=== PATIENT | male | born 1990 | race Caucasian/White ===

== ENCOUNTER 2021-12-30 12:58 | Emergency (ER) | payer OTHER, SELFPAY ==
[2021-12-30 15:11] VITALS: BP 103/67; PULSE 58; RESP 18; TEMP 36.4; O2SAT 99; BMI 25.8
--- NOTE | 2021-12-30 16:18 | ED.GENADULT ---
HPI - General Adult General Chief complaint: General Medical Stated complaint: methadone dose Time Seen by Provider: 12/30/21 16:10 Source: patient Mode of arrival: ambulatory Limitations: no limitations History of Present Illness HPI narrative: 31-year-old male history of opioid abuse presents to ED for his methadone dose. Patient states he missed his methadone dose this morning of 105 mg at the clinic. Patient states he woke up late to go to the clinic so they gave him a verrifcation letter signed by a nurse practitioner which states he take 105 mg of methadone. Patient denies any active drug use. Patient's secondary complaint is mild abdominal pain that resolved on its own. Patient denies any nausea, vomiting, chest pain, shortness of breath, weakness, dysuria, hematuria, flank pain, fever, testicular pain, or chills. Related Data Home Medications Medication Instructions Recorded Confirmed methadone 10 mg/mL oral concentrate 105 mg PO DAILY 12/30/21 12/30/21 Allergies Allergy/AdvReac Type Severity Reaction Status Date / Time amoxicillin Allergy Hives Verified 12/30/21 15:10 Penicillins [PCN] Allergy Hives Verified 12/30/21 15:10 Review of Systems Review of Systems: Methadone dose. Resolved abdominal pain Yes all other systems are reviewed and are negative PMFSH Social History Social History Advance Directives: No Advance Directives Information Provided: No Physical Exam ED Vital Signs: Vital Signs - 24 hr 12/30/21 15:11 Temperature 97.6 F Pulse Rate 58 Respiratory Rate 18 Blood Pressure 103/67 Pulse Oximetry 99 Oxygen Delivery Method Room Air BMI result Body Mass Index 25.8 Const General: cooperative, healthy appearing, comfortable, no acute distress, well developed, alert, awake and Physically active Orientation/consciousness: oriented to time and patient oriented x3 HENMT Head: Yes normal to inspection, Yes No palpable skull fracture present, Yes normocephalic, Yes atraumatic and No abrasion Eyes Other: negative icerterus General: appearance normal, both eyes and all related structures Neck Neck: Yes normal visual inspection, Yes full ROM, Yes no lymphadenopathy, Yes no meningeal signs, Yes trachea midline, Yes supple, No anterior neck swelling and No tender Chest Chest palpation & inspection: normal inspection of the chest and normal palpation of entire chest wall Resp Effort & Inspection: normal respiratory effort and able to speak in complete sentences Auscultation: clear to auscultation bilaterally Cardio Jugular venous distension: no JVD Heart sounds: S1 normal heart sound present and S2 normal heart sound present GI Inspection: Yes normal to inspection and No abdominal wall ecchymosis Palpation (GI): Soft to palpation, not firm, nontender, no guarding and not rigid General: No CVA tenderness and Yes no CVA tenderness Back/Spine/Pelvis Back: no CVA tenderness, No CVA tenderness and No back tenderness Skin Other: negative jaundice General skin exam: no rashes or lesions noted, elasticity normal and turgor normal Neuro General: oriented to time, patient oriented x3, gait normal, no meningeal signs and CN's II-XI intact bilaterally Extrem General: Yes normal to inspection and Yes full ROM Psych Appearance: grossly normal, well kempt and not disheveled Course Course Course Narrative: Verification letter given to us by patient was sent for pharmacy. Methadone on 105 mg ordered Reevaluation(s) Reevaluation #1: Patient received methadone dose. No need for medical evaluation of abdomen. Patient not in any distress. Abdomen soft and benign. Patient asymptomatic. Negative for jaundice of skin or icterus of eyes. Patient to be discharged Discharge Plan Discharge Clinical Impression: Medication refill Patient Disposition: Home, Self-Care Instructions: Medicine Refill (ED) Additional Instructions: Please tomorrow follow up with the methadone clinic to receiving methadone. Return to the ED for any physical complaints or any concerning symptoms. Please follow-up with primary care provider Prescriptions: No Action methadone 10 mg/mL Concentrate 105 mg PO DAILY Print Language: [place]
[2021-12-30] MEDS: methADONE HCl 20 MG/2 ML ORAL.CONC 105 MG PO (17:31)
== END 2021-12-30 18:54 | disposition home or self-care (01) ==
PROVIDERS: Emergency Provider Student in an Organized Health Care Education/Training Program
DX: Z76.0 Encounter for issue of repeat prescription (principal)
CPT/HCPCS: 99282; 99283

== ENCOUNTER 2022-02-07 15:23 | Emergency (ER) | payer OTHER, SELFPAY ==
[2022-02-07 15:40] VITALS: BP 112/55; PULSE 60; RESP 16; TEMP 36.6; O2SAT 98; BMI 21.5
--- NOTE | 2022-02-07 16:52 | ED_ITS ---
HPI - General Adult General Chief complaint: General Medical Stated complaint: Med refill Time Seen by Provider: 02/07/22 16:27 Source: patient Mode of arrival: ambulatory Limitations: no limitations History of Present Illness HPI narrative: 31-year-old male with history of substance abuse who presents to the ER seeking his methadone dose which he missed this morning. Patient tells me he takes 125 mg daily. He goes to be a [facility]. His last dose was yesterday. He tells me he did not make it to the clinic today because he slept in. Patient is also interested in detox. Patient using 1 bundle of heroin daily and cocaine intermittently. No additional substance use. No physical complaints. Related Data Home Medications Medication Instructions Recorded Confirmed methadone 10 mg/mL oral concentrate 105 mg PO DAILY 12/30/21 12/30/21 Allergies Allergy/AdvReac Type Severity Reaction Status Date / Time amoxicillin Allergy Hives Verified 12/30/21 15:10 Penicillins [PCN] Allergy Hives Verified 12/30/21 15:10 Review of Systems Review of Systems: Yes all other systems are reviewed and are negative Constitutional: Constitutional: Reports no additional constitutional complaints, Denies body ache(s), Denies chills, Denies fever(s), Denies headache(s) and Denies weakness Eyes: Eyes: Reports no additional eye complaints and Denies change in vision ENT: Reports system reviewed and no additional complaints, except as documented, Denies dizziness, Denies headache(s), Denies nasal congestion, Denies nasal discharge and Denies neck pain Cardiovascular: Cardiovascular: Reports no additional cardiovascular complaints, Denies chest pain, Denies leg edema and Denies dyspnea Respiratory: Respiratory: Reports no additional respiratory complaints, Denies cough and Denies dyspnea Gastrointestinal: Gastrointestinal: Reports no additional gastrointestinal complaints, Denies abdominal pain, Denies diarrhea, Denies nausea and Denies vomiting Genitourinary: Genitourinary: Denies urinary incontinence Musculoskeletal: Musculoskeletal: Reports no additional musculoskeletal complaints, Denies back pain, Denies arthralgias, Denies joint swelling, Denies neck pain, Denies numbness and Denies tingling Integumentary/Breasts: Skin/Breast: Reports system reviewed and no additional complaints, except as docu and Denies rash Neurologic: Reports system reviewed and no additional complaints, except as documented, Denies dizziness, Denies headache(s), Denies numbness, Denies tingling and Denies weakness [facility] Past Medical History Attestation statement: The following information was validated with the patient. Source: old records reviewed and nursing notes reviewed Social History Social History Advance Directives: No Advance Directives Information Provided: No Physical Exam ED Vital Signs: Vital Signs - 24 hr 02/07/22 15:40 Temperature 97.8 F Pulse Rate 60 Respiratory Rate 16 Blood Pressure 112/55 L Pulse Oximetry 98 Oxygen Delivery Method Room Air BMI result Body Mass Index 21.5 Const General: cooperative, healthy appearing, comfortable, no acute distress, well developed, alert, awake and Physically active Orientation/consciousness: oriented to time and patient oriented x3 HENMT Head: Yes normal to inspection, Yes No palpable skull fracture present, Yes normocephalic, Yes atraumatic and No abrasion Eyes Other: negative icerterus General: appearance normal, both eyes and all related structures Neck Neck: Yes normal visual inspection, Yes full ROM, Yes no lymphadenopathy, Yes no meningeal signs, Yes trachea midline, Yes supple, No anterior neck swelling and No tender Chest Chest palpation & inspection: normal inspection of the chest and normal palpation of entire chest wall Resp Effort & Inspection: normal respiratory effort and able to speak in complete sentences Auscultation: clear to auscultation bilaterally Cardio Jugular venous distension: no JVD Heart sounds: S1 normal heart sound present and S2 normal heart sound present GI Inspection: Yes normal to inspection and No abdominal wall ecchymosis Palpation (GI): Soft to palpation, not firm, nontender, no guarding and not rigid General: No CVA tenderness and Yes no CVA tenderness Back/Spine/Pelvis Back: no CVA tenderness, No CVA tenderness and No back tenderness Skin Other: negative jaundice General skin exam: no rashes or lesions noted, elasticity normal and turgor normal Neuro General: oriented to time, patient oriented x3, gait normal, no meningeal signs and CN's II-XI intact bilaterally Extrem General: Yes normal to inspection and Yes full ROM Psych Appearance: grossly normal, well kempt and not disheveled Course Course Course Narrative: Patient has detox bed at [facility] for the morning. Unable to confirm methadone dose with patient. Patient will be given 20 mg of methadone now. Patient placed in physician observation pending disposition Medical Decision Making MDM Narrative Medical decision making narrative: 31-year-old male with history of polysubstance use here seeking detox and is missed methadone dose this morning. No SI. No physical complaints. 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 Lab Data Lab results reviewed: Yes I reviewed the patient's lab results. Discharge Plan Discharge Clinical Impression: Polysubstance (including opioids) dependence, daily use Patient Disposition: Still a Patient Instructions: Polysubstance Abuse (ED) Additional Instructions: Go direct to detox Prescriptions: No Action methadone 10 mg/mL Concentrate 105 mg PO DAILY
--- NOTE | 2022-02-07 17:27 | MHC.RECOVSUP ---
? Reason for consult Recovery Support o Current location: o Identified substance use concern: Heroin - Withdrawal - Seeking ATS (detox) - Support ? Intervention: o ATS bed search started5:15PM /completed5;26PM o Community resources provided o Harm reduction discussion ? Plan: o Follow up tomorrow o Patient to follow up with HF after discharge ? Additional information: Met with Patient and patient want to go to detox.. Patient has a bed pending at [facility] for the Morning.. We also had a harm reduction talk...
[2022-02-07] MEDS: methADONE HCl 20 MG/2 ML ORAL.CONC PO (18:20)
--- NOTE | 2022-02-07 18:20 | PC.NURSE ---
pt a&ox3, vss, medicated per provider. reporting 5/10 back pain, requesting nicotine gum, provider notified. pt to go to [facility] in [facility].
[2022-02-07] MEDS: Nicotine Polacrilex 2 MG GUM BUCCAL (19:21)
[2022-02-07 21:51] LABS: COVID-19 Test Negative (Negative); IDNOW Serial# 16C4AD1C
--- NOTE | 2022-02-07 22:08 | PC.NURSE ---
pt sleeping in hallway bed, RR even and unlabored.
[2022-02-08] VITALS: BP 82/43; PULSE 40; O2SAT 99
[2022-02-08] MEDS: Nicotine Polacrilex 2 MG GUM BUCCAL ×3 (00:45→08:46)
--- NOTE | 2022-02-08 02:41 | PC.NURSE ---
pt requested more nicorette gum, medicated per provider order. pt now sleeping, RR even and unlabored.
[2022-02-08 05:07] LABS: Amphetamine Screen Urine Not Detected (Not Detect); Barbiturates, Urine Not Detected (Not Detect); Benzodiazepines Screen Urine Not Detected (Not Detect); Cannabinoid Screen Urine POSITIVE (Not Detect); Cocaine Screen Urine POSITIVE (Not Detect); Fentanyl, urine POSITIVE (Not Detect); Opiate Screen Urine POSITIVE (Not Detect); Phencyclidine Screen Urine Not Detected (Not Detect)
[2022-02-08 06:20] VITALS: BP 150/74; PULSE 88; RESP 17; TEMP 36.9; O2SAT 100
--- NOTE | 2022-02-08 08:38 | HE.PHANOTE ---
Methadone Verification Pharmacy has received the methadone verification form from Manny. Patient recieve 125 mg on 02/06/22 at [facility]. Clinic staff reporting information was RG Choi. Dianelys Uriarte, CharityD
--- NOTE | 2022-02-08 08:39 | PC.NURSE ---
methadone verification done by this rn. pt was given methadone 125mg po on 02/06/22 at [facility] in [place]. aware. paperwork faxed to [employer].
[2022-02-08] MEDS: methADONE HCl 20 MG/2 ML ORAL.CONC 125 MG PO (09:41)
== END 2022-02-08 10:40 | disposition other institution (70) ==
PROVIDERS: Nurse Practitioner Family; Emergency Provider Internal Medicine
DX: F11.29 Opioid dependence with unspecified opioid-induced disorder (principal); Z76.0 Encounter for issue of repeat prescription; Z20.822 Contact with and (suspected) exposure to COVID-19; Z79.899 Other long term (current) drug therapy
CPT/HCPCS: 80307; 87635; 99284

== ENCOUNTER 2022-02-15 09:32 | Emergency (ER) | payer OTHER, SELFPAY ==
[2022-02-15 09:42] VITALS: BP 115/57; PULSE 63; RESP 16; TEMP 36.7; O2SAT 96; BMI 22.9
--- NOTE | 2022-02-15 09:46 | ED_ITS ---
HPI - General Adult General Chief complaint: General Medical Stated complaint: Needs methadone dose Time Seen by Provider: 02/15/22 09:46 Source: patient Mode of arrival: ambulatory Limitations: no limitations History of Present Illness HPI narrative: Patient is a 31 year old male presenting to the emergency department today needing his methadone dose. Patient states that he had his last dose of 125mg methadone yesterday and he has his last dose letter. Patient states that the clinic is closed today. Patient denies any dizziness, lightheadedness, abdominal pain, nausea, vomiting, fever, chills, blurry vision, double vision, loss of vision, chest pain, difficulty breathing, shortness of breath, back pain, night sweats, pain with urination, increased urinary frequency, increased urinary urgency, blood in his urine or stool, syncope or a near syncopal episode, recent trauma or falls, bowel incontinence, bladder incontinence, bowel retention, bladder retention, or any other complaints at this time. Severity: mild Severity scale (1-10): 1 Relieving factors: none Exacerbating factors: none Associated symptoms: denies other symptoms Treatments prior to arrival: none Related Data Home Medications Medication Instructions Recorded Confirmed methadone 10 mg/mL oral concentrate 125 mg PO DAILY 12/30/21 02/08/22 Allergies Allergy/AdvReac Type Severity Reaction Status Date / Time amoxicillin Allergy Hives Verified 12/30/21 15:10 Penicillins [PCN] Allergy Hives Verified 12/30/21 15:10 Review of Systems Constitutional: Constitutional: Reports no additional constitutional complaints, Denies chills, Denies fever(s) and Denies night sweats Eyes: Eyes: Reports no additional eye complaints, Denies blurry vision, Denies change in vision, Denies diplopia, Denies eye discharge, Denies loss of vision and Denies eye pain ENT: Denies dizziness Cardiovascular: Cardiovascular: Reports no additional cardiovascular complaints, Denies chest pain, Denies lightheadedness, Denies Loss of Consciousness and Denies dyspnea Respiratory: Respiratory: Reports no additional respiratory complaints and Denies dyspnea Gastrointestinal: Gastrointestinal: Reports no additional gastrointestinal complaints, Denies abdominal pain, Denies melena, Denies hematochezia, Denies change in bowel habits and Denies change in stool character Genitourinary: Genitourinary: Reports no additional male genitourinary complaints, Denies hematuria, Denies oliguria, Denies difficulty urinating, Denies dysuria, Denies urinary frequency, Denies urinary hesitancy, Denies urinary incontinence and Denies urinary urgency Musculoskeletal: Musculoskeletal: Reports no additional musculoskeletal complaints, Denies numbness and Denies tingling Neurologic: Denies dizziness, Denies loss of vision, Denies numbness and Denies tingling Psychiatric: Psychiatric: Reports no additional psychiatric complaints Endocrine: Endocrine: Reports no additional endocrine complaints Hematologic/Lymphatic: Hematologic/Lymphatic: Reports no additional hematologic/lymphatic complaints Allergic/Immunologic: Allergic/Immunologic: Reports no additional allergic/immunologic complaints [facility] Past Medical History Attestation statement: The following information was validated with the patient. Source: old records reviewed Social History Social History Alcohol intake: never Patient Tobacco Use Status: Current everyday Tobacco user Substance Use Type: Crack/Cocaine and Heroin Advance Directives: Yes Advance Directives Information Provided: Yes Advance Directives on File: No Physical Exam ED Vital Signs: Vital Signs - 24 hr 02/15/22 09:42 Temperature 98.1 F Pulse Rate 63 Respiratory Rate 16 Blood Pressure 115/57 L Pulse Oximetry 96 Oxygen Delivery Method Room Air BMI result Body Mass Index 22.9 Const General: cooperative, no acute distress, alert and awake Nutritional Appearance: well nourished Orientation/consciousness: patient oriented x3 Limitations: no limitations HENMT Head: Yes normal to inspection and Yes atraumatic Ears: hearing grossly normal bilaterally and external ears normal General nose exam: Normal external nose present, no nasal discharge noted and no epistaxis Face and sinus: Yes normal facial exam, No abrasion and No laceration Mouth: Normal oral and palatal mucosa present, no drooling and no muffled voice Eyes General: appearance normal, both eyes and all related structures Periorbital: periorbital findings normal Eyelids: Yes eyelids normal Conjunctivae: conjunctivae normal Pupils: Equal, round and reactive pupils present EOM: EOMs intact bilaterally Neck Neck: Yes normal visual inspection, Yes full ROM and Yes no lymphadenopathy Chest Chest palpation & inspection: normal inspection of the chest Resp Effort & Inspection: normal respiratory effort and able to speak in complete sentences Auscultation: clear to auscultation bilaterally Cardio Rate: regular rate Rhythm: regular rhythm GI Inspection: Yes normal to inspection Neuro General: patient oriented x3 and moves all extremities Cranial nerves: Yes Equal, round and reactive pupils present Cognition (Neuro): normal cognition Motor exam (neuro): 5/5 motor strength present throughout Sensory Exam: Normal double simultaneous stimulation for sensation Coordination: [id number] test normal Extrem General: Yes normal to inspection, Yes full ROM and Yes capillary refill normal Psych Appearance: grossly normal Mental Status: mental status grossly normal Affect: normal affect Attitude: cooperative Thought process: Normal thought process present Thought content: Normal thought content present Insight: Good insight present (Psych) Medical Decision Making MDM Narrative Medical decision making narrative: Patient is a 31 year old male presenting to the emergency department today for his methadone dose. Patient's physical exam was unremarkable. I explained my physical exam findings to the patient. I answered all questions asked by the patient. Patient received his methadone dose without incident. I stressed the importance of the patient taking his medication as prescribed. I stressed the importance of the patient following up with his primary care provider. I stressed the importance of the patient returning to the emergency department immediately if he were to develop any dizziness, shortness of breath, difficulty breathing, chest pain, blurry vision, loss of vision, nausea, vomiting, abdominal pain, fever, chills, back pain, or any other complaints. Patient verbalized agreement and understanding with this treatment plan and discharge. Differential Diagnosis Differential Diagnosis: methadone dose Medical Records Medical records reviewed: Yes I reviewed the patient's medical records. Discharge Plan Discharge Clinical Impression: Methadone dependence Patient Disposition: Home, Self-Care Additional Instructions: Follow up with your primary care provider. Return to the emergency department immediately if your symptoms worsen or if you develop any dizziness, shortness of breath, difficulty breathing, chest pain, blurry vision, loss of vision, nausea, vomiting, abdominal pain, fever, chills, back pain, or any other complaints. Prescriptions: No Action methadone 10 mg/mL Concentrate 125 mg PO DAILY Referrals: [facility] Family Medicine [Provider Group] (Call to establish and follow up with a primary care provider. If you already have a primary care provider, please follow up with them. ) [facility] Primary CareSatya [Provider Group] (Call to establish and follow up with a primary care provider. If you already have a primary care provider, please follow up with them. ) [facility] Primary CareMehrdad [Provider Group] (Call to establish and follow up with a primary care provider. If you already have a primary care provider, please follow up with them. ) Print Language: Japanese
[2022-02-15] MEDS: methADONE HCl 20 MG/2 ML ORAL.CONC 125 MG PO (10:36)
--- NOTE | 2022-02-15 11:59 | HE.PHANOTE ---
RE METHADONE VERIFICATION RECEIVED FROM LENNY MARIN; 125MG THANKS YOLANDA
== END 2022-02-15 11:12 | disposition home or self-care (01) ==
PROVIDERS: Emergency Provider Emergency Medicine
DX: F11.20 Opioid dependence, uncomplicated (principal); F17.200 Nicotine dependence, unspecified, uncomplicated
CPT/HCPCS: 99282; 99283

== ENCOUNTER 2022-03-21 08:26 | Emergency (ER) | payer OTHER, SELFPAY ==
[2022-03-21 08:40] VITALS: BP 116/65; PULSE 91; RESP 18; TEMP 36.4; O2SAT 97; BMI 24.3
--- NOTE | 2022-03-21 10:00 | ED.GENADULT ---
HPI - General Adult General Chief complaint: General Medical <Cheryl Cook VINCENT Saldana - Last Filed: 03/21/22 18:21> Stated complaint: Needs methadone dose <Cheryl CortesVINCENT keys - Last Filed: 03/21/22 18:21> Time Seen by Provider: 03/21/22 08:56 <Cheryl Joycetanmay Saldana CNP - Last Filed: 03/21/22 18:21> Source: patient <Cheryl CortesVINCENT ekys - Last Filed: 03/21/22 18:21> Mode of arrival: ambulatory <Cherly Cook VINCENT Saldana - Last Filed: 03/21/22 18:21> Limitations: no limitations <Cheryl Cook VINCENT Saldana - Last Filed: 03/21/22 18:21> History of Present Illness HPI narrative: patient presents emergency department requesting his methadone dosing. He states he is unable to get to [facility] clinic in [place] where he typically is does. States he has not had arrived there and he is currently homeless. He states that he has a last dose letter reporting he was dosed 2 days ago at 135 mg. Furthermore, he is requesting assistance with detox. He states approximately 2 weeks ago he began using heroin and cocaine, as well as daily alcohol consumption. Stating that he has been drinking 2 pints daily. Denies any history of withdrawal seizures. denies any suicidal or homicidal ideations. Denies any hallucinations. <Cheryl Cook VINCENT Saldana - Last Filed: 03/21/22 18:21> Related Data Home medications: Home Medications Medication Instructions Recorded Confirmed methadone 10 mg/mL oral concentrate 125 mg PO DAILY 12/30/21 03/21/22 gabapentin 400 mg tablet 800 mg PO TID 03/21/22 03/21/22 hydroxyzine HCl 25 mg tablet 50 mg PO BID PRN Insomnia 03/21/22 03/21/22 nicotine (polacrilex) 4 mg gum 4 mg buccal Q1H 03/21/22 03/21/22 paroxetine HCl 40 mg tablet (Paxil) 40 mg PO DAILY 03/21/22 03/21/22 prazosin 2 mg capsule 4 mg PO BEDTIME 03/21/22 03/21/22 risperidone 0.5 mg tablet 0.5 mg PO BID 03/21/22 03/21/22 <Cheryl Saldana CNP - Last Filed: 03/21/22 18:21> Allergies/adverse reactions: Allergies Allergy/AdvReac Type Severity Reaction Status Date / Time amoxicillin Allergy Hives Verified 12/30/21 15:10 Penicillins [PCN] Allergy Hives Verified 12/30/21 15:10 <Cheryl Saldana CNP - Last Filed: 03/21/22 18:21> Review of Systems Review of Systems: Constitutional: No weight loss, fever, chills, weakness or fatigue. Skin: No rash or itching. Cardiovascular: No chest pain, chest pressure or chest discomfort. No palpitations or pedal edema. Respiratory: No shortness of breath, cough or sputum production. Gastrointestinal: No anorexia, nausea, vomiting or diarrhea. No abdominal pain or blood in stool. Genitourinary: No burning micturition. No urinary frequency or incontinence. Musculoskeletal: No muscle pain, back pain, joint pain or stiffness. Psychiatric: No depression or anxiety. <Cheryl Saldana CNP - Last Filed: 03/21/22 18:21> Yes all other systems are reviewed and are negative <Cheryl Saldana CNP - Last Filed: 03/21/22 18:21> [facility] Past Medical History Attestation statement: The following information was validated with the patient. <Cheryl Saldana CNP - Last Filed: 03/21/22 18:21> Source: old records reviewed <Cheryl Saldana CNP - Last Filed: 03/21/22 18:21> Social History Social History: Social History Alcohol intake: never Patient Tobacco Use Status: Current everyday Tobacco user Substance Use Type: Crack/Cocaine and Heroin Advance Directives: Yes Advance Directives Information Provided: Yes Advance Directives on File: No <Cheryl Saldana CNP - Last Filed: 03/21/22 18:21> Physical Exam ED Vital Signs: Vital Signs - 24 hr 03/21/22 20:28 03/22/22 06:04 Temperature 97.7 F 97.7 F Pulse Rate 70 68 Respiratory Rate 16 16 Blood Pressure 113/64 112/62 Pulse Oximetry 98 98 Oxygen Delivery Method Room Air Room Air BMI result Body Mass Index 24.3 Vital signs have been reviewed as normal and appeared to be correct. Blood pressure normal.? Heart rate normal.? Respiration rate normal. Temperature normal.? Oxygen saturation normal. <Cheryl Saldana CNP - Last Filed: 03/21/22 18:21> Vital Signs - 24 hr 03/21/22 20:28 03/22/22 06:04 Temperature 97.7 F 97.7 F Pulse Rate 70 68 Respiratory Rate 16 16 Blood Pressure 113/64 112/62 Pulse Oximetry 98 98 Oxygen Delivery Method Room Air Room Air BMI result Body Mass Index 24.3 <MONICA Bunch - Last Filed: 03/22/22 16:54> Appearance: Alert.?Oriented to person, place and time. No acute distress.?Normal affect. Eyes: Pupils equal, round and reactive to light.? ENT: Pharynx normal.?? Neck: Normal inspection.? Neck supple.?? CVS: Heart sounds normal. Normal heart rate and rhythm.? Pulses normal.?? Respiratory: No respiratory distress.? Lung sounds clear to auscultation bilaterally?? Abdomen: Soft and non-tender. ? Skin: Skin warm and dry.? Normal skin color.? Extremities: No lower extremity edema.? No calf ttp? Neuro: Moves all extremities spontaneously. Sensation intact bilaterally. CN II-XII intact. No focal neuro deficits. Ambulates with normal steady gait. <Cheryl Saldana CNP - Last Filed: 03/21/22 18:21> Course Course Course Narrative: Patient is a 31-year-old male with a past medical history of polysubstance abuse. Presenting to emergency department today for methadone dosing and has his last dose letter with him. States he has been unable to get to the facility for the past 2 days. Review of a letter from [facility] indicates that he received methadone dosing 03/19/2022 at 135 mg at 08:41. The letter however is dated today 03/21/2022 at 08:03. Patient reports that this letter was faxed from the [facility] to [facility] and he picked up the letter from the [facility], however he states that he was unable to be dosed at their clinic and was the emergency department. Nursing to contact clinic to assure there is no other reason that patient was declined dosing today at clinic. States he has not used heroin or cocaine today. Last consumed alcohol yesterday night. Denies any additional physical complaints. <Cheryl Saldana CNP - Last Filed: 03/21/22 18:21> Reevaluation(s) Reevaluation #1: Patient has been placed in physician observation as he requires additional time for assistance from care team with detox bed search. Referrals have been made. Patient is, cooperative. Will obtain CIWA scale , he is reporting feeling shaky. He is in no apparent respiratory distress. speaking clear full sentences. Respirations are regular even nonlabored. <Cheryl Saldana CNP - Last Filed: 03/21/22 18:21> Time: 13:01 <Cheryl Saldana CNP - Last Filed: 03/21/22 18:21> Reevaluation #2: CIWA scale of 10, having light sensitivity as well, mild nausea, will trial lorazepam 2 mg p.o. Patient transferred to [facility] as he will remain here overnight. Performed intake with [facility] for detox. No bed available at this time, may have open availability tomorrow. Patient will meet with recovery collector in the a.m. <Cheryl Saldana CNP - Last Filed: 03/21/22 18:21> Time: 14:06 <Cheryl Saldana CNP - Last Filed: 03/21/22 18:21> Reevaluation #3: Patient evaluated by recovery care team wrestling coach Ilia. Patient is not suicidal homicidal. Patient accepted to detox program. will be discharged to detox program. Patient vital signs are stable. Patient agreeable with plan <MONICA Bucnh - Last Filed: 03/22/22 16:54> Time: 21:56 <MONICA Bunch - Last Filed: 03/22/22 16:54> Medical Decision Making Medical Records Medical records reviewed: Yes I reviewed the patient's medical records. <Cheryl Saldana CNP - Last Filed: 03/21/22 18:21> Lab Data Labs: Lab Results 03/21/22 03/21/22 Range/Units 10:37 16:23 Urine Opiates Screen POSITIVE H (Not Detect) Urine Fentanyl Screen POSITIVE H (Not Detect) Ur Barbiturates Screen Not Detected (Not Detect) Ur Phencyclidine Scrn Not Detected (Not Detect) Ur Amphetamines Screen Not Detected (Not Detect) U Benzodiazepines Scrn Not Detected (Not Detect) Urine Cocaine Screen POSITIVE H (Not Detect) U Marijuana (THC) Screen POSITIVE H (Not Detect) COVID-19 (JAMIE) Negative (Negative) COVID-19 Clin Com See Note <Cheryl Saldana CNP - Last Filed: 03/21/22 18:21> Lab Results 03/21/22 03/21/22 Range/Units 10:37 16:23 Urine Opiates Screen POSITIVE H (Not Detect) Urine Fentanyl Screen POSITIVE H (Not Detect) Ur Barbiturates Screen Not Detected (Not Detect) Ur Phencyclidine Scrn Not Detected (Not Detect) Ur Amphetamines Screen Not Detected (Not Detect) U Benzodiazepines Scrn Not Detected (Not Detect) Urine Cocaine Screen POSITIVE H (Not Detect) U Marijuana (THC) Screen POSITIVE H (Not Detect) COVID-19 (JAMIE) Negative (Negative) COVID-19 Clin Com See Note <MONICA Bunch - Last Filed: 03/22/22 16:54> Discharge Plan Discharge Clinical Impression: Polysubstance (including opioids) dependence, daily use <Cheryl Saldana CNP - Last Filed: 03/21/22 18:21> Patient Disposition: Home, Self-Care <Cheryl Saldana CNP - Last Filed: 03/21/22 18:21> Instructions: Polysubstance Abuse (ED) <Cheryl Saldana CNP - Last Filed: 03/21/22 18:21> Additional Instructions: You are being discharged to a detox program. Please follow-up with the detox program after discharge. Return to the ED immediately for any suicidal/homicidal ideation, auditory/visual hallucinations, any physical complaints, or any other concerning symptoms. Please follow-up with primary care provider and therapist/psychiatrist. <hCeryl Saldana CNP - Last Filed: 03/21/22 18:21> Prescriptions: No Action methadone 10 mg/mL Concentrate 125 mg PO DAILY prazosin 2 mg Capsule 4 mg PO BEDTIME Rx Instructions: Take two tabs by mouth at bedtime hydroxyzine HCl 25 mg Tablet 50 mg PO BID PRN (Reason: Insomnia) Rx Instructions: Take two tabs BID PRN paroxetine HCl [Paxil] 40 mg Tablet 40 mg PO DAILY risperidone 0.5 mg Tablet 0.5 mg PO BID nicotine (polacrilex) 4 mg Gum 4 mg BUCCAL Q1H gabapentin 400 mg Tablet 800 mg PO TID <Cheryl Saldana CNP - Last Filed: 03/21/22 18:21> Interventions: ED Discharge Assessment Last Done: 03/22/22 10:17 <Cheryl Saldana CNP - Last Filed: 03/21/22 18:21> Discharge Date/Time: 03/22/22 10:20 <Cheryl Saldana CNP - Last Filed: 03/21/22 18:21> Print Language: Greenlandic <Cheryl Saldana CNP - Last Filed: 03/21/22 18:21>
--- NOTE | 2022-03-21 10:49 | MHC.RECOVRN ---
T/W met w/ pt, pt alert, oriented, resting in chair. Pt requesting detox treatment at this time. Pt states for past 2.5 weeks has been using ETOH, ARISTIDES, heroin. Pt reports 2 pints daily ETOH, 1-2 bags heroin daily, 1.5 grams daily ARISTIDES. Pt states receives 135mg Methadone daily at [facility] in [place], [place] for past 7 months. Pt reports has been through levels of treatment in the past including Detox, CSS, TSS, [facility]. Pt reports history of overdose, 20 times, no overdose in past 2 years. Pt reports has narcan, knows how to use it. T/W will begin detox bedsearch, pt agreeable to detox treatment throughout [place] at this time.
[2022-03-21 11:01] LABS: Amphetamine Screen Urine Not Detected (Not Detect); Barbiturates, Urine Not Detected (Not Detect); Benzodiazepines Screen Urine Not Detected (Not Detect); Cannabinoid Screen Urine POSITIVE (Not Detect); Cocaine Screen Urine POSITIVE (Not Detect); Fentanyl, urine POSITIVE (Not Detect); Opiate Screen Urine POSITIVE (Not Detect); Phencyclidine Screen Urine Not Detected (Not Detect)
[2022-03-21] MEDS: methADONE HCl 20 MG/2 ML ORAL.CONC 135 MG PO (11:06)
--- NOTE | 2022-03-21 11:10 | PHA.MEDREC ---
Pharmacy Consult ? Medication Reconciliation Pharmacy has completed the medication reconciliation. Received verifcation form from [facility] 135mg daily
[2022-03-21] MEDS: LORazepam 1 MG TABLET 2 MG PO (14:14)
[2022-03-21 14:49] VITALS: BP 104/62; PULSE 101; RESP 16; TEMP 37; O2SAT 97
--- NOTE | 2022-03-21 16:01 | PC.NURSE ---
pt moved to pod- report given to anyi
[2022-03-21 16:53] LABS: COVID-19 Test Negative (Negative); IDNOW Serial# 16C4AD1C
[2022-03-21] MEDS: risperiDONE 0.5 MG TABLET PO (20:23)
[2022-03-21] MEDS: Gabapentin 400 MG CAPSULE 800 MG PO (20:23)
[2022-03-21] MEDS: Prazosin HCL 1 MG CAPSULE 4 MG PO (20:24)
[2022-03-21] MEDS: hydrOXYzine HCL 50 MG TABLET PO (20:24)
[2022-03-21 20:28] VITALS: BP 113/64; PULSE 70; RESP 16; TEMP 36.5; O2SAT 98
[2022-03-21] MEDS: Nicotine Polacrilex 2 MG GUM 4 MG BUCCAL (20:28)
[2022-03-22 06:04] VITALS: BP 112/62; PULSE 68; RESP 16; TEMP 36.5; O2SAT 98
--- NOTE | 2022-03-22 06:24 | PC.NURSE ---
Patient slept through the night, no distress observed/reported, behavior non concerning but at time exhibits med seeking behavior, medication compliant, VSS, disposition per recovery team is detox bed search, may go to to [facility] today per Ilia from recovery team, Methadone dose was verified and available for administration, will continue to monitor.
[2022-03-22] MEDS: risperiDONE 0.5 MG TABLET PO (08:17)
[2022-03-22] MEDS: Gabapentin 400 MG CAPSULE 800 MG PO (08:17)
[2022-03-22] MEDS: methADONE HCl 20 MG/2 ML ORAL.CONC 125 MG PO (08:18)
[2022-03-22] MEDS: Nicotine Polacrilex 2 MG GUM 4 MG BUCCAL (08:28)
[2022-03-22] MEDS: PARoxetine HCL 40 MG TABLET PO (08:39)
--- NOTE | 2022-03-22 09:45 | MHC.RECOVSUP ---
Recovery Support note: This scientific writer followed up with patient and confirmed that he is still interested in treatment. Patient accepted to [facility]. Intake completed, admission time scheduled for 1100. Discussed with ED provider. Plan for patient to discharge and be transported via Lyft.
== END 2022-03-22 10:20 | disposition home or self-care (01) ==
PROVIDERS: Nurse Practitioner Family; Emergency Provider Emergency Medicine
DX: F11.29 Opioid dependence with unspecified opioid-induced disorder (principal); Z79.899 Other long term (current) drug therapy; Z20.822 Contact with and (suspected) exposure to COVID-19
CPT/HCPCS: 80307; 87635; 99284

== ENCOUNTER 2022-10-30 12:52 | Inpatient (IN) | payer OTHER, SELFPAY ==
--- NOTE | ~2022-10-30 | XR_ITS ---
EXAMINATION: XR CHEST CLINICAL INFORMATION: Shortness of breath, elevated troponin. COMPARISON: None available. TECHNIQUE: 2 views of the chest were obtained. FINDINGS: No significant abnormality is noted involving the heart, lungs, mediastinum, bony thorax or soft tissues. XR/XR chest 2V IMPRESSION: No acute cardiopulmonary process.
--- NOTE | ~2022-10-30 | US_ITS ---
EXAMINATION: US ABDOMEN LIMITED CLINICAL INFORMATION: Right upper quadrant pain, elevated LFTs. COMPARISON: None available. TECHNIQUE: Real-time imaging of the right upper quadrant abdominal viscera. FINDINGS: PANCREAS: Suboptimally visualized. LIVER: Unremarkable. GALLBLADDER: Unremarkable. COMMON BILE DUCT: Normal in caliber measuring 0.5 cm in diameter. RIGHT KIDNEY: 10.7 cm. Unremarkable. FREE FLUID: None. US/US abdomen limited IMPRESSION: No significant abnormality in the visualized right upper quadrant viscera.
--- NOTE | 2022-10-30 12:57 | ED_ITS ---
HPI - General Adult General Chief complaint: Psychiatric Symptoms Stated complaint: possible OD Time Seen by Provider: 10/30/22 13:09 Source: patient Mode of arrival: ambulatory Limitations: no limitations History of Present Illness HPI narrative: Patient is a 31 year old assigned male at with a history of cocaine use presenting to the emergency department today with suicidal ideation. Patient states that he has been out of skilled nursing for 2 days and in that time has used cocaine and now feels unsafe. Patient states that he wasn't sure what to do on the streets anymore. Patient denies any dizziness, lightheadedness, abdominal pain, nausea, vomiting, fever, chills, blurry vision, double vision, loss of vision, chest pain, difficulty breathing, shortness of breath, back pain, night sweats, pain with urination, increased urinary frequency, increased urinary urgency, blood in his urine or stool, syncope or a near syncopal episode, recent trauma or falls, bowel incontinence, bladder incontinence, bowel retention, bladder retention, or any other complaints at this time. Onset (ago): day(s) Relieving factors: none Exacerbating factors: none Associated symptoms: denies other symptoms Treatments prior to arrival: none Related Data Home Medications Medication Instructions Recorded Confirmed methadone 10 mg/mL oral concentrate 195 mg PO DAILY 12/30/21 10/30/22 gabapentin 400 mg tablet 800 mg PO BID 03/21/22 10/30/22 paroxetine HCl 40 mg tablet (Paxil) 40 mg PO DAILY 03/21/22 10/30/22 prazosin 2 mg capsule 4 mg PO BEDTIME 03/21/22 10/30/22 docusate sodium 100 mg capsule 100 mg PO BEDTIME PRN Constipation 10/30/22 10/30/22 paroxetine HCl 10 mg tablet 10 mg PO DAILY 10/30/22 10/30/22 quetiapine 100 mg tablet (Seroquel) 100 mg PO BEDTIME 10/30/22 10/30/22 Allergies Allergy/AdvReac Type Severity Reaction Status Date / Time amoxicillin Allergy Hives Verified 10/30/22 13:55 Penicillins [PCN] Allergy Hives Verified 10/30/22 13:55 Review of Systems Constitutional: Constitutional: Reports no additional constitutional complaints, Denies chills, Denies fever(s) and Denies night sweats Eyes: Eyes: Reports no additional eye complaints, Denies blurry vision, Denies change in vision, Denies diplopia, Denies eye discharge, Denies loss of vision and Denies eye pain ENT: Denies dizziness Cardiovascular: Cardiovascular: Reports no additional cardiovascular complaints, Denies chest pain, Denies lightheadedness, Denies Loss of Consci ousness and Denies dyspnea Respiratory: Respiratory: Reports no additional respiratory complaints and Denies dyspnea Gastrointestinal: Gastrointestinal: Reports no additional gastrointestinal complaints, Denies abdominal pain, Denies melena, Denies hematochezia, Denies change in bowel habits and Denies change in stool character Genitourinary: Genitourinary: Reports no additional male genitourinary complaints, Denies hematuria, Denies oliguria, Denies difficulty urinating, Denies dysuria, Denies urinary frequency, Denies urinary hesitancy, Denies urinary incontinence and Denies urinary urgency Musculoskeletal: Musculoskeletal: Reports no additional musculoskeletal complaints, Denies numbness and Denies tingling Neurologic: Denies dizziness, Denies loss of vision, Denies numbness and Denies tingling Psychiatric: Psychiatric: Reports suicidal ideation Endocrine: Endocrine: Reports no additional endocrine complaints Hematologic/Lymphatic: Hematologic/Lymphatic: Reports no additional hematologic/lymphatic complaints Allergic/Immunologic: Allergic/Immunologic: Reports no additional allergic/immunologic complaints PMFSH Past Medical History Attestation statement: The following information was validated with the patient. Source: old records reviewed and nursing notes reviewed Social History Social History Alcohol intake: current Alcohol intake frequency: holidays/special occasions only Patient Tobacco Use Status: Current everyday Tobacco user Smoked in Last 30 Days: Yes Substance Use Type: Crack/Cocaine and Heroin Substance Use Frequency: Chronic Longstanding Last Used Substance: Just Prior to Admission Any prior treatment program specific to substance use: No Advance Directives: No Physical Exam ED Vital Signs: Vital Signs - 24 hr 10/30/22 12:58 10/30/22 15:53 Temperature 97.5 F Pulse Rate 99 76 Respiratory Rate 18 18 Blood Pressure 129/83 107/64 Pulse Oximetry 97 Oxygen Delivery Method Room Air Room Air BMI result Body Mass Index 27.6 Const General: cooperative, no acute distress, alert and awake Nutritional Appearance: well nourished Orientation/consciousness: patient oriented x3 Limitations: no limitations HENMT Head: Yes normal to inspection and Yes atraumatic Ears: hearing grossly normal bilaterally and external ears normal General nose exam: Normal external nose present, no nasal discharge noted and no epistaxis Face and sinus: Yes normal facial exam, No abrasion and No laceration Mouth: Normal oral and palatal mucosa present, no drooling and no muffled voice Eyes General: appearance normal, both eyes and all related structures Periorbital: periorbital findings normal Eyelids: Yes eyelids normal Conjunctivae: conjunctivae normal Pupils: Equal, round and reactive pupils present EOM: EOMs intact bilaterally Neck Neck: Yes normal visual inspection, Yes full ROM and Yes no lymphadenopathy Chest Chest palpation & inspection: normal inspection of the chest Resp Effort & Inspection: normal respiratory effort and able to speak in complete sentences GI Inspection: Yes normal to inspection Neuro General: patient oriented x3 and moves all extremities Cranial nerves: Yes Equal, round and reactive pupils present Cognition (Neuro): normal cognition Motor exam (neuro): 5/5 motor strength present throughout Sensory Exam: Normal double simultaneous stimulation for sensation Coordination: [id number] test normal Extrem General: Yes normal to inspection, Yes full ROM and Yes capillary refill normal Psych Appearance: grossly normal Mental Status: mental status grossly normal Affect: normal affect Attitude: cooperative Thought process: Normal thought process present Thought content: Normal thought content present Insight: Good insight present (Psych) Course Course Course Narrative: RME performed by Melissa Tom PA-C. Patient is a 31 year old assigned male at presenting to the emergency department with suicidal ideation and cocaine use. Labs ordered. Patient placed into the behavioral health POD. Medications Administered Discontinued Medications Generic Name Dose Route Start Last Admin Trade Name Freq PRN Reason Stop Dose Admin Sodium Chloride 1,000 mls @ 999 mls/hr 10/30/22 15:45 10/30/22 15:57 Ns IV 10/30/22 16:45 999 mls/hr .Q1H1M BESSIE Administration Medical Decision Making Medical Decision Making MDM Narrative: Patient is a 31 year old assigned male at with a history of cocaine abuse presenting to the emergency department today with suicidal ideation secondary to being homeless. Patient's physical exam was unremarkable. Patient's blood work showed multiple abnormalities including a total CK of >42,670, elevated CR of 17.78, elevated BUN of 60, elevated AST of 1,286, elevated ALT of 262, and an elevated troponin of 154.8 with a decreased repeat value of 129.6. Patient's EKG was unremarkable. Patient's chest x-ray and abdominal US showed no acute process. I spoke to the regional extension service specialist who believed the elevated troponin was not cardiac related. I spoke to the hospitalist team who agreed to admission. I explained my physical exam findings as well as all test results to the patient. I answered all questions asked by the patient. Patient verbalized agreement and understanding with this treatment plan and admission. Differential Diagnosis Differential Diagnoses: The differential diagnosis associated with the presentation includes suicidal ideation, substance use / abuse, rhabdo Admission/Observation Consideration of admission/observation: Escalation of care including admission/observation considered Consult Healthcare Provider Management of the patient was discussed with: Hospitalist (agreed to admission) and Operations Specialist (spoke to the regional extension service specialist as noted in the MDM portion of this chart.) Lab Data [facility] Lab Attestation statement: I reviewed the patient's lab results. 10/30/22 13:48 10/30/22 13:48 Labs: Lab Results 10/30/22 10/30/22 10/30/22 Range/Units 13:48 13:48 13:48 WBC 9.2 (4.8-10.8) X10*3/uL RBC 4.18 L (4.60-5.80) X10*6/uL Hgb 12.1 L (14.0-18.0) g/dl Hct 35.7 L (42.0-52.0) % MCV 85.4 (80.0-98.0) fL MCH 28.9 (27.0-33.0) pg MCHC 33.9 (31.0-36.0) g/dl RDW 13.2 (11.0-16.0) % Plt Count 185 (160-400) X10*3/uL MPV 11.4 (9.4-12.4) fL Immature Gran % (Auto) 0.2 (0.0-0.4) % Neut % (Auto) 80.1 H (45-73) % Lymph % (Auto) 10.9 L (20-40) % [place] % (Auto) 6.9 (2-11) % Eos % (Auto) 1.6 (0-4) % Baso % (Auto) 0.3 (0-2) % Lymph # (Auto) 1.0 L (1.2-4.9) X10*3/uL [place] # (Auto) 0.6 (0.1-1.2) X10*3/uL Eos # (Auto) 0.2 (0.0-0.4) X10*3/uL Baso # (Auto) 0.0 (0.0-0.2) X10*3/uL Abs Immat Gran (auto) 0.02 (0.00-0.03) X10*3/uL Absolute Neuts (auto) 7.4 (2.0-8.3) x10*3/uL Absolute Nucleated RBC 0.000 (0.0-0.012) X10*3/uL Nucleated RBC % (auto) 0.0 (0.0-0.2) /100WBC Sodium 138 (135-145) mmol/L Potassium 4.2 (3.3-5.1) mmol/L Chloride 102 (96-108) mmol/L Carbon Dioxide 24 (22-29) mmol/L Anion Gap 16 (12-20) BUN 60 H (9-16) mg/dL Creatinine 1.78 H (0.5-1.4) mg/dL Estim Creat Clear Calc 62.0 Estimated GFR 45 Random Glucose 107 (60-115) mg/dL Calcium 9.4 (8.4-10.2) mg/dL Magnesium 2.9 H (1.6-2.6) mg/dL Total Bilirubin 0.8 (0.0-1.0) mg/dL AST 1286 H (5-37) U/L ALT 262 H (0-40) U/L Alkaline Phosphatase 74 (39-117) U/L Total Creatine Kinase > 15006 H (38-174) U/L Troponin I High Sens 154.8 H* (<3.5-35.0) ng/L Total Protein 7.7 (6.5-8.0) g/dL Albumin 4.8 (3.5-5.0) g/dL COVID-19 (JAMIE) (Negative) COVID-19 Clin Com 10/30/22 10/30/22 Range/Units 13:48 15:40 WBC (4.8-10.8) X10*3/uL RBC (4.60-5.80) X10*6/uL Hgb (14.0-18.0) g/dl Hct (42.0-52.0) % MCV (80.0-98.0) fL MCH (27.0-33.0) pg MCHC (31.0-36.0) g/dl RDW (11.0-16.0) % Plt Count (160-400) X10*3/uL MPV (9.4-12.4) fL Immature Gran % (Auto) (0.0-0.4) % Neut % (Auto) (45-73) % Lymph % (Auto) (20-40) % [place]isco[place] % (Auto) (2-11) % Eos % (Auto) (0-4) % Baso % (Auto) (0-2) % Lymph # (Auto) (1.2-4.9) X10*3/uL [place] # (Auto) (0.1-1.2) X10*3/uL Eos # (Auto) (0.0-0.4) X10*3/uL Baso # (Auto) (0.0-0.2) X10*3/uL Abs Immat Gran (auto) (0.00-0.03) X10*3/uL Absolute Neuts (auto) (2.0-8.3) x10*3/uL Absolute Nucleated RBC (0.0-0.012) X10*3/uL Nucleated RBC % (auto) (0.0-0.2) /100WBC Sodium (135-145) mmol/L Potassium (3.3-5.1) mmol/L Chloride (96-108) mmol/L Carbon Dioxide (22-29) mmol/L Anion Gap (12-20) BUN (9-16) mg/dL Creatinine (0.5-1.4) mg/dL Estim Creat Clear Calc Estimated GFR Random Glucose (60-115) mg/dL Calcium (8.4-10.2) mg/dL Magnesium (1.6-2.6) mg/dL Total Bilirubin (0.0-1.0) mg/dL AST (5-37) U/L ALT (0-40) U/L Alkaline Phosphatase (39-117) U/L Total Creatine Kinase (38-174) U/L Troponin I High Sens 129.6 H* (<3.5-35.0) ng/L Total Protein (6.5-8.0) g/dL Albumin (3.5-5.0) g/dL COVID-19 (JAMIE) Negative (Negative) COVID-19 Clin Com See Note Independent Interpretation I performed an independent interpretation of an: EKG, Plain X-Ray and Ultrasound Interpretation: Vent. Rate: 062 BPM ? ? Atrial Rate: 062 BPM P-R Int: 140 ms? QRS Dur: 076 ms QT Int: 450 ms ? ? ? P-R-T Axes: -05 033 029 degrees QTc Int: 456 ms Normal sinus rhythm Normal ECG No previous ECGs available DD/ 1529 ----- My interpretation is in agreement with the radiologist's impression of this imaging study. EXAMINATION: US ABDOMEN LIMITED CLINICAL INFORMATION: Right upper quadrant pain, elevated LFTs. COMPARISON: None available. TECHNIQUE: Real-time imaging of the right upper quadrant abdominal viscera. FINDINGS: PANCREAS: Suboptimally visualized. LIVER: Unremarkable. GALLBLADDER: Unremarkable. COMMON BILE DUCT: Normal in caliber measuring 0.5 cm in diameter. RIGHT KIDNEY: 10.7 cm. Unremarkable. FREE FLUID: None. US/US abdomen limited IMPRESSION: No significant abnormality in the visualized right upper quadrant viscera. Dictated By: Romeo Cruz MD Signed By: Electronically signed by Romeo Cruz MD 10/30/22 1628 EXAMINATION: XR CHEST CLINICAL INFORMATION: Shortness of breath, elevated troponin. COMPARISON: None available. TECHNIQUE: 2 views of the chest were obtained. FINDINGS: No significant abnormality is noted involving the heart, lungs, mediastinum, bony thorax or soft tissues. XR/XR chest 2V IMPRESSION: No acute cardiopulmonary process. Dictated By: Romeo Cruz MD Signed By: Electronically signed by Romeo Cruz MD 10/30/22 1632 Critical Care Time Critical Care Time Critical Care Time: Yes Total Critical Care Time: 45 Attestation: I spent 45 minutes of Critical Care Time with this patient. This does not include time spent on separately reported billable procedures. Discharge Plan Discharge Clinical Impression: Suicidal ideation, Rhabdomyolysis Patient Disposition: Admitted As Inpatient Prescriptions: No Action methadone 10 mg/mL Concentrate 195 mg PO DAILY prazosin 2 mg Capsule 4 mg PO BEDTIME Rx Instructions: Take two tabs by mouth at bedtime paroxetine HCl [Paxil] 40 mg Tablet 40 mg PO DAILY Rx Instructions: TOTAL OF 50MG DAILY gabapentin 400 mg Tablet 800 mg PO BID paroxetine HCl 10 mg tablet 10 mg PO DAILY Rx Instructions: TOTAL OF 50MG quetiapine [Seroquel] 100 mg Tablet 100 mg PO BEDTIME docusate sodium 100 mg Capsule 100 mg PO BEDTIME PRN (Reason: Constipation) Interventions: [place]-Suicide Risk Severity Scale Last Done: 10/30/22 13:30
[2022-10-30 12:58] VITALS: BP 129/83; PULSE 99; RESP 18; TEMP 36.4; O2SAT 97; BMI 27.6
--- NOTE | 2022-10-30 12:58 | ECG_ITS ---
Test Reason : COSMEE Blood Pressure : / mmHG Vent. Rate : 062 BPM Atrial Rate : 062 BPM P-R Int : 140 ms QRS Dur : 076 ms QT Int : 450 ms P-R-T Axes : -05 033 029 degrees QTc Int : 456 ms Normal sinus rhythm Normal ECG No previous ECGs available Referred By: Melissa Tom Electronically Signed By:Tony Mock
--- NOTE | 2022-10-30 13:24 | PC.NURSE ---
Pt reports released from [facility] after 5 months with charges dropped. Claims he did IV Cocaine. Homeless. Reporting SI thoughts.
--- NOTE | 2022-10-30 13:40 | PC.NURSE ---
Call to [facility] to verify Methadone dose. No answer at this time.
[2022-10-30 13:54] LABS: MANUAL DIFF FLAG NO
[2022-10-30 13:55] LABS: Basophils Percent Auto 0.3 % (0-2); Eosinophils Absolute Auto 0.2 X10*3/uL (0.0-0.4); Eosinophils Percent Auto 1.6 % (0-4); Hematocrit 35.7 % (42.0-52.0); Hemoglobin 12.1 g/dl (14.0-18.0); Imm Gran Abs Auto 0.02 X10*3/uL (0.00-0.03); Imm Gran Pct Auto 0.2 % (0.0-0.4); Lymphocytes Percent Auto 10.9 % (20-40); Mean Corpuscular HGB Conc 33.9 g/dl (31.0-36.0); Mean Corpuscular Hemoglobin 28.9 pg (27.0-33.0); Mean Corpuscular Volume 85.4 fL (80.0-98.0); Mean Platelet Volume 11.4 fL (9.4-12.4); Monocytes Absolute Auto 0.6 X10*3/uL (0.1-1.2); Monocytes Percent Auto 6.9 % (2-11); Neutrophils Absolute Auto 7.4 x10*3/uL (2.0-8.3); Neutrophils Percent Auto 80.1 % (45-73); Platelet Count 185 X10*3/uL (160-400); Red Blood Count 4.18 X10*6/uL (4.60-5.80); Red Cell Distribution Width 13.2 % (11.0-16.0); White Blood Count 9.2 X10*3/uL (4.8-10.8)
--- NOTE | 2022-10-30 13:59 | PC.NURSE ---
call to Pharmacy for verification of medications from [facility].
[2022-10-30 14:08] LABS: COVID-19 Test Negative (Negative); IDNOW Serial# 08D9AD1C
--- NOTE | 2022-10-30 14:18 | PHA.MEDREC ---
Pharmacy Consult ? Medication Reconciliation Pharmacy has completed the medication reconciliation. Spoke to [facility] and got rx list
[2022-10-30 14:35] LABS: Alanine Aminotransferase 262 U/L (0-40); Albumin Level 4.8 g/dL (3.5-5.0); Alkaline Phosphatase 74 U/L (39-117); Anion Gap 16 (12-20); Aspartate Amino Transferase 1286 U/L (5-37); Bilirubin Total 0.8 mg/dL (0.0-1.0); Blood Urea Nitrogen 60 mg/dL (9-16); Calcium 9.4 mg/dL (8.4-10.2); Carbon Dioxide 24 mmol/L (22-29); Chloride 102 mmol/L (96-108); Estimated Glomerular Filt Rate 45; Glucose Random 107 mg/dL (60-115); Magnesium 2.9 mg/dL (1.6-2.6); Potassium 4.2 mmol/L (3.3-5.1); Sodium 138 mmol/L (135-145); Total Protein 7.7 g/dL (6.5-8.0)
[2022-10-30 15:20] LABS: Troponin-I High Sensitivity 154.8 ng/L (<3.5-35.0)
[2022-10-30 15:53] VITALS: BP 107/64; PULSE 76; RESP 18
--- NOTE | 2022-10-30 15:54 | PC.NURSE ---
Alert and oriented. Denies any sob or chest pain. VSS. fluids running as ordered.
[2022-10-30] MEDS: 0.9 % Sodium Chloride 1,000 ML 999 ML IV (15:57)
[2022-10-30 16:11] LABS: Troponin-I High Sensitivity 129.6 ng/L (<3.5-35.0)
--- NOTE | 2022-10-30 16:28 | PC.NURSE ---
continues with constant deburr technician for safety
[2022-10-30] MEDS: Nicotine 14 MG PATCH.TD24 TRANSDERMA (17:37)
[2022-10-30] MEDS: Enoxaparin Sodium 40 MG/0.4 ML SYRINGE SUBCUT (17:37)
[2022-10-30] MEDS: 0.9 % Sodium Chloride 1,000 ML 250 ML IVCONT (17:40)
--- NOTE | 2022-10-30 17:42 | P.HPHOSP_ITS ---
History of Present Illness Date of Service: 10/30/22 Attending physician on admission: Christin Cain Chief Complaint: feeling unsafe/ bilateral arm swelling 31-year-old gentleman with past medical history significant for PTSD, depression, dissociated identity disorder on multiple psychiatric medication also history of IV drug use discharged from senior living 2 days ago, was injecting IV cocaine to both antecubital fossa this morning noted puffiness and discomfort both upper extremities associated with nausea and left upper quadrant abdominal discomfort and felt unsafe therefore came to the emergency room he also complained of associated headache, lightheadedness, and dizziness , denied ass ociated fever, chills, no chest pain, no shortness of breath, no back pain, no urinary symptoms of urgency, no frequency, denies trauma or falls, [place] [address], AST 1286, ALT 262, magnesium 2.9, creatinine 1.78, BUN 60, troponin 154.8, repeat troponin 129.6, EKG showed no acute ischemia, vitals stable patient treated in the emergency room with IV fluid and now being admitted to [facility] with diagnosis of acute renal failure, rhabdomyolysis and elevated troponin likely due to cocaine use and also for suicidal ideation. Review of Systems Review of Systems: General + headache lightheadedness and dizziness,no fever chills. CVS no chest pain, no palpitation. Respiratory no cough, no sob Gastrointestinal + nausea, no vomiting, left upper quadrant abdominal pain no diarrhea, no constipation no urgency, no burning, no frequency musculoskeletal bilateral arm discomfort and swelling Yes all other systems are reviewed and are negative PMFSH Social History Household Members Other:: homeless Do you presently have visiting nurse or other home services: No Alcohol intake: current Alcohol intake frequency: holidays/special occasions only Patient Tobacco Use Status: Current everyday Tobacco user Tobacco use type: Cigarette Smoked in Last 30 Days: Yes Use of substances other than those prescribed or required for medical reasons: Yes Substance Use Type: Crack/Cocaine, Heroin and Methamphetamine Substance Use Frequency: Chronic Longstanding Last Used Substance: Just Prior to Admission Currently Displaying Signs/Symptoms of Drug Intoxication Withdrawal: No Any prior treatment program specific to substance use: No Have you been hit, kicked, punched, or otherwise hurt by someone within the past year? If so, by whom?: No Do you feel safe in your current relationship?: Yes Is there a partner from a previous relationship who is making you feel unsafe now?: No Are you made to feel afraid or neglected: No Advance Directives: No Do you have thoughts of harming others: Constant Do you have a plan to hurt others: No Plan Recently lost weight without trying: No Nutrition Risks: Poor intake 0-25% >4 days service: No Current occupational status: unemployed Meds Allergies Allergy/AdvReac Type Severity Reaction Status Date / Time amoxicillin Allergy Hives Verified 10/30/22 13:55 Penicillins [PCN] Allergy Hives Verified 10/30/22 13:55 Active Medications: Current Medications Docusate Sodium (Docusate Sodium 100 Mg Capsule) 100 mg PO BEDTIME PRN PRN Reason: Constipation Enoxaparin Sodium (Enoxaparin Sodium 40 Mg/0.4 Ml Syringe) 40 mg SUBCUT Q24H [facility] Gabapentin (Gabapentin 400 Mg Capsule) 800 mg PO BID [facility] Sodium Chloride (Ns) 1,000 mls @ 250 mls/hr IVCONT .Q4H [facility] Stop: 10/30/22 21:29 Melatonin (Melatonin 3 Mg Tablet) 6 mg PO BEDTIME PRN PRN Reason: Insomnia Methadone HCl (Methadone Hcl 20 Mg/2 Ml Oral.Conc) 195 mg PO DAILY [facility] Nicotine (Nicotine 14 Mg Patch.Td24) 14 mg TRANSDERMA DAILY [facility] Omeprazole (Omeprazole 20 Mg Capsule.Dr) 20 mg PO DAILY@0630 [facility] Ondansetron HCl (Ondansetron Hcl 4 Mg/2 Ml Vial) 4 mg IVPUSH Q8H PRN PRN Reason: Nausea and Vomiting Oxycodone HCl (Oxycodone Hcl Immed Release 5 Mg Tablet) 5 mg PO Q6H PRN PRN Reason: Pain, Severe (Pain Scale 7-10) Paroxetine HCl (Paroxetine Hcl 40 Mg Tablet) 40 mg PO DAILY [facility] Pharmacy Consult (Consult Rx Perform Med Rec) 1 each MISCELLANE ONCE PRN PRN Reason: Consult order Quetiapine Fumarate (Quetiapine Fumarate 100 Mg Tablet) 100 mg PO BEDTIME [facility] Sodium Chloride (0.9 % Sodium Chloride Flush 3 Ml Syringe) 3 ml IVFLUSH QSHIFT [facility] Home Medications Medication Instructions Recorded Confirmed Last Taken Type methadone 10 mg/mL oral concentrate 195 mg PO DAILY 12/30/21 10/30/22 03/21/22 History gabapentin 400 mg tablet 800 mg PO BID 03/21/22 10/30/22 Unknown History paroxetine HCl 40 mg tablet (Paxil) 40 mg PO DAILY 03/21/22 10/30/22 Unknown History prazosin 2 mg capsule 4 mg PO BEDTIME 03/21/22 10/30/22 Unknown History docusate sodium 100 mg capsule 100 mg PO BEDTIME PRN Constipation 10/30/22 10/30/22 Unknown History paroxetine HCl 10 mg tablet 10 mg PO DAILY 10/30/22 10/30/22 Unknown History quetiapine 100 mg tablet (Seroquel) 100 mg PO BEDTIME 10/30/22 10/30/22 Unknown History Physical Exam Vital Signs and Narrative: Vital Signs: Last Vital Signs Temp 97.5 F 10/30/22 12:58 Pulse 76 10/30/22 15:53 Resp 18 10/30/22 15:53 BP 107/64 10/30/22 15:53 Pulse Ox 97 10/30/22 12:58 O2 Del Method Room Air 10/30/22 15:53 BMI result Body Mass Index 27.6 Const: Other: General awake alert x3, resting comfortably in no acute distress. HEENT:PERRLA,EOMI, anicteric sclera Neck supple no JVD. CVS regular rate rhythm, Respiratory lungs clear to auscultation, no respiratory distress, no wheeze, no rhonchi. Gastrointestinal abdomen soft, mild right upper quadrant tenderness to palpation, no distension,bowel sounds audible, no guarding , no rigidity. Extremities no edema. Neuro nonfocal ,speech clear. Skin bruising bilateral antecubital fossa at site of IV drug use, no surrounding redness psych appropriate affect Results Labs 10/30/22 13:48 10/30/22 13:48 Labs: Laboratory Results - last 24 hr 10/30/22 10/30/22 10/30/22 13:48 13:48 13:48 MCV 85.4 MCH 28.9 MCHC 33.9 RDW 13.2 Plt Count 185 MPV 11.4 Immature Gran % (Auto) 0.2 Neut % (Auto) 80.1 H Lymph % (Auto) 10.9 L [place] % (Auto) 6.9 Eos % (Auto) 1.6 Baso % (Auto) 0.3 Lymph # (Auto) 1.0 L [place] # (Auto) 0.6 Eos # (Auto) 0.2 Baso # (Auto) 0.0 Abs Immat Gran (auto) 0.02 Absolute Neuts (auto) 7.4 Absolute Nucleated RBC 0.000 Nucleated RBC % (auto) 0.0 Anion Gap 16 Estim Creat Clear Calc 62.0 Estimated GFR 45 Random Glucose 107 Calcium 9.4 Magnesium 2.9 H Total Bilirubin 0.8 AST 1286 H ALT 262 H Alkaline Phosphatase 74 Total Creatine Kinase > 93398 H Troponin I High Sens 154.8 H* Total Protein 7.7 Albumin 4.8 COVID-19 (JAMIE) COVID-19 Clin Com 10/30/22 10/30/22 13:48 15:40 MCV MCH MCHC RDW Plt Count MPV Immature Gran % (Auto) Neut % (Auto) Lymph % (Auto) [place] % (Auto) Eos % (Auto) Baso % (Auto) Lymph # (Auto) [place] # (Auto) Eos # (Auto) Baso # (Auto) Abs Immat Gran (auto) Absolute Neuts (auto) Absolute Nucleated RBC Nucleated RBC % (auto) Anion Gap Estim Creat Clear Calc Estimated GFR Random Glucose Calcium Magnesium Total Bilirubin AST ALT Alkaline Phosphatase Total Creatine Kinase Troponin I High Sens 129.6 H* Total Protein Albumin COVID-19 (JAMIE) Negative COVID-19 Clin Com See Note Imaging Radiologist's Impressions: Impressions Abdomen Ultrasound 10/30/22 15:46 IMPRESSION: No significant abnormality in the visualized right upper quadrant viscera. Chest X-Ray 10/30/22 16:07 IMPRESSION: No acute cardiopulmonary process. Assessment and Plan (1) Polysubstance (including opioids) dependence, daily use: Status: Acute Plan 31-year-old gentleman with history of PTSD, depression, dissociated identity disorder discharged from senior living 2 days ago, has been using IV cocaine presented to [facility] for feeling unsafe associated with symptoms of upper extremity puffiness swelling discomfort as well as right upper quadrant discomfort associated with nausea patient diagnosed to have acute renal failure with rhabdomyolysis and elevated liver enzymes and troponin. # acute rhabdomyolysis due to IV cocaine use, patient denies history of trauma or fall, h/hct low but stable will aggressively treat with IV fluids follow renal function and CPK. nephrology consult no evidence of compartment syndrome. 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 # IV cocaine use disorder will place on as needed anxiolytics, obtain Addiction Team consult # feeling unsafe/suicidal ideation patient denies any plan will place sitter obtain care team consult once medically cleared # hypermagnesemia likely due to acute kidney injury follow magnesium level. # transaminitis with significantly elevated AST/alt , renal ultrasound showed no significant abnormality unremarkable gallbladder and liver and normal caliber CBD, check hepatitis profile question related to cocaine use patient denies use of alcohol. # Tobacco use disorder counseling done placed on nicotine patch. # PTSD/ depression and DID continue home medications including Seroquel and Paxil. # opioid use disorder continue methadone verify dose at a.m. # neuropathy continue gabapentin. # DVT prophylaxis with Lovenox. # code status full code. in my clinical judgment patient need to night inpatient stay for management of acute renal failure related to rhabdomyolysis requiring IV fluids and close monitoring of renal function and electrolytes. Time Spent With Patient Time: Total time managing care of this patient today ____ minutes. Quality Stroke Does the patient have a stroke diagnosis?: No VTE Prior VTE?: No VTE Risk Level:: Medical - moderate - high VTE Device Contraindication: Treatment Not Indicated VTE Drug Contraindication: N/A - Med Ordered
--- NOTE | 2022-10-30 17:44 | PC.NURSE ---
alert and oriented. denies sob or chest pain. vss. nsr on monitor. fluids running as ordered.
--- NOTE | 2022-10-30 18:20 | PC.NURSE ---
Fluids changed per order. Report given to floor.
--- NOTE | 2022-10-30 18:32 | PC.NURSE ---
Patient has not voided since admission to ER however stating that he finally feels like he can go. Stating he will ask for a urinal when transferred to room 486. Provider aware. Security called for transfer to unit
[2022-10-30 18:52] VITALS: BP 114/64; PULSE 66; RESP 21; TEMP 36.9; O2SAT 99
[2022-10-30 18:59] LABS: Phosphorus 3.2 mg/dL (2.7-4.5)
[2022-10-30 19:29] VITALS: BMI 27.6
[2022-10-30] MEDS: ondansetron HCL 4 MG/2 ML VIAL IVPUSH (20:31)
[2022-10-30] MEDS: QUEtiapine Fumarate 100 MG TABLET PO (20:36)
[2022-10-30] MEDS: Gabapentin 400 MG CAPSULE 800 MG PO (20:36)
[2022-10-30] MEDS: oxyCODONE HCl Immed Release 5 MG TABLET PO (20:39)
[2022-10-30] MEDS: 0.9 % Sodium Chloride 1,000 ML 200 ML IVCONT (22:16)
[2022-10-30 22:32] LABS: Anion Gap 10 (12-20); Blood Urea Nitrogen 47 mg/dL (9-16); Calcium 8.2 mg/dL (8.4-10.2); Carbon Dioxide 26 mmol/L (22-29); Chloride 106 mmol/L (96-108); Creatinine Clr Calc Pharmacy 90.5; Estimated Glomerular Filt Rate > 60; Glucose Random 118 mg/dL (60-115); Potassium 3.9 mmol/L (3.3-5.1); Sodium 138 mmol/L (135-145)
[2022-10-30 23:48] VITALS: BP 92/55; PULSE 63; RESP 18; TEMP 36.4; O2SAT 95
[2022-10-31 04:00] VITALS: BP 100/58; PULSE 60; RESP 18; TEMP 36.5; O2SAT 98
[2022-10-31] MEDS: Omeprazole 20 MG CAPSULE.DR PO (06:16)
[2022-10-31] MEDS: 0.9 % Sodium Chloride 1,000 ML 200 ML IVCONT (06:18)
--- NOTE | 2022-10-31 07:02 | PM.CNNEP ---
History of Present Illness Reason for Consult Consult date: 10/31/22 Chief Complaint Chief complaint: RONA/RHABDO/SI History of Present Illness Narrative: ?31-year-old gentleman with no prior past history of CKD admitted with rhabdomyolysis found to have elevated serum creatinine. He has a history of IV drug use and was recently discharged from retirement and was injecting IV cocaine to both antecubital fossa. He presented with puffiness and discomfort both upper extremities associated with nausea and left upper quadrant abdominal discomfort. He also complained of lightheadedness, and dizziness but he denied fever, chills, chest pain, shortness of breath. He was started on IV fluid. Review of Systems Review of Systems 10 points ROS negative except for pertinent in [facility] Social History Social History Household Members Other:: homeless Do you presently have visiting nurse or other home services: No Alcohol intake: current Alcohol intake frequency: holidays/special occasions only Patient Tobacco Use Status: Current everyday Tobacco user Tobacco use type: Cigarette Smoked in Last 30 Days: Yes Use of substances other than those prescribed or required for medical reasons: Yes Substance Use Type: Crack/Cocaine, Heroin and Methamphetamine Substance Use Frequency: Chronic Longstanding Last Used Substance: Just Prior to Admission Currently Displaying Signs/Symptoms of Drug Intoxication Withdrawal: No Any prior treatment program specific to substance use: No Have you been hit, kicked, punched, or otherwise hurt by someone within the past year? If so, by whom?: No Do you feel safe in your current relationship?: Yes Is there a partner from a previous relationship who is making you feel unsafe now?: No Are you made to feel afraid or neglected: No Advance Directives: No Do you have thoughts of harming others: Constant Do you have a plan to hurt others: No Plan Recently lost weight without trying: No Nutrition Risks: Poor intake 0-25% >4 days Meds Allergies Allergy/AdvReac Type Severity Reaction Status Date / Time amoxicillin Allergy Hives Verified 10/30/22 13:55 Penicillins [PCN] Allergy Hives Verified 10/30/22 13:55 Active Medications: Current Medications Docusate Sodium (Docusate Sodium 100 Mg Capsule) 100 mg PO BEDTIME PRN PRN Reason: Constipation Enoxaparin Sodium (Enoxaparin Sodium 40 Mg/0.4 Ml Syringe) 40 mg SUBCUT Q24H [facility] Last Admin: 10/30/22 17:37 Dose: 40 mg Gabapentin (Gabapentin 400 Mg Capsule) 800 mg PO BID [facility] Last Admin: 10/30/22 20:36 Dose: 800 mg Sodium Chloride (Ns) 1,000 mls @ 200 mls/hr IVCONT .Q5H [facility] Stop: 10/31/22 08:20 Last Admin: 10/31/22 06:18 Dose: 200 mls/hr Melatonin (Melatonin 3 Mg Tablet) 6 mg PO BEDTIME PRN PRN Reason: Insomnia Methadone HCl (Methadone Hcl 20 Mg/2 Ml Oral.Conc) 195 mg PO DAILY [facility] Nicotine (Nicotine 14 Mg Patch.Td24) 14 mg TRANSDERMA DAILY [facility] Last Admin: 10/30/22 17:37 Dose: 14 mg Omeprazole (Omeprazole 20 Mg Capsule.Dr) 20 mg PO DAILY@0630 [facility] Last Admin: 10/31/22 06:16 Dose: 20 mg Ondansetron HCl (Ondansetron Hcl 4 Mg/2 Ml Vial) 4 mg IVPUSH Q8H PRN PRN Reason: Nausea and Vomiting Last Admin: 10/30/22 20:31 Dose: 4 mg Oxycodone HCl (Oxycodone Hcl Immed Release 5 Mg Tablet) 5 mg PO Q6H PRN PRN Reason: Pain, Severe (Pain Scale 7-10) Last Admin: 10/30/22 20:39 Dose: 5 mg Paroxetine HCl (Paroxetine Hcl 40 Mg Tablet) 40 mg PO DAILY [facility] Pharmacy Consult (Consult Rx Perform Med Rec) 1 each MISCELLANE ONCE PRN PRN Reason: Consult order Quetiapine Fumarate (Quetiapine Fumarate 100 Mg Tablet) 100 mg PO BEDTIME [facility] Last Admin: 10/30/22 20:36 Dose: 100 mg Sodium Chloride (0.9 % Sodium Chloride Flush 3 Ml Syringe) 3 ml IVFLUSH QSHIFT [facility] Last Admin: 10/31/22 02:39 Dose: Not Given Home Medications Medication Instructions Recorded Confirmed Last Taken Type methadone 10 mg/mL oral concentrate 195 mg PO DAILY 12/30/21 10/30/22 03/21/22 History gabapentin 400 mg tablet 800 mg PO BID 03/21/22 10/30/22 Unknown History paroxetine HCl 40 mg tablet (Paxil) 40 mg PO DAILY 03/21/22 10/30/22 Unknown History prazosin 2 mg capsule 4 mg PO BEDTIME 03/21/22 10/30/22 Unknown History docusate sodium 100 mg capsule 100 mg PO BEDTIME PRN Constipation 10/30/22 10/30/22 Unknown History paroxetine HCl 10 mg tablet 10 mg PO DAILY 10/30/22 10/30/22 Unknown History quetiapine 100 mg tablet (Seroquel) 100 mg PO BEDTIME 10/30/22 10/30/22 Unknown History Physical Exam Vital Signs: Last Vital Signs Temp 97.7 F 10/31/22 04:00 Pulse 60 10/31/22 04:00 Resp 18 10/31/22 04:00 BP 100/58 L 10/31/22 04:00 Pulse Ox 98 10/31/22 04:00 O2 Del Method Room Air 10/31/22 04:00 BMI result Body Mass Index 27.6 Const General: comfortable, no acute distress and well developed HEENT Head: Yes normocephalic and Yes atraumatic Neck Neck: Yes supple Resp Auscultation: clear to auscultation bilaterally Cardio Heart sounds: S1 normal heart sound present and S2 normal heart sound present GI Palpation (GI): Soft to palpation and nontender Extrem General: No edema Results Lab Results 10/30/22 13:48 10/30/22 21:58 Lab results: Chemistry 10/30/22 10/30/22 13:48 21:58 Sodium 138 138 Potassium 4.2 3.9 Carbon Dioxide 24 26 BUN 60 H 47 H Creatinine 1.78 H 1.22 Calcium 9.4 8.2 L D Phosphorus 3.2 Hematology 10/30/22 13:48 WBC 9.2 Hgb 12.1 L Plt Count 185 Assessment and Plan (1) RONA (acute kidney injury): Status: Acute (2) Rhabdomyolysis: Status: Acute Plan multifactorial RONA; -heme pigment nephrotoxicity -renal hypoperfusion normal baseline kidney function REC c/w IVF 0.9% 100 cc/hr no need for urine alkalinization follow cpk monitor urine output follow kidney function and electrolytes Time Spent With Patient Time: Total time managing care of this patient today ____ minutes. Procedures Date of Service Date of Service: 10/31/22
[2022-10-31 07:08] LABS: Hematocrit 30.9 % (42.0-52.0); Hemoglobin 10.3 g/dl (14.0-18.0); Mean Corpuscular HGB Conc 33.3 g/dl (31.0-36.0); Mean Corpuscular Hemoglobin 29.7 pg (27.0-33.0); Mean Platelet Volume 11.4 fL (9.4-12.4); Platelet Count 166 X10*3/uL (160-400); Red Blood Count 3.47 X10*6/uL (4.60-5.80); Red Cell Distribution Width 13.6 % (11.0-16.0); White Blood Count 5.5 X10*3/uL (4.8-10.8)
[2022-10-31 07:25] VITALS: BP 102/54; PULSE 64; RESP 18; TEMP 36.1; O2SAT 98
[2022-10-31 07:27] LABS: Anion Gap 10 (12-20); Blood Urea Nitrogen 32 mg/dL (9-16); Calcium 8.2 mg/dL (8.4-10.2); Carbon Dioxide 25 mmol/L (22-29); Chloride 112 mmol/L (96-108); Estimated Glomerular Filt Rate > 60; Glucose Random 96 mg/dL (60-115); Potassium 4.2 mmol/L (3.3-5.1); Sodium 143 mmol/L (135-145)
[2022-10-31 07:51] LABS: Alanine Aminotransferase 201 U/L (0-40); Albumin Level 3.6 g/dL (3.5-5.0); Alkaline Phosphatase 60 U/L (39-117); Aspartate Amino Transferase 728 U/L (5-37); Bilirubin Direct < 0.2 mg/dL (0.0-0.5); Bilirubin Total 0.2 mg/dL (0.0-1.0); Cholesterol 201 mg/dL; HDL Cholesterol 32 mg/dL; LDL Cholesterol Calculated 132 mg/dl; Magnesium 2.8 mg/dL (1.6-2.6); Total Protein 5.7 g/dL (6.5-8.0); Triglycerides 188 mg/dL
--- NOTE | 2022-10-31 08:05 | MHC.CM.PN ---
CM met with Patient at bedside. Patient reports just being out of skilled nursing X2 days [employer] and presently being homeless. DC plan is TBD pending Care Team and Recovery Team consults r/t SI & Polysubstance Abuse. CM has initiated and will follow for dc planning. Patient has no PCP and he received Pfizer/Covid vax x1. Patient obtains his Methadone from [facility] in [place].
[2022-10-31] MEDS: Gabapentin 400 MG CAPSULE 800 MG PO ×2 (09:52→22:07)
[2022-10-31] MEDS: PARoxetine HCL 40 MG TABLET PO (09:52)
[2022-10-31] MEDS: methADONE HCl 20 MG/2 ML ORAL.CONC 195 MG PO (09:52)
[2022-10-31] MEDS: 0.9 % Sodium Chloride Flush 3 ML SYRINGE IVFLUSH (09:52)
[2022-10-31] MEDS: Nicotine 14 MG PATCH.TD24 TRANSDERMA (09:53)
--- NOTE | 2022-10-31 11:10 | HO.PM.IMPN ---
Subjective Subjective Date of Service: 10/31/22 Interval History: Feeling better this morning complaining of bilateral upper extremities soreness and discomfort, denies fever chills, no nausea, no vomiting, no abdominal pain or diarrhea tolerating diet, no acute issues overnight remains hemodynamically stable, patient feels unsafe. Review of Systems Review of Systems: Yes all other systems are reviewed and are negative Physical Exam Vital Signs: Vital Signs: Last Vital Signs Temp 97.0 F 10/31/22 07:25 Pulse 64 10/31/22 07:25 Resp 18 10/31/22 07:25 BP 102/54 L 10/31/22 07:25 Pulse Ox 98 10/31/22 07:25 O2 Del Method Room Air 10/31/22 07:25 BMI result Body Mass Index 27.6 Const: Other: General? awake alert x3, resting comfortably in no acute distress. Neck supple no JVD. CVS? regular rate rhythm, Respiratory lungs clear to auscultation, no respiratory distress, no wheeze, no rhonchi. Gastrointestinal abdomen soft,?nontender, no distension,bowel sounds audible, no guarding , no rigidity. Extremities no edema. Both upper extremities no swelling, no discoloration, no redness, no evidence of compartment syndrome. Neuro nonfocal ,speech clear. Skin? mild bruising bilateral antecubital fossa at site of IV drug use, no surrounding redness psych appropriate affect Objective Data Active Medications Docusate Sodium (Docusate Sodium 100 Mg Capsule) 100 mg PO BEDTIME PRN PRN Reason: Constipation Enoxaparin Sodium (Enoxaparin Sodium 40 Mg/0.4 Ml Syringe) 40 mg SUBCUT Q24H [facility] Last Admin: 10/30/22 17:37 Dose: 40 mg Documented By: AYLIN Gabapentin (Gabapentin 400 Mg Capsule) 800 mg PO BID [facility] Last Admin: 10/31/22 09:52 Dose: 800 mg Documented By: DURGA Sodium Chloride (Ns) 1,000 mls @ 100 mls/hr IVCONT .Q10H [facility] Melatonin (Melatonin 3 Mg Tablet) 6 mg PO BEDTIME PRN PRN Reason: Insomnia Methadone HCl (Methadone Hcl 20 Mg/2 Ml Oral.Conc) 195 mg PO DAILY [facility] Last Admin: 10/31/22 09:52 Dose: 195 mg Documented By: DURGA Nicotine (Nicotine 14 Mg Patch.Td24) 14 mg TRANSDERMA DAILY [facility] Last Admin: 10/31/22 09:53 Dose: 14 mg Documented By: DURGA Omeprazole (Omeprazole 20 Mg Capsule.Dr) 20 mg PO DAILY@0630 [facility] Last Admin: 10/31/22 06:16 Dose: 20 mg Documented By: LUIS Ondansetron HCl (Ondansetron Hcl 4 Mg/2 Ml Vial) 4 mg IVPUSH Q8H PRN PRN Reason: Nausea and Vomiting Last Admin: 10/30/22 20:31 Dose: 4 mg Documented By: LUIS Comments: med did not save during scan Oxycodone HCl (Oxycodone Hcl Immed Release 5 Mg Tablet) 5 mg PO Q6H PRN PRN Reason: Pain, Severe (Pain Scale 7-10) Last Admin: 10/30/22 20:39 Dose: 5 mg Documented By: LUIS Paroxetine HCl (Paroxetine Hcl 40 Mg Tablet) 40 mg PO DAILY [facility] Last Admin: 10/31/22 09:52 Dose: 40 mg Documented By: DURGA Pharmacy Consult (Consult Rx Perform Med Rec) 1 each MISCELLANE ONCE PRN PRN Reason: Consult order Quetiapine Fumarate (Quetiapine Fumarate 100 Mg Tablet) 100 mg PO BEDTIME [facility] Last Admin: 10/30/22 20:36 Dose: 100 mg Documented By: LUIS Sodium Chloride (0.9 % Sodium Chloride Flush 3 Ml Syringe) 3 ml IVFLUSH QSHIFT [facility] Last Admin: 10/31/22 09:52 Dose: 3 ml Documented By: DURGA Labs 10/31/22 06:30 10/31/22 06:30 Labs: Laboratory Results - last 24 hr 10/30/22 10/30/22 10/30/22 13:48 13:48 13:48 MCV 85.4 MCH 28.9 MCHC 33.9 RDW 13.2 Plt Count 185 MPV 11.4 Immature Gran % (Auto) 0.2 Neut % (Auto) 80.1 H Lymph % (Auto) 10.9 L [place] % (Auto) 6.9 Eos % (Auto) 1.6 Baso % (Auto) 0.3 Lymph # (Auto) 1.0 L [place] # (Auto) 0.6 Eos # (Auto) 0.2 Baso # (Auto) 0.0 Abs Immat Gran (auto) 0.02 Absolute Neuts (auto) 7.4 Absolute Nucleated RBC 0.000 Nucleated RBC % (auto) 0.0 Anion Gap 16 Estim Creat Clear Calc 62.0 Estimated GFR 45 Random Glucose 107 Calcium 9.4 Phosphorus 3.2 Magnesium 2.9 H Total Bilirubin 0.8 Direct Bilirubin AST 1286 H ALT 262 H Alkaline Phosphatase 74 Total Creatine Kinase > 80469 H Troponin I High Sens 154.8 H* Total Protein 7.7 Albumin 4.8 Triglycerides Cholesterol LDL Cholesterol, Calc HDL Cholesterol COVID-19 (JAMIE) COVID-19 Clin Com 10/30/22 10/30/22 10/30/22 13:48 15:40 21:58 MCV MCH MCHC RDW Plt Count MPV Immature Gran % (Auto) Neut % (Auto) Lymph % (Auto) [place] % (Auto) Eos % (Auto) Baso % (Auto) Lymph # (Auto) [place] # (Auto) Eos # (Auto) Baso # (Auto) Abs Immat Gran (auto) Absolute Neuts (auto) Absolute Nucleated RBC Nucleated RBC % (auto) Anion Gap 10 L Estim Creat Clear Calc 90.5 Estimated GFR > 60 Random Glucose 118 H Calcium 8.2 L D Phosphorus Magnesium Total Bilirubin Direct Bilirubin AST ALT Alkaline Phosphatase Total Creatine Kinase > 39150 H Troponin I High Sens 129.6 H* Total Protein Albumin Triglycerides Cholesterol LDL Cholesterol, Calc HDL Cholesterol COVID-19 (JAMIE) Negative COVID-19 Clin Com See Note 10/31/22 10/31/22 10/31/22 06:30 06:30 06:30 MCV 89.0 MCH 29.7 MCHC 33.3 RDW 13.6 Plt Count 166 MPV 11.4 Immature Gran % (Auto) Neut % (Auto) Lymph % (Auto) [place] % (Auto) Eos % (Auto) Baso % (Auto) Lymph # (Auto) [place] # (Auto) Eos # (Auto) Baso # (Auto) Abs Immat Gran (auto) Absolute Neuts (auto) Absolute Nucleated RBC 0.000 Nucleated RBC % (auto) 0.0 Anion Gap 10 L Estim Creat Clear Calc 127.0 Estimated GFR > 60 Random Glucose 96 Calcium 8.2 L Phosphorus Magnesium 2.8 H Total Bilirubin 0.2 Direct Bilirubin < 0.2 AST 728 H ALT 201 H Alkaline Phosphatase 60 Total Creatine Kinase 03583 H Troponin I High Sens Total Protein 5.7 L Albumin 3.6 Triglycerides 188 Cholesterol 201 LDL Cholesterol, Calc 132 HDL Cholesterol 32 COVID-19 (JAMIE) COVID-19 Clin Com Assessment and Plan (1) RONA (acute kidney injury): Status: Acute (2) Polysubstance (including opioids) dependence, daily use: Status: Acute (3) Suicidal ideation: Status: Acute (4) Rhabdomyolysis: Status: Acute Plan 31-year-old gentleman with history of PTSD, depression, dissociated identity disorder discharged from residential 2 days ago, has been using IV cocaine presented to [facility] for feeling unsafe associated with symptoms of upper extremity puffiness swelling discomfort as well as right upper quadrant discomfort associated with nausea patient diagnosed to have acute renal failure with rhabdomyolysis and elevated liver enzymes and troponin. # acute rhabdomyolysis due to IV cocaine use, patient denies history of trauma or fall, h/hct low but stable CPK trending down continue IV fluid, follow-up CPK, seen by Nephrology they agree with above treatment plan. # acute kidney injury related to pigment nephrotoxicity , renal function returned to baseline . # elevated troponin with no associated chest pain or EKG changes likely due to cocaine use will avoid beta blockers strongly recommend to abstain from cocaine use, no further workup. # IV cocaine use disorder on as needed anxiolytics, Addiction Team consult # feeling unsafe/suicidal ideation patient denies any plan , continue sitter, care team consult once medically cleared # hypermagnesemia likely due to acute kidney injury , magnesium remains elevated 2.8 follow magnesium level. # transaminitis with significantly elevated AST/alt , renal ultrasound showed no significant abnormality unremarkable gallbladder and liver and normal caliber CBD, hepatitis panel pending ?? LFTs trending down, question related to cocaine use, patient denies use of alcohol. Follow LFTs #? Tobacco use disorder counseling done placed on nicotine patch. #? PTSD/ depression and DID? continue home medications including? Seroquel and Paxil. No behavioral issues noted # ? opioid use disorder continue methadone verify dose at a.m. #? neuropathy continue gabapentin. # DVT prophylaxis with Lovenox. # code status full code. ?in my clinical judgment patient need continued inpatient stay for management of acute? renal failure related to rhabdomyolysis requiring IV fluids and close Time Spent With Patient Time: Total time managing care of this patient today ____ minutes. Quality Stroke Does the patient have a stroke diagnosis?: No VTE Prior VTE?: No VTE Risk Level:: Medical - moderate - high VTE Device Contraindication: Treatment Not Indicated VTE Drug Contraindication: N/A - Med Ordered
[2022-10-31] MEDS: 0.9 % Sodium Chloride 1,000 ML 100 ML IVCONT ×2 (11:51→22:16)
[2022-10-31] MEDS: oxyCODONE HCl Immed Release 5 MG TABLET PO ×2 (11:56→22:08)
[2022-10-31 11:58] VITALS: BP 103/69; PULSE 79; RESP 18; TEMP 36.6; O2SAT 98
[2022-10-31 15:42] VITALS: BP 112/70; PULSE 58; RESP 18; TEMP 36.2; O2SAT 99
[2022-10-31] MEDS: Enoxaparin Sodium 40 MG/0.4 ML SYRINGE SUBCUT (18:05)
[2022-10-31 20:00] VITALS: BP 124/77; PULSE 65; RESP 18; TEMP 36.8; O2SAT 99
[2022-10-31] MEDS: Melatonin 3 MG TABLET 6 MG PO (22:08)
[2022-10-31] MEDS: QUEtiapine Fumarate 100 MG TABLET PO (22:08)
[2022-10-31 23:32] VITALS: BP 103/69; PULSE 57; RESP 15; TEMP 37.1; O2SAT 95
[2022-11-01 03:55] VITALS: BP 102/66; PULSE 59; RESP 15; TEMP 36.1; O2SAT 99
[2022-11-01 04:40] LABS: HBS Num1 > 1000.00 mIU/mL (0-7.99); HBc Num1 0.08 S/CO (0.00-0.79); Hepatitis A Antibody IgM 0.22 Index (0-0.79); Hepatitis B Core Antibody Nonreactive (Nonreactive); Hepatitis B Surface Antigen Negative (Negative); ~HepC Num1 11.62 S/CO (0.00-0.79); ~Hepatitis A Antibody IgM Nonreactive (Nonreactive); ~Hepatitis B Surface Antibody REACTIVE (Nonreactive); ~Hepatitis C Antibody Reactive (Nonreactive)
[2022-11-01] MEDS: Omeprazole 20 MG CAPSULE.DR PO (05:46)
[2022-11-01 06:27] LABS: Hematocrit 32.1 % (42.0-52.0); Hemoglobin 10.4 g/dl (14.0-18.0); Mean Corpuscular HGB Conc 32.4 g/dl (31.0-36.0); Mean Corpuscular Hemoglobin 29.5 pg (27.0-33.0); Mean Corpuscular Volume 90.9 fL (80.0-98.0); Mean Platelet Volume 11.7 fL (9.4-12.4); Platelet Count 149 X10*3/uL (160-400); Red Blood Count 3.53 X10*6/uL (4.60-5.80); Red Cell Distribution Width 13.9 % (11.0-16.0)
[2022-11-01 06:48] LABS: Alanine Aminotransferase 173 U/L (0-40); Albumin Level 3.4 g/dL (3.5-5.0); Alkaline Phosphatase 63 U/L (39-117); Anion Gap 11 (12-20); Aspartate Amino Transferase 437 U/L (5-37); Bilirubin Direct < 0.2 mg/dL (0.0-0.5); Bilirubin Total 0.1 mg/dL (0.0-1.0); Blood Urea Nitrogen 16 mg/dL (9-16); Calcium 8.5 mg/dL (8.4-10.2); Carbon Dioxide 24 mmol/L (22-29); Chloride 111 mmol/L (96-108); Creatinine Clr Calc Pharmacy 160.1; Estimated Glomerular Filt Rate > 60; Glucose Random 104 mg/dL (60-115); Potassium 4.4 mmol/L (3.3-5.1); Sodium 142 mmol/L (135-145); Total Protein 5.5 g/dL (6.5-8.0)
[2022-11-01 08:00] VITALS: BP 103/60; PULSE 50; RESP 20; TEMP 36.4; O2SAT 99
[2022-11-01] MEDS: methADONE HCl 20 MG/2 ML ORAL.CONC 195 MG PO (09:20)
[2022-11-01] MEDS: 0.9 % Sodium Chloride 1,000 ML 100 ML IVCONT ×2 (09:21→20:06)
[2022-11-01] MEDS: Nicotine 14 MG PATCH.TD24 TRANSDERMA (09:22)
[2022-11-01] MEDS: PARoxetine HCL 40 MG TABLET PO (09:22)
[2022-11-01] MEDS: Gabapentin 400 MG CAPSULE 800 MG PO ×2 (09:22→20:01)
--- NOTE | 2022-11-01 10:10 | PM.PNNEP ---
Subjective Subjective Date of Service: 11/01/22 Interval history: seen and examined no complaints Physical Exam Vital Signs: Vital Signs: Last Vital Signs Temp 97.6 F 11/01/22 08:00 Pulse 50 11/01/22 08:00 Resp 20 11/01/22 08:00 BP 103/60 11/01/22 08:00 Pulse Ox 99 11/01/22 08:00 O2 Del Method Room Air 11/01/22 08:00 BMI result Body Mass Index 27.6 Const: General: comfortable, no acute distress and well developed HEENT: Head: Yes normocephalic and Yes atraumatic Neck: Neck: Yes supple Resp: Auscultation: clear to auscultation bilaterally Cardio: Heart sounds: S1 normal heart sound present and S2 normal heart sound present GI: Palpation (GI): Soft to palpation and nontender Extrem: General: No edema Objective Data Labs 11/01/22 06:19 11/01/22 06:19 Labs: Laboratory Results - last 24 hr 10/30/22 11/01/22 11/01/22 15:40 06:19 06:19 WBC 5.0 RBC 3.53 L Hgb 10.4 L Hct 32.1 L MCV 90.9 MCH 29.5 MCHC 32.4 RDW 13.9 Plt Count 149 L MPV 11.7 Absolute Nucleated RBC 0.000 Nucleated RBC % (auto) 0.0 Sodium 142 Potassium 4.4 Chloride 111 H Carbon Dioxide 24 Anion Gap 11 L BUN 16 Creatinine 0.69 Estim Creat Clear Calc 160.1 Estimated GFR > 60 Random Glucose 104 Calcium 8.5 Total Bilirubin 0.1 Direct Bilirubin < 0.2 AST 437 H ALT 173 H Alkaline Phosphatase 63 Total Creatine Kinase 56608 H Total Protein 5.5 L Albumin 3.4 L Hepatitis A IgM Ab Nonreactive Hep Bs Antigen Negative Hep Bs Antibody REACTIVE Hep B Core Total Ab Nonreactive Hepatitis C Ab (EIA) Reactive H Procedures Date of Service Date of Service: 11/01/22 Assessment & Plan Assessment and plan (1) RONA (acute kidney injury): Status: Acute (2) Rhabdomyolysis: Status: Acute Plan kidney function normalized multifactorial RONA; -heme pigment nephrotoxicity -renal hypoperfusion REC c/w IVF 0.9% 100 cc/hr no need for urine alkalinization follow cpk follow kidney function and electrolytes Time Spent With Patient Time: Total time managing care of this patient today ____ minutes. Progress Note: Quality Stroke Does the patient have a stroke diagnosis?: No
--- NOTE | 2022-11-01 10:42 | MHC.RECOVRN ---
Met with pt in 486 after consult placed to Addiction Medicine for cocaine use. Pt admitted to [facility] for RONA/rhabdo/SI. Pt laying in bed, asleep, easily wakes to voice. Pt easily engages in conversation. Pt reports having been released from [facility] 2 days ago after having been there x 5 months. Shortly upon release, pt reports using cocaine, IV, $600 over the course of 2 days. Denies other substances. Pt reports currently on methadone, 195 mg daily through [facility] x 6 months, which has been helpful. Pt reports prior to methadone initiation using 5 bundles heroin daily as well as 2 grams cocaine daily, IV. Pt reports recent time in recovery x 5 years, states I was raising my daughter. 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 Pt does not identify other recovery supports throughout period in recovery. Pt reports hx of over 30 overdoses. Discussed likelihood of fentanyl in cocaine, educated regarding risk of overdose especially after period in recovery. Pt verbalizes understanding. Plan for pt to be evaluated by CARE Team upon medical clearance as pt expressed SI. Pt provided with written recovery resources including information on [facility] facilities. Pt reports being familiar with different levels of care, has been to [facility] and [facility] in the past. Pt denies questions or concerns at this time. T/w available as needed. Discussed with Kailey Bailey APRN.
--- NOTE | 2022-11-01 10:53 | P.PNIM_ITS ---
Subjective Subjective Date of Service: 11/01/22 Interval History: Being followed for acute rhabdomyolysis, cocaine use disorder suicidal ideation, patient is resting comfortably tolerating diet, offers no acute complaints, denies nausea, no vomiting, no abdominal pain, no diarrhea, no urinary symptoms, denies upper extremity discomfort, no fevers, no chills. Review of Systems Review of Systems: Yes all other systems are reviewed and are negative Physical Exam Vital Signs: Vital Signs: Last Vital Signs Temp 97.6 F 11/01/22 08:00 Pulse 50 11/01/22 08:00 Resp 20 11/01/22 08:00 BP 103/60 11/01/22 08:00 Pulse Ox 99 11/01/22 08:00 O2 Del Method Room Air 11/01/22 08:00 BMI result Body Mass Index 27.6 Const: Other: General? awake alert x3, resting comfortably in no acute distress. Neck supple no JVD. CVS? regular rate rhythm, Respiratory lungs clear to auscultation, no respiratory distress, no wheeze, no rhonchi. Gastrointestinal abdomen soft,?nontender, no distension,bowel sounds audible, no guarding , no rigidity. Extremities no edema. Both upper extremities no swelling, no discoloration, no redness, no evidence of compartment syndrome. Neuro nonfocal ,speech clear. Skin? no rash psych appropriate affect Objective Data Active Medications Docusate Sodium (Docusate Sodium 100 Mg Capsule) 100 mg PO BEDTIME PRN PRN Reason: Constipation Enoxaparin Sodium (Enoxaparin Sodium 40 Mg/0.4 Ml Syringe) 40 mg SUBCUT Q24H [facility] Last Admin: 10/31/22 18:05 Dose: 40 mg Documented By: DURGA Gabapentin (Gabapentin 400 Mg Capsule) 800 mg PO BID [facility] Last Admin: 11/01/22 09:22 Dose: 800 mg Documented By: DURGA Sodium Chloride (Ns) 1,000 mls @ 100 mls/hr IVCONT .Q10H [facility] Last Admin: 11/01/22 09:21 Dose: 100 mls/hr Documented By: DURGA Melatonin (Melatonin 3 Mg Tablet) 6 mg PO BEDTIME PRN PRN Reason: Insomnia Last Admin: 10/31/22 22:08 Dose: 6 mg Documented By: BHARATH Methadone HCl (Methadone Hcl 20 Mg/2 Ml Oral.Conc) 195 mg PO DAILY [facility] Last Admin: 11/01/22 09:20 Dose: 195 mg Documented By: DURGA Nicotine (Nicotine 14 Mg Patch.Td24) 14 mg TRANSDERMA DAILY [facility] Last Admin: 11/01/22 09:22 Dose: 14 mg Documented By: DURGA Omeprazole (Omeprazole 20 Mg Capsule.Dr) 20 mg PO DAILY@0630 [facility] Last Admin: 11/01/22 05:46 Dose: 20 mg Documented By: BHARATH Ondansetron HCl (Ondansetron Hcl 4 Mg/2 Ml Vial) 4 mg IVPUSH Q8H PRN PRN Reason: Nausea and Vomiting Last Admin: 10/30/22 20:31 Dose: 4 mg Documented By: LUIS Comments: med did not save during scan Oxycodone HCl (Oxycodone Hcl Immed Release 5 Mg Tablet) 5 mg PO Q6H PRN PRN Reason: Pain, Severe (Pain Scale 7-10) Last Admin: 10/31/22 22:08 Dose: 5 mg Documented By: BHARATH Paroxetine HCl (Paroxetine Hcl 40 Mg Tablet) 40 mg PO DAILY [facility] Last Admin: 11/01/22 09:22 Dose: 40 mg Documented By: DURGA Pharmacy Consult (Consult Rx Perform Med Rec) 1 each MISCELLANE ONCE PRN PRN Reason: Consult order Prazosin HCl (Prazosin Hcl 1 Mg Capsule) 4 mg PO BEDTIME [facility]; Protocol Last Admin: 11/01/22 01:16 Dose: Not Given Documented By: BHARATH Non-Admin Reason: Patient Asleep Quetiapine Fumarate (Quetiapine Fumarate 100 Mg Tablet) 100 mg PO BEDTIME [facility] Last Admin: 10/31/22 22:08 Dose: 100 mg Documented By: BHARATH Sodium Chloride (0.9 % Sodium Chloride Flush 3 Ml Syringe) 3 ml IVFLUSH QSHIFT [facility] Last Admin: 11/01/22 09:23 Dose: Not Given Documented By: DURGA Non-Admin Reason: IV Running Labs 11/01/22 06:19 11/01/22 06:19 Labs: Laboratory Results - last 24 hr 10/30/22 11/01/22 11/01/22 15:40 06:19 06:19 MCV 90.9 MCH 29.5 MCHC 32.4 RDW 13.9 Plt Count 149 L MPV 11.7 Absolute Nucleated RBC 0.000 Nucleated RBC % (auto) 0.0 Anion Gap 11 L Estim Creat Clear Calc 160.1 Estimated GFR > 60 Random Glucose 104 Calcium 8.5 Total Bilirubin 0.1 Direct Bilirubin < 0.2 AST 437 H ALT 173 H Alkaline Phosphatase 63 Total Creatine Kinase 09951 H Total Protein 5.5 L Albumin 3.4 L Hepatitis A IgM Ab Nonreactive Hep Bs Antigen Negative Hep Bs Antibody REACTIVE Hep B Core Total Ab Nonreactive Hepatitis C Ab (EIA) Reactive H Assessment and Plan (1) RONA (acute kidney injury): Status: Acute (2) Polysubstance (including opioids) dependence, daily use: Status: Acute (3) Suicidal ideation: Status: Acute (4) Rhabdomyolysis: Status: Acute Plan 31-year-old gentleman with history of PTSD, depression, dissociated identity disorder discharged from residential 2 days ago, has been using IV cocaine presented to [facility] for feeling unsafe associated with symptoms of upper extremity puffiness swelling discomfort as well as right upper quadrant discomfort associated with nausea patient diagnosed to have acute renal failure with rhabdomyolysis and elevated liver enzymes and troponin. # acute rhabdomyolysis due to IV cocaine use, patient denies history of trauma or fall, h/hct low but stable CPK trending down continue IV fluid, CPK trending down >[id number] [place] [address] [place] [address] today, seen by Nephrology they agree with above treatment plan follow BMP and CPK. # acute kidney injury related to pigment nephrotoxicity , resolved . # elevated troponin with no associated chest pain or EKG changes likely due to cocaine use will avoid beta blockers strongly recommend to abstain from cocaine use, no further workup. # IV cocaine use disorder on as needed anxiolytics, Addiction Team consult # feeling unsafe/suicidal ideation patient denies any plan , continue sitter, care team consult once medically cleared. # hypermagnesemia likely due to acute kidney injury , magnesium remains elevated 2.8 follow magnesium level. # transaminitis with significantly elevated AST/alt , abd.ultrasound showed no significant abnormality unremarkable gallbladder and liver and normal caliber CBD, hepatitis panel pos for Hep C ab ?? LFTs trending down, question related to cocaine use, and hep C recommend outpatient GI follow-up #? Tobacco use disorder counseling , on nicotine patch. #? PTSD/ depression and DID? continue home medications including? Seroquel and Paxil. No behavioral issues noted # ? opioid use disorder continue methadone #? neuropathy continue gabapentin. # DVT prophylaxis with Lovenox. # code status full code. ?in my clinical judgment patient need continued inpatient stay for management of acute? renal failure related to rhabdomyolysis requiring IV fluids and close follow-up of renal function and electrolytes. Time Spent With Patient Time: Total time managing care of this patient today ____ minutes. Quality Stroke Does the patient have a stroke diagnosis?: No VTE Prior VTE?: No VTE Risk Level:: Medical - moderate - high VTE Device Contraindication: Treatment Not Indicated VTE Drug Contraindication: N/A - Med Ordered
--- NOTE | 2022-11-01 11:32 | MHC.CM.PN ---
EMR REVIEWED, PT W/RHABDO AND IVDU, PT'S CPK TRENDING DOWN, NO PLAN FOR D/C AT THIS TIME, CM WILL CONT TO FOLLOW D/C NEEDS.
[2022-11-01 12:00] VITALS: BP 123/75; PULSE 61; RESP 20; TEMP 36.8; O2SAT 98
[2022-11-01 15:48] VITALS: BP 125/79; PULSE 56; RESP 14; TEMP 36.6; O2SAT 98
[2022-11-01] MEDS: Enoxaparin Sodium 40 MG/0.4 ML SYRINGE SUBCUT (17:16)
[2022-11-01 19:30] VITALS: BP 135/82; PULSE 59; RESP 18; TEMP 36.9; O2SAT 97
[2022-11-01] MEDS: Prazosin HCL 1 MG CAPSULE 4 MG PO (20:00)
[2022-11-01] MEDS: QUEtiapine Fumarate 100 MG TABLET PO (20:01)
[2022-11-01] MEDS: Melatonin 3 MG TABLET 6 MG PO (20:04)
[2022-11-01 23:20] VITALS: BP 121/78; PULSE 60; RESP 16; TEMP 36.3; O2SAT 99
[2022-11-02 04:00] VITALS: BP 110/72; PULSE 55; RESP 18; TEMP 37; O2SAT 96
[2022-11-02] MEDS: Omeprazole 20 MG CAPSULE.DR PO (05:56)
[2022-11-02] MEDS: 0.9 % Sodium Chloride 1,000 ML 100 ML IVCONT (05:56)
--- NOTE | 2022-11-02 07:05 | PM.PNNEP ---
Subjective Subjective Date of Service: 11/02/22 Interval history: seen and examined no complaints Physical Exam Vital Signs: Vital Signs: Last Vital Signs Temp 98.6 F 11/02/22 04:00 Pulse 55 11/02/22 04:00 Resp 18 11/02/22 04:00 BP 110/72 11/02/22 04:00 Pulse Ox 96 11/02/22 04:00 O2 Del Method Room Air 11/02/22 04:00 BMI result Body Mass Index 27.6 Const: General: comfortable, no acute distress and well developed HEENT: Head: Yes normocephalic and Yes atraumatic Neck: Neck: Yes supple Resp: Auscultation: clear to auscultation bilaterally Cardio: Heart sounds: S1 normal heart sound present and S2 normal heart sound present GI: Palpation (GI): Soft to palpation and nontender Extrem: General: No edema Objective Data Labs 11/01/22 06:19 11/01/22 06:19 Procedures Date of Service Date of Service: 11/02/22 Assessment & Plan Assessment and plan (1) RONA (acute kidney injury): Status: Acute (2) Rhabdomyolysis: Status: Acute Plan kidney function normal multifactorial RONA (resolved): -heme pigment nephrotoxicity -renal hypoperfusion REC c/w IVF 0.9% 100 cc/hr as long as cpk elevated follow cpk follow kidney function and electrolytes Time Spent With Patient Time: Total time managing care of this patient today ____ minutes. Progress Note: Quality Stroke Does the patient have a stroke diagnosis?: No
[2022-11-02 07:19] LABS: Anion Gap 10 (12-20); Blood Urea Nitrogen 14 mg/dL (9-16); Calcium 8.7 mg/dL (8.4-10.2); Carbon Dioxide 27 mmol/L (22-29); Chloride 109 mmol/L (96-108); Creatinine Clr Calc Pharmacy 147.3; Estimated Glomerular Filt Rate > 60; Glucose Random 100 mg/dL (60-115); Magnesium 1.8 mg/dL (1.6-2.6); Potassium 4.3 mmol/L (3.3-5.1); Sodium 142 mmol/L (135-145)
[2022-11-02 07:24] VITALS: BP 114/67; PULSE 53; RESP 20; TEMP 36.6; O2SAT 96
[2022-11-02 08:13] LABS: Amphetamine Screen Urine Not Detected (Not Detect); Barbiturates, Urine Not Detected (Not Detect); Benzodiazepines Screen Urine Not Detected (Not Detect); Cannabinoid Screen Urine POSITIVE (Not Detect); Cocaine Screen Urine POSITIVE (Not Detect); Fentanyl, urine POSITIVE (Not Detect); Opiate Screen Urine POSITIVE (Not Detect); Phencyclidine Screen Urine Not Detected (Not Detect)
[2022-11-02 08:25] LABS: Appearance Urine Clear; Color Urine Yellow; Glucose Urine UA Negative (Negative); Leukocyte Esterase Urine Negative (Negative); Nitrite Urine Negative (Negative); PH 6.5 (5.0-9.0); Urine Blood Negative (Negative); Urine Ketones Negative (Negative); Urine Protein Trace mg/dL (Neg-Trace)
[2022-11-02] MEDS: methADONE HCl 20 MG/2 ML ORAL.CONC 195 MG PO (09:00)
[2022-11-02] MEDS: Nicotine 14 MG PATCH.TD24 TRANSDERMA (09:01)
[2022-11-02] MEDS: Gabapentin 400 MG CAPSULE 800 MG PO ×2 (09:01→20:31)
[2022-11-02] MEDS: PARoxetine HCL 40 MG TABLET PO (09:01)
--- NOTE | 2022-11-02 10:58 | P.PNIM_ITS ---
Subjective Subjective Date of Service: 11/02/22 Interval History: Being followed for a RONA and rhabdomyolysis. Patient is sitting comfortably on bed offers no acute complaints, bilateral upper extremity swelling and discomfort resolved, denies nausea, no vomiting , No abdominal pain, denies thoughts of self-harm. Review of Systems Review of Systems: Yes all other systems are reviewed and are negative Physical Exam Vital Signs: Vital Signs: Last Vital Signs Temp 97.8 F 11/02/22 07:24 Pulse 53 11/02/22 07:24 Resp 20 11/02/22 07:24 BP 114/67 11/02/22 07:24 Pulse Ox 96 11/02/22 07:24 O2 Del Method Room Air 11/02/22 07:24 BMI result Body Mass Index 27.6 Const: Other: General? awake marcie rt x3, resting com fortably in no acu te distress. Neck supple no JVD. CVS ? regular rate rhy thm, Respiratory l ungs clear to ausc ultation, no respi ratory distress, n o wheeze, no rhonc hi. Gastrointestin al abdomen soft,?n on tender, no dist ension,bowel sound s audible, no guar ding , no rigidity . Extremities no e erick. Both upper e xtremities no swel ling, no discolora tion, no redness, no evidence of com partment syndrome. Neuro non focal , speech clear. Skin ? no rash psych ap propriate affect Objective Data Active Medications Docusate Sodium (Docusate Sodium 100 Mg Capsule) 100 mg PO BEDTIME PRN PRN Reason: Constipation Enoxaparin Sodium (Enoxaparin Sodium 40 Mg/0.4 Ml Syringe) 40 mg SUBCUT Q24H [facility] Last Admin: 11/01/22 17:16 Dose: 40 mg Documented By: CTORRZ Gabapentin (Gabapentin 400 Mg Capsule) 800 mg PO BID [facility] Last Admin: 11/02/22 09:01 Dose: 800 mg Documented By: MICHITEKNathaly Sodium Chloride (Ns) 1,000 mls @ 125 mls/hr IVCONT .Q8H [facility] Last Infusion: 11/02/22 10:42 Dose: 125 mls/hr Documented By: MICHITEKNathaly Melatonin (Melatonin 3 Mg Tablet) 6 mg PO BEDTIME PRN PRN Reason: Insomnia Last Admin: 11/01/22 20:04 Dose: 6 mg Documented By: DURGA Methadone HCl (Methadone Hcl 20 Mg/2 Ml Oral.Conc) 195 mg PO DAILY [facility] Last Admin: 11/02/22 09:00 Dose: 195 mg Documented By: FERNANDO Nicotine (Nicotine 14 Mg Patch.Td24) 14 mg TRANSDERMA DAILY [facility] Last Admin: 11/02/22 09:01 Dose: 14 mg Documented By: FERNANDO Omeprazole (Omeprazole 20 Mg Capsule.Dr) 20 mg PO DAILY@0630 [facility] Last Admin: 11/02/22 05:56 Dose: 20 mg Documented By: LAURA Ondansetron HCl (Ondansetron Hcl 4 Mg/2 Ml Vial) 4 mg IVPUSH Q8H PRN PRN Reason: Nausea and Vomiting Last Admin: 10/30/22 20:31 Dose: 4 mg Documented By: LUIS Comments: med did not save during scan Oxycodone HCl (Oxycodone Hcl Immed Release 5 Mg Tablet) 5 mg PO Q6H PRN PRN Reason: Pain, Severe (Pain Scale 7-10) Last Admin: 10/31/22 22:08 Dose: 5 mg Documented By: BHARATH Paroxetine HCl (Paroxetine Hcl 40 Mg Tablet) 40 mg PO DAILY [facility] Last Admin: 11/02/22 09:01 Dose: 40 mg Documented By: FERNANDO Pharmacy Consult (Consult Rx Perform Med Rec) 1 each MISCELLANE ONCE PRN PRN Reason: Consult order Prazosin HCl (Prazosin Hcl 1 Mg Capsule) 4 mg PO BEDTIME [facility]; Protocol Last Admin: 11/01/22 20:00 Dose: 4 mg Documented By: DURGA Quetiapine Fumarate (Quetiapine Fumarate 100 Mg Tablet) 100 mg PO BEDTIME [facility] Last Admin: 11/01/22 20:01 Dose: 100 mg Documented By: DURGA Sodium Chloride (0.9 % Sodium Chloride Flush 3 Ml Syringe) 3 ml IVFLUSH QSHIFT [facility] Last Admin: 11/02/22 09:08 Dose: Not Given Documented By: FERNANDO Non-Admin Reason: IV Running Labs 11/01/22 06:19 11/02/22 05:57 Labs: Laboratory Results - last 24 hr 11/02/22 11/02/22 11/02/22 05:57 07:50 07:50 Anion Gap 10 L Estim Creat Clear Calc 147.3 Estimated GFR > 60 Random Glucose 100 Calcium 8.7 Magnesium 1.8 Total Creatine Kinase 8664 H Urine Color Yellow Urine Appearance Clear Urine pH 6.5 Ur Specific [place] 1.020 Urine Protein Trace Urine Glucose (UA) Negative Urine Ketones Negative Urine Blood Negative Urine Nitrite Negative Ur Leukocyte Esterase Negative Urine Opiates Screen POSITIVE H Urine Fentanyl Screen POSITIVE H Ur Barbiturates Screen Not Detected Ur Phencyclidine Scrn Not Detected Ur Amphetamines Screen Not Detected U Benzodiazepines Scrn Not Detected Urine Cocaine Screen POSITIVE H U Marijuana (THC) Screen POSITIVE H Assessment and Plan (1) RONA (acute kidney injury): Status: Acute (2) Polysubstance (including opioids) dependence, daily use: Status: Acute (3) Suicidal ideation: Status: Acute (4) Rhabdomyolysis: Status: Acute Plan 31-year-old gentleman with history of PTSD, depression, dissociated identity disorder discharged [facility] [place], has been using IV cocaine presented to [facility] for feeling unsafe associated with symptoms of upper extremity puffiness swelling discomfort as well as right upper quadrant discomfort associated with nausea patient diagnosed to have acute renal failure with rhabdomyolysis and elevated liver enzymes and troponin. # acute rhabdomyolysis due to IV cocaine use, no history of trauma or fall, h/hct low but stable CPK trending down continue IV fluid, CPK trending down >9[address] [place] [address] [place] [address] to 8664 today, seen by Nephrology they agree with above treatment plan follow BMP and CPK. # acute kidney injury related to pigment nephrotoxicity , resolved . # elevated troponin with no associated chest pain or EKG changes likely due to cocaine ,recommend to abstain from cocaine use, no further workup. # IV cocaine use disorder on as needed anxiolytics, seen by Addiction Team. # feeling unsafe/suicidal ideation patient denies any plan , denies thoughts of self-harm will consult care team. # hypermagnesemia likely due to acute kidney injury , magnesium return to normal range # transaminitis with significantly elevated AST/alt , abd.ultrasound showed no significant abnormality unremarkable gallbladder and liver and normal caliber CBD, hepatitis panel pos for Hep C ab ?? LFTs trending down, question related to cocaine use, and hep C recommend outpatient GI follow-up. #? Tobacco use disorder counseling , continue nicotine patch. #? PTSD/ depression and DID? continue home medications including? Seroquel and Paxil. No behavioral issues noted # ? opioid use disorder continue methadone #? neuropathy continue gabapentin. # DVT prophylaxis with Lovenox. # code status full code. ?in my clinical judgment patient need continued inpatient stay for management for rhabdomyolysis requiring IV fluids and close follow-up of renal function and electrolytes. Time Spent With Patient Time: Total time managing care of this patient today ____ minutes. Quality Stroke Does the patient have a stroke diagnosis?: No VTE Prior VTE?: No VTE Risk Level:: Medical - moderate - high VTE Device Contraindication: Treatment Not Indicated VTE Drug Contraindication: N/A - Med Ordered
[2022-11-02 11:19] VITALS: BP 122/75; PULSE 64; RESP 20; TEMP 36.4; O2SAT 95
[2022-11-02] MEDS: 0.9 % Sodium Chloride 1,000 ML 125 ML IVCONT ×2 (15:04→23:14)
[2022-11-02 15:19] VITALS: BP 128/75; PULSE 65; RESP 18; TEMP 37; O2SAT 98
[2022-11-02] MEDS: Enoxaparin Sodium 40 MG/0.4 ML SYRINGE SUBCUT (18:22)
[2022-11-02 19:49] VITALS: BP 147/87; PULSE 52; RESP 18; TEMP 37; O2SAT 98
[2022-11-02] MEDS: QUEtiapine Fumarate 100 MG TABLET PO (20:31)
[2022-11-02] MEDS: Melatonin 3 MG TABLET 6 MG PO (20:31)
[2022-11-02] MEDS: Prazosin HCL 1 MG CAPSULE 4 MG PO (20:31)
[2022-11-02 23:14] VITALS: BP 124/77; PULSE 54; RESP 16; TEMP 36.5; O2SAT 98
[2022-11-03 04:00] VITALS: BP 107/57; PULSE 50; RESP 18; TEMP 36.8; O2SAT 98
[2022-11-03] MEDS: Omeprazole 20 MG CAPSULE.DR PO (05:46)
[2022-11-03] MEDS: 0.9 % Sodium Chloride 1,000 ML 125 ML IVCONT (05:47)
[2022-11-03 06:31] LABS: Hematocrit 31.4 % (42.0-52.0); Hemoglobin 10.4 g/dl (14.0-18.0); Mean Corpuscular HGB Conc 33.1 g/dl (31.0-36.0); Mean Corpuscular Hemoglobin 29.3 pg (27.0-33.0); Mean Corpuscular Volume 88.5 fL (80.0-98.0); Mean Platelet Volume 10.5 fL (9.4-12.4); Platelet Count 214 X10*3/uL (160-400); Red Blood Count 3.55 X10*6/uL (4.60-5.80); Red Cell Distribution Width 13.4 % (11.0-16.0); White Blood Count 6.2 X10*3/uL (4.8-10.8)
[2022-11-03 06:55] LABS: Alanine Aminotransferase 118 U/L (0-40); Albumin Level 3.3 g/dL (3.5-5.0); Alkaline Phosphatase 48 U/L (39-117); Aspartate Amino Transferase 152 U/L (5-37); Bilirubin Direct < 0.2 mg/dL (0.0-0.5); Bilirubin Total 0.2 mg/dL (0.0-1.0); Total Protein 5.4 g/dL (6.5-8.0)
[2022-11-03 07:41] VITALS: BP 103/57; PULSE 61; RESP 20; TEMP 37.1; O2SAT 97
[2022-11-03] MEDS: Nicotine 14 MG PATCH.TD24 TRANSDERMA (09:06)
[2022-11-03] MEDS: methADONE HCl 20 MG/2 ML ORAL.CONC 195 MG PO (09:08)
[2022-11-03] MEDS: PARoxetine HCL 40 MG TABLET PO (09:08)
[2022-11-03] MEDS: Gabapentin 400 MG CAPSULE 800 MG PO ×2 (09:09→20:51)
--- NOTE | 2022-11-03 09:52 | PM.PNNEP ---
Subjective Subjective Date of Service: 11/03/22 Interval history: seen and examined no complaints Physical Exam Vital Signs: Vital Signs: Last Vital Signs Temp 98.7 F 11/03/22 07:41 Pulse 61 11/03/22 07:41 Resp 20 11/03/22 07:41 BP 103/57 L 11/03/22 07:41 Pulse Ox 97 11/03/22 07:41 O2 Del Method Room Air 11/03/22 07:41 BMI result Body Mass Index 27.6 Const: General: comfortable, no acute distress and well developed HEENT: Head: Yes normocephalic and Yes atraumatic Neck: Neck: Yes supple Resp: Auscultation: clear to auscultation bilaterally Cardio: Heart sounds: S1 normal heart sound present and S2 normal heart sound present GI: Palpation (GI): Soft to palpation and nontender Extrem: General: No edema Objective Data Labs 11/03/22 06:14 11/02/22 05:57 Labs: Laboratory Results - last 24 hr 11/03/22 11/03/22 06:14 06:14 WBC 6.2 RBC 3.55 L Hgb 10.4 L Hct 31.4 L MCV 88.5 MCH 29.3 MCHC 33.1 RDW 13.4 Plt Count 214 D MPV 10.5 Absolute Nucleated RBC 0.000 Nucleated RBC % (auto) 0.0 Total Bilirubin 0.2 Direct Bilirubin < 0.2 AST 152 H ALT 118 H Alkaline Phosphatase 48 Total Creatine Kinase 3913 H Total Protein 5.4 L Albumin 3.3 L Procedures Date of Service Date of Service: 11/03/22 Assessment & Plan Assessment and plan (1) RONA (acute kidney injury): Status: Acute (2) Rhabdomyolysis: Status: Acute Plan kidney function normal multifactorial RONA (resolved): -heme pigment nephrotoxicity -renal hypoperfusion REC can soon dc IVF when cpk < 1000 follow cpk follow kidney function and electrolytes Time Spent With Patient Time: Total time managing care of this patient today ____ minutes. Progress Note: Quality Stroke Does the patient have a stroke diagnosis?: No
[2022-11-03 11:39] VITALS: BP 124/75; PULSE 80; RESP 20; TEMP 36.6; O2SAT 98
[2022-11-03 15:14] VITALS: BP 123/80; PULSE 58; RESP 20; TEMP 36.3; O2SAT 97
--- NOTE | 2022-11-03 15:46 | PM.DS ---
DS: Providers Provider Date of Service: 11/03/22 Date of admission: 10/30/22 17:19 Primary care physician: None Physician Consults: 10/30/22 12:58 Consult to Care Team Stat Comment: Reason for consultation: SI 10/30/22 17:26 Addiction Medicine Routine Consulting Provider: Addiction Covering Reason for consultation: cocaine use disorder Has provider been notified: No Consult for Sitter Routine Reason for consultation: SI Has provider been notified: No 10/30/22 18:17 Consult to Nephrology Routine Consulting Provider: Kenny Casey Reason for consultation: /rhabdo Has provider been notified: No 11/02/22 11:05 Consult to Care Team Routine Comment: Reason for consultation: pt denies suicidl ideation today please check for need of sitter 11/03/22 07:53 Consult to Care Team Stat Comment: Reason for consultation: medically clear for suicidal ideation DS: Diagnosis Discharge Diagnosis (1) RONA (acute kidney injury): Status: Acute (2) Rhabdomyolysis: Status: Acute DS: Summary Hospital Course Hospital Course: History of presenting illness: Date of Service: 10/30/22 Attending physician on admission: Christin Cain Chief Complaint:? feeling unsafe/ bilateral arm swelling ?31-year-old gentleman with past medical history significant for PTSD, depression, dissociated identity disorder on multiple psychiatric medication also history of IV drug use discharged from alf 2 days ago, was injecting IV cocaine to both antecubital fossa this morning noted puffiness and discomfort both upper extremities associated with nausea and left upper quadrant abdominal discomfort and felt unsafe therefore came to the emergency room he also complained of associated headache, lightheadedness, and dizziness , denied associated fever, chills, no chest pain, no shortness of breath, no back pain, no urinary symptoms of urgency, no frequency, denies trauma or falls, work[place] [address], AST 1286, ALT 262, magnesium 2.9, creatinine 1.78, BUN 60, troponin 154.8, repeat troponin 129.6, EKG showed no acute ischemia, vitals stable patient treated in the emergency room with IV fluid and now being admitted to [facility] with diagnosis of acute renal failure, rhabdomyolysis and elevated troponin likely due to cocaine use and also for suicidal ideation. Hospital course: 31-year-old gentleman with history of PTSD, depression, dissociated identity disorder discharged from alf 2 days ago, has been using IV cocaine presented to [facility] for feeling unsafe associated with symptoms of upper extremity puffiness swelling discomfort as well as right upper quadrant discomfort associated with nausea patient diagnosed to have acute renal failure with rhabdomyolysis and elevated liver enzymes and troponin. # acute rhabdomyolysis due to IV cocaine use, with no history of trauma or fall, patient admitted to medical floor treated with IV fluid,? [place] [address]209 to 57077 to 59794 to 3913 today, seen by Nephrology they agreed with treatment plan, IV fluid discontinued patient is tolerating by mouth. # acute kidney injury related to pigment nephrotoxicity , resolved . # elevated troponin with no associated chest pain or EKG changes likely due to cocaine ,recommend to abstain from cocaine use, no further workup required. # IV cocaine use disorder seen by Addiction Team patient received teachings regarding risk of overdose , recovery resources provided to patient. # feeling unsafe/suicidal ideation seen by care team patient denied acute suicidal ideation but felt depressed and hopeless and agreed for voluntary inpatient psych admission. # hypermagnesemia likely due to acute kidney injury , magnesium return to normal range # transaminitis with significantly elevated AST/alt , abd.ultrasound showed no significant abnormality unremarkable gallbladder and liver and normal caliber CBD, hepatitis panel pos for Hep C ab,? LFTs trending down, question related to cocaine use, and hep C ,recommend outpatient GI follow-up. #? Tobacco use disorder counseling , continue nicotine patch. #? PTSD/ depression and DID? continue home medications including? Seroquel and Paxil.? No behavioral issues noted # ? opioid use disorder continue methadone. #? neuropathy continue gabapentin. Time Spent with Patient Time attestation: Total time managing care of this patient today ____ minutes. Discharge coordination time: Greater than 30 minutes Quality: Safe Use of Opioids Does Pt have an Active Cancer Diagnosis on the Problem List?: No Quality: Stroke Does the patient have a stroke diagnosis?: No Physical Exam Vital Signs: Vital Signs: Last Vital Signs Temp 97.3 F 11/03/22 15:14 Pulse 58 11/03/22 15:14 Resp 20 11/03/22 15:14 BP 123/80 11/03/22 15:14 Pulse Ox 97 11/03/22 15:14 O2 Del Method Room Air 11/03/22 15:14 BMI result Body Mass Index 27.6 Const: Other: General? awake alert x3, resting comfortably in no acute distress. Neck supple no JVD. CVS? regular rate rhythm, Respiratory lungs clear to auscultation, no respiratory distress, no wheeze, no rhonchi. Gastrointestinal abdomen soft,?nontender, no distension,bowel sounds audible, no guarding , no rigidity. Extremities no edema. Both upper extremities no swelling, no discoloration, no redness, no evidence of compartment syndrome. Neuro nonfocal ,speech clear. Skin? no rash psych appropriate affect DS: Data Data Completed and Pending Labs on day of discharge: Laboratory Results - last 24 hr 11/03/22 11/03/22 06:14 06:14 WBC 6.2 RBC 3.55 L Hgb 10.4 L Hct 31.4 L MCV 88.5 MCH 29.3 MCHC 33.1 RDW 13.4 Plt Count 214 D MPV 10.5 Absolute Nucleated RBC 0.000 Nucleated RBC % (auto) 0.0 Total Bilirubin 0.2 Direct Bilirubin < 0.2 AST 152 H ALT 118 H Alkaline Phosphatase 48 Total Creatine Kinase 3913 H Total Protein 5.4 L Albumin 3.3 L Discharge Plan Discharge Patient Disposition: Xfer Psychiatric Hosp Discharge Diagnosis: Rhabdomyolysis Acute kidney injury Cocaine use disorder Referrals: Physician,None [Primary Care Provider] - 1 Week Discharge Medications: Continued methadone 10 mg/mL Concentrate 195 mg PO DAILY prazosin 2 mg Capsule 4 mg PO BEDTIME Rx Instructions: Take two tabs by mouth at bedtime paroxetine HCl [Paxil] 40 mg Tablet 40 mg PO DAILY Rx Instructions: TOTAL OF 50MG DAILY gabapentin 400 mg Tablet 800 mg PO BID quetiapine [Seroquel] 100 mg Tablet 100 mg PO BEDTIME docusate sodium 100 mg Capsule 100 mg PO BEDTIME PRN (Reason: Constipation) Discontinued paroxetine HCl 10 mg tablet 10 mg PO DAILY Rx Instructions: TOTAL OF 50MG Discharge Orders: Discharge Order (Routine); Ordered 11/03/22 Ordered By: Pan Barcenas Activity on Discharge: As tolerated Stand Alone Forms: Patient Portal Discharge page Discharge Date/Time: 11/03/22 22:27
--- NOTE | 2022-11-03 15:49 | MHC.CM.PN ---
EMR REVIEWED, PT W/RHABDO FROM IV COCAINE USE ETC, PER NEPHROLOGY PT TO REMAIN ON IV FLUIDS UNTIL CPK LESS THAN 1000, CPK CURRENTLY GREATER THAN 3000, NO PLAN FOR D/C AT THIS TIME, CM WILL CONT TO FOLLOW D/C NEEDS.
--- NOTE | 2022-11-03 15:59 | P.PNIM_ITS ---
Subjective Subjective Date of Service: 11/03/22 Interval History: Being followed for suicidal ideation, RONA and rhabdomyolysis patient sitting comfortably on bed offers no acute complaints of pain, tolerating diet no nausea no vomiting no abdominal pain no other acute issues overnight. Review of Systems General no headache , a no dizziness no fever chills. CVS no chest pain, no palpitation. Respiratory no cough, no sob Gastrointestinal no nausea, no vomiting, no abdominal pain Physical Exam Vital Signs: Vital Signs: Last Vital Signs Temp 97.3 F 11/03/22 15:14 Pulse 58 11/03/22 15:14 Resp 20 11/03/22 15:14 BP 123/80 11/03/22 15:14 Pulse Ox 97 11/03/22 15:14 O2 Del Method Room Air 11/03/22 15:14 BMI result Body Mass Index 27.6 Const: Other: General? awake alert x3, resting comfortably in no acute distress. Neck supple no JVD. CVS? regular rate rhythm, Respiratory lungs clear to auscultation, no respiratory distress, no wheeze, no rhonchi. Gastrointestinal abdomen soft,?nontender, no distension,bowel sounds audible, no guarding , no rigidity. Extremities no edema. Both upper extremities no swelling, no discoloration, no redness, no evidence of compartment syndrome. Neuro nonfocal ,speech clear. Skin? no rash psych appropriate affect Objective Data Active Medications Docusate Sodium (Docusate Sodium 100 Mg Capsule) 100 mg PO BEDTIME PRN PRN Reason: Constipation Enoxaparin Sodium (Enoxaparin Sodium 40 Mg/0.4 Ml Syringe) 40 mg SUBCUT Q24H [facility] Last Admin: 11/02/22 18:22 Dose: 40 mg Documented By: FERNANDO Gabapentin (Gabapentin 400 Mg Capsule) 800 mg PO BID [facility] Last Admin: 11/03/22 09:09 Dose: 800 mg Documented By: FERNANDO Melatonin (Melatonin 3 Mg Tablet) 6 mg PO BEDTIME PRN PRN Reason: Insomnia Last Admin: 11/02/22 20:31 Dose: 6 mg Documented By: CHESTERORRKaylie Methadone HCl (Methadone Hcl 20 Mg/2 Ml Oral.Conc) 195 mg PO DAILY [facility] Last Admin: 11/03/22 09:08 Dose: 195 mg Documented By: FERNANDO Nicotine (Nicotine 14 Mg Patch.Td24) 14 mg TRANSDERMA DAILY [facility] Last Admin: 11/03/22 09:06 Dose: 14 mg Documented By: FERNANDO Omeprazole (Omeprazole 20 Mg Capsule.Dr) 20 mg PO DAILY@0630 [facility] Last Admin: 11/03/22 05:46 Dose: 20 mg Documented By: DURGA Ondansetron HCl (Ondansetron Hcl 4 Mg/2 Ml Vial) 4 mg IVPUSH Q8H PRN PRN Reason: Nausea and Vomiting Last Admin: 10/30/22 20:31 Dose: 4 mg Documented By: LUIS Comments: med did not save during scan Oxycodone HCl (Oxycodone Hcl Immed Release 5 Mg Tablet) 5 mg PO Q6H PRN PRN Reason: Pain, Severe (Pain Scale 7-10) Last Admin: 10/31/22 22:08 Dose: 5 mg Documented By: BHARATH Paroxetine HCl (Paroxetine Hcl 40 Mg Tablet) 40 mg PO DAILY [facility] Last Admin: 11/03/22 09:08 Dose: 40 mg Documented By: FERNANDO Pharmacy Consult (Consult Rx Perform Med Rec) 1 each MISCELLANE ONCE PRN PRN Reason: Consult order Prazosin HCl (Prazosin Hcl 1 Mg Capsule) 4 mg PO BEDTIME [facility]; Protocol Last Admin: 11/02/22 20:31 Dose: 4 mg Documented By: DURGA Quetiapine Fumarate (Quetiapine Fumarate 100 Mg Tablet) 100 mg PO BEDTIME [facility] Last Admin: 11/02/22 20:31 Dose: 100 mg Documented By: DURGA Sodium Chloride (0.9 % Sodium Chloride Flush 3 Ml Syringe) 3 ml IVFLUSH QSHIFT [facility] Last Admin: 11/03/22 09:13 Dose: Not Given Documented By: FERNANDO Non-Admin Reason: IV Running Labs 11/03/22 06:14 11/02/22 05:57 Labs: Laboratory Results - last 24 hr 11/03/22 11/03/22 06:14 06:14 MCV 88.5 MCH 29.3 MCHC 33.1 RDW 13.4 Plt Count 214 D MPV 10.5 Absolute Nucleated RBC 0.000 Nucleated RBC % (auto) 0.0 Total Bilirubin 0.2 Direct Bilirubin < 0.2 AST 152 H ALT 118 H Alkaline Phosphatase 48 Total Creatine Kinase 3913 H Total Protein 5.4 L Albumin 3.3 L Assessment and Plan (1) RONA (acute kidney injury): Status: Acute (2) Polysubstance (including opioids) dependence, daily use: Status: Acute (3) Suicidal ideation: Status: Acute (4) Rhabdomyolysis: Status: Acute Plan 31-year-old gentleman with history of PTSD, depression, dissociated identity dis order discharged from shelter 2 days ago, has been using IV cocaine presented to [facility] for feeling unsafe associated with symptoms of upper extremity puffiness swelling discomfort as well as right upper quadrant discomfort associated with nausea patient diagnosed to have acute renal failure with rhabdomyolysis and elevated liver enzymes and troponin. # acute rhabdomyolysis due to IV cocaine use, with no history of trauma or fall, patient admitted to medical floor treated with IV fluid,? [place] 72773 to [address] to ? ? 04149 to 3913 today, on IV fluid , encourage by mouth intake, follow labs. # acute kidney injury related to pigment nephrotoxicity , resolved . # elevated troponin with no associated chest pain or EKG changes likely due to cocaine ,recommend to abstain from cocaine use, no further workup required. # IV cocaine use disorder seen by Addiction Team patient received teachings regarding risk of overdose , recovery resources provided to patient. # feeling unsafe/suicidal ideation seen by care team patient denied acute suicidal ideation but felt depressed and hopeless and agreed for voluntary inpatient psych admission. # hypermagnesemia likely due to acute kidney injury , magnesium return to normal range # transaminitis with significantly elevated AST/alt , abd.ultrasound showed no significant abnormality unremarkable gallbladder and liver and normal caliber CBD, hepatitis panel pos for ? ? Hep C ab,? LFTs trending down, question related to cocaine use, and hep C ,recommend outpatient GI follow-up. #? Tobacco use disorder counseling , continue nicotine patch. #? PTSD/ depression and DID? continue home medications including? Seroquel and Paxil.? No behavioral issues noted # ?opioid use disorder continue methadone. #? neuropathy continue gabapentin. Patient will need continued inpatient hospitalization for for IV fluids and need safe disposition to psychiatric floor due to depression and hopelessness Time Spent With Patient Time: Total time managing care of this patient today ____ minutes. Quality Stroke Does the patient have a stroke diagnosis?: No VTE Prior VTE?: No VTE Risk Level:: Medical - moderate - high VTE Device Contraindication: Treatment Not Indicated VTE Drug Contraindication: N/A - Med Ordered
[2022-11-03] MEDS: 0.9 % Sodium Chloride 1,000 ML 100 ML IVCONT (16:37)
[2022-11-03] MEDS: Enoxaparin Sodium 40 MG/0.4 ML SYRINGE SUBCUT (17:19)
[2022-11-03 19:35] VITALS: BP 134/80; PULSE 66; RESP 20; TEMP 36.1; O2SAT 98
[2022-11-03] MEDS: QUEtiapine Fumarate 100 MG TABLET PO (20:51)
[2022-11-03] MEDS: 0.9 % Sodium Chloride Flush 3 ML SYRINGE IVFLUSH (20:52)
[2022-11-03] MEDS: Prazosin HCL 1 MG CAPSULE 4 MG PO (20:52)
[2022-11-03] MEDS: Melatonin 3 MG TABLET 6 MG PO (20:54)
[2022-11-03] MEDS: oxyCODONE HCl Immed Release 5 MG TABLET PO (20:54)
[2022-11-03 23:01] VITALS: BP 127/77; PULSE 57; RESP 18; TEMP 36.1; O2SAT 97
== END 2022-11-03 22:27 | DRG 816 ==
LOC: HO.ED 17:04 → HO.EDOVER 17:31 → HO.IMC 17:36
PROVIDERS: Physician Assistant Medical; Admitting Provider Hospitalist; Emergency Provider Emergency Medicine Emergency Medical Services; Visit Provider Hospitalist
DX: T40.5X1A Poisoning by cocaine, accidental (unintentional), initial encounter (principal); N17.9 Acute kidney failure, unspecified; E83.41 Hypermagnesemia; M62.82 Rhabdomyolysis; R45.851 Suicidal ideations; F11.20 Opioid dependence, uncomplicated; F43.10 Post-traumatic stress disorder, unspecified; F19.20 Other psychoactive substance dependence, uncomplicated; F44.81 Dissociative identity disorder; G62.9 Polyneuropathy, unspecified; F17.210 Nicotine dependence, cigarettes, uncomplicated; Z20.822 Contact with and (suspected) exposure to COVID-19; Z59.02 Unsheltered homelessness; Z71.6 Tobacco abuse counseling; Z88.0 Allergy status to penicillin; Z79.899 Other long term (current) drug therapy
CPT/HCPCS: 36415; 71046; 76705; 80048; 80053; 80061; 80076; 80307; 81003; 82550; 83735; 84100; 84484; 85025; 85027; 86704; 86706; 86709; 86803; 87340; 87635; 93005; 99285; J1650; J2405; S9485

== ENCOUNTER 2022-11-04 00:29 | Inpatient (IN) | payer OTHER, SELFPAY ==
--- OUTSIDE RECORDS SUMMARY | 2022-11-04 00:31 | XMS_ITS | Patient Health Record ---
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 [facility] Unavailable [phone] Ramón Paul Unavailable [phone] Tabatha Andrade Unavailable [phone] Ifrah Brady Unavailable Unavailable ALLERGIES Allergen (clinical drug ingredient) Drug/Non Drug Allergy documented on EMR Reaction Allergy Type Onset Date Status amoxicillin amoxicillin([facility] Code:[address]-04) Unknown Drug Allergy Active ENCOUNTERS from 1990 to 2022-11-04 Encounter Location Date Provider Diagnosis Outreach [address] [place], [place] [phone] Apr, [facility] [address] [place] [address] [phone] Nov, Ramón Paul [facility] [address] [place] [phone] Nov, Moriah Awad [facility] [address] [place] [address] [phone] Nov, Ramón Paul [facility] [address] [place] [phone] Nov, Ramón Paul [facility] [address] [place] [address] [phone] Nov, Ramón Paul [facility] [address] [place], [place] [phone] Sep, Tabatha Andrade [facility] [address] [place], [place] [phone] Sep, Tabatha Andrade [facility] [address] [place] [address] [phone] Sep, Moriah Awad [facility] [address] [place] [address] [phone] Aug, Ifrah Brady SOCIAL HISTORY Sex Assigned At : Social History Observation Description Sex Assigned At Unknown REASON FOR REFERRAL from 1990 to 2022-11-04 Referring Provider First Name Ifrah Referring Provider Last Name Caitlyn Referring Provider [facility] Referred Provider Interagency,Case Con ference Referral Priority Routine MEDICATIONS Medication SIG (Take, Route, Frequency, Duration) Notes Start Date End Date Status Seroquel Active Remeron Active Minipress Active gabapentin Active REASON FOR VISIT No Information MEDICAL (GENERAL) HISTORY Type Description Date Medical History tobacco use Medical History add/adhd Medical History asthma Medical History recreation drug use MENTAL STATUS No Information PLAN OF TREATMENT Referrals Referral Date Details Case Conference Inte ragency Insurance Providers Payer Name Payer Address Payer Phone Insured Name Patient Relationship to Insured Coverage Start Date Coverage End Date Subscriber Number Group Number [place] Medicaid Standard [address] [facility] [phone] Jovany Graves Self - patient is the insured [id number] [facility] [address] [facility] [address] [facility] [phone] Jovany Graves Self - patient is the insured [id number] [place] [facility] [address] Attn Claims [facility] [phone] Jovany Graves Self - patient is the insured 7 [id number] [facility] Safety [facility] [address] [facility] [address] Jovany Graves Self - patient is the insured 7 [id number]
[2022-11-04 05:30] VITALS: BP 122/79; PULSE 58; TEMP 36.5; O2SAT 99; BMI 28.9
--- NOTE | 2022-11-04 05:32 | PC.ADMIT ---
patient arrived on unit 0515 from [facility]. doctor to doctor report and nurse to nurse report obtained prior to admission. collateral information obtained prior to admission. legal: CV. dx: unspecified depressive d/o, opioid and cocaine use d/o, severe. patient was admitted medically for acute RONA and rhabdomyolysis. Upon arrival to unit allowed for unit orientation, VS, height and weight and skin assessment then requested to go to bed. will report off to next shift for completion of nursing assessment.
--- NOTE | 2022-11-04 06:53 | PHA.MEDREC ---
Pharmacy Consult ? Medication Reconciliation Pharmacy has completed the medication reconciliation. pATIENT WAS ON IMC. METHADONE AND MED LIST CONFIRMED ON 10/31 YOLANDA
[2022-11-04 07:53] VITALS: BP 121/76; PULSE 62; TEMP 36.6; O2SAT 98
[2022-11-04] MEDS: methADONE HCl 20 MG/2 ML ORAL.CONC 195 MG PO (08:12)
[2022-11-04] MEDS: Gabapentin 400 MG CAPSULE 800 MG PO ×2 (08:14→21:40)
[2022-11-04] MEDS: PARoxetine HCL 40 MG TABLET PO (08:15)
--- NOTE | 2022-11-04 09:34 | P.HPPS_ITS ---
HPI Date of Service: 11/04/22 Chief Complaint: Psych Sources of Information: patient interviewed, chart reviewed and crisis/core team assessment reviewed HPI Subjective Notes: [place] Warning and Conditional Voluntary Narrative: Mr. Graves is a 31 year-old male with hx of cocaine and opioid use disorder who was self presented to [facility] reporting feeling dizzy, found to have rhabdo and RONA. He was admitted medically. Utox positive for cocaine, opioids, fentanyl and cannabinoids. During medical admission, pt reported suicide ideation. On the unit, pt reports he is feeling better physically. He also reports feeling less depressed and overwhelmed. He reports he was released from prison on 10/28 and relapsed on cocaine and opioids. Pt reports he was worried about his health as he felt dizzy, lightheaded. He also reports feeling very anxious. He denies suicidal or homicidal ideation. he denies hx of auditory hallucinations. He reports hx of trauma. He reports using substances since he was 18 years-old. He reports paxil, prazosin, seroquel and gabapentin have been helpful but would like benzodiazepine for anxiety as nothing else has been effective. He reports he plans to step down to alf and continue mostly outpatient psychiatric treatment. Past Psychiatric History: Inpt: [facility] more than 10 years ago OP: none Past medication trials: concerta, ritalin, adderall, seroquel, lithium, depakote, paxil, celexa, risperidone Denies hx of suicide attempts. Medical Evaluation Reviewed: Yes Diagnostics Vital Signs (24Hr): Vital Signs - 24 hr 11/04/22 05:30 11/04/22 07:53 Temperature 97.7 F 97.9 F Pulse Rate 58 62 Blood Pressure 122/79 121/76 Pulse Oximetry 99 98 Oxygen Delivery Method Room Air Room Air BMI result Body Mass Index 28.9 Meds/Allergies Meds Home Medications Medication Instructions Recorded Confirmed Type methadone 10 mg/mL oral concentrate 195 mg PO DAILY 12/30/21 11/04/22 History gabapentin 400 mg tablet 800 mg PO BID 03/21/22 11/04/22 History paroxetine HCl 40 mg tablet (Paxil) 40 mg PO DAILY 03/21/22 11/04/22 History prazosin 2 mg capsule 4 mg PO BEDTIME 03/21/22 11/04/22 History docusate sodium 100 mg capsule 100 mg PO BEDTIME PRN Constipation 10/30/22 11/04/22 History quetiapine 100 mg tablet (Seroquel) 100 mg PO BEDTIME 10/30/22 11/04/22 History Allergies Allergies Allergy/AdvReac Type Severity Reaction Status Date / Time amoxicillin Allergy Hives Verified 10/30/22 13:55 Penicillins [PCN] Allergy Hives Verified 10/30/22 13:55 Mental Status Exam Mental Status Exam Narrative: Appearance: casually groomed, good hygiene, in NAD Behavior: cooperative Psychomotor: no agitation or retardation noted Speech: clear, normal rate/rhythm/volume, spontaneous TP: linear TC: no signs of psychosis, hoping to step down to alf feeling better Mood: better Affect: congruent SI: denies HI: denies VH/AH: denies Delusions: none Insight/judgment: poor x 2. memory/cog: alert, oriented x 3. Assessment & Plan Assessment & Plan (1) Opioid use disorder, moderate, dependence: Status: Acute Code(s): F11.20 - Opioid dependence, uncomplicated (2) Cocaine use disorder, moderate, dependence: Status: Acute Code(s): F14.20 - Cocaine dependence, uncomplicated (3) Mood disorder: Status: Acute Code(s): F39 - Unspecified mood [affective] disorder Plan Mr. Graves is a 31 year-old male with hx of cocaine and opioid use disorder. He self presented to [facility] reporting feeling dizzy, lightheaded. Pt found to have rhabdo and RONA. On the unit, pt denies suicidal or homciidal ideation. he reports he recently was released from prison and is struggling to adjust. He reports most debilitating symptoms is anxiety and asks if he can be prescribed benzodiazepine. We discussed risks of rx of benzodiazepines as he continues to work on recovery given risk of abuse or misuse. Pt agrees to continue paxil, prazosin, seroquel. One time dose of ativan while in hospital, but pt UN DERSTANDS NO RX FOR BENZODIAZEPINES WILL BE GIVEN ON DISCHARGE. PLAN 1. Admit to M3, cv 15 minutes checks for safety 2. continue paxil, seroquel, prazosin 3. aftercare planning. 4. GIVE NARCAN AT TIME OF DISCHARGE. Patient educated on: diagnosis Reason for continued inpatient stay Substantial Risk for: stable for discharge Statement Statement: I have reviewed the history and physical and performed a pertinent examination on my patient. No changes have occurred unless specified. If the History and Physical was not performed prior to admission, the Hospitalist's service will be consulted for completing the admission physical. Time Spent With Patient Time: Total time managing care of this patient today ____ minutes.
[2022-11-04] MEDS: Nicotine 21 MG PATCH.TD24 TRANSDERMA (12:17)
[2022-11-04] MEDS: Nicotine Polacrilex 2 MG GUM 4 MG BUCCAL ×4 (12:43→21:45)
[2022-11-04 18:00] VITALS: BP 126/86; PULSE 66; RESP 16; TEMP 36.7; O2SAT 99
[2022-11-04] MEDS: QUEtiapine Fumarate 100 MG TABLET PO (21:41)
[2022-11-04] MEDS: Prazosin HCL 1 MG CAPSULE 4 MG PO (21:41)
[2022-11-05 07:59] VITALS: BP 111/72; PULSE 68; TEMP 36.4; O2SAT 99
[2022-11-05] MEDS: Gabapentin 400 MG CAPSULE 800 MG PO ×2 (08:34→20:53)
[2022-11-05] MEDS: PARoxetine HCL 40 MG TABLET PO (08:34)
[2022-11-05] MEDS: methADONE HCl 20 MG/2 ML ORAL.CONC 195 MG PO (08:35)
[2022-11-05 08:37] LABS: Estimated Average Glucose 97 mg/dL
[2022-11-05] MEDS: Nicotine 21 MG PATCH.TD24 TRANSDERMA (08:37)
[2022-11-05] MEDS: Nicotine Polacrilex 2 MG GUM 4 MG BUCCAL ×4 (08:37→20:53)
[2022-11-05 08:53] LABS: Cholesterol 236 mg/dL; HDL Cholesterol 36 mg/dL; LDL Cholesterol Calculated 133 mg/dl; Triglycerides 336 mg/dL
[2022-11-05 09:22] LABS: Folate 10.1 ng/mL (> or = 4.0); Free T4 (Free Thyroxine) 0.94 ng/dL (0.71-1.85); Thyroid Stimulating Hormone 2.58 uIU/mL (0.32-4.0); Vitamin B12 569 pg/mL (200-900)
[2022-11-05] MEDS: QUEtiapine Fumarate 25 MG TABLET PO (13:12)
--- NOTE | 2022-11-05 14:17 | HO.PSYCHPN ---
Subjective Subjective Date of Service: 11/05/22 Reason For Visit: Psych Interim History: calm, cooperative. states his mood is reasonably good. no complaints or requests. states he is looking to get into a sober living situation and is planning to discharge to a skilled nursing as a next step. denies cravings, SI. per staff, wants med adjustment. on 195 methadone. asking for ativan. appears relaxed. eating well, watching TV, napping. polite, pleasant. Mental Status Exam Mental Status Exam Narrative: Appearance: casually groomed, good hygiene, in NAD Behavior: cooperative Psychomotor: no agitation or retardation noted Speech: clear, normal rate/rhythm/volume, spontaneous TP: linear TC: no signs of psychosis, hoping to step down to skilled nursing feeling better Mood: pretty good Affect: congruent SI: denies HI: denies VH/AH: denies Delusions: none Insight/judgment: poor x 2. memory/cog: alert, oriented x 3. Diagnostics Vital Signs (24Hr): Vital Signs - 24 hr 11/04/22 18:00 11/05/22 07:59 Temperature 98.1 F 97.6 F Pulse Rate 66 68 Respiratory Rate 16 Blood Pressure 126/86 111/72 Pulse Oximetry 99 99 Oxygen Delivery Method Room Air BMI result Body Mass Index 28.9 Labs Labs: Laboratory Results - last 48 hr 11/05/22 11/05/22 08:17 08:17 Estimat Average Glucose 97 Hemoglobin A1c % 5.0 Magnesium 2.0 Triglycerides 336 Cholesterol 236 LDL Cholesterol, Calc 133 HDL Cholesterol 36 Vitamin B12 569 Folate 10.1 TSH 2.58 Free T4 0.94 Medications Medications Current Medications Acetaminophen (Acetaminophen 325 Mg Tablet) 650 mg PO Q6H PRN PRN Reason: Headache/Pain Mild Scale (1-3) Al Hydroxide/Mg Hydroxide (Magnesium Hydrox/Alum Hydrox 30 Ml Oral.Susp) 30 ml PO Q6H PRN PRN Reason: Heartburn/Nausea Docusate Sodium (Docusate Sodium 100 Mg Capsule) 100 mg PO BEDTIME PRN PRN Reason: Constipation Gabapentin (Gabapentin 400 Mg Capsule) 800 mg PO BID [facility] Last Admin: 11/05/22 08:34 Dose: 800 mg Hydroxyzine HCl (Hydroxyzine Hcl 25 Mg Tablet) 25 mg PO Q6H PRN PRN Reason: Anxiety Magnesium Hydroxide (Milk Of Magnesia 30 Ml Oral.Susp) 30 ml PO DAILY PRN PRN Reason: Constipation Melatonin (Melatonin 3 Mg Tablet) 6 mg PO BEDTIME PRN PRN Reason: Insomnia Methadone HCl (Methadone Hcl 20 Mg/2 Ml Oral.Conc) 195 mg PO DAILY [facility] Last Admin: 11/05/22 08:35 Dose: 195 mg Nicotine (Nicotine 21 Mg Patch.Td24) 21 mg TRANSDERMA DAILY [facility] Last Admin: 11/05/22 08:37 Dose: 21 mg Nicotine Polacrilex (Nicotine Polacrilex 2 Mg Gum) 4 mg BUCCAL Q1H PRN PRN Reason: Nicotine Cravings Last Admin: 11/05/22 11:22 Dose: 4 mg Paroxetine HCl (Paroxetine Hcl 40 Mg Tablet) 40 mg PO DAILY [facility] Last Admin: 11/05/22 08:34 Dose: 40 mg Prazosin HCl (Prazosin Hcl 1 Mg Capsule) 4 mg PO BEDTIME [facility]; Protocol Last Admin: 11/04/22 21:41 Dose: 4 mg Quetiapine Fumarate (Quetiapine Fumarate 100 Mg Tablet) 100 mg PO BEDTIME [facility] Last Admin: 11/04/22 21:41 Dose: 100 mg Quetiapine Fumarate (Quetiapine Fumarate 25 Mg Tablet) 25 mg PO Q4H PRN PRN Reason: severe anxiety Last Admin: 11/05/22 13:12 Dose: 25 mg Trazodone HCl (Trazodone Hcl 50 Mg Tablet) 50 mg PO BEDTIME PRN PRN Reason: Insomnia Allergies Allergies Allergy/AdvReac Type Severity Reaction Status Date / Time amoxicillin Allergy Hives Verified 10/30/22 13:55 Penicillins [PCN] Allergy Hives Verified 10/30/22 13:55 Assessment & Plan Assessment & Plan (1) Opioid use disorder, moderate, dependence: Status: Acute Code(s): F11.20 - Opioid dependence, uncomplicated (2) Cocaine use disorder, moderate, dependence: Status: Acute Code(s): F14.20 - Cocaine dependence, uncomplicated (3) Mood disorder: Status: Acute Code(s): F39 - Unspecified mood [affective] disorder Plan Mr. Graves is a 31 year-old male with hx of cocaine and opioid use disorder. He self presented to [facility] reporting feeling dizzy, lightheaded. Pt found to have rhabdo and RONA. On the unit, pt denies suicidal or homciidal ideation. he reports he recently was released from snf and is struggling to adjust. He reports most debilitating symptoms is anxiety and asks if he can be prescribed benzodiazepine. We discussed risks of rx of benzodiazepines as he continues to work on recovery given risk of abuse or misuse. Pt agrees to continue paxil, prazosin, seroquel. One time dose of ativan while in hospital, but pt UNDERSTANDS NO RX FOR BENZODIAZEPINES WILL BE GIVEN ON DISCHARGE. PLAN 1. Admit to M3, cv 15 minutes checks for safety 2. continue paxil, seroquel, prazosin 3. aftercare planning. 4. GIVE NARCAN AT TIME OF DISCHARGE. 11/05: continue current mgmt. add seroquel 25 Q4H PRN anxiety. Reason for continued inpatient stay Substantial Risk for: inability to function and rapid decompensation Time Spent With Patient Time: Total time managing care of this patient today __25__ minutes.
[2022-11-05 20:45] VITALS: BP 104/59; PULSE 56; RESP 16; TEMP 36.4; O2SAT 95
[2022-11-05] MEDS: QUEtiapine Fumarate 100 MG TABLET PO (20:53)
[2022-11-05] MEDS: Melatonin 3 MG TABLET 6 MG PO (20:54)
[2022-11-05] MEDS: Prazosin HCL 1 MG CAPSULE 4 MG PO (20:54)
[2022-11-06] MEDS: Nicotine Polacrilex 2 MG GUM 4 MG BUCCAL ×5 (08:51→22:15)
[2022-11-06] MEDS: methADONE HCl 20 MG/2 ML ORAL.CONC 195 MG PO (09:15)
[2022-11-06] MEDS: PARoxetine HCL 40 MG TABLET PO (09:16)
[2022-11-06] MEDS: Gabapentin 400 MG CAPSULE 800 MG PO ×2 (09:16→20:35)
[2022-11-06] MEDS: Nicotine 21 MG PATCH.TD24 TRANSDERMA (09:17)
--- NOTE | 2022-11-06 14:15 | HO.PSYCHPN ---
Subjective Subjective Date of Service: 11/06/22 Reason For Visit: Psych Interim History: no questions or concerns. awaiting bed at local group home. per staff, pleasant, no issues, anx 5. Mental Status Exam Mental Status Exam Narrative: Appearance: casually groomed, good hygiene, in NAD Behavior: cooperative Psychomotor: no agitation or retardation noted Speech: clear, normal rate/rhythm/volume, spontaneous TP: linear TC: no signs of psychosis, hoping to step down to group home feeling better Mood: pretty good Affect: congruent SI: denies HI: denies VH/AH: denies Delusions: none Insight/judgment: poor x 2. memory/cog: alert, oriented x 3. Diagnostics Vital Signs (24Hr): Vital Signs - 24 hr 11/05/22 20:45 Temperature 97.5 F Pulse Rate 56 Respiratory Rate 16 Blood Pressure 104/59 L Pulse Oximetry 95 Oxygen Delivery Method Room Air BMI result Body Mass Index 28.9 Labs Labs: Laboratory Results - last 48 hr 11/05/22 11/05/22 08:17 08:17 Estimat Average Glucose 97 Hemoglobin A1c % 5.0 Magnesium 2.0 Triglycerides 336 Cholesterol 236 LDL Cholesterol, Calc 133 HDL Cholesterol 36 Vitamin B12 569 Folate 10.1 TSH 2.58 Free T4 0.94 Medications Medications Current Medications Acetaminophen (Acetaminophen 325 Mg Tablet) 650 mg PO Q6H PRN PRN Reason: Headache/Pain Mild Scale (1-3) Al Hydroxide/Mg Hydroxide (Magnesium Hydrox/Alum Hydrox 30 Ml Oral.Susp) 30 ml PO Q6H PRN PRN Reason: Heartburn/Nausea Docusate Sodium (Docusate Sodium 100 Mg Capsule) 100 mg PO BEDTIME PRN PRN Reason: Constipation Gabapentin (Gabapentin 400 Mg Capsule) 800 mg PO BID [facility] Last Admin: 11/06/22 09:16 Dose: 800 mg Hydroxyzine HCl (Hydroxyzine Hcl 25 Mg Tablet) 25 mg PO Q6H PRN PRN Reason: Anxiety Magnesium Hydroxide (Milk Of Magnesia 30 Ml Oral.Susp) 30 ml PO DAILY PRN PRN Reason: Constipation Melatonin (Melatonin 3 Mg Tablet) 6 mg PO BEDTIME PRN PRN Reason: Insomnia Last Admin: 11/05/22 20:54 Dose: 6 mg Methadone HCl (Methadone Hcl 20 Mg/2 Ml Oral.Conc) 195 mg PO DAILY [facility] Last Admin: 11/06/22 09:15 Dose: 195 mg Nicotine (Nicotine 21 Mg Patch.Td24) 21 mg TRANSDERMA DAILY [facility] Last Admin: 11/06/22 09:17 Dose: 21 mg Nicotine Polacrilex (Nicotine Polacrilex 2 Mg Gum) 4 mg BUCCAL Q1H PRN PRN Reason: Nicotine Cravings Last Admin: 11/06/22 08:51 Dose: 4 mg Paroxetine HCl (Paroxetine Hcl 40 Mg Tablet) 40 mg PO DAILY [facility] Last Admin: 11/06/22 09:16 Dose: 40 mg Prazosin HCl (Prazosin Hcl 1 Mg Capsule) 4 mg PO BEDTIME [facility]ESSIE; Protocol Quetiapine Fumarate (Quetiapine Fumarate 100 Mg Tablet) 100 mg PO BEDTIME [facility] Last Admin: 11/05/22 20:53 Dose: 100 mg Quetiapine Fumarate (Quetiapine Fumarate 25 Mg Tablet) 25 mg PO Q4H PRN PRN Reason: severe anxiety Last Admin: 11/05/22 13:12 Dose: 25 mg Trazodone HCl (Trazodone Hcl 50 Mg Tablet) 50 mg PO BEDTIME PRN PRN Reason: Insomnia Allergies Allergies Allergy/AdvReac Type Severity Reaction Status Date / Time amoxicillin Allergy Hives Verified 10/30/22 13:55 Penicillins [PCN] Allergy Hives Verified 10/30/22 13:55 Assessment & Plan Assessment & Plan (1) Opioid use disorder, moderate, dependence: Status: Acute Code(s): F11.20 - Opioid dependence, uncomplicated (2) Cocaine use disorder, moderate, dependence: Status: Acute Code(s): F14.20 - Cocaine dependence, uncomplicated (3) Mood disorder: Status: Acute Code(s): F39 - Unspecified mood [affective] disorder Plan Mr. Graves is a 31 year-old male with hx of cocaine and opioid use disorder. He self [place] [facility] reporting feeling dizzy, lightheaded. Pt found to have rhabdo and RONA. On the unit, pt denies suicidal or homciidal ideation. he reports he recently was released from assisted and is struggling to adjust. He reports most debilitating symptoms is anxiety and asks if he can be prescribed benzodiazepine. We discussed risks of rx of benzodiazepines as he continues to work on recovery given risk of abuse or misuse. Pt agrees to continue paxil, prazosin, seroquel. One time dose of ativan while in hospital, but pt UNDERSTANDS NO RX FOR BENZODIAZEPINES WILL BE GIVEN ON DISCHARGE. PLAN 1. Admit to M3, cv 15 minutes checks for safety 2. continue paxil, seroquel, prazosin 3. aftercare planning. 4. GIVE NARCAN AT TIME OF DISCHARGE. 11/05: continue current mgmt. add seroquel 25 Q4H PRN anxiety. 11/06: stable. continue current mgmt. awaiting bed at group home. Reason for continued inpatient stay Substantial Risk for: inability to function and rapid decompensation Time Spent With Patient Time: Total time managing care of this patient today ____ minutes.
[2022-11-06 20:19] VITALS: BP 119/68; PULSE 63; RESP 18; TEMP 36.6; O2SAT 97
[2022-11-06] MEDS: Prazosin HCL 1 MG CAPSULE 4 MG PO (20:33)
[2022-11-06] MEDS: QUEtiapine Fumarate 100 MG TABLET PO (20:35)
[2022-11-06] MEDS: Melatonin 3 MG TABLET 6 MG PO (20:35)
[2022-11-07] MEDS: Gabapentin 400 MG CAPSULE 800 MG PO ×2 (09:17→21:27)
[2022-11-07] MEDS: methADONE HCl 20 MG/2 ML ORAL.CONC 195 MG PO (09:17)
[2022-11-07] MEDS: PARoxetine HCL 40 MG TABLET PO (09:17)
[2022-11-07] MEDS: Nicotine 21 MG PATCH.TD24 TRANSDERMA (09:19)
[2022-11-07 09:51] VITALS: BP 106/56; PULSE 83
[2022-11-07] MEDS: Nicotine Polacrilex 2 MG GUM 4 MG BUCCAL ×5 (11:06→21:30)
--- NOTE | 2022-11-07 15:38 | P.PNPSI_ITS ---
Subjective Subjective Date of Service: 11/07/22 Reason For Visit: Psych Interim History: no questions or complaints, looking and feeling well. per staff, deneis anx/dep/SI/HI/pain. relaxed and brighter. Mental Status Exam Mental Status Exam Narrative: Appearance: casually groomed, good hygiene, in NAD Behavior: cooperative Psychomotor: no agitation or retardation noted Speech: clear, normal rate/rhythm/volume, spontaneous TP: linear TC: no signs of psychosis, hoping to step down to snf feeling better Mood: euthymic Affect: congruent SI: denies HI: denies VH/AH: denies Delusions: none Insight/judgment: poor x 2. memory/cog: alert, oriented x 3. Diagnostics Vital Signs (24Hr): Vital Signs - 24 hr 11/06/22 20:19 11/07/22 09:51 Temperature 97.9 F Pulse Rate 63 83 Respiratory Rate 18 Blood Pressure 119/68 106/56 L Pulse Oximetry 97 Oxygen Delivery Method Room Air BMI result Body Mass Index 28.9 Medications Medications Current Medications Acetaminophen (Acetaminophen 325 Mg Tablet) 650 mg PO Q6H PRN PRN Reason: Headache/Pain Mild Scale (1-3) Al Hydroxide/Mg Hydroxide (Magnesium Hydrox/Alum Hydrox 30 Ml Oral.Susp) 30 ml PO Q6H PRN PRN Reason: Heartburn/Nausea Docusate Sodium (Docusate Sodium 100 Mg Capsule) 100 mg PO BEDTIME PRN PRN Reason: Constipation Gabapentin (Gabapentin 400 Mg Capsule) 800 mg PO BID [facility] Last Admin: 11/07/22 09:17 Dose: 800 mg Hydroxyzine HCl (Hydroxyzine Hcl 25 Mg Tablet) 25 mg PO Q6H PRN PRN Reason: Anxiety Magnesium Hydroxide (Milk Of Magnesia 30 Ml Oral.Susp) 30 ml PO DAILY PRN PRN Reason: Constipation Melatonin (Melatonin 3 Mg Tablet) 6 mg PO BEDTIME PRN PRN Reason: Insomnia Last Admin: 11/06/22 20:35 Dose: 6 mg Methadone HCl (Methadone Hcl 20 Mg/2 Ml Oral.Conc) 195 mg PO DAILY [facility] Last Admin: 11/07/22 09:17 Dose: 195 mg Nicotine (Nicotine 21 Mg Patch.Td24) 21 mg TRANSDERMA DAILY [facility] Last Admin: 11/07/22 09:19 Dose: 21 mg Nicotine Polacrilex (Nicotine Polacrilex 2 Mg Gum) 4 mg BUCCAL Q1H PRN PRN Reason: Nicotine Cravings Last Admin: 11/07/22 13:27 Dose: 4 mg Paroxetine HCl (Paroxetine Hcl 40 Mg Tablet) 40 mg PO DAILY [facility] Last Admin: 11/07/22 09:17 Dose: 40 mg Prazosin HCl (Prazosin Hcl 1 Mg Capsule) 4 mg PO BEDTIME [facility]ESSIE; Protocol Last Admin: 11/06/22 20:33 Dose: 4 mg Quetiapine Fumarate (Quetiapine Fumarate 100 Mg Tablet) 100 mg PO BEDTIME [facility] Last Admin: 11/06/22 20:35 Dose: 100 mg Quetiapine Fumarate (Quetiapine Fumarate 25 Mg Tablet) 25 mg PO Q4H PRN PRN Reason: severe anxiety Last Admin: 11/05/22 13:12 Dose: 25 mg Trazodone HCl (Trazodone Hcl 50 Mg Tablet) 50 mg PO BEDTIME PRN PRN Reason: Insomnia Allergies Allergies Allergy/AdvReac Type Severity Reaction Status Date / Time amoxicillin Allergy Hives Verified 10/30/22 13:55 Penicillins [PCN] Allergy Hives Verified 10/30/22 13:55 Assessment & Plan Assessment & Plan (1) Opioid use disorder, moderate, dependence: Status: Acute Code(s): F11.20 - Opioid dependence, uncomplicated (2) Cocaine use disorder, moderate, dependence: Status: Acute Code(s): F14.20 - Cocaine dependence, uncomplicated (3) Mood disorder: Status: Acute Code(s): F39 - Unspecified mood [affective] disorder Plan Mr. Graves is a 31 year-old male with hx of cocaine and opioid use disorder. He self presented to [facility] reporting feeling dizzy, lightheaded. Pt found to have rhabdo and RONA. On the unit, pt denies suicidal or homciidal ideation. he reports he recently was released from intermediate and is struggling to adjust. He reports most debilitating symptoms is anxiety and asks if he can be prescribed benzodiazepine. We discussed risks of rx of benzodiazepines as he continues to work on recovery given risk of abuse or misuse. Pt agrees to continue paxil, prazosin, seroquel. One time dose of ativan while in hospital, but pt UNDERSTANDS NO RX FOR BENZODIAZEPINES WILL BE GIVEN ON DISCHARGE. PLAN 1. Admit to M3, cv 15 minutes checks for safety 2. continue paxil, seroquel, prazosin 3. aftercare planning. 4. GIVE NARCAN AT TIME OF DISCHARGE. 11/05: continue current mgmt. add seroquel 25 Q4H PRN anxiety. 11/06: stable. continue current mgmt. awaiting bed at snf. 11/07: stable. continue current mgmt. awaiting bed at snf. Reason for continued inpatient stay Substantial Risk for: rapid decompensation Time Spent With Patient Time: Total time managing care of this patient today ____ minutes.
[2022-11-07 21:25] VITALS: BP 112/62; PULSE 69; RESP 18; TEMP 36.4; O2SAT 98
[2022-11-07] MEDS: Prazosin HCL 1 MG CAPSULE 4 MG PO (21:26)
[2022-11-07] MEDS: Melatonin 3 MG TABLET 6 MG PO (21:27)
[2022-11-07] MEDS: QUEtiapine Fumarate 100 MG TABLET PO (21:27)
[2022-11-08 06:00] VITALS: BP 121/71; PULSE 64; RESP 18; TEMP 36.1; O2SAT 98
[2022-11-08] MEDS: Nicotine Polacrilex 2 MG GUM 4 MG BUCCAL ×6 (07:07→21:15)
[2022-11-08] MEDS: Gabapentin 400 MG CAPSULE 800 MG PO ×2 (09:20→21:11)
[2022-11-08] MEDS: methADONE HCl 20 MG/2 ML ORAL.CONC 195 MG PO (09:21)
[2022-11-08] MEDS: Nicotine 21 MG PATCH.TD24 TRANSDERMA (09:21)
[2022-11-08] MEDS: PARoxetine HCL 40 MG TABLET PO (09:21)
--- NOTE | 2022-11-08 15:23 | HO.PSYCHPN ---
Subjective Subjective Date of Service: 11/08/22 Reason For Visit: Psych Interim History: continuing [employer] search tomorrow. stable, no concerning events or behaviors. no questions or complaints. Mental Status Exam Mental Status Exam Narrative: Appearance: casually groomed, good hygiene, in NAD Behavior: cooperative Psychomotor: no agitation or retardation noted Speech: clear, normal rate/rhythm/volume, spontaneous TP: linear TC: no signs of psychosis, hoping to step down to [facility] feeling better Mood: euthymic Affect: congruent SI: none expressed HI: none expressed VH/AH: none expressed Delusions: none Insight/judgment: poor x 2. memory/cog: alert, oriented x 3. Diagnostics Vital Signs (24Hr): Vital Signs - 24 hr 11/07/22 21:25 11/08/22 06:00 Temperature 97.6 F 97.0 F Pulse Rate 69 64 Respiratory Rate 18 18 Blood Pressure 112/62 121/71 Pulse Oximetry 98 98 Oxygen Delivery Method Room Air Room Air BMI result Body Mass Index 28.9 Medications Medications Current Medications Acetaminophen (Acetaminophen 325 Mg Tablet) 650 mg PO Q6H PRN PRN Reason: Headache/Pain Mild Scale (1-3) Al Hydroxide/Mg Hydroxide (Magnesium Hydrox/Alum Hydrox 30 Ml Oral.Susp) 30 ml PO Q6H PRN PRN Reason: Heartburn/Nausea Docusate Sodium (Docusate Sodium 100 Mg Capsule) 100 mg PO BEDTIME PRN PRN Reason: Constipation Gabapentin (Gabapentin 400 Mg Capsule) 800 mg PO BID [facility] Last Admin: 11/08/22 09:20 Dose: 800 mg Hydroxyzine HCl (Hydroxyzine Hcl 25 Mg Tablet) 25 mg PO Q6H PRN PRN Reason: Anxiety Magnesium Hydroxide (Milk Of Magnesia 30 Ml Oral.Susp) 30 ml PO DAILY PRN PRN Reason: Constipation Melatonin (Melatonin 3 Mg Tablet) 6 mg PO BEDTIME PRN PRN Reason: Insomnia Last Admin: 11/07/22 21:27 Dose: 6 mg Methadone HCl (Methadone Hcl 20 Mg/2 Ml Oral.Conc) 195 mg PO DAILY [facility] Last Admin: 11/08/22 09:21 Dose: 195 mg Nicotine (Nicotine 21 Mg Patch.Td24) 21 mg TRANSDERMA DAILY [facility] Last Admin: 11/08/22 09:21 Dose: 21 mg Nicotine Polacrilex (Nicotine Polacrilex 2 Mg Gum) 4 mg BUCCAL Q1H PRN PRN Reason: Nicotine Cravings Last Admin: 11/08/22 14:35 Dose: 4 mg Paroxetine HCl (Paroxetine Hcl 40 Mg Tablet) 40 mg PO DAILY [facility] Last Admin: 11/08/22 09:21 Dose: 40 mg Prazosin HCl (Prazosin Hcl 1 Mg Capsule) 4 mg PO BEDTIME [facility]; Protocol Last Admin: 11/07/22 21:26 Dose: 4 mg Quetiapine Fumarate (Quetiapine Fumarate 100 Mg Tablet) 100 mg PO BEDTIME [facility] Last Admin: 11/07/22 21:27 Dose: 100 mg Quetiapine Fumarate (Quetiapine Fumarate 25 Mg Tablet) 25 mg PO Q4H PRN PRN Reason: severe anxiety Last Admin: 11/05/22 13:12 Dose: 25 mg Trazodone HCl (Trazodone Hcl 50 Mg Tablet) 50 mg PO BEDTIME PRN PRN Reason: Insomnia Allergies Allergies Allergy/AdvReac Type Severity Reaction Status Date / Time amoxicillin Allergy Hives Verified 10/30/22 13:55 Penicillins [PCN] Allergy Hives Verified 10/30/22 13:55 Assessment & Plan Assessment & Plan (1) Opioid use disorder, moderate, dependence: Status: Acute Code(s): F11.20 - Opioid dependence, uncomplicated (2) Cocaine use disorder, moderate, dependence: Status: Acute Code(s): F14.20 - Cocaine dependence, uncomplicated (3) Mood disorder: Status: Acute Code(s): F39 - Unspecified mood [affective] disorder Plan Mr. Graves is a 31 year-old male with hx of cocaine and opioid use disorder. He self presented to [facility] ED reporting feeling dizzy, lightheaded. Pt found to have rhabdo and RONA. On the unit, pt denies suicidal or homciidal ideation. he reports he recently was released from alf and is struggling to adjust. He reports most debilitating symptoms is anxiety and asks if he can be prescribed benzodiazepine. We discussed risks of rx of benzodiazepines as he continues to work on recovery given risk of abuse or misuse. Pt agrees to continue paxil, prazosin, seroquel. One time dose of ativan while in hospital, but pt UNDERSTANDS NO RX FOR BENZODIAZEPINES WILL BE GIVEN ON DISCHARGE. PLAN 1. Admit to M3, cv 15 minutes checks for safety 2. continue paxil, seroquel, prazosin 3. aftercare planning. 4. GIVE NARCAN AT TIME OF DISCHARGE. 11/05: continue current mgmt. add seroquel 25 Q4H PRN anxiety. 11/06: stable. continue current mgmt. awaiting bed [facility]. 11/07: stable. continue current mgmt. awaiting bed [facility]. 11/08: stable. continue current mgmt. awaiting bed [facility]. Reason for continued inpatient stay Substantial Risk for: rapid decompensation Time Spent With Patient Time: Total time managing care of this patient today ____ minutes.
[2022-11-08 21:00] VITALS: BP 126/73; PULSE 75; RESP 16; TEMP 36.1; O2SAT 99
[2022-11-08] MEDS: Prazosin HCL 1 MG CAPSULE 4 MG PO (21:11)
[2022-11-08] MEDS: QUEtiapine Fumarate 100 MG TABLET PO (21:12)
[2022-11-08] MEDS: Melatonin 3 MG TABLET 6 MG PO (21:14)
[2022-11-09] MEDS: Nicotine Polacrilex 2 MG GUM 4 MG BUCCAL ×4 (05:44→12:09)
[2022-11-09 06:00] VITALS: BP 124/77; PULSE 63; RESP 18; TEMP 36.3; O2SAT 96
--- NOTE | 2022-11-09 08:16 | P.DS_ITS ---
DS: Providers Provider Date of Service: 11/09/22 Date of admission: 11/04/22 00:29 Primary care physician: Unknown Physician DS: Diagnosis Discharge Diagnosis (1) Opioid use disorder, moderate, dependence: Status: Acute (2) Cocaine use disorder, moderate, dependence: Status: Acute (3) Mood disorder: Status: Acute DS: Medications Discharge Medications Home Medications: Home Medications Medication Instructions Recorded Confirmed methadone 10 mg/mL oral concentrate 195 mg PO DAILY 12/30/21 11/04/22 Previous Rx's Medication Instructions Recorded docusate sodium 100 mg capsule 100 mg PO BEDTIME PRN Constipation 11/09/22 30 days #30 caps gabapentin 400 mg capsule 800 mg PO BID 30 days #120 caps 11/09/22 melatonin 3 mg tablet 6 mg PO BEDTIME PRN Insomnia 30 11/09/22 days #60 tabs nicotine (polacrilex) 2 mg gum 4 mg buccal Q1H PRN Nicotine 11/09/22 Cravings 30 days #360 ea nicotine 21 mg/24 hr daily 21 mg transdermal DAILY 28 days 11/09/22 transdermal patch #28 ea paroxetine HCl 40 mg tablet (Paxil) 40 mg PO DAILY 30 days #30 tabs 11/09/22 prazosin 2 mg capsule 4 mg PO BEDTIME 30 days #60 caps 11/09/22 quetiapine 100 mg tablet (Seroquel) 100 mg PO BEDTIME 30 days #30 tabs 11/09/22 Mental Status Exam Mental Status Exam Narrative: Appearance: casually groomed, good hygiene, in NAD Behavior: cooperative Psychomotor: no agitation or retardation noted Speech: clear, normal rate/rhythm/volume, spontaneous TP: linear TC: no signs of psychosis, hoping to step down to senior care feeling better Mood: euthymic Affect: congruent SI: none HI: none VH/AH: none Delusions: none Insight/judgment: poor x 2. memory/cog: alert, oriented x 3. Data Data Completed and Pending Completed studies during hospitalization [Text1]: 11/05/22 11/05/22 08:17 08:17 Estimat Average Glucose 97 Hemoglobin A1c % 5.0 Magnesium 2.0 Triglycerides 336 Cholesterol 236 LDL Cholesterol, Calc 133 HDL Cholesterol 36 Vitamin B12 569 Folate 10.1 TSH 2.58 Free T4 0.94 DS: Summary Hospital Course Hospital Course: per 11/04 admission note: Mr. Graves is a 31 year-old male with hx of cocaine and opioid use disorder who was self presented to [facility] reporting feeling dizzy, found to have rhabdo and RONA. He was admitted medically. Utox positive for cocaine, opioids, fentanyl and cannabinoids. During medical admission, pt reported suicide ideation. On the unit, pt reports he is feeling better physically. He also reports feeling less depressed and overwhelmed. He reports he was released from shelter on 10/28 and relapsed on cocaine and opioids. Pt reports he was worried about his health as he felt dizzy, lightheaded. He also reports feeling very anxious. He denies suicidal or homicidal ideation. he denies hx of auditory hallucinations. He reports hx of trauma. He reports using substances since he was 18 years-old. He reports paxil, prazosin, seroquel and gabapentin have been helpful but would like benzodiazepine for anxiety as nothing else has been effective. He reports he plans to step down to senior care and continue mostly outpatient psychiatric treatment. Past Psychiatric History: Inpt: [facility] more than 10 years ago OP: none Past medication trials: concerta, ritalin, adderall, seroquel, lithium, depakote, paxil, celexa, risperidone Denies hx of suicide attempts. Medical Evaluation Reviewed: Yes Precis: Mr. Graves is a 31 year-old male with hx of cocaine and opioid use disorder. He self presented to [facility] reporting feeling dizzy, lightheaded. Pt found to have rhabdo and RONA. On the unit, pt denies suicidal or homicidal ideation. he reports he recently was released from shelter and is struggling to adjust. He reports most debilitating symptoms is anxiety and asks if he can be prescribed benzodiazepine. We discussed risks of rx of benzodiazepines as he continues to work on recovery given risk of abuse or misuse. Pt agrees to continue paxil, prazosin, seroquel. One time dose of ativan while in hospital, but pt UNDERSTAN DS NO RX FOR BENZODIAZEPINES WILL BE GIVEN ON DISCHARGE. 11/04: Admit to M3, cv 15 minutes checks for safety. continue paxil, seroquel, prazosin. aftercare planning. GIVE NARCAN AT TIME OF DISCHARGE. 11/05:? continue current mgmt.? add seroquel 25 Q4H PRN anxiety. 11/06:? stable.? continue current mgmt.? awaiting bed at senior care. 11/07:? stable.? continue current mgmt.? awaiting bed at senior care. 11/08:? stable.? continue current mgmt.? awaiting bed at senior care. 11/09: stable, without complaint. discharged to senior care as per plan. Time Spent with Patient Time attestation: Total time managing care of this patient today ____ minutes. Time spent: Greater than 30 minutes Discharge Plan Discharge Anticipated Discharge Date/Time: 11/09/22 14:00 Patient Disposition: [facility] Discharge Diagnosis: Mood Disorder NOS Cocaine Use Disorder Opioid Use Disorder on Full Agonist Maintenance Referrals: [facility] [Other] - 11/12/22 10:30 am (In person Intake- Delaney Stover) [facility] [Other] - 12/09/22 10:00 am (Donal Menendez- provider- psychiatric assessment. ) [facility] [Other] - 01/06/23 12:30 pm (Medication Management -Donal Menendez) Physician,Unknown J [Primary Care Provider] - 1 Week Discharge Medications: New nicotine (polacrilex) 2 mg Gum 4 mg buccal Q1H PRN (Reason: Nicotine Cravings) 30 Days Qty: 360 0RF gabapentin 400 mg Capsule 800 mg PO BID 30 Days Qty: 120 0RF melatonin 3 mg Tablet 6 mg PO BEDTIME PRN (Reason: Insomnia) 30 Days Qty: 60 0RF nicotine 21 mg/24 hr Patch 24 Hour 21 mg transdermal DAILY 28 Days Qty: 28 0RF paroxetine HCl 10 mg tablet 10 mg PO DAILY 30 Days Qty: 30 0RF Rx Instructions: total 50 mg daily naloxone [Narcan] 4 mg/actuation spray,non-aerosol 4 mg intranasal Q2M PRN (Reason: opioid overdose) 1 Days Qty: 2 0RF Rx Instructions: spray 1 dose into ONE nostril; alternate nostrils w each dose until help arrives Continued methadone 10 mg/mL Concentrate 195 mg PO DAILY quetiapine [Seroquel] 100 mg Tablet 100 mg PO BEDTIME 30 Days Qty: 30 0RF docusate sodium 100 mg Capsule 100 mg PO BEDTIME PRN (Reason: Constipation) 30 Days Qty: 30 0RF paroxetine HCl [Paxil] 40 mg Tablet 40 mg PO DAILY 30 Days Qty: 30 0RF Rx Instructions: TOTAL OF 50MG DAILY prazosin 2 mg Capsule 4 mg PO BEDTIME 30 Days Qty: 60 0RF Rx Instructions: Take two tabs by mouth at bedtime Discontinued gabapentin 400 mg Tablet 800 mg PO BID Discharge Orders: Discharge Order (Routine); Ordered 11/09/22 Ordered By: Wellington Dao Diet: Advance to usual diet Activity on Discharge: As tolerated Stand Alone Forms: Patient Portal Discharge page, Community Support Care Plan Goals: remain safe and sober in the outpatient treatment setting Health Concerns: none Plan of Treatment: take medications as prescribed, attend appointments as scheduled Assessment: not at imminent risk of harm to self or others
[2022-11-09] MEDS: PARoxetine HCL 40 MG TABLET PO (09:53)
[2022-11-09] MEDS: Gabapentin 400 MG CAPSULE 800 MG PO (09:53)
[2022-11-09] MEDS: Nicotine 21 MG PATCH.TD24 TRANSDERMA (09:54)
[2022-11-09] MEDS: methADONE HCl 20 MG/2 ML ORAL.CONC 195 MG PO (09:57)
== END 2022-11-09 14:10 | disposition home or self-care (01) | DRG 753 ==
PROVIDERS: Clinical Nurse Specialist Psychiatric/Mental Health, Adult; Admitting Provider Psychiatry & Neurology Psychiatry; Visit Provider Psychiatry & Neurology Psychiatry
DX: F39 Unspecified mood [affective] disorder (principal); F11.20 Opioid dependence, uncomplicated; F14.20 Cocaine dependence, uncomplicated; F17.210 Nicotine dependence, cigarettes, uncomplicated; Z59.02 Unsheltered homelessness; Z71.6 Tobacco abuse counseling; Z88.0 Allergy status to penicillin; Z79.899 Other long term (current) drug therapy
CPT/HCPCS: 36415; 80061; 82607; 82746; 83036; 83735; 84439; 84443

== ENCOUNTER 2022-11-12 19:53 | Inpatient (IN) | payer OTHER, SELFPAY ==
--- NOTE | ~2022-11-12 | CT_ITS ---
EXAMINATION: CT ABDOMEN AND PELVIS WITHOUT CONTRAST CLINICAL INFORMATION: Left flank pain acute COMPARISON: None available. TECHNIQUE: Multidetector volumetric imaging was performed from the superior aspect of the liver through the pubic symphysis. Sagittal and coronal reformatted images were obtained on the technologist's workstation. This CT examination was performed using dose optimization techniques as appropriate, variously including the following: *Automated exposure control *Adjustment of mA and/or kV according to patient size (this includes techniques or standardized protocols for targeted exams where dose is matched to indication/reason for exam; i.e. extremities or head) *Use of iterative reconstruction technique DLP: 565 mGy-cm FINDINGS: LUNG BASES: The visualized lung bases are unremarkable. LIVER, GALLBLADDER, AND BILIARY TREE: The liver is normal in size, shape, and attenuation. No focal hepatic lesion or biliary ductal dilatation is present. The gallbladder is unremarkable with no evidence of radiopaque gallstones, gallbladder wall thickening, or obvious pericholecystic inflammatory changes. PANCREAS: Unremarkable. SPLEEN: Unremarkable. ADRENAL GLANDS: Unremarkable. KIDNEYS AND URETERS: The kidneys are normal in size, shape, and attenuation. No hydronephrosis, hydroureter, or calculi seen. No perinephric stranding. BLADDER: Unremarkable. GASTROINTESTINAL TRACT: Moderate colonic stool. Overall the bowel pattern is felt to be nonobstructing. The appendix is within normal limits. ABDOMINAL WALL: Herniation of omental fat in the region of the umbilicus LYMPH NODES: Normal. VASCULAR: Unremarkable. PELVIC VISCERA: Unremarkable. OSSEOUS STRUCTURES: Unremarkable. CT/CT abdomen pelvis wo IV con IMPRESSION: There is no evidence of renal or ureteral stone or obstruction. The bowel pattern is nonobstructing. Moderate colonic stool. No free fluid. Fleischner guidelines were followed.
[2022-11-12 20:13] VITALS: BP 111/70; PULSE 75; RESP 16; TEMP 36.8; O2SAT 97; BMI 28.7
--- NOTE | 2022-11-12 20:14 | ECG_ITS ---
Test Reason : flank pain Blood Pressure : / mmHG Vent. Rate : 077 BPM Atrial Rate : 077 BPM P-R Int : 138 ms QRS Dur : 074 ms QT Int : 402 ms P-R-T Axes : 043 050 043 degrees QTc Int : 454 ms Normal sinus rhythm Normal ECG When compared with ECG of 30-OCT-2022 15:29, Nonspecific T wave abnormality now evident in Anterior leads Referred By: Melissa Tom Electronically Signed By:RICARDO DEL CASTILLO MD
--- NOTE | 2022-11-12 20:14 | ED_ITS ---
HPI - General Adult General Chief complaint: General Medical Stated complaint: missed methadone dose, flank pain Time Seen by Provider: 11/12/22 23:58 Source: patient Mode of arrival: ambulatory Limitations: no limitations History of Present Illness HPI narrative: 31-year-old male presents with left-sided flank pain. The pain is constant. Does not radiate. Pain is an 8/10. Patient describes as a sharp pain. There is no urinary frequency, urgency or dysuria. Denies any nausea, vomiting, diarrhea. There is no clear relieving or exacerbating features. There has been no prior treatment. This is new in onset. He destroyed denies any falls, rashes or injuries. Related Data Home Medications Medication Instructions Recorded Confirmed methadone 10 mg/mL oral concentrate 195 mg PO DAILY 12/30/21 11/13/22 Previous Rx's Medication Instructions Recorded docusate sodium 100 mg capsule 100 mg PO BEDTIME PRN Constipation 11/09/22 30 days #30 caps gabapentin 400 mg capsule 800 mg PO BID 30 days #120 caps 11/09/22 melatonin 3 mg tablet 6 mg PO BEDTIME PRN Insomnia 30 11/09/22 days #60 tabs naloxone 4 mg/actuation nasal 4 mg intranasal Q2M PRN opioid 11/09/22 spray (Narcan) overdose 1 day #2 ea nicotine (polacrilex) 2 mg gum 4 mg buccal Q1H PRN Nicotine 11/09/22 Cravings 30 days #360 ea nicotine 21 mg/24 hr daily 21 mg transdermal DAILY 28 days 11/09/22 transdermal patch #28 ea paroxetine HCl 10 mg tablet 10 mg PO DAILY 30 days #30 tabs 11/09/22 paroxetine HCl 40 mg tablet (Paxil) 40 mg PO DAILY 30 days #30 tabs 11/09/22 prazosin 2 mg capsule 4 mg PO BEDTIME 30 days #60 caps 11/09/22 quetiapine 100 mg tablet (Seroquel) 100 mg PO BEDTIME 30 days #30 tabs 11/09/22 Allergies Allergy/AdvReac Type Severity Reaction Status Date / Time amoxicillin Allergy Hives Verified 10/30/22 13:55 Penicillins [PCN] Allergy Hives Verified 10/30/22 13:55 seafood Allergy Difficulty Verified 11/13/22 10:11 Breathing Review of Systems Review of Systems: CONSTITUTIONAL: Denies weight loss, fever and chills. HEENT: Denies changes in vision and hearing. RESPIRATORY: Denies SOB and cough. CV: Denies palpitations no CP. GI: Denies abdominal pain, nausea, vomiting and diarrhea. : Denies dysuria and urinary frequency. MSK: Denies myalgia and joint pain. Positive left flank pain SKIN: Denies rash and pruritus. NEUROLOGICAL: Denies headache and syncope. PSYCHIATRIC: Denies recent changes in mood. Denies anxiety and depression. All other ROS are negative unless in HPI PMFSH Past Medical History Medical History Mood disorder Polysubstance (including opioids) dependence, daily use Social History Social History Household Members: None Household Members Other:: homeless Housing: Homeless Do you presently have visiting nurse or other home services: No Alcohol intake: current Alcohol intake frequency: does not drink Patient Tobacco Use Status: Current everyday Tobacco user Tobacco use type: Cigarette Cigarette Packs Per Day: 1.5 Cigarettes Per Day: 30.0 Smoked in Last 30 Days: Yes Use of substances other than those prescribed or required for medical reasons: Yes Substance Use Type: Crack/Cocaine Substance Use Frequency: Chronic Longstanding Advance Directives: No Advance Directives Information Provided: Yes Healthcare Proxy: No Guardian: No service: No Current occupational status: unemployed Sexual orientation: Straight/Heterosexual Physical Exam ED Vital Signs: Vital Signs - 24 hr 11/13/22 10:46 11/13/22 18:37 11/13/22 20:32 Temperature 97.6 F 98 F 97.9 F Pulse Rate 72 55 58 Respiratory Rate 16 18 18 Blood Pressure 125/77 115/67 105/62 Pulse Oximetry 96 99 97 Oxygen Delivery Method Room Air Room Air Room Air 11/14/22 04:37 Temperature 97.3 F Pulse Rate 75 Respiratory Rate 18 Blood Pressure 101/42 L Pulse Oximetry 97 Oxygen Delivery Method Room Air BMI result Body Mass Index 28.7 GEN: Well developed, no acute distress, alert, oriented HEENT: Normocephalic, atraumatic, normal external ears, nose appears normal, no oropharyngeal edema or exudates Eyes: Normal to appearance Neck: Supple, no lymphadenopathy Respiratory: Talks in complete sentences, no respiratory distress, clear to auscultation bilaterally Cardiovascular: Regular rate and rhythm, no murmurs rubs or gallops Abdomen: Soft, nontender, nondistended, no guarding, no rebound Back: No CVA tenderness Extremities: No clubbing cyanosis or edema Neurologic: No focal neurologic deficits, cranial nerves 2-12 intact, strength is 5/5 bilaterally Skin: No rash Course Course Course Narrative: RME performed by Melissa Tom PA-C. Patient is a 31 year old assigned male at presenting to the emergency department with left sided back pain. Labs ordered. Patient requested his methadone dose as well. Patient placed back in the waiting room pending room availability and results. Reevaluation(s) Reevaluation #1: Workup is complete. There is no obvious evidence for the etiology of his symptoms. Likely musculoskeletal. Patient can take Tylenol and ibuprofen as needed for pain relief. Will prescribe patient a mild muscle relaxer. He will follow up with his regular provider as needed. Time: 00:48 Reevaluation #2: Patient is now requesting care team evaluation for cocaine abuse. Patient replaced an physician observation pending care team evaluation Time: 00:48 Reevaluation #3: Patient seen by the care team and will be an inpatient bed search Time: 19:00 Medications Administered Generic Name Dose Route Start Last Admin Trade Name Freq PRN Reason Stop Dose Admin Gabapentin 800 mg 11/13/22 11:45 11/14/22 08:52 Gabapentin 400 Mg Capsule PO 800 mg BID BESSIE Administration Methadone HCl 195 mg 11/13/22 11:45 11/14/22 08:53 Methadone Hcl 20 Mg/2 Ml Oral.Conc PO 195 mg DAILY BESSIE Administration Nicotine 21 mg 11/13/22 11:45 11/14/22 08:52 Nicotine 21 Mg Patch.Td24 TRANSDERMA 21 mg DAILY BESSIE Administration Nicotine Polacrilex 4 mg 11/13/22 11:38 11/14/22 09:00 Nicotine Polacrilex 2 Mg Gum BUCCAL 4 mg Q1H PRN Administration Nicotine Cravings Paroxetine HCl 10 mg 11/13/22 11:45 11/14/22 08:52 Paroxetine Hcl 10 Mg Tablet PO 10 mg DAILY BESSIE Administration Paroxetine HCl 40 mg 11/13/22 11:45 11/14/22 08:52 Paroxetine Hcl 40 Mg Tablet PO 40 mg DAILY BESSIE Administration Prazosin HCl 4 mg 11/13/22 21:00 11/13/22 20:31 Prazosin Hcl 1 Mg Capsule PO 4 mg BEDTIME BESSIE Administration Protocol Quetiapine Fumarate 100 mg 11/13/22 21:00 11/13/22 20:31 Quetiapine Fumarate 100 Mg Tablet PO 100 mg BEDTIME BESSIE Administration Discontinued Medications Generic Name Dose Route Start Last Admin Trade Name Cameronq PRN Reason Stop Dose Admin Ketorolac Tromethamine 30 mg 11/13/22 00:16 11/13/22 00:50 Ketorolac Tromethamine 30 Mg/Ml Vial IM 11/13/22 00:17 30 mg ONCE ONE Administration Medical Decision Making Medical Decision Making [facility] Narrative: Patient presents with left-sided flank pain. He denies any urinary complaints. Examination is unremarkable. Patient isn't able to void for us at this time. Will order CT scan to rule out renal colic and other possible intra-abdominal pathology. Patient will be given Toradol for pain. 09:00 11/14/2022 patient has stable vitals with mood disorder awaiting for placement Differential Diagnosis Differential Diagnoses: The differential diagnosis associated with the presentation includes (Renal colic, UTI, pyelonephritis, IBS, IBD, colitis, d iverticulitis, musculoskeletal pain, radiculopathy) Lab Data [facility] Lab Attestation statement: I reviewed the patient's lab results. 11/12/22 20:58 11/12/22 20:58 Labs: Lab Results 11/12/22 11/12/22 11/12/22 Range/Units 20:58 20:58 20:58 WBC 9.5 (4.8-10.8) X10*3/uL RBC 4.12 L (4.60-5.80) X10*6/uL Hgb 12.0 L (14.0-18.0) g/dl Hct 36.1 L (42.0-52.0) % MCV 87.6 (80.0-98.0) fL MCH 29.1 (27.0-33.0) pg MCHC 33.2 (31.0-36.0) g/dl RDW 13.7 (11.0-16.0) % Plt Count 279 D (160-400) X10*3/uL MPV 10.1 (9.4-12.4) fL Immature Gran % (Auto) 0.2 (0.0-0.4) % Neut % (Auto) 58.4 (45-73) % Lymph % (Auto) 26.5 (20-40) % Leake % (Auto) 12.0 H (2-11) % Eos % (Auto) 2.2 (0-4) % Baso % (Auto) 0.7 (0-2) % Lymph # (Auto) 2.5 (1.2-4.9) X10*3/uL Leake # (Auto) 1.1 (0.1-1.2) X10*3/uL Eos # (Auto) 0.2 (0.0-0.4) X10*3/uL Baso # (Auto) 0.1 (0.0-0.2) X10*3/uL Abs Immat Gran (auto) 0.02 (0.00-0.03) X10*3/uL Absolute Neuts (auto) 5.5 (2.0-8.3) x10*3/uL Absolute Nucleated RBC 0.000 (0.0-0.012) X10*3/uL Nucleated RBC % (auto) 0.0 (0.0-0.2) /100WBC Sodium 140 (135-145) mmol/L Potassium 3.9 (3.3-5.1) mmol/L Chloride 104 (96-108) mmol/L Carbon Dioxide 23 (22-29) mmol/L Anion Gap 17 (12-20) BUN 23 H (9-16) mg/dL Creatinine 1.38 (0.5-1.4) mg/dL Estim Creat Clear Calc 87.8 Estimated GFR > 60 Random Glucose 105 (60-115) mg/dL Calcium 9.8 D (8.4-10.2) mg/dL Magnesium 2.7 H (1.6-2.6) mg/dL Total Bilirubin 0.9 (0.0-1.0) mg/dL AST 37 (5-37) U/L ALT 46 H (0-40) U/L Alkaline Phosphatase 68 (39-117) U/L Troponin I High Sens < 2.7 D (<3.5-35.0) ng/L Total Protein 8.0 (6.5-8.0) g/dL Albumin 5.0 (3.5-5.0) g/dL Urine Color Urine Appearance Urine pH (5.0-9.0) Ur Specific Bonneau (1.005-1.025) Urine Protein (Neg-Trace) mg/dL Urine Glucose (UA) (Negative) mg/dL Urine Ketones (Negative) mg/dL Urine Blood (Negative) Urine Nitrite (Negative) Ur Leukocyte Esterase (Negative) Urine RBC (0-2) /HPF Urine WBC (0-5) /HPF Ur Squamous Epith Cells (0-2) /HPF Other Crystals Urine Bacteria (None Seen) Hyaline Casts (0-2) /LPF Urine Opiates Screen (Not Detect) Urine Fentanyl Screen (Not Detect) Ur Barbiturates Screen (Not Detect) Ur Phencyclidine Scrn (Not Detect) Ur Amphetamines Screen (Not Detect) U Benzodiazepines Scrn (Not Detect) Urine Cocaine Screen (Not Detect) U Marijuana (THC) Screen (Not Detect) Ethyl Alcohol < 10 mg/dL COVID-19 (JAMIE) (Negative) COVID-19 Clin Com 11/13/22 11/13/22 11/13/22 Range/Units 10:14 10:14 10:14 WBC (4.8-10.8) X10*3/uL RBC (4.60-5.80) X10*6/uL Hgb (14.0-18.0) g/dl Hct (42.0-52.0) % MCV (80.0-98.0) fL MCH (27.0-33.0) pg MCHC (31.0-36.0) g/dl RDW (11.0-16.0) % Plt Count (160-400) X10*3/uL MPV (9.4-12.4) fL Immature Gran % (Auto) (0.0-0.4) % Neut % (Auto) (45-73) % Lymph % (Auto) (20-40) % Leake % (Auto) (2-11) % Eos % (Auto) (0-4) % Baso % (Auto) (0-2) % Lymph # (Auto) (1.2-4.9) X10*3/uL Leake # (Auto) (0.1-1.2) X10*3/uL Eos # (Auto) (0.0-0.4) X10*3/uL Baso # (Auto) (0.0-0.2) X10*3/uL Abs Immat Gran (auto) (0.00-0.03) X10*3/uL Absolute Neuts (auto) (2.0-8.3) x10*3/uL Absolute Nucleated RBC (0.0-0.012) X10*3/uL Nucleated RBC % (auto) (0.0-0.2) /100WBC Sodium (135-145) mmol/L Potassium (3.3-5.1) mmol/L Chloride (96-108) mmol/L Carbon Dioxide (22-29) mmol/L Anion Gap (12-20) BUN (9-16) mg/dL Creatinine (0.5-1.4) mg/dL Estim Creat Clear Calc Estimated GFR Random Glucose (60-115) mg/dL Calcium (8.4-10.2) mg/dL Magnesium (1.6-2.6) mg/dL Total Bilirubin (0.0-1.0) mg/dL AST (5-37) U/L ALT (0-40) U/L Alkaline Phosphatase (39-117) U/L Troponin I High Sens (<3.5-35.0) ng/L Total Protein (6.5-8.0) g/dL Albumin (3.5-5.0) g/dL Urine Color Dark Yellow Urine Appearance Turbid Urine pH 5.5 (5.0-9.0) Ur Specific Bonneau >= 1.030 H (1.005-1.025) Urine Protein 100 (2+) H (Neg-Trace) mg/dL Urine Glucose (UA) Negative (Negative) mg/dL Urine Ketones Trace (Negative) mg/dL Urine Blood Negative (Negative) Urine Nitrite Negative (Negative) Ur Leukocyte Esterase Negative (Negative) Urine RBC 0-2 (0-2) /HPF Urine WBC 6-10 H (0-5) /HPF Ur Squamous Epith Cells 11-20 (0-2) /HPF Other Crystals Present Urine Bacteria 1+ (None Seen) Hyaline Casts >20 (0-2) /LPF Urine Opiates Screen POSITIVE H (Not Detect) Urine Fentanyl Screen POSITIVE H (Not Detect) Ur Barbiturates Screen Not Detected (Not Detect) Ur Phencyclidine Scrn Not Detected (Not Detect) Ur Amphetamines Screen Not Detected (Not Detect) U Benzodiazepines Scrn Not Detected (Not Detect) Urine Cocaine Screen POSITIVE H (Not Detect) U Marijuana (THC) Screen POSITIVE H (Not Detect) Ethyl Alcohol mg/dL COVID-19 (JAMIE) Negative (Negative) COVID-19 Clin Com See Note Independent Interpretation I performed an independent interpretation of an: CT Scan (No intra-abdominal pathology) Radiology Impression Discussion of test interpretation with radiology: I have reviewed the radiologist's reading. ( CT/CT abdomen pelvis wo IV con IMPRESSION: There is no evidence of renal or ureteral stone or obstruction. The bowel pattern is nonobstructing. Moderate colonic stool. No free fluid. ) Prescription Management I considered prescription management with: Pain Medication Discharge Plan Discharge Clinical Impression: Acute left flank pain, Cocaine use disorder, moderate, dependence Patient Disposition: Still a Patient Prescriptions: No Action methadone 10 mg/mL Concentrate 195 mg PO DAILY nicotine (polacrilex) 2 mg Gum 4 mg buccal Q1H PRN (Reason: Nicotine Cravings) 30 Days Qty: 360 0RF gabapentin 400 mg Capsule 800 mg PO BID 30 Days Qty: 120 0RF melatonin 3 mg Tablet 6 mg PO BEDTIME PRN (Reason: Insomnia) 30 Days Qty: 60 0RF nicotine 21 mg/24 hr Patch 24 Hour 21 mg transdermal DAILY 28 Days Qty: 28 0RF quetiapine [Seroquel] 100 mg Tablet 100 mg PO BEDTIME 30 Days Qty: 30 0RF docusate sodium 100 mg Capsule 100 mg PO BEDTIME PRN (Reason: Constipation) 30 Days Qty: 30 0RF paroxetine HCl [Paxil] 40 mg Tablet 40 mg PO DAILY 30 Days Qty: 30 0RF Rx Instructions: TOTAL OF 50MG DAILY prazosin 2 mg Capsule 4 mg PO BEDTIME 30 Days Qty: 60 0RF Rx Instructions: Take two tabs by mouth at bedtime paroxetine HCl 10 mg tablet 10 mg PO DAILY 30 Days Qty: 30 0RF Rx Instructions: total 50 mg daily naloxone [Narcan] 4 mg/actuation spray,non-aerosol 4 mg intranasal Q2M PRN (Reason: opioid overdose) 1 Days Qty: 2 0RF Rx Instructions: spray 1 dose into ONE nostril; alternate nostrils w each dose until help a rrives
[2022-11-12 21:02] LABS: MANUAL DIFF FLAG NO
[2022-11-12 21:03] LABS: Basophils Absolute Auto 0.1 X10*3/uL (0.0-0.2); Basophils Percent Auto 0.7 % (0-2); Eosinophils Absolute Auto 0.2 X10*3/uL (0.0-0.4); Eosinophils Percent Auto 2.2 % (0-4); Hematocrit 36.1 % (42.0-52.0); Imm Gran Abs Auto 0.02 X10*3/uL (0.00-0.03); Imm Gran Pct Auto 0.2 % (0.0-0.4); Lymphocytes Absolute Auto 2.5 X10*3/uL (1.2-4.9); Lymphocytes Percent Auto 26.5 % (20-40); Mean Corpuscular HGB Conc 33.2 g/dl (31.0-36.0); Mean Corpuscular Hemoglobin 29.1 pg (27.0-33.0); Mean Corpuscular Volume 87.6 fL (80.0-98.0); Mean Platelet Volume 10.1 fL (9.4-12.4); Monocytes Absolute Auto 1.1 X10*3/uL (0.1-1.2); Neutrophils Absolute Auto 5.5 x10*3/uL (2.0-8.3); Neutrophils Percent Auto 58.4 % (45-73); Platelet Count 279 X10*3/uL (160-400); Red Blood Count 4.12 X10*6/uL (4.60-5.80); Red Cell Distribution Width 13.7 % (11.0-16.0); White Blood Count 9.5 X10*3/uL (4.8-10.8)
--- NOTE | 2022-11-12 21:03 | MHC.EDTECH ---
PT EKG TAKEN AND WAS READ BY PROVIDER ,BLOOD DRAWN AND SENT TO LAB ,PT UNABLE TO GIVE URINE SAMPLE AT THIS TIME .
[2022-11-12 21:22] LABS: Alanine Aminotransferase 46 U/L (0-40); Alkaline Phosphatase 68 U/L (39-117); Anion Gap 17 (12-20); Aspartate Amino Transferase 37 U/L (5-37); Bilirubin Total 0.9 mg/dL (0.0-1.0); Blood Urea Nitrogen 23 mg/dL (9-16); Calcium 9.8 mg/dL (8.4-10.2); Carbon Dioxide 23 mmol/L (22-29); Chloride 104 mmol/L (96-108); Creatinine Clr Calc Pharmacy 87.8; Estimated Glomerular Filt Rate > 60; Glucose Random 105 mg/dL (60-115); Magnesium 2.7 mg/dL (1.6-2.6); Potassium 3.9 mmol/L (3.3-5.1); Sodium 140 mmol/L (135-145)
[2022-11-12 21:47] LABS: Troponin-I High Sensitivity < 2.7 ng/L (<3.5-35.0)
[2022-11-13 00:32] VITALS: BP 94/47; PULSE 53; RESP 15; TEMP 37.1; O2SAT 99
[2022-11-13] MEDS: Ketorolac Tromethamine 30 MG/ML VIAL IM (00:50)
--- NOTE | 2022-11-13 00:53 | PC.NURSE ---
AOx4 resting at the bedside. Req care team referral. MD notified. Unable to provide urine sample at this time. Water provided.
[2022-11-13 01:09] LABS: Ethanol < 10 mg/dL
[2022-11-13 03:47] VITALS: RESP 14
--- NOTE | 2022-11-13 03:47 | PC.NURSE ---
Pt sleeping in no apparent distress. Breaths are even regular and unlabored. Pending urine sample. Will continue to monitor.
--- NOTE | 2022-11-13 08:30 | PC.NURSE ---
assumed care of this pt at 0700. pt is sleeping soundly, in no apparent distress. rr even/unlabored. awaiting urine sample. wctm
--- NOTE | 2022-11-13 09:46 | MHC.RECOVRN ---
Addendum entered by Lin Al RN 11/13/22 15:07: Reviewed with patient, detox bedsearch exhausted. Patient reports thoughts of self harm/SI, CM aware. Addendum entered by Lin Al RN 11/13/22 13:46: Detox bedsearch exhausted, [facility] does not offer detox from opiates for patient on MTD. To review outcome with patient. Addendum entered by Lin Al RN 11/13/22 13:06: No male detox beds [facility], [facility], [facility], [facility]. This movie writer reviewed with patient the status of male detox bedsearch, reviewed [facility] reports calling back due to likely discharges. Patient verbalized understanding, reports willingness to go to any detox with open male beds. This movie writer to follow up with status of discharges at [facility]. Original Note: This movie writer met with patient, patient was alert, in bed, watching t.v. Patient requesting detox. Patient reports receives daily dose of MTD at [facility]. Patient reports since 10/25/22 has been using heroin, IV, daily 1 bundle, ARISTIDES, daily, $80 worth. Patient seeking detox treatment. This movie writer verified MTD dose, faxed to pharmacy. This movie writer reviewed detox bedsearch process, pt verbalized understanding. ATS referral sent to facilities.
--- NOTE | 2022-11-13 10:03 | HE.PHANOTE ---
re methadone verification form received. pt uses [facility] on [address]. dose is 195mg, last administered 11/11 [facility]
--- NOTE | 2022-11-13 10:16 | PC.NURSE ---
Pt sent to the Pod after being seen in the Main ED for Flank pain. Pt reporting using 1 Bundle of Heroin yesterday. He reports not being dosed yesterday at his clinic, [facility]. He is asking for a Detox, and would like to remain on Methadone. EM from Recovery Team has verified the Methadone dose, and is searching for a detox bed at this time. Pt denies SI, HI, and AVH.
[2022-11-13 10:41] LABS: Appearance Urine Turbid; Color Urine Dark Yellow; Glucose Urine UA Negative (Negative); Leukocyte Esterase Urine Negative (Negative); Nitrite Urine Negative (Negative); PH 5.5 (5.0-9.0); Specific Gravity - Urine >= 1.030 (1.005-1.025); UMIC TRIGGER UACC YES; Urine Blood Negative (Negative); Urine Ketones Trace mg/dL (Negative); Urine Protein 100 (2+) mg/dL (Neg-Trace)
[2022-11-13 10:46] VITALS: BP 125/77; PULSE 72; RESP 16; TEMP 36.4; O2SAT 96
[2022-11-13 10:46] LABS: IDNOW Serial# BCCEAD1C
[2022-11-13 10:47] LABS: COVID-19 Test Negative (Negative)
[2022-11-13 10:48] LABS: Amphetamine Screen Urine Not Detected (Not Detect); Barbiturates, Urine Not Detected (Not Detect); Benzodiazepines Screen Urine Not Detected (Not Detect); Cannabinoid Screen Urine POSITIVE (Not Detect); Cocaine Screen Urine POSITIVE (Not Detect); Fentanyl, urine POSITIVE (Not Detect); Opiate Screen Urine POSITIVE (Not Detect); Phencyclidine Screen Urine Not Detected (Not Detect)
[2022-11-13 11:14] LABS: Bacteria Urine 1+ (None Seen); Hyaline Casts Urine >20 /LPF (0-2); Other Crystals Urine Present; RBC Urine 0-2 /HPF (0-2); UACC Culture Trigger YES
[2022-11-13] MEDS: Gabapentin 400 MG CAPSULE 800 MG PO ×2 (12:38→20:30)
[2022-11-13] MEDS: PARoxetine HCL 10 MG TABLET PO (12:39)
[2022-11-13] MEDS: Nicotine 21 MG PATCH.TD24 TRANSDERMA (12:40)
[2022-11-13] MEDS: methADONE HCl 20 MG/2 ML ORAL.CONC 195 MG PO (12:40)
[2022-11-13] MEDS: PARoxetine HCL 40 MG TABLET PO (12:53)
--- NOTE | 2022-11-13 16:47 | PC.NURSE ---
Pt medicated this am. Spent the day watching TV in the [place]. Pt laying on couch with a pillow. No s/s of distress. No dangerous behaviors noted. Ate meals. No complaints.
[2022-11-13 18:37] VITALS: BP 115/67; PULSE 55; RESP 18; TEMP 36.6; O2SAT 99
[2022-11-13] MEDS: QUEtiapine Fumarate 100 MG TABLET PO (20:31)
[2022-11-13] MEDS: Prazosin HCL 1 MG CAPSULE 4 MG PO (20:31)
[2022-11-13 20:32] VITALS: BP 105/62; PULSE 58; RESP 18; TEMP 36.6; O2SAT 97
--- NOTE | 2022-11-14 04:18 | PC.NURSE ---
Patient slept through whole evening until now, currently in bed resting and snacking, no distress observed/reported, asymptomatic of withdrawal, medication compliant, disposition per care team is voluntary inpatient bed search, no behavior concerns, VSS, will continue to monitor.
[2022-11-14 04:37] VITALS: BP 101/42; PULSE 75; RESP 18; TEMP 36.3; O2SAT 97
[2022-11-14] MEDS: Nicotine 21 MG PATCH.TD24 TRANSDERMA (08:52)
[2022-11-14] MEDS: Gabapentin 400 MG CAPSULE 800 MG PO ×2 (08:52→20:52)
[2022-11-14] MEDS: PARoxetine HCL 40 MG TABLET PO (08:52)
[2022-11-14] MEDS: PARoxetine HCL 10 MG TABLET PO (08:52)
[2022-11-14] MEDS: methADONE HCl 20 MG/2 ML ORAL.CONC 195 MG PO (08:53)
[2022-11-14] MEDS: Nicotine Polacrilex 2 MG GUM 4 MG BUCCAL ×3 (09:00→19:34)
[2022-11-14 09:19] VITALS: BP 102/55; PULSE 63; RESP 16; TEMP 36.7; O2SAT 98
--- NOTE | 2022-11-14 12:59 | PC.NURSE ---
Pt in room, awake, watching TV. Shower offered. Pt refused.
--- NOTE | 2022-11-14 19:13 | PC.NURSE ---
report received from Naty, RN Pt resting comfortably on bed in room eating, pt offers no complaints at this time
[2022-11-14 20:23] VITALS: BP 110/59; PULSE 65; RESP 16; TEMP 36.7; O2SAT 97
[2022-11-14] MEDS: Prazosin HCL 1 MG CAPSULE 4 MG PO (20:52)
[2022-11-14] MEDS: QUEtiapine Fumarate 100 MG TABLET PO (20:52)
--- NOTE | 2022-11-14 21:14 | PC.NURSE ---
pt medicated per MAR, took medications with no issue. now resting comfortably, respirations even and unlabored, no apparent distress
--- NOTE | 2022-11-15 03:28 | PC.NURSE ---
pt slept for a couple hours, then came to nurses station requesting food/drink, provided to patient. pt now sleeping, respirations even and unlabored, no apparent distress continue plan of care for inpatient admission bed search
[2022-11-15 04:51] VITALS: BP 113/69; PULSE 77; RESP 16; TEMP 36.5; O2SAT 96
--- NOTE | 2022-11-15 05:29 | PC.NURSE ---
pt slept throughout the night, occasionally waking for food. Pt calm and cooperative with staff, no issues overnight. Safety maintained plan of care for inpatient admission
--- NOTE | 2022-11-15 07:14 | PC.NURSE ---
patient appears to remain asleep[ at p;resent respirations are even and unlabored patient appears in no distress
[2022-11-15] MEDS: methADONE HCl 20 MG/2 ML ORAL.CONC 195 MG PO (09:44)
[2022-11-15] MEDS: PARoxetine HCL 10 MG TABLET PO (09:44)
[2022-11-15] MEDS: PARoxetine HCL 40 MG TABLET PO (09:44)
[2022-11-15] MEDS: Gabapentin 400 MG CAPSULE 800 MG PO ×2 (09:44→22:15)
[2022-11-15] MEDS: Naloxone HCl Nasal 4 MG SPRAY NOSTRILALT (09:52)
[2022-11-15] MEDS: Nicotine Polacrilex 2 MG GUM 4 MG BUCCAL ×4 (12:23→22:15)
--- NOTE | 2022-11-15 14:39 | PC.NURSE ---
Nurse to nurse given to m3 staff
[2022-11-15 15:50] VITALS: BP 125/83; PULSE 65; RESP 16; TEMP 36.3; O2SAT 99
[2022-11-15] MEDS: Nicotine 21 MG PATCH.TD24 TRANSDERMA (16:24)
--- NOTE | 2022-11-15 17:19 | PC.NURSE ---
Jovany was readmitted to at 1545 from [facility] on [facility] for treatment of unspecified mood disorder, and polysubstance use disorder.? Patient was discharged recently from , represented at the ED c/o flank pain. After medical clearance he reported SI in the context of the stressors of homelessness, noncompliance with rxd meds, and drug use ( cocaine, heroin, fentanyl). He reportedly stopped taking his meds 2 days prior to presenting to ED. Jovany is alert, fully oriented, pleasant and cooperative with admission process. Mood is depressed, affect is subdued. Pt denies Auditory, visual, tactile or other hallucinations. No psychosis noted or reported Thought Process linear and organized. Jovany denies ideation, plan or intent to harm himself or others Appetite is good with no recent weight changes. He reportedly falls asleep but has trouble staying asleep. Focus is fair Pt denies any medical Issues?or Physical complaint. Pt is placed on q 15 minute Safety Checks
[2022-11-15 22:15] VITALS: BP 121/73; PULSE 69; TEMP 36.6; O2SAT 99
[2022-11-15] MEDS: Acetaminophen 325 MG TABLET 650 MG PO (22:15)
[2022-11-15] MEDS: Melatonin 3 MG TABLET 6 MG PO (22:15)
[2022-11-15] MEDS: QUEtiapine Fumarate 100 MG TABLET PO (22:15)
[2022-11-15] MEDS: Prazosin HCL 1 MG CAPSULE 4 MG PO (22:15)
[2022-11-15] MEDS: NaPROXEN 500 MG TABLET PO (22:38)
[2022-11-16] MEDS: Nicotine 21 MG PATCH.TD24 TRANSDERMA (08:36)
[2022-11-16] MEDS: PARoxetine HCL 40 MG TABLET PO (08:36)
[2022-11-16] MEDS: Gabapentin 400 MG CAPSULE 800 MG PO ×2 (08:36→21:14)
[2022-11-16] MEDS: PARoxetine HCL 10 MG TABLET PO (08:36)
[2022-11-16 08:57] VITALS: BP 117/57; PULSE 64; RESP 18; TEMP 36.6; O2SAT 97
[2022-11-16] MEDS: methADONE HCl 20 MG/2 ML ORAL.CONC 195 MG PO (09:16)
[2022-11-16] MEDS: Nicotine Polacrilex 2 MG GUM 4 MG BUCCAL ×4 (09:24→20:44)
[2022-11-16 09:26] LABS: Alanine Aminotransferase 26 U/L (0-40); Albumin Level 3.7 g/dL (3.5-5.0); Alkaline Phosphatase 74 U/L (39-117); Anion Gap 10 (12-20); Aspartate Amino Transferase 15 U/L (5-37); Bilirubin Total 0.1 mg/dL (0.0-1.0); Blood Urea Nitrogen 21 mg/dL (9-16); Carbon Dioxide 27 mmol/L (22-29); Chloride 105 mmol/L (96-108); Cholesterol 307 mg/dL; Creatinine Clr Calc Pharmacy 173.2; Estimated Glomerular Filt Rate > 60; Glucose Fasting 102 mg/dL (60-99); HDL Cholesterol 31 mg/dL; Potassium 4.4 mmol/L (3.3-5.1); Sodium 138 mmol/L (135-145); Total Protein 6.2 g/dL (6.5-8.0); Triglycerides 652 mg/dL
[2022-11-16 09:28] LABS: Estimated Average Glucose 97 mg/dL
[2022-11-16] MEDS: Acetaminophen 325 MG TABLET 650 MG PO (13:20)
--- NOTE | 2022-11-16 13:47 | HO.PSYADMNOT ---
HPI Date of Service: 11/16/22 Chief Complaint: SI HPI Narrative: pt discharged from [facility] last week and was out for three days before re-presenting to the ED c/o SI. he had relapsed to substance use as well. on admission interview with inpatient MD pt explained that shelters are full of drugs (he discharged to residential last week), that brought back his PTSD Sx/anxiety. he had physical manifestations, such as finding it difficult to breathe, then feeling depressed and anxious, having a hard time thinking and making rational decisions. he is interested in CSS at this admission. Past Psychiatric History: Inpt: Doug Rosenberg more than 10 years ago OP: none Past medication trials: concerta, ritalin, adderall, seroquel, lithium, depakote, paxil, celexa, risperidone Denies hx of suicide attempts. Medical Evaluation Reviewed: Yes [facility] Medical History Mood disorder Polysubstance (including opioids) dependence, daily use Diagnostics Vital Signs (24Hr): Vital Signs - 24 hr 11/15/22 15:50 11/15/22 22:15 11/16/22 08:57 Temperature 97.4 F 97.8 F 97.8 F Pulse Rate 65 69 64 Respiratory Rate 16 18 Blood Pressure 125/83 121/73 117/57 L Pulse Oximetry 99 99 97 Oxygen Delivery Method Room Air Room Air BMI result Body Mass Index 28.7 Labs 11/12/22 20:58 11/16/22 08:51 Labs: Laboratory Results - last 48 hr 11/16/22 11/16/22 08:51 08:51 Sodium 138 Potassium 4.4 Chloride 105 Carbon Dioxide 27 Anion Gap 10 L BUN 21 H Creatinine 0.70 Estim Creat Clear Calc 173.2 Estimated GFR > 60 Fasting Glucose 102 H Estimat Average Glucose 97 Hemoglobin A1c % 5.0 Calcium 9.0 D Total Bilirubin 0.1 AST 15 ALT 26 Alkaline Phosphatase 74 Total Protein 6.2 L Albumin 3.7 Triglycerides 652 Cholesterol 307 LDL Cholesterol, Calc TNP HDL Cholesterol 31 Imaging Radiology Impressions: ITS Impressions Abdomen/Pelvis CT 11/13/22 00:32 IMPRESSION: There is no evidence of renal or ureteral stone or obstruction. The bowel pattern is nonobstructing. Moderate colonic stool. No free fluid. Fleischner guidelines were followed. Meds/Allergies Meds Home Medications Medication Instructions Recorded Confirmed Type methadone 10 mg/mL oral concentrate 195 mg PO DAILY 12/30/21 11/13/22 History Allergies Allergies Allergy/AdvReac Type Severity Reaction Status Date / Time amoxicillin Allergy Hives Verified 10/30/22 13:55 Penicillins [PCN] Allergy Hives Verified 10/30/22 13:55 seafood Allergy Difficulty Verified 11/13/22 10:11 Breathing Mental Status Exam Mental Status Exam Narrative: Appearance: casually groomed, good hygiene, in NAD Behavior: cooperative Psychomotor: no agitation or retardation noted Speech: clear, normal rate/rhythm/volume, spontaneous TP: linear TC: no signs of psychosis, hoping to DC [facility] Mood: blah Affect: flexible, non-labile. SI: none HI: none expressed VH/AH: none expressed Delusions: none expressed Insight/judgment: poor x 2. memory/cog: alert, oriented x 3. Assessment & Plan Assessment & Plan (1) Cocaine use disorder, moderate, dependence: Status: Acute Code(s): F14.20 - Cocaine dependence, uncomplicated (2) Opioid use disorder, moderate, dependence: Status: Acute Code(s): F11.20 - Opioid dependence, uncomplicated Plan restart meds on which pt was discharged last week. refer to CSS. Patient educated on: medication risk/benefits and substance abuse Reason for continued inpatient stay Substantial Risk for: inability to function and rapid decompensation Statement Statement: I have reviewed the history and physical and performed a pertinent examination on my patient. No changes have occurred unless specified. If the History and Physical was not performed prior to admission, the Hospitalist's service will be consulted for completing the admission physical. Time Spent With Patient Time: Total time managing care of this patient today __35__ minutes.
--- NOTE | 2022-11-16 20:10 | MHC.RECOVSUP ---
? Reason for consult:Poly Substance Use o? Current location:307[address]2? o? Identified substance use concern:? -? Support ? Intervention: o? Community resources provided ? Plan: o? Follow up tomorrow? ? Additional information:ALEXANDR met with this pt and informed him of the RC services offered by [facility], ALEXANDR also informed this pt about the [facility] as well as [facility]. This pt is interested in obtaining a RC and working on his recovery. provided this pt with recovery resources and business card to complete a referral and assign a RC. Please follow up with this pt tomorrow.
[2022-11-16 21:00] VITALS: BP 118/74; PULSE 74; TEMP 36.6; O2SAT 98
[2022-11-16] MEDS: QUEtiapine Fumarate 100 MG TABLET PO (21:14)
[2022-11-16] MEDS: Prazosin HCL 1 MG CAPSULE 4 MG PO (21:14)
[2022-11-16] MEDS: Melatonin 3 MG TABLET 6 MG PO (21:27)
[2022-11-16] MEDS: hydrOXYzine HCL 25 MG TABLET PO (21:28)
[2022-11-17 09:00] VITALS: BP 109/65; PULSE 59; RESP 16; TEMP 36.7; O2SAT 97
[2022-11-17] MEDS: PARoxetine HCL 10 MG TABLET PO (09:11)
[2022-11-17] MEDS: Gabapentin 400 MG CAPSULE 800 MG PO ×2 (09:11→21:16)
[2022-11-17] MEDS: PARoxetine HCL 40 MG TABLET PO (09:11)
[2022-11-17] MEDS: Nicotine 21 MG PATCH.TD24 TRANSDERMA (09:11)
[2022-11-17] MEDS: methADONE HCl 20 MG/2 ML ORAL.CONC 195 MG PO (09:13)
[2022-11-17] MEDS: Nicotine Polacrilex 2 MG GUM 4 MG BUCCAL ×5 (09:15→21:46)
--- NOTE | 2022-11-17 15:32 | P.PNPSI_ITS ---
Subjective Subjective Date of Service: 11/17/22 Reason For Visit: SI Interim History: stable, minimally communicative. no complaints or requests. informed of [facility]'s asking for more info about him, implored to attend more groups for his own sake, and informed of plan to discharge in the next couple of days. per staff, anxious. denies depression. isolative and withdrawn. eating. poor sleep. TV. per staff appears to be sleeping well. Mental Status Exam Mental Status Exam Narrative: Appearance: casually groomed, good hygiene, in NAD Behavior: cooperative Psychomotor: no agitation or retardation noted Speech: clear, normal rate/rhythm/volume, spontaneous TP: linear TC: no signs of psychosis, hoping to DC to CSS Mood: OK Affect: flexible, non-labile. SI: none expressed HI: none expressed VH/AH: none expressed Delusions: none expressed Insight/judgment: poor x 2. memory/cog: alert, oriented x 3. Diagnostics Vital Signs (24Hr): Vital Signs - 24 hr 11/16/22 21:00 11/17/22 09:00 Temperature 97.9 F 98.1 F Pulse Rate 74 59 Respiratory Rate 16 Blood Pressure 118/74 109/65 Pulse Oximetry 98 97 Oxygen Delivery Method Room Air Room Air BMI result Body Mass Index 28.7 Labs 11/12/22 20:58 11/16/22 08:51 Labs: Laboratory Results - last 48 hr 11/16/22 11/16/22 08:51 08:51 Sodium 138 Potassium 4.4 Chloride 105 Carbon Dioxide 27 Anion Gap 10 L BUN 21 H Creatinine 0.70 Estim Creat Clear Calc 173.2 Estimated GFR > 60 Fasting Glucose 102 H Estimat Average Glucose 97 Hemoglobin A1c % 5.0 Calcium 9.0 D Total Bilirubin 0.1 AST 15 ALT 26 Alkaline Phosphatase 74 Total Protein 6.2 L Albumin 3.7 Triglycerides 652 Cholesterol 307 LDL Cholesterol, Calc TNP HDL Cholesterol 31 Imaging Radiology Impressions: ITS Impressions Abdomen/Pelvis CT 11/13/22 00:32 IMPRESSION: There is no evidence of renal or ureteral stone or obstruction. The bowel pattern is nonobstructing. Moderate colonic stool. No free fluid. Fleischner guidelines were followed. Medications Medications Current Medications Acetaminophen (Acetaminophen 325 Mg Tablet) 650 mg PO Q6H PRN PRN Reason: Headache/Pain Mild Scale (1-3) Last Admin: 11/16/22 13:20 Dose: 650 mg Al Hydroxide/Mg Hydroxide (Magnesium Hydrox/Alum Hydrox 30 Ml Oral.Susp) 30 ml PO Q6H PRN PRN Reason: Heartburn/Nausea Docusate Sodium (Docusate Sodium 100 Mg Capsule) 100 mg PO BEDTIME PRN PRN Reason: Constipation Gabapentin (Gabapentin 400 Mg Capsule) 800 mg PO BID BESSIE Last Admin: 11/17/22 09:11 Dose: 800 mg Hydroxyzine HCl (Hydroxyzine Hcl 25 Mg Tablet) 25 mg PO Q6H PRN PRN Reason: Anxiety Last Admin: 11/16/22 21:28 Dose: 25 mg Magnesium Hydroxide (Milk Of Magnesia 30 Ml Oral.Susp) 30 ml PO DAILY PRN PRN Reason: Constipation Melatonin (Melatonin 3 Mg Tablet) 6 mg PO BEDTIME PRN PRN Reason: Insomnia Last Admin: 11/16/22 21:27 Dose: 6 mg Methadone HCl (Methadone Hcl 20 Mg/2 Ml Oral.Conc) 195 mg PO DAILY [facility] Last Admin: 11/17/22 09:13 Dose: 195 mg Naloxone HCl (Naloxone Hcl Nasal 4 Mg [place]) 4 mg NOSTRILALT Q2M PRN PRN Reason: opioid overdose Last Admin: 11/15/22 09:52 Dose: 4 mg Naproxen (Naproxen 500 Mg Tablet) 500 mg PO BID PRN PRN Reason: Headache Last Admin: 11/15/22 22:38 Dose: 500 mg Nicotine (Nicotine 21 Mg Patch.Td24) 21 mg TRANSDERMA DAILY [facility] Last Admin: 11/17/22 09:11 Dose: 21 mg Nicotine Polacrilex (Nicotine Polacrilex 2 Mg Gum) 4 mg BUCCAL Q1H PRN PRN Reason: Nicotine Cravings Last Admin: 11/17/22 12:37 Dose: 4 mg Paroxetine HCl (Paroxetine Hcl 10 Mg Tablet) 10 mg PO DAILY BESSIE Last Admin: 11/17/22 09:11 Dose: 10 mg Paroxetine HCl (Paroxetine Hcl 40 Mg Tablet) 40 mg PO DAILY BESSIE Last Admin: 11/17/22 09:11 Dose: 40 mg Prazosin HCl (Prazosin Hcl 1 Mg Capsule) 4 mg PO BEDTIME BESSIE; Protocol Last Admin: 11/16/22 21:14 Dose: 4 mg Quetiapine Fumarate (Quetiapine Fumarate 100 Mg Tablet) 100 mg PO BEDTIME BESSIE Last Admin: 11/16/22 21:14 Dose: 100 mg Trazodone HCl (Trazodone Hcl 50 Mg Tablet) 50 mg PO BEDTIME PRN PRN Reason: Insomnia Allergies Allergies Allergy/AdvReac Type Severity Reaction Status Date / Time amoxicillin Allergy Hives Verified 10/30/22 13:55 Penicillins [PCN] Allergy Hives Verified 10/30/22 13:55 seafood Allergy Difficulty Verified 11/13/22 10:11 Breathing Assessment & Plan Assessment & Plan (1) Cocaine use disorder, moderate, dependence: Status: Acute Code(s): F14.20 - Cocaine dependence, uncomplicated (2) Opioid use disorder, moderate, dependence: Status: Acute Code(s): F11.20 - Opioid dependence, uncomplicated Plan 11/16: restart meds on which pt was discharged last week. refer to CSS. 11/17: no change in plan, stable presentation. Reason for continued inpatient stay Substantial Risk for: inability to function and rapid decompensation Time Spent With Patient Time: Total time managing care of this patient today ____ minutes.
[2022-11-17 21:09] VITALS: BP 119/75; PULSE 69; TEMP 36.8; O2SAT 98
[2022-11-17] MEDS: hydrOXYzine HCL 25 MG TABLET PO (21:17)
[2022-11-17] MEDS: Melatonin 3 MG TABLET 6 MG PO (21:17)
[2022-11-17] MEDS: QUEtiapine Fumarate 100 MG TABLET PO (21:17)
[2022-11-17] MEDS: Prazosin HCL 1 MG CAPSULE 4 MG PO (21:17)
[2022-11-17] MEDS: NaPROXEN 500 MG TABLET PO (23:40)
[2022-11-18 07:00] VITALS: BMI 29.7
[2022-11-18 08:00] VITALS: BP 107/57; PULSE 58; RESP 18; TEMP 36.7; O2SAT 97
[2022-11-18] MEDS: Nicotine 21 MG PATCH.TD24 TRANSDERMA (08:25)
[2022-11-18] MEDS: Nicotine Polacrilex 2 MG GUM 4 MG BUCCAL ×4 (08:26→20:46)
[2022-11-18] MEDS: Gabapentin 400 MG CAPSULE 800 MG PO ×2 (08:26→21:36)
[2022-11-18] MEDS: PARoxetine HCL 10 MG TABLET PO (08:26)
[2022-11-18] MEDS: methADONE HCl 20 MG/2 ML ORAL.CONC 195 MG PO (08:26)
[2022-11-18] MEDS: PARoxetine HCL 40 MG TABLET PO (08:26)
--- NOTE | 2022-11-18 13:35 | P.PNPSI_ITS ---
Subjective Subjective Date of Service: 11/18/22 Reason For Visit: SI Interim History: calm, cooperative. c/o anxiety, yet does not appear in the slightest anxious. discuss lack of admittance to CSS's and indications for continued hospitalization. pt agrees to increase gabapentin dosing from 800 BID to 600/600/800 for anxiety. per staff, pleasant. moderately anxious. denies SI/HI/AVH. attending some groups. safe. wants CSS. sleeping well. Mental Status Exam Mental Status Exam Narrative: Appearance: casually groomed, good hygiene, in NAD Behavior: cooperative Psychomotor: no agitation or retardation noted Speech: clear, normal rate/rhythm/volume, spontaneous TP: linear TC: no signs of psychosis, hoping to DC to CSS Mood: my anxiety is off the hook Affect: constricted, non-labile. SI: none expressed HI: none expressed VH/AH: none expressed Delusions: none expressed Insight/judgment: poor x 2. memory/cog: alert, oriented x 3. Diagnostics Vital Signs (24Hr): Vital Signs - 24 hr 11/17/22 21:09 11/18/22 08:00 Temperature 98.2 F 98.1 F Pulse Rate 69 58 Respiratory Rate 18 Blood Pressure 119/75 107/57 L Pulse Oximetry 98 97 Oxygen Delivery Method Room Air Room Air BMI result Body Mass Index 29.7 Labs 11/12/22 20:58 11/16/22 08:51 Imaging Radiology Impressions: ITS Impressions Abdomen/Pelvis CT 11/13/22 00:32 IMPRESSION: There is no evidence of renal or ureteral stone or obstruction. The bowel pattern is nonobstructing. Moderate colonic stool. No free fluid. Fleischner guidelines were followed. Medications Medications Current Medications Acetaminophen (Acetaminophen 325 Mg Tablet) 650 mg PO Q6H PRN PRN Reason: Headache/Pain Mild Scale (1-3) Last Admin: 11/16/22 13:20 Dose: 650 mg Al Hydroxide/Mg Hydroxide (Magnesium Hydrox/Alum Hydrox 30 Ml Oral.Susp) 30 ml PO Q6H PRN PRN Reason: Heartburn/Nausea Docusate Sodium (Docusate Sodium 100 Mg Capsule) 100 mg PO BEDTIME PRN PRN Reason: Constipation Gabapentin (Gabapentin 400 Mg Capsule) 800 mg PO BEDTIME BESSIE Gabapentin (Gabapentin 600 Mg Tablet) 600 mg PO BID@0900,1500 BESSIE Hydroxyzine HCl (Hydroxyzine Hcl 25 Mg Tablet) 25 mg PO Q6H PRN PRN Reason: Anxiety Last Admin: 11/17/22 21:17 Dose: 25 mg Magnesium Hydroxide (Milk Of Magnesia 30 Ml Oral.Susp) 30 ml PO DAILY PRN PRN Reason: Constipation Melatonin (Melatonin 3 Mg Tablet) 6 mg PO BEDTIME PRN PRN Reason: Insomnia Last Admin: 11/17/22 21:17 Dose: 6 mg Methadone HCl (Methadone Hcl 20 Mg/2 Ml Oral.Conc) 195 mg PO DAILY BESSIE Last Admin: 11/18/22 08:26 Dose: 195 mg Naloxone HCl (Naloxone Hcl Nasal 4 Mg [place]) 4 mg NOSTRILALT Q2M PRN PRN Reason: opioid overdose Last Admin: 11/15/22 09:52 Dose: 4 mg Naproxen (Naproxen 500 Mg Tablet) 500 mg PO BID PRN PRN Reason: Headache Last Admin: 11/17/22 23:40 Dose: 500 mg Nicotine (Nicotine 21 Mg Patch.Td24) 21 mg TRANSDERMA DAILY [facility] Last Admin: 11/18/22 08:25 Dose: 21 mg Nicotine Polacrilex (Nicotine Polacrilex 2 Mg Gum) 4 mg BUCCAL Q1H PRN PRN Reason: Nicotine Cravings Last Admin: 11/18/22 12:01 Dose: 4 mg Paroxetine HCl (Paroxetine Hcl 10 Mg Tablet) 10 mg PO DAILY BESSIE Last Admin: 11/18/22 08:26 Dose: 10 mg Paroxetine HCl (Paroxetine Hcl 40 Mg Tablet) 40 mg PO DAILY BESSIE Last Admin: 11/18/22 08:26 Dose: 40 mg Prazosin HCl (Prazosin Hcl 1 Mg Capsule) 4 mg PO BEDTIME BESSIE; Protocol Last Admin: 11/17/22 21:17 Dose: 4 mg Quetiapine Fumarate (Quetiapine Fumarate 100 Mg Tablet) 100 mg PO BEDTIME BESSIE Last Admin: 11/17/22 21:17 Dose: 100 mg Trazodone HCl (Trazodone Hcl 50 Mg Tablet) 50 mg PO BEDTIME PRN PRN Reason: Insomnia Allergies Allergies Allergy/AdvReac Type Severity Reaction Status Date / Time amoxicillin Allergy Hives Verified 10/30/22 13:55 Penicillins [PCN] Allergy Hives Verified 10/30/22 13:55 seafood Allergy Difficulty Verified 11/13/22 10:11 Breathing Assessment & Plan Assessment & Plan (1) Cocaine use disorder, moderate, dependence: Status: Acute Code(s): F14.20 - Cocaine dependence, uncomplicated (2) Opioid use disorder, moderate, dependence: Status: Acute Code(s): F11.20 - Opioid dependence, uncomplicated Plan 11/16: restart meds on which pt was discharged last week. refer to CSS. 11/17: no change in plan, stable presentation. 11/18: gabapentin increased from 800 BID to 600/600/800 for anxiety. not yet admitted to CSS. Reason for continued inpatient stay Substantial Risk for: harm to self, inability to function and rapid decompensation Time Spent With Patient Time: Total time managing care of this patient today __25__ minutes.
[2022-11-18] MEDS: Gabapentin 600 MG TABLET PO (15:36)
[2022-11-18 21:34] VITALS: BP 119/73; PULSE 70; RESP 18; TEMP 36.4; O2SAT 97
[2022-11-18] MEDS: Prazosin HCL 1 MG CAPSULE 4 MG PO (21:35)
[2022-11-18] MEDS: QUEtiapine Fumarate 100 MG TABLET PO (21:36)
[2022-11-18] MEDS: Melatonin 3 MG TABLET 6 MG PO (21:36)
[2022-11-19 08:00] VITALS: BP 120/68; PULSE 70; RESP 18; TEMP 36.8; O2SAT 98
[2022-11-19] MEDS: methADONE HCl 20 MG/2 ML ORAL.CONC 195 MG PO (09:00)
[2022-11-19] MEDS: Nicotine 21 MG PATCH.TD24 TRANSDERMA (09:19)
[2022-11-19] MEDS: PARoxetine HCL 10 MG TABLET PO (09:25)
[2022-11-19] MEDS: PARoxetine HCL 40 MG TABLET PO (09:25)
[2022-11-19] MEDS: Gabapentin 600 MG TABLET PO (09:25)
[2022-11-19] MEDS: Nicotine Polacrilex 2 MG GUM 4 MG BUCCAL ×2 (09:38→13:35)
--- NOTE | 2022-11-19 10:34 | P.DS_ITS ---
DS: Providers Provider Date of Service: 11/19/22 Date of admission: 11/15/22 15:08 Primary care physician: None Physician DS: Diagnosis Discharge Diagnosis (1) Cocaine use disorder, moderate, dependence: Status: Acute (2) Opioid use disorder, moderate, dependence: Status: Acute DS: Medications Discharge Medications Home Medications: Home Medications Medication Instructions Recorded Confirmed methadone 10 mg/mL oral concentrate 195 mg PO DAILY 12/30/21 11/13/22 Previous Rx's Medication Instructions Recorded docusate sodium 100 mg capsule 100 mg PO BEDTIME PRN Constipation 11/19/22 30 days #30 caps gabapentin 400 mg capsule 800 mg PO BEDTIME 30 days #60 caps 11/19/22 gabapentin 600 mg tablet 600 mg PO BID@0900,1500 30 days 11/19/22 #60 tabs melatonin 3 mg tablet 6 mg PO BEDTIME PRN Insomnia 30 11/19/22 days #60 tabs naloxone 4 mg/actuation nasal 4 mg intranasal Q2M PRN opioid 11/19/22 spray (Narcan) overdose 1 day #2 ea naproxen 500 mg tablet 500 mg PO BID PRN Headache 30 days 11/19/22 #60 tabs nicotine (polacrilex) 2 mg gum 4 mg buccal Q1H PRN Nicotine 11/19/22 Cravings 30 days #360 ea nicotine 21 mg/24 hr daily 21 mg transdermal DAILY 28 days 11/19/22 transdermal patch #28 ea paroxetine HCl 10 mg tablet 10 mg PO DAILY 30 days #30 tabs 11/19/22 paroxetine HCl 40 mg tablet (Paxil) 40 mg PO DAILY 30 days #30 tabs 11/19/22 prazosin 2 mg capsule 4 mg PO BEDTIME 30 days #60 caps 11/19/22 quetiapine 100 mg tablet (Seroquel) 100 mg PO BEDTIME 30 days #30 tabs 11/19/22 Mental Status Exam Mental Status Exam Narrative: Appearance: casually groomed, good hygiene, in NAD Behavior: cooperative Psychomotor: no agitation or retardation noted Speech: clear, normal rate/rhythm/volume, spontaneous TP: linear TC: no signs of psychosis Mood: anxious Affect: constricted, non-labile. SI: none expressed HI: none expressed VH/AH: none expressed Delusions: none expressed Insight/judgment: poor x 2. memory/cog: alert, oriented x 3. Data Data Completed and Pending Completed studies during hospitalization [Text1]: 11/12/22 11/12/22 11/12/22 20:58 20:58 20:58 WBC 9.5 RBC 4.12 L Hgb 12.0 L Hct 36.1 L MCV 87.6 MCH 29.1 MCHC 33.2 RDW 13.7 Plt Count 279 D MPV 10.1 Immature Gran % (Auto) 0.2 Neut % (Auto) 58.4 Lymph % (Auto) 26.5 [place] % (Auto) 12.0 H Eos % (Auto) 2.2 Baso % (Auto) 0.7 Lymph # (Auto) 2.5 [place] # (Auto) 1.1 Eos # (Auto) 0.2 Baso # (Auto) 0.1 Abs Immat Gran (auto) 0.02 Absolute Neuts (auto) 5.5 Absolute Nucleated RBC 0.000 Nucleated RBC % (auto) 0.0 Sodium 140 Potassium 3.9 Chloride 104 Carbon Dioxide 23 Anion Gap 17 BUN 23 H Creatinine 1.38 Estim Creat Clear Calc 87.8 Estimated GFR > 60 Random Glucose 105 Fasting Glucose Estimat Average Glucose Hemoglobin A1c % Calcium 9.8 D Magnesium 2.7 H Total Bilirubin 0.9 AST 37 ALT 46 H Alkaline Phosphatase 68 Troponin I High Sens < 2.7 D Total Protein 8.0 Albumin 5.0 Triglycerides Cholesterol LDL Cholesterol, Calc HDL Cholesterol Urine Color Urine Appearance Urine pH Ur Specific [place] Urine Protein Urine Glucose (UA) Urine Ketones Urine Blood Urine Nitrite Ur Leukocyte Esterase Urine RBC Urine WBC Ur Squamous Epith Cells Other Crystals Urine Bacteria Hyaline Casts Urine Opiates Screen Urine Fentanyl Screen Ur Barbiturates Screen Ur Phencyclidine Scrn Ur Amphetamines Screen U Benzodiazepines Scrn Urine Cocaine Screen U Marijuana (THC) Screen Ethyl Alcohol < 10 COVID-19 (JAMIE) COVID-19 Clin Com 11/13/22 11/13/22 11/13/22 10:14 10:14 10:14 WBC RBC Hgb Hct MCV MCH MCHC RDW Plt Count MPV Immature Gran % (Auto) Neut % (Auto) Lymph % (Auto) [place] % (Auto) Eos % (Auto) Baso % (Auto) Lymph # (Auto) [place] # (Auto) Eos # (Auto) Baso # (Auto) Abs Immat Gran (auto) Absolute Neuts (auto) Absolute Nucleated RBC Nucleated RBC % (auto) Sodium Potassium Chloride Carbon Dioxide Anion Gap BUN Creatinine Estim Creat Clear Calc Estimated GFR Random Glucose Fasting Glucose Estimat Average Glucose Hemoglobin A1c % Calcium Magnesium Total Bilirubin AST ALT Alkaline Phosphatase Troponin I High Sens Total Protein Albumin Triglycerides Cholesterol LDL Cholesterol, Calc HDL Cholesterol Urine Color Dark Yellow Urine Appearance Turbid Urine pH 5.5 Ur Specific [place] >= 1.030 H Urine Protein 100 (2+) H Urine Glucose (UA) Negative Urine Ketones Trace Urine Blood Negative Urine Nitrite Negative Ur Leukocyte Esterase Negative Urine RBC 0-2 Urine WBC 6-10 H Ur Squamous Epith Cells 11-20 Other Crystals Present Urine Bacteria 1+ Hyaline Casts >20 Urine Opiates Screen POSITIVE H Urine Fentanyl Screen POSITIVE H Ur Barbiturates Screen Not Detected Ur Phencyclidine Scrn Not Detected Ur Amphetamines Screen Not Detected U Benzodiazepines Scrn Not Detected Urine Cocaine Screen POSITIVE H U Marijuana (THC) Screen POSITIVE H Ethyl Alcohol COVID-19 (JAMIE) Negative COVID-19 [employer] See Note 11/16/22 11/16/22 08:51 08:51 WBC RBC Hgb Hct MCV MCH MCHC RDW Plt Count MPV Immature Gran % (Auto) Neut % (Auto) Lymph % (Auto) [place] % (Auto) Eos % (Auto) Baso % (Auto) Lymph # (Auto) [place] # (Auto) Eos # (Auto) Baso # (Auto) Abs Immat Gran (auto) Absolute Neuts (auto) Absolute Nucleated RBC Nucleated RBC % (auto) Sodium 138 Potassium 4.4 Chloride 105 Carbon Dioxide 27 Anion Gap 10 L BUN 21 H Creatinine 0.70 Estim Creat Clear Calc 173.2 Estimated GFR > 60 Random Glucose Fasting Glucose 102 H Estimat Average Glucose 97 Hemoglobin A1c % 5.0 Calcium 9.0 D Magnesium Total Bilirubin 0.1 AST 15 ALT 26 Alkaline Phosphatase 74 Troponin I High Sens Total Protein 6.2 L Albumin 3.7 Triglycerides 652 Cholesterol 307 LDL Cholesterol, Calc TNP HDL Cholesterol 31 Urine Color Urine Appearance Urine pH Ur Specific [place] Urine Protein Urine Glucose (UA) Urine Ketones Urine Blood Urine Nitrite Ur Leukocyte Esterase Urine RBC Urine WBC Ur Squamous Epith Cells Other Crystals Urine Bacteria Hyaline Casts Urine Opiates Screen Urine Fentanyl Screen Ur Barbiturates Screen Ur Phencyclidine Scrn Ur Amphetamines Screen U Benzodiazepines Scrn Urine Cocaine Screen U Marijuana (THC) Screen Ethyl Alcohol COVID-19 (JAMIE) COVID-19 [employer] 11/13/22 Unknown Urine clean catch - Urine rucker top Urine Culture - Final Imaging Diagnostic Imaging Impressions Abdomen/Pelvis CT 11/13/22 00:32 IMPRESSION: There is no evidence of renal or ureteral stone or obstruction. The bowel pattern is nonobstructing. Moderate colonic stool. No free fluid. Fleischner guidelines were followed. DS: Summary Hospital Course Hospital Course: per 11/16 admission note: pt discharged from [facility] last week and was out for three days before re-presenting to the ED c/o SI.? he had relapsed to substance use as well.? on admission interview with inpatient MD pt explained that shelters are full of drugs (he discharged to [facility] last week), that brought back his PTSD Sx/anxiety. ? he had physical manifestations, such as finding it difficult to breathe, then feeling depressed and anxious, having a hard time thinking and making rational decisions.? he is interested in [facility] at this admission. Past Psychiatric History: Inpt: [facility] more than 10 years ago OP: none Past medication trials: concerta, ritalin, adderall, seroquel, lithium, depakote, paxil, celexa, risperidone Denies hx of suicide attempts. Medical Evaluation Reviewed: Yes PMFSH Medical History? Mood disorder Polysubstance (including opioids) dependence, daily use Precis: 11/16:? restart meds on which pt was discharged last week.? refer to [facility]. 11/17:? no change in plan, stable presentation. 11/18:? gabapentin increased from 800 BID to 600/600/800 for anxiety.? not yet admitted to [facility]. 11/19: discharged to [facility] with plan to F/U with [facility]' on his own. Time Spent with Patient Time attestation: Total time managing care of this patient today ____ minutes. Discharge Plan Discharge Anticipated Discharge Date/Time: 11/19/22 10:31 Patient Disposition: Care Home Discharge Diagnosis: Anxiety Disorder NOS Cocaine Use Disorder Opioid Use Disorder, Full Agonist Maintenance Referrals: [facility] Programs [Other] - 1 Week (Continue to call the [facility] program as well as the [facility] program daily to check on bed availability) Delaney Stover (Therapy) [Other] - 11/23/22 3:30 pm (IN OFFICE APPOINTMENT -Please arrive to your appointment fifteen minutes early to fill out necessary paperwork. ) Donal Menendez (Psychiatry) [Other] - 12/16/22 1:00 pm (IN OFFICE APPOINTMENT -Psychiatric Evaluation ) Donal Menendez (Psychiatry) [Other] - 01/13/23 10:00 am (IN OFFICE APPOINTMENT -Medication Management ) Physician,None [Primary Care Provider] - 1 Week Discharge Medications: New gabapentin 600 mg Tablet 600 mg PO BID@0900,1500 30 Days Qty: 60 0RF gabapentin 400 mg Capsule 800 mg PO BEDTIME 30 Days Qty: 60 0RF naproxen 500 mg Tablet 500 mg PO BID PRN (Reason: Headache) 30 Days Qty: 60 0RF Continued methadone 10 mg/mL Concentrate 195 mg PO DAILY paroxetine HCl 10 mg tablet 10 mg PO DAILY 30 Days Qty: 30 0RF Rx Instructions: total 50 mg daily nicotine (polacrilex) 2 mg Gum 4 mg buccal Q1H PRN (Reason: Nicotine Cravings) 30 Days Qty: 360 0RF melatonin 3 mg Tablet 6 mg PO BEDTIME PRN (Reason: Insomnia) 30 Days Qty: 60 0RF quetiapine [Seroquel] 100 mg Tablet 100 mg PO BEDTIME 30 Days Qty: 30 0RF nicotine 21 mg/24 hr Patch 24 Hour 21 mg transdermal DAILY 28 Days Qty: 28 0RF docusate sodium 100 mg Capsule 100 mg PO BEDTIME PRN (Reason: Constipation) 30 Days Qty: 30 0RF paroxetine HCl [Paxil] 40 mg Tablet 40 mg PO DAILY 30 Days Qty: 30 0RF Rx Instructions: TOTAL OF 50MG DAILY prazosin 2 mg Capsule 4 mg PO BEDTIME 30 Days Qty: 60 0RF Rx Instructions: Take two tabs by mouth at bedtime naloxone [Narcan] 4 mg/actuation spray,non-aerosol 4 mg intranasal Q2M PRN (Reason: opioid overdose) 1 Days Qty: 2 0RF Rx Instructions: spray 1 dose into ONE nostril; alternate nostrils w each dose until help arrives Discontinued gabapentin 400 mg Capsule 800 mg PO BID 30 Days Qty: 120 0RF Discharge Orders: Discharge Order (Routine); Ordered 11/19/22 Ordered By: Wellington Dao Diet: Advance to usual diet Activity on Discharge: As tolerated Stand Alone Forms: Patient Portal Discharge page, Community Support Care Plan Goals: remain safe and stable in the outpatient treatment setting Health Concerns: none Plan of Treatment: take medications as prescribed, attend appointments as scheduled Assessment: not at imminent risk of harm to self or others
== END 2022-11-19 14:20 | disposition home or self-care (01) | DRG 753 ==
LOC: HO.ED 11-13 09:48 → HO.PADLT16 11-15 15:12
PROVIDERS: Emergency Medicine; Physician Assistant Medical; Social Worker; Admitting Provider Psychiatry & Neurology Psychiatry; Emergency Provider Emergency Medicine; Visit Provider Psychiatry & Neurology Psychiatry
DX: F39 Unspecified mood [affective] disorder (principal); R45.851 Suicidal ideations; Z91.148 Patient's other noncompliance with medication regimen for other reason; F11.20 Opioid dependence, uncomplicated; F14.20 Cocaine dependence, uncomplicated; F19.20 Other psychoactive substance dependence, uncomplicated; Z20.822 Contact with and (suspected) exposure to COVID-19; Z59.02 Unsheltered homelessness; Z88.0 Allergy status to penicillin; Z79.899 Other long term (current) drug therapy
CPT/HCPCS: 36415; 74176; 80053; 80061; 80307; 81001; 83036; 83735; 84484; 85025; 87086; 87635; 93005; 99285; J1885; S9485

== ENCOUNTER 2022-12-01 11:49 | Inpatient (IN) | payer OTHER, SELFPAY ==
[2022-12-01 11:54] VITALS: BP 125/77; PULSE 84; RESP 18; TEMP 36.6; O2SAT 98
--- NOTE | 2022-12-01 12:31 | ED_ITS ---
HPI - Psych General Chief Complaint: Psychiatric Symptoms Stated Complaint: Suicidal Thoughts Time Seen by Provider: 12/01/22 12:12 Source: patient Mode of arrival: ambulatory Limitations: no limitations History of Present Illness HPI Narrative: 31-year-old male with a history of polysubstance use, recent admission for RONA and rhabdomyolysis secondary to cocaine use presents to the ER with complaints of suicidal thoughts with plans to overdose and hearing voices. Patient reports he is medications were recently changed and they started him on Abilify but he does not feel like this is helping. He is denying homicidal ideations or any physical complaints. He does use IV heroin daily and smokes marijuana. Denies any additional substance use. He does not currently have a psychiatrist or therapist. He has a past medical history of polysubstance use, schizophrenia, bipolar disorder, dissociative personality disorder Related Data Home Medications Medication Instructions Recorded Confirmed methadone 10 mg/mL oral concentrate 195 mg PO DAILY 12/30/21 11/13/22 Previous Rx's Medication Instructions Recorded docusate sodium 100 mg capsule 100 mg PO BEDTIME PRN Constipation 11/19/22 30 days #30 caps gabapentin 400 mg capsule 800 mg PO BEDTIME 30 days #60 caps 11/19/22 gabapentin 600 mg tablet 600 mg PO BID@0900,1500 30 days 11/19/22 #60 tabs melatonin 3 mg tablet 6 mg PO BEDTIME PRN Insomnia 30 11/19/22 days #60 tabs naloxone 4 mg/actuation nasal 4 mg intranasal Q2M PRN opioid 11/19/22 spray (Narcan) overdose 1 day #2 ea naproxen 500 mg tablet 500 mg PO BID PRN Headache 30 days 11/19/22 #60 tabs nicotine (polacrilex) 2 mg gum 4 mg buccal Q1H PRN Nicotine 11/19/22 Cravings 30 days #360 ea nicotine 21 mg/24 hr daily 21 mg transdermal DAILY 28 days 11/19/22 transdermal patch #28 ea paroxetine HCl 10 mg tablet 10 mg PO DAILY 30 days #30 tabs 11/19/22 paroxetine HCl 40 mg tablet (Paxil) 40 mg PO DAILY 30 days #30 tabs 11/19/22 prazosin 2 mg capsule 4 mg PO BEDTIME 30 days #60 caps 11/19/22 quetiapine 100 mg tablet (Seroquel) 100 mg PO BEDTIME 30 days #30 tabs 11/19/22 Allergies Allergy/AdvReac Type Severity Reaction Status Date / Time amoxicillin Allergy Hives Verified 10/30/22 13:55 Penicillins [PCN] Allergy Hives Verified 10/30/22 13:55 seafood Allergy Difficulty Verified 11/13/22 10:11 Breathing Review of Systems Review of Systems: Yes all other systems are reviewed and are negative Constitutional: Constitutional: Reports no additional constitutional complaints, Denies body ache(s), Denies chills, Denies fever(s), Denies headache(s) and Denies weakness Eyes: Eyes: Reports no additional eye complaints and Denies change in vision ENT: Reports system reviewed and no additional complaints, except as documented, Denies dizziness, Denies headache(s), Denies nasal congestion, De nies nasal discharge and Denies neck pain Cardiovascular: Cardiovascular: Reports no additional cardiovascular complaints, Denies chest pain, Denies leg edema and Denies dyspnea Respiratory: Respiratory: Reports no additional respiratory complaints, Denies cough and Denies dyspnea Gastrointestinal: Gastrointestinal: Reports no additional gastrointestinal complaints, Denies abdominal pain, Denies diarrhea, Denies nausea and Denies vomiting Genitourinary: Genitourinary: Denies urinary incontinence Musculoskeletal: Musculoskeletal: Reports no additional musculoskeletal complaints, Denies back pain, Denies arthralgias, Denies joint swelling, Denies neck pain, Denies numbness and Denies tingling Integumentary/Breasts: Skin/Breast: Reports system reviewed and no additional complaints, except as docu and Denies rash Neurologic: Reports system reviewed and no additional complaints, except as documented, Denies Abnormal speech present, Denies dizziness, Denies headache(s), Denies numbness, Denies tingling and Denies weakness Psychiatric: Psychiatric: Reports hallucinations, Denies homicidal ideation and Reports suicidal ideation PMFSH Past Medical History Medical History Mood disorder Polysubstance (including opioids) dependence, daily use Social History Social History Household Members: None Household Members Other:: homeless Housing: Homeless Do you presently have visiting nurse or other home services: No Alcohol intake: never Patient Tobacco Use Status: Current everyday Tobacco user Tobacco use type: Cigarette Cigarette Packs Per Day: 0.5 Cigarettes Per Day: 10.0 Smoked in Last 30 Days: No Second Hand Smoke Exposure: No Use of substances other than those prescribed or required for medical reasons: Yes Substance Use Type: Crack/Cocaine Substance Use Frequency: Occasionally Last Used Substance: Days (ago) Any prior treatment program specific to substance use: Yes Advance Directives: No Advance Directives Information Provided: Yes service: No Current occupational status: unemployed Sexual orientation: Straight/Heterosexual Physical Exam Vital Signs: Vital Signs: Last Vital Signs Temp 97.8 F 12/01/22 11:54 Pulse 84 12/01/22 11:54 Resp 18 12/01/22 11:54 BP 125/77 12/01/22 11:54 Pulse Ox 98 12/01/22 11:54 O2 Del Method Room Air 12/01/22 11:54 BMI result Body Mass Index 30.0 Const: General: cooperative, healthy appearing, comfortable and no acute distress Orientation/consciousness: patient oriented x3 Limitations: no limitations HEENT: Head: Yes normal to inspection Ears: hearing grossly normal bilaterally General nose exam: Normal external nose present Face and sinus: Yes normal facial exam Mouth: Normal oral and palatal mucosa present Throat: Yes posterior oropharynx normal Eyes: General: appearance normal, both eyes and all related structures Pupils: Equal, round and reactive pupils present Neck: Neck: Yes normal visual inspection Chest: Chest palpation & inspection: normal inspection of the chest Resp: Effort & Inspection: normal respiratory effort Auscultation: clear to auscultation bilaterally Cardio: Rate: regular rate Rhythm: regular rhythm Peripheral pulses: Peripheral pulses 2+ throughout GI: Inspection: Yes normal to inspection Palpation (GI): Soft to palpation and nontender Auscultation: normal bowel sounds Back/Spine/Pelvis: Thoracic/Lumbar Spine: thoracic and lumbar spine normal to inspection Skin: General skin exam: no rashes or lesions noted Neuro: General: patient oriented x3, no focal motor deficits and normal sensation to monofilament Cranial nerves: Yes Equal, round and reactive pupils present Cognition (Neuro): normal cognition Speech: No Abnormal speech present Gait exam (Neuro): Normal gait present Motor exam (neuro): 5/5 motor strength present throughout Extrem: General: Yes normal to inspection Course Course Course Narrative: Patient was placed in physician observation pending evaluation by crisis Medical Decision Making Medical Decision Making MDM Narrative: 31-year-old male here with suicidal thoughts with plan to overdose and hearing voices Recent admission for RONA and rhabdomyolysis Will check labs, UA, need care team consult Differential Diagnosis Differential Diagnoses: The differential diagnosis associated with the presentation includes Depression Lab Data MDM Lab Attestation statement: I reviewed the patient's lab results. 12/01/22 12:54 12/01/22 12:54 Labs: Lab Results 12/01/22 12/01/22 12/01/22 Range/Units 12:54 12:54 12:54 WBC 7.6 (4.8-10.8) X10*3/uL RBC 3.76 L (4.60-5.80) X10*6/uL Hgb 10.9 L (14.0-18.0) g/dl Hct 33.5 L (42.0-52.0) % MCV 89.1 (80.0-98.0) fL MCH 29.0 (27.0-33.0) pg MCHC 32.5 (31.0-36.0) g/dl RDW 13.4 (11.0-16.0) % Plt Count 185 D (160-400) X10*3/uL MPV 11.5 (9.4-12.4) fL Immature Gran % (Auto) 0.5 H (0.0-0.4) % Neut % (Auto) 59.5 (45-73) % Lymph % (Auto) 25.7 (20-40) % [place] % (Auto) 9.7 (2-11) % Eos % (Auto) 4.1 H (0-4) % Baso % (Auto) 0.5 (0-2) % Lymph # (Auto) 2.0 (1.2-4.9) X10*3/uL [place] # (Auto) 0.7 (0.1-1.2) X10*3/uL Eos # (Auto) 0.3 (0.0-0.4) X10*3/uL Baso # (Auto) 0.0 (0.0-0.2) X10*3/uL Abs Immat Gran (auto) 0.04 H (0.00-0.03) X10*3/uL Absolute Neuts (auto) 4.5 (2.0-8.3) x10*3/uL Absolute Nucleated RBC 0.000 (0.0-0.012) X10*3/uL Nucleated RBC % (auto) 0.0 (0.0-0.2) /100WBC Sodium 142 (135-145) mmol/L Potassium 4.1 (3.3-5.1) mmol/L Chloride 103 (96-108) mmol/L Carbon Dioxide 27 (22-29) mmol/L Anion Gap 16 (12-20) BUN 19 H (9-16) mg/dL Creatinine 0.81 (0.5-1.4) mg/dL Estim Creat Clear Calc 152.7 Estimated GFR > 60 Random Glucose 100 (60-115) mg/dL Calcium 9.7 D (8.4-10.2) mg/dL Total Bilirubin 0.4 (0.0-1.0) mg/dL Direct Bilirubin 0.1 (0.0-0.5) mg/dL AST 47 H (5-37) U/L ALT 35 (0-40) U/L Alkaline Phosphatase 56 (39-117) U/L Total Protein 7.4 (6.5-8.0) g/dL Albumin 4.2 (3.5-5.0) g/dL Ethyl Alcohol < 10 mg/dL COVID-19 (JAMIE) (Negative) COVID-19 Clin Com 12/01/22 Range/Units 12:56 WBC (4.8-10.8) X10*3/uL RBC (4.60-5.80) X10*6/uL Hgb (14.0-18.0) g/dl Hct (42.0-52.0) % MCV (80.0-98.0) fL MCH (27.0-33.0) pg MCHC (31.0-36.0) g/dl RDW (11.0-16.0) % Plt Count (160-400) X10*3/uL MPV (9.4-12.4) fL Immature Gran % (Auto) (0.0-0.4) % Neut % (Auto) (45-73) % Lymph % (Auto) (20-40) % [place] % (Auto) (2-11) % Eos % (Auto) (0-4) % Baso % (Auto) (0-2) % Lymph # (Auto) (1.2-4.9) X10*3/uL [place] # (Auto) (0.1-1.2) X10*3/uL Eos # (Auto) (0.0-0.4) X10*3/uL Baso # (Auto) (0.0-0.2) X10*3/uL Abs Immat Gran (auto) (0.00-0.03) X10*3/uL Absolute Neuts (auto) (2.0-8.3) x10*3/uL Absolute Nucleated RBC (0.0-0.012) X10*3/uL Nucleated RBC % (auto) (0.0-0.2) /100WBC Sodium (135-145) mmol/L Potassium (3.3-5.1) mmol/L Chloride (96-108) mmol/L Carbon Dioxide (22-29) mmol/L Anion Gap (12-20) BUN (9-16) mg/dL Creatinine (0.5-1.4) mg/dL Estim Creat Clear Calc Estimated GFR Random Glucose (60-115) mg/dL Calcium (8.4-10.2) mg/dL Total Bilirubin (0.0-1.0) mg/dL Direct Bilirubin (0.0-0.5) mg/dL AST (5-37) U/L ALT (0-40) U/L Alkaline Phosphatase (39-117) U/L Total Protein (6.5-8.0) g/dL Albumin (3.5-5.0) g/dL Ethyl Alcohol mg/dL COVID-19 (JAMIE) Negative (Negative) COVID-19 Clin Com See Note Discharge Plan Discharge Clinical Impression: Suicidal ideation Patient Disposition: Still a Patient Prescriptions: No Action methadone 10 mg/mL Concentrate 195 mg PO DAILY gabapentin 600 mg Tablet 600 mg PO BID@0900,1500 30 Days Qty: 60 0RF gabapentin 400 mg Capsule 800 mg PO BEDTIME 30 Days Qty: 60 0RF naproxen 500 mg Tablet 500 mg PO BID PRN (Reason: Headache) 30 Days Qty: 60 0RF paroxetine HCl 10 mg tablet 10 mg PO DAILY 30 Days Qty: 30 0RF Rx Instructions: total 50 mg daily nicotine (polacrilex) 2 mg Gum 4 mg buccal Q1H PRN (Reason: Nicotine Cravings) 30 Days Qty: 360 0RF melatonin 3 mg Tablet 6 mg PO BEDTIME PRN (Reason: Insomnia) 30 Days Qty: 60 0RF quetiapine [Seroquel] 100 mg Tablet 100 mg PO BEDTIME 30 Days Qty: 30 0RF nicotine 21 mg/24 hr Patch 24 Hour 21 mg transdermal DAILY 28 Days Qty: 28 0RF docusate sodium 100 mg Capsule 100 mg PO BEDTIME PRN (Reason: Constipation) 30 Days Qty: 30 0RF paroxetine HCl [Paxil] 40 mg Tablet 40 mg PO DAILY 30 Days Qty: 30 0RF Rx Instructions: TOTAL OF 50MG DAILY prazosin 2 mg Capsule 4 mg PO BEDTIME 30 Days Qty: 60 0RF Rx Instructions: Take two tabs by mouth at bedtime naloxone [Narcan] 4 mg/actuation spray,non-aerosol 4 mg intranasal Q2M PRN (Reason: opioid overdose) 1 Days Qty: 2 0RF Rx Instructions: spray 1 dose into ONE nostril; alternate nostrils w each dose until help arrives Interventions: [place]-Suicide Risk Severity Scale Last Done: 12/01/22 13:16
[2022-12-01 13:03] LABS: MANUAL DIFF FLAG NO
[2022-12-01 13:08] LABS: Basophils Percent Auto 0.5 % (0-2); Eosinophils Absolute Auto 0.3 X10*3/uL (0.0-0.4); Eosinophils Percent Auto 4.1 % (0-4); Hematocrit 33.5 % (42.0-52.0); Hemoglobin 10.9 g/dl (14.0-18.0); Imm Gran Abs Auto 0.04 X10*3/uL (0.00-0.03); Imm Gran Pct Auto 0.5 % (0.0-0.4); Lymphocytes Percent Auto 25.7 % (20-40); Mean Corpuscular HGB Conc 32.5 g/dl (31.0-36.0); Mean Corpuscular Volume 89.1 fL (80.0-98.0); Mean Platelet Volume 11.5 fL (9.4-12.4); Monocytes Absolute Auto 0.7 X10*3/uL (0.1-1.2); Monocytes Percent Auto 9.7 % (2-11); Neutrophils Absolute Auto 4.5 x10*3/uL (2.0-8.3); Neutrophils Percent Auto 59.5 % (45-73); Platelet Count 185 X10*3/uL (160-400); Red Blood Count 3.76 X10*6/uL (4.60-5.80); Red Cell Distribution Width 13.4 % (11.0-16.0); White Blood Count 7.6 X10*3/uL (4.8-10.8)
[2022-12-01 13:23] LABS: COVID-19 Test Negative (Negative); IDNOW Serial# BCCEAD1C
[2022-12-01 13:33] LABS: Alanine Aminotransferase 35 U/L (0-40); Albumin Level 4.2 g/dL (3.5-5.0); Alkaline Phosphatase 56 U/L (39-117); Anion Gap 16 (12-20); Aspartate Amino Transferase 47 U/L (5-37); Bilirubin Direct 0.1 mg/dL (0.0-0.5); Bilirubin Total 0.4 mg/dL (0.0-1.0); Blood Urea Nitrogen 19 mg/dL (9-16); Calcium 9.7 mg/dL (8.4-10.2); Carbon Dioxide 27 mmol/L (22-29); Chloride 103 mmol/L (96-108); Creatinine Clr Calc Pharmacy 152.7; Estimated Glomerular Filt Rate > 60; Glucose Random 100 mg/dL (60-115); Potassium 4.1 mmol/L (3.3-5.1); Sodium 142 mmol/L (135-145); Total Protein 7.4 g/dL (6.5-8.0)
[2022-12-01 13:43] LABS: Ethanol < 10 mg/dL
[2022-12-01 15:52] VITALS: BP 114/69; PULSE 60; RESP 18; TEMP 36.3; O2SAT 97
[2022-12-01 18:03] LABS: Appearance Urine Clear; Color Urine Yellow; Glucose Urine UA Negative (Negative); Leukocyte Esterase Urine Negative (Negative); Nitrite Urine Negative (Negative); Specific Gravity - Urine >= 1.030 (1.005-1.025); Urine Blood Negative (Negative); Urine Ketones Negative (Negative); Urine Protein Trace mg/dL (Neg-Trace)
[2022-12-01 18:12] LABS: Amphetamine Screen Urine Not Detected (Not Detect); Barbiturates, Urine Not Detected (Not Detect); Benzodiazepines Screen Urine Not Detected (Not Detect); Cannabinoid Screen Urine POSITIVE (Not Detect); Cocaine Screen Urine POSITIVE (Not Detect); Fentanyl, urine POSITIVE (Not Detect); Opiate Screen Urine POSITIVE (Not Detect); Phencyclidine Screen Urine Not Detected (Not Detect)
--- NOTE | 2022-12-01 21:13 | PHA.MEDREC ---
Pharmacy Consult ? Medication Reconciliation Pharmacy has completed the medication reconciliation. spoke with patient and confirmed his medications. Used claim history and discharge packet to verify. Patient states he takes methadone 195mg and receives it from a clinic in [place].
[2022-12-01] MEDS: Melatonin 3 MG TABLET 9 MG PO (22:32)
[2022-12-01] MEDS: Gabapentin 400 MG CAPSULE 800 MG PO (22:33)
[2022-12-01 22:37] VITALS: BP 111/56; PULSE 56; RESP 16; TEMP 36.6; O2SAT 95
--- NOTE | 2022-12-02 | ECG_ITS ---
Test Reason : cocaine use Blood Pressure : / mmHG Vent. Rate : 058 BPM Atrial Rate : 058 BPM P-R Int : 138 ms QRS Dur : 078 ms QT Int : 470 ms P-R-T Axes : 005 042 041 degrees QTc Int : 461 ms Sinus bradycardia Otherwise normal ECG When compared with ECG of 12-NOV-2022 20:48, Nonspecific T wave abnormality no longer evident in Anterior leads Referred By: Keesha Aguila Electronically Signed By:NIRANJAN GORDON
[2022-12-02 02:54] VITALS: BP 119/77; PULSE 56; RESP 17; TEMP 36.6; O2SAT 97
--- NOTE | 2022-12-02 06:15 | PC.NURSE ---
Patient slept through the night, no distress observed/reported, Prazosin HS held low BP, medication compliant, disposition per care team is section 12 inpatient bed search, behavior non concerning, labs completed/resulted, will continue to monitor.
--- NOTE | 2022-12-02 07:33 | PC.NURSE ---
pt sleeping at present. Bedsearch continues.
--- NOTE | 2022-12-02 08:34 | HE.PHANOTE ---
Methadone verification form received by pharmacy. Confirmed with [facility] Mehrdad at 195 mg last dose given 12/01/22 @1037 am
[2022-12-02] MEDS: PARoxetine HCL 10 MG TABLET PO (08:42)
[2022-12-02] MEDS: ARIPiprazole 5 MG TABLET PO (08:42)
[2022-12-02] MEDS: Gabapentin 600 MG TABLET PO ×2 (08:42→14:35)
[2022-12-02] MEDS: methADONE HCl 20 MG/2 ML ORAL.CONC 195 MG PO (08:43)
[2022-12-02] MEDS: Nicotine 21 MG PATCH.TD24 TRANSDERMA (08:43)
[2022-12-02] MEDS: PARoxetine HCL 40 MG TABLET PO (08:43)
[2022-12-02] MEDS: Nicotine Polacrilex 2 MG GUM 4 MG BUCCAL ×4 (08:52→21:44)
--- NOTE | 2022-12-02 10:46 | PC.NURSE ---
Methadone dose verified with Zulma Whittaker LPN at [facility] methadone clinic. Faxed to pharmacy and provider notified.
[2022-12-02 12:28] VITALS: BP 123/74; PULSE 62; RESP 18; TEMP 36.5; O2SAT 97
--- NOTE | 2022-12-02 12:29 | PC.NURSE ---
Report given to accepting unit
--- NOTE | 2022-12-02 13:38 | PC.NURSE ---
Discharged to [facility] with YOHAN Gray and .
[2022-12-02 14:37] VITALS: BP 125/69; PULSE 74; RESP 16; TEMP 36.6; O2SAT 96
[2022-12-02 17:11] VITALS: BP 114/56; PULSE 60; TEMP 36.4; O2SAT 96
[2022-12-02] MEDS: Melatonin 3 MG TABLET 9 MG PO (21:39)
[2022-12-02] MEDS: cloNIDine HCL 0.2 MG TABLET PO (21:41)
[2022-12-02] MEDS: Prazosin HCL 1 MG CAPSULE 4 MG PO (21:41)
[2022-12-03] MEDS: Gabapentin 600 MG TABLET PO ×2 (08:39→14:24)
[2022-12-03] MEDS: PARoxetine HCL 10 MG TABLET PO (08:39)
[2022-12-03] MEDS: Nicotine 21 MG PATCH.TD24 TRANSDERMA (08:39)
[2022-12-03] MEDS: ARIPiprazole 5 MG TABLET PO (08:39)
[2022-12-03] MEDS: PARoxetine HCL 40 MG TABLET PO (08:39)
[2022-12-03] MEDS: methADONE HCl 20 MG/2 ML ORAL.CONC 195 MG PO (09:03)
[2022-12-03] MEDS: Nicotine Polacrilex 2 MG GUM 4 MG BUCCAL (09:03)
[2022-12-03 10:25] VITALS: BP 117/68; PULSE 70; RESP 16; TEMP 36.4; O2SAT 98
--- NOTE | 2022-12-03 14:25 | P.HPPS_ITS ---
HPI Date of Service: 12/03/22 Chief Complaint: Psychosis Sources of Information: patient interviewed, chart reviewed and crisis/core team assessment reviewed HPI Subjective Notes: [place] Warning and Conditional Voluntary Healthcare Proxy: No Guardianship: No Medical Problems Affecting Mental Status: No Narrative: 31 yo male, history of cocaine and opiate use disorder, reports perceptual alterations, SI with plan to overdose. Reports he has a PTSD history with disso ciative identies . States other personalities emerge and take over his being. He reports relase from [place] 10/28/22. He has had a recent admission to and [facility], however, did not follow up with aftercare plans put into place with his team. 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 States symptoms take control of his body and makes it difficult to want to keep living. Reports homelessness, panhandling for funds. Asks for assist in application for [facility] services and application for social security. Also will consider [facility] placement. Past Psychiatric History: Inpt: [facility] more than 10 years ago, recently, [facility] recently OP: none Past medication trials: concerta, ritalin, adderall, seroquel, lithium, depakote, paxil, celexa, risperidone Denies hx of suicide attempts. Medical Evaluation Reviewed: Yes [facility] Medical History (Updated 12/03/22 @ 16:41 by Carly Zamorano, EDLFIN) Mood disorder Polysubstance (including opioids) dependence, daily use PTSD (post-traumatic stress disorder) Narrative: Hx TBI/Seizure when using cocaine by history Family History: Mental Health and Addiction issues Social History: Raised in the [facility]. Graduated from high school. 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 Would like to apply for disability and for housing, along with [facility] services Daughter, age 7 Substance History: Toxicology positive for opiates, fentanyl, cocaine, THC Uses Klonopin from the street Trauma History: Affirms Diagnostics Vital Signs (24Hr): Vital Signs - 24 hr 12/02/22 14:37 12/02/22 17:11 12/03/22 10:25 Temperature 97.8 F 97.5 F 97.5 F Pulse Rate 74 60 70 Respiratory Rate 16 16 Blood Pressure 125/69 114/56 L 117/68 Pulse Oximetry 96 96 98 Oxygen Delivery Method Room Air Room Air Room Air BMI result Body Mass Index 30.0 Labs 12/01/22 12:54 12/01/22 12:54 Labs: Laboratory Results - last 48 hr 12/01/22 12/01/22 17:56 17:56 Urine Color Yellow Urine Appearance Clear Urine pH 6.0 Ur Specific Reading >= 1.030 H Urine Protein Trace Urine Glucose (UA) Negative Urine Ketones Negative Urine Blood Negative Urine Nitrite Negative Ur Leukocyte Esterase Negative Urine Opiates Screen POSITIVE H Urine Fentanyl Screen POSITIVE H Ur Barbiturates Screen Not Detected Ur Phencyclidine Scrn Not Detected Ur Amphetamines Screen Not Detected U Benzodiazepines Scrn Not Detected Urine Cocaine Screen POSITIVE H U Marijuana (THC) Screen POSITIVE H Meds/Allergies Meds Home Medications Medication Instructions Recorded Confirmed Type aripiprazole 5 mg tablet 5 mg PO DAILY 12/01/22 12/01/22 History clonidine HCl 0.1 mg tablet 0.2 mg PO BID PRN Anxiety 12/01/22 12/01/22 History gabapentin 400 mg capsule 800 mg PO BEDTIME 12/01/22 12/01/22 History gabapentin 600 mg tablet 600 mg PO BID@0900,1500 12/01/22 12/01/22 History hydroxyzine pamoate 50 mg capsule 100 mg PO BID PRN Anxiety 12/01/22 12/01/22 History melatonin 3 mg tablet 9 mg PO BEDTIME 12/01/22 12/01/22 History methadone 10 mg/mL oral concentrate 195 mg PO DAILY 12/01/22 12/03/22 History naproxen 500 mg tablet 500 mg PO BID PRN Headache 12/01/22 12/01/22 History nicotine (polacrilex) 2 mg gum 4 mg PO Q1H PRN Smoking Cessation 12/01/2211/12 History nicotine 21 mg/24 hr daily 1 patch topical DAILY 12/01/22 12/01/22 History transdermal patch paroxetine HCl 10 mg tablet 10 mg PO DAILY 12/01/22 12/01/22 History paroxetine HCl 40 mg tablet 40 mg PO DAILY 12/01/22 12/01/22 History prazosin 2 mg capsule 4 mg PO BEDTIME 12/01/22 12/01/22 History Allergies Allergies Allergy/AdvReac Type Severity Reaction Status Date / Time amoxicillin Allergy Hives Verified 10/30/22 13:55 Penicillins [PCN] Allergy Hives Verified 10/30/22 13:55 seafood Allergy Difficulty Verified 11/13/22 10:11 Breathing Mental Status Exam Mental Status Exam Patient Appearance: Appropriate Patient Orientation: Person, Place, Time and Situation Level of Consciousness: Alert Patient Behavior: Appropriate, Talkative, Cooperative, Distractible and Good Eye Contact Mood Description: Depressed, Anxious and Apprehensive Affect Description: Flat Patient Cognition Impaired: No Ability to Follow Directions: Good Speech Pattern: Spontaneous Speech Memory Description: Episodic Impaired Hallucinations: Auditory and Visual Delusions: Paranoid Ideation and Present Perceptual Disturbances: Depersonalization and Derealization Thought Process: Distracted and Rumination Thought Content: positive for Circumstantial, positive for Perseveration and positive for Suicidal Ideation Depressive Symptoms: Thoughts of /Suicide Judgement: Fair Assessment & Plan Assessment & Plan (1) Cocaine use disorder, moderate, dependence: Status: Acute Code(s): F14.20 - Cocaine dependence, uncomplicated (2) Opioid use disorder, moderate, dependence: Status: Acute Code(s): F11.20 - Opioid dependence, uncomplicated (3) PTSD (post-traumatic stress disorder): Status: Acute Code(s): F43.10 - Post-traumatic stress disorder, unspecified Plan 31 yo male, history of PTSD, polysubstance use disorder with active methadone maintenance. 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 Asks for help with admission to [facility], application for [facility] services and application for disability. Plan: Increase Abilify to 10 mg daily Iron profile Gemfibrozil 600 mg bid (Triglycerides 652) Collateral Contact Aftercare/Outpatient planning. Patient educated on: medication risk/benefits and therapeutic strategies Informed Consent: understands Reason for continued inpatient stay Substantial Risk for: rapid decompensation Statement Statement: I have reviewed the history and physical and performed a pertinent examination on my patient. No changes have occurred unless specified. If the History and Physical was not performed prior to admission, the Hospitalist's service will be consulted for completing the admission physical. Time Spent With Patient Time: Total time managing care of this patient today ____ minutes.
[2022-12-03 17:36] VITALS: BP 107/71; PULSE 60; TEMP 36.4; O2SAT 96
[2022-12-03] MEDS: gemfibroziL 600 MG TABLET PO (17:40)
[2022-12-03] MEDS: Prazosin HCL 1 MG CAPSULE 4 MG PO (20:52)
[2022-12-03] MEDS: Melatonin 3 MG TABLET 9 MG PO (20:52)
[2022-12-03] MEDS: Gabapentin 400 MG CAPSULE 800 MG PO (20:52)
[2022-12-03] MEDS: NaPROXEN 500 MG TABLET PO (21:40)
[2022-12-04 06:00] VITALS: BP 140/72; PULSE 75; RESP 18
[2022-12-04] MEDS: methADONE HCl 20 MG/2 ML ORAL.CONC 195 MG PO (08:06)
[2022-12-04] MEDS: Nicotine 21 MG PATCH.TD24 TRANSDERMA (08:07)
[2022-12-04] MEDS: PARoxetine HCL 10 MG TABLET PO (08:07)
[2022-12-04] MEDS: Gabapentin 600 MG TABLET PO ×2 (08:07→14:26)
[2022-12-04] MEDS: gemfibroziL 600 MG TABLET PO ×2 (08:07→15:28)
[2022-12-04] MEDS: PARoxetine HCL 40 MG TABLET PO (08:07)
[2022-12-04] MEDS: ARIPiprazole 10 MG TABLET PO (08:07)
[2022-12-04 08:25] LABS: Iron 57 mcg/dL (45-160); Percent Iron Saturation 16 % (15-50); Total Iron Binding Capacity 348 mcg/dL (228-428); Unsaturated Iron Binding 291 ug/dL
[2022-12-04] MEDS: Nicotine Polacrilex 2 MG GUM 4 MG BUCCAL ×4 (08:42→20:23)
--- NOTE | 2022-12-04 11:37 | P.PNPSI_ITS ---
Subjective Subjective Date of Service: 12/04/22 Reason For Visit: Psychosis Interim History: Patient seen and discussed. Patient reports he is improved since admission. He remains somewhat irritable. He denies any side effects with medications. He is medication compliant. Reports sleep and appetite are good. Denies SI/HI/AVH today. Review of Systems Review of Systems Yes all other systems are reviewed and are negative Constitutional: Reports no additional constitutional complaints, Denies body ache(s), Denies chills, Denies fever(s), Denies headache(s) and Denies weakness Eyes: Reports no additional eye complaints and Denies change in vision Reports system reviewed and no additional complaints, except as documented, Denies dizziness, Denies headache(s), Denies nasal congestion, Denies nasal discharge and Denies neck pain Cardiovascular: Reports no additional cardiovascular complaints, Denies chest pain, Denies leg edema and Denies dyspnea Respiratory: Reports no additional respiratory complaints, Denies cough and Denies dyspnea Gastrointestinal: Reports no additional gastrointestinal complaints, Denies abdominal pain, Denies diarrhea, Denies nausea and Denies vomiting Genitourinary: Denies urinary incontinence Musculoskeletal: Reports no additional musculoskeletal complaints, Denies back pain, Denies arthralgias, Denies joint swelling, Denies neck pain, Denies numbness and Denies tingling Skin/Breast: Reports system reviewed and no additional complaints, except as docu and Denies rash Reports system reviewed and no additional complaints, except as documented, Denies Abnormal speech present, Reports behavioral changes, Denies dizziness, Denies headache(s), Denies numbness, Denies tingling and Denies weakness Psychiatric: Reports abnormal sleep pattern, Reports anxiety, Reports behavioral changes, Reports depression, Reports difficulty concentrating, Reports auditory hallucinations, Reports hopelessness, Reports anhedonia, Reports mood swings, Reports panic attacks, Reports paranoia, Reports visual hallucinations, Reports hallucinations, Denies homicidal ideation and Reports suicidal ideation Mental Status Exam Mental Status Exam Patient Appearance: Appropriate Patient Orientation: Person, Place, Time and Situation Level of Consciousness: Alert Patient Behavior: Appropriate, Talkative, Cooperative, Distractible and Good Eye Contact Mood Description: Depressed, Anxious and Apprehensive Affect Description: Flat Patient Cognition Impaired: No Ability to Follow Directions: Good Speech Pattern: Spontaneous Speech Memory Description: Episodic Impaired Diagnostics Vital Signs (24Hr): Vital Signs - 24 hr 12/03/22 17:36 12/04/22 06:00 Temperature 97.6 F Pulse Rate 60 75 Respiratory Rate 18 Blood Pressure 107/71 140/72 H Pulse Oximetry 96 Oxygen Delivery Method Room Air BMI result Body Mass Index 30.0 Labs 12/01/22 12:54 12/01/22 12:54 Labs: Laboratory Results - last 48 hr 12/04/22 07:01 Iron 57 TIBC 348 % Saturation 16 Unsat Iron Binding 291 Medications Medications Current Medications Acetaminophen (Acetaminophen 325 Mg Tablet) 650 mg PO Q6H PRN PRN Reason: Headache/Pain Mild Scale (1-3) Al Hydroxide/Mg Hydroxide (Magnesium Hydrox/Alum Hydrox 30 Ml Oral.Susp) 30 ml PO Q6H PRN PRN Reason: Heartburn/Nausea Aripiprazole (Aripiprazole 10 Mg Tablet) 10 mg PO DAILY [facility] Last Admin: 12/04/22 08:07 Dose: 10 mg Clonidine HCl (Clonidine Hcl 0.2 Mg Tablet) 0.2 mg PO BID PRN; Protocol PRN Reason: Anxiety Last Admin: 12/02/22 21:41 Dose: 0.2 mg Docusate Sodium (Docusate Sodium 100 Mg Capsule) 100 mg PO BEDTIME PRN PRN Reason: Constipation Gabapentin (Gabapentin 600 Mg Tablet) 600 mg PO BID@0900,1500 [facility] Last Admin: 12/04/22 08:07 Dose: 600 mg Gabapentin (Gabapentin 400 Mg Capsule) 800 mg PO BEDTIME [facility] Last Admin: 12/03/22 20:52 Dose: 800 mg Gemfibrozil (Gemfibrozil 600 Mg Tablet) 600 mg PO BIDAC [facility] Last Admin: 12/04/22 08:07 Dose: 600 mg Hydroxyzine HCl (Hydroxyzine Hcl 50 Mg Tablet) 100 mg PO BID PRN PRN Reason: Anxiety Hydroxyzine HCl (Hydroxyzine Hcl 25 Mg Tablet) 25 mg PO Q6H PRN PRN Reason: Anxiety Magnesium Hydroxide (Milk Of Magnesia 30 Ml Oral.Susp) 30 ml PO DAILY PRN PRN Reason: Constipation Melatonin (Melatonin 3 Mg Tablet) 9 mg PO BEDTIME [facility] Last Admin: 12/03/22 20:52 Dose: 9 mg Methadone HCl (Methadone Hcl 20 Mg/2 Ml Oral.Conc) 195 mg PO DAILY [facility] Last Admin: 12/04/22 08:06 Dose: 195 mg Naproxen (Naproxen 500 Mg Tablet) 500 mg PO BID PRN PRN Reason: Headache Last Admin: 12/03/22 21:40 Dose: 500 mg Nicotine (Nicotine 21 Mg Patch.Td24) 21 mg TRANSDERMA DAILY [facility] Last Admin: 12/04/22 08:07 Dose: 21 mg Nicotine Polacrilex (Nicotine Polacrilex 2 Mg Gum) 4 mg BUCCAL Q2H PRN PRN Reason: Nicotine Cravings Last Admin: 12/04/22 08:42 Dose: 4 mg Olanzapine (Olanzapine 5 Mg Tablet) 5 mg PO TID PRN PRN Reason: agitation Paroxetine HCl (Paroxetine Hcl 10 Mg Tablet) 10 mg PO DAILY [facility] Last Admin: 12/04/22 08:07 Dose: 10 mg Paroxetine HCl (Paroxetine Hcl 40 Mg Tablet) 40 mg PO DAILY [facility] Last Admin: 12/04/22 08:07 Dose: 40 mg Prazosin HCl (Prazosin Hcl 1 Mg Capsule) 4 mg PO BEDTIME [facility]; Protocol Last Admin: 12/03/22 20:52 Dose: 4 mg Trazodone HCl (Trazodone Hcl 50 Mg Tablet) 50 mg PO BEDTIME MRX1 PRN PRN Reason: Insomnia Allergies Allergies Allergy/AdvReac Type Severity Reaction Status Date / Time amoxicillin Allergy Hives Verified 10/30/22 13:55 Penicillins [PCN] Allergy Hives Verified 10/30/22 13:55 seafood Allergy Difficulty Verified 11/13/22 10:11 Breathing Assessment & Plan Assessment & Plan (1) Cocaine use disorder, moderate, dependence: Status: Acute Code(s): F14.20 - Cocaine dependence, uncomplicated (2) Opioid use disorder, moderate, dependence: Status: Acute Code(s): F11.20 - Opioid dependence, uncomplicated (3) PTSD (post-traumatic stress disorder): Status: Acute Code(s): F43.10 - Post-traumatic stress disorder, unspecified Plan 31 yo male, history of PTSD, polysubstance use disorder with active methadone maintenance. 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 Asks for help with admission to [facility], application for DMH services and application for disability. Plan: Increase Abilify to 10 mg daily Iron profile Gemfibrozil 600 mg bid (Triglycerides 652) Collateral Contact Aftercare/Outpatient planning. 12/04: Continue current medications and treatment plan. Reason for continued inpatient stay Substantial Risk for: harm to self and rapid decompensation Time Spent With Patient Time: Total time managing care of this patient today ____ minutes.
[2022-12-04 14:25] VITALS: BP 133/81; PULSE 81
[2022-12-04] MEDS: cloNIDine HCL 0.2 MG TABLET PO ×2 (14:26→20:22)
--- NOTE | 2022-12-04 18:55 | PC.NURSE ---
Pt submitted a 3 day notice up on December 08. , ARLEEN, and UR aware.
[2022-12-04 20:21] VITALS: BP 102/59; PULSE 80
[2022-12-04] MEDS: Prazosin HCL 1 MG CAPSULE 4 MG PO (20:22)
[2022-12-04] MEDS: Melatonin 3 MG TABLET 9 MG PO (20:22)
[2022-12-04] MEDS: Gabapentin 400 MG CAPSULE 800 MG PO (20:22)
[2022-12-05] MEDS: ARIPiprazole 10 MG TABLET PO (08:12)
[2022-12-05] MEDS: PARoxetine HCL 10 MG TABLET PO (08:12)
[2022-12-05] MEDS: PARoxetine HCL 40 MG TABLET PO (08:12)
[2022-12-05] MEDS: methADONE HCl 20 MG/2 ML ORAL.CONC 195 MG PO (08:12)
[2022-12-05] MEDS: gemfibroziL 600 MG TABLET PO ×2 (08:12→16:26)
[2022-12-05] MEDS: Gabapentin 600 MG TABLET PO ×2 (08:12→14:17)
[2022-12-05] MEDS: Nicotine 21 MG PATCH.TD24 TRANSDERMA (08:13)
[2022-12-05] MEDS: Nicotine Polacrilex 2 MG GUM 4 MG BUCCAL ×3 (08:16→14:17)
[2022-12-05 08:18] VITALS: BP 108/56; PULSE 88; RESP 18; TEMP 36.4; O2SAT 98
--- NOTE | 2022-12-05 19:42 | HO.PSYCHPN ---
Subjective Subjective Date of Service: 12/05/22 Reason For Visit: Psychosis Interim History: Patient seen and discussed. Patient reports he is improved since admission. He denies any side effects with medications. He is medication compliant. Reports sleep and appetite are good. Denies SI/HI/AVH today. Review of Systems Review of Systems Yes all other systems are reviewed and are negative Constitutional: Reports no additional constitutional complaints, Denies body ache(s), Denies chills, Denies fever(s), Denies headache(s) and Denies weakness Eyes: Reports no additional eye complaints and Denies change in vision Reports system reviewed and no additional complaints, except as documented, Denies dizziness, Denies headache(s), Denies nasal congestion, Denies nasal discharge and Denies neck pain Cardiovascular: Reports no additional cardiovascular complaints, Denies chest pain, Denies leg edema and Denies dyspnea Respiratory: Reports no additional respiratory complaints, Denies cough and Denies dyspnea Gastrointestinal: Reports no additional gastrointestinal complaints, Denies abdominal pain, Denies diarrhea, Denies nausea and Denies vomiting Genitourinary: Denies urinary incontinence Musculoskeletal: Reports no additional musculoskeletal complaints, Denies back pain, Denies arthralgias, Denies joint swelling, Denies neck pain, Denies numbness and Denies tingling Skin/Breast: Reports system reviewed and no additional complaints, except as docu and Denies rash Reports system reviewed and no additional complaints, except as documented, Denies Abnormal speech present, Reports behavioral changes, Denies dizziness, Denies headache(s), Denies numbness, Denies tingling and Denies weakness Psychiatric: Reports abnormal sleep pattern, Reports anxiety, Reports behavioral changes, Reports depression, Reports difficulty concentrating, Reports auditory hallucinations, Reports hopelessness, Reports anhedonia, Reports mood swings, Reports panic attacks, Reports paranoia, Reports visual hallucinations, Reports hallucinations, Denies homicidal ideation and Reports suicidal ideation Mental Status Exam Mental Status Exam Patient Appearance: Appropriate Patient Orientation: Person, Place, Time and Situation Level of Consciousness: Alert Patient Behavior: Appropriate, Talkative, Cooperative, Distractible and Good Eye Contact Mood Description: Depressed, Anxious and Apprehensive Affect Description: Flat Patient Cognition Impaired: No Ability to Follow Directions: Good Speech Pattern: Spontaneous Speech Memory Description: Episodic Impaired Diagnostics Vital Signs (24Hr): Vital Signs - 24 hr 12/04/22 20:21 12/05/22 08:18 Temperature 97.5 F Pulse Rate 80 88 Respiratory Rate 18 Blood Pressure 102/59 L 108/56 L Pulse Oximetry 98 Oxygen Delivery Method Room Air BMI result Body Mass Index 30.0 Labs 12/01/22 12:54 12/01/22 12:54 Labs: Laboratory Results - last 48 hr 12/04/22 07:01 Iron 57 TIBC 348 % Saturation 16 Unsat Iron Binding 291 Medications Medications Current Medications Acetaminophen (Acetaminophen 325 Mg Tablet) 650 mg PO Q6H PRN PRN Reason: Headache/Pain Mild Scale (1-3) Al Hydroxide/Mg Hydroxide (Magnesium Hydrox/Alum Hydrox 30 Ml Oral.Susp) 30 ml PO Q6H PRN PRN Reason: Heartburn/Nausea Aripiprazole (Aripiprazole 10 Mg Tablet) 10 mg PO DAILY [facility] Last Admin: 12/05/22 08:12 Dose: 10 mg Clonidine HCl (Clonidine Hcl 0.2 Mg Tablet) 0.2 mg PO BID PRN; Protocol PRN Reason: Anxiety Last Admin: 12/04/22 20:22 Dose: 0.2 mg Docusate Sodium (Docusate Sodium 100 Mg Capsule) 100 mg PO BEDTIME PRN PRN Reason: Constipation Gabapentin (Gabapentin 600 Mg Tablet) 600 mg PO BID@0900,1500 [facility] Last Admin: 12/05/22 14:17 Dose: 600 mg Gabapentin (Gabapentin 400 Mg Capsule) 800 mg PO BEDTIME [facility] Last Admin: 12/04/22 20:22 Dose: 800 mg Gemfibrozil (Gemfibrozil 600 Mg Tablet) 600 mg PO BIDAC [facility] Last Admin: 12/05/22 16:26 Dose: 600 mg Hydroxyzine HCl (Hydroxyzine Hcl 50 Mg Tablet) 100 mg PO BID PRN PRN Reason: Anxiety Hydroxyzine HCl (Hydroxyzine Hcl 25 Mg Tablet) 25 mg PO Q6H PRN PRN Reason: Anxiety Magnesium Hydroxide (Milk Of Magnesia 30 Ml Oral.Susp) 30 ml PO DAILY PRN PRN Reason: Constipation Melatonin (Melatonin 3 Mg Tablet) 9 mg PO BEDTIME [facility] Last Admin: 12/04/22 20:22 Dose: 9 mg Methadone HCl (Methadone Hcl 20 Mg/2 Ml Oral.Conc) 195 mg PO DAILY [facility] Last Admin: 12/05/22 08:12 Dose: 195 mg Naproxen (Naproxen 500 Mg Tablet) 500 mg PO BID PRN PRN Reason: Headache Last Admin: 12/03/22 21:40 Dose: 500 mg Nicotine (Nicotine 21 Mg Patch.Td24) 21 mg TRANSDERMA DAILY [facility] Last Admin: 12/05/22 08:13 Dose: 21 mg Nicotine Polacrilex (Nicotine Polacrilex 2 Mg Gum) 4 mg BUCCAL Q2H PRN PRN Reason: Nicotine Cravings Last Admin: 12/05/22 14:17 Dose: 4 mg Olanzapine (Olanzapine 5 Mg Tablet) 5 mg PO TID PRN PRN Reason: agitation Paroxetine HCl (Paroxetine Hcl 10 Mg Tablet) 10 mg PO DAILY [facility] Last Admin: 12/05/22 08:12 Dose: 10 mg Paroxetine HCl (Paroxetine Hcl 40 Mg Tablet) 40 mg PO DAILY [facility] Last Admin: 12/05/22 08:12 Dose: 40 mg Prazosin HCl (Prazosin Hcl 1 Mg Capsule) 4 mg PO BEDTIME [facility]; Protocol Last Admin: 12/04/22 20:22 Dose: 4 mg Trazodone HCl (Trazodone Hcl 50 Mg Tablet) 50 mg PO BEDTIME MRX1 PRN PRN Reason: Insomnia Allergies Allergies Allergy/AdvReac Type Severity Reaction Status Date / Time amoxicillin Allergy Hives Verified 10/30/22 13:55 Penicillins [PCN] Allergy Hives Verified 10/30/22 13:55 seafood Allergy Difficulty Verified 11/13/22 10:11 Breathing Assessment & Plan Assessment & Plan (1) Cocaine use disorder, moderate, dependence: Status: Acute Code(s): F14.20 - Cocaine dependence, uncomplicated (2) Opioid use disorder, moderate, dependence: Status: Acute Code(s): F11.20 - Opioid dependence, uncomplicated (3) PTSD (post-traumatic stress disorder): Status: Acute Code(s): F43.10 - Post-traumatic stress disorder, unspecified Plan 31 yo male, history of PTSD, polysubstance use disorder with active methadone maintenance. 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 Asks for help with admission to [facility], application for [facility]H services and application for disability. Plan: Increase Abilify to 10 mg daily Iron profile Gemfibrozil 600 mg bid (Triglycerides 652) Collateral Contact Aftercare/Outpatient planning. 12/04: Continue current medications and treatment plan. 12/05: Continue current medications and treatment plan. Reason for continued inpatient stay Substantial Risk for: harm to self, inability to function and rapid decompensation Time Spent With Patient Time: Total time managing care of this patient today ____ minutes.
[2022-12-05 20:05] VITALS: BP 111/68; PULSE 82
[2022-12-05] MEDS: Prazosin HCL 1 MG CAPSULE 4 MG PO (20:20)
[2022-12-05] MEDS: Gabapentin 400 MG CAPSULE 800 MG PO (20:20)
[2022-12-05] MEDS: cloNIDine HCL 0.2 MG TABLET PO (20:21)
[2022-12-05] MEDS: Melatonin 3 MG TABLET 9 MG PO (20:21)
[2022-12-06 08:20] VITALS: BP 108/56; PULSE 81; RESP 18; TEMP 36.3; O2SAT 99
[2022-12-06] MEDS: methADONE HCl 20 MG/2 ML ORAL.CONC 195 MG PO (08:27)
[2022-12-06] MEDS: gemfibroziL 600 MG TABLET PO ×2 (08:28→16:26)
[2022-12-06] MEDS: PARoxetine HCL 40 MG TABLET PO (08:29)
[2022-12-06] MEDS: Gabapentin 600 MG TABLET PO ×2 (08:29→14:08)
[2022-12-06] MEDS: PARoxetine HCL 10 MG TABLET PO (08:29)
[2022-12-06] MEDS: Nicotine 21 MG PATCH.TD24 TRANSDERMA (08:29)
[2022-12-06] MEDS: ARIPiprazole 10 MG TABLET PO (08:29)
[2022-12-06] MEDS: Nicotine Polacrilex 2 MG GUM 4 MG BUCCAL ×3 (08:56→21:27)
[2022-12-06] MEDS: NaPROXEN 500 MG TABLET PO (12:58)
[2022-12-06] MEDS: Acetaminophen 325 MG TABLET 650 MG PO (12:59)
--- NOTE | 2022-12-06 16:42 | HO.PSYCHPN ---
Subjective Subjective Date of Service: 12/06/22 Reason For Visit: Psychosis Subjective Notes: Conditional Voluntary and 3 Day Healthcare Proxy: No Guardianship: No Medical Problems Affecting Mental Status: No Interim History: Pt reports feeling well, meds re-established, prepared to discharge to return to [facility]. [facility] application is completed by Ankit DAVID. Pt has therapy appointments scheduled. Discussed discharge for 12/07/22 which he is agreeable with. Medication Compliance: Yes Side effects from medications: No Attending Groups: Yes Review of Systems Acute medical concerns: No Medical Review of Systems: unchanged Mental Status Exam Mental Status Exam Patient Appearance: Appropriate Patient Orientation: Person, Place, Time and Situation Level of Consciousness: Alert Patient Behavior: Appropriate, Talkative, Cooperative and Good Eye Contact Mood Description: Appropriate Affect Description: Appropriate Patient Cognition Impaired: No Ability to Follow Directions: Good Speech Pattern: Spontaneous Speech Memory Description: Intact Hallucinations: None Delusions: Not Present Thought Process: Intact and Goal Oriented Thought Content: positive for Goal Oriented Judgement: Good Diagnostics Vital Signs (24Hr): Vital Signs - 24 hr 12/05/22 20:05 12/06/22 08:20 Temperature 97.4 F Pulse Rate 82 81 Respiratory Rate 18 Blood Pressure 111/68 108/56 L Pulse Oximetry 99 Oxygen Delivery Method Room Air BMI result Body Mass Index 30.0 Labs 12/01/22 12:54 12/01/22 12:54 Medications Medications Current Medications Acetaminophen (Acetaminophen 325 Mg Tablet) 650 mg PO Q6H PRN PRN Reason: Headache/Pain Mild Scale (1-3) Last Admin: 12/06/22 12:59 Dose: 650 mg Al Hydroxide/Mg Hydroxide (Magnesium Hydrox/Alum Hydrox 30 Ml Oral.Susp) 30 ml PO Q6H PRN PRN Reason: Heartburn/Nausea Aripiprazole (Aripiprazole 10 Mg Tablet) 10 mg PO DAILY [facility] Last Admin: 12/06/22 08:29 Dose: 10 mg Clonidine HCl (Clonidine Hcl 0.2 Mg Tablet) 0.2 mg PO BID PRN; Protocol PRN Reason: Anxiety Last Admin: 12/05/22 20:21 Dose: 0.2 mg Docusate Sodium (Docusate Sodium 100 Mg Capsule) 100 mg PO BEDTIME PRN PRN Reason: Constipation Gabapentin (Gabapentin 600 Mg Tablet) 600 mg PO BID@0900,1500 [facility] Last Admin: 12/06/22 14:08 Dose: 600 mg Gabapentin (Gabapentin 400 Mg Capsule) 800 mg PO BEDTIME BESSIE Last Admin: 12/05/22 20:20 Dose: 800 mg Gemfibrozil (Gemfibrozil 600 Mg Tablet) 600 mg PO BIDAC BESSIE Last Admin: 12/06/22 16:26 Dose: 600 mg Hydroxyzine HCl (Hydroxyzine Hcl 50 Mg Tablet) 100 mg PO BID PRN PRN Reason: Anxiety Hydroxyzine HCl (Hydroxyzine Hcl 25 Mg Tablet) 25 mg PO Q6H PRN PRN Reason: Anxiety Magnesium Hydroxide (Milk Of Magnesia 30 Ml Oral.Susp) 30 ml PO DAILY PRN PRN Reason: Constipation Melatonin (Melatonin 3 Mg Tablet) 9 mg PO BEDTIME BESSIE Last Admin: 12/05/22 20:21 Dose: 9 mg Methadone HCl (Methadone Hcl 20 Mg/2 Ml Oral.Conc) 195 mg PO DAILY BESSIE Last Admin: 12/06/22 08:27 Dose: 195 mg Naproxen (Naproxen 500 Mg Tablet) 500 mg PO BID PRN PRN Reason: Headache Last Admin: 12/06/22 12:58 Dose: 500 mg Nicotine (Nicotine 21 Mg Patch.Td24) 21 mg TRANSDERMA DAILY BESSIE Last Admin: 12/06/22 08:29 Dose: 21 mg Nicotine Polacrilex (Nicotine Polacrilex 2 Mg Gum) 4 mg BUCCAL Q2H PRN PRN Reason: Nicotine Cravings Last Admin: 12/06/22 08:56 Dose: 4 mg Olanzapine (Olanzapine 5 Mg Tablet) 5 mg PO TID PRN PRN Reason: agitation Paroxetine HCl (Paroxetine Hcl 10 Mg Tablet) 10 mg PO DAILY BESSIE Last Admin: 12/06/22 08:29 Dose: 10 mg Paroxetine HCl (Paroxetine Hcl 40 Mg Tablet) 40 mg PO DAILY BESSIE Last Admin: 12/06/22 08:29 Dose: 40 mg Prazosin HCl (Prazosin Hcl 1 Mg Capsule) 4 mg PO BEDTIME BESSIE; Protocol Last Admin: 12/05/22 20:20 Dose: 4 mg Trazodone HCl (Trazodone Hcl 50 Mg Tablet) 50 mg PO BEDTIME MRX1 PRN PRN Reason: Insomnia Allergies Allergies Allergy/AdvReac Type Severity Reaction Status Date / Time amoxicillin Allergy Hives Verified 10/30/22 13:55 Penicillins [PCN] Allergy Hives Verified 10/30/22 13:55 seafood Allergy Difficulty Verified 11/13/22 10:11 Breathing Assessment & Plan Assessment & Plan (1) Cocaine use disorder, moderate, dependence: Status: Acute Code(s): F14.20 - Cocaine dependence, uncomplicated (2) Opioid use disorder, moderate, dependence: Status: Acute Code(s): F11.20 - Opioid dependence, uncomplicated (3) PTSD (post-traumatic stress disorder): Status: Acute Code(s): F43.10 - Post-traumatic stress disorder, unspecified Plan 31 yo male, history of PTSD, polysubstance use disorder with active methadone maintenance. 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 Asks for help with admission to [facility], application for DMH services and application for disability. Plan: Increase Abilify to 10 mg daily Iron profile Gemfibrozil 600 mg bid (Triglycerides 652) Collateral Contact Aftercare/Outpatient planning. 12/04: Continue current medications and treatment plan. 12/05: Continue current medications and treatment plan. 12/06/22: Discharge 12/07/22. Patient educated on: medication risk/benefits and therapeutic strategies Informed Consent: understands Reason for continued inpatient stay Substantial Risk for: rapid decompensation Time Spent With Patient Time: Total time managing care of this patient today ____ minutes.
[2022-12-06 17:57] VITALS: BP 123/72; PULSE 97; TEMP 36.6; O2SAT 97
[2022-12-06 20:20] VITALS: BP 117/84
[2022-12-06] MEDS: Melatonin 3 MG TABLET 9 MG PO (20:25)
[2022-12-06] MEDS: Prazosin HCL 1 MG CAPSULE 4 MG PO (20:25)
[2022-12-06] MEDS: cloNIDine HCL 0.2 MG TABLET PO (20:25)
[2022-12-06] MEDS: Gabapentin 400 MG CAPSULE 800 MG PO (20:26)
[2022-12-06] MEDS: hydrOXYzine HCL 50 MG TABLET 100 MG PO (22:39)
[2022-12-07 08:00] VITALS: BP 97/61; PULSE 55; RESP 16; TEMP 36.4; O2SAT 97
[2022-12-07] MEDS: methADONE HCl 20 MG/2 ML ORAL.CONC 195 MG PO (08:10)
[2022-12-07] MEDS: PARoxetine HCL 40 MG TABLET PO (08:12)
[2022-12-07] MEDS: PARoxetine HCL 10 MG TABLET PO (08:12)
[2022-12-07] MEDS: Gabapentin 600 MG TABLET PO (08:12)
[2022-12-07] MEDS: ARIPiprazole 10 MG TABLET PO (08:12)
[2022-12-07] MEDS: gemfibroziL 600 MG TABLET PO (08:12)
[2022-12-07] MEDS: Nicotine 21 MG PATCH.TD24 TRANSDERMA (08:13)
[2022-12-07] MEDS: Nicotine Polacrilex 2 MG GUM 4 MG BUCCAL (08:54)
--- NOTE | 2022-12-07 16:55 | PM.PSYDC ---
DS: Providers Provider Date of Service: 12/07/22 Date of admission: 12/02/22 13:08 Date of discharge: 12/07/22 Primary care physician: Terrence Physician Admitting clinician: Carly Zamorano Attending physician on admission: Tyree Aviles Attending physician on discharge: Tyree Aviles Discharging clinician: Carly Zamorano DS: Diagnosis Discharge Diagnosis (1) Cocaine use disorder, moderate, dependence: Status: Acute (2) Opioid use disorder, moderate, dependence: Status: Acute (3) PTSD (post-traumatic stress disorder): Status: Acute DS: Medications Discharge Medications Home Medications: Home Medications Medication Instructions Recorded Confirmed methadone 10 mg/mL oral concentrate 195 mg PO DAILY 12/01/22 12/03/22 Previous Rx's Medication Instructions Recorded aripiprazole 10 mg tablet 10 mg PO DAILY #30 tabs 12/06/22 clonidine HCl 0.1 mg tablet 0.2 mg PO BID PRN Anxiety #60 tabs 12/06/22 docusate sodium 100 mg capsule 100 mg PO BEDTIME PRN Constipation 12/06/22 30 days #30 caps gabapentin 400 mg capsule 800 mg PO BEDTIME #60 caps 12/06/22 gabapentin 600 mg tablet 600 mg PO BID@0900,1500 #60 tabs 12/06/22 gemfibrozil 600 mg tablet 600 mg PO BIDAC #28 tabs 12/06/22 hydroxyzine pamoate 50 mg capsule 100 mg PO BID PRN Anxiety #60 caps 12/06/22 melatonin 3 mg tablet 9 mg PO BEDTIME #60 tabs 12/06/22 methadone 10 mg/mL oral 195 mg (19.5 mL) PO DAILY #0 mL 12/06/22 concentrate (Methadose) naproxen 500 mg tablet 500 mg PO BID PRN Headache #30 tabs 12/06/22 nicotine (polacrilex) 2 mg gum 4 mg PO Q1H PRN Smoking Cessation 12/06/22 #60 ea nicotine 21 mg/24 hr daily 1 patch topical DAILY #30 ea 12/06/22 transdermal patch paroxetine HCl 10 mg tablet 10 mg PO DAILY #30 tabs 12/06/22 paroxetine HCl 40 mg tablet 40 mg PO DAILY #30 tabs 12/06/22 prazosin 2 mg capsule 4 mg PO BEDTIME #60 caps 12/06/22 Mental Status Exam Mental Status Exam Patient Appearance: Appropriate Patient Orientation: Person, Place, Time and Situation Level of Consciousness: Alert Patient Behavior: Appropriate, Talkative, Cooperative and Good Eye Contact Mood Description: Appropriate Affect Description: Appropriate Patient Cognition Impaired: No Ability to Follow Directions: Good Speech Pattern: Spontaneous Speech Memory Description: Intact Hallucinations: None Delusions: Not Present Thought Process: Intact and Goal Oriented Thought Content: positive for Goal Oriented Judgement: Good Data Data Completed and Pending Completed studies during hospitalization [Text1]: 12/01/22 12/01/22 12/01/22 12:54 12:54 12:54 WBC 7.6 RBC 3.76 L Hgb 10.9 L Hct 33.5 L MCV 89.1 MCH 29.0 MCHC 32.5 RDW 13.4 Plt Count 185 D MPV 11.5 Immature Gran % (Auto) 0.5 H Neut % (Auto) 59.5 Lymph % (Auto) 25.7 [place] % (Auto) 9.7 Eos % (Auto) 4.1 H Baso % (Auto) 0.5 Lymph # (Auto) 2.0 [place] # (Auto) 0.7 Eos # (Auto) 0.3 Baso # (Auto) 0.0 Abs Immat Gran (auto) 0.04 H Absolute Neuts (auto) 4.5 Absolute Nucleated RBC 0.000 Nucleated RBC % (auto) 0.0 Sodium 142 Potassium 4.1 Chloride 103 Carbon Dioxide 27 Anion Gap 16 BUN 19 H Creatinine 0.81 Estim Creat Clear Calc 152.7 Estimated GFR > 60 Random Glucose 100 Calcium 9.7 D Iron TIBC % Saturation Unsat Iron Binding Total Bilirubin 0.4 Direct Bilirubin 0.1 AST 47 H ALT 35 Alkaline Phosphatase 56 Total Protein 7.4 Albumin 4.2 Urine Color Urine Appearance Urine pH Ur Specific [place] Urine Protein Urine Glucose (UA) Urine Ketones Urine Blood Urine Nitrite Ur Leukocyte Esterase Urine Opiates Screen Urine Fentanyl Screen Ur Barbiturates Screen Ur Phencyclidine Scrn Ur Amphetamines Screen U Benzodiazepines Scrn Urine Cocaine Screen U Marijuana (THC) Screen Ethyl Alcohol < 10 COVID-19 (JAMIE) COVID-19 Clin Com 12/01/22 12/01/22 12/01/22 12:56 17:56 17:56 WBC RBC Hgb Hct MCV MCH MCHC RDW Plt Count MPV Immature Gran % (Auto) Neut % (Auto) Lymph % (Auto) [place] % (Auto) Eos % (Auto) Baso % (Auto) Lymph # (Auto) [place] # (Auto) Eos # (Auto) Baso # (Auto) Abs Immat Gran (auto) Absolute Neuts (auto) Absolute Nucleated RBC Nucleated RBC % (auto) Sodium Potassium Chloride Carbon Dioxide Anion Gap BUN Creatinine Estim Creat Clear Calc Estimated GFR Random Glucose Calcium Iron TIBC % Saturation Unsat Iron Binding Total Bilirubin Direct Bilirubin AST ALT Alkaline Phosphatase Total Protein Albumin Urine Color Yellow Urine Appearance Clear Urine pH 6.0 Ur Specific [place] >= 1.030 H Urine Protein Trace Urine Glucose (UA) Negative Urine Ketones Negative Urine Blood Negative Urine Nitrite Negative Ur Leukocyte Esterase Negative Urine Opiates Screen POSITIVE H Urine Fentanyl Screen POSITIVE H Ur Barbiturates Screen Not Detected Ur Phencyclidine Scrn Not Detected Ur Amphetamines Screen Not Detected U Benzodiazepines Scrn Not Detected Urine Cocaine Screen POSITIVE H U Marijuana (THC) Screen POSITIVE H Ethyl Alcohol COVID-19 (JAMIE) Negative COVID-19 [employer] Com See Note 12/04/22 07:01 WBC RBC Hgb Hct MCV MCH MCHC RDW Plt Count MPV Immature Gran % (Auto) Neut % (Auto) Lymph % (Auto) [place] % (Auto) Eos % (Auto) Baso % (Auto) Lymph # (Auto) [place] # (Auto) Eos # (Auto) Baso # (Auto) Abs Immat Gran (auto) Absolute Neuts (auto) Absolute Nucleated RBC Nucleated RBC % (auto) Sodium Potassium Chloride Carbon Dioxide Anion Gap BUN Creatinine Estim Creat Clear Calc Estimated GFR Random Glucose Calcium Iron 57 TIBC 348 % Saturation 16 Unsat Iron Binding 291 Total Bilirubin Direct Bilirubin AST ALT Alkaline Phosphatase Total Protein Albumin Urine Color Urine Appearance Urine pH Ur Specific [place] Urine Protein Urine Glucose (UA) Urine Ketones Urine Blood Urine Nitrite Ur Leukocyte Esterase Urine Opiates Screen Urine Fentanyl Screen Ur Barbiturates Screen Ur Phencyclidine Scrn Ur Amphetamines Screen U Benzodiazepines Scrn Urine Cocaine Screen U Marijuana (THC) Screen Ethyl Alcohol COVID-19 (JAMIE) COVID-19 [employer] Com DS: Summary Hospital Course Hospital Course: Admission to adult psychiatry for exacerbation of PTSD, DID, cocaine, opiate use disorders with relapse and SI. Pt reports homelessness and needing to panhandle for survival. Requested assistance with application for SSDI and DMH services. Medications were assessed and changes completed. Pt was directed to resources to meet his needs and referred to [facility] for ongoing out patient care, support and services to assist him in meeting his goals. Time spent discussing smoking cessation with patient: 3 to 10 minutes Status at Discharge Functional status at discharge: independent ambulation Overall status at discharge: patient is progressing back to baseline Time Spent with Patient Time attestation: Total time managing care of this patient today ____ minutes. Time spent: Greater than 30 minutes Discharge Plan Discharge Anticipated Discharge Date/Time: 12/07/22 12:24 Patient Disposition: Longterm Discharge Diagnosis: PTSD Opiate use disorder-Methadone maintenance Cocaine use disorder Referrals: OLGA CONSTANTINO, INTAKE [Other] - 12/09/22 11:00 am (IN PERSON) [facility] [Other] - 1 Week (If you have any issues or concerns, please give the [facility] a phone call or utilize their walk in services. If you feel it is an emergency, please go to the ER. ) Discharge Medications: New gemfibrozil 600 mg Tablet 600 mg PO BIDAC Qty: 28 0RF aripiprazole 10 mg Tablet 10 mg PO DAILY Qty: 30 0RF Continued methadone 10 mg/mL Concentrate 195 mg PO DAILY clonidine HCl 0.1 mg tablet 0.2 mg PO BID PRN (Reason: Anxiety) Qty: 60 0RF gabapentin 600 mg tablet 600 mg PO BID@0900,1500 Qty: 60 0RF paroxetine HCl 10 mg tablet 10 mg PO DAILY Qty: 30 0RF Rx Instructions: tdd = 50 mg nicotine (polacrilex) 2 mg gum 4 mg PO Q1H PRN (Reason: Smoking Cessation) Qty: 60 0RF gabapentin 400 mg capsule 800 mg PO BEDTIME Qty: 60 0RF hydroxyzine pamoate 50 mg capsule 100 mg PO BID PRN (Reason: Anxiety) Qty: 60 0RF melatonin 3 mg tablet 9 mg PO BEDTIME Qty: 60 0RF nicotine 21 mg/24 hr patch 24 hour 1 patch topical DAILY Qty: 30 0RF docusate sodium 100 mg Capsule 100 mg PO BEDTIME PRN (Reason: Constipation) 30 Days Qty: 30 0RF paroxetine HCl 40 mg tablet 40 mg PO DAILY Qty: 30 0RF Rx Instructions: tdd = 50 mg prazosin 2 mg capsule 4 mg PO BEDTIME Qty: 60 0RF naproxen 500 mg tablet 500 mg PO BID PRN (Reason: Headache) Qty: 30 0RF Discontinued aripiprazole 5 mg tablet 5 mg PO DAILY Discharge Orders: Discharge Order (Routine); Ordered 12/06/22 Ordered By: Carly Zamorano Diet: Advance to usual diet Activity on Discharge: As tolerated Stand Alone Forms: Patient Portal Discharge page, Community Support Care Plan Goals: Maintain mood and behavioral stabilization Take medications as directed Health Concerns: Maintain mood and behavioral stabilization Plan of Treatment: Maintain mood and behavioral stabilization Take medications as directed Assessment: Pt interviewed prior to discharge and found to be fully oriented and without any SI/HI. Pt has insight and demonstrates good judgment in terms of wanting to pursue treatment Pt is not in imminent risk of harm to self or others and has a safety plan that includes presenting to the closest ER or calling 911 if feeling unsafe Pt has been observed closely by nursing and unit staff throughout admission Pt has not engaged in any behaviors that suggest dangerousness to self or others and has demonstrated appropriate behaviors and impulse control. Discharge Date/Time: 12/07/22 10:55
== END 2022-12-07 10:55 | disposition home or self-care (01) | DRG 755 ==
LOC: HO.ED 14:53 → HO.PM5 12-02 13:12
PROVIDERS: Nurse Practitioner Family; Admitting Provider Psychiatry & Neurology Psychiatry; Emergency Provider Emergency Medicine; Visit Provider Clinical Nurse Specialist Psychiatric/Mental Health, Adult
DX: F43.10 Post-traumatic stress disorder, unspecified (principal); R45.851 Suicidal ideations; F11.20 Opioid dependence, uncomplicated; F14.20 Cocaine dependence, uncomplicated; F17.210 Nicotine dependence, cigarettes, uncomplicated; Z20.822 Contact with and (suspected) exposure to COVID-19; Z71.6 Tobacco abuse counseling; Z59.02 Unsheltered homelessness; Z87.820 Personal history of traumatic brain injury; Z88.0 Allergy status to penicillin; Z79.899 Other long term (current) drug therapy
CPT/HCPCS: 36415; 80048; 80076; 80307; 81003; 83540; 85025; 87635; 93005; 99285; S9485

== ENCOUNTER → 2022-12-02 13:08 | Outpatient (BNV) | payer OTHER, SELFPAY | PROVIDERS: Admitting Provider Psychiatry & Neurology Psychiatry; Emergency Provider Emergency Medicine; Visit Provider Psychiatry & Neurology Psychiatry | DX: F14.20 Cocaine dependence, uncomplicated (principal); F11.20 Opioid dependence, uncomplicated; F43.11 Post-traumatic stress disorder, acute | CPT/HCPCS: 90792; 99231; 99239 ==

== ENCOUNTER 2022-12-12 10:41 | Emergency (ER) | payer OTHER, SELFPAY ==
[2022-12-12 10:52] VITALS: BP 120/69; PULSE 93; RESP 17; TEMP 37.1; O2SAT 95; BMI 27.3
--- NOTE | 2022-12-12 12:49 | ED.PSYCH ---
HPI - Psych General Chief Complaint: Psychiatric Symptoms Stated Complaint: SI Time Seen by Provider: 12/12/22 10:51 Source: patient Limitations: no limitations History of Present Illness HPI Narrative: 31-year-old male who presents emergency department for evaluation of suicidal ideation, hearing voices and cocaine use disorder. Patient states that he has dissociative identity disorder and he constantly hears voices. He states that the voices are becoming more frequent. He states that he has to lopes the voices to keep his identity. Patient states he is feeling suicidal but does not have a plan. He states he has overdosed on heroin in the past. The patient uses crack cocaine and states that he used 10 dollars worth of crack cocaine yesterday. States that he has been up all night and has had difficulty sleeping. He denied fever, chills, rhinorrhea, sore throat, cough, chest pain, shortness of breath, nausea, vomiting or diarrhea. Patient was recently admitted to the psychiatric service here from 12/03/2022 until 12/07/2022, discharged 5 days prior to evaluation. Related Data Home Medications Medication Instructions Recorded Confirmed methadone 10 mg/mL oral concentrate 195 mg PO DAILY 12/01/22 12/03/22 Previous Rx's Medication Instructions Recorded aripiprazole 10 mg tablet 10 mg PO DAILY #30 tabs 12/06/22 clonidine HCl 0.1 mg tablet 0.2 mg PO BID PRN Anxiety #60 tabs 12/06/22 docusate sodium 100 mg capsule 100 mg PO BEDTIME PRN Constipation 12/06/22 30 days #30 caps gabapentin 400 mg capsule 800 mg PO BEDTIME #60 caps 12/06/22 gabapentin 600 mg tablet 600 mg PO BID@0900,1500 #60 tabs 12/06/22 gemfibrozil 600 mg tablet 600 mg PO BIDAC #28 tabs 12/06/22 hydroxyzine pamoate 50 mg capsule 100 mg PO BID PRN Anxiety #60 caps 12/06/22 melatonin 3 mg tablet 9 mg PO BEDTIME #60 tabs 12/06/22 naproxen 500 mg tablet 500 mg PO BID PRN Headache #30 tabs 12/06/22 nicotine (polacrilex) 2 mg gum 4 mg PO Q1H PRN Smoking Cessation 12/06/22 #60 ea nicotine 21 mg/24 hr daily 1 patch topical DAILY #30 ea 12/06/22 transdermal patch paroxetine HCl 10 mg tablet 10 mg PO DAILY #30 tabs 12/06/22 paroxetine HCl 40 mg tablet 40 mg PO DAILY #30 tabs 12/06/22 prazosin 2 mg capsule 4 mg PO BEDTIME #60 caps 12/06/22 Allergies Allergy/AdvReac Type Severity Reaction Status Date / Time amoxicillin Allergy Hives Verified 12/12/22 10:52 Penicillins [PCN] Allergy Hives Verified 12/12/22 10:52 seafood Allergy Difficulty Verified 12/12/22 10:52 Breathing Review of Systems Review of Systems: Yes all other systems are reviewed and are negative [facility] Past Medical History [facility] Narrative: Social history: He does smoke cigarettes, denies alcohol use, he admits to using crack cocaine the used 10 dollars worth yesterday. He is in a methadone program-[facility] and [place], and he states that he takes 195 mg of methadone daily. He received his methadone days today. Medical History Mood disorder Polysubstance (including opioids) dependence, daily use PTSD (post-traumatic stress disorder) Social History Social History Household Members: Other Household Members Other:: homeless Housing: Homeless Do you presently have visiting nurse or other home services: No Alcohol intake: never Patient Tobacco Use Status: Current everyday Tobacco user Tobacco use type: Cigarette Cigarette Packs Per Day: 1 Cigarettes Per Day: 20.0 Years Smoked: 20 e-Cigarette/Vaping Use: Former Use Second Hand Smoke Exposure: Yes Substance Use Type: Crack/Cocaine, Heroin, IV Drugs, Marijuana and Caffiene Advance Directives: No Advance Directives Information Provided: Yes Healthcare Proxy: No Guardian: No service: No Current occupational status: unemployed Sexual orientation: Straight/Heterosexual Physical Exam Vital Signs: Vital Signs: Last Vital Signs Temp 98.5 F 12/12/22 20:54 Pulse 68 12/12/22 20:54 Resp 17 12/13/22 06:22 BP 125/61 12/12/22 20:54 Pulse Ox 97 12/12/22 20:54 O2 Del Method Room Air 12/12/22 20:54 BMI result Body Mass Index 27.3 Const: General: cooperative and no acute distress Orientation/consciousness: oriented to person and oriented to place Limitations: no limitations HEENT: Head: Yes normal to inspection, Yes normocephalic and Yes atraumatic Ears: external ears normal General nose exam: Normal external nose present Face and sinus: Yes normal facial exam Mouth: Normal oral and palatal mucosa present Throat: Yes posterior oropharynx normal Eyes: General: appearance normal, both eyes and all related structures Pupils: Equal, round and reactive pupils present Neck: Neck: Yes normal visual inspection, Yes no lymphadenopathy, Yes trachea midline and Yes supple Chest: Chest palpation & inspection: normal inspection of the chest and normal palpation of entire chest wall Resp: Effort & Inspection: normal respiratory effort and able to speak in complete sentences Auscultation: clear to auscultation bilaterally Cardio: Rate: regular rate Rhythm: regular rhythm Heart sounds: S1 normal heart sound present, S2 normal heart sound present and no murmurs GI: Inspection: Yes normal to inspection Palpation (GI): Soft to palpation, nontender and no guarding Auscultation: normal bowel sounds : General: Yes no CVA tenderness Back/Spine/Pelvis: Back: no CVA tenderness Skin: General skin exam: no rashes or lesions noted Neuro: General: oriented to person and oriented to place Cranial nerves: Yes CN's II-XII intact bilaterally and Yes Equal, round and reactive pupils present Cognition (Neuro): normal cognition Motor exam (neuro): 5/5 motor strength present throughout Extrem: General: Yes normal to inspection Psych: Appearance: grossly normal Speech and movement: Normal speech and movement present Affect: normal affect Attitude: cooperative Thought process: Normal thought process present Thought content: Suicidality present (No plan) and Hallucination(s) present auditory (Chronic) Course Reevaluation(s) Reevaluation #1: Patient is seen by the care team and cleared for discharge to community. Time: 01:41 Medical Decision Making Medical Decision Making MDM Narrative: 31-year-old male who presents emergency department for evaluation of suicidal ideation, hearing voices and cocaine use disorder. Patient states that he has dissociative identity disorder and has chronic auditory hallucinations which are getting worse. He states that he is battling the voices in his head to maintain control. He states he is suicidal but does not have a plan. He has attempted to intention overdose on heroin in the past when he is suicidal. He does admit to using crack cocaine yesterday. His review of systems is negative. Exam was unremarkable. I ordered following test: CBC, CMP, COVID-19, urine drug screen, alcohol level. Care team consult was ordered. 12/13/2022, 08:20 hours: Patient was evaluated by the care team and was felt that he did not require inpatient services. Patient's laboratory evaluation was unremarkable except for tox screen which is positive for fentanyl, opiates, cocaine and THC. The patient is in a methadone clinic. He is advised to talk to the clinic about increasing his methadone dose to help prevent relapse. Given the positive tox screen he was discharged home with an intranasal Narcan rescue kit and instructions on how to use it and to make sure that if he has to use drugs that there was a sober person that can save his life with this medication in the event that he stops breathing. Differential Diagnosis Differential diagnosis includes was not limited to suicidal ideation, depression, polysubstance use disorder, electrolyte abnormality, anemia. Urine tox screen was positive for opiates, fentanyl, cocaine and marijuana. Admission/Observation Consideration of admission/observation: Escalation of care including admission/observation considered Lab Data MDM Lab Attestation statement: I reviewed the patient's lab results. My interpretation patient's laboratory evaluation is as follows: CBC , BMP, LFTs were normal. Urine tox screen was positive for opiates, fentanyl, cocaine, marijuana. 12/12/22 13:50 12/12/22 13:50 Labs: Lab Results 12/12/22 12/12/22 12/12/22 Range/Units 13:50 13:50 13:50 WBC 6.7 (4.8-10.8) X10*3/uL RBC 4.17 L (4.60-5.80) X10*6/uL Hgb 12.2 L (14.0-18.0) g/dl Hct 37.3 L (42.0-52.0) % MCV 89.4 (80.0-98.0) fL MCH 29.3 (27.0-33.0) pg MCHC 32.7 (31.0-36.0) g/dl RDW 13.4 (11.0-16.0) % Plt Count 216 (160-400) X10*3/uL MPV 10.9 (9.4-12.4) fL Immature Gran % (Auto) 0.1 (0.0-0.4) % Neut % (Auto) 43.0 L (45-73) % Lymph % (Auto) 37.5 (20-40) % [place] % (Auto) 10.9 (2-11) % Eos % (Auto) 7.9 H (0-4) % Baso % (Auto) 0.6 (0-2) % Lymph # (Auto) 2.5 (1.2-4.9) X10*3/uL [place] # (Auto) 0.7 (0.1-1.2) X10*3/uL Eos # (Auto) 0.5 H (0.0-0.4) X10*3/uL Baso # (Auto) 0.0 (0.0-0.2) X10*3/uL Abs Immat Gran (auto) 0.01 (0.00-0.03) X10*3/uL Absolute Neuts (auto) 2.9 (2.0-8.3) x10*3/uL Absolute Nucleated RBC 0.000 (0.0-0.012) X10*3/uL Nucleated RBC % (auto) 0.0 (0.0-0.2) /100WBC Sodium 144 (135-145) mmol/L Potassium 4.2 (3.3-5.1) mmol/L Chloride 109 H (96-108) mmol/L Carbon Dioxide 26 (22-29) mmol/L Anion Gap 13 (12-20) BUN 24 H (9-16) mg/dL Creatinine 0.85 (0.5-1.4) mg/dL Estim Creat Clear Calc 130.0 Estimated GFR > 60 Random Glucose 78 (60-115) mg/dL Calcium 9.7 (8.4-10.2) mg/dL Total Bilirubin 0.5 (0.0-1.0) mg/dL AST 26 (5-37) U/L ALT 19 (0-40) U/L Alkaline Phosphatase 68 (39-117) U/L Total Protein 7.7 (6.5-8.0) g/dL Albumin 4.5 (3.5-5.0) g/dL Urine Opiates Screen (Not Detect) Urine Fentanyl Screen (Not Detect) Ur Barbiturates Screen (Not Detect) Ur Phencyclidine Scrn (Not Detect) Ur Amphetamines Screen (Not Detect) U Benzodiazepines Scrn (Not Detect) Urine Cocaine Screen (Not Detect) U Marijuana (THC) Screen (Not Detect) Ethyl Alcohol < 10 mg/dL COVID-19 (JAMIE) Negative (Negative) COVID-19 Clin Com See Note 12/12/22 Range/Units 17:24 WBC (4.8-10.8) X10*3/uL RBC (4.60-5.80) X10*6/uL Hgb (14.0-18.0) g/dl Hct (42.0-52.0) % MCV (80.0-98.0) fL MCH (27.0-33.0) pg MCHC (31.0-36.0) g/dl RDW (11.0-16.0) % Plt Count (160-400) X10*3/uL MPV (9.4-12.4) fL Immature Gran % (Auto) (0.0-0.4) % Neut % (Auto) (45-73) % Lymph % (Auto) (20-40) % [place] % (Auto) (2-11) % Eos % (Auto) (0-4) % Baso % (Auto) (0-2) % Lymph # (Auto) (1.2-4.9) X10*3/uL [place] # (Auto) (0.1-1.2) X10*3/uL Eos # (Auto) (0.0-0.4) X10*3/uL Baso # (Auto) (0.0-0.2) X10*3/uL Abs Immat Gran (auto) (0.00-0.03) X10*3/uL Absolute Neuts (auto) (2.0-8.3) x10*3/uL Absolute Nucleated RBC (0.0-0.012) X10*3/uL Nucleated RBC % (auto) (0.0-0.2) /100WBC Sodium (135-145) mmol/L Potassium (3.3-5.1) mmol/L Chloride (96-108) mmol/L Carbon Dioxide (22-29) mmol/L Anion Gap (12-20) BUN (9-16) mg/dL Creatinine (0.5-1.4) mg/dL Estim Creat Clear Calc Estimated GFR Random Glucose (60-115) mg/dL Calcium (8.4-10.2) mg/dL Total Bilirubin (0.0-1.0) mg/dL AST (5-37) U/L ALT (0-40) U/L Alkaline Phosphatase (39-117) U/L Total Protein (6.5-8.0) g/dL Albumin (3.5-5.0) g/dL Urine Opiates Screen POSITIVE H (Not Detect) Urine Fentanyl Screen POSITIVE H (Not Detect) Ur Barbiturates Screen Not Detected (Not Detect) Ur Phencyclidine Scrn Not Detected (Not Detect) Ur Amphetamines Screen Not Detected (Not Detect) U Benzodiazepines Scrn Not Detected (Not Detect) Urine Cocaine Screen POSITIVE H (Not Detect) U Marijuana (THC) Screen POSITIVE H (Not Detect) Ethyl Alcohol mg/dL COVID-19 (JAMIE) (Negative) COVID-19 Clin Com External Record Review External record reviewed: Inpatient record (Last psychiatric admission was reviewed by me) Discharge Plan Discharge Clinical Impression: Suicidal ideation, Auditory hallucination, Cocaine use disorder, Opiate use Patient Disposition: Home, Self-Care Instructions: Suicide Prevention (ED) Additional Instructions: Your urine drug screen was positive for opiates, fentanyl, cocaine and marijuana You need to get help with your opiate use disorder. Your are being discharged home with intranasal Narcan. If you are going to continue to use heroin, you should make sure that there is a sober person with you that is not using drugs and that this person can administer intranasal Narcan in the event that you stop breathing. You should talk to the methadone clinic about increasing your methadone dose to help prevent relapse and use of street drugs. Take all of your medications as prescribed Follow all of the instructions of the care team Return for new or worsening symptoms Prescriptions: No Action methadone 10 mg/mL Concentrate 195 mg PO DAILY gemfibrozil 600 mg Tablet 600 mg PO BIDAC Qty: 28 0RF aripiprazole 10 mg Tablet 10 mg PO DAILY Qty: 30 0RF clonidine HCl 0.1 mg tablet 0.2 mg PO BID PRN (Reason: Anxiety) Qty: 60 0RF gabapentin 600 mg tablet 600 mg PO BID@0900,1500 Qty: 60 0RF paroxetine HCl 10 mg tablet 10 mg PO DAILY Qty: 30 0RF Rx Instructions: tdd = 50 mg nicotine (polacrilex) 2 mg gum 4 mg PO Q1H PRN (Reason: Smoking Cessation) Qty: 60 0RF gabapentin 400 mg capsule 800 mg PO BEDTIME Qty: 60 0RF hydroxyzine pamoate 50 mg capsule 100 mg PO BID PRN (Reason: Anxiety) Qty: 60 0RF melatonin 3 mg tablet 9 mg PO BEDTIME Qty: 60 0RF nicotine 21 mg/24 hr patch 24 hour 1 patch topical DAILY Qty: 30 0RF docusate sodium 100 mg Capsule 100 mg PO BEDTIME PRN (Reason: Constipation) 30 Days Qty: 30 0RF paroxetine HCl 40 mg tablet 40 mg PO DAILY Qty: 30 0RF Rx Instructions: tdd = 50 mg prazosin 2 mg capsule 4 mg PO BEDTIME Qty: 60 0RF naproxen 500 mg tablet 500 mg PO BID PRN (Reason: Headache) Qty: 30 0RF Interventions: [place]-Suicide Risk Severity Scale Last Done: 12/13/22 06:11
--- NOTE | 2022-12-12 13:24 | PHA.MEDREC ---
Pharmacy Consult ? Medication Reconciliation Pharmacy has completed the medication reconciliation. Patient was recently discharged 12/07/22. Utilized discharge summary.
[2022-12-12 20:54] VITALS: BP 125/61; PULSE 68; RESP 16; TEMP 36.9; O2SAT 97
--- NOTE | 2022-12-13 06:14 | PC.NURSE ---
Patient slept through the night, no distress observed/reported, no behavior concerns at this time, disposition per care team is current provider, patient's discharge paper ready, VSS, will continue to monitor.
[2022-12-13 06:22] VITALS: RESP 17
[2022-12-13 08:52] VITALS: BP 135/76; PULSE 63; RESP 16; TEMP 36.9; O2SAT 99
== END 2022-12-13 09:07 | disposition home or self-care (01) ==
PROVIDERS: Emergency Provider Emergency Medicine Emergency Medical Services
DX: R45.851 Suicidal ideations (principal); R44.0 Auditory hallucinations; F19.90 Other psychoactive substance use, unspecified, uncomplicated
CPT/HCPCS: 80053; 80307; 85025; 87635; 99284; S9485

== ENCOUNTER 2023-02-19 14:54 | Emergency (ER) | payer OTHER, SELFPAY ==
[2023-02-19 15:54] VITALS: BP 108/61; PULSE 44; RESP 16; TEMP 36.7; O2SAT 97; BMI 22.0
--- NOTE | 2023-02-19 15:55 | ED_ITS ---
HPI - Psych General Chief Complaint: Psychiatric Symptoms Stated Complaint: hallucinations Time Seen by Provider: 02/19/23 18:40 Source: patient and RN notes reviewed Mode of arrival: ambulatory Limitations: no limitations History of Present Illness HPI Narrative: This is a 32-year-old male, with a history of ETOH abuse, polysubstance abuse on methadone, bipolar disorder, PTSD, DID, presenting to the emergency department for evaluation of suicidal ideations, auditory command and visual hallucinations. Patient reports that over the last several days he has had worsening depression and suicidal thoughts. He states that he has been off all of his psychiatric medications for the last 2 weeks. He states that today he has a suicidal plan to overdose. He has a history of unintentional/intentional overdoses. He states that he last used cocaine this morning. He states that he drinks typically a pintt of hard liquor every day, last drink was yesterday and drink half a pintt. denies any fevers, chills, chest pain, shortness breath, abdominal pain, nausea, vomiting or diarrhea. No other complaints or concerns at this time. MD complaint: suicidal ideation, feels depressed, substance abuse and alcohol abuse History of same: Yes Relieving factors: none Exacerbating factors: none Context: recent alcohol abuse, recent drug abuse and not taking psychiatric medications Associated psychiatric symptoms: depression, suicidal ideation, auditory hallucinations and visual hallucinations Associated symptoms: denies other symptoms Treatments prior to arrival: none If self harm: has plan Details of plan: Overdose Related Data Home Medications Medication Instructions Recorded Confirmed methadone 10 mg/mL oral concentrate 195 mg PO DAILY 12/01/22 02/21/23 Previous Rx's Medication Instructions Recorded aripiprazole 10 mg tablet 10 mg PO DAILY #30 tabs 12/06/22 clonidine HCl 0.1 mg tablet 0.2 mg (2 x 0.1 mg) PO BID PRN 12/06/22 Anxiety #60 tabs docusate sodium 100 mg capsule 100 mg PO BEDTIME PRN Constipation 12/06/22 30 days #30 caps gabapentin 400 mg capsule 800 mg (2 x 400 mg) PO BEDTIME #60 12/06/22 caps gabapentin 600 mg tablet 600 mg PO BID@0900,1500 #60 tabs 12/06/22 gemfibrozil 600 mg tablet 600 mg PO BIDAC #28 tabs 12/06/22 hydroxyzine pamoate 50 mg capsule 100 mg (2 x 50 mg) PO BID PRN 12/06/22 Anxiety #60 caps melatonin 3 mg tablet 9 mg (3 x 3 mg) PO BEDTIME #60 tabs 12/06/22 naproxen 500 mg tablet 500 mg PO BID PRN Headache #30 tabs 12/06/22 nicotine (polacrilex) 2 mg gum 4 mg PO Q1H PRN Smoking Cessation 12/06/22 #60 ea nicotine 21 mg/24 hr daily 1 patch topical DAILY #30 ea 12/06/22 transdermal patch paroxetine HCl 10 mg tablet 10 mg PO DAILY #30 tabs 12/06/22 paroxetine HCl 40 mg tablet 40 mg PO DAILY #30 tabs 12/06/22 prazosin 2 mg capsule 4 mg (2 x 2 mg) PO BEDTIME #60 caps 12/06/22 Allergies Allergy/AdvReac Type Severity Reaction Status Date / Time amoxicillin Allergy Hives Verified 02/19/23 15:54 Penicillins [PCN] Allergy Hives Verified 02/19/23 15:54 seafood Allergy Difficulty Verified 02/19/23 15:54 Breathing Review of Systems 2 Review of Systems: Yes all other systems are reviewed and are negative Constitutional: Constitutional: Reports as per [facility] Past Medical History Medical History (Updated 02/21/23 @ 10:51 by Libby Aquino) Mood disorder PTSD (post-traumatic stress disorder) Polysubstance (including opioids) dependence, daily use Social History Social History Household Members: Other Household Members Other:: homeless Housing: Homeless Do you presently have visiting nurse or other home services: No Alcohol intake: current Alcohol intake frequency: does not drink Patient Tobacco Use Status: Current everyday Tobacco user Tobacco use type: Cigarette Cigarette Packs Per Day: 1 Cigarettes Per Day: 20.0 Years Smoked: 20 Smoked in Last 30 Days: Yes e-Cigarette/Vaping Use: Former Use Second Hand Smoke Exposure: Yes Use of substances other than those prescribed or required for medical reasons: Yes Substance Use Type: Crack/Cocaine Substance Use Frequency: Chronic Longstanding Advance Directives: No Advance Directives Information Provided: No Healthcare Proxy: No Guardian: No service: No Current occupational status: unemployed Sexual orientation: Straight/Heterosexual Physical Exam 2 Vital Signs: Vital Signs: Last Vital Signs Temp 98.2 F 09/12/23 06:29 Pulse 49 L 02/22/23 06:29 Resp 17 02/22/23 06:29 BP 106/56 L 02/22/23 06:29 Pulse Ox 99 02/22/23 06:29 O2 Del Method Room Air 02/22/23 06:29 BMI result Body Mass Index 22.0 Const: General: cooperative, comfortable and no acute distress O rientation/consciousness: patient oriented x3 Limitations: no limitations HEENT: Head: Yes normal to inspection, Yes normocephalic and Yes atraumatic Ears: hearing grossly normal bilaterally General nose exam: Normal external nose present Face and sinus: Yes normal facial exam Mouth: Normal oral and palatal mucosa present, oropharynx normal and moist mucous membranes Throat: Yes posterior oropharynx normal Eyes: General: appearance normal, both eyes and all related structures E yelids: Yes eyelids normal Conjunctivae: conjunctivae normal Sclerae: s clerae normal Pupils: Equal, round and reactive pupils present EOM: EOMs intact bilaterally Neck: Neck: Yes normal visual inspection, Yes full ROM and Yes no lymphadenopathy Lymphatic: no lymphadenopathy noted Chest: Chest palpation & inspection: normal inspection of the chest Resp: Effort & Inspection: normal respiratory effort and able to speak in complete sentences Auscultation: clear to auscultation bilaterally, no crackles, no rales, no rhonchi and no wheezes Cardio: Rate: regular rate Rhythm: regular rhythm Heart sounds: S1 normal heart sound present and S2 normal heart sound present GI: Other: Abdomen is soft, nontender, nondistended. Inspection: Yes normal to inspection Skin: General skin exam: no rashes or lesions noted Trauma: no lacerations or abrasions Wounds: no wounds Neuro: General: patient oriented x3 and moves all extremities Cranial nerves: Yes Equal, round and reactive pupils present Extrem: General: Yes normal to inspection Right upper extremity: normal to inspection Left upper extremity: normal to inspection Right lower extremity: normal to inspection Left lower extremity: normal to inspection Course Course Course Narrative: pt complains of suicidal thoughts with plan to overdose and past hx of suicide attempts, hears voices saying to harm self states used cocaine yesterday last alcohol drink last night, has had EtOH withdrawal in the past labs ordered rme in triage pending fulle r and psych eval Reevaluation(s) Reevaluation #1: Patient was seen by care team, will stay overnight and reassess in the morning. Patient stable, physician observation initiated. Reevaluation #2: Care team feels as though patient can be DC home w/ close follow up. Feeling well at this time. Educated patient on diagnosis and treatment plan, answered all question, patient verbalizes understanding. At this time patient will be discharged home, advised to return with new or worsening symptoms. Educated on worrisome signs and symptoms and when to return. At this time I feel comfortable discharge home. Reevaluation #3: Went care team checked back in with the patient to reassure him that the plan was for him to go home he suddenly escalated, started trying to hang himself with his jaw knee, started being himself against the wall. Four point restraints and medication restraints ordered. Time: 11:57 Additional Reevaluation(s): Patient now common cooperative, I did speak to care team who recommends ordering psychiatric consult, psychiatric consult placed. Patient remains common cooperative stable vitals. Will continue to monitor. 02/21/2023--851--physician observation continued. Vital signs stable. Patient was evaluated by CARE team yesterday and plan was for detox referral and discharge with outpatient services however became upset upon discharge and wrapped hospital blanket around his neck. Psychiatry consult ordered, pending evaluation/recommendations Consultations Consultation #1: Physician observation ended at 1018am. Patient seen and cleared by CARE team and Kenia ROCK. Plan is to follow up as outpatient. Disposition is for home. concern for secondary gain. no acute need for inpatient. unhappy and disgruntled Medications Administered Discontinued Medications Generic Name Dose Route Start Last Admin Trade Name Freq PRN Reason Stop Dose Admin Diphenhydramine HCl 50 mg 02/20/23 13:01 02/20/23 11:55 Diphenhydramine Hcl 50 Mg/Ml Vial IM 02/20/23 13:02 50 mg ONCE ONE Administration Haloperidol Lactate 5 mg 02/20/23 13:01 02/20/23 11:50 Haloperidol Lactate 5 Mg/Ml Vial IM 02/20/23 13:02 5 mg ONCE ONE Administration Lorazepam 2 mg 02/20/23 13:01 02/20/23 11:50 Lorazepam 2 Mg/Ml Vial IM 02/20/23 13:02 2 mg STAT STA Administration Lorazepam 2 mg 02/22/23 05:05 02/22/23 05:15 Lorazepam 1 Mg Tablet PO 02/22/23 05:06 2 mg ONCE ONE Administration Methadone HCl 195 mg 02/20/23 10:01 02/20/23 12:22 Methadone Hcl 20 Mg/2 Ml Oral.Conc PO 02/20/23 10:02 195 mg ONCE ONE Administration Methadone HCl 195 mg 02/21/23 12:48 02/21/23 13:40 Methadone Hcl 20 Mg/2 Ml Oral.Conc PO 02/21/23 12:49 195 mg ONCE ONE Administration Nicotine Polacrilex 2 mg 02/21/23 17:36 02/21/23 17:41 Nicotine Polacrilex 2 Mg Gum BUCCAL 02/21/23 17:37 2 mg ONCE ONE Administration Medical Decision Making Medical Decision Making [facility] Narrative: 32-year-old male presenting to the emergency department for evaluation of suicidal ideations with auditory and visual hallucinations. He has a history of multiple mental health illnesses, has been off of his meds for the last 2 weeks. His suicidal plan is for an intentional overdose. On arrival, patient is alert and oriented, stable, pulse mildly bradycardic at 44 beats per minute. Lungs clear to auscultation bilaterally, heart regular rate and rhythm. He has no chest pain, shortness breath, abdominal pain. Labs were obtained no leukocytosis, normocytic anemia with a hemoglobin and hematocrit at 11.7/36.6. Chemistry nondiagnostic. COVID negative, alcohol level negative. Awaiting U tox. Patient on one-to-one safety checks. Patient resting comfortably. Plan: Care team consult as patient is medically cleared at this point. Differential Diagnosis Differential Diagnoses: The differential diagnosis associated with the presentation includes Suicidal ideation, depression, anxiety, bipolar disorder, polysubstance abuse Admission/Observation Consideration of admission/observation: Escalation of care including admission/observation considered Escalation of care was considered for psychiatric admission given suicidal ideations and medication noncompliance. Lab Data [facility] Lab Attestation statement: I reviewed the patient's lab results. 02/19/23 16:27 02/19/23 16:27 Labs: Lab Results 02/19/23 02/19/23 Range/Units 16:27 21:10 WBC 5.8 (4.8-10.8) X10*3/uL RBC 4.33 L (4.60-5.80) X10*6/uL Hgb 11.7 L (14.0-18.0) g/dl Hct 36.6 L (42.0-52.0) % MCV 84.5 (80.0-98.0) fL MCH 27.0 (27.0-33.0) pg MCHC 32.0 (31.0-36.0) g/dl RDW 13.7 (11.0-16.0) % Plt Count 229 (160-400) X10*3/uL MPV 11.1 (9.4-12.4) fL Immature Gran % (Auto) 0.2 (0.0-0.4) % Neut % (Auto) 48.5 (45-73) % Lymph % (Auto) 36.0 (20-40) % Luce % (Auto) 7.9 (2-11) % Eos % (Auto) 6.7 H (0-4) % Baso % (Auto) 0.7 (0-2) % Lymph # (Auto) 2.1 (1.2-4.9) X10*3/uL Luce # (Auto) 0.5 (0.1-1.2) X10*3/uL Eos # (Auto) 0.4 (0.0-0.4) X10*3/uL Baso # (Auto) 0.0 (0.0-0.2) X10*3/uL Abs Immat Gran (auto) 0.01 (0.00-0.03) X10*3/uL Absolute Neuts (auto) 2.8 (2.0-8.3) x10*3/uL Absolute Nucleated RBC 0.000 (0.0-0.012) X10*3/uL Nucleated RBC % (auto) 0.0 (0.0-0.2) /100WBC Sodium 140 (135-145) mmol/L Potassium 4.3 (3.3-5.1) mmol/L Chloride 104 (96-108) mmol/L Carbon Dioxide 29 (22-29) mmol/L Anion Gap 11 L (12-20) BUN 18 H (9-16) mg/dL Creatinine 0.80 (0.5-1.4) mg/dL Estim Creat Clear Calc 130.6 Estimated GFR > 60 Random Glucose 91 (60-115) mg/dL Calcium 9.9 (8.4-10.2) mg/dL Total Bilirubin 0.3 (0.0-1.0) mg/dL Direct Bilirubin 0.2 (0.0-0.5) mg/dL AST 19 (5-37) U/L ALT 15 (0-40) U/L Alkaline Phosphatase 66 (39-117) U/L Total Protein 7.0 (6.5-8.0) g/dL Albumin 4.1 (3.5-5.0) g/dL Urine Color Yellow Urine Appearance Clear Urine pH 6.0 (5.0-9.0) Ur Specific [place] 1.025 (1.005-1.025) Urine Protein Trace (Neg-Trace) mg/dL Urine Glucose (UA) Negative (Negative) mg/dL Urine Ketones Negative (Negative) mg/dL Urine Blood Trace H (Negative) Urine Nitrite Negative (Negative) Ur Leukocyte Esterase Negative (Negative) Urine RBC 11-20 H (0-2) /HPF Urine WBC 0-5 (0-5) /HPF Ur Squamous Epith Cells 0-2 (0-2) /HPF Urine Bacteria None Seen (None Seen) Hyaline Casts 3-5 (0-2) /LPF Urine Opiates Screen POSITIVE H (Not Detect) Urine Fentanyl Screen POSITIVE H (Not Detect) Ur Barbiturates Screen Not Detected (Not Detect) Ur Phencyclidine Scrn Not Detected (Not Detect) Ur Amphetamines Screen Not Detected (Not Detect) U Benzodiazepines Scrn Not Detected (Not Detect) Urine Cocaine Screen POSITIVE H (Not Detect) U Marijuana (THC) Screen POSITIVE H (Not Detect) Ethyl Alcohol < 10 mg/dL COVID-19 (JAMIE) Negative (Negative) COVID-19 Clin Com See Note Discharge Plan Discharge Clinical Impression: Suicidal ideation, Bipolar disorder Patient Disposition: Home, Self-Care Instructions: Bipolar Disorder (ED), Suicide Prevention (ED) Additional Instructions: Take your medications as prescribed. If you were prescribed antibiotics today, it is important that you take your medication to their entirety, do not skip any doses, do not finish them early. Follow-up with your primary care provider this week. Return to the emergency department with new or worsening symptoms. Such as fevers, chills, chest pain, shortness of breath, nausea, vomiting, dizziness, headache, vision changes, lethargy, suicidal or homicidal ideation In case of emergency call 911 Prescriptions: No Action methadone 10 mg/mL Concentrate 195 mg PO DAILY gemfibrozil 600 mg Tablet 600 mg PO BIDAC Qty: 28 0RF aripiprazole 10 mg Tablet 10 mg PO DAILY Qty: 30 0RF clonidine HCl 0.1 mg tablet 0.2 mg PO BID PRN (Reason: Anxiety) Qty: 60 0RF gabapentin 600 mg tablet 600 mg PO BID@0900,1500 Qty: 60 0RF paroxetine HCl 10 mg tablet 10 mg PO DAILY Qty: 30 0RF Rx Instructions: tdd = 50 mg nicotine (polacrilex) 2 mg gum 4 mg PO Q1H PRN (Reason: Smoking Cessation) Qty: 60 0RF gabapentin 400 mg capsule 800 mg PO BEDTIME Qty: 60 0RF hydroxyzine pamoate 50 mg capsule 100 mg PO BID PRN (Reason: Anxiety) Qty: 60 0RF melatonin 3 mg tablet 9 mg PO BEDTIME Qty: 60 0RF nicotine 21 mg/24 hr patch 24 hour 1 patch topical DAILY Qty: 30 0RF docusate sodium 100 mg Capsule 100 mg PO BEDTIME PRN (Reason: Constipation) 30 Days Qty: 30 0RF paroxetine HCl 40 mg tablet 40 mg PO DAILY Qty: 30 0RF Rx Instructions: tdd = 50 mg prazosin 2 mg capsule 4 mg PO BEDTIME Qty: 60 0RF naproxen 500 mg tablet 500 mg PO BID PRN (Reason: Headache) Qty: 30 0RF Referrals: Physician,None [Primary Care Provider] - 2 days Interventions: [place]-Suicide Risk Severity Scale Last Done: 02/22/23 03:46 ED Observation ED Observation Admit Diagnostic Studies: Mental health evaluation MDM: Patient viewed after boarding in the emergency department they have been here for over 24 hours. vitals were reviewed no new issues has no complaints this morning ate breakfast. Sleeping comfortably did arouse easily and answered all my questions
[2023-02-19 16:34] LABS: MANUAL DIFF FLAG NO
[2023-02-19 16:50] LABS: COVID-19 Test Negative (Negative); IDNOW Serial# 16C4AD1C
[2023-02-19 16:56] LABS: Basophils Percent Auto 0.7 % (0-2); Eosinophils Absolute Auto 0.4 X10*3/uL (0.0-0.4); Eosinophils Percent Auto 6.7 % (0-4); Hematocrit 36.6 % (42.0-52.0); Hemoglobin 11.7 g/dl (14.0-18.0); Imm Gran Abs Auto 0.01 X10*3/uL (0.00-0.03); Imm Gran Pct Auto 0.2 % (0.0-0.4); Lymphocytes Absolute Auto 2.1 X10*3/uL (1.2-4.9); Mean Corpuscular Volume 84.5 fL (80.0-98.0); Mean Platelet Volume 11.1 fL (9.4-12.4); Monocytes Absolute Auto 0.5 X10*3/uL (0.1-1.2); Monocytes Percent Auto 7.9 % (2-11); Neutrophils Absolute Auto 2.8 x10*3/uL (2.0-8.3); Neutrophils Percent Auto 48.5 % (45-73); Platelet Count 229 X10*3/uL (160-400); Red Blood Count 4.33 X10*6/uL (4.60-5.80); Red Cell Distribution Width 13.7 % (11.0-16.0); White Blood Count 5.8 X10*3/uL (4.8-10.8)
[2023-02-19 17:00] LABS: Ethanol < 10 mg/dL
[2023-02-19 17:02] LABS: Alanine Aminotransferase 15 U/L (0-40); Albumin Level 4.1 g/dL (3.5-5.0); Alkaline Phosphatase 66 U/L (39-117); Anion Gap 11 (12-20); Aspartate Amino Transferase 19 U/L (5-37); Bilirubin Direct 0.2 mg/dL (0.0-0.5); Bilirubin Total 0.3 mg/dL (0.0-1.0); Blood Urea Nitrogen 18 mg/dL (9-16); Calcium 9.9 mg/dL (8.4-10.2); Carbon Dioxide 29 mmol/L (22-29); Chloride 104 mmol/L (96-108); Creatinine Clr Calc Pharmacy 130.6; Estimated Glomerular Filt Rate > 60; Glucose Random 91 mg/dL (60-115); Potassium 4.3 mmol/L (3.3-5.1); Sodium 140 mmol/L (135-145)
[2023-02-19 19:54] VITALS: BP 111/61; PULSE 42; RESP 16; TEMP 36.5; O2SAT 98
--- NOTE | 2023-02-19 20:51 | PC.NURSE ---
This RN made provider Nayan aware of pts pulse of 42. Provider with pt. plan of care ongoing.
--- NOTE | 2023-02-19 20:56 | PC.NURSE ---
Pt given food and drink. Pt made aware urine needed. Plan of care ongoing.
--- NOTE | 2023-02-19 21:07 | MHC.EDTECH ---
Patient gave a urine sample, specimen collected and sent to lab. Patient is sitting up eating at this time. 1-1 sitter at bedside for safety
[2023-02-19 21:18] LABS: Appearance Urine Clear; Color Urine Yellow; Glucose Urine UA Negative (Negative); Leukocyte Esterase Urine Negative (Negative); Nitrite Urine Negative (Negative); Specific Gravity - Urine 1.025 (1.005-1.025); UMIC TRIGGER UACC YES; Urine Blood Trace (Negative); Urine Ketones Negative (Negative); Urine Protein Trace mg/dL (Neg-Trace)
--- NOTE | 2023-02-19 21:19 | PC.NURSE ---
UA collected and sent. plan of care ongoing.
[2023-02-19 21:21] LABS: Bacteria Urine None Seen (None Seen); Squamous Epithelial Cell Urine 0-2 /HPF (0-2); WBC Urine 0-5 /HPF (0-5)
[2023-02-19 21:39] LABS: Amphetamine Screen Urine Not Detected (Not Detect); Barbiturates, Urine Not Detected (Not Detect); Benzodiazepines Screen Urine Not Detected (Not Detect); Cannabinoid Screen Urine POSITIVE (Not Detect); Cocaine Screen Urine POSITIVE (Not Detect); Fentanyl, urine POSITIVE (Not Detect); Opiate Screen Urine POSITIVE (Not Detect); Phencyclidine Screen Urine Not Detected (Not Detect)
[2023-02-19 21:55] VITALS: BP 116/77; PULSE 44; RESP 14; TEMP 37; O2SAT 97
[2023-02-19 23:37] VITALS: BP 108/69; PULSE 44; RESP 16; TEMP 36.7; O2SAT 100
--- NOTE | 2023-02-19 23:38 | MHC.EDTECH ---
Hourly rounds and vitals completed,heart rate is low at 44 RN aware. 1-1 sitter at bedside for safety
[2023-02-20] VITALS (12 sets, daily range): BP systolic 100–116; BP diastolic 51–76; PULSE 40–53; RESP 14–18; TEMP 36.4–36.7; O2SAT 95–100
--- NOTE | 2023-02-20 01:59 | PC.NURSE ---
Provider ilana made aware of pt p-41.
--- NOTE | 2023-02-20 04:37 | MHC.EDTECH ---
Hourly rounds and vitals completed, HR is low at 42 RN was made aware.1-1 sitter at bedside for safety
--- NOTE | 2023-02-20 04:40 | PC.NURSE ---
Dr Villegas made aware of pts pulse of 42.
--- NOTE | 2023-02-20 06:53 | PC.NURSE ---
Report given to Lam ALMANZAR.
[2023-02-20] MEDS: Haloperidol Lactate 5 MG/ML VIAL IM (11:50)
[2023-02-20] MEDS: LORazepam 2 MG/ML VIAL IM (11:50)
[2023-02-20] MEDS: diphenhydrAMINE HCL 50 MG/ML VIAL IM (11:55)
--- NOTE | 2023-02-20 11:55 | HE.PHANOTE ---
METHADONE VERIFICATION FORM RECEIVED, DOSE 195 MG
[2023-02-20] MEDS: methADONE HCl 20 MG/2 ML ORAL.CONC 195 MG PO (12:22)
--- NOTE | 2023-02-20 12:56 | PC.NURSE ---
At approx 1150 patient became extremely agitated after speaking with Yanni, patient then needed to be restrained by security and multiple staff members, pt began to smash his head on the wall, bed was then removed from wall, pt brought into room, 4 point hard restraints placed on patient, IM given per MONICA Balbuena's orders. PT verbally reporting you guys aren't doing shit for me, this is useless, I need to be locked up,I am fucked in the head verbal deescalation with this editorial writer occurred when patient post IM medication. Pt reporting he feels he needs to be in locked facility or a detox/alf that will bring him to his appointments/help force his medications to be taken, he is upset that he gets discharged to the street and then his head tells him to just fuck everything up . Methadone dose given to patient as well. Pt has since deescalated, restraints removed at 1310. Ynani aware of situation. d/c removed from system.
--- NOTE | 2023-02-20 16:00 | PC.NURSE ---
sitter 1:[address] no attempts for self-harm this shift. continued- no changes. +CMS. sleeping. calm. no cp/dizziness/sob/talks well. cooperative. calm.
--- NOTE | 2023-02-20 21:14 | PC.NURSE ---
aox4 but reports has hallucinations at times since DIGITAL ANALYST. reports si with plan to OD outside of hospital. sitter 1:[address] no attempts for self-harm this shift. continued- no changes. ate dinner well. +CMS. talking w/o distress. calm. no cp/dizziness/sob/talks well. cooperative. calm.
--- NOTE | 2023-02-20 23:00 | PC.NURSE ---
This procedure writer assumed care of this Pt at 2100. Pt appears to be sleeping, awakens with verbal stimulation. Denies SI/HI, report AH/VS I see shadows and figures, multiple voices they tell me to hurt myself, I'm suppose to be on medication . 1:1 siter at bedside.
[2023-02-21 02:03] VITALS: RESP 18; O2SAT 99
[2023-02-21 08:04] VITALS: BP 100/62; PULSE 45; RESP 16; TEMP 36.4; O2SAT 97
--- NOTE | 2023-02-21 08:20 | PC.NURSE ---
assumed care of pt at 0700 this AM. pt resting comfortably in bed with eyes closed, NAD, respirations even and unlabored.. pt changed into hospital amy, 1:1 sitter Sarah at bedside
--- NOTE | 2023-02-21 10:08 | PC.NURSE ---
Libby [employer] SUPERVISOR Psych at bedside
--- NOTE | 2023-02-21 10:26 | P.CNPS_ITS ---
History of Present Illness Date of Service: 02/21/2023 Chief Complaint: hallucinations Reason for Consult: suicidal ideation Discussed with referring provider: Yes Sources of Information: patient interviewed, chart reviewed and crisis/core team assessment reviewed HPI Narrative: Mr. Graves is 32 year-old with hx of PSTD, cocaine and opioid use disorder who self presented to [facility] ED reporting initially suicidal ideation without a plan. Utox positive for fentanyl, cocaine, opioids, cannabinoids. Pt initially was referred to detox or dual dx residential treatment but pt became irritable, agitated, demanding to go inpatient and threatening to cut wrists. Pt known through several assessment with similar presentation. Pt seen in ED. Pt presents as irritable and not willing to engage in any type of meaningful therapeutic conversation. He asks if they referring to care team found a bed for him. Pt informed that there was a detox bed for him but he had declined such bed. Pt reports he just want a bed. Pt reports he can go to detox- states that he may consider coming off methadone, to which this teletypewriter installer advised against it as he continues to struggle with substance use. Pt reports he has a place to go after detox stay. This teletypewriter installer explained that our part of assessment is to connect with the services that are most appropriate for him. He states he doesn't care, just want a bed. When asked about other referrals for substance use treatment, pt states he plans to continue methadone and mostly looking for short term place to stay. He does not appear internally preoccupied. He is irritable and restless. He is future oriented. Past Psychiatric History: Inpt: Doug Roesnberg more than 10 years ago, M3 recently, Shanon Marin recently OP: none Past medication trials: concerta, ritalin, adderall, seroquel, lithium, depakote, paxil, celexa, risperidone Denies hx of suicide attempts. [facility]LY [facility] Medical History (Updated 02/21/23 @ 10:51 by Libby Aquino) Mood disorder PTSD (post-traumatic stress disorder) Polysubstance (including opioids) dependence, daily use Family History: Mental Health and Addiction issues Social History: Raised in the [facility]. Graduated from high school. Currently living at 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 Would like to apply for disability and for housing, along with [facility] services Daughter, age 7 Trauma History: Affirms Diagnostics Vital Signs (24Hr): Vital Signs - 24 hr 02/20/23 12:09 02/20/23 12:19 02/20/23 12:29 Temperature Pulse Rate 53 48 L 53 Respiratory Rate 18 18 Blood Pressure 116/63 113/61 109/70 Pulse Oximetry 98 99 100 Oxygen Delivery Method Room Air Room Air Room Air 02/20/23 12:39 02/20/23 12:49 02/20/23 13:02 Temperature Pulse Rate 40 L 43 L 43 L Respiratory Rate 18 18 18 Blood Pressure 112/70 107/56 L 100/51 L Pulse Oximetry 96 96 96 Oxygen Delivery Method Room Air Room Air Room Air 02/20/23 13:09 02/20/23 16:02 02/20/23 20:41 Temperature 98.0 F 97.5 F Pulse Rate 43 L 40 L 40 L Respiratory Rate 16 14 18 Blood Pressure 100/51 L 102/56 L 106/59 L Pulse Oximetry 95 96 98 Oxygen Delivery Method Room Air Room Air Room Air 02/21/23 02:03 02/21/23 08:04 Temperature 97.5 F Pulse Rate 45 L Respiratory Rate 18 16 Blood Pressure 100/62 Pulse Oximetry 99 97 Oxygen Delivery Method Room Air Room Air BMI result Body Mass Index 22.0 Labs 02/19/23 16:27 02/19/23 16:27 Labs: Laboratory Results - last 48 hr 02/19/23 02/19/23 16:27 21:10 WBC 5.8 RBC 4.33 L Hgb 11.7 L Hct 36.6 L MCV 84.5 MCH 27.0 MCHC 32.0 RDW 13.7 Plt Count 229 MPV 11.1 Immature Gran % (Auto) 0.2 Neut % (Auto) 48.5 Lymph % (Auto) 36.0 [place] % (Auto) 7.9 Eos % (Auto) 6.7 H Baso % (Auto) 0.7 Lymph # (Auto) 2.1 [place] # (Auto) 0.5 Eos # (Auto) 0.4 Baso # (Auto) 0.0 Abs Immat Gran (auto) 0.01 Absolute Neuts (auto) 2.8 Absolute Nucleated RBC 0.000 Nucleated RBC % (auto) 0.0 Sodium 140 Potassium 4.3 Chloride 104 Carbon Dioxide 29 Anion Gap 11 L BUN 18 H Creatinine 0.80 Estim Creat Clear Calc 130.6 Estimated GFR > 60 Random Glucose 91 Calcium 9.9 Total Bilirubin 0.3 Direct Bilirubin 0.2 AST 19 ALT 15 Alkaline Phosphatase 66 Total Protein 7.0 Albumin 4.1 Urine Color Yellow Urine Appearance Clear Urine pH 6.0 Ur Specific [place] 1.025 Urine Protein Trace Urine Glucose (UA) Negative Urine Ketones Negative Urine Blood Trace H Urine Nitrite Negative Ur Leukocyte Esterase Negative Urine RBC 11-20 H Urine WBC 0-5 Ur Squamous Epith Cells 0-2 Urine Bacteria None Seen Hyaline Casts 3-5 Urine Opiates Screen POSITIVE H Urine Fentanyl Screen POSITIVE H Ur Barbiturates Screen Not Detected Ur Phencyclidine Scrn Not Detected Ur Amphetamines Screen Not Detected U Benzodiazepines Scrn Not Detected Urine Cocaine Screen POSITIVE H U Marijuana (THC) Screen POSITIVE H Ethyl Alcohol < 10 COVID-19 (JAMIE) Negative COVID-19 Clin Com See Note Mental Status Exam Mental Status Exam Narrative: Appearance: wearing hospital gown, fair hygiene, missing teeth, restless Behavior: guarded, irritable Psychomotor: some restlessness Speech: clear, normal rate/rhythm/volume, spontaneous TP: linear TC: wanting a bed somewhere Mood: I don't want to talk Affect: irritable, guarded SI: conditional to obtaining place to stay for few days HI: none VH/AH: does not appear internally preoccupied Delusions: none Insight/judgment: poor x 2 Memory/cog: alert, oriented x 3. grossly intact to conversational testing. Medications Allergies Allergies Allergy/AdvReac Type Severity Reaction Status Date / Time amoxicillin Allergy Hives Verified 02/19/23 15:54 Penicillins [PCN] Allergy Hives Verified 02/19/23 15:54 seafood Allergy Difficulty Verified 02/19/23 15:54 Breathing Assessment & Plan Assessment & Plan (1) Mood disorder: Status: Acute Code(s): F39 - Unspecified mood [affective] disorder (2) Cocaine use disorder, moderate, dependence: Status: Acute Code(s): F14.20 - Cocaine dependence, uncomplicated (3) Opioid use disorder, moderate, dependence: Status: Acute Code(s): F11.20 - Opioid dependence, uncomplicated Plan Mr. Graves is a 32 year-old male with hx of Mood Disorder, PTSD, cocaine and opioid use disorder who self presented to [facility] Ed initially reporting suicidal ideation without a plan, later become upset and agitated when told that he was referred to detox/css program stating he would cut his wrist. Today, pt tells this teletypewriter installer that he wants a bed, anywhere, even if not clinically indicated. He presents as future oriented in that he reports he has a place to stay in few days and can complete detox. His story would change to meet different levels of care for instance when discussing detox and fact that he is on methadone and not withdrawing, he then suggested he would come off methadone so that he can go to detox. In the same manner, he escalated his report to intent to harm himself if not going inpatient. Pt has chronic risk of harm due to impulsive behaviors and ongoing substance use, but his suicidal reports are conditional at this point to having place to stay, regardless of treatment intervention (detox or inpatient) and therefore not reflective of true suicidality. Pt presents as future oriented, advocating (even if in a maladaptive way) for basic needs. He will be given narcan at time of discharge. PLAN 1. No need for inpatient level of care as no imminent safety risk due to suicidal or homicidal ideation. Pt has chronic risk of harm to self due to ongoing substance use and impulsive behaviors, but presents as future oriented and advocating for self and his basic needs in ways that are maladaptive (requesting treatment interventions that are not appropriate or indicated). 2. Limited insight into extend of substance use and its effects on his ability to have stable place to live and on its mood. Give NARCAN at time of discharge. 3. refer to addiction medicine for resources in community. Total time managing care of this patient today ____ minutes.
--- NOTE | 2023-02-21 10:28 | PC.NURSE ---
pt resting comfortably in the bed. NAD, no complaints at this time. pt reporting he has no idea what the plan is, reports he is irritated with the provider who just saw him because he does not feel like he is receiving help. pt continues to report SI, reports he has a plan bbut refusing to talk with t.w about his plan. pt reporting AVH that have slightly improved from yesterday but does continue to report having some AVH.
--- NOTE | 2023-02-21 10:48 | MHC.CARE ---
Case reviewed with Libby Lindo, MAGNETIC TAPE TYPEWRITER OPERATOR and psychiatric consult completed . Pt does not require and IPLOC admission at this time. Pt will be referred to recovery team for supports/ referrals for ATS.
--- NOTE | 2023-02-21 11:47 | PC.NURSE ---
call placed to [facility] for methadone dose
--- NOTE | 2023-02-21 12:10 | HE.PHANOTE ---
re: methadone verification last dose 195 mg methadone given at [facility] 02/19/23 @0852
--- NOTE | 2023-02-21 13:00 | PC.NURSE ---
pt eating well. intermittent si. ligatures removed. 1:[address] no distress. +CMS
--- NOTE | 2023-02-21 13:24 | MHC.RECOVRN ---
Addendum entered by Lin Al RN 02/21/23 16:42: Confirmed RCA takes pts insurance, one male detox bed at [facility], ATS referral sent to [facility] to be reviewed by Nursing. Addendum entered by Lin Al RN 02/21/23 15:00: ATS referral sent to [facility], following up with contact at [facility] as pt has [facility], which is accepted at [facility]. Original Note: This magnetic tape typewriter operator met with patient, patient requesting detox. Pt is on MTD maintenance at [facility]. Pt reports polysubstance use, 1-2 pints daily ETOH, 1/2 bundle daily IV heroin, gram ARISTIDES daily IV/IN. Pt has hx of treatment, ATS, CSS, TSS. Pt requesting detox. Reviewed ATS detox bedsearch process, pt verbalized understanding. ATS bedsearch started.
[2023-02-21] MEDS: methADONE HCl 20 MG/2 ML ORAL.CONC 195 MG PO (13:40)
[2023-02-21 13:52] VITALS: BP 112/68; PULSE 65; RESP 18; O2SAT 98
[2023-02-21 13:57] VITALS: TEMP 36.8
--- NOTE | 2023-02-21 17:00 | PC.NURSE ---
walked to pod w security in gown and belongings secured +CMS talking well
--- NOTE | 2023-02-21 17:03 | PC.NURSE ---
report given to pod rn. escorting to pod w security
[2023-02-21] MEDS: Nicotine Polacrilex 2 MG GUM BUCCAL (17:41)
--- NOTE | 2023-02-21 18:53 | MHC.RECOVRN ---
This bond underwriter met with patient to update detox bedsearch process, detox bedsearch exhausted. RCA declined patient for ATS admission, RCA states dual dx better fit for patient needs. Reviewed findings with patient, patient endorsing SI. Reviewed with Pod RN Earlene Reid who contacted CM. CM aware and Provider aware.
--- NOTE | 2023-02-21 18:56 | PC.NURSE ---
Jovany is endorsing SI and does not feel safe to discharge. Referred back to crisis where a psych consult will be scheduled.
--- NOTE | 2023-02-21 23:33 | PC.NURSE ---
PT alert and oriented. CIWA 4. PT endorsing SI with a plan. Safety checks remains in place. Plan of care ongoing.
--- NOTE | 2023-02-22 04:59 | PC.NURSE ---
PT requested orange juice with ice. This RN provided. CIWA reassessed- CIWA 2. PT reports hes unable to sleep and would like to medication to help. aware. new ordered administered
[2023-02-22] MEDS: LORazepam 1 MG TABLET 2 MG PO (05:15)
[2023-02-22 06:29] VITALS: BP 106/56; PULSE 49; RESP 17; TEMP 36.8; O2SAT 99
--- NOTE | 2023-02-22 06:35 | PC.NURSE ---
Pt woke up for vitals and assessments. Pt alert and oriented. Continues to endorse SI with a plan. CIWA 4. Pt denies pain. No behavioral concerns at this time. Plan of care ongoing
[2023-02-22] MEDS: methADONE HCl 20 MG/2 ML ORAL.CONC 195 MG PO (10:44)
[2023-02-22] MEDS: Naloxone HCl Nasal TAKE HOME 4 MG SPRAY 8 MG NOSTRILALT (10:44)
--- NOTE | 2023-02-22 10:52 | PC.NURSE ---
Jovany was calm and cooperative this morning and was informed he would be discharged. Requested Methadone dose and received 195mg's. Jovany was given Narcan with him upon discharge and verbalized understanding how to use it and knowing not to use opiates alone.
== END 2023-02-22 10:53 | disposition home or self-care (01) ==
PROVIDERS: Physician Assistant Medical; Emergency Provider Internal Medicine
DX: R45.851 Suicidal ideations (principal); F31.9 Bipolar disorder, unspecified; R44.0 Auditory hallucinations; R44.1 Visual hallucinations; R00.1 Bradycardia, unspecified; Z20.822 Contact with and (suspected) exposure to COVID-19; F11.20 Opioid dependence, uncomplicated; F14.20 Cocaine dependence, uncomplicated; F12.90 Cannabis use, unspecified, uncomplicated; F43.10 Post-traumatic stress disorder, unspecified; F17.210 Nicotine dependence, cigarettes, uncomplicated; Z91.148 Patient's other noncompliance with medication regimen for other reason
CPT/HCPCS: 36415; 80048; 80076; 80307; 81001; 85025; 87635; 96372; 99285; J1200; J2060; S9485

== ENCOUNTER → 2023-02-19 16:23 | Outpatient (BNV) | payer OTHER, SELFPAY | PROVIDERS: Emergency Provider Emergency Medicine Emergency Medical Services; Visit Provider Social Worker | DX: F39 Unspecified mood [affective] disorder (principal); F14.20 Cocaine dependence, uncomplicated; F11.20 Opioid dependence, uncomplicated | CPT/HCPCS: 99284 ==

== ENCOUNTER 2023-06-02 05:21 | Emergency (ER) | payer OTHER, SELFPAY ==
[2023-06-02 05:26] VITALS: BP 112/64; BP 113/77; PULSE 57; PULSE 69; RESP 14; TEMP 36.8; O2SAT 97; O2SAT 99; BMI 28.7
--- NOTE | 2023-06-02 05:34 | ECG_ITS ---
Test Reason : DIZZINESS Blood Pressure : / mmHG Vent. Rate : 052 BPM Atrial Rate : 052 BPM P-R Int : 140 ms QRS Dur : 082 ms QT Int : 486 ms P-R-T Axes : -11 039 029 degrees QTc Int : 451 ms Sinus bradycardia with sinus arrhythmia Otherwise normal ECG When compared with ECG of 02-DEC-2022 08:53, No significant change was found Referred By: Hannah Santos Electronically Signed By:RICARDO DEL CASTILLO MD
--- NOTE | 2023-06-02 05:39 | ED_ITS ---
HPI - Dizziness General Chief Complaint: Urogenital-Male Stated Complaint: light headed Time Seen by Provider: 06/02/23 05:25 Source: patient and old records reviewed Mode of arrival: ambulatory Limitations: no limitations History of Present Illness HPI Narrative: 32 yo male with PMH of mood disorder, PTSD, cocaine and opiate use - currently on methadone, rhabdomyolysis in the past - states he last used a couple of days ago comes in reports he was walking around for an hour and felt dizzy. He also notes some mild L flank pain and painful urination. No blood in urine and he denies n/v/d fevers. He has no hx of stones. He states no trauma. He feels fine now. No concern for STI has not had intercourse in 2 years. MD elicited complaint: lightheadedness Onset (ago): hour(s) (1) Timing: gradual onset and intermittent Severity: mild Description: lightheadedness History of similar symptoms: No Exacerbating factors: movement/ambulation Relieving factors: nothing Associated symptoms: other (flank pain and dysuria) Related Data Home Medications Medication Instructions Recorded Confirmed methadone 10 mg/mL oral concentrate 195 mg PO DAILY 12/01/22 02/21/23 Previous Rx's Medication Instructions Recorded aripiprazole 10 mg tablet 10 mg PO DAILY #30 tabs 12/06/22 clonidine HCl 0.1 mg tablet 0.2 mg (2 x 0.1 mg) PO BID PRN 12/06/22 Anxiety #60 tabs docusate sodium 100 mg capsule 100 mg PO BEDTIME PRN Constipation 12/06/22 30 days #30 caps gabapentin 400 mg capsule 800 mg (2 x 400 mg) PO BEDTIME #60 12/06/22 caps gabapentin 600 mg tablet 600 mg PO BID@0900,1500 #60 tabs 12/06/22 gemfibrozil 600 mg tablet 600 mg PO BIDAC #28 tabs 12/06/22 hydroxyzine pamoate 50 mg capsule 100 mg (2 x 50 mg) PO BID PRN 12/06/22 Anxiety #60 caps melatonin 3 mg tablet 9 mg (3 x 3 mg) PO BEDTIME #60 tabs 12/06/22 naproxen 500 mg tablet 500 mg PO BID PRN Headache #30 tabs 12/06/22 nicotine (polacrilex) 2 mg gum 4 mg PO Q1H PRN Smoking Cessation 12/06/22 #60 ea nicotine 21 mg/24 hr daily 1 patch topical DAILY #30 ea 12/06/22 transdermal patch paroxetine HCl 10 mg tablet 10 mg PO DAILY #30 tabs 12/06/22 paroxetine HCl 40 mg tablet 40 mg PO DAILY #30 tabs 12/06/22 prazosin 2 mg capsule 4 mg (2 x 2 mg) PO BEDTIME #60 caps 12/06/22 Allergies Allergy/AdvReac Type Severity Reaction Status Date / Time amoxicillin Allergy Hives Verified 02/19/23 15:54 Penicillins [PCN] Allergy Hives Verified 02/19/23 15:54 seafood Allergy Difficulty Verified 02/19/23 15:54 Breathing Review of Systems 2 Review of Systems: Constitutional : No Fever, No Chills, No Fatigue ENT/Mouth : No sore throat, No Rhinorrhea Eyes: No Eye Pain, No Swelling, No Redness Cardiovascular : No Chest Pain, No SOB, No Dyspnea on Exertion Respiratory : No Cough, No Sputum Gastrointestinal : No Nausea, No Vomiting, No Diarrhea, No abdominal Pain, pos flank pain Genitourinary : pos Dysuria, No Urinary Frequency, No Hematuria, Musculoskeletal : No joint pain, No Myalgias, No Joint Swelling Skin : No Skin Lesions, No rash Neuro : No Weakness, No Numbness, pos Dizziness, no Headache Psych : No Anxiety/Panic, No Depression Heme/Lymph: No Bruising, No Bleeding,No Lymphadenopathy Endocrine : No Polyuria, No Polydipsia All other systems reviewed and are negative PMFSH Past Medical History Attestation statement: The following information was validated with the patient. Medical History Mood disorder PTSD (post-traumatic stress disorder) Polysubstance (including opioids) dependence, daily use Social History Social History Household Members: Other Household Members Other:: homeless Housing: Homeless Do you presently have visiting nurse or other home services: No Alcohol intake: current Alcohol intake frequency: does not drink Comment: 1:1 sitter with pt Patient Tobacco Use Status: Current everyday Tobacco user Tobacco use type: Cigarette Cigarette Packs Per Day: 1 Cigarettes Per Day: 20.0 Years Smoked: 20 e-Cigarette/Vaping Use: Former Use Second Hand Smoke Exposure: Yes Substance Use Type: Crack/Cocaine Advance Directives: No Advance Directives Information Provided: Yes service: No Current occupational status: unemployed Sexual orientation: Straight/Heterosexual Physical Exam 2 Vital Signs: Vital Signs: Last Vital Signs Temp 98.3 F 06/02/23 05:26 Pulse 69 06/02/23 05:26 Resp 14 06/02/23 05:26 BP 113/77 06/02/23 05:26 Pulse Ox 99 06/02/23 05:26 O2 Del Method Room Air 06/02/23 05:26 BMI result Body Mass Index 28.7 Appearance: Alert. Oriented X3. No acute distress. watching shows on his phone seems very non bothered asking for arturo marcie Eyes: Pupils equal, round and reactive to light. ENT: Pharynx normal. Neck: Normal inspection. Neck supple. CVS: Normal heart rate and rhythm. Pulses normal. Respiratory: No respiratory distress. Breath sounds normal. Abdomen: Soft and nontender. Skin: Skin warm and dry. Normal skin color. Normal skin turgor. Extremities: No lower extremity edema. No calf ttp Neuro: Oriented X 3. No motor deficit. No sensory deficit. Course Course Course Narrative: CPK 3,000 will give 2L of fluid and reassess - signed out to oncoming provider Medical Decision Making Medical Decision Making [facility] Narrative: 32 yo male with PMH of mood disorder, PTSD, cocaine and opiate use - currently on methadone, rhabdomyolysis in the past here with dizziness after walking after an hour he has no focal deficits no CP/SOB his VS are stable - he is drinking arturo marcie. He states he is eating. He is watching a show on his phone. He is overall not toxic will obtain labs for anemia and dehydration. He also reports L flank pain but abdomen is benign - will obtain UA he appears very comfortable for renal colic and has no hx of stones. Differential Diagnosis Differential Diagnoses: The differential diagnosis associated with the presentation includes dehydration, rhabdo Admission/Observation Consideration of admission/observation: Escalation of care including admission/observation considered Lab Data [facility] Lab Attestation statement: I reviewed the patient's lab results. 06/02/23 05:56 06/02/23 05:56 Labs: Lab Results 06/02/23 Range/Units 05:56 WBC 8.1 (4.8-10.8) X10*3/uL RBC 4.32 L (4.60-5.80) X10*6/uL Hgb 11.8 L (14.0-18.0) g/dl Hct 36.9 L (42.0-52.0) % MCV 85.4 (80.0-98.0) fL MCH 27.3 (27.0-33.0) pg MCHC 32.0 (31.0-36.0) g/dl RDW 13.9 (11.0-16.0) % Plt Count 243 (160-400) X10*3/uL MPV 10.2 (9.4-12.4) fL Immature Gran % (Auto) 0.2 (0.0-0.4) % Neut % (Auto) 59.3 (45-73) % Lymph % (Auto) 28.0 (20-40) % [place] % (Auto) 8.0 (2-11) % Eos % (Auto) 4.1 H (0-4) % Baso % (Auto) 0.4 (0-2) % Lymph # (Auto) 2.3 (1.2-4.9) X10*3/uL [place] # (Auto) 0.7 (0.1-1.2) X10*3/uL Eos # (Auto) 0.3 (0.0-0.4) X10*3/uL Baso # (Auto) 0.0 (0.0-0.2) X10*3/uL Abs Immat Gran (auto) 0.02 (0.00-0.03) X10*3/uL Absolute Neuts (auto) 4.8 (2.0-8.3) x10*3/uL Absolute Nucleated RBC 0.000 (0.0-0.012) X10*3/uL Nucleated RBC % (auto) 0.0 (0.0-0.2) /100WBC Sodium 143 (135-145) mmol/L Potassium 4.0 (3.3-5.1) mmol/L Chloride 109 H (96-108) mmol/L Carbon Dioxide 25 (22-29) mmol/L Anion Gap 13 (12-20) BUN 25 H (9-16) mg/dL Creatinine 0.97 (0.5-1.4) mg/dL Estim Creat Clear Calc 123.8 Estimated GFR > 60 Random Glucose 94 (60-115) mg/dL Calcium 9.3 D (8.4-10.2) mg/dL Magnesium 2.8 H (1.6-2.6) mg/dL Total Bilirubin 0.5 (0.0-1.0) mg/dL Direct Bilirubin 0.2 (0.0-0.5) mg/dL AST 49 H (5-37) U/L ALT 18 (0-40) U/L Alkaline Phosphatase 65 (39-117) U/L Total Creatine Kinase 3174 H (38-174) U/L Total Protein 7.5 (6.5-8.0) g/dL Albumin 4.5 (3.5-5.0) g/dL Independent Interpretation I performed an independent interpretation of an: EKG Interpretation: Rate: 52 Rhythm: sinus bradycardia [place]: normal Normal P waves. Normal CAR. Normal QRS complex. ST T wave : nonspecific no MAIRA qTC: 451 prior studies: no acute ischemia The study has been interpreted contemporaneously by me. . Independent Historian Clinical information obtained from an independent historian. History obtained from or confirmed by: EMS External Record Review External record reviewed: Inpatient record Discharge Plan Discharge Clinical Impression: Dizziness Rhabdomyolysis Qualifiers: Rhabdomyolysis type: non-traumatic Qualified Code(s): M62.82 - Rhabdomyolysis Patient Disposition: Still a Patient Instructions: Rhabdomyolysis (ED), Dizziness (ED) Additional Instructions: you muscle markers showed you had rhabdo you responded to fluids. this has happened to you multiple times - possibly related to your cocaine use. please stop using cocaine. return for worsening muscle pain, inability to urinate, weakness or any other concerns. you should monitor your kidney function with your doctor in the next week drink 60 ounces of water a day Prescriptions: No Action methadone 10 mg/mL Concentrate 195 mg PO DAILY gemfibrozil 600 mg Tablet 600 mg PO BIDAC Qty: 28 0RF aripiprazole 10 mg Tablet 10 mg PO DAILY Qty: 30 0RF clonidine HCl 0.1 mg tablet 0.2 mg PO BID PRN (Reason: Anxiety) Qty: 60 0RF gabapentin 600 mg tablet 600 mg PO BID@0900,1500 Qty: 60 0RF paroxetine HCl 10 mg tablet 10 mg PO DAILY Qty: 30 0RF Rx Instructions: tdd = 50 mg nicotine (polacrilex) 2 mg gum 4 mg PO Q1H PRN (Reason: Smoking Cessation) Qty: 60 0RF gabapentin 400 mg capsule 800 mg PO BEDTIME Qty: 60 0RF hydroxyzine pamoate 50 mg capsule 100 mg PO BID PRN (Reason: Anxiety) Qty: 60 0RF melatonin 3 mg tablet 9 mg PO BEDTIME Qty: 60 0RF nicotine 21 mg/24 hr patch 24 hour 1 patch topical DAILY Qty: 30 0RF docusate sodium 100 mg Capsule 100 mg PO BEDTIME PRN (Reason: Constipation) 30 Days Qty: 30 0RF paroxetine HCl 40 mg tablet 40 mg PO DAILY Qty: 30 0RF Rx Instructions: tdd = 50 mg prazosin 2 mg capsule 4 mg PO BEDTIME Qty: 60 0RF naproxen 500 mg tablet 500 mg PO BID PRN (Reason: Headache) Qty: 30 0RF
[2023-06-02 06:00] LABS: Basophils Percent Auto 0.4 % (0-2); Eosinophils Absolute Auto 0.3 X10*3/uL (0.0-0.4); Eosinophils Percent Auto 4.1 % (0-4); Hematocrit 36.9 % (42.0-52.0); Hemoglobin 11.8 g/dl (14.0-18.0); Imm Gran Abs Auto 0.02 X10*3/uL (0.00-0.03); Imm Gran Pct Auto 0.2 % (0.0-0.4); Lymphocytes Absolute Auto 2.3 X10*3/uL (1.2-4.9); MANUAL DIFF FLAG NO; Mean Corpuscular Hemoglobin 27.3 pg (27.0-33.0); Mean Corpuscular Volume 85.4 fL (80.0-98.0); Mean Platelet Volume 10.2 fL (9.4-12.4); Monocytes Absolute Auto 0.7 X10*3/uL (0.1-1.2); Neutrophils Absolute Auto 4.8 x10*3/uL (2.0-8.3); Neutrophils Percent Auto 59.3 % (45-73); Platelet Count 243 X10*3/uL (160-400); Red Blood Count 4.32 X10*6/uL (4.60-5.80); Red Cell Distribution Width 13.9 % (11.0-16.0); White Blood Count 8.1 X10*3/uL (4.8-10.8)
[2023-06-02 06:14] LABS: Alanine Aminotransferase 18 U/L (0-40); Albumin Level 4.5 g/dL (3.5-5.0); Alkaline Phosphatase 65 U/L (39-117); Anion Gap 13 (12-20); Aspartate Amino Transferase 49 U/L (5-37); Bilirubin Direct 0.2 mg/dL (0.0-0.5); Bilirubin Total 0.5 mg/dL (0.0-1.0); Blood Urea Nitrogen 25 mg/dL (9-16); Calcium 9.3 mg/dL (8.4-10.2); Carbon Dioxide 25 mmol/L (22-29); Chloride 109 mmol/L (96-108); Creatinine Clr Calc Pharmacy 123.8; Estimated Glomerular Filt Rate > 60; Glucose Random 94 mg/dL (60-115); Magnesium 2.8 mg/dL (1.6-2.6); Sodium 143 mmol/L (135-145); Total Protein 7.5 g/dL (6.5-8.0)
--- NOTE | 2023-06-02 06:37 | PC.NURSE ---
2 failed attempts at obtaining an IV line.
[2023-06-02] MEDS: 0.9 % Sodium Chloride 1,000 ML 999 ML IV ×2 (07:22)
[2023-06-02 07:25] VITALS: BP 97/50; PULSE 64; RESP 16; O2SAT 98
[2023-06-02 08:59] VITALS: BP 94/44; PULSE 60; RESP 16; O2SAT 99
--- NOTE | 2023-06-02 09:00 | PC.NURSE ---
Fluids complete. Drawing repeat CPK at this time
[2023-06-02] MEDS: Lactated Ringers 1,000 ML 999 ML IV ×2 (10:41→11:56)
[2023-06-02 10:43] VITALS: BP 96/56; PULSE 65; RESP 16; TEMP 36.6; O2SAT 98
[2023-06-02 11:42] LABS: Appearance Urine Clear; Color Urine Yellow; Glucose Urine UA Negative (Negative); Leukocyte Esterase Urine Negative (Negative); Nitrite Urine Negative (Negative); Specific Gravity - Urine >= 1.030 (1.005-1.025); UMIC TRIGGER UACC YES; Urine Blood Negative (Negative); Urine Ketones Trace mg/dL (Negative); Urine Protein 30 (1+) mg/dL (Neg-Trace)
[2023-06-02 11:47] LABS: Bacteria Urine None Seen (None Seen); RBC Urine 0-2 /HPF (0-2); Squamous Epithelial Cell Urine 0-2 /HPF (0-2); WBC Urine 0-5 /HPF (0-5)
--- NOTE | 2023-06-02 11:49 | PC.NURSE ---
Methadone dose verified with [facility] 195mg, form faxed and Dr Jo aware
--- NOTE | 2023-06-02 11:55 | HE.PHANOTE ---
Methadone verification received a dose of 195 mg methadone from [facility] on 06/01/23
[2023-06-02] MEDS: methADONE HCl 20 MG/2 ML ORAL.CONC 195 MG PO (12:36)
[2023-06-02] MEDS: Acetaminophen 325 MG TABLET 975 MG PO (12:36)
[2023-06-02 13:20] VITALS: BP 102/61; PULSE 45; RESP 16; TEMP 36.2; O2SAT 97
[2023-06-02 14:20] LABS: Anion Gap 8 (12-20); Blood Urea Nitrogen 21 mg/dL (9-16); Calcium 8.3 mg/dL (8.4-10.2); Carbon Dioxide 26 mmol/L (22-29); Chloride 111 mmol/L (96-108); Estimated Glomerular Filt Rate > 60; Glucose Random 107 mg/dL (60-115); Potassium 4.1 mmol/L (3.3-5.1); Sodium 141 mmol/L (135-145)
[2023-06-02 16:25] VITALS: BP 106/63; PULSE 50; RESP 16; TEMP 36.4; O2SAT 99
== END 2023-06-02 16:27 | disposition home or self-care (01) ==
PROVIDERS: Emergency Medicine; Emergency Provider Emergency Medicine Emergency Medical Services
DX: R42 Dizziness and giddiness (principal); R00.1 Bradycardia, unspecified; M62.82 Rhabdomyolysis; F14.10 Cocaine abuse, uncomplicated; F17.200 Nicotine dependence, unspecified, uncomplicated; R11.2 Nausea with vomiting, unspecified; Z71.6 Tobacco abuse counseling; Z71.51 Drug abuse counseling and surveillance of drug abuser
CPT/HCPCS: 36415; 80048; 80076; 81001; 82550; 83735; 85025; 93005; 96360; 96361; 99285; J7120

== ENCOUNTER → 2023-06-02 05:34 | Outpatient (BNV) | payer OTHER, SELFPAY | PROVIDERS: Emergency Provider Emergency Medicine Emergency Medical Services; Visit Provider Internal Medicine Cardiovascular Disease | DX: R00.1 Bradycardia, unspecified (principal) | CPT/HCPCS: 93010 ==

== ENCOUNTER 2023-06-22 06:44 | Emergency (ER) | payer OTHER, SELFPAY ==
--- NOTE | 2023-06-22 | ECG_ITS ---
Test Reason : CHEST PAIN Blood Pressure : / mmHG Vent. Rate : 063 BPM Atrial Rate : 063 BPM P-R Int : 156 ms QRS Dur : 076 ms QT Int : 424 ms P-R-T Axes : 020 046 043 degrees QTc Int : 433 ms Normal sinus rhythm with sinus arrhythmia Normal ECG When compared with ECG of 02-JUN-2023 05:44, No significant change was found Referred By: Generic ED Physician Electronically Signed By:RICARDO DEL CASTILLO MD
[2023-06-22 06:51] VITALS: BP 122/70; PULSE 64; O2SAT 100
[2023-06-22 06:53] VITALS: BMI 27.3
[2023-06-22 07:16] LABS: MANUAL DIFF FLAG NO
[2023-06-22 07:30] LABS: Basophils Percent Auto 0.6 % (0-2); COVID-19 Test Negative (Negative); Eosinophils Absolute Auto 0.3 X10*3/uL (0.0-0.4); Eosinophils Percent Auto 4.1 % (0-4); Hematocrit 36.9 % (42.0-52.0); Hemoglobin 12.3 g/dl (14.0-18.0); IDNOW Serial# 08D9AD1C; Imm Gran Abs Auto 0.02 X10*3/uL (0.00-0.03); Imm Gran Pct Auto 0.3 % (0.0-0.4); Lymphocytes Absolute Auto 1.6 X10*3/uL (1.2-4.9); Lymphocytes Percent Auto 23.8 % (20-40); Mean Corpuscular HGB Conc 33.3 g/dl (31.0-36.0); Mean Corpuscular Volume 84.1 fL (80.0-98.0); Mean Platelet Volume 10.3 fL (9.4-12.4); Monocytes Absolute Auto 0.7 X10*3/uL (0.1-1.2); Monocytes Percent Auto 10.5 % (2-11); Neutrophils Absolute Auto 4.2 x10*3/uL (2.0-8.3); Neutrophils Percent Auto 60.7 % (45-73); Platelet Count 267 X10*3/uL (160-400); Red Blood Count 4.39 X10*6/uL (4.60-5.80); Red Cell Distribution Width 13.6 % (11.0-16.0); White Blood Count 6.9 X10*3/uL (4.8-10.8)
[2023-06-22 07:37] LABS: Alanine Aminotransferase 17 U/L (0-40); Albumin Level 4.4 g/dL (3.5-5.0); Alkaline Phosphatase 65 U/L (39-117); Anion Gap 16 (12-20); Aspartate Amino Transferase 27 U/L (5-37); Bilirubin Total 0.4 mg/dL (0.0-1.0); Blood Urea Nitrogen 19 mg/dL (9-16); Calcium 9.6 mg/dL (8.4-10.2); Carbon Dioxide 22 mmol/L (22-29); Chloride 107 mmol/L (96-108); Estimated Glomerular Filt Rate > 60; Ethanol < 10 mg/dL; Glucose Random 97 mg/dL (60-115); Potassium 3.9 mmol/L (3.3-5.1); Sodium 141 mmol/L (135-145); Total Protein 7.7 g/dL (6.5-8.0)
--- NOTE | 2023-06-22 08:41 | PC.NURSE ---
PT WENT UP TO SECURITY AND SAID HE'S SI NOW.
--- NOTE | 2023-06-22 08:49 | ED_ITS ---
HPI - General Adult General Chief complaint: Abdominal Pain Stated complaint: flank pain Time Seen by Provider: 06/22/23 08:49 Source: patient Mode of arrival: ambulatory Limitations: no limitations History of Present Illness HPI narrative: patient with substance abuse disorder, diffuse pain now stating he is suicidal Onset (ago): hour(s) Related Data Home Medications Medication Instructions Recorded Confirmed methadone 10 mg/mL oral concentrate 195 mg PO DAILY 12/01/22 06/22/23 Previous Rx's Medication Instructions Recorded aripiprazole 10 mg tablet 10 mg PO DAILY #30 tabs 12/06/22 clonidine HCl 0.1 mg tablet 0.2 mg (2 x 0.1 mg) PO BID PRN 12/06/22 Anxiety #60 tabs docusate sodium 100 mg capsule 100 mg PO BEDTIME PRN Constipation 12/06/22 30 days #30 caps gabapentin 400 mg capsule 800 mg (2 x 400 mg) PO BEDTIME #60 12/06/22 caps gabapentin 600 mg tablet 600 mg PO BID@0900,1500 #60 tabs 12/06/22 gemfibrozil 600 mg tablet 600 mg PO BIDAC #28 tabs 12/06/22 hydroxyzine pamoate 50 mg capsule 100 mg (2 x 50 mg) PO BID PRN 12/06/22 Anxiety #60 caps melatonin 3 mg tablet 9 mg (3 x 3 mg) PO BEDTIME #60 tabs 12/06/22 naproxen 500 mg tablet 500 mg PO BID PRN Headache #30 tabs 12/06/22 nicotine (polacrilex) 2 mg gum 4 mg PO Q1H PRN Smoking Cessation 12/06/22 #60 ea nicotine 21 mg/24 hr daily 1 patch topical DAILY #30 ea 12/06/22 transdermal patch paroxetine HCl 10 mg tablet 10 mg PO DAILY #30 tabs 12/06/22 paroxetine HCl 40 mg tablet 40 mg PO DAILY #30 tabs 12/06/22 prazosin 2 mg capsule 4 mg (2 x 2 mg) PO BEDTIME #60 caps 12/06/22 Allergies Allergy/AdvReac Type Severity Reaction Status Date / Time amoxicillin Allergy Hives Verified 06/22/23 06:57 Penicillins [PCN] Allergy Hives Verified 06/22/23 06:57 seafood Allergy Difficulty Verified 06/22/23 06:57 Breathing Review of Systems 2 Review of Systems: Yes all other systems are reviewed and are negative Neurologic: Denies Sensory deficit (Neuro) PMFSH Past Medical History Onset Date is defined in the Problem List Problems that require an onset date and time if occurred within 24 hrs of arrival to the ED Aortic Dissection and Rupture; Neurologic impairment; Cardiopulmonary Arrest; Endotracheal Intubation; Insertion or Replacement of Mechanical Circulatory Assist Device Medical History Mood disorder PTSD (post-traumatic stress disorder) Polysubstance (including opioids) dependence, daily use Social History Social History Household Members: Other Household Members Other:: homeless Housing: Homeless Do you presently have visiting nurse or other home services: No Alcohol intake: current Alcohol intake frequency: does not drink Comment: 1:1 sitter with pt Patient Tobacco Use Status: Current everyday Tobacco user Tobacco use type: Cigarette Cigarette Packs Per Day: 1 Cigarettes Per Day: 20.0 Years Smoked: 20 e-Cigarette/Vaping Use: Former Use Second Hand Smoke Exposure: Yes Substance Use Type: Crack/Cocaine Advance Directives: No Advance Directives Information Provided: No service: No Current occupational status: unemployed Sexual orientation: Straight/Heterosexual Physical Exam ED Vital Signs: Vital Signs - 24 hr 06/22/23 06:53 06/22/23 12:07 Temperature 97.5 F Pulse Rate 63 Respiratory Rate 16 Blood Pressure 95/48 L Pulse Oximetry 95 Oxygen Delivery Method Room Air Room Air BMI result Body Mass Index 27.3 Const General: healthy appearing Nutritional Appearance: average body habitus Orientation/consciousness: oriented to person and patient oriented x3 Limitations: no limitations HENMT Head: Yes normal to inspection Ears: external ears normal General nose exam: Normal external nose present Mouth: Normal oral and palatal mucosa present and oropharynx normal Throat: Yes posterior oropharynx normal Eyes General: appearance normal, both eyes and all related structures Neck Neck: Yes normal visual inspection Chest Chest palpation & inspection: normal inspection of the chest Resp Auscultation: clear to auscultation bilaterally Cardio Jugular venous distension: no JVD Rate: regular rate Rhythm: regular rhythm Heart sounds: S1 normal heart sound present and S2 normal heart sound present GI Inspection: Yes normal to inspection Palpation (GI): Soft to palpation, nontender and No hepatosplenomegaly present Auscultation: normal bowel sounds General: Yes no CVA tenderness Back/Spine/Pelvis Back: no CVA tenderness Skin General skin exam: no rashes or lesions noted Neuro General: oriented to person and patient oriented x3 Cranial nerves: Yes CN's II-XII intact bilaterally Motor exam (neuro): 5/5 motor strength present throughout Sensory Exam: No Sensory deficit (Neuro) Extrem General: Yes normal to inspection Psych Appearance: grossly normal Course Reevaluation(s) Reevaluation #1: patient is medically cleared for crisis Reevaluation #2: Patient accepted to dual diagnosis facility Time: 13:00 Medications Administered Discontinued Medications Generic Name Dose Route Start Last Admin Trade Name Freq PRN Reason Stop Dose Admin Methadone HCl 195 mg 06/22/23 12:10 06/22/23 12:51 Methadone Hcl 20 Mg/2 Ml Oral.Conc PO 06/22/23 12:11 195 mg ONCE ONE Administration Medical Decision Making Differential Diagnosis Differential Diagnoses: The differential diagnosis associated with the presentation includes (drug overdose, polysubstance abuse, depression, suicidal ideation, rhabdomyolysis) Admission/Observation Consideration of admission/observation: Escalation of care including admission/observation considered (upon arrival patient was considered for admission) Consult Healthcare Provider Management of the patient was discussed with: Behavioral Health Provider Lab Data MDM Lab Attestation statement: I reviewed the patient's lab results. (no evidence of rhabdo, polysubstance abuse) 06/22/23 07:10 06/22/23 07:10 Labs: Lab Results 06/22/23 06/22/23 Range/Units 07:10 10:34 WBC 6.9 (4.8-10.8) X10*3/uL RBC 4.39 L (4.60-5.80) X10*6/uL Hgb 12.3 L (14.0-18.0) g/dl Hct 36.9 L (42.0-52.0) % MCV 84.1 (80.0-98.0) fL MCH 28.0 (27.0-33.0) pg MCHC 33.3 (31.0-36.0) g/dl RDW 13.6 (11.0-16.0) % Plt Count 267 (160-400) X10*3/uL MPV 10.3 (9.4-12.4) fL Immature Gran % (Auto) 0.3 (0.0-0.4) % Neut % (Auto) 60.7 (45-73) % Lymph % (Auto) 23.8 (20-40) % [place] % (Auto) 10.5 (2-11) % Eos % (Auto) 4.1 H (0-4) % Baso % (Auto) 0.6 (0-2) % Lymph # (Auto) 1.6 (1.2-4.9) X10*3/uL [place] # (Auto) 0.7 (0.1-1.2) X10*3/uL Eos # (Auto) 0.3 (0.0-0.4) X10*3/uL Baso # (Auto) 0.0 (0.0-0.2) X10*3/uL Abs Immat Gran (auto) 0.02 (0.00-0.03) X10*3/uL Absolute Neuts (auto) 4.2 (2.0-8.3) x10*3/uL Absolute Nucleated RBC 0.000 (0.0-0.012) X10*3/uL Nucleated RBC % (auto) 0.0 (0.0-0.2) /100WBC Sodium 141 (135-145) mmol/L Potassium 3.9 (3.3-5.1) mmol/L Chloride 107 (96-108) mmol/L Carbon Dioxide 22 (22-29) mmol/L Anion Gap 16 (12-20) BUN 19 H (9-16) mg/dL Creatinine 0.73 (0.5-1.4) mg/dL Estim Creat Clear Calc 150.0 Estimated GFR > 60 Random Glucose 97 (60-115) mg/dL Calcium 9.6 D (8.4-10.2) mg/dL Total Bilirubin 0.4 (0.0-1.0) mg/dL AST 27 (5-37) U/L ALT 17 (0-40) U/L Alkaline Phosphatase 65 (39-117) U/L Total Creatine Kinase 352 H (38-174) U/L Total Protein 7.7 (6.5-8.0) g/dL Albumin 4.4 (3.5-5.0) g/dL Urine Color Dark Yellow Urine Appearance Cloudy Urine pH 5.5 (5.0-9.0) Ur Specific [place] >= 1.030 H (1.005-1.025) Urine Protein Trace (Neg-Trace) mg/dL Urine Glucose (UA) Negative (Negative) mg/dL Urine Ketones 15 (Negative) mg/dL Urine Blood Negative (Negative) Urine Nitrite Negative (Negative) Ur Leukocyte Esterase Negative (Negative) Urine Opiates Screen POSITIVE H (Not Detect) Urine Fentanyl Screen POSITIVE H (Not Detect) Ur Barbiturates Screen Not Detected (Not Detect) Ur Phencyclidine Scrn Not Detected (Not Detect) Ur Amphetamines Screen Not Detected (Not Detect) U Benzodiazepines Scrn POSITIVE H (Not Detect) Urine Cocaine Screen POSITIVE H (Not Detect) U Marijuana (THC) Screen POSITIVE H (Not Detect) Ethyl Alcohol < 10 mg/dL COVID-19 (JAMIE) Negative (Negative) COVID-19 Clin Com See Note Independent Historian Clinical information obtained from an independent historian. History obtained from or confirmed by: EMS External Record Review External record reviewed: Outpatient record Chronic Conditions Patient?s care impacted by: Other (psychiatric and polysubstance abuse) Social Determinants Patient?s care significantly limited by Social Determinants of Health including: Low income and Alcoholism and drug addiction in family Discharge Plan Discharge Clinical Impression: Opioid use disorder, moderate, dependence, Cocaine use disorder, moderate, dependence, Mood disorder Patient Disposition: Xfer Psychiatric Hosp Transfer Details: accepted for dual diagnosis: Dr. Stout Prescriptions: No Action methadone 10 mg/mL Concentrate 195 mg PO DAILY gemfibrozil 600 mg Tablet 600 mg PO BIDAC Qty: 28 0RF aripiprazole 10 mg Tablet 10 mg PO DAILY Qty: 30 0RF clonidine HCl 0.1 mg tablet 0.2 mg PO BID PRN (Reason: Anxiety) Qty: 60 0RF gabapentin 600 mg tablet 600 mg PO BID@0900,1500 Qty: 60 0RF paroxetine HCl 10 mg tablet 10 mg PO DAILY Qty: 30 0RF Rx Instructions: tdd = 50 mg nicotine (polacrilex) 2 mg gum 4 mg PO Q1H PRN (Reason: Smoking Cessation) Qty: 60 0RF gabapentin 400 mg capsule 800 mg PO BEDTIME Qty: 60 0RF hydroxyzine pamoate 50 mg capsule 100 mg PO BID PRN (Reason: Anxiety) Qty: 60 0RF melatonin 3 mg tablet 9 mg PO BEDTIME Qty: 60 0RF nicotine 21 mg/24 hr patch 24 hour 1 patch topical DAILY Qty: 30 0RF docusate sodium 100 mg Capsule 100 mg PO BEDTIME PRN (Reason: Constipation) 30 Days Qty: 30 0RF paroxetine HCl 40 mg tablet 40 mg PO DAILY Qty: 30 0RF Rx Instructions: tdd = 50 mg prazosin 2 mg capsule 4 mg PO BEDTIME Qty: 60 0RF naproxen 500 mg tablet 500 mg PO BID PRN (Reason: Headache) Qty: 30 0RF
[2023-06-22 10:59] LABS: Appearance Urine Cloudy; Color Urine Dark Yellow; Glucose Urine UA Negative (Negative); Leukocyte Esterase Urine Negative (Negative); Nitrite Urine Negative (Negative); PH 5.5 (5.0-9.0); Specific Gravity - Urine >= 1.030 (1.005-1.025); Urine Blood Negative (Negative); Urine Ketones 15 mg/dL (Negative); Urine Protein Trace mg/dL (Neg-Trace)
[2023-06-22 11:05] LABS: Amphetamine Screen Urine Not Detected (Not Detect); Barbiturates, Urine Not Detected (Not Detect); Benzodiazepines Screen Urine POSITIVE (Not Detect); Cannabinoid Screen Urine POSITIVE (Not Detect); Cocaine Screen Urine POSITIVE (Not Detect); Fentanyl, urine POSITIVE (Not Detect); Opiate Screen Urine POSITIVE (Not Detect); Phencyclidine Screen Urine Not Detected (Not Detect)
[2023-06-22 12:07] VITALS: BP 95/48; PULSE 63; RESP 16; TEMP 36.4; O2SAT 95
--- NOTE | 2023-06-22 12:29 | HE.PHANOTE ---
RE: methadone Verification form from [facility], last dose 195mg on 06/20/23
[2023-06-22] MEDS: methADONE HCl 20 MG/2 ML ORAL.CONC 195 MG PO (12:51)
--- NOTE | 2023-06-22 12:53 | MHC.CARE ---
Pt was [facility] [address] [facility] [address] Dr. Stout
--- NOTE | 2023-06-22 13:31 | PC.NURSE ---
Meal provided. pt sitting up watching tv, communicating calmly with staff.
[2023-06-22 17:12] VITALS: BP 90/60; PULSE 64; RESP 16; TEMP 36.5; O2SAT 98
== END 2023-06-22 17:19 ==
PROVIDERS: Emergency Medicine; Emergency Provider Emergency Medicine
DX: F19.10 Other psychoactive substance abuse, uncomplicated (principal); R45.851 Suicidal ideations; F14.20 Cocaine dependence, uncomplicated; F11.20 Opioid dependence, uncomplicated; F43.10 Post-traumatic stress disorder, unspecified; F39 Unspecified mood [affective] disorder; F17.210 Nicotine dependence, cigarettes, uncomplicated; Z79.899 Other long term (current) drug therapy; Z11.52 Encounter for screening for COVID-19
CPT/HCPCS: 80053; 80307; 81003; 82550; 85025; 87635; 93005; 99285; S9485

== ENCOUNTER → 2023-06-22 07:02 | Outpatient (BNV) | payer OTHER, SELFPAY | PROVIDERS: Emergency Provider Emergency Medicine; Visit Provider Internal Medicine Cardiovascular Disease | DX: R07.9 Chest pain, unspecified (principal) | CPT/HCPCS: 93010 ==

== ENCOUNTER 2023-07-19 20:57 | Inpatient (IN) | payer OTHER, SELFPAY ==
[2023-07-19 21:05] VITALS: BP 107/72; PULSE 101; RESP 16; TEMP 36.7; O2SAT 98; BMI 28.8
[2023-07-19 22:16] LABS: MANUAL DIFF FLAG NO
[2023-07-19 22:17] LABS: Basophils Percent Auto 0.2 % (0-2); Eosinophils Percent Auto 0.4 % (0-4); Hematocrit 37.5 % (42.0-52.0); Hemoglobin 12.4 g/dl (14.0-18.0); Imm Gran Abs Auto 0.03 X10*3/uL (0.00-0.03); Imm Gran Pct Auto 0.3 % (0.0-0.4); Lymphocytes Absolute Auto 1.5 X10*3/uL (1.2-4.9); Lymphocytes Percent Auto 16.5 % (20-40); Mean Corpuscular HGB Conc 33.1 g/dl (31.0-36.0); Mean Corpuscular Hemoglobin 27.6 pg (27.0-33.0); Mean Corpuscular Volume 83.5 fL (80.0-98.0); Mean Platelet Volume 10.9 fL (9.4-12.4); Monocytes Absolute Auto 0.8 X10*3/uL (0.1-1.2); Monocytes Percent Auto 9.1 % (2-11); Neutrophils Absolute Auto 6.6 x10*3/uL (2.0-8.3); Neutrophils Percent Auto 73.5 % (45-73); Platelet Count 235 X10*3/uL (160-400); Red Blood Count 4.49 X10*6/uL (4.60-5.80)
[2023-07-19 22:29] LABS: COVID-19 Test Negative (Negative); IDNOW Serial# 152EDE1D
[2023-07-19 22:39] LABS: Alanine Aminotransferase 24 U/L (0-40); Alkaline Phosphatase 78 U/L (39-117); Anion Gap 18 (12-20); Aspartate Amino Transferase 72 U/L (5-37); Bilirubin Total 0.5 mg/dL (0.0-1.0); Blood Urea Nitrogen 30 mg/dL (9-16); Calcium 10.3 mg/dL (8.4-10.2); Carbon Dioxide 27 mmol/L (22-29); Chloride 102 mmol/L (96-108); Estimated Glomerular Filt Rate > 60; Ethanol < 10 mg/dL; Glucose Random 105 mg/dL (60-115); Potassium 4.1 mmol/L (3.3-5.1); Sodium 143 mmol/L (135-145); Total Protein 8.5 g/dL (6.5-8.0)
[2023-07-19 22:44] LABS: Acetaminophen LAB < 3 mcg/mL (<30); Salicylate < 5.0 mg/dL (15-30)
--- NOTE | 2023-07-19 22:55 | ECG_ITS ---
Test Reason : ASSESS QT Blood Pressure : / mmHG Vent. Rate : 079 BPM Atrial Rate : 079 BPM P-R Int : 160 ms QRS Dur : 076 ms QT Int : 434 ms P-R-T Axes : 055 060 056 degrees QTc Int : 497 ms Normal sinus rhythm Prolonged QT Abnormal ECG When compared with ECG of 22-JUN-2023 07:02, QT has lengthened Referred By: Emil Doherty Electronically Signed By:NIRANJAN GORDON
[2023-07-19] MEDS: LORazepam 1 MG TABLET 2 MG PO (23:35)
--- NOTE | 2023-07-19 23:43 | ED_ITS ---
HPI - General Adult General Chief complaint: Psychiatric Symptoms Stated complaint: si Time Seen by Provider: 07/19/23 22:37 Source: patient, RN notes reviewed and old records reviewed Mode of arrival: ambulatory Limitations: no limitations History of Present Illness HPI narrative: 32-year-old male with past medical history significant for PTSD, cocaine abuse, opiate abuse presents for evaluation of suicidal ideation Patient reports he was recently at the [facility] psychiatry and discharged a couple days ago He states that he has not filled his prescriptions for his psychiatric medications and therefore aside increasing depression with suicidal ideation Patient reports that he attempted suicide today by ?injecting 200 dollars worth of cocaine. ? He states that he currently feels awful He thinks some of this may be due to the fact that he has not had methadone since yesterday He has a last dose letter dated 07/18/2023 for 195 mg of methadone Patient denies any chest pain Related Data Home Medications Medication Instructions Recorded Confirmed methadone 10 mg/mL oral concentrate 195 mg PO DAILY 12/01/22 07/19/23 Previous Rx's Medication Instructions Recorded aripiprazole 10 mg tablet 10 mg PO DAILY #30 tabs 12/06/22 clonidine HCl 0.1 mg tablet 0.2 mg (2 x 0.1 mg) PO BID PRN 12/06/22 Anxiety #60 tabs docusate sodium 100 mg capsule 100 mg PO BEDTIME PRN Constipation 12/06/22 30 days #30 caps gabapentin 400 mg capsule 800 mg (2 x 400 mg) PO BEDTIME #60 12/06/22 caps gabapentin 600 mg tablet 600 mg PO BID@0900,1500 #60 tabs 12/06/22 gemfibrozil 600 mg tablet 600 mg PO BIDAC #28 tabs 12/06/22 hydroxyzine pamoate 50 mg capsule 100 mg (2 x 50 mg) PO BID PRN 12/06/22 Anxiety #60 caps melatonin 3 mg tablet 9 mg (3 x 3 mg) PO BEDTIME #60 tabs 12/06/22 naproxen 500 mg tablet 500 mg PO BID PRN Headache #30 tabs 12/06/22 nicotine (polacrilex) 2 mg gum 4 mg PO Q1H PRN Smoking Cessation 12/06/22 #60 ea nicotine 21 mg/24 hr daily 1 patch topical DAILY #30 ea 12/06/22 transdermal patch paroxetine HCl 10 mg tablet 10 mg PO DAILY #30 tabs 12/06/22 paroxetine HCl 40 mg tablet 40 mg PO DAILY #30 tabs 12/06/22 prazosin 2 mg capsule 4 mg (2 x 2 mg) PO BEDTIME #60 caps 12/06/22 Allergies Allergy/AdvReac Type Severity Reaction Status Date / Time amoxicillin Allergy Hives Verified 06/22/23 06:57 Penicillins [PCN] Allergy Hives Verified 06/22/23 06:57 seafood Allergy Difficulty Verified 06/22/23 06:57 Breathing Review of Systems 2 Constitutional: Constitutional: Denies chills, Denies fever(s), Reports malaise and Reports weakness Eyes: Eyes: Denies blurry vision Cardiovascular: Cardiovascular: Denies chest pain and Denies dyspnea Respiratory: Respiratory: Denies cough and Denies dyspnea Gastrointestinal: Gastrointestinal: Denies abdominal pain Musculoskeletal: Musculoskeletal: Reports myalgias Integumentary/Breasts: Skin/Breast: Denies rash Neurologic: Reports weakness PMFSH Past Medical History Medical History Mood disorder PTSD (post-traumatic stress disorder) Polysubstance (including opioids) dependence, daily use Social History Social History Household Members: Other Household Members Other:: homeless Housing: Homeless Do you presently have visiting nurse or other home services: No Unable to assess alcohol history related to: Unknown Alcohol intake: current Alcohol intake frequency: does not drink Comment: 1:1 sitter with pt Patient Tobacco Use Status: Current everyday Tobacco user Tobacco use type: Cigarette Cigarette Packs Per Day: 1 Cigarettes Per Day: 20.0 Years Smoked: 20 e-Cigarette/Vaping Use: Former Use Second Hand Smoke Exposure: Yes Substance Use Type: Heroin Advance Directives: No Advance Directives Information Provided: No service: No Current occupational status: unemployed Sexual orientation: Straight/Heterosexual Physical Exam ED Vital Signs: Vital Signs - 24 hr 07/19/23 21:05 Temperature 98.0 F Pulse Rate 101 H Respiratory Rate 16 Blood Pressure 107/72 Pulse Oximetry 98 Oxygen Delivery Method Room Air BMI result Body Mass Index 28.8 Const General: healthy appearing, comfortable, no acute distress, alert and awake Nutritional Appearance: well nourished Orientation/consciousness: patient oriented x3 HENMT Head: Yes normocephalic and Yes atraumatic Eyes Eyelids: Yes eyelids normal Conjunctivae: conjunctivae normal Sclerae: sclerae normal Corneas: corneas normal Pupils: Equal, round and reactive pupils present EOM: EOMs intact bilaterally Neck Neck: Yes full ROM Resp Effort & Inspection: normal respiratory effort, able to speak in complete sentences and not labored Skin General skin exam: elasticity normal Neuro General: patient oriented x3 Cranial nerves: Yes Equal, round and reactive pupils present and Yes Bilaterally intact EOM present Cognition (Neuro): normal cognition Extrem Other: Moving all extremities well without any obvious deformities Medications Administered Discontinued Medications Generic Name Dose Route Start Last Admin Trade Name Freq PRN Reason Stop Dose Admin Lorazepam 2 mg 07/19/23 23:31 07/19/23 23:35 Lorazepam 1 Mg Tablet PO 07/19/23 23:32 2 mg ONCE ONE Administration Medical Decision Making Medical Decision Making [facility] Narrative: 32-year-old male presents for evaluation of suicidal ideation after reported temp was cocaine injection. The patient is awake, and oriented he reports feeling weak overall but denies any specific pains. I added on a troponin, EKG and CPK due to the reported cocaine abuse. His CPK came elevated to over 4000. He does have elevated BUN to 30 with a creatinine is normal at 1.02. We are still awaiting UA. Still awaiting tox screen to assess for core ingestion. Plan for IV fluids to address the rhabdomyolysis Differential Diagnosis Differential Diagnoses: The differential diagnosis associated with the presentation includes Substance abuse Suicidal ideation Rhabdomyolysis Dehydration RONA Admission/Observation Consideration of admission/observation: Escalation of care including admission/observation considered Consider admission for rhabdomyolysis Lab Data [facility] Lab Attestation statement: I reviewed the patient's lab results. Patient has anemia which is slightly improved when compared to his baseline. This may be due to some degree of dehydration. His BUN is elevated to 30 with a normal creatinine 1.02 with a CPK elevated over 4000. 07/19/23 21:47 07/19/23 21:47 Labs: Lab Results 07/19/23 07/19/23 Range/Units 21:46 21:47 WBC 9.0 (4.8-10.8) X10*3/uL RBC 4.49 L (4.60-5.80) X10*6/uL Hgb 12.4 L (14.0-18.0) g/dl Hct 37.5 L (42.0-52.0) % MCV 83.5 (80.0-98.0) fL MCH 27.6 (27.0-33.0) pg MCHC 33.1 (31.0-36.0) g/dl RDW 14.0 (11.0-16.0) % Plt Count 235 (160-400) X10*3/uL MPV 10.9 (9.4-12.4) fL Immature Gran % (Auto) 0.3 (0.0-0.4) % Neut % (Auto) 73.5 H (45-73) % Lymph % (Auto) 16.5 L (20-40) % [place] % (Auto) 9.1 (2-11) % Eos % (Auto) 0.4 (0-4) % Baso % (Auto) 0.2 (0-2) % Lymph # (Auto) 1.5 (1.2-4.9) X10*3/uL [place] # (Auto) 0.8 (0.1-1.2) X10*3/uL Eos # (Auto) 0.0 (0.0-0.4) X10*3/uL Baso # (Auto) 0.0 (0.0-0.2) X10*3/uL Abs Immat Gran (auto) 0.03 (0.00-0.03) X10*3/uL Absolute Neuts (auto) 6.6 (2.0-8.3) x10*3/uL Absolute Nucleated RBC 0.000 (0.0-0.012) X10*3/uL Nucleated RBC % (auto) 0.0 (0.0-0.2) /100WBC Sodium 143 (135-145) mmol/L Potassium 4.1 (3.3-5.1) mmol/L Chloride 102 (96-108) mmol/L Carbon Dioxide 27 (22-29) mmol/L Anion Gap 18 (12-20) BUN 30 H (9-16) mg/dL Creatinine 1.02 (0.5-1.4) mg/dL Estim Creat Clear Calc 118.0 Estimated GFR > 60 Random Glucose 105 (60-115) mg/dL Calcium 10.3 H D (8.4-10.2) mg/dL Total Bilirubin 0.5 (0.0-1.0) mg/dL AST 72 H (5-37) U/L ALT 24 (0-40) U/L Alkaline Phosphatase 78 (39-117) U/L Total Creatine Kinase 4081 H (38-174) U/L Total Protein 8.5 H (6.5-8.0) g/dL Albumin 5.0 (3.5-5.0) g/dL Salicylates < 5.0 L (15-30) mg/dL Acetaminophen < 3 (<30) mcg/mL Ethyl Alcohol < 10 mg/dL COVID-19 (JAMIE) Negative (Negative) COVID-19 Clin Com See Note Discharge Plan Discharge Clinical Impression: Cocaine use disorder, moderate, dependence, Rhabdomyolysis, Suicidal ideation Patient Disposition: Admitted As Inpatient Prescriptions: No Action methadone 10 mg/mL Concentrate 195 mg PO DAILY gemfibrozil 600 mg Tablet 600 mg PO BIDAC Qty: 28 0RF aripiprazole 10 mg Tablet 10 mg PO DAILY Qty: 30 0RF clonidine HCl 0.1 mg tablet 0.2 mg PO BID PRN (Reason: Anxiety) Qty: 60 0RF gabapentin 600 mg tablet 600 mg PO BID@0900,1500 Qty: 60 0RF paroxetine HCl 10 mg tablet 10 mg PO DAILY Qty: 30 0RF Rx Instructions: tdd = 50 mg nicotine (polacrilex) 2 mg gum 4 mg PO Q1H PRN (Reason: Smoking Cessation) Qty: 60 0RF gabapentin 400 mg capsule 800 mg PO BEDTIME Qty: 60 0RF hydroxyzine pamoate 50 mg capsule 100 mg PO BID PRN (Reason: Anxiety) Qty: 60 0RF melatonin 3 mg tablet 9 mg PO BEDTIME Qty: 60 0RF nicotine 21 mg/24 hr patch 24 hour 1 patch topical DAILY Qty: 30 0RF docusate sodium 100 mg Capsule 100 mg PO BEDTIME PRN (Reason: Constipation) 30 Days Qty: 30 0RF paroxetine HCl 40 mg tablet 40 mg PO DAILY Qty: 30 0RF Rx Instructions: tdd = 50 mg prazosin 2 mg capsule 4 mg PO BEDTIME Qty: 60 0RF naproxen 500 mg tablet 500 mg PO BID PRN (Reason: Headache) Qty: 30 0RF
[2023-07-19 23:50] VITALS: BP 120/63; PULSE 74; RESP 17; TEMP 36.6; O2SAT 97
[2023-07-19 23:50] LABS: Troponin-I High Sensitivity 3.8 ng/L (<3.5-35.0)
[2023-07-19] MEDS: 0.9 % Sodium Chloride 1,000 ML 999 ML IV ×2 (23:59)
--- NOTE | 2023-07-20 | PC.NURSE ---
pt relocated to 6h while awaiting admission. he remains calm and cooperative. iv line established and ivf infusing without s/s of complications. continued observation continues with patient observe close by
--- NOTE | 2023-07-20 01:00 | PC.NURSE ---
This va underwriter assumed care of this Pt at 0100. Pt A&Ox3, reports 10 headache. Pt reports he is a daily one pint of vodka drinker, last drink yesterday with hx of withdrawal, denies seizures, CIWA score 9, provider Liban Doherty made aware. Pt reports still feeling same thought of SI with plan to OD, reports feeling safe while here. 1:1 sitter at bedside.
[2023-07-20] MEDS: diazePAM 10 MG/2 ML CARTRIDGE 5 MG IVPUSH (01:52)
[2023-07-20] MEDS: 0.9 % Sodium Chloride 1,000 ML 150 ML IVCONT ×3 (01:57→16:31)
--- NOTE | 2023-07-20 02:10 | PC.NURSE ---
Med rec done, pt able to verbalize home meds.
--- NOTE | 2023-07-20 02:26 | P.HPHOSP_ITS ---
History of Present Illness Date of Service: 07/20/23 Attending physician on admission: Trenton Braden Chief Complaint: Suicide attempt Jovany Graves is a 32 years old man with past medical history significant for mood disorder and PTSD presents to the emergency department after he attempted to commit suicide injecting 200 dollars worth of cocaine. He injected heroin as well. He stated feeling depressed and wanting to . He was recently discharged from and inpatient psychiatric unit but he did not fill out his prescriptions. He did report some palpitation and feeling quite anxious. He did not report any headache, chest pain, shortness on breath or dizziness. He did not report any acute gastrointestinal or genitourinary symptoms. In the ED, he was found to have stable vital signs except for minimal tachycardia. Basic blood workup is remarkable for markedly elevated total CK, 4081. Creatinine is normal. ED tx: NS 2 L bolus, Ativan 2 mg PO X1. Review of Systems 2 Review of Systems: All 12 systems were reviewed and normal except as noted in HPI. [facility] Medical History Mood disorder PTSD (post-traumatic stress disorder) Polysubstance (including opioids) dependence, daily use Social History Household Members: Other Household Members Other:: homeless Housing: Homeless Do you presently have visiting nurse or other home services: No Unable to assess alcohol history related to: Unknown Alcohol intake: current Alcohol intake frequency: 3 or more drinks per day Alcohol type: hard liquor Comment: 1:1 sitter with pt Patient Tobacco Use Status: Current everyday Tobacco user Tobacco use type: Cigarette Cigarette Packs Per Day: 1 Cigarettes Per Day: 20.0 Years Smoked: 20 Smoked in Last 30 Days: Yes e-Cigarette/Vaping Use: Former Use Second Hand Smoke Exposure: Yes Use of substances other than those prescribed or required for medical reasons: Yes Substance Use Type: Crack/Cocaine, Heroin and IV Drugs Advance Directives: No Advance Directives Information Provided: No service: No Current occupational status: unemployed Sexual orientation: Straight/Heterosexual Meds Allergies Allergy/AdvReac Type Severity Reaction Status Date / Time amoxicillin Allergy Hives Verified 07/20/23 01:52 Penicillins [PCN] Allergy Hives Verified 07/20/23 01:52 seafood Allergy Difficulty Verified 07/20/23 01:52 Breathing Active Medications: Current Medications Enoxaparin Sodium (Enoxaparin Sodium 40 Mg/0.4 Ml Syringe) 40 mg SUBCUT Q24H [facility] Sodium Chloride (Ns) 1,000 mls @ 150 mls/hr IVCONT .Q6H40M [facility] Last Admin: 07/20/23 01:57 Dose: 150 mls/hr Lorazepam (Lorazepam 1 Mg Tablet) 1 mg PO Q4H PRN PRN Reason: anxiety Sodium Chloride (0.9 % Sodium Chloride Flush 3 Ml Syringe) 3 ml IVFLUSH QSHIFT [facility] Home Medications Medication Instructions Recorded Confirmed Last Taken Type methadone 10 mg/mL oral concentrate 195 mg PO DAILY 12/01/22 07/19/23 07/18/23 09:00 History quetiapine 100 mg tablet 100 mg PO BEDTIME 07/20/23 07/20/23 Unknown History Physical Exam 2 Vital Signs and Narrative: Vital Signs: Last Vital Signs Temp 97.9 F 07/19/23 23:50 Pulse 74 07/19/23 23:50 Resp 17 07/19/23 23:50 BP 120/63 07/19/23 23:50 Pulse Ox 97 07/19/23 23:50 O2 Del Method Room Air 07/19/23 23:50 BMI result Body Mass Index 28.8 Constitutional - Awake and Alert. Looks quite anxious. Cooperative. Afebrile. HEENT - Normocephalic. Atraumatic head. No scleral icterus. Heart - Tachycardiac. No murmur. Lungs - Normal lung expansion, Normal respiratory effort, No respiratory distress, CTA bilaterally Gastrointestinal - NT / ND; +BS; No rebound or guarding Extremities - no calf tenderness bilaterally, no swelling Musculoskeletal - Normal inspection, normal ROM Skin - Warm/Dry Neurological - Alert & oriented x3. No focal weakness grossly noted. Normal speech. Psychological - Very anxious. No agitation. Results Labs 07/19/23 21:47 07/19/23 21:47 Labs: Laboratory Results - last 24 hr 07/19/23 07/19/23 21:46 21:47 MCV 83.5 MCH 27.6 MCHC 33.1 RDW 14.0 Plt Count 235 MPV 10.9 Immature Gran % (Auto) 0.3 Neut % (Auto) 73.5 H Lymph % (Auto) 16.5 L [place] % (Auto) 9.1 Eos % (Auto) 0.4 Baso % (Auto) 0.2 Lymph # (Auto) 1.5 [place] # (Auto) 0.8 Eos # (Auto) 0.0 Baso # (Auto) 0.0 Abs Immat Gran (auto) 0.03 Absolute Neuts (auto) 6.6 Absolute Nucleated RBC 0.000 Nucleated RBC % (auto) 0.0 Anion Gap 18 Estim Creat Clear Calc 118.0 Estimated GFR > 60 Random Glucose 105 Calcium 10.3 H D Total Bilirubin 0.5 AST 72 H ALT 24 Alkaline Phosphatase 78 Total Creatine Kinase 4081 H Total Protein 8.5 H Albumin 5.0 Salicylates < 5.0 L Acetaminophen < 3 Ethyl Alcohol < 10 COVID-19 (JAMIE) Negative COVID-19 Clin Com See Note Assessment and Plan (1) Rhabdomyolysis: Qualifiers: Rhabdomyolysis type: traumatic Encounter type: initial encounter Qualified Code(s): T79.6XXA - Traumatic ischemia of muscle, initial encounter Status: Acute (2) PTSD (post-traumatic stress disorder): Status: Acute (3) Mood disorder: Status: Acute (4) Suicidal ideation: Status: Acute (5) Cocaine overdose: Qualifiers: Encounter type: initial encounter Injury intent: intentional self-harm Qualified Code(s): T40.5X2A - Poisoning by cocaine, intentional self-harm, initial encounter Status: Acute (6) Opioid use disorder, moderate, dependence: Status: Acute Plan Jovany Graves is a 32 years old man admitted with: * Rhabdomyolysis secondary to cocaine overdose. Admit to hospitalist service. Continue IV fluids. Continue to monitor total CK. * Suicide attempt. Section 12. Observation one-to-one. Psychiatric consult. SW and CM evaluation. * Cocaine overdose + heroin use. Continue treatement with benzodiazepines as needed. Continue methadone after dose confirmation. * Mood disorder and PTSD. Will order home medications: Paroxetine, Seroquel, gabapentin, prazosin, hydroxyzine as needed. * Tobacco smoking. Nicotine gums as needed. * DVT prophylaxis: Lovenox subcut Code status: Full Patient will need hospitalization for at least 2 midnights for rhabdomyolysis treatment with IV fluids and close monitoring of renal function + total CK level. He will also need psychiatric, SW and CM evaluation. Quality Stroke Does the patient have a stroke diagnosis?: No VTE Prior VTE?: No VTE Risk Level:: Medical - moderate - high VTE Device Contraindication: Treatment Not Indicated VTE Drug Contraindication: N/A - Med Ordered
[2023-07-20 05:21] LABS: MANUAL DIFF FLAG NO
[2023-07-20 05:26] LABS: Basophils Percent Auto 0.4 % (0-2); Eosinophils Absolute Auto 0.2 X10*3/uL (0.0-0.4); Eosinophils Percent Auto 3.3 % (0-4); Hematocrit 32.8 % (42.0-52.0); Hemoglobin 10.6 g/dl (14.0-18.0); Imm Gran Abs Auto 0.01 X10*3/uL (0.00-0.03); Imm Gran Pct Auto 0.1 % (0.0-0.4); Lymphocytes Absolute Auto 2.8 X10*3/uL (1.2-4.9); Lymphocytes Percent Auto 38.1 % (20-40); Mean Corpuscular HGB Conc 32.3 g/dl (31.0-36.0); Mean Corpuscular Hemoglobin 27.5 pg (27.0-33.0); Mean Corpuscular Volume 85.2 fL (80.0-98.0); Monocytes Percent Auto 12.9 % (2-11); Neutrophils Absolute Auto 3.3 x10*3/uL (2.0-8.3); Neutrophils Percent Auto 45.2 % (45-73); Platelet Count 177 X10*3/uL (160-400); Red Blood Count 3.85 X10*6/uL (4.60-5.80); Red Cell Distribution Width 14.3 % (11.0-16.0); White Blood Count 7.4 X10*3/uL (4.8-10.8)
[2023-07-20 05:52] LABS: Alanine Aminotransferase 19 U/L (0-40); Albumin Level 3.8 g/dL (3.5-5.0); Alkaline Phosphatase 62 U/L (39-117); Anion Gap 13 (12-20); Aspartate Amino Transferase 52 U/L (5-37); Bilirubin Total 0.4 mg/dL (0.0-1.0); Blood Urea Nitrogen 28 mg/dL (9-16); Calcium 8.8 mg/dL (8.4-10.2); Carbon Dioxide 24 mmol/L (22-29); Chloride 108 mmol/L (96-108); Creatinine Clr Calc Pharmacy 150.4; Estimated Glomerular Filt Rate > 60; Glucose Random 95 mg/dL (60-115); Potassium 3.9 mmol/L (3.3-5.1); Sodium 141 mmol/L (135-145); Total Protein 6.5 g/dL (6.5-8.0)
[2023-07-20 06:12] LABS: Appearance Urine Clear; Color Urine Yellow; Glucose Urine UA Negative (Negative); Leukocyte Esterase Urine Negative (Negative); Nitrite Urine Negative (Negative); Specific Gravity - Urine >= 1.030 (1.005-1.025); Urine Blood Negative (Negative); Urine Ketones Negative (Negative); Urine Protein Trace mg/dL (Neg-Trace)
--- NOTE | 2023-07-20 06:14 | HE.PHANOTE ---
RE: METHADONE VERIFICATION Last dose of methadone 195 mg was given on 07/18/23 at [facility] in [place] before discharge (per fax from [facility]).
[2023-07-20 06:17] LABS: Bacteria Urine None Seen (None Seen); Hyaline Casts Urine 0-2 /LPF (0-2); RBC Urine 0-2 /HPF (0-2); Squamous Epithelial Cell Urine 0-2 /HPF (0-2); WBC Urine 0-5 /HPF (0-5)
[2023-07-20 06:20] LABS: Amphetamine Screen Urine Not Detected (Not Detect); Barbiturates, Urine Not Detected (Not Detect); Benzodiazepines Screen Urine POSITIVE (Not Detect); Cannabinoid Screen Urine POSITIVE (Not Detect); Cocaine Screen Urine POSITIVE (Not Detect); Fentanyl, urine POSITIVE (Not Detect); Opiate Screen Urine POSITIVE (Not Detect); Phencyclidine Screen Urine Not Detected (Not Detect)
[2023-07-20] MEDS: 0.9 % Sodium Chloride Flush 3 ML SYRINGE IVFLUSH ×2 (07:33→16:31)
[2023-07-20 07:34] VITALS: BP 98/43; PULSE 75; RESP 16; TEMP 36.6; O2SAT 97
--- NOTE | 2023-07-20 07:35 | PC.NURSE ---
this RN resumed care of pt at this time. pt moved from hallway into ED8 so pt can be placed on groundwater monitoring technician. vss and up to date. nsr on the groundwater monitoring technician. pt denies any pain at this time. pt still verbalizing thoughts of SI does not have a specific plan at this time. states he is feeling depressed. denies HI. pt sitting upright eating breakfast. no sob/wob noted. respirations even adn unlabored. 1:1 sitter present. call bowen placed within reach.
[2023-07-20] MEDS: PARoxetine HCL 40 MG TABLET PO (08:18)
[2023-07-20] MEDS: Gabapentin 600 MG TABLET PO ×2 (08:18→15:34)
[2023-07-20] MEDS: methADONE HCl 20 MG/2 ML ORAL.CONC 195 MG PO (08:18)
[2023-07-20] MEDS: Enoxaparin Sodium 40 MG/0.4 ML SYRINGE SUBCUT (08:19)
--- NOTE | 2023-07-20 08:22 | PC.NURSE ---
pt medicated per provider order. pt continues to rest in no apparent distress. 1:1 remains present.
--- NOTE | 2023-07-20 09:23 | PC.NURSE ---
IVF administered per provider order. updated CIWA at this time = 8. slight tremor/sweaty palms noted. pt verbalizes feeling mildly anxious w/ headache.
--- NOTE | 2023-07-20 10:13 | PHA.MEDREC ---
Pharmacy Consult ? Medication Reconciliation Pharmacy has completed the medication reconciliation with pt, pt was able to recall and verbalize all medications and frequencies, unsure of some doses. Also used list from pt's pharmacy, all directions matched and doses confirmed.
[2023-07-20 11:46] VITALS: BP 102/54; PULSE 70; RESP 14; TEMP 36.5; O2SAT 96
[2023-07-20] MEDS: Folic Acid 1 MG TABLET PO (12:30)
[2023-07-20] MEDS: PHENobarbitaL sodium 130 MG/ML IM ONCE 234 MG IM (12:30)
[2023-07-20] MEDS: Thiamine HCL 100 MG TABLET PO (12:30)
--- NOTE | 2023-07-20 12:31 | PC.NURSE ---
medication administered per provider order. pt continues to rest in no apparent distress at this time. respirations remain even and unlabored. 1:1 sitter present.
[2023-07-20] MEDS: PHENobarbitaL sodium 130 MG/ML VIAL IM Q3Hx2 175 MG IM ×2 (15:34→18:15)
--- NOTE | 2023-07-20 15:38 | PC.NURSE ---
pt medicated per provider order. CIWA updated = 8 at this time. pt still verbalizing thoughts of SI. states his plan would be to overdose on any substance available to him. denies HI. respirations remain even and unlabored. respirations remain even and unlabored. 1:1 sitter present. call bowen placed within reach.
--- NOTE | 2023-07-20 15:49 | PC.NURSE ---
admission worksheet complete. transport notified at this time.
--- NOTE | 2023-07-20 16:08 | MHC.CM.PN ---
Pt is homeless, he does not have a PCP, when asked if he would like us to set this up for him, he said that he would. HCP discussed, he declines to complete one. CM will follow and assist with DC plan.
--- NOTE | 2023-07-20 16:42 | HO.PM.IMPN ---
Subjective Subjective Date of Service: 07/20/23 Interval History: Drug use and rhabdomyolysis Review of Systems Patient has body soreness, anxious, mild tremors Physical Exam Vital Signs: Vital Signs: Last Vital Signs Temp 97.7 F 07/20/23 11:46 Pulse 70 07/20/23 11:46 Resp 14 07/20/23 11:46 BP 102/54 L 07/20/23 11:46 Pulse Ox 96 07/20/23 11:46 O2 Del Method Room Air 07/20/23 11:46 BMI result Body Mass Index 28.8 Appearance: Alert.? Oriented X3.? not in distress.?anxious and tremer cvs: rrr, [id number] , no murmur res: clear to auscultation ,no rhonchii or wheezing abd: no rebound or guarding ,nt, bs present. ext pulses present , no cyanosis . neuro: axo3 , nonfocal. Objective Data Active Medications Clonidine HCl (Clonidine Hcl 0.2 Mg Tablet) 0.2 mg PO BID PRN; Protocol PRN Reason: Anxiety Docusate Sodium (Docusate Sodium 100 Mg Capsule) 100 mg PO BEDTIME PRN PRN Reason: Constipation Enoxaparin Sodium (Enoxaparin Sodium 40 Mg/0.4 Ml Syringe) 40 mg SUBCUT Q24H [facility] Last Admin: 07/20/23 08:19 Dose: 40 mg Documented By: FLORENCE Folic Acid (Folic Acid 1 Mg Tablet) 1 mg PO DAILY [facility] Last Admin: 07/20/23 12:30 Dose: 1 mg Documented By: FLORENCE Gabapentin (Gabapentin 400 Mg Capsule) 800 mg PO BEDTIME [facility] Gabapentin (Gabapentin 600 Mg Tablet) 600 mg PO BID@0900,1500 [facility] Last Admin: 07/20/23 15:34 Dose: 600 mg Documented By: FLORENCE Hydroxyzine HCl (Hydroxyzine Hcl 50 Mg Tablet) 100 mg PO BID PRN PRN Reason: Anxiety Sodium Chloride (Ns) 1,000 mls @ 150 mls/hr IVCONT .Q6H40M [facility] Last Admin: 07/20/23 16:31 Dose: 150 mls/hr Documented By: FLORENCE Lorazepam (Lorazepam 1 Mg Tablet) 1 mg PO Q4H PRN PRN Reason: anxiety Methadone HCl (Methadone Hcl 20 Mg/2 Ml Oral.Conc) 195 mg PO DAILY [facility] Last Admin: 07/20/23 08:18 Dose: 195 mg Documented By: FLORENCE Nicotine Polacrilex (Nicotine Polacrilex 2 Mg Gum) 2 mg BUCCAL ONCE PRN PRN Reason: Nicotine Cravings Paroxetine HCl (Paroxetine Hcl 40 Mg Tablet) 40 mg PO DAILY [facility] Last Admin: 07/20/23 08:18 Dose: 40 mg Documented By: FLORENCE Pharmacy Consult (Consult Rx Etoh Phenob Im/Po) 1 each MISCELLANE ONCE PRN; Protocol PRN Reason: Consult order Phenobarbital (Phenobarbital 15 Mg Tablet) 45 mg PO BID [facility]; Protocol Stop: 07/22/23 09:01 Phenobarbital (Phenobarbital 30 Mg Tablet) 30 mg PO BID [facility]; Protocol Stop: 07/24/23 09:01 Phenobarbital (Phenobarbital 30 Mg Tablet) 30 mg PO Q24H [facility]; Protocol Stop: 07/25/23 21:01 Phenobarbital Sodium (Phenobarbital Sodium 130 Mg/Ml Vial Im Q3hx2) 175 mg IM Q3H [facility]; Protocol Stop: 07/20/23 18:01 Last Admin: 07/20/23 15:34 Dose: 175 mg Documented By: FLORENCE Prazosin HCl (Prazosin Hcl 1 Mg Capsule) 4 mg PO BEDTIME [facility]; Protocol Quetiapine Fumarate (Quetiapine Fumarate 100 Mg Tablet) 100 mg PO BEDTIME [facility] Sodium Chloride (0.9 % Sodium Chloride Flush 3 Ml Syringe) 3 ml IVFLUSH QSHIFT [facility] Last Admin: 07/20/23 16:31 Dose: 3 ml Documented By: FLORENCE Thiamine HCl (Thiamine Hcl 100 Mg Tablet) 100 mg PO DAILY [facility] Last Admin: 07/20/23 12:30 Dose: 100 mg Documented By: FLORENCE Labs 07/20/23 05:16 07/20/23 05:16 Labs: Laboratory Results - last 24 hr 07/19/23 07/19/23 07/20/23 21:46 21:47 05:16 MCV 83.5 85.2 MCH 27.6 27.5 MCHC 33.1 32.3 RDW 14.0 14.3 Plt Count 235 177 MPV 10.9 11.0 Immature Gran % (Auto) 0.3 0.1 Neut % (Auto) 73.5 H 45.2 Lymph % (Auto) 16.5 L 38.1 [place] % (Auto) 9.1 12.9 H Eos % (Auto) 0.4 3.3 Baso % (Auto) 0.2 0.4 Lymph # (Auto) 1.5 2.8 [place] # (Auto) 0.8 1.0 Eos # (Auto) 0.0 0.2 Baso # (Auto) 0.0 0.0 Abs Immat Gran (auto) 0.03 0.01 Absolute Neuts (auto) 6.6 3.3 Absolute Nucleated RBC 0.000 0.000 Nucleated RBC % (auto) 0.0 0.0 Anion Gap 18 13 Estim Creat Clear Calc 118.0 150.4 Estimated GFR > 60 > 60 Random Glucose 105 95 Calcium 10.3 H D 8.8 D Total Bilirubin 0.5 0.4 AST 72 H 52 H ALT 24 19 Alkaline Phosphatase 78 62 Total Creatine Kinase 4081 H 2585 H Total Protein 8.5 H 6.5 Albumin 5.0 3.8 Urine Color Urine Appearance Urine pH Ur Specific Scenic Urine Protein Urine Glucose (UA) Urine Ketones Urine Blood Urine Nitrite Ur Leukocyte Esterase Urine RBC Urine WBC Ur Squamous Epith Cells Urine Bacteria Hyaline Casts Salicylates < 5.0 L Urine Opiates Screen Urine Fentanyl Screen Acetaminophen < 3 Ur Barbiturates Screen Ur Phencyclidine Scrn Ur Amphetamines Screen U Benzodiazepines Scrn Urine Cocaine Screen U Marijuana (THC) Screen Ethyl Alcohol < 10 COVID-19 (JAMIE) Negative COVID-19 Clin Com See Note 07/20/23 06:05 MCV MCH MCHC RDW Plt Count MPV Immature Gran % (Auto) Neut % (Auto) Lymph % (Auto) [place] % (Auto) Eos % (Auto) Baso % (Auto) Lymph # (Auto) [place] # (Auto) Eos # (Auto) Baso # (Auto) Abs Immat Gran (auto) Absolute Neuts (auto) Absolute Nucleated RBC Nucleated RBC % (auto) Anion Gap Estim Creat Clear Calc Estimated GFR Random Glucose Calcium Total Bilirubin AST ALT Alkaline Phosphatase Total Creatine Kinase Total Protein Albumin Urine Color Yellow Urine Appearance Clear Urine pH 6.0 Ur Specific [place] >= 1.030 H Urine Protein Trace Urine Glucose (UA) Negative Urine Ketones Negative Urine Blood Negative Urine Nitrite Negative Ur Leukocyte Esterase Negative Urine RBC 0-2 Urine WBC 0-5 Ur Squamous Epith Cells 0-2 Urine Bacteria None Seen Hyaline Casts 0-2 Salicylates Urine Opiates Screen POSITIVE H Urine Fentanyl Screen POSITIVE H Acetaminophen Ur Barbiturates Screen Not Detected Ur Phencyclidine Scrn Not Detected Ur Amphetamines Screen Not Detected U Benzodiazepines Scrn POSITIVE H Urine Cocaine Screen POSITIVE H U Marijuana (THC) Screen POSITIVE H Ethyl Alcohol COVID-19 (JAMIE) COVID-19 Clin Com Assessment and Plan (1) Cocaine overdose: Status: Acute (2) Suicidal ideation: Status: Acute (3) Rhabdomyolysis: Status: Acute Plan 32 years old man admitted with: Rhabdomyolysis secondary to cocaine overdose. Admit to hospitalist service. Continue IV fluids. Continue to monitor total CK. Suicide attempt. Section 12. Observation one-to-one. Psychiatric consult. SW and CM evaluation. Cocaine overdose + heroin use. Continue treatement with benzodiazepines as needed. Continue methadone addiction consult Mood disorder and PTSD. Will order home medications: Paroxetine, Seroquel, gabapentin, prazosin, hydroxyzine as needed. Tobacco smoking. Nicotine gums as needed. DVT prophylaxis: Lovenox subcut Ongoing hospitalization need: Rhabdomyolysis secondary to cocaine use-need IV fluid, renal function and electrolyte monitoring in addition patient will need psych follow-up for further management of suicidal attempt. Quality Stroke Does the patient have a stroke diagnosis?: No VTE Prior VTE?: No VTE Risk Level:: Medical - moderate - high VTE Device Contraindication: Treatment Not Indicated VTE Drug Contraindication: N/A - Med Ordered
[2023-07-20 17:05] VITALS: BP 108/61; PULSE 65; RESP 18; TEMP 36.3; O2SAT 97
[2023-07-20] MEDS: Nicotine Polacrilex 2 MG GUM BUCCAL ×2 (17:24→20:26)
[2023-07-20] MEDS: LORazepam 1 MG TABLET PO (17:24)
[2023-07-20 19:25] VITALS: BP 103/58; PULSE 75; RESP 14; TEMP 37.1; O2SAT 97
[2023-07-20] MEDS: hydrOXYzine HCL 50 MG TABLET 100 MG PO (19:30)
[2023-07-20] MEDS: PHENobarbitaL 15 MG TABLET 45 MG PO (20:26)
[2023-07-20] MEDS: Prazosin HCL 1 MG CAPSULE 4 MG PO (20:27)
[2023-07-20] MEDS: Gabapentin 400 MG CAPSULE 800 MG PO (20:27)
[2023-07-20] MEDS: QUEtiapine Fumarate 100 MG TABLET PO (20:27)
[2023-07-20 23:09] VITALS: BP 106/60; PULSE 72; RESP 11; TEMP 36.7; O2SAT 96
[2023-07-21] MEDS: 0.9 % Sodium Chloride 1,000 ML 150 ML IVCONT ×2 (00:20→06:42)
[2023-07-21 03:48] VITALS: BP 102/62; PULSE 87; RESP 20; TEMP 36.9; O2SAT 94
[2023-07-21 07:33] LABS: Anion Gap 9 (12-20); Blood Urea Nitrogen 20 mg/dL (9-16); Calcium 8.4 mg/dL (8.4-10.2); Carbon Dioxide 26 mmol/L (22-29); Chloride 108 mmol/L (96-108); Creatinine Clr Calc Pharmacy 159.3; Estimated Glomerular Filt Rate > 60; Glucose Random 117 mg/dL (60-115); Potassium 4.1 mmol/L (3.3-5.1); Sodium 139 mmol/L (135-145)
[2023-07-21] MEDS: methADONE HCl 20 MG/2 ML ORAL.CONC 195 MG PO (07:46)
[2023-07-21 07:47] VITALS: BP 110/61; PULSE 80; RESP 20; TEMP 36.8; O2SAT 96
[2023-07-21] MEDS: Gabapentin 600 MG TABLET PO (07:47)
[2023-07-21] MEDS: PARoxetine HCL 40 MG TABLET PO (07:47)
[2023-07-21] MEDS: PHENobarbitaL 15 MG TABLET 45 MG PO (07:47)
[2023-07-21] MEDS: Folic Acid 1 MG TABLET PO (07:48)
[2023-07-21] MEDS: Thiamine HCL 100 MG TABLET PO (07:48)
[2023-07-21] MEDS: Enoxaparin Sodium 40 MG/0.4 ML SYRINGE SUBCUT (07:50)
[2023-07-21] MEDS: 0.9 % Sodium Chloride Flush 3 ML SYRINGE IVFLUSH (07:51)
[2023-07-21] MEDS: Nicotine Polacrilex 2 MG GUM BUCCAL ×2 (07:57→11:14)
--- NOTE | 2023-07-21 10:47 | P.DS_ITS ---
DS: Providers Provider Date of Service: 07/21/23 Date of admission: 07/20/23 01:29 Date of discharge: 07/21/23 Primary care physician: Unknown Physician Consults: 07/20/23 02:25 Consult to Psychiatry Routine Consulting Provider: Psych Covering Reason for consultation: Suicide attempt Has provider been notified: No 07/20/23 11:22 Addiction Medicine Routine Consulting Provider: Addiction Covering Reason for consultation: Cocaine ,alcohol use Has provider been notified: No 07/20/23 17:09 Consult to Care Team Routine Comment: Reason for consultation: etoh/substance abuse/SI Attending physician on discharge: Aurora Winslow Discharging clinician: Aurora Winslow DS: Diagnosis Discharge Diagnosis (1) Cocaine overdose: Status: Acute (2) Suicidal ideation: Status: Acute (3) Rhabdomyolysis: Status: Acute DS: Summary Hospital Course Hospital Course: 32 years old man with past medical history significant for mood disorder and PTSD presents to the emergency department after he attempted to commit suicide injecting 200 dollars worth of cocaine. He injected heroin as well. He stated feeling depressed and wanting to . He was recently discharged from and inpatient psychiatric unit but he did not fill out his prescriptions. He did report some palpitation and feeling quite anxious. He did not report any headache, chest pain, shortness on breath or dizziness. He did not report any acute gastrointestinal or genitourinary symptoms. In the ED, he was found to have stable vital signs except for minimal tachycardia. Basic blood workup is remarkable for markedly elevated total CK, 4081. Creatinine is normal. ED tx: NS 2 L bolus, Ativan 2 mg PO X1. Hospital course: Patient was admitted to the hospital for rhabdomyolysis secondary to cocaine overdose: Patient was hydrated and rhabdomyolysis seems to be improving significantly, in addition patient was sectioned 12 initially for for possible suicidal attempt with cocaine use.Patient is feeling much better now, rhabdomyolysis seems to be improved significantly, patient was encouraged for hydration and p.o. intake. patient was seen by care team and cleared for discharge. In addition patient also was treated for alcohol withdrawals with phenobarb protocol. Patient was strongly advised to abstain from substance use including cocaine and alcohol use. He understand and in agreement with the above plan, time spent 50 minute. Time Attestation Discharge coordination time: Greater than 30 minutes Quality: Safe Use of Opioids Does Pt have an Active Cancer Diagnosis on the Problem List?: No Quality: Stroke Does the patient have a stroke diagnosis?: No Physical Exam Vital Signs: Vital Signs: Last Vital Signs Temp 98.3 F 07/21/23 07:47 Pulse 80 07/21/23 07:47 Resp 20 07/21/23 07:47 BP 110/61 07/21/23 07:47 Pulse Ox 96 07/21/23 07:47 O2 Del Method Room Air 07/21/23 07:47 BMI result Body Mass Index 30.0 Appearance: Alert.? Oriented X3.? cvs: [id number], [id number] , no murmur res: clear to auscultation ,no rhonchii or wheezing abd: no rebound or guarding ,nt, bs present. ext pulses present , no cyanosis. neuro: axo3 , nonfocal. DS: Data Data Completed and Pending Labs on day of discharge: Laboratory Results - last 24 hr 07/21/23 06:38 Sodium 139 Potassium 4.1 Chloride 108 Carbon Dioxide 26 Anion Gap 9 L BUN 20 H Creatinine 0.77 Estim Creat Clear Calc 159.3 Estimated GFR > 60 Random Glucose 117 H Calcium 8.4 Total Creatine Kinase 1278 H Discharge Plan Discharge Anticipated Discharge Date/Time: 07/21/23 10:30 Patient Disposition: Home, Self-Care Discharge Diagnosis: Cocaine use, rhabdomyolysis Referrals: Physician,Unknown J [Primary Care Provider] - 1 Week Discharge Medications: Continued quetiapine 100 mg tablet 100 mg PO BEDTIME baclofen 20 mg tablet 20 mg PO DAILY nicotine (polacrilex) 4 mg gum 4 mg PO Q3H PRN (Reason: cravings) Rx Instructions: while awake paroxetine HCl 30 mg tablet 60 mg PO DAILY clonidine HCl 0.1 mg tablet 0.1 mg PO Q4H PRN (Reason: Anxiety) hydroxyzine HCl 50 mg tablet 50 mg PO QID PRN (Reason: Anxiety) gabapentin 300 mg capsule 600 mg PO TID naproxen 500 mg tablet 500 mg PO DAILY PRN (Reason: Headache) methadone 10 mg/mL Concentrate 195 mg PO DAILY nicotine 21 mg/24 hr patch 24 hour 1 patch topical DAILY Qty: 30 0RF prazosin 2 mg capsule 4 mg PO BEDTIME Qty: 60 0RF Discharge Orders: Discharge Order (Routine); Ordered 07/21/23 Ordered By: Aurora Winslow Diet: Advance to usual diet Activity on Discharge: As tolerated Stand Alone Forms: Patient Portal Discharge page Care Plan Goals: Patient was admitted to the hospital for rhabdomyolysis secondary to cocaine overdose: Patient was hydrated and rhabdomyolysis seems to be improving significantly, in addition patient was sectioned 12 initially for for possible suicidal attempt with cocaine use.Patient is feeling much better now, rhabdomyolysis seems to be improved significantly, patient was encouraged for hydration and p.o. intake. patient was seen by care team and cleared for discharge. In addition patient also was treated for alcohol withdrawals with phenobarb pro tocol. Patient was strongly advised to abstain from substance use including cocaine and alcohol use. He understand and in agreement with the above plan, time spent 50 minute. Health Concerns: As above. Plan of Treatment: As above. Assessment: As above.
[2023-07-21] MEDS: hydrOXYzine HCL 50 MG TABLET 100 MG PO (11:13)
--- NOTE | 2023-07-21 11:30 | MHC.CARE ---
Patient is seen by t/w with CARE team, he denies SI/ HI, does not report or appear to be psychotic and is not wanting to be admitted to inpatient psychiatry. He requested resources which t/w provided. He is clear by CARE team, no need for inpatient psych at this time.
--- NOTE | 2023-07-21 11:45 | MHC.CM.PN ---
Pt is medically cleared for D/C back to [facility] in [place], self-care. Pt will be transported via bus.
--- NOTE | 2023-07-21 15:26 | MHC.RECOVRN ---
Met with pt in 460 after consult placed to Addiction Medicine for alcohol and cocaine use. Pt had presented to the ED reporting recent dc from inpatient behavioral health unit, noncompliance with medication, attempt to overdose with cocaine. Upon evaluation, pt admitted medically for rhabdomyolysis secondary to cocaine use. Pt medically cleared today, also seen by CARE Team and cleared, plan to discharge. Pt sitting in bed, awake, alert, easily engages in conversation. Does not appear to be in withdrawal or uncomfortable. Pt reports prior to presentation using cocaine, $300 between 3 people, IV. Pt reports typically using $20 daily. Pt reports recently using heroin/fentanyl due to not being able to get methadone dose, however, reports prior to that abstaining from opioids since 2016. Pt is currently on methadone, 195 mg daily x years. Pt reports alcohol use as a shot here and there. Denies daily use. Pt denies current withdrawal symptoms. Pt reports longest period in recovery was 6 years. Has been to many programs including [facility], [facility], [facility], [facility], and inpatient behavioral health programs. Pt reports desire to go back to sober living, reports he is on every waitlist. 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 Pt denies need for any resources or referrals at this time. Denies other questions or concerns for t/w.
== END 2023-07-21 13:35 | disposition home or self-care (01) | DRG 817 ==
LOC: HO.ED 23:55 → HO.EDOVER 07-20 04:04 → HO.IMC 07-20 15:32
PROVIDERS: Physician Assistant; Admitting Provider Internal Medicine; Emergency Provider Student in an Organized Health Care Education/Training Program; Visit Provider Internal Medicine
DX: T40.5X2A Poisoning by cocaine, intentional self-harm, initial encounter (principal); F11.20 Opioid dependence, uncomplicated; F39 Unspecified mood [affective] disorder; F14.20 Cocaine dependence, uncomplicated; T79.6XXA Traumatic ischemia of muscle, initial encounter; F17.210 Nicotine dependence, cigarettes, uncomplicated; F43.10 Post-traumatic stress disorder, unspecified; Z20.822 Contact with and (suspected) exposure to COVID-19; Z91.148 Patient's other noncompliance with medication regimen for other reason; Z59.02 Unsheltered homelessness; Z71.6 Tobacco abuse counseling; Z79.899 Other long term (current) drug therapy
CPT/HCPCS: 36415; 80048; 80053; 80143; 80179; 80307; 81001; 82550; 84484; 85025; 87635; 93005; 99285; J1650; J2560; J3360; S9485

== ENCOUNTER → 2023-07-19 22:03 | Outpatient (BNV) | payer OTHER, SELFPAY | PROVIDERS: Emergency Provider Student in an Organized Health Care Education/Training Program; Visit Provider Internal Medicine | DX: T40.5X2A Poisoning by cocaine, intentional self-harm, initial encounter (principal); R45.851 Suicidal ideations; T79.6XXA Traumatic ischemia of muscle, initial encounter; M62.82 Rhabdomyolysis | CPT/HCPCS: 99223; 99239; 99499 ==

== ENCOUNTER → 2023-07-19 22:55 | Outpatient (BNV) | payer OTHER, SELFPAY | PROVIDERS: Admitting Provider Internal Medicine; Emergency Provider Student in an Organized Health Care Education/Training Program; Visit Provider Internal Medicine | DX: I45.81 Long QT syndrome (principal) | CPT/HCPCS: 93010 ==

== ENCOUNTER 2023-08-17 11:46 | Emergency (ER) | payer OTHER, SELFPAY ==
[2023-08-17 12:06] VITALS: BP 154/86; PULSE 116; RESP 20; TEMP 37.7; O2SAT 96; BMI 2929.2
--- NOTE | 2023-08-17 12:13 | ED.ABDPAIN ---
HPI - Abdominal Pain General Chief Complaint: Abdominal Pain Stated Complaint: Abd pain Related Data Home Medications Medication Instructions Recorded Confirmed methadone 10 mg/mL oral concentrate 195 mg PO DAILY 12/01/22 07/20/23 baclofen 20 mg tablet 20 mg PO DAILY 07/20/23 07/20/23 clonidine HCl 0.1 mg tablet 0.1 mg PO Q4H PRN Anxiety 07/20/23 07/20/23 gabapentin 300 mg capsule 600 mg PO TID 07/20/23 07/20/23 hydroxyzine HCl 50 mg tablet 50 mg PO QID PRN Anxiety 07/20/23 07/20/23 naproxen 500 mg tablet 500 mg PO DAILY PRN Headache 07/20/23 07/20/23 nicotine (polacrilex) 4 mg gum 4 mg PO Q3H PRN cravings 07/20/23 07/20/23 paroxetine HCl 30 mg tablet 60 mg PO DAILY 07/20/23 07/20/23 quetiapine 100 mg tablet 100 mg PO BEDTIME 07/20/23 07/20/23 Previous Rx's Medication Instructions Recorded nicotine 21 mg/24 hr daily 1 patch topical DAILY #30 ea 12/06/22 transdermal patch prazosin 2 mg capsule 4 mg (2 x 2 mg) PO BEDTIME #60 caps 12/06/22 Allergies Allergy/AdvReac Type Severity Reaction Status Date / Time amoxicillin Allergy Hives Verified 08/17/23 12:10 Penicillins [PCN] Allergy Hives Verified 08/17/23 12:10 seafood Allergy Difficulty Verified 08/17/23 12:10 Breathing PMFSH Past Medical History Medical History Mood disorder PTSD (post-traumatic stress disorder) Polysubstance (including opioids) dependence, daily use Social History Social History Household Members: Other Household Members Other:: homeless Housing: Homeless Do you presently have visiting nurse or other home services: No Unable to assess alcohol history related to: Unknown Alcohol intake: current Alcohol intake frequency: 3 or more drinks per day Alcohol type: hard liquor Comment: 1:1 sitter Patient Tobacco Use Status: Current everyday Tobacco user Tobacco use type: Cigarette Cigarette Packs Per Day: 1.5 Cigarettes Per Day: 30.0 Years Smoked: 20 e-Cigarette/Vaping Use: Former Use Second Hand Smoke Exposure: Yes Substance Use Type: Crack/Cocaine and Heroin service: No Current occupational status: unemployed Sexual orientation: Straight/Heterosexual Physical Exam ED Vital Signs: Vital Signs - 24 hr 08/17/23 12:06 Temperature 99.8 F Pulse Rate 116 H Respiratory Rate 20 Blood Pressure 154/86 H Pulse Oximetry 96 Oxygen Delivery Method Room Air BMI result Body Mass Index 2929.2 Course Course Course Narrative: This is a rapid medical exam: Additional HPI, ROS, PE not included below will be deferred to primary provider. Lower abdominal pain. Hx rhabdo less than 6 months ago. IVDU with cocaine. On methadone but missed his dose this morning. Wants detox. Denies fever, chills, nausea, vomiting, diarrhea, BRBPR, SOB, CP Medical Decision Making Lab Data 08/17/23 13:40 08/17/23 13:40 Labs: Lab Results 08/17/23 Range/Units 13:40 WBC 7.7 (4.8-10.8) X10*3/uL RBC 4.89 D (4.60-5.80) X10*6/uL Hgb 13.3 L D (14.0-18.0) g/dl Hct 39.9 L D (42.0-52.0) % MCV 81.6 (80.0-98.0) fL MCH 27.2 (27.0-33.0) pg MCHC 33.3 (31.0-36.0) g/dl RDW 14.0 (11.0-16.0) % Plt Count 264 D (160-400) X10*3/uL MPV 11.1 (9.4-12.4) fL Immature Gran % (Auto) 0.3 (0.0-0.4) % Neut % (Auto) 69.2 (45-73) % Lymph % (Auto) 17.7 L (20-40) % [place] % (Auto) 8.2 (2-11) % Eos % (Auto) 3.8 (0-4) % Baso % (Auto) 0.8 (0-2) % Lymph # (Auto) 1.4 (1.2-4.9) X10*3/uL [place] # (Auto) 0.6 (0.1-1.2) X10*3/uL Eos # (Auto) 0.3 (0.0-0.4) X10*3/uL Baso # (Auto) 0.1 (0.0-0.2) X10*3/uL Abs Immat Gran (auto) 0.02 (0.00-0.03) X10*3/uL Absolute Neuts (auto) 5.3 (2.0-8.3) x10*3/uL Absolute Nucleated RBC 0.000 (0.0-0.012) X10*3/uL Nucleated RBC % (auto) 0.0 (0.0-0.2) /100WBC Sodium 140 (135-145) mmol/L Potassium 4.0 (3.3-5.1) mmol/L Chloride 105 (96-108) mmol/L Carbon Dioxide 25 (22-29) mmol/L Anion Gap 14 (12-20) BUN 18 H (9-16) mg/dL Creatinine 0.85 (0.5-1.4) mg/dL Estim Creat Clear Calc -30.5 Estimated GFR > 60 Random Glucose 109 (60-115) mg/dL Calcium 10.1 D (8.4-10.2) mg/dL Magnesium 2.1 (1.6-2.6) mg/dL Total Bilirubin 0.6 (0.0-1.0) mg/dL AST 21 (5-37) U/L ALT 19 (0-40) U/L Alkaline Phosphatase 84 (39-117) U/L Total Creatine Kinase 132 (38-174) U/L Total Protein 8.2 H (6.5-8.0) g/dL Albumin 4.8 (3.5-5.0) g/dL Discharge Plan Discharge Clinical Impression: Left before treatment completed Patient Disposition: Left W/O Completing Treatment Prescriptions: No Action quetiapine 100 mg tablet 100 mg PO BEDTIME baclofen 20 mg tablet 20 mg PO DAILY nicotine (polacrilex) 4 mg gum 4 mg PO Q3H PRN (Reason: cravings) Rx Instructions: while awake paroxetine HCl 30 mg tablet 60 mg PO DAILY clonidine HCl 0.1 mg tablet 0.1 mg PO Q4H PRN (Reason: Anxiety) hydroxyzine HCl 50 mg tablet 50 mg PO QID PRN (Reason: Anxiety) gabapentin 300 mg capsule 600 mg PO TID naproxen 500 mg tablet 500 mg PO DAILY PRN (Reason: Headache) methadone 10 mg/mL Concentrate 195 mg PO DAILY nicotine 21 mg/24 hr patch 24 hour 1 patch topical DAILY Qty: 30 0RF prazosin 2 mg capsule 4 mg PO BEDTIME Qty: 60 0RF
[2023-08-17 13:45] LABS: MANUAL DIFF FLAG NO
[2023-08-17 13:49] LABS: Basophils Absolute Auto 0.1 X10*3/uL (0.0-0.2); Basophils Percent Auto 0.8 % (0-2); Eosinophils Absolute Auto 0.3 X10*3/uL (0.0-0.4); Eosinophils Percent Auto 3.8 % (0-4); Hematocrit 39.9 % (42.0-52.0); Hemoglobin 13.3 g/dl (14.0-18.0); Imm Gran Abs Auto 0.02 X10*3/uL (0.00-0.03); Imm Gran Pct Auto 0.3 % (0.0-0.4); Lymphocytes Absolute Auto 1.4 X10*3/uL (1.2-4.9); Lymphocytes Percent Auto 17.7 % (20-40); Mean Corpuscular HGB Conc 33.3 g/dl (31.0-36.0); Mean Corpuscular Hemoglobin 27.2 pg (27.0-33.0); Mean Corpuscular Volume 81.6 fL (80.0-98.0); Mean Platelet Volume 11.1 fL (9.4-12.4); Monocytes Absolute Auto 0.6 X10*3/uL (0.1-1.2); Monocytes Percent Auto 8.2 % (2-11); Neutrophils Absolute Auto 5.3 x10*3/uL (2.0-8.3); Neutrophils Percent Auto 69.2 % (45-73); Platelet Count 264 X10*3/uL (160-400); Red Blood Count 4.89 X10*6/uL (4.60-5.80); White Blood Count 7.7 X10*3/uL (4.8-10.8)
[2023-08-17 14:04] LABS: Alanine Aminotransferase 19 U/L (0-40); Albumin Level 4.8 g/dL (3.5-5.0); Alkaline Phosphatase 84 U/L (39-117); Anion Gap 14 (12-20); Aspartate Amino Transferase 21 U/L (5-37); Bilirubin Total 0.6 mg/dL (0.0-1.0); Blood Urea Nitrogen 18 mg/dL (9-16); Calcium 10.1 mg/dL (8.4-10.2); Carbon Dioxide 25 mmol/L (22-29); Chloride 105 mmol/L (96-108); Creatinine Clr Calc Pharmacy -30.5; Estimated Glomerular Filt Rate > 60; Glucose Random 109 mg/dL (60-115); Magnesium 2.1 mg/dL (1.6-2.6); Sodium 140 mmol/L (135-145); Total Protein 8.2 g/dL (6.5-8.0)
== END 2023-08-17 15:54 | disposition left against medical advice (07) ==
PROVIDERS: Nurse Practitioner Family; Emergency Provider Emergency Medicine
DX: R10.30 Lower abdominal pain, unspecified (principal); F14.90 Cocaine use, unspecified, uncomplicated; F11.20 Opioid dependence, uncomplicated
CPT/HCPCS: 36415; 80053; 82550; 83735; 85025; 99281; 99283

== ENCOUNTER 2023-10-29 00:44 | Inpatient (IN) | payer OTHER, SELFPAY ==
[2023-10-29] VITALS (7 sets, daily range): BP systolic 107–157; BP diastolic 59–82; PULSE 61–95; RESP 16–20; TEMP 36.1–36.8; O2SAT 95–99; BMI 29.5; BMI 29.4
--- NOTE | ~2023-10-29 | CT_ITS ---
EXAMINATION: CT ABDOMEN AND PELVIS WITH CONTRAST CLINICAL INFORMATION: Abdominal pain. COMPARISON: Most recent CT abdomen/pelvis dated 11/13/2022. TECHNIQUE: Multidetector volumetric images were obtained from the superior aspect of the liver through the pubic symphysis following administration 85 mL of Omnipaque 350 intravenous contrast. Sagittal and coronal reformatted images were obtained on the technologist's workstation. Oral Contrast: No. This CT examination was performed using dose optimization techniques as appropriate, variously including the following: *Automated exposure control. *Adjustment of mA and/or kV according to patient size (this includes techniques or standardized protocols for targeted exams where dose is matched to indication/reason for exam; i.e. extremities or head). *Use of iterative reconstruction technique. DLP: 659 mGy-cm FINDINGS: LUNG BASES: The visualized lung bases are unremarkable. LIVER, GALLBLADDER, AND BILIARY TREE: The liver is normal in size, shape, and attenuation. No focal hepatic lesion or biliary ductal dilatation is present. Focal fatty infiltration adjacent to the falciform ligament. The gallbladder is unremarkable with no evidence of radiopaque gallstones, gallbladder wall thickening, or obvious pericholecystic inflammatory changes. PANCREAS: Unremarkable. SPLEEN: Unremarkable. ADRENAL GLANDS: Unremarkable. KIDNEYS AND URETERS: The kidneys are normal in size, shape, and attenuation. No hydronephrosis, hydroureter, or calculi seen. No perinephric stranding. BLADDER: Nondistended and unremarkable. GASTROINTESTINAL TRACT: Mild stool burden. No small or large bowel obstruction. No bowel wall thickening or inflammatory change. Unremarkable appendix. PERITONEAL CAVITY: No intra-abdominal free air or free fluid. No intra-abdominal mass or organized fluid collection/abscess formation. ABDOMINAL WALL: Small, fat-containing periumbilical hernia, unchanged. LYMPH NODES: No significant lymphadenopathy. VASCULAR: Unremarkable. PELVIC VISCERA: The prostate and seminal vesicles are unremarkable. OSSEOUS STRUCTURES: Unremarkable. CT/CT abdomen pelvis w IV con IMPRESSION: 1. Mild stool burden. No small or large bowel obstruction. No bowel wall thickening or inflammatory change. Unremarkable appendix. 2. No intra-abdominal mass, lymphadenopathy, or ascites. Fleischner guidelines were followed.
--- NOTE | ~2023-10-29 | XR_ITS ---
EXAMINATION: XR CHEST CLINICAL INFORMATION: 2 weeks of cough. COMPARISON: 10/30/2022 TECHNIQUE: 2 views of the chest were obtained. FINDINGS: No significant abnormality is noted involving the heart, lungs, mediastinum, bony thorax or soft tissues. XR/XR chest 2V IMPRESSION: Unremarkable examination.
[2023-10-29 01:42] LABS: Basophils Percent Auto 0.3 % (0-2); Eosinophils Absolute Auto 0.1 X10*3/uL (0.0-0.4); Eosinophils Percent Auto 0.7 % (0-4); Hematocrit 35.8 % (42.0-52.0); Imm Gran Abs Auto 0.08 X10*3/uL (0.00-0.03); Imm Gran Pct Auto 0.7 % (0.0-0.4); Lymphocytes Absolute Auto 2.3 X10*3/uL (1.2-4.9); Lymphocytes Percent Auto 20.7 % (20-40); MANUAL DIFF FLAG NO; Mean Corpuscular HGB Conc 33.5 g/dl (31.0-36.0); Mean Corpuscular Hemoglobin 27.6 pg (27.0-33.0); Mean Corpuscular Volume 82.5 fL (80.0-98.0); Mean Platelet Volume 9.3 fL (9.4-12.4); Monocytes Percent Auto 9.3 % (2-11); Neutrophils Absolute Auto 7.4 x10*3/uL (2.0-8.3); Neutrophils Percent Auto 68.3 % (45-73); Platelet Count 338 X10*3/uL (160-400); Red Blood Count 4.34 X10*6/uL (4.60-5.80); Red Cell Distribution Width 14.6 % (11.0-16.0); White Blood Count 10.9 X10*3/uL (4.8-10.8)
[2023-10-29 01:55] LABS: Alanine Aminotransferase 46 U/L (0-40); Albumin Level 4.9 g/dL (3.5-5.0); Alkaline Phosphatase 88 U/L (39-117); Anion Gap 19 (12-20); Aspartate Amino Transferase 173 U/L (5-37); Bilirubin Total 0.3 mg/dL (0.0-1.0); Blood Urea Nitrogen 33 mg/dL (9-16); Calcium 10.6 mg/dL (8.4-10.2); Carbon Dioxide 23 mmol/L (22-29); Chloride 104 mmol/L (96-108); Creatinine Clr Calc Pharmacy 120.4; Estimated Glomerular Filt Rate > 60; Glucose Random 81 mg/dL (60-115); Lipase 17 U/L (8-78); Potassium 4.4 mmol/L (3.3-5.1); Sodium 142 mmol/L (135-145)
[2023-10-29 02:19] LABS: Influenza A PCR NEGATIVE (Negative); Influenza B PCR NEGATIVE (Negative); Resp Syncy Virus RNA Qual PCR NEGATIVE (Negative); SARS COV2 PCR INHOUSE NEGATIVE (Negative)
--- NOTE | 2023-10-29 07:26 | ED_ITS ---
HPI - URI/Sore Throat General Chief Complaint: Upper Respiratory Symptoms Stated Complaint: body hurts/coughing up blood Time Seen by Provider: 10/29/23 07:24 Source: patient Mode of arrival: ambulatory Limitations: no limitations History of Present Illness HPI Narrative: This is a 32-year-old male history of polysubstance abuse ( on methadone), mood disorder, PTSD, rhabdomyolysis presenting with complaints of productive cough ( mostly yellow/ green but at times blood tinged) for the past 2 days that has been constant and seems to not be going away. He reports he is coughing so much that all his abdominal wall muscles are hurting and he coughed up blood tinged sputum a few times probably from irritation he adds. Reports he has severe body aches all over and can barely walk. He denies sick contacts. He reports the cough is just not going away he has not been feeling well reports muscle aches and pains, increased fatigue, malaise. Denies chest pain, shortness of breath, fevers, chills, nausea, vomiting, abdominal pain, headache, vision changes, dizziness, weakness. MD elicited complaint: cough Onset (ago): week(s) (2) Consistency: constant Related Data Home Medications ?Medication ?Instructions ?Recorded ?Confirmed methadone 10 mg/mL oral concentrate 195 mg PO DAILY 12/01/22 07/20/23 baclofen 20 mg tablet 20 mg PO DAILY 07/20/23 07/20/23 clonidine HCl 0.1 mg tablet 0.1 mg PO Q4H PRN Anxiety 07/20/23 07/20/23 gabapentin 300 mg capsule 600 mg PO TID 07/20/23 07/20/23 hydroxyzine HCl 50 mg tablet 50 mg PO QID PRN Anxiety 07/20/23 07/20/23 naproxen 500 mg tablet 500 mg PO DAILY PRN Headache 07/20/23 07/20/23 nicotine (polacrilex) 4 mg gum 4 mg PO Q3H PRN cravings 07/20/23 07/20/23 paroxetine HCl 30 mg tablet 60 mg PO DAILY 07/20/23 07/20/23 quetiapine 100 mg tablet 100 mg PO BEDTIME 07/20/23 07/20/23 Previous Rx's ?Medication ?Instructions ?Recorded nicotine 21 mg/24 hr daily 1 patch topical DAILY #30 ea 12/06/22 transdermal patch prazosin 2 mg capsule 4 mg (2 x 2 mg) PO BEDTIME #60 caps 12/06/22 Allergies Allergy/AdvReac Type Severity Reaction Status Date / Time amoxicillin Allergy Hives Verified 10/29/23 00:56 Penicillins [PCN] Allergy Hives Verified 10/29/23 00:56 seafood Allergy Difficulty Verified 10/29/23 00:56 Breathing Review of Systems 2 Review of Systems: Yes all other systems are reviewed and are negative PMFSH Past Medical History Attestation statement: The following information was validated with the patient. Source: old records reviewed and nursing notes reviewed Medical History Mood disorder PTSD (post-traumatic stress disorder) Polysubstance (including opioids) dependence, daily use Social History Social History Household Members: Other Household Members Other:: homeless Housing: Homeless Do you presently have visiting nurse or other home services: No Unable to assess alcohol history related to: Unknown Alcohol intake: current Alcohol intake frequency: 3 or more drinks per day Alcohol type: hard liquor Comment: 1:1 sitter Patient Tobacco Use Status: Current everyday Tobacco user Tobacco use type: Cigarette Cigarette Packs Per Day: 1.5 Cigarettes Per Day: 30.0 Years Smoked: 20 e-Cigarette/Vaping Use: Former Use Second Hand Smoke Exposure: Yes Substance Use Type: Crack/Cocaine and Heroin Advance Directives: No Advance Directives Information Provided: No Do you have a plan to hurt others: No Plan service: No Current occupational status: unemployed Sexual orientation: Straight/Heterosexual Physical Exam 2 Vital Signs: Vital Signs: Last Vital Signs Temp 98.2 F 10/29/23 07:33 Pulse 71 10/29/23 07:33 Resp 20 10/29/23 07:33 BP 107/67 10/29/23 07:33 Pulse Ox 96 10/29/23 07:33 O2 Del Method Room Air 10/29/23 07:33 BMI result Body Mass Index 29.5 vss Appearance: Alert.? Oriented X3.? No acute distress.? Head: Normocephalic, atraumatic, no step-offs or deformities Eyes: Pupils equal, round and reactive to light.? CVS: Normal heart rate and rhythm.? Pulses normal.? Respiratory: No respiratory distress.? Breath sounds normal.? Abdomen: Soft and nontender.? Skin: Skin warm and dry.? Normal skin color.? Normal skin turgor.? Extremities: No lower extremity edema.? No calf ttp. 5/5 strength to bilateral upper and lower extremities Back: No midline tenderness, no C-spine tenderness, full range of motion, no CVA tenderness bilaterally Neuro: Oriented X 3.? No motor deficit.? No sensory deficit. CN 2-12 intact Course Reevaluation(s) Reevaluation #1: CBC with slight leukocytosis no left shift. A baseline normocytic anemia is noted, not deviating from baseline. Slight RONA noted will give IV fluids 1 L. flu, COVID, RSV negative. Time: 07:33 Reevaluation #2: Patient's CPK 9593 consistent with acute rhabdomyolysis. There is also a bump in patient's BUN and creatinine. Hydrating with IV fluids. Time: 09:02 Reevaluation #3: Plan hospital admission. Time: 09:37 Medications Administered Discontinued Medications Generic Name Dose Route Start Last Admin Trade Name Freq PRN Reason Stop Dose Admin Doxycycline Monohydrate 100 mg 10/29/23 08:49 10/29/23 09:37 Doxycycline Monohydrate 100 Mg Capsule PO 10/29/23 08:50 100 mg ONCE ONE Administration Sodium Chloride 1,000 mls @ 999 mls/hr 10/29/23 07:45 10/29/23 09:12 Ns IV 10/29/23 08:45 999 mls/hr .Q1H1M [facility] Administration Medical Decision Making Medical Decision Making [facility] Narrative: 0728 32-year-old male presents with productive cough x2 weeks with associated fatigue, malaise, myalgias. Physical exam benign. Vital signs stable. History and physical exam consistent with bronchitis and possible rhabdo. Unlikely pneumonia, PE ( perc negative), ACS, dissection, acute respiratory distress. Less electrolyte abnormalities. Will rule out viral illness. Hemoptysis is likely secondary to acute bronchitis unlikely tuberculosis, upper GI bleed, acute blood loss anemia no signs of hemodynamic instability. Plan at this time labs, imaging, viral test. Differential Diagnosis Differential Diagnoses: The differential diagnosis associated with the presentation includes History and physical exam consistent with bronchitis and possible rhabdo. Unlikely pneumonia, PE ( perc negative), ACS, dissection, acute respiratory distress. Less electrolyte abnormalities. Will rule out viral illness. Hemoptysis is likely secondary to acute bronchitis unlikely tuberculosis, upper GI bleed, acute blood loss anemia no signs of hemodynamic instability. Admission/Observation Consideration of admission/observation: Escalation of care including admission/observation considered possible Lab Data MDM Lab Attestation statement: I reviewed the patient's lab results. 10/29/23 01:37 10/29/23 01:37 Labs: Lab Results 10/29/23 Range/Units 01:37 WBC 10.9 H (4.8-10.8) X10*3/uL RBC 4.34 L (4.60-5.80) X10*6/uL Hgb 12.0 L (14.0-18.0) g/dl Hct 35.8 L (42.0-52.0) % MCV 82.5 (80.0-98.0) fL MCH 27.6 (27.0-33.0) pg MCHC 33.5 (31.0-36.0) g/dl RDW 14.6 (11.0-16.0) % Plt Count 338 D (160-400) X10*3/uL MPV 9.3 L (9.4-12.4) fL Immature Gran % (Auto) 0.7 H (0.0-0.4) % Neut % (Auto) 68.3 (45-73) % Lymph % (Auto) 20.7 (20-40) % [place] % (Auto) 9.3 (2-11) % Eos % (Auto) 0.7 (0-4) % Baso % (Auto) 0.3 (0-2) % Lymph # (Auto) 2.3 (1.2-4.9) X10*3/uL [place] # (Auto) 1.0 (0.1-1.2) X10*3/uL Eos # (Auto) 0.1 (0.0-0.4) X10*3/uL Baso # (Auto) 0.0 (0.0-0.2) X10*3/uL Abs Immat Gran (auto) 0.08 H (0.00-0.03) X10*3/uL Absolute Neuts (auto) 7.4 (2.0-8.3) x10*3/uL Absolute Nucleated RBC 0.000 (0.0-0.012) X10*3/uL Nucleated RBC % (auto) 0.0 (0.0-0.2) /100WBC Sodium 142 (135-145) mmol/L Potassium 4.4 (3.3-5.1) mmol/L Chloride 104 (96-108) mmol/L Carbon Dioxide 23 (22-29) mmol/L Anion Gap 19 (12-20) BUN 33 H (9-16) mg/dL Creatinine 1.01 (0.5-1.4) mg/dL Estim Creat Clear Calc 120.4 Estimated GFR > 60 Random Glucose 81 (60-115) mg/dL Calcium 10.6 H (8.4-10.2) mg/dL Total Bilirubin 0.3 (0.0-1.0) mg/dL AST 173 H (5-37) U/L ALT 46 H (0-40) U/L Alkaline Phosphatase 88 (39-117) U/L Total Creatine Kinase 9593 H (38-174) U/L Total Protein 9.0 H (6.5-8.0) g/dL Albumin 4.9 (3.5-5.0) g/dL Lipase 17 (8-78) U/L Influenza Type A (PCR) NEGATIVE (Negative) Influenza Type B (PCR) NEGATIVE (Negative) RSV RNA Qual (PCR) NEGATIVE (Negative) SARS-CoV-2 RNA (RT-PCR) NEGATIVE (Negative) Independent Interpretation I performed an independent interpretation of an: Plain X-Ray (XR/XR chest 2V IMPRESSION: Unremarkable examination.) Radiology Impression Discussion of test interpretation with radiology: I have reviewed the radiologist's reading. External Record Review External record reviewed: Inpatient record, Office record, Outpatient record, Prior outpatient labs, Prior outpatient radiology, Primary care record and Outside ED record Prescription Management I considered prescription management with: Antibiotic and Other (prednisone, albuterol ) Chronic Conditions Patient?s care impacted by: Other (polysubstance ) Social Determinants Patient?s care significantly limited by Social Determinants of Health including: Alcoholism and drug addiction in family and Other Social Determinant of Health Critical Care Time Critical Care Time Critical Care Time: Yes Total Critical Care Time: 45 Attestation: I attest to this time spent taking care of the patient, obtaining history, physical, reviewing labs, imaging, speaking to my attending, speaking to specialist. Discharge Plan Discharge Clinical Impression: Bronchitis, Hemoptysis Rhabdomyolysis Qualifiers: Rhabdomyolysis type: traumatic Encounter type: initial encounter Qualified Code(s): T79.6XXA - Traumatic ischemia of muscle, initial encounter Patient Disposition: Admitted As Inpatient Additional Instructions: Take your medications as prescribed. If you were prescribed antibiotics today, it is important that you take your medication to their entirety, do not skip any doses, do not finish them early. Follow-up with your primary care provider this week. Return to the emergency department with new or worsening symptoms. Such as fevers, chills, chest pain, shortness of breath, nausea, vomiting, dizziness, headache, vision changes, lethargy In case of emergency call 911 Print Language: Macanese
[2023-10-29] MEDS: 0.9 % Sodium Chloride 1,000 ML 999 ML IV ×2 (09:12→11:06)
[2023-10-29] MEDS: Doxycycline Monohydrate 100 MG CAPSULE PO ×2 (09:37→19:57)
--- NOTE | 2023-10-29 10:09 | PC.NURSE ---
Methadone clinic from [facility] gave this patient take home doses of 195mg for October 26 and . Form sent to pharmacy
--- NOTE | 2023-10-29 10:44 | HE.PHANOTE ---
Methadone Patient has received from [facility] ([phone]), confirmed by Nancy in clinic on 10/29/23 1000. Last dose was 195 mg on 10/28/23, has take home doses for the and .
--- NOTE | 2023-10-29 10:56 | PHA.MEDREC ---
Pharmacy Consult ? Medication Reconciliation Pharmacy has completed the medication reconciliation.
[2023-10-29] MEDS: iohexoL 350 MG/ML 100 ML INFUS..BTL IV (12:23)
--- NOTE | 2023-10-29 12:28 | PM.IMHP ---
History of Present Illness Date of Service: 10/29/23 Attending physician on admission: Aurora Winslow Chief Complaint: cough This is a 32-year-old male with history of PTSD, polysubstance abuse who presents to the emergency department with multiple complaints. The past several days patient has had cough productive of green phlegm and streaked with blood. He has had mild associated shortness of breath, no fever no chills. He denies any recent sick contacts. Also reports generalized weakness and muscle aches as well as decreased appetite. He recently completed a 30 day detox program 2 days ago. Yesterday he used cocaine. He reports left side flank/lower abdominal pain. Denies any nausea, vomiting, diarrhea. Denies any urinary symptoms. In the emergency department he was afebrile, no leukocytosis noted. LFTs were slightly elevated. CPK 9593. Chest x-ray negative for pneumonia. He was given a dose of doxycycline for possible bronchitis and IV fluid due to rhabdomyolysis. For this reason the decision was made to admit him to the hospital for further management. Review of Systems Review of Systems: Yes all other systems are reviewed and are negative Constitutional: Constitutional: Denies chills and Denies fever(s) Cardiovascular: Cardiovascular: Denies chest pain Respiratory: Respiratory: Reports cough Gastrointestinal: Gastrointestinal: Reports abdominal pain, Denies nausea and Denies vomiting [facility] Medical History Cocaine use disorder, moderate, dependence Mood disorder PTSD (post-traumatic stress disorder) Polysubstance (including opioids) dependence, daily use Social History Household Members: Other Household Members Other:: homeless Housing: Homeless Do you presently have visiting nurse or other home services: No Unable to assess alcohol history related to: Unknown Alcohol intake: current Alcohol intake frequency: does not drink Alcohol type: hard liquor Comment: 1:1 sitter Patient Tobacco Use Status: Current everyday Tobacco user Tobacco use type: Cigarette Cigarette Packs Per Day: 1.5 Cigarettes Per Day: 30.0 Years Smoked: 20 Smoked in Last 30 Days: Yes e-Cigarette/Vaping Use: Former Use Second Hand Smoke Exposure: Yes Substance Use Type: Marijuana and Other Substance Use Frequency: Daily Last Used Substance: Days (ago) Any prior treatment program specific to substance use: Yes Advance Directives: No Advance Directives Information Provided: No Do you have a plan to hurt others: No Plan Nutrition Risks: No Nutritional Risk service: No Current occupational status: unemployed Sexual orientation: Straight/Heterosexual Meds Allergies Allergy/AdvReac Type Severity Reaction Status Date / Time amoxicillin Allergy Hives Verified 10/29/23 00:56 Penicillins [PCN] Allergy Hives Verified 10/29/23 00:56 seafood Allergy Difficulty Verified 10/29/23 00:56 Breathing Active Medications: Current Medications Doxycycline Monohydrate (Doxycycline Monohydrate 100 Mg Capsule) 100 mg PO BID BESSIE Home Medications ?Medication ?Instructions ?Recorded ?Confirmed ?Last Taken ?Type methadone 10 mg/mL oral concentrate 195 mg PO DAILY 12/01/22 10/29/23 10/28/23 History baclofen 20 mg tablet 20 mg PO BID 07/20/23 10/29/23 10/28/23 History clonidine HCl 0.1 mg tablet 0.1 mg PO Q4H PRN Anxiety 07/20/23 10/29/23 Unknown History hydroxyzine HCl 50 mg tablet 50 mg PO QID PRN Anxiety 07/20/23 10/29/23 Unknown History naproxen 500 mg tablet 500 mg PO DAILY PRN Headache 07/20/23 10/29/23 Unknown History quetiapine 100 mg tablet 100 mg PO BEDTIME 07/20/23 10/29/23 10/28/23 History gabapentin 800 mg tablet 800 mg PO TID 10/29/23 10/29/23 10/28/23 History nicotine (polacrilex) 2 mg buccal 2 mg PO Q2H PRN Nicotine Cravings 10/29/23 10/29/23 Unknown History lozenge paroxetine HCl 20 mg tablet 20 mg PO DAILY 10/29/23 10/29/23 10/28/23 History paroxetine HCl 40 mg tablet 40 mg PO DAILY 10/29/23 10/29/23 10/28/23 History pramipexole 0.125 mg tablet 0.125 mg PO DAILY 10/29/23 10/29/23 10/28/23 History Physical Exam Vital Signs and Narrative: Vital Signs: Last Vital Signs Temp 98.3 F 10/29/23 10:28 Pulse 61 10/29/23 10:28 Resp 20 10/29/23 10:28 BP 108/65 10/29/23 10:28 Pulse Ox 99 10/29/23 10:28 O2 Del Method Room Air 10/29/23 10:28 BMI result Body Mass Index 29.5 Const: General: cooperative, no acute distress, alert and awake Nutritional Appearance: average body habitus Orientation/consciousness: patient oriented x3 Resp: Effort & Inspection: normal respiratory effort, no respiratory distress and no use of accessory muscles Cardio: Rate: regular rate GI: Other: Mild tenderness left lower quadrant, left side; no guarding, no rebound Inspection: No distended Palpation (GI): Soft to palpation Neuro: General: patient oriented x3, moves all extremities and CN's II-XI intact bilaterally Extrem: General: Yes no pedal edema Results Labs 10/29/23 01:37 10/29/23 14:25 Labs: Laboratory Results - last 24 hr 10/29/23 01:37 MCV 82.5 MCH 27.6 MCHC 33.5 RDW 14.6 Plt Count 338 D MPV 9.3 L Immature Gran % (Auto) 0.7 H Neut % (Auto) 68.3 Lymph % (Auto) 20.7 [place] % (Auto) 9.3 Eos % (Auto) 0.7 Baso % (Auto) 0.3 Lymph # (Auto) 2.3 [place] # (Auto) 1.0 Eos # (Auto) 0.1 Baso # (Auto) 0.0 Abs Immat Gran (auto) 0.08 H Absolute Neuts (auto) 7.4 Absolute Nucleated RBC 0.000 Nucleated RBC % (auto) 0.0 Anion Gap 19 Estim Creat Clear Calc 120.4 Estimated GFR > 60 Random Glucose 81 Calcium 10.6 H Total Bilirubin 0.3 AST 173 H ALT 46 H Alkaline Phosphatase 88 Total Creatine Kinase 9593 H Total Protein 9.0 H Albumin 4.9 Lipase 17 Influenza Type A (PCR) NEGATIVE Influenza Type B (PCR) NEGATIVE RSV RNA Qual (PCR) NEGATIVE SARS-CoV-2 RNA (RT-PCR) NEGATIVE Imaging Radiologist's Impressions: Impressions Chest X-Ray 10/29/23 01:09 IMPRESSION: Unremarkable examination. Assessment and Plan (1) Rhabdomyolysis: Qualifiers: Encounter type: initial encounter Rhabdomyolysis type: traumatic Qualified Code(s): T79.6XXA - Traumatic ischemia of muscle, initial encounter Status: Acute Plan This is a 32-year-old male with history of PTSD, anxiety, polysubstance abuse on methadone who presents to the emergency department with complaints of productive cough and generalized body aches found to have rhabdomyolysis in the setting of cocaine use Acute rhabdomyolysis Likely due to cocaine use Tox screen pending IV fluid Follow renal function and CPK levels Polysubstance abuse No evidence of withdrawal Continue baseline medications including methadone Cough Chest x-ray with no evidence of pneumonia No evidence of sepsis. No hypoxia doxy for possible bronchitis Symptomatic support for cough Flu, RSV, COVID-19 negative Mood Continue home medications Normocytic anemia Chronic, H/H at baseline Above transfusion threshold abdominal pain will check CT abdomen symptomatic support DVT prophylaxis-mechanical devices Patient requires ongoing inpatient stay for close monitoring of renal function and CPK levels Quality Stroke Does the patient have a stroke diagnosis?: No VTE Prior VTE?: No VTE Risk Level:: Medical - low VTE Device Contraindication: N/A - Device Ordered VTE Drug Contraindication: Treatment Not Indicated
[2023-10-29 12:43] LABS: Amphetamine Screen Urine Not Detected (Not Detect); Barbiturates, Urine Not Detected (Not Detect); Benzodiazepines Screen Urine POSITIVE (Not Detect); Buprenorphine Scr Not Detected (Not Detect); Cannabinoid Screen Urine POSITIVE (Not Detect); Cocaine Screen Urine POSITIVE (Not Detect); Fentanyl, urine Not Detected (Not Detect); Methadone Screen, Urine Positive (Not Detect); Opiate Screen Urine Not Detected (Not Detect); Oxycodone Screen Urine Not Detected (Not Detect); Phencyclidine Screen Urine Not Detected (Not Detect)
[2023-10-29] MEDS: methADONE HCl 20 MG/2 ML ORAL.CONC 195 MG PO (13:49)
[2023-10-29] MEDS: Lactated Ringers 1,000 ML 125 ML IVCONT ×2 (14:49→23:18)
[2023-10-29] MEDS: Acetaminophen 325 MG TABLET 650 MG PO (14:58)
[2023-10-29] MEDS: Benzonatate 100 MG CAPSULE PO ×2 (14:59→19:57)
[2023-10-29] MEDS: Gabapentin 400 MG CAPSULE 800 MG PO ×2 (14:59→19:56)
[2023-10-29] MEDS: hydrOXYzine HCL 50 MG TABLET PO ×2 (14:59→19:57)
[2023-10-29] MEDS: Nicotine Polacrilex Lozenge 2 MG LOZENGE BUCCAL ×2 (14:59→20:06)
[2023-10-29 15:09] LABS: Anion Gap 14 (12-20); Blood Urea Nitrogen 26 mg/dL (9-16); Calcium 8.8 mg/dL (8.4-10.2); Carbon Dioxide 22 mmol/L (22-29); Carbon Dioxide 23 mmol/L (22-29); Chloride 108 mmol/L (96-108); Creatinine Clr Calc Pharmacy 148.3; Estimated Glomerular Filt Rate > 60; Glucose Random 85 mg/dL (60-115); Glucose Random 86 mg/dL (60-115); Potassium 4.2 mmol/L (3.3-5.1); Potassium 4.3 mmol/L (3.3-5.1); Sodium 140 mmol/L (135-145); Sodium 141 mmol/L (135-145)
[2023-10-29] MEDS: Prazosin HCL 1 MG CAPSULE 4 MG PO (19:56)
[2023-10-29] MEDS: QUEtiapine Fumarate 100 MG TABLET PO (19:57)
[2023-10-29] MEDS: Baclofen 20 MG TABLET PO (19:57)
[2023-10-30] MEDS: Nicotine Polacrilex Lozenge 2 MG LOZENGE BUCCAL ×6 (01:11→20:11)
[2023-10-30] MEDS: Acetaminophen 325 MG TABLET 650 MG PO ×3 (01:11→15:30)
[2023-10-30 04:00] VITALS: BP 128/68; PULSE 61; RESP 18; TEMP 36; O2SAT 93
[2023-10-30] MEDS: Lactated Ringers 1,000 ML 125 ML IVCONT ×3 (06:06→20:08)
[2023-10-30 06:35] LABS: Anion Gap 11 (12-20); Blood Urea Nitrogen 19 mg/dL (9-16); Calcium 9.1 mg/dL (8.4-10.2); Carbon Dioxide 25 mmol/L (22-29); Chloride 109 mmol/L (96-108); Creatinine Clr Calc Pharmacy 155.7; Estimated Glomerular Filt Rate > 60; Glucose Random 99 mg/dL (60-115); Sodium 141 mmol/L (135-145)
[2023-10-30 07:38] VITALS: BP 108/59; PULSE 58; RESP 16; TEMP 36.2; O2SAT 95
[2023-10-30 08:30] LABS: Alanine Aminotransferase 35 U/L (0-40); Albumin Level 3.7 g/dL (3.5-5.0); Alkaline Phosphatase 70 U/L (39-117); Aspartate Amino Transferase 77 U/L (5-37); Bilirubin Direct < 0.2 mg/dL (0.0-0.5); Bilirubin Total 0.2 mg/dL (0.0-1.0); Total Protein 6.5 g/dL (6.5-8.0)
[2023-10-30] MEDS: Doxycycline Monohydrate 100 MG CAPSULE PO ×2 (08:49→20:10)
[2023-10-30] MEDS: Pramipexole Di-HCL 0.125 MG TABLET PO (08:49)
[2023-10-30] MEDS: PARoxetine HCL 20 MG TABLET PO (08:50)
[2023-10-30] MEDS: Nicotine 21 MG PATCH.TD24 TRANSDERMA (08:50)
[2023-10-30] MEDS: Benzonatate 100 MG CAPSULE PO ×2 (08:50→20:11)
[2023-10-30] MEDS: Baclofen 20 MG TABLET PO ×2 (08:50→20:09)
[2023-10-30] MEDS: PARoxetine HCL 40 MG TABLET PO (08:50)
[2023-10-30] MEDS: methADONE HCl 20 MG/2 ML ORAL.CONC 195 MG PO (08:50)
[2023-10-30] MEDS: Gabapentin 400 MG CAPSULE 800 MG PO ×3 (08:50→20:11)
[2023-10-30] MEDS: 0.9 % Sodium Chloride Flush 3 ML SYRINGE IVFLUSH (08:51)
--- NOTE | 2023-10-30 11:24 | HO.PM.IMPN ---
Subjective Subjective Date of Service: 10/30/23 Interval History: seen and examined this morning follow up for bronchitis, rhabdo Reporting cough, still with generalized muscle pain Review of Systems Review of Systems: Yes all other systems are reviewed and are negative Constitutional Constitutional: Denies chills and Denies fever(s) Cardiovascular Cardiovascular: Denies chest pain and Reports dyspnea Respiratory Respiratory: Reports cough and Reports dyspnea Physical Exam Vital Signs: Vital Signs: Last Vital Signs Temp 97.1 F 10/30/23 07:38 Pulse 58 10/30/23 07:38 Resp 16 10/30/23 07:38 BP 108/59 L 10/30/23 07:38 Pulse Ox 95 10/30/23 07:38 O2 Del Method Room Air 10/30/23 07:38 BMI result Body Mass Index 29.4 Const: General: cooperative, no acute distress, alert and awake Nutritional Appearance: average body habitus Orientation/consciousness: patient oriented x3 Resp: Effort & Inspection: normal respiratory effort, no respiratory distress and no use of accessory muscles Cardio: Rate: regular rate GI: Other: Mild tenderness left lower quadrant, left side; no guarding, no rebound Inspection: No distended Palpation (GI): Soft to palpation Neuro: General: patient oriented x3, moves all extremities and CN's II-XI intact bilaterally Extrem: General: Yes no pedal edema Objective Data Active Medications Acetaminophen (Acetaminophen 325 Mg Tablet) 650 mg PO Q6H PRN PRN Reason: Pain, Mild (Pain Scale 1-3) Last Admin: 10/30/23 08:50 Dose: 650 mg Documented By: MARGUERITE Albuterol Sulfate (Albuterol Sulfate (0.083%) 2.5 Mg/3 Ml Vial.Neb) 2.5 mg INHALE Q6H PRN PRN Reason: Shortness of Breath/Wheezing Baclofen (Baclofen 20 Mg Tablet) 20 mg PO BID BESSIE Last Admin: 10/30/23 08:50 Dose: 20 mg Documented By: MARGUERITE Benzonatate (Benzonatate 100 Mg Capsule) 100 mg PO TID PRN PRN Reason: Cough Last Admin: 10/30/23 08:50 Dose: 100 mg Documented By: MARGUERITE Docusate Sodium (Docusate Sodium 100 Mg Capsule) 100 mg PO DAILY PRN PRN Reason: Constipation Doxycycline Monohydrate (Doxycycline Monohydrate 100 Mg Capsule) 100 mg PO BID [facility] Last Admin: 10/30/23 08:49 Dose: 100 mg Documented By: MARGUERITE Gabapentin (Gabapentin 400 Mg Capsule) 800 mg PO TID [facility] Last Admin: 10/30/23 08:50 Dose: 800 mg Documented By: MARGUERITE Hydroxyzine HCl (Hydroxyzine Hcl 50 Mg Tablet) 50 mg PO QID PRN PRN Reason: Anxiety Last Admin: 10/29/23 19:57 Dose: 50 mg Documented By: BEATRIZ Lactated Ringer's (Lr) 1,000 mls @ 125 mls/hr IVCONT .Q8H [facility] Last Admin: 10/30/23 06:06 Dose: 125 mls/hr Documented By: BEATRIZ Methadone HCl (Methadone Hcl 20 Mg/2 Ml Oral.Conc) 195 mg PO DAILY [facility] Last Admin: 10/30/23 08:50 Dose: 195 mg Documented By: MARGUERITE Nicotine (Nicotine 21 Mg Patch.Td24) 21 mg TRANSDERMA DAILY [facility] Last Admin: 10/30/23 08:50 Dose: 21 mg Documented By: MARGUERITE Nicotine Polacrilex (Nicotine Polacrilex Lozenge 2 Mg Lozenge) 2 mg BUCCAL Q2H PRN PRN Reason: Nicotine Cravings Last Admin: 10/30/23 08:50 Dose: 2 mg Documented By: MARGUERITE Paroxetine HCl (Paroxetine Hcl 20 Mg Tablet) 20 mg PO DAILY [facility] Last Admin: 10/30/23 08:50 Dose: 20 mg Documented By: MARGUERITE Paroxetine HCl (Paroxetine Hcl 40 Mg Tablet) 40 mg PO DAILY [facility] Last Admin: 10/30/23 08:50 Dose: 40 mg Documented By: MARGUERITE Pramipexole Dihydrochloride (Pramipexole Di-Hcl 0.125 Mg Tablet) 0.125 mg PO DAILY [facility] Last Admin: 10/30/23 08:49 Dose: 0.125 mg Documented By: MARGUERITE Prazosin HCl (Prazosin Hcl 1 Mg Capsule) 4 mg PO BEDTIME [facility]; Protocol Last Admin: 10/29/23 19:56 Dose: 4 mg Documented By: BEATRIZ Comments: BP 133/77 Quetiapine Fumarate (Quetiapine Fumarate 100 Mg Tablet) 100 mg PO BEDTIME [facility] Last Admin: 10/29/23 19:57 Dose: 100 mg Documented By: BEATRIZ Sodium Chloride (0.9 % Sodium Chloride Flush 3 Ml Syringe) 3 ml IVFLUSH QSHIFT [facility] Last Admin: 10/30/23 08:51 Dose: 3 ml Documented By: MARGUERITE Labs 10/29/23 01:37 10/30/23 05:50 Labs: Laboratory Results - last 24 hr 10/29/23 10/29/23 10/29/23 12:16 14:25 14:25 Hold Purple Top Anion Gap 14 14 Estim Creat Clear Calc 143.0 Estimated GFR Random Glucose Calcium Total Bilirubin Direct Bilirubin AST ALT Alkaline Phosphatase Total Creatine Kinase Total Protein Albumin Urine Opiates Screen Not Detected Ur Buprenorphine Scrn Not Detected Ur Oxycodone Screen Not Detected Urine Methadone Screen Positive H Urine Fentanyl Screen Not Detected Ur Barbiturates Screen Not Detected Ur Phencyclidine Scrn Not Detected Ur Amphetamines Screen Not Detected U Benzodiazepines Scrn POSITIVE H Urine Cocaine Screen POSITIVE H U Marijuana (THC) Screen POSITIVE H 10/29/23 10/29/23 10/29/23 14:25 14:25 14:25 Hold Purple Top Anion Gap Estim Creat Clear Calc 148.3 Estimated GFR > 60 > 60 Random Glucose 85 86 Calcium 8.8 D Total Bilirubin Direct Bilirubin AST ALT Alkaline Phosphatase Total Creatine Kinase Total Protein Albumin Urine Opiates Screen Ur Buprenorphine Scrn Ur Oxycodone Screen Urine Methadone Screen Urine Fentanyl Screen Ur Barbiturates Screen Ur Phencyclidine Scrn Ur Amphetamines Screen U Benzodiazepines Scrn Urine Cocaine Screen U Marijuana (THC) Screen 10/29/23 10/30/23 14:25 05:50 Hold Purple Top SEE NOTE Anion Gap 11 L Estim Creat Clear Calc 155.7 Estimated GFR > 60 Random Glucose 99 Calcium 8.8 9.1 Total Bilirubin 0.2 Direct Bilirubin < 0.2 AST 77 H ALT 35 Alkaline Phosphatase 70 Total Creatine Kinase 6149 H 3135 H Total Protein 6.5 Albumin 3.7 Urine Opiates Screen Ur Buprenorphine Scrn Ur Oxycodone Screen Urine Methadone Screen Urine Fentanyl Screen Ur Barbiturates Screen Ur Phencyclidine Scrn Ur Amphetamines Screen U Benzodiazepines Scrn Urine Cocaine Screen U Marijuana (THC) Screen Assessment and Plan (1) Bronchitis: Status: Acute (2) Rhabdomyolysis: Status: Acute Plan This is a 32-year-old male with history of PTSD, anxiety, polysubstance abuse on methadone who presents to the emergency department with complaints of productive cough and generalized body aches found to have rhabdomyolysis in the setting of cocaine use Acute rhabdomyolysis Likely due to cocaine use. Has had multiple admissions for rhabdo due to cocaine use Continue IV fluid CPK trending down Renal function stable LFTs trending down Polysubstance abuse No evidence of withdrawal Continue baseline medications including methadone Cough Chest x-ray with no evidence of pneumonia No evidence of sepsis. No hypoxia doxy for bronchitis Symptomatic support for cough Flu, RSV, COVID-19 negative Mood Continue home medications Normocytic anemia Chronic, H/H at baseline Above transfusion threshold abdominal pain CT abdomen unremarkable Tobacco dependence smoking cessation advised Nicotine replacement therapy DVT prophylaxis-mechanical devices, early ambulation Patient requires ongoing inpatient stay for close monitoring of renal function and CPK levels Quality Stroke Does the patient have a stroke diagnosis?: No VTE Prior VTE?: No VTE Risk Level:: Medical - low VTE Device Contraindication: N/A - Device Ordered VTE Drug Contraindication: Treatment Not Indicated
[2023-10-30] MEDS: hydrOXYzine HCL 50 MG TABLET PO (15:30)
[2023-10-30 15:45] VITALS: BP 124/74; PULSE 63; RESP 18; TEMP 36.6; O2SAT 93
--- NOTE | 2023-10-30 15:58 | MHC.CM.PN ---
PT REPORTS HE IS HOMELESS AND [place]ES [place] [address] HE IS NOT CONNECTED WITH ANY COMMUNITY SERVICES AND USES NO DME PT DECLINES TO COMPLETE A HCP AND HAS NO PCP PT HOPES TO DC TO A SA TREATMENT PROGRAM
[2023-10-30 19:40] VITALS: BP 127/78; PULSE 62; RESP 18; TEMP 36.3; O2SAT 97
[2023-10-30 20:08] VITALS: BP 127/78
[2023-10-30] MEDS: Prazosin HCL 1 MG CAPSULE 4 MG PO (20:08)
[2023-10-30] MEDS: QUEtiapine Fumarate 100 MG TABLET PO (20:10)
[2023-10-31 03:19] VITALS: BP 115/67; PULSE 63; RESP 16; TEMP 36.3; O2SAT 93
[2023-10-31] MEDS: Nicotine Polacrilex Lozenge 2 MG LOZENGE BUCCAL ×3 (03:29→12:46)
[2023-10-31] MEDS: Benzonatate 100 MG CAPSULE PO (03:32)
[2023-10-31] MEDS: Lactated Ringers 1,000 ML 125 ML IVCONT (05:46)
[2023-10-31 07:38] VITALS: BP 129/85; PULSE 63; RESP 18; TEMP 36.4; O2SAT 95
[2023-10-31] MEDS: Pramipexole Di-HCL 0.125 MG TABLET PO (08:25)
[2023-10-31] MEDS: PARoxetine HCL 40 MG TABLET PO (08:25)
[2023-10-31] MEDS: Doxycycline Monohydrate 100 MG CAPSULE PO (08:25)
[2023-10-31] MEDS: Gabapentin 400 MG CAPSULE 800 MG PO (08:25)
[2023-10-31] MEDS: PARoxetine HCL 20 MG TABLET PO (08:25)
[2023-10-31] MEDS: Baclofen 20 MG TABLET PO (08:25)
[2023-10-31] MEDS: methADONE HCl 20 MG/2 ML ORAL.CONC 195 MG PO (08:25)
[2023-10-31] MEDS: Nicotine 21 MG PATCH.TD24 TRANSDERMA (08:27)
[2023-10-31 08:48] LABS: Anion Gap 13 (12-20); Blood Urea Nitrogen 15 mg/dL (9-16); Calcium 9.4 mg/dL (8.4-10.2); Carbon Dioxide 28 mmol/L (22-29); Chloride 106 mmol/L (96-108); Creatinine Clr Calc Pharmacy 148.1; Estimated Glomerular Filt Rate > 60; Glucose Random 92 mg/dL (60-115); Potassium 4.2 mmol/L (3.3-5.1); Sodium 143 mmol/L (135-145)
--- NOTE | 2023-10-31 10:24 | P.DS_ITS ---
DS: Providers Provider Date of Service: 10/31/23 Date of admission: 10/29/23 14:00 Primary care physician: Unknown Physician Consults: 10/30/23 07:14 Addiction Medicine Routine Consulting Provider: Addiction Covering Reason for consultation: cocaine use Has provider been notified: No DS: Diagnosis Discharge Diagnosis (1) Bronchitis: Status: Acute (2) Rhabdomyolysis: Status: Acute DS: Summary Hospital Course Hospital Course: History and physical as per admitting provider. This is a 32-year-old male with history of PTSD, polysubstance abuse who presents to the emergency department with multiple complaints. The past several days patient has had cough productive of green phlegm and streaked with blood. He has had mild associated shortness of breath, no fever no chills. He denies any recent sick contacts. Also reports generalized weakness and muscle aches as well as decreased appetite. He recently completed a 30 day detox program 2 days ago. Yesterday he used cocaine. He reports left side flank/lower abdominal pain. Denies any nausea, vomiting, diarrhea. Denies any urinary symptoms. In the emergency department he was afebrile, no leukocytosis noted. LFTs were slightly elevated. CPK 9593. Chest x-ray negative for pneumonia. He was given a dose of doxycycline for possible bronchitis and IV fluid due to rhabdomyolysis. For t his reason the decision was made to admit him to the hospital for further management. 32-year-old man treated for acute rhabdomyolysis likely secondary to dehydration and cocaine use. Treated with IV fluids, CPK trended down. Muscle pain much less at this point, patient ambulating. CPK peaked at 6149, down to 1320. Encouraged patient to continue hydration, avoid vigorous exercise for at least a week. Patient also treated for acute bronchitis with no evidence of pneumonia. Treated with doxycycline, will continue for total of 5 day treatment. Flu, RSV and COVID negative. Was sent home with a few more days of [place]. Mental health. Continue medications Normocytic anemia. H&H at baseline, above transfusion threshold Tobacco dependence, discussed importance of smoking cessation. Encouraged nicotine replacement. Time Attestation Discharge Coordination Time (in mins): 40 Quality: Safe Use of Opioids Does Pt have an Active Cancer Diagnosis on the Problem List?: No Quality: Stroke Does the patient have a stroke diagnosis?: No Physical Exam Vital Signs: Vital Signs: Last Vital Signs Temp 97.5 F 10/31/23 07:38 Pulse 63 10/31/23 07:38 Resp 18 10/31/23 07:38 BP 129/85 10/31/23 07:38 Pulse Ox 95 10/31/23 07:38 O2 Del Method Room Air 10/31/23 07:38 BMI result Body Mass Index 29.4 Appearing in no acute distress head is normocephalic atraumatic eyes pupils are PERRLA sclera is anicteric mouth throat mucous membranes are intact and moist neck is supple no lymphadenopathy, no JVD noted lung sounds are clear to auscultation heart regular rate rhythm, clear S1, S2 positive bowel sounds, abdomen is soft, nontender neuro patient is alert x3, no focal deficits DS: Data Data Completed and Pending Labs on day of discharge: Laboratory Results - last 24 hr 10/31/23 08:07 Sodium 143 Potassium 4.2 Chloride 106 Carbon Dioxide 28 Anion Gap 13 BUN 15 Creatinine 0.82 Estim Creat Clear Calc 148.1 Estimated GFR > 60 Random Glucose 92 Calcium 9.4 Total Creatine Kinase 1320 H Discharge Plan Discharge Anticipated Discharge Date/Time: 10/31/23 10:20 Patient Disposition: Home, Self-Care Discharge Diagnosis: Bronchitis Rhabdomyolysis Hemoptysis Discharge Medications: New benzonatate 100 mg Capsule 100 mg PO TID PRN (Reason: Cough) Qty: 9 0RF doxycycline monohydrate 100 mg Capsule 100 mg PO BID Qty: 6 0RF Continued quetiapine 100 mg tablet 100 mg PO BEDTIME baclofen 20 mg tablet 20 mg PO BID clonidine HCl 0.1 mg tablet 0.1 mg PO Q4H PRN (Reason: Anxiety) hydroxyzine HCl 50 mg tablet 50 mg PO QID PRN (Reason: Anxiety) naproxen 500 mg tablet 500 mg PO DAILY PRN (Reason: Headache) gabapentin 800 mg tablet 800 mg PO TID pramipexole 0.125 mg tablet 0.125 mg PO DAILY paroxetine HCl 40 mg tablet 40 mg PO DAILY Rx Instructions: with 20 mg; TDD 60 MG nicotine (polacrilex) 2 mg lozenge 2 mg PO Q2H PRN (Reason: Nicotine Cravings) Rx Instructions: DNE 20/DAY paroxetine HCl 20 mg tablet 20 mg PO DAILY Rx Instructions: with 40 mg; TDD 60 MG methadone 10 mg/mL Concentrate 195 mg PO DAILY nicotine 21 mg/24 hr patch 24 hour 1 patch topical DAILY Qty: 30 0RF prazosin 2 mg capsule 4 mg PO BEDTIME Qty: 60 0RF Discharge Orders: Discharge Order (Routine); Ordered 10/31/23 Ordered By: Kelle Zavaleta Diet: Advance to usual diet Activity on Discharge: As tolerated Print Language: Citizen Of [place] Care Plan Goals: Last methadone dose of 195 mg 10/31/2023 at 08:25 Keep hydrated, drink plenty of fluids Avoid vigorous exercise for at least a week Health Concerns: Bronchitis Rhabdomyolysis Hemoptysis Plan of Treatment: Follow-up with primary care provider as needed Take all medications as prescribed Assessment: Discharge summary Patient Instructions: Acute Bronchitis (ED)
--- NOTE | 2023-10-31 11:03 | MHC.CM.PN ---
Patient is discharged today. He is discharged self-care. He will return to his friend's home. The patient has arranged for transportation home.
--- NOTE | 2023-10-31 14:06 | MHC.RECOVRN ---
Met with pt in 360 prior to discharge after consult placed to Addiction Medicine for cocaine use. Pt had presented to the ED reporting productive cough x 2 weeks, feeling unwell, and abdominal pain that began 2 days prior to arrival. Upon evaluation, pt admitted for rhabdomyolysis in the setting of cocaine use. Pt sitting in bed, awake, alert, engages in conversation. Pt reports cocaine use, 1 gram daily, IV. Pt is currently taking Baclofen for stimulant cravings, states it is somewhat effective. Pt is currently receiving methadone, 195 mg daily, through [facility]. Pt reports last opioid use was 6 years ago. Pt reports benzodiazepine use, approx 2 10 mg Valium daily, IN. Pt reports he felt some bzo withdrawal while here but states my methadone helps with it. Pt reports he was recently at [facility] and then [facility]. Pt reports he was unable to be placed into further treatment and was discharged from [facility]. Pt is interested in getting back into treatment, specifically [facility]. Educated pt on inability to place from med floor as he has been admitted for 2 days. Pt plans to follow up with [facility] outpatient. Discussed other medications for stimulant use disorder, pt interested and will follow up with [facility] (who currently prescribe the Baclofen). Educated pt on other recovery support options and resources, pt declines referrals at this time. Pt provided with written resources and t/w contact information if needed. Pt plans to call [facility] this afternoon. Pt denies other questions or concerns for t/w. Discussed with Kailey Bailey APRN.
== END 2023-10-31 13:14 | disposition home or self-care (01) | DRG 816 ==
LOC: HO.ED 09:41 → HO.EDOVER 14:05 → HO.S3 17:27
PROVIDERS: Emergency Medicine; Physician Assistant; Admitting Provider Physician Assistant Medical; Emergency Provider Emergency Medicine; Visit Provider Nurse Practitioner Acute Care
DX: T40.5X1A Poisoning by cocaine, accidental (unintentional), initial encounter (principal); N17.9 Acute kidney failure, unspecified; M62.82 Rhabdomyolysis; R04.2 Hemoptysis; J20.9 Acute bronchitis, unspecified; D64.9 Anemia, unspecified; F14.20 Cocaine dependence, uncomplicated; F11.20 Opioid dependence, uncomplicated; F17.210 Nicotine dependence, cigarettes, uncomplicated; Z71.6 Tobacco abuse counseling; Z20.822 Contact with and (suspected) exposure to COVID-19; F19.10 Other psychoactive substance abuse, uncomplicated; Z79.899 Other long term (current) drug therapy
CPT/HCPCS: 0241U; 36415; 71046; 74177; 80048; 80053; 80076; 80307; 82550; 83690; 85025; 99285; J7120; Q9967

== ENCOUNTER → 2023-10-29 14:00 | Outpatient (BNV) | payer OTHER, SELFPAY | PROVIDERS: Admitting Provider Physician Assistant Medical; Emergency Provider Emergency Medicine; Visit Provider Physician Assistant Medical | DX: M62.82 Rhabdomyolysis (principal); J40 Bronchitis, not specified as acute or chronic; T79.6XXA Traumatic ischemia of muscle, initial encounter | CPT/HCPCS: 99222; 99232; 99239 ==

== ENCOUNTER 2023-11-16 14:08 | Inpatient (IN) | payer OTHER, SELFPAY ==
[2023-11-16 14:11] VITALS: BP 142/72; PULSE 97; RESP 16; TEMP 36.2; O2SAT 96; BMI 30.8
--- NOTE | 2023-11-16 14:12 | ED.PSYCH ---
HPI - Psych General Chief Complaint: Psychiatric Symptoms Stated Complaint: suicidal thoughts Time Seen by Provider: 11/16/23 14:32 Source: patient and old records reviewed Mode of arrival: ambulatory Limitations: no limitations History of Present Illness ED Provider: PAM PARKER Narrative: 32 yo male with PMH of IVDA and ETOH abuse here with c/o depression, SI and plan to overdose. He lost his medications and has not taken them in 3 days. He last dosed with his methadone about 2 days ago. MD complaint: suicidal ideation and feels depressed Onset (ago): day(s) (2) Duration: getting worse History of same: Yes Relieving factors: none Exacerbating factors: alcohol and drug use Context: recent alcohol abuse, recent drug abuse and not taking psychiatric medications Associated psychiatric symptoms: depression and suicidal ideation Associated symptoms: denies other symptoms Treatments prior to arrival: none If self harm: admits thoughts of self harm and has plan Related Data Home Medications ?Medication ?Instructions ?Recorded ?Confirmed methadone 10 mg/mL oral concentrate 195 mg PO DAILY 12/01/22 10/29/23 baclofen 20 mg tablet 20 mg PO BID 07/20/23 10/29/23 clonidine HCl 0.1 mg tablet 0.1 mg PO Q4H PRN Anxiety 07/20/23 10/29/23 hydroxyzine HCl 50 mg tablet 50 mg PO QID PRN Anxiety 07/20/23 10/29/23 naproxen 500 mg tablet 500 mg PO DAILY PRN Headache 07/20/23 10/29/23 quetiapine 100 mg tablet 100 mg PO BEDTIME 07/20/23 10/29/23 gabapentin 800 mg tablet 800 mg PO TID 10/29/23 10/29/23 nicotine (polacrilex) 2 mg buccal 2 mg PO Q2H PRN Nicotine Cravings 10/29/23 10/29/23 lozenge paroxetine HCl 20 mg tablet 20 mg PO DAILY 10/29/23 10/29/23 paroxetine HCl 40 mg tablet 40 mg PO DAILY 10/29/23 10/29/23 pramipexole 0.125 mg tablet 0.125 mg PO DAILY 10/29/23 10/29/23 Previous Rx's ?Medication ?Instructions ?Recorded nicotine 21 mg/24 hr daily 1 patch topical DAILY #30 [facility] 12/06/22 transdermal patch prazosin 2 mg capsule 4 mg (2 x 2 mg) PO BEDTIME #60 [facility] 12/06/22 benzonatate 100 mg capsule 100 mg PO TID PRN Cough #9 caps 10/31/23 doxycycline monohydrate 100 mg 100 mg PO BID #6 [facility] 10/31/23 capsule Allergies Allergy/AdvReac Type Severity Reaction Status Date / Time amoxicillin Allergy Hives Verified 11/16/23 14:12 Penicillins [PCN] Allergy Hives Verified 11/16/23 14:12 seafood Allergy Difficulty Verified 11/16/23 14:12 Breathing Review of Systems Review of Systems: Constitutional : No Fever, No Chills ENT/Mouth : No Ear Pain, No Nasal Congestion, No sore throat Eyes: No Eye Pain, No Swelling, No Redness Cardiovascular : No Chest Pain, No SOB Respiratory : No Cough, No Sputum, No Dyspnea Gastrointestinal : No Nausea, No Vomiting, No Diarrhea, No Hematochezia, No Melena Genitourinary : No Dysuria, No Urinary Frequency, No Hematuria Musculoskeletal : No Myalgias Skin : No Skin Lesions, No rash Neuro : No Weakness, No Numbness, No Paresthesias, No Dizziness, No Headache Psych : positive Anxiety, positive Depression, positive SI no HI Heme/Lymph: No Lymphadenopathy Endocrine : No Polyuria, No Polydipsia All other systems reviewed and are negative [facility] Past Medical History Attestation statement: The following information was validated with the patient. Source: old records reviewed Medical History Cocaine use disorder, moderate, dependence Mood disorder PTSD (post-traumatic stress disorder) Polysubstance (including opioids) dependence, daily use Social History Social History Household Members: Other Household Members Other:: homeless Housing: Homeless Do you presently have visiting nurse or other home services: No Unable to assess alcohol history related to: Unknown Alcohol intake: current Alcohol intake frequency: does not drink Alcohol type: hard liquor Comment: 1:1 sitter Patient Tobacco Use Status: Current everyday Tobacco user Tobacco use type: Cigarette Cigarette Packs Per Day: 1.5 Cigarettes Per Day: 1.5 Years Smoked: 20 e-Cigarette/Vaping Use: Former Use Second Hand Smoke Exposure: No Substance Use Type: Crack/Cocaine and Marijuana Advance Directives: No Advance Directives Information Provided: No service: No Current occupational status: unemployed Sexual orientation: Straight/Heterosexual Physical Exam Vital Signs: Vital Signs: Last Vital Signs Temp 97.1 F 11/16/23 14:11 Pulse 97 11/16/23 14:11 Resp 16 11/16/23 14:11 BP 142/72 H 11/16/23 14:11 Pulse Ox 96 11/16/23 14:11 O2 Del Method Room Air 11/16/23 14:11 BMI result Body Mass Index 30.8 Appearance: Alert. Oriented X3. No acute distress. Eyes: Pupils equal, round and reactive to light. ENT: Pharynx normal. Neck: Normal inspection. Neck supple. CVS: Normal heart rate and rhythm. Pulses normal. Respiratory: No respiratory distress. Breath sounds normal. Abdomen: Soft and nontender. Skin: Skin warm and dry. Normal skin color. Normal skin turgor. Extremities: No lower extremity edema. No calf ttp Neuro: Oriented X 3. No motor deficit. No sensory deficit. CN2-12intact Course Course Course Narrative: This is a rapid medical exam performed by Yasir Da Silva NP: Additional HPI, ROS, PE not included below will be deferred to primary provider. Patient is a 32-year-old male presenting to the ED with complaint of suicidal ideation, states has been trying to intentionally overdose for the past 3 days on cocaine and heroin. Has not slept. Lost his medications, so has not taken them for several days. Last used around 3am today. Denies any homicidal ideation. Calm and cooperative in triage. Plan: Will need med clearance then CARE team eval Medical Decision Making Medical Decision Making [facility] Narrative: 32 yo male with PMH of IVDA and ETOH abuse here with c/o SI in setting of no medications and substance abuse at this time labs and CARE team consult ordered, he has no medical complaints, CIWA and PRN ativan ordered Differential Diagnosis Differential Diagnoses: The differential diagnosis associated with the presentation includes substance abuse, ETOH abuse, SI Admission/Observation Consideration of admission/observation: Escalation of care including admission/observation considered physician observation started at 255pm pending CARE team Consult Healthcare Provider Management of the patient was discussed with: Behavioral Health Provider Lab Data [facility] Lab Attestation statement: I reviewed the patient's lab results. 11/16/23 14:30 11/16/23 14:30 Labs: Lab Results 11/16/23 Range/Units 14:30 WBC 9.8 (4.8-10.8) X10*3/uL RBC 4.76 (4.60-5.80) X10*6/uL Hgb 13.1 L (14.0-18.0) g/dl Hct 40.1 L (42.0-52.0) % MCV 84.2 (80.0-98.0) fL MCH 27.5 (27.0-33.0) pg MCHC 32.7 (31.0-36.0) g/dl RDW 15.2 (11.0-16.0) % Plt Count 215 D (160-400) X10*3/uL MPV 10.7 (9.4-12.4) fL Immature Gran % (Auto) 0.5 H (0.0-0.4) % Neut % (Auto) 74.6 H (45-73) % Lymph % (Auto) 12.0 L (20-40) % [place] % (Auto) 7.9 (2-11) % Eos % (Auto) 4.4 H (0-4) % Baso % (Auto) 0.6 (0-2) % Lymph # (Auto) 1.2 (1.2-4.9) X10*3/uL [place] # (Auto) 0.8 (0.1-1.2) X10*3/uL Eos # (Auto) 0.4 (0.0-0.4) X10*3/uL Baso # (Auto) 0.1 (0.0-0.2) X10*3/uL Abs Immat Gran (auto) 0.05 H (0.00-0.03) X10*3/uL Absolute Neuts (auto) 7.3 (2.0-8.3) x10*3/uL Absolute Nucleated RBC 0.000 (0.0-0.012) X10*3/uL Nucleated RBC % (auto) 0.0 (0.0-0.2) /100WBC External Record Review External record reviewed: Inpatient record Social Determinants Patient?s care significantly limited by Social Determinants of Health including: Problems related to primary support group Discharge Plan Discharge Clinical Impression: Suicidal ideation, Opioid use disorder, moderate, dependence Patient Disposition: Still a Patient Prescriptions: No Action quetiapine 100 mg tablet 100 mg PO BEDTIME baclofen 20 mg tablet 20 mg PO BID clonidine HCl 0.1 mg tablet 0.1 mg PO Q4H PRN (Reason: Anxiety) hydroxyzine HCl 50 mg tablet 50 mg PO QID PRN (Reason: Anxiety) naproxen 500 mg tablet 500 mg PO DAILY PRN (Reason: Headache) gabapentin 800 mg tablet 800 mg PO TID pramipexole 0.125 mg tablet 0.125 mg PO DAILY paroxetine HCl 40 mg tablet 40 mg PO DAILY Rx Instructions: with 20 mg; TDD 60 MG nicotine (polacrilex) 2 mg lozenge 2 mg PO Q2H PRN (Reason: Nicotine Cravings) Rx Instructions: DNE 20/DAY paroxetine HCl 20 mg tablet 20 mg PO DAILY Rx Instructions: with 40 mg; TDD 60 MG benzonatate 100 mg Capsule 100 mg PO TID PRN (Reason: Cough) Qty: 9 0RF doxycycline monohydrate 100 mg Capsule 100 mg PO BID Qty: 6 0RF methadone 10 mg/mL Concentrate 195 mg PO DAILY nicotine 21 mg/24 hr patch 24 hour 1 patch topical DAILY Qty: 30 0RF prazosin 2 mg capsule 4 mg PO BEDTIME Qty: 60 0RF Print Language: Tunisian
[2023-11-16 14:35] LABS: MANUAL DIFF FLAG NO
[2023-11-16 14:37] LABS: Basophils Absolute Auto 0.1 X10*3/uL (0.0-0.2); Basophils Percent Auto 0.6 % (0-2); Eosinophils Absolute Auto 0.4 X10*3/uL (0.0-0.4); Eosinophils Percent Auto 4.4 % (0-4); Hematocrit 40.1 % (42.0-52.0); Hemoglobin 13.1 g/dl (14.0-18.0); Imm Gran Abs Auto 0.05 X10*3/uL (0.00-0.03); Imm Gran Pct Auto 0.5 % (0.0-0.4); Lymphocytes Absolute Auto 1.2 X10*3/uL (1.2-4.9); Mean Corpuscular HGB Conc 32.7 g/dl (31.0-36.0); Mean Corpuscular Hemoglobin 27.5 pg (27.0-33.0); Mean Corpuscular Volume 84.2 fL (80.0-98.0); Mean Platelet Volume 10.7 fL (9.4-12.4); Monocytes Absolute Auto 0.8 X10*3/uL (0.1-1.2); Monocytes Percent Auto 7.9 % (2-11); Neutrophils Absolute Auto 7.3 x10*3/uL (2.0-8.3); Neutrophils Percent Auto 74.6 % (45-73); Platelet Count 215 X10*3/uL (160-400); Red Blood Count 4.76 X10*6/uL (4.60-5.80); Red Cell Distribution Width 15.2 % (11.0-16.0); White Blood Count 9.8 X10*3/uL (4.8-10.8)
[2023-11-16 14:56] LABS: Alanine Aminotransferase 46 U/L (0-40); Albumin Level 4.8 g/dL (3.5-5.0); Alkaline Phosphatase 82 U/L (39-117); Anion Gap 21 (12-20); Aspartate Amino Transferase 52 U/L (5-37); Bilirubin Total 0.8 mg/dL (0.0-1.0); Blood Urea Nitrogen 29 mg/dL (9-16); Calcium 10.1 mg/dL (8.4-10.2); Carbon Dioxide 21 mmol/L (22-29); Chloride 103 mmol/L (96-108); Creatinine Clr Calc Pharmacy 144.4; Estimated Glomerular Filt Rate > 60; Ethanol < 10 mg/dL; Glucose Random 109 mg/dL (60-115); Sodium 141 mmol/L (135-145); Total Protein 8.8 g/dL (6.5-8.0)
[2023-11-16 15:06] LABS: COVID-19 Test Negative (Negative); IDNOW Serial# 08D9AD1C
[2023-11-16 15:13] LABS: Appearance Urine Cloudy; Color Urine Dark Yellow; Glucose Urine UA Negative (Negative); Leukocyte Esterase Urine Negative (Negative); Nitrite Urine Negative (Negative); PH 5.5 (5.0-9.0); Specific Gravity - Urine >= 1.030 (1.005-1.025); UMIC TRIGGER UACC YES; Urine Blood Negative (Negative); Urine Ketones 15 mg/dL (Negative); Urine Protein 30 (1+) mg/dL (Neg-Trace)
[2023-11-16 15:16] LABS: Amphetamine Screen Urine Not Detected (Not Detect); Barbiturates, Urine Not Detected (Not Detect); Benzodiazepines Screen Urine POSITIVE (Not Detect); Buprenorphine Scr Not Detected (Not Detect); Cannabinoid Screen Urine POSITIVE (Not Detect); Cocaine Screen Urine POSITIVE (Not Detect); Fentanyl, urine POSITIVE (Not Detect); Methadone Screen, Urine Positive (Not Detect); Opiate Screen Urine Not Detected (Not Detect); Oxycodone Screen Urine Not Detected (Not Detect); Phencyclidine Screen Urine Not Detected (Not Detect)
[2023-11-16 15:32] LABS: Bacteria Urine None Seen (None Seen); RBC Urine 0-2 /HPF (0-2); WBC Urine 0-5 /HPF (0-5)
[2023-11-16 15:39] VITALS: BP 142/72; PULSE 97; RESP 16; TEMP 36.2; O2SAT 96
[2023-11-16] MEDS: LORazepam 1 MG TABLET 2 MG PO ×2 (16:11→23:36)
[2023-11-16] MEDS: Nicotine Polacrilex 2 MG GUM BUCCAL ×3 (16:11→23:38)
--- NOTE | 2023-11-16 16:26 | PC.NURSE ---
PT self [place] [facility] [place] voluntary basis seeking treatment due to suicidal ideations with plan of overdose. The patient was brought to the pod and was changed into hospital attire and belongings were inventoried by security. The patient is calm and cooperative with staff. The patient continues to endorse suicidal ideations with plan to overdose, patient did not specify if on medications or narcotics. The patient denies homicidal ideations as well as denies auditory and visual hallucinations. The patient endorses Smoking 1/2 pack of cigarettes per day Approx. 10 shots of liquor per day - daily drinker Using cocaine, heroin and marijuana CIWA Q4H with PRN medications ordered per MD.
[2023-11-16] MEDS: methADONE HCl 20 MG/2 ML ORAL.CONC 75 MG PO (16:38)
--- NOTE | 2023-11-16 19:20 | PC.NURSE ---
Patient came with last dose letter from [facility]. Just to confirm the last dose letter, facility called at [phone] to verify last dose letter, spoke with Betsy who confirmed the last dose letter, methadolola verification paper work completed/pharmacy notified and faxed, provider notified/awaiting order.
--- NOTE | 2023-11-16 19:20 | HE.PHANOTE ---
Methadone verified 195 mg via [facility]
[2023-11-16] MEDS: Gabapentin 400 MG CAPSULE 800 MG PO (19:31)
[2023-11-16] MEDS: QUEtiapine Fumarate 100 MG TABLET PO (19:31)
[2023-11-16] MEDS: methADONE HCl 20 MG/2 ML ORAL.CONC 120 MG PO (19:31)
[2023-11-16 19:32] VITALS: BP 146/88
[2023-11-16] MEDS: Prazosin HCL 1 MG CAPSULE 4 MG PO (19:32)
[2023-11-16 19:43] VITALS: BP 146/88; PULSE 80; RESP 18; TEMP 36.7; O2SAT 97
[2023-11-16 23:05] VITALS: BP 120/66; PULSE 95; RESP 18; TEMP 36.7; O2SAT 95
[2023-11-16] MEDS: traZODone HCL 50 MG TABLET PO (23:36)
[2023-11-16] MEDS: Baclofen 20 MG TABLET PO (23:36)
--- NOTE | 2023-11-17 00:43 | PC.ADMIT ---
Patient admitted to from [facility] pod on 11/16/2023 at 2305 for increased depression/ SI with plan to overdose. Patient reports being off his medications for approx. 3 days after losing them. History of multiple inpatient hospitalizations, and one prior suicide attempt in 2016. Patient also has an outstanding history with substance abuse. He is currently enrolled in methadone maintenance, also utilizing heroin, and drinking around 13 nips per day.Toxicology came back positive for methadone, fentanyl, benzo?s, cocaine and marijuana. Reports smoking ~30 cigarettes per day. Upon arrival to unit, patient calm and cooperative with admission process. Vital signs and skin check completed, consents signed. Patient currently denying SI/HI/AH/VH. Med compliant.
[2023-11-17 08:00] VITALS: BP 107/52; PULSE 86; RESP 17; TEMP 36.9; O2SAT 92
[2023-11-17] MEDS: Gabapentin 400 MG CAPSULE 800 MG PO ×3 (08:43→20:25)
[2023-11-17] MEDS: PARoxetine HCL 20 MG TABLET PO (08:43)
[2023-11-17] MEDS: Pramipexole Di-HCL 0.125 MG TABLET PO (08:43)
[2023-11-17] MEDS: Nicotine 21 MG PATCH.TD24 TRANSDERMA (08:44)
[2023-11-17] MEDS: Baclofen 20 MG TABLET PO ×2 (08:44→20:25)
[2023-11-17] MEDS: methADONE HCl 20 MG/2 ML ORAL.CONC 195 MG PO (08:45)
[2023-11-17] MEDS: LORazepam 1 MG TABLET 2 MG PO ×3 (08:54→20:25)
[2023-11-17] MEDS: hydrOXYzine HCL 25 MG TABLET PO (08:54)
[2023-11-17] MEDS: Acetaminophen 325 MG TABLET 650 MG PO (09:00)
[2023-11-17] MEDS: Nicotine Polacrilex 2 MG GUM BUCCAL ×5 (09:00→22:15)
[2023-11-17 09:16] LABS: Alanine Aminotransferase 36 U/L (0-40); Albumin Level 4.2 g/dL (3.5-5.0); Alkaline Phosphatase 82 U/L (39-117); Anion Gap 15 (12-20); Aspartate Amino Transferase 33 U/L (5-37); Bilirubin Total 0.3 mg/dL (0.0-1.0); Blood Urea Nitrogen 28 mg/dL (9-16); Calcium 9.7 mg/dL (8.4-10.2); Carbon Dioxide 28 mmol/L (22-29); Chloride 102 mmol/L (96-108); Cholesterol 367 mg/dL (<200); Creatinine Clr Calc Pharmacy 157.2; Estimated Glomerular Filt Rate > 60; Glucose Fasting 120 mg/dL (60-99); HDL Cholesterol 49 mg/dL (>40); LDL Cholesterol Calculated 278 mg/dL (<100); Potassium 3.9 mmol/L (3.3-5.1); Sodium 141 mmol/L (135-145); Total Protein 7.6 g/dL (6.5-8.0); Triglycerides 203 mg/dL (<150)
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
[2023-11-17] MEDS: PARoxetine HCL 40 MG TABLET PO (11:22)
[2023-11-17] MEDS: LORazepam 1 MG TABLET PO (12:28)
[2023-11-17 16:26] VITALS: BP 129/77
[2023-11-17] MEDS: hydrOXYzine HCL 50 MG TABLET PO (16:26)
[2023-11-17] MEDS: cloNIDine HCL 0.1 MG TABLET 0.05 MG PO (16:26)
[2023-11-17 19:55] VITALS: BP 124/73; PULSE 91; RESP 18; TEMP 36.5; O2SAT 94
[2023-11-17 20:25] VITALS: BP 124/73
[2023-11-17] MEDS: Prazosin HCL 1 MG CAPSULE 4 MG PO (20:25)
[2023-11-17] MEDS: QUEtiapine Fumarate 100 MG TABLET PO (20:25)
[2023-11-18 08:00] VITALS: BP 105/61; PULSE 75; RESP 18; TEMP 36.4; O2SAT 97
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
[2023-11-18] MEDS: Nicotine 21 MG PATCH.TD24 TRANSDERMA (09:01)
[2023-11-18] MEDS: PARoxetine HCL 20 MG TABLET PO (09:01)
[2023-11-18] MEDS: cloNIDine HCL 0.1 MG TABLET 0.05 MG PO ×3 (09:02→17:01)
[2023-11-18] MEDS: Baclofen 20 MG TABLET PO ×2 (09:02→21:52)
[2023-11-18] MEDS: Pramipexole Di-HCL 0.125 MG TABLET PO (09:02)
[2023-11-18] MEDS: PARoxetine HCL 40 MG TABLET PO (09:02)
[2023-11-18] MEDS: Gabapentin 400 MG CAPSULE 800 MG PO ×3 (09:02→21:51)
[2023-11-18] MEDS: methADONE HCl 20 MG/2 ML ORAL.CONC 195 MG PO (09:02)
[2023-11-18] MEDS: LORazepam 1 MG TABLET PO ×2 (09:11→21:56)
[2023-11-18] MEDS: Nicotine Polacrilex 2 MG GUM BUCCAL ×3 (09:11→21:52)
[2023-11-18 17:01] VITALS: BP 117/75
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
[2023-11-18 19:21] VITALS: BP 132/68; PULSE 77; TEMP 36.8; O2SAT 97
[2023-11-18] MEDS: Prazosin HCL 1 MG CAPSULE 4 MG PO (21:50)
[2023-11-18] MEDS: QUEtiapine Fumarate 100 MG TABLET PO (21:52)
[2023-11-19] MEDS: Nicotine Polacrilex 2 MG GUM BUCCAL ×6 (06:37→22:45)
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
[2023-11-19 09:11] VITALS: BP 131/63; PULSE 83; RESP 16; TEMP 36.7; O2SAT 95
[2023-11-19] MEDS: Nicotine 21 MG PATCH.TD24 TRANSDERMA (09:29)
[2023-11-19] MEDS: PARoxetine HCL 40 MG TABLET PO (09:29)
[2023-11-19] MEDS: methADONE HCl 20 MG/2 ML ORAL.CONC 195 MG PO (09:29)
[2023-11-19] MEDS: Baclofen 20 MG TABLET PO ×2 (09:29→20:18)
[2023-11-19] MEDS: Pramipexole Di-HCL 0.125 MG TABLET PO (09:30)
[2023-11-19] MEDS: PARoxetine HCL 20 MG TABLET PO (09:30)
[2023-11-19] MEDS: Gabapentin 400 MG CAPSULE 800 MG PO ×3 (09:30→20:18)
--- NOTE | 2023-11-19 10:43 | PC.NURSE ---
9am scheduled Clonidine 0.05mg held and provider EH made aware. Medication is not scored and should not be split.
--- NOTE | 2023-11-19 13:31 | PC.NURSE ---
per pharmacy, ok to split clonidine.
[2023-11-19 13:39] VITALS: BP 114/72
[2023-11-19] MEDS: cloNIDine HCL 0.1 MG TABLET 0.05 MG PO ×2 (13:39→18:10)
[2023-11-19 20:00] VITALS: BP 127/81; PULSE 99; RESP 16; TEMP 36.7; O2SAT 97
[2023-11-19 20:18] VITALS: BP 127/81
[2023-11-19] MEDS: QUEtiapine Fumarate 100 MG TABLET PO (20:18)
[2023-11-19] MEDS: diazePAM 5 MG TABLET 10 MG PO (20:18)
[2023-11-19] MEDS: Prazosin HCL 1 MG CAPSULE 4 MG PO (20:18)
[2023-11-19] MEDS: diazePAM 5 MG TABLET PO (20:19)
[2023-11-20] MEDS: Gabapentin 400 MG CAPSULE 800 MG PO ×3 (09:47→20:42)
[2023-11-20] MEDS: PARoxetine HCL 20 MG TABLET PO (09:47)
[2023-11-20] MEDS: PARoxetine HCL 40 MG TABLET PO (09:47)
[2023-11-20] MEDS: Pramipexole Di-HCL 0.125 MG TABLET PO (09:47)
[2023-11-20] MEDS: Baclofen 20 MG TABLET PO ×2 (09:47→20:42)
[2023-11-20] MEDS: Nicotine 21 MG PATCH.TD24 TRANSDERMA (09:47)
[2023-11-20 09:48] VITALS: BP 107/65
[2023-11-20] MEDS: methADONE HCl 20 MG/2 ML ORAL.CONC 195 MG PO (09:48)
[2023-11-20] MEDS: cloNIDine HCL 0.1 MG TABLET 0.05 MG PO ×3 (09:48→18:21)
[2023-11-20] MEDS: diazePAM 5 MG TABLET PO ×2 (09:48→20:42)
[2023-11-20] MEDS: Nicotine Polacrilex 2 MG GUM BUCCAL ×2 (09:55→12:04)
[2023-11-20 12:08] VITALS: BP 128/81; PULSE 95
[2023-11-20 17:10] VITALS: BP 106/58
[2023-11-20 18:21] VITALS: BP 130/76
[2023-11-20] MEDS: Nicotine Polacrilex 2 MG GUM 4 MG BUCCAL ×3 (18:21→22:09)
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
[2023-11-20 20:40] VITALS: BP 136/83
[2023-11-20] MEDS: Prazosin HCL 1 MG CAPSULE 4 MG PO (20:40)
[2023-11-20] MEDS: QUEtiapine Fumarate 100 MG TABLET PO (20:42)
[2023-11-20] MEDS: traZODone HCL 50 MG TABLET PO (20:43)
[2023-11-21 08:29] VITALS: BP 104/50; PULSE 64; RESP 16; TEMP 36.8; O2SAT 94
[2023-11-21] MEDS: PARoxetine HCL 40 MG TABLET PO (09:11)
[2023-11-21] MEDS: methADONE HCl 20 MG/2 ML ORAL.CONC 195 MG PO (09:11)
[2023-11-21] MEDS: PARoxetine HCL 20 MG TABLET PO (09:11)
[2023-11-21] MEDS: Nicotine 21 MG PATCH.TD24 TRANSDERMA (09:11)
[2023-11-21] MEDS: Gabapentin 400 MG CAPSULE 800 MG PO ×3 (09:12→20:01)
[2023-11-21] MEDS: Pramipexole Di-HCL 0.125 MG TABLET PO (09:12)
[2023-11-21] MEDS: diazePAM 5 MG TABLET PO (09:13)
[2023-11-21] MEDS: Baclofen 20 MG TABLET PO ×2 (09:14→20:01)
[2023-11-21] MEDS: Nicotine Polacrilex 2 MG GUM 4 MG BUCCAL ×4 (09:52→20:03)
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
[2023-11-21 13:08] VITALS: BP 128/71
[2023-11-21] MEDS: cloNIDine HCL 0.1 MG TABLET 0.05 MG PO ×2 (13:08→16:11)
[2023-11-21 16:11] VITALS: BP 139/82
[2023-11-21 16:14] VITALS: BP 139/82; PULSE 95
[2023-11-21 20:00] VITALS: BP 120/69; PULSE 80; RESP 16; TEMP 36.7; O2SAT 96
[2023-11-21] MEDS: Prazosin HCL 1 MG CAPSULE 4 MG PO (20:00)
[2023-11-21] MEDS: traZODone HCL 50 MG TABLET PO (20:01)
[2023-11-21] MEDS: QUEtiapine Fumarate 100 MG TABLET PO (20:01)
[2023-11-22 07:56] VITALS: BP 90/53; PULSE 69; RESP 16; TEMP 36.8; O2SAT 94
[2023-11-22 08:27] VITALS: BP 96/60; PULSE 70
[2023-11-22] MEDS: methADONE HCl 20 MG/2 ML ORAL.CONC 195 MG PO (08:28)
[2023-11-22] MEDS: PARoxetine HCL 40 MG TABLET PO (08:31)
[2023-11-22] MEDS: cloNIDine HCL 0.1 MG TABLET 0.05 MG PO ×2 (08:31→12:00)
[2023-11-22] MEDS: Pramipexole Di-HCL 0.125 MG TABLET PO (08:31)
[2023-11-22] MEDS: Nicotine 21 MG PATCH.TD24 TRANSDERMA (08:31)
[2023-11-22] MEDS: Baclofen 20 MG TABLET PO ×2 (08:31→21:51)
[2023-11-22] MEDS: Gabapentin 400 MG CAPSULE 800 MG PO ×3 (08:31→21:51)
[2023-11-22] MEDS: PARoxetine HCL 20 MG TABLET PO (08:32)
[2023-11-22] MEDS: Nicotine Polacrilex 2 MG GUM 4 MG BUCCAL ×5 (09:36→21:50)
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
[2023-11-22 11:54] VITALS: BP 128/77; PULSE 88
[2023-11-22] MEDS: hydrOXYzine HCL 50 MG TABLET PO ×2 (15:47→21:50)
[2023-11-22 17:43] VITALS: BP 106/63
[2023-11-22] MEDS: cloNIDine HCL 0.1 MG TABLET PO ×2 (17:43→21:51)
[2023-11-22] MEDS: Acetaminophen 325 MG TABLET 650 MG PO (19:45)
[2023-11-22] MEDS: OLANZapine 2.5 MG TABLET PO (19:49)
[2023-11-22 20:00] VITALS: BP 122/90; PULSE 84; RESP 18; TEMP 36.3; O2SAT 97
[2023-11-22] MEDS: QUEtiapine Fumarate 100 MG TABLET PO (21:51)
[2023-11-22] MEDS: Prazosin HCL 1 MG CAPSULE 4 MG PO (21:53)
[2023-11-23 08:00] VITALS: BP 101/60; PULSE 96; RESP 18; TEMP 36.4; O2SAT 97
[2023-11-23] MEDS: Nicotine 21 MG PATCH.TD24 TRANSDERMA (09:10)
[2023-11-23 09:11] VITALS: BP 101/60
[2023-11-23] MEDS: cloNIDine HCL 0.1 MG TABLET PO ×3 (09:11→15:23)
[2023-11-23] MEDS: PARoxetine HCL 20 MG TABLET PO (09:11)
[2023-11-23] MEDS: PARoxetine HCL 40 MG TABLET PO (09:11)
[2023-11-23] MEDS: Pramipexole Di-HCL 0.125 MG TABLET PO (09:11)
[2023-11-23] MEDS: Gabapentin 400 MG CAPSULE 800 MG PO ×3 (09:11→20:27)
[2023-11-23] MEDS: Baclofen 20 MG TABLET PO ×2 (09:11→20:27)
[2023-11-23] MEDS: methADONE HCl 20 MG/2 ML ORAL.CONC 195 MG PO (09:11)
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
[2023-11-23] MEDS: Nicotine Polacrilex 2 MG GUM 4 MG BUCCAL ×5 (09:29→21:48)
[2023-11-23 12:33] VITALS: BP 125/77
[2023-11-23] MEDS: OLANZapine 2.5 MG TABLET PO (12:33)
[2023-11-23] MEDS: Acetaminophen 325 MG TABLET 650 MG PO (14:04)
[2023-11-23 15:23] VITALS: BP 135/71
[2023-11-23 20:00] VITALS: BP 134/77; PULSE 78; RESP 18; O2SAT 98
[2023-11-23 20:27] VITALS: BP 134/77
[2023-11-23] MEDS: Ibuprofen 600 MG TABLET PO (20:27)
[2023-11-23] MEDS: OLANZapine 5 MG TABLET PO (20:27)
[2023-11-23] MEDS: QUEtiapine Fumarate 100 MG TABLET PO (20:27)
[2023-11-23] MEDS: Prazosin HCL 1 MG CAPSULE 4 MG PO (20:27)
[2023-11-23] MEDS: hydrOXYzine HCL 50 MG TABLET PO (20:27)
[2023-11-23] MEDS: Azithromycin 250 MG TABLET 500 MG PO (21:49)
[2023-11-24 07:00] VITALS: BMI 33.3
[2023-11-24] MEDS: methADONE HCl 20 MG/2 ML ORAL.CONC 195 MG PO (09:44)
[2023-11-24] MEDS: PARoxetine HCL 40 MG TABLET PO (09:47)
[2023-11-24] MEDS: Baclofen 20 MG TABLET PO ×2 (09:47→20:51)
[2023-11-24] MEDS: Pramipexole Di-HCL 0.125 MG TABLET PO (09:47)
[2023-11-24] MEDS: PARoxetine HCL 20 MG TABLET PO (09:47)
[2023-11-24] MEDS: Gabapentin 400 MG CAPSULE 800 MG PO ×3 (09:47→20:50)
[2023-11-24] MEDS: Nicotine Polacrilex 2 MG GUM 4 MG BUCCAL ×5 (09:47→23:57)
[2023-11-24] MEDS: Nicotine 21 MG PATCH.TD24 TRANSDERMA (09:47)
[2023-11-24] MEDS: cloNIDine HCL 0.1 MG TABLET PO ×4 (09:47→23:57)
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
[2023-11-24 13:10] VITALS: BP 135/80; PULSE 103
[2023-11-24] MEDS: OLANZapine 5 MG TABLET PO (14:42)
[2023-11-24 18:02] VITALS: BP 131/76
[2023-11-24] MEDS: Docusate Sodium 100 MG CAPSULE PO (18:02)
[2023-11-24 20:45] VITALS: BP 125/70; PULSE 89; TEMP 37.1; O2SAT 97
[2023-11-24] MEDS: Prazosin HCL 1 MG CAPSULE 4 MG PO (20:51)
[2023-11-24] MEDS: Azithromycin 250 MG TABLET PO (20:51)
[2023-11-24] MEDS: QUEtiapine Fumarate 100 MG TABLET PO (20:51)
[2023-11-24 23:57] VITALS: BP 127/76
[2023-11-24] MEDS: hydrOXYzine HCL 50 MG TABLET PO (23:57)
[2023-11-25 08:00] VITALS: BP 116/57; PULSE 66; RESP 16; TEMP 36.4; O2SAT 99
[2023-11-25] MEDS: PARoxetine HCL 20 MG TABLET PO (08:53)
[2023-11-25] MEDS: PARoxetine HCL 40 MG TABLET PO (08:53)
[2023-11-25] MEDS: Baclofen 20 MG TABLET PO (08:54)
[2023-11-25] MEDS: Gabapentin 400 MG CAPSULE 800 MG PO (08:54)
[2023-11-25] MEDS: Pramipexole Di-HCL 0.125 MG TABLET PO (08:54)
[2023-11-25] MEDS: methADONE HCl 20 MG/2 ML ORAL.CONC 195 MG PO (08:55)
[2023-11-25] MEDS: Nicotine 21 MG PATCH.TD24 TRANSDERMA (08:55)
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
[2023-11-25] MEDS: Nicotine Polacrilex 2 MG GUM 4 MG BUCCAL (10:01)
[2023-11-25] MEDS: Naloxone HCl Nasal TAKE HOME 4 MG SPRAY 8 MG NOSTRILALT (10:09)
== END 2023-11-25 11:00 | disposition home or self-care (01) | DRG 751 ==
LOC: HO.ED 14:59 → HO.PM5 21:40
PROVIDERS: Registered Nurse Emergency; Admitting Provider Psychiatry & Neurology Psychiatry; Emergency Provider Emergency Medicine; Visit Provider Psychiatry & Neurology Psychiatry
DX: F33.3 Major depressive disorder, recurrent, severe with psychotic symptoms (principal); R45.851 Suicidal ideations; F10.20 Alcohol dependence, uncomplicated; F11.20 Opioid dependence, uncomplicated; F43.10 Post-traumatic stress disorder, unspecified; F14.20 Cocaine dependence, uncomplicated; F17.210 Nicotine dependence, cigarettes, uncomplicated; Z71.6 Tobacco abuse counseling; Z20.822 Contact with and (suspected) exposure to COVID-19; Z79.899 Other long term (current) drug therapy
CPT/HCPCS: 36415; 80053; 80061; 80307; 81001; 85025; 87635; 99285; S9485

== ENCOUNTER → 2023-11-16 21:30 | Outpatient (BNV) | payer OTHER, SELFPAY | PROVIDERS: Admitting Provider Psychiatry & Neurology Psychiatry; Emergency Provider Emergency Medicine; Visit Provider Psychiatry & Neurology Psychiatry | DX: F33.3 Major depressive disorder, recurrent, severe with psychotic symptoms (principal); F11.20 Opioid dependence, uncomplicated; T40.5X2A Poisoning by cocaine, intentional self-harm, initial encounter; F43.11 Post-traumatic stress disorder, acute; F10.90 Alcohol use, unspecified, uncomplicated | CPT/HCPCS: 90792; 99231; 99232; 99239 ==

== ENCOUNTER 2023-11-26 21:59 | Emergency (ER) | payer OTHER, SELFPAY ==
[2023-11-26 22:01] VITALS: BP 129/78; PULSE 88; RESP 18; TEMP 37.1; O2SAT 98; BMI 33.0
--- NOTE | 2023-11-26 22:45 | ED_ITS ---
HPI - Psych General Chief Complaint: Psychiatric Symptoms Stated Complaint: SI Time Seen by Provider: 11/26/23 22:24 Source: patient Mode of arrival: ambulatory Limitations: no limitations History of Present Illness ED Provider: anastasiia PARKER Narrative: Patient's history of depression PTSD cocaine and alcohol use was admitted M 5 for depression and SI feeling discharged yesterday comes back as feels that he went home early has not taken his medication today still feels same depressed and suicidal without any plan patient does not have a job his left with about a year ago Related Data Home Medications ?Medication ?Instructions ?Recorded ?Confirmed methadone 10 mg/mL oral concentrate 195 mg PO DAILY 12/01/22 11/27/23 Previous Rx's ?Medication ?Instructions ?Recorded azithromycin 250 mg tablet 250 mg PO DAILY 3 days #3 tabs 11/25/23 baclofen 20 mg tablet 20 mg PO BID 30 days #60 tabs 11/25/23 clonidine HCl 0.1 mg tablet 0.1 mg PO TID@0900,1300,1700 11/25/23 Anxiety 30 days #90 tabs docusate sodium 100 mg capsule 100 mg PO BID constipation 30 days 11/25/23 #60 caps gabapentin 800 mg tablet 800 mg PO TID 30 days #90 tabs 11/25/23 hydroxyzine HCl 50 mg tablet 50 mg PO QID PRN Anxiety 30 days 11/25/23 #90 tabs nicotine (polacrilex) 2 mg buccal 2 mg PO Q2H PRN Nicotine Cravings 11/25/23 lozenge 30 days #81 ea nicotine 21 mg/24 hr daily 1 patch topical DAILY PRN nicotine 11/25/23 transdermal patch cravings 30 days #30 ea paroxetine HCl 20 mg tablet 20 mg PO DAILY 30 days #30 tabs 11/25/23 paroxetine HCl 40 mg tablet 40 mg PO DAILY 30 days #30 tabs 11/25/23 pramipexole 0.125 mg tablet 0.125 mg PO DAILY 30 days #30 tabs 11/25/23 prazosin 2 mg capsule 4 mg (2 x 2 mg) PO BEDTIME 30 days 11/25/23 #60 caps quetiapine 100 mg tablet 100 mg PO BEDTIME 30 days #30 tabs 11/25/23 Allergies Allergy/AdvReac Type Severity Reaction Status Date / Time amoxicillin Allergy Hives Verified 11/26/23 22:05 Penicillins [PCN] Allergy Hives Verified 11/26/23 22:05 seafood Allergy Difficulty Verified 11/26/23 22:05 Breathing Review of Systems 2 Review of Systems: Yes all other systems are reviewed and are negative [facility] Past Medical History Medical History MDD (major depressive disorder), recurrent, severe, with psychosis Alcohol use disorder Cocaine use disorder, moderate, dependence Mood disorder PTSD (post-traumatic stress disorder) Polysubstance (including opioids) dependence, daily use Social History Social History Household Members: Friend(s) Household Members Other:: homeless Housing: Unknown / Unable to assess Do you presently have visiting nurse or other home services: No Unable to assess alcohol history related to: Unknown Alcohol intake: current Alcohol intake frequency: 3 or more drinks per day Alcohol type: hard liquor Comment: 1:1 sitter Patient Tobacco Use Status: Current everyday Tobacco user Tobacco use type: Cigarette Cigarette Packs Per Day: 1.5 Cigarettes Per Day: 30 Years Smoked: 20 e-Cigarette/Vaping Use: Former Use Second Hand Smoke Exposure: Yes Substance Use Type: Crack/Cocaine, Heroin, IV Drugs, Marijuana, Opiates, Prescription Drugs, Tranquilizers and Caffiene Advance Directives: No Advance Directives Information Provided: No Do you have a plan to hurt others: No Plan service: No Current occupational status: unemployed Sexual orientation: Straight/Heterosexual Physical Exam 2 Vital Signs: Vital Signs: Last Vital Signs Temp 97.8 F 11/27/23 05:26 Pulse 71 11/27/23 05:26 Resp 17 11/27/23 05:26 BP 115/77 11/27/23 05:26 Pulse Ox 99 11/27/23 05:26 O2 Del Method Room Air 11/27/23 05:26 BMI result Body Mass Index 33.0 Appearance: Alert. Oriented X3. No acute distress. Eyes: PERRLA, No Nystagmus ENT: Pharynx normal. Oral Mucosa moist Neck: Normal inspection. Neck supple. CVS: Normal heart rate and rhythm. Pulses normal. Respiratory: No respiratory distress. Equal air entry bilateral, no wheezing/rales/rhonchi Abdomen: Soft and nontender. Bowel sounds are present, no mass palpable, no CVA tenderness Skin: Skin warm and dry. Normal skin color. Normal skin turgor. Extremities: No lower extremity edema. No calf tenderness psych: Feel depressed no plan for SI no hallucination or delusion Neuro: Oriented X 3. No motor deficit. No sensory deficit.No cerebellar signs , cranial nerves II-XII intact Medications Administered Generic Name Dose Route Start Last Admin Trade Name Freq PRN Reason Stop Dose Admin Baclofen 20 mg 11/27/23 09:00 11/27/23 09:31 Baclofen 20 Mg Tablet PO 20 mg BID BESSIE Administration Clonidine HCl 0.1 mg 11/27/23 09:00 11/27/23 09:30 Clonidine Hcl 0.1 Mg Tablet PO 0.1 mg TID@0900,1300,1700 BESSIE Administration Protocol Docusate Sodium 100 mg 11/27/23 09:00 11/27/23 09:31 Docusate Sodium 100 Mg Capsule PO 100 mg BID BESSIE Administration Gabapentin 800 mg 11/27/23 09:00 11/27/23 09:22 Gabapentin 400 Mg Capsule PO 800 mg TID BESSIE Administration Methadone HCl 195 mg 11/27/23 09:00 11/27/23 09:22 Methadone Hcl 20 Mg/2 Ml Oral.Conc PO 195 mg DAILY BESSIE Administration Nicotine Polacrilex 2 mg 11/27/23 06:47 11/27/23 09:58 Nicotine Polacrilex Lozenge 2 Mg Lozenge BUCCAL 2 mg Q2H PRN Administration Nicotine Cravings Paroxetine HCl 40 mg 11/27/23 09:00 11/27/23 09:30 Paroxetine Hcl 40 Mg Tablet PO 40 mg DAILY BESSIE Administration Medical Decision Making Medical Decision Making [facility] Narrative: Patient has significant depression with SI awaiting for care team to evaluate medically clear 11/27/2023 at 10:16 ,Dr. Kevin Jo's Note Start physician observation at 10:16 I assumed care of this patient from my colleague, Dr. Enrique Link at 07:00. There were no reported incidents on this patient by the overnight staff. Patient was recently discharged from [facility] and presents again with suicidal ideation without a plan.Patient's medications were reconciled and I did order his medications including his outpatient methadone dose. My interpretation the patient's laboratory evaluation is as follows: Normocytic anemia with an H of 11.2 and 33.3-this is chronic. CMP revealed an elevated AST of 73 otherwise was unremarkable. Salicylate and acetaminophen levels were below detectable limits. Alcohol was below detectable limits. Urine drug screen was positive for opiates, methadone, fentanyl, benzodiazepines and cocaine. Patient was medically cleared and I did order a care team consult There were no reported incidents on this patient by the overnight nursing staff.Patient will remain in the emergency department Behavioral Health Unit until disposition can be determined or until patient's symptoms improve over time. Lab Data MDM Lab Attestation statement: I reviewed the patient's lab results. 11/26/23 22:40 11/26/23 22:40 Labs: Lab Results 11/26/23 11/27/23 Range/Units 22:40 05:59 WBC 6.8 (4.8-10.8) X10*3/uL RBC 4.01 L (4.60-5.80) X10*6/uL Hgb 11.2 L (14.0-18.0) g/dl Hct 33.3 L (42.0-52.0) % MCV 83.0 (80.0-98.0) fL MCH 27.9 (27.0-33.0) pg MCHC 33.6 (31.0-36.0) g/dl RDW 15.5 (11.0-16.0) % Plt Count 229 (160-400) X10*3/uL MPV 10.2 (9.4-12.4) fL Immature Gran % (Auto) 0.3 (0.0-0.4) % Neut % (Auto) 53.3 (45-73) % Lymph % (Auto) 31.4 (20-40) % [place] % (Auto) 10.2 (2-11) % Eos % (Auto) 4.4 H (0-4) % Baso % (Auto) 0.4 (0-2) % Lymph # (Auto) 2.1 (1.2-4.9) X10*3/uL [place] # (Auto) 0.7 (0.1-1.2) X10*3/uL Eos # (Auto) 0.3 (0.0-0.4) X10*3/uL Baso # (Auto) 0.0 (0.0-0.2) X10*3/uL Abs Immat Gran (auto) 0.02 (0.00-0.03) X10*3/uL Absolute Neuts (auto) 3.6 (2.0-8.3) x10*3/uL Absolute Nucleated RBC 0.000 (0.0-0.012) X10*3/uL Nucleated RBC % (auto) 0.0 (0.0-0.2) /100WBC Sodium 145 (135-145) mmol/L Potassium 3.8 (3.3-5.1) mmol/L Chloride 103 (96-108) mmol/L Carbon Dioxide 25 (22-29) mmol/L Anion Gap 21 H (12-20) BUN 19 H (9-16) mg/dL Creatinine 0.72 (0.5-1.4) mg/dL Estim Creat Clear Calc 178.2 Estimated GFR > 60 Random Glucose 91 (60-115) mg/dL Calcium 9.5 (8.4-10.2) mg/dL Total Bilirubin 0.5 (0.0-1.0) mg/dL AST 73 H (5-37) U/L ALT 33 (0-40) U/L Alkaline Phosphatase 65 (39-117) U/L Total Protein 7.9 (6.5-8.0) g/dL Albumin 4.6 (3.5-5.0) g/dL Salicylates < 5.0 L (15-30) mg/dL Urine Opiates Screen POSITIVE H (Not Detect) Ur Buprenorphine Scrn Not Detected (Not Detect) ng/mL Ur Oxycodone Screen Not Detected (Not Detect) ng/mL Urine Methadone Screen Positive H (Not Detect) ng/mL Urine Fentanyl Screen POSITIVE H (Not Detect) Acetaminophen < 3 (<30) mcg/mL Ur Barbiturates Screen Not Detected (Not Detect) Ur Phencyclidine Scrn Not Detected (Not Detect) Ur Amphetamines Screen Not Detected (Not Detect) U Benzodiazepines Scrn POSITIVE H (Not Detect) Urine Cocaine Screen POSITIVE H (Not Detect) U Marijuana (THC) Screen Not Detected (Not Detect) Ethyl Alcohol < 10 mg/dL Discharge Plan Discharge Clinical Impression: Depression, Suicidal ideation Patient Disposition: Still a Patient Prescriptions: No Action azithromycin 250 mg Tablet 250 mg PO DAILY 3 Days Qty: 3 0RF docusate sodium 100 mg Capsule 100 mg PO BID 30 Days Qty: 60 1RF Rx Instructions: hold for loose stool clonidine HCl 0.1 mg tablet 0.1 mg PO TID@0900,1300,1700 30 Days Qty: 90 1RF hydroxyzine HCl 50 mg tablet 50 mg PO QID PRN (Reason: Anxiety) 30 Days Qty: 90 1RF baclofen 20 mg tablet 20 mg PO BID 30 Days Qty: 60 1RF gabapentin 800 mg tablet 800 mg PO TID 30 Days Qty: 90 1RF paroxetine HCl 20 mg tablet 20 mg PO DAILY 30 Days Qty: 30 1RF Rx Instructions: with 40 mg; TDD 60 MG nicotine 21 mg/24 hr patch 24 hour 1 patch topical DAILY PRN (Reason: nicotine cravings) 30 Days Qty: 30 0RF nicotine (polacrilex) 2 mg lozenge 2 mg PO Q2H PRN (Reason: Nicotine Cravings) 30 Days Qty: 81 0RF Rx Instructions: DNE 20/DAY quetiapine 100 mg tablet 100 mg PO BEDTIME 30 Days Qty: 30 1RF pramipexole 0.125 mg tablet 0.125 mg PO DAILY 30 Days Qty: 30 1RF paroxetine HCl 40 mg tablet 40 mg PO DAILY 30 Days Qty: 30 1RF Rx Instructions: with 20 mg; TDD 60 MG prazosin 2 mg capsule 4 mg PO BEDTIME 30 Days Qty: 60 1RF methadone 10 mg/mL Concentrate 195 mg PO DAILY Rx Instructions: Last dose letter from [facility] [phone] Interventions: Warren-Suicide Risk Severity Scale Last Done: 11/27/23 08:59 Print Language: Tuvaluan
[2023-11-26 22:46] LABS: MANUAL DIFF FLAG NO
[2023-11-26 22:48] LABS: Basophils Percent Auto 0.4 % (0-2); Eosinophils Absolute Auto 0.3 X10*3/uL (0.0-0.4); Eosinophils Percent Auto 4.4 % (0-4); Hematocrit 33.3 % (42.0-52.0); Hemoglobin 11.2 g/dl (14.0-18.0); Imm Gran Abs Auto 0.02 X10*3/uL (0.00-0.03); Imm Gran Pct Auto 0.3 % (0.0-0.4); Lymphocytes Absolute Auto 2.1 X10*3/uL (1.2-4.9); Lymphocytes Percent Auto 31.4 % (20-40); Mean Corpuscular HGB Conc 33.6 g/dl (31.0-36.0); Mean Corpuscular Hemoglobin 27.9 pg (27.0-33.0); Mean Platelet Volume 10.2 fL (9.4-12.4); Monocytes Absolute Auto 0.7 X10*3/uL (0.1-1.2); Monocytes Percent Auto 10.2 % (2-11); Neutrophils Absolute Auto 3.6 x10*3/uL (2.0-8.3); Neutrophils Percent Auto 53.3 % (45-73); Platelet Count 229 X10*3/uL (160-400); Red Blood Count 4.01 X10*6/uL (4.60-5.80); Red Cell Distribution Width 15.5 % (11.0-16.0); White Blood Count 6.8 X10*3/uL (4.8-10.8)
[2023-11-26 23:04] LABS: Acetaminophen LAB < 3 mcg/mL (<30); Alanine Aminotransferase 33 U/L (0-40); Albumin Level 4.6 g/dL (3.5-5.0); Alkaline Phosphatase 65 U/L (39-117); Anion Gap 21 (12-20); Aspartate Amino Transferase 73 U/L (5-37); Bilirubin Total 0.5 mg/dL (0.0-1.0); Blood Urea Nitrogen 19 mg/dL (9-16); Calcium 9.5 mg/dL (8.4-10.2); Carbon Dioxide 25 mmol/L (22-29); Chloride 103 mmol/L (96-108); Creatinine Clr Calc Pharmacy 178.2; Estimated Glomerular Filt Rate > 60; Ethanol < 10 mg/dL; Glucose Random 91 mg/dL (60-115); Potassium 3.8 mmol/L (3.3-5.1); Salicylate < 5.0 mg/dL (15-30); Sodium 145 mmol/L (135-145); Total Protein 7.9 g/dL (6.5-8.0)
[2023-11-27 05:26] VITALS: BP 115/77; PULSE 71; RESP 17; TEMP 36.6; O2SAT 99
[2023-11-27 06:21] LABS: Amphetamine Screen Urine Not Detected (Not Detect); Barbiturates, Urine Not Detected (Not Detect); Benzodiazepines Screen Urine POSITIVE (Not Detect); Buprenorphine Scr Not Detected (Not Detect); Cannabinoid Screen Urine Not Detected (Not Detect); Cocaine Screen Urine POSITIVE (Not Detect); Fentanyl, urine POSITIVE (Not Detect); Methadone Screen, Urine Positive (Not Detect); Opiate Screen Urine POSITIVE (Not Detect); Oxycodone Screen Urine Not Detected (Not Detect); Phencyclidine Screen Urine Not Detected (Not Detect)
--- NOTE | 2023-11-27 07:35 | PC.NURSE ---
Assumed care of patient at 0645, patient appears to be in no apparent distress this am. Requesting methadone dose. This RN verified that patient's last dose was on 11/24/2023 here at [facility] at 195 mg, verification form sent to pharmacy. patient offers no complaints otherwise Pending care team assessment
--- NOTE | 2023-11-27 07:54 | HE.PHANOTE ---
Addendum entered by [facility] 11/27/23 07:58: dose verified from [facility] [place], from last visit Original Note: METHADONE Dose: 195mg, pt last dose at [facility] on 11/23, per Roseline Gibbons @0944.
[2023-11-27] MEDS: Gabapentin 400 MG CAPSULE 800 MG PO ×3 (09:22→20:37)
[2023-11-27] MEDS: methADONE HCl 20 MG/2 ML ORAL.CONC 195 MG PO (09:22)
[2023-11-27] MEDS: PARoxetine HCL 40 MG TABLET PO (09:30)
[2023-11-27] MEDS: cloNIDine HCL 0.1 MG TABLET PO ×2 (09:30→14:09)
[2023-11-27] MEDS: Docusate Sodium 100 MG CAPSULE PO ×2 (09:31→20:37)
[2023-11-27] MEDS: Baclofen 20 MG TABLET PO ×2 (09:31→20:36)
[2023-11-27] MEDS: Nicotine Polacrilex Lozenge 2 MG LOZENGE BUCCAL ×4 (09:58→21:47)
--- NOTE | 2023-11-27 11:01 | PC.NURSE ---
late entry: this RN called pharmacy for Zithromax, Mirapex and Paxil at about 0840 Called again for missing medications at 0945 Spoke with pharmacy clinical coordinator about missing medications at about 1025 Still waiting for medications to be delivered. Late administrations will be entered
[2023-11-27] MEDS: PARoxetine HCL 20 MG TABLET PO (11:10)
[2023-11-27] MEDS: Azithromycin 250 MG TABLET PO (11:10)
[2023-11-27] MEDS: Pramipexole Di-HCL 0.125 MG TABLET PO (12:01)
[2023-11-27 16:13] VITALS: BP 124/55; PULSE 57; RESP 16; TEMP 36.5; O2SAT 97
--- NOTE | 2023-11-27 19:12 | PC.NURSE ---
patient appears to remain at rest, respirations are even and unlabored patient appears in no distress
[2023-11-27 19:46] VITALS: BP 108/65; PULSE 77; RESP 16; O2SAT 97
[2023-11-27] MEDS: Prazosin HCL 1 MG CAPSULE 4 MG PO (20:37)
[2023-11-27] MEDS: QUEtiapine Fumarate 100 MG TABLET PO (20:37)
[2023-11-28] VITALS (8 sets, daily range): BP systolic 106–120; BP diastolic 67–72; PULSE 65–80; RESP 16–18; TEMP 36.3–36.8; O2SAT 96–99
[2023-11-28] MEDS: Nicotine Polacrilex Lozenge 2 MG LOZENGE BUCCAL ×2 (08:04→11:25)
[2023-11-28] MEDS: methADONE HCl 20 MG/2 ML ORAL.CONC 195 MG PO (08:24)
[2023-11-28] MEDS: Docusate Sodium 100 MG CAPSULE PO (08:28)
[2023-11-28] MEDS: Pramipexole Di-HCL 0.125 MG TABLET PO (08:28)
[2023-11-28] MEDS: Baclofen 20 MG TABLET PO (08:28)
[2023-11-28] MEDS: PARoxetine HCL 40 MG TABLET PO (08:29)
[2023-11-28] MEDS: Gabapentin 400 MG CAPSULE 800 MG PO ×2 (08:29→14:38)
[2023-11-28] MEDS: cloNIDine HCL 0.1 MG TABLET PO ×3 (08:29→16:37)
[2023-11-28] MEDS: PARoxetine HCL 20 MG TABLET PO (08:48)
[2023-11-28] MEDS: Azithromycin 250 MG TABLET PO (08:48)
--- NOTE | 2023-11-28 09:59 | PC.NURSE ---
Pt pleasant, alert and oriented, breathing even and unlabored. Denies pain or complaints at this time.
[2023-11-28] MEDS: Nicotine 21 MG PATCH.TD24 TRANSDERMA (11:25)
--- NOTE | 2023-11-28 11:27 | PC.NURSE ---
pt requesting nicotine patch/lozenge at this time. pt medicated per prn order. pt requesting to increase dosing of lozenge at this time - provider notified/aware.
[2023-11-28] MEDS: hydrOXYzine HCL 50 MG TABLET PO (12:55)
[2023-11-28] MEDS: Nicotine Polacrilex Lozenge 4 MG LOZENGE BUCCAL ×2 (14:50→18:10)
--- NOTE | 2023-11-28 18:55 | PC.NURSE ---
patient appears to remain at rest presently respirations are even and unlabored patient appears in no distress
--- NOTE | 2023-11-28 18:57 | MHC.CARE ---
Per Tanesha, pt has been accepted to [facility] for today 11/28/23. ETA [facility]. Accepting is Dr. Brittany Monique, accepting facility will call for N2N
== END 2023-11-28 20:43 ==
PROVIDERS: Internal Medicine; Emergency Provider Emergency Medicine Emergency Medical Services
DX: F32.A Depression, unspecified (principal); R45.851 Suicidal ideations; F43.10 Post-traumatic stress disorder, unspecified; F14.20 Cocaine dependence, uncomplicated; F33.2 Major depressive disorder, recurrent severe without psychotic features; F19.20 Other psychoactive substance dependence, uncomplicated; F11.20 Opioid dependence, uncomplicated; F17.210 Nicotine dependence, cigarettes, uncomplicated; Z79.899 Other long term (current) drug therapy
CPT/HCPCS: 36415; 80053; 80143; 80179; 80307; 85025; 99285; S9485

== ENCOUNTER 2023-12-19 19:43 | Emergency (ER) | payer OTHER, SELFPAY ==
--- NOTE | 2023-12-19 | ECG_ITS ---
Test Reason : medical cleareance Blood Pressure : / mmHG Vent. Rate : 087 BPM Atrial Rate : 087 BPM P-R Int : 154 ms QRS Dur : 076 ms QT Int : 378 ms P-R-T Axes : 032 019 029 degrees QTc Int : 454 ms Normal sinus rhythm Normal ECG When compared with ECG of 19-JUL-2023 23:36, No significant change was found Referred By: Generic ED Physician Electronically Signed By:Tony Mock
[2023-12-19 19:44] VITALS: BP 115/81; PULSE 98; RESP 20; TEMP 37; O2SAT 97; BMI 31.6
[2023-12-19 20:11] LABS: Basophils Percent Auto 0.4 % (0-2); Eosinophils Absolute Auto 0.1 X10*3/uL (0.0-0.4); Eosinophils Percent Auto 1.6 % (0-4); Hemoglobin 12.7 g/dl (14.0-18.0); Imm Gran Abs Auto 0.08 X10*3/uL (0.00-0.03); Lymphocytes Absolute Auto 1.7 X10*3/uL (1.2-4.9); Lymphocytes Percent Auto 21.7 % (20-40); MANUAL DIFF FLAG NO; Mean Corpuscular HGB Conc 32.6 g/dl (31.0-36.0); Mean Corpuscular Hemoglobin 27.9 pg (27.0-33.0); Mean Corpuscular Volume 85.5 fL (80.0-98.0); Mean Platelet Volume 10.2 fL (9.4-12.4); Monocytes Absolute Auto 0.6 X10*3/uL (0.1-1.2); Monocytes Percent Auto 7.9 % (2-11); Neutrophils Absolute Auto 5.4 x10*3/uL (2.0-8.3); Neutrophils Percent Auto 67.4 % (45-73); Platelet Count 303 X10*3/uL (160-400); Red Blood Count 4.56 X10*6/uL (4.60-5.80); Red Cell Distribution Width 15.1 % (11.0-16.0)
--- NOTE | 2023-12-19 20:15 | ED_ITS ---
HPI - Psych General Chief Complaint: Psychiatric Symptoms Stated Complaint: SI Time Seen by Provider: 12/19/23 20:10 Source: patient Mode of arrival: ambulatory Limitations: no limitations History of Present Illness ED Provider: DR. Roberto HPI Narrative: 32-year-old male came in for evaluation of depression and SI. Patient with past medical history significant for PTSD, depression, auditory hallucination, alcohol use / dependence, cocaine abuse who presented today with depression with SI patient feels depressed because currently he has homeless has no place to live in, andhaving seen his daughter in the father day. patient admitted to use cocaine by sniffing today, declined using alcohol or any other drugs. Patient having suicidal thought without specific plan. Patient had a prior mental health hospitalization for similar presentation. Related Data Home Medications ?Medication ?Instructions ?Recorded ?Confirmed methadone 10 mg/mL oral concentrate 195 mg PO DAILY 12/01/22 11/27/23 Previous Rx's ?Medication ?Instructions ?Recorded azithromycin 250 mg tablet 250 mg PO DAILY 3 days #3 tabs 11/25/23 baclofen 20 mg tablet 20 mg PO BID 30 days #60 tabs 11/25/23 clonidine HCl 0.1 mg tablet 0.1 mg PO TID@0900,1300,1700 11/25/23 Anxiety 30 days #90 tabs docusate sodium 100 mg capsule 100 mg PO BID constipation 30 days 11/25/23 #60 caps gabapentin 800 mg tablet 800 mg PO TID 30 days #90 tabs 11/25/23 hydroxyzine HCl 50 mg tablet 50 mg PO QID PRN Anxiety 30 days 11/25/23 #90 tabs nicotine (polacrilex) 2 mg buccal 2 mg PO Q2H PRN Nicotine Cravings 11/25/23 lozenge 30 days #81 ea nicotine 21 mg/24 hr daily 1 patch topical DAILY PRN nicotine 11/25/23 transdermal patch cravings 30 days #30 ea paroxetine HCl 20 mg tablet 20 mg PO DAILY 30 days #30 tabs 11/25/23 paroxetine HCl 40 mg tablet 40 mg PO DAILY 30 days #30 tabs 11/25/23 pramipexole 0.125 mg tablet 0.125 mg PO DAILY 30 days #30 tabs 11/25/23 prazosin 2 mg capsule 4 mg (2 x 2 mg) PO BEDTIME 30 days 11/25/23 #60 caps quetiapine 100 mg tablet 100 mg PO BEDTIME 30 days #30 tabs 11/25/23 Allergies Allergy/AdvReac Type Severity Reaction Status Date / Time amoxicillin Allergy Hives Verified 12/19/23 19:46 Penicillins [PCN] Allergy Hives Verified 12/19/23 19:46 seafood Allergy Difficulty Verified 12/19/23 19:46 Breathing Review of Systems 2 Review of Systems: All other systems are reviewed and are negative Constitutional: Reports as per HPI and Reports no additional constitutional complaints Eyes: Reports as per HPI and Reports no additional eye complaints Reports system reviewed and no additional complaints, except as documented Cardiovascular: Reports as per HPI and Reports no additional cardiovascular complaints Respiratory: Reports as per HPI and Reports no additional respiratory complaints Gastrointestinal: Reports as per HPI and Reports no additional gastrointestinal complaints Genitourinary: Reports no additional female genitourinary complaints Musculoskeletal: Reports no additional musculoskeletal complaints Skin/Breast: Reports system reviewed and no additional complaints, except as docu Psychiatric: Reports no additional psychiatric complaints Endocrine: Reports no additional endocrine complaints Hematologic/Lymphatic: Reports no additional hematologic/lymphatic complaints Allergic/Immunologic: Reports no additional allergic/immunologic complaints Reports system reviewed and no additional complaints, except as documented and Reports Abnormal speech present [facility] Past Medical History Medical History MDD (major depressive disorder), recurrent, severe, with psychosis Alcohol use disorder Cocaine use disorder, moderate, dependence Mood disorder PTSD (post-traumatic stress disorder) Polysubstance (including opioids) dependence, daily use Social History Social History Household Members: Friend(s) Household Members Other:: homeless Housing: Unknown / Unable to assess Do you presently have visiting nurse or other home services: No Unable to assess alcohol history related to: Unknown Alcohol intake: current Alcohol intake frequency: 3 or more drinks per day Alcohol type: hard liquor Comment: 1:1 sitter Patient Tobacco Use Status: Current everyday Tobacco user Tobacco use type: Cigarette Cigarette Packs Per Day: 1.5 Cigarettes Per Day: 30 Years Smoked: 20 e-Cigarette/Vaping Use: Former Use Second Hand Smoke Exposure: Yes Substance Use Type: Crack/Cocaine, Heroin, IV Drugs, Marijuana, Opiates, Prescription Drugs, Tranquilizers and Caffiene Do you have a plan to hurt others: No Plan service: No Current occupational status: unemployed Sexual orientation: Straight/Heterosexual Physical Exam 2 Vital Signs: Vital Signs: Last Vital Signs Temp 98.6 F 12/19/23 19:44 Pulse 98 12/19/23 19:44 Resp 20 12/19/23 19:44 BP 115/81 12/19/23 19:44 Pulse Ox 97 12/19/23 19:44 O2 Del Method Room Air 12/19/23 19:44 BMI result Body Mass Index 31.6 Vital signs have been reviewed and appear to be correct. Blood pressure elevated. Heart rate normal. Respiratory rate normal. Temperature normal. Oxygen saturation normal. Appearance: Alert. Oriented X3. No acute distress. Head: Normal external exam. Normocephalic. Atraumatic. No Massey signs noted. No raccoon eyes noted Eyes: PERRLA. EOMI. Conjunctiva and sclera normal. Eyelids normal. ENT: TM's Normal. Pharynx normal. Uvula midline. Moist mucous membranes. No trismus noted. No drooling noted. No muffled voice noted. Neck: Normal inspection. Neck supple. FROM. No adenopathy. Thyroid Normal. No meningeal signs. No neck mass noted. CVS: Normal heart rate and rhythm. Heart sound normal. No murmurs noted. Pulses normal throughout. Respiratory: No respiratory distress. Painless inspiration. Breath sounds normal. No wheezes/rales/rhonchi noted. Chest nontender. No accessory muscle usage noted or decreased air movement noted. Abdomen: Soft and nontender. Bowel sounds normal in all 4 quadrants. No distention noted. No organomegaly noted. No visible injury noted. Back: No CVA tenderness. Full range of motion noted. Skin: Skin warm and dry. Normal skin color. Normal skin turgor. No rashes/lesions/lacerations noted. Extremities: No lower extremity edema. Extremities exhibit normal range of motion. Extremities nontender. Neuro: Oriented X 3. Cranial nerve exam: II-XII are grossly intact No motor deficit. No sensory deficit. Reflexes normal. Patient Orientation: Person, Place, Time and Situation, okay hygiene and grooming. Fair eye contact, attentive, no tics or tremors. Level of Consciousness: Awake, Appropriate and Alert Patient Behavior: Appropriate, Guarded, Cooperative and Anxious Mood Description: Constricted, Blunted and Apprehensive Affect Description: Constricted, Blunted and Apprehensive Patient Cognition Impaired: No Ability to Follow Directions: Excellent Speech Pattern: Clear, Appropriate and Spontaneous Speech, nonpressured, spontaneous with regular rate and rhythm, normal volume and prosody. No dysarthria. Memory Description: Intact, Immediate Intact and Short Term Intact Hallucinations: None Delusions: Not Present Thought Process: Intact Thought Content: positive for Suicidal Ideation and denies Homicidal Ideation. Depressive Symptoms: Not present. Judgement and Insight: Limited but adequate. Course Reevaluation(s) Reevaluation #1: depression with SI start physician observation, care team evaluation. Time: 20:20 Medical Decision Making Differential Diagnosis Differential Diagnoses: The differential diagnosis associated with the presentation includes ( Depression, SI, HI, hallucination, medical clearance, substance abuse, electrolyte derangement, severe anemia.) Admission/Observation Consideration of admission/observation: Escalation of care including admission/observation considered Lab Data MDM Lab Attestation statement: I reviewed the patient's lab results. 12/19/23 20:03 12/19/23 20:03 Discharge Plan Discharge Clinical Impression: PTSD (post-traumatic stress disorder), Depression Patient Disposition: Still a Patient Prescriptions: No Action azithromycin 250 mg Tablet 250 mg PO DAILY 3 Days Qty: 3 0RF docusate sodium 100 mg Capsule 100 mg PO BID 30 Days Qty: 60 1RF Rx Instructions: hold for loose stool clonidine HCl 0.1 mg tablet 0.1 mg PO TID@0900,1300,1700 30 Days Qty: 90 1RF hydroxyzine HCl 50 mg tablet 50 mg PO QID PRN (Reason: Anxiety) 30 Days Qty: 90 1RF baclofen 20 mg tablet 20 mg PO BID 30 Days Qty: 60 1RF gabapentin 800 mg tablet 800 mg PO TID 30 Days Qty: 90 1RF paroxetine HCl 20 mg tablet 20 mg PO DAILY 30 Days Qty: 30 1RF Rx Instructions: with 40 mg; TDD 60 MG nicotine 21 mg/24 hr patch 24 hour 1 patch topical DAILY PRN (Reason: nicotine cravings) 30 Days Qty: 30 0RF nicotine (polacrilex) 2 mg lozenge 2 mg PO Q2H PRN (Reason: Nicotine Cravings) 30 Days Qty: 81 0RF Rx Instructions: DNE 20/DAY quetiapine 100 mg tablet 100 mg PO BEDTIME 30 Days Qty: 30 1RF pramipexole 0.125 mg tablet 0.125 mg PO DAILY 30 Days Qty: 30 1RF paroxetine HCl 40 mg tablet 40 mg PO DAILY 30 Days Qty: 30 1RF Rx Instructions: with 20 mg; TDD 60 MG prazosin 2 mg capsule 4 mg PO BEDTIME 30 Days Qty: 60 1RF methadone 10 mg/mL Concentrate 195 mg PO DAILY Rx Instructions: Last dose letter from [facility] [phone] Print Language: Samoan
[2023-12-19 20:30] LABS: Anion Gap 19 (12-20)
[2023-12-19 20:32] LABS: Acetaminophen LAB < 3 mcg/mL (<30); Alanine Aminotransferase 16 U/L (0-40); Albumin Level 4.9 g/dL (3.5-5.0); Alkaline Phosphatase 79 U/L (39-117); Aspartate Amino Transferase 26 U/L (5-37); Bilirubin Total 0.3 mg/dL (0.0-1.0); Blood Urea Nitrogen 32 mg/dL (9-16); Calcium 10.2 mg/dL (8.4-10.2); Carbon Dioxide 24 mmol/L (22-29); Chloride 104 mmol/L (96-108); Creatinine Clr Calc Pharmacy 105.5; Estimated Glomerular Filt Rate > 60; Ethanol < 10 mg/dL; Glucose Random 105 mg/dL (60-115); Potassium 4.1 mmol/L (3.3-5.1); Salicylate < 5.0 mg/dL (15-30); Sodium 143 mmol/L (135-145); Total Protein 8.8 g/dL (6.5-8.0)
--- NOTE | 2023-12-19 21:31 | PC.NURSE ---
Pt ca&ox4, no signs of distress. Pt ambulates with a steady gait. Pt denies pain at this time. Pt requested and given milk. Plan of care ongoing.
--- NOTE | 2023-12-20 01:06 | PC.NURSE ---
Pt requested and given drink. Plan of care ongoing.
[2023-12-20 02:11] LABS: Amphetamine Screen Urine Not Detected (Not Detect); Barbiturates, Urine Not Detected (Not Detect); Benzodiazepines Screen Urine POSITIVE (Not Detect); Buprenorphine Scr Not Detected (Not Detect); Cannabinoid Screen Urine POSITIVE (Not Detect); Cocaine Screen Urine POSITIVE (Not Detect); Fentanyl, urine POSITIVE (Not Detect); Methadone Screen, Urine Positive (Not Detect); Opiate Screen Urine POSITIVE (Not Detect); Oxycodone Screen Urine Not Detected (Not Detect); Phencyclidine Screen Urine Not Detected (Not Detect)
--- NOTE | 2023-12-20 02:15 | PC.NURSE ---
Pt requested and given drink. Plan of care ongoing.
[2023-12-20 06:00] VITALS: BP 111/63; PULSE 55; TEMP 36.9; O2SAT 98
--- NOTE | 2023-12-20 07:57 | PC.NURSE ---
Assumed care of patient at 0645, patient appears to be in no apparent distress this am, resting on bed in 4, respirations even and unlabored. Patient reports that he uses [facility] for his methadone, plan to call facility when they are open at 8. Continue plan of care for CARE team evaluation
--- NOTE | 2023-12-20 08:39 | PC.NURSE ---
per [facility], patient has not been dosed there since December 06. Patient reports he was at [facility] recently and that is where he has been getting dosed. This RN attempted to call twice without answer. [facility] admissions team stated they would call this RN back with a dose at some point today
[2023-12-20 10:06] LABS: Appearance Urine Turbid; Color Urine Dark Yellow; Glucose Urine UA Negative (Negative); Leukocyte Esterase Urine Negative (Negative); Nitrite Urine Negative (Negative); PH 5.5 (5.0-9.0); Specific Gravity - Urine >= 1.030 (1.005-1.025); UMIC TRIGGER UA YES; Urine Blood Negative (Negative); Urine Ketones Trace mg/dL (Negative); Urine Protein 30 (1+) mg/dL (Neg-Trace)
--- NOTE | 2023-12-20 10:20 | HE.PHANOTE ---
Re: Methadone Received Methadone Verification Form from Roseline Gibbons. Received 175mg on 12/18/2023 at [facility].
[2023-12-20 10:22] LABS: Bacteria Urine None Seen (None Seen); Other Crystals Urine Present; RBC Urine 0-2 /HPF (0-2); WBC Urine 0-5 /HPF (0-5)
--- NOTE | 2023-12-20 10:31 | MHC.CARE ---
Pt was accepted to [facility] today 12/20/23 by Katrina. ALICE GUILLORY and the accepting doc is Dr. Smith. The address is [address] [address] Pod RN Pat and CARE Team were notified of placement. [facility] will call to conduct report. Their # is [phone]. Transport will be set up by ED and CARE team will complete sec. 12.
[2023-12-20] MEDS: Nicotine Polacrilex Lozenge 2 MG LOZENGE BUCCAL ×3 (10:40→16:24)
[2023-12-20] MEDS: methADONE HCl 20 MG/2 ML ORAL.CONC 175 MG PO (10:40)
[2023-12-20] MEDS: hydrOXYzine HCL 50 MG TABLET PO (10:40)
--- NOTE | 2023-12-20 10:51 | PC.NURSE ---
patient aware of plan of care for transfer to hospital for behavioral medicine at some point today
[2023-12-20 13:26] VITALS: BP 104/64
[2023-12-20] MEDS: cloNIDine HCL 0.1 MG TABLET PO (13:26)
[2023-12-20 13:29] VITALS: BP 104/64; PULSE 72; RESP 16; TEMP 37.1; O2SAT 97
[2023-12-20 17:19] VITALS: BP 109/67; PULSE 74; RESP 14; TEMP 37.1; O2SAT 99
== END 2023-12-20 17:20 ==
PROVIDERS: Emergency Provider Emergency Medicine
DX: F43.10 Post-traumatic stress disorder, unspecified (principal); F33.1 Major depressive disorder, recurrent, moderate; Z79.899 Other long term (current) drug therapy
CPT/HCPCS: 36415; 80053; 80143; 80179; 80307; 81001; 85025; 93005; 99285; S9485

== ENCOUNTER → 2023-12-19 19:52 | Outpatient (BNV) | payer OTHER, SELFPAY | PROVIDERS: Emergency Provider Emergency Medicine; Visit Provider Internal Medicine Cardiovascular Disease | DX: R45.851 Suicidal ideations (principal); F33.3 Major depressive disorder, recurrent, severe with psychotic symptoms | CPT/HCPCS: 93010 ==

== ENCOUNTER 2023-12-31 10:52 | Inpatient (IN) | payer OTHER, SELFPAY ==
[2023-12-31 10:59] VITALS: BP 128/64; PULSE 113; RESP 18; TEMP 36.9; O2SAT 96; BMI 34.4
[2023-12-31 11:09] VITALS: BP 123/63; PULSE 87; RESP 16; TEMP 35.8; O2SAT 96
--- NOTE | 2023-12-31 11:39 | ED_ITS ---
HPI - General Adult General Chief complaint: Psychiatric Symptoms Stated complaint: Missed Methadone Treatment Time Seen by Provider: 12/31/23 11:12 Source: patient Mode of arrival: ambulatory Limitations: no limitations History of Present Illness ED Provider: Yasmin Gaona HPI narrative: This is a 33 year old male with a history of depression, alcohol use disorder, polysubstance use, PTSD who presents the ER seeking his methadone dose. Patient reports he was recently inpatient for mental health and was released yesterday. Received his last dose of methadone yesterday morning of 175 mg. Patient reports he was discharged to stay with a family member. 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 He is here seeking his methadone dose. He is complaining of feeling depressed, suicidal thoughts with no plan. No homicidal ideations. Patient is seeking to speak to 1 of our social workers. No physical complaints Related Data Home Medications ?Medication ?Instructions ?Recorded ?Confirmed atorvastatin 10 mg tablet 10 mg PO DAILY 12/20/23 12/31/23 chlorpromazine 100 mg tablet 100 mg PO BEDTIME 12/20/23 12/31/23 docusate sodium 100 mg capsule 100 mg PO BID 12/20/23 12/31/23 melatonin 3 mg tablet 3 mg PO BEDTIME PRN Insomnia 12/20/23 12/31/23 naproxen 500 mg tablet 500 mg PO BID 12/20/23 12/31/23 paroxetine HCl 30 mg tablet 30 mg PO DAILY 12/20/23 12/31/23 sennosides 8.6 mg tablet (senna) 17.2 mg PO DAILY 12/20/23 12/31/23 methadone 10 mg/mL oral 175 mg PO DAILY 12/31/23 12/31/23 concentrate (Methadone Intensol) gabapentin 600 mg tablet 600 mg PO TID 01/01/24 01/01/24 Previous Rx's ?Medication ?Instructions ?Recorded baclofen 20 mg tablet 20 mg PO BID 30 days #60 tabs 11/25/23 clonidine HCl 0.1 mg tablet 0.1 mg PO TID@0900,1300,1700 11/25/23 Anxiety 30 days #90 tabs hydroxyzine HCl 50 mg tablet 50 mg PO QID PRN Anxiety 30 days 11/25/23 #90 tabs nicotine (polacrilex) 2 mg buccal 2 mg PO Q2H PRN Nicotine Cravings 11/25/23 lozenge 30 days #81 ea nicotine 21 mg/24 hr daily 1 patch topical DAILY PRN nicotine 11/25/23 transdermal patch cravings 30 days #30 ea pramipexole 0.125 mg tablet 0.125 mg PO DAILY 30 days #30 tabs 11/25/23 prazosin 2 mg capsule 4 mg (2 x 2 mg) PO BEDTIME 30 days 11/25/23 #60 caps quetiapine 100 mg tablet 100 mg PO BEDTIME 30 days #30 tabs 11/25/23 Allergies Allergy/AdvReac Type Severity Reaction Status Date / Time amoxicillin Allergy Hives Verified 12/31/23 11:02 Penicillins [PCN] Allergy Hives Verified 12/31/23 11:02 seafood Allergy Difficulty Verified 12/31/23 11:02 Breathing Review of Systems 2 Review of Systems: Yes all other systems are reviewed and are negative Constitutional: Constitutional: Reports no additional constitutional complaints, Denies body ache(s), Denies chills, Denies fever(s), Denies headache(s) and Denies weakness Eyes: Eyes: Reports no additional eye complaints and Denies change in vision ENT: Reports system reviewed and no additional complaints, except as documented, Denies dizziness, Denies headache(s), Denies nasal congestion, Denies nasal discharge and Denies neck pain Cardiovascular: Cardiovascular: Reports no additional cardiovascular complaints, Denies chest pain, Denies leg edema and Denies dyspnea Respiratory: Respiratory: Reports no additional respiratory complaints, Denies cough and Denies dyspnea Gastrointestinal: Gastrointestinal: Reports no additional gastrointestinal complaints, Denies abdominal pain, Denies diarrhea, Denies nausea and Denies vomiting Genitourinary: Genitourinary: Denies urinary incontinence Musculoskeletal: Musculoskeletal: Reports no additional musculoskeletal complaints, Denies back pain, Denies arthralgias, Denies joint swelling, Denies neck pain, Denies numbness and Denies tingling Integumentary/Breasts: Skin/Breast: Reports system reviewed and no additional complaints, except as docu and Denies rash Neurologic: Reports system reviewed and no additional complaints, except as documented, Denies Abnormal speech present, Denies dizziness, Denies headache(s), Denies numbness, Denies tingling and Denies weakness Psychiatric: Psychiatric: Reports depression, Denies homicidal ideation and Reports suicidal ideation [facility] Past Medical History Attestation statement: The following information was validated with the patient. Source: old records reviewed and nursing notes reviewed Medical History MDD (major depressive disorder), recurrent, severe, with psychosis Alcohol use disorder Cocaine use disorder, moderate, dependence Mood disorder PTSD (post-traumatic stress disorder) Polysubstance (including opioids) dependence, daily use Social History Social History Household Members: Friend(s) Household Members Other:: homeless Housing: Unknown / Unable to assess Do you presently have visiting nurse or other home services: No Unable to assess alcohol history related to: Unknown Alcohol intake: current Alcohol intake frequency: 3 or more drinks per day Alcohol type: hard liquor Comment: 1:1 sitter Patient Tobacco Use Status: Current everyday Tobacco user Tobacco use type: Cigarette Cigarette Packs Per Day: 1.5 Cigarettes Per Day: 30 Years Smoked: 20 e-Cigarette/Vaping Use: Former Use Second Hand Smoke Exposure: Yes Substance Use Type: Crack/Cocaine, Heroin, Marijuana and Opiates Advance Directives: No Advance Directives Information Provided: No Do you have a plan to hurt others: No Plan service: No Current occupational status: unemployed Sexual orientation: Straight/Heterosexual Physical Exam ED Vital Signs: Vital Signs - 24 hr 01/01/24 14:10 01/01/24 20:27 01/01/24 20:34 Temperature 98 F 98.1 F Pulse Rate 81 82 Respiratory Rate 16 16 Blood Pressure 107/70 101/72 101/72 Pulse Oximetry 95 96 Oxygen Delivery Method Room Air Room Air 01/01/24 23:14 Temperature 97.8 F Pulse Rate 75 Respiratory Rate 16 Blood Pressure 113/61 Pulse Oximetry 98 Oxygen Delivery Method Room Air BMI result Body Mass Index 34.4 Const General: cooperative, healthy appearing, comfortable and no acute distress Orientation/consciousness: patient oriented x3 Limitations: no limitations HENMT Head: Yes normal to inspection Ears: hearing grossly normal bilaterally General nose exam: Normal external nose present Face and sinus: Yes normal facial exam Mouth: Normal oral and palatal mucosa present Throat: Yes posterior oropharynx normal Eyes General: appearance normal, both eyes and all related structures Pupils: Equal, round and reactive pupils present Neck Neck: Yes normal visual inspection Chest Chest palpation & inspection: normal inspection of the chest Resp Effort & Inspection: normal respiratory effort Auscultation: clear to auscultation bilaterally Cardio Rate: regular rate Rhythm: regular rhythm Peripheral pulses: Peripheral pulses 2+ throughout GI Inspection: Yes normal to inspection Palpation (GI): Soft to palpation and nontender Auscultation: normal bowel sounds Back/Spine/Pelvis Thoracic/Lumbar Spine: thoracic and lumbar spine normal to inspection Skin General skin exam: no rashes or lesions noted Neuro General: patient oriented x3, no focal motor deficits and normal sensation to monofilament Cranial nerves: Yes Equal, round and reactive pupils present Cognition (Neuro): normal cognition Speech: No Abnormal speech present Gait exam (Neuro): Normal gait present Motor exam (neuro): 5/5 motor strength present throughout Extrem General: Yes normal to inspection Course Course Course Narrative: Placed in physician observation pending disposition Reevaluation(s) Reevaluation #1: stable overnight we are waiting for reevalution by crisis team, Time: 07:14 Reevaluation #2: 01/02/24 Stable clinically no event overnight continue bed search Time: 07:11 Medications Administered Generic Name Dose Route Start Last Admin Trade Name Freq PRN Reason Stop Dose Admin Atorvastatin Calcium 10 mg 01/01/24 09:00 01/01/24 08:46 Atorvastatin Calcium 10 Mg Tablet PO Not Given DAILY BESSIE Baclofen 20 mg 12/31/23 21:00 01/01/24 20:34 Baclofen 20 Mg Tablet PO 20 mg BID BESSIE Administration Chlorpromazine HCl 100 mg 12/31/23 21:00 01/01/24 20:34 Chlorpromazine Hcl 100 Mg Tablet PO 100 mg BEDTIME BESSIE Administration Clonidine HCl 0.1 mg 01/01/24 09:00 01/01/24 17:37 Clonidine Hcl 0.1 Mg Tablet PO 0.1 mg TID@0900,1300,1700 BESSIE Administration Protocol Docusate Sodium 100 mg 12/31/23 21:00 01/01/24 20:34 Docusate Sodium 100 Mg Capsule PO 100 mg BID BESSIE Administration Gabapentin 600 mg 01/01/24 21:00 01/01/24 20:55 Gabapentin 600 Mg Tablet PO 600 mg TID BESSIE Administration Hydroxyzine HCl 50 mg 12/31/23 20:12 01/01/24 14:02 Hydroxyzine Hcl 50 Mg Tablet PO 50 mg QID PRN Administration Anxiety Methadone HCl 175 mg 01/01/24 09:00 01/01/24 08:34 Methadone Hcl 20 Mg/2 Ml Oral.Conc PO 175 mg DAILY BESSIE Administration Naproxen 500 mg 12/31/23 21:00 01/01/24 20:33 Naproxen 500 Mg Tablet PO 500 mg BID BESSIE Administration Nicotine 21 mg 12/31/23 20:12 01/01/24 14:06 Nicotine 21 Mg Patch.Td24 TRANSDERMA 21 mg DAILY PRN Administration nicotine cravings Nicotine Polacrilex 2 mg 12/31/23 19:31 01/01/24 12:26 Nicotine Polacrilex 2 Mg Gum BUCCAL 2 mg QID PRN Administration Nicotine Cravings Nicotine Polacrilex 2 mg 12/31/23 20:12 01/01/24 22:43 Nicotine Polacrilex Lozenge 2 Mg Lozenge BUCCAL 2 mg Q2H PRN Administration Nicotine Cravings Paroxetine HCl 30 mg 01/01/24 09:00 01/01/24 08:35 Paroxetine Hcl 30 Mg Tablet PO 30 mg DAILY BESSIE Administration Pramipexole Dihydrochloride 0.125 mg 01/01/24 09:00 01/01/24 08:35 Pramipexole Di-Hcl 0.125 Mg Tablet PO 0.125 mg DAILY BESSIE Administration Prazosin HCl 4 mg 12/31/23 21:00 01/01/24 20:34 Prazosin Hcl 1 Mg Capsule PO 4 mg BEDTIME BESSIE Administration Protocol Quetiapine Fumarate 100 mg 12/31/23 21:00 01/01/24 20:34 Quetiapine Fumarate 100 Mg Tablet PO 100 mg BEDTIME BESSIE Administration Senna 17.2 mg 01/01/24 09:00 01/01/24 08:35 Sennosides 8.6 Mg Tablet PO 17.2 mg DAILY BESSIE Administration Discontinued Medications Generic Name Dose Route Start Last Admin Trade Name Freq PRN Reason Stop Dose Admin Gabapentin 600 mg 01/01/24 14:17 01/01/24 14:27 Gabapentin 600 Mg Tablet PO 01/01/24 14:18 600 mg TID ONE Administration Methadone HCl 175 mg 12/31/23 11:27 12/31/23 12:03 Methadone Hcl 20 Mg/2 Ml Oral.Conc PO 12/31/23 11:28 175 mg ONCE ONE Administration Nicotine Polacrilex 2 mg 12/31/23 14:00 12/31/23 14:19 Nicotine Polacrilex 2 Mg Gum BUCCAL 12/31/23 14:01 2 mg ONCE ONE Administration Medical Decision Making Medical Decision Making [facility] Narrative: This is a 33 year old male with a history of depression, alcohol use disorder, polysubstance use, PTSD who presents the ER seeking his methadone dose. Patient reports he was recently inpatient for mental health and was released yesterday. Received his last dose of methadone yesterday morning of 175 mg. Patient reports he was discharged to stay with a family member. 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 He is here seeking his methadone dose. He is complaining of feeling depressed, suicidal thoughts with no plan. No homicidal ideations. Patient is seeking to speak to 1 of our social workers. No physical complaints No concern for acute ingestion or trauma. Vitals are stable. Methadone dose was ordered. Will order labs, drug screen and care team consultation. patient will be moved to behavioral pod Differential Diagnosis Differential Diagnoses: The differential diagnosis associated with the presentation includes Depression, polysubstance use Admission/Observation Consideration of admission/observation: Escalation of care including admission/observation considered Consult Healthcare Provider Management of the patient was discussed with: Behavioral Health Provider Lab Data [facility] Lab Attestation statement: I reviewed the patient's lab results. 12/31/23 12:15 12/31/23 12:15 Labs: Lab Results 12/31/23 12/31/23 Range/Units 12:08 12:15 WBC 5.2 (4.8-10.8) X10*3/uL RBC 4.30 L (4.60-5.80) X10*6/uL Hgb 11.9 L (14.0-18.0) g/dl Hct 36.2 L (42.0-52.0) % MCV 84.2 (80.0-98.0) fL MCH 27.7 (27.0-33.0) pg MCHC 32.9 (31.0-36.0) g/dl RDW 14.5 (11.0-16.0) % Plt Count 238 (160-400) X10*3/uL MPV 10.8 (9.4-12.4) fL Immature Gran % (Auto) 0.4 (0.0-0.4) % Neut % (Auto) 59.9 (45-73) % Lymph % (Auto) 23.8 (20-40) % [place] % (Auto) 11.1 H (2-11) % Eos % (Auto) 4.2 H (0-4) % Baso % (Auto) 0.6 (0-2) % Lymph # (Auto) 1.2 (1.2-4.9) X10*3/uL [place] # (Auto) 0.6 (0.1-1.2) X10*3/uL Eos # (Auto) 0.2 (0.0-0.4) X10*3/uL Baso # (Auto) 0.0 (0.0-0.2) X10*3/uL Abs Immat Gran (auto) 0.02 (0.00-0.03) X10*3/uL Absolute Neuts (auto) 3.1 (2.0-8.3) x10*3/uL Absolute Nucleated RBC 0.000 (0.0-0.012) X10*3/uL Nucleated RBC % (auto) 0.0 (0.0-0.2) /100WBC Sodium 138 (135-145) mmol/L Potassium 4.0 (3.3-5.1) mmol/L Chloride 100 (96-108) mmol/L Carbon Dioxide 23 (22-29) mmol/L Anion Gap 19 (12-20) BUN 17 H (9-16) mg/dL Creatinine 0.80 (0.5-1.4) mg/dL Estim Creat Clear Calc 162.2 Estimated GFR > 60 Random Glucose 95 (60-115) mg/dL Calcium 9.9 (8.4-10.2) mg/dL Total Bilirubin 0.4 (0.0-1.0) mg/dL Direct Bilirubin 0.1 (0.0-0.5) mg/dL AST 29 (5-37) U/L ALT 18 (0-40) U/L Alkaline Phosphatase 66 (39-117) U/L Total Protein 7.7 (6.5-8.0) g/dL Albumin 4.4 (3.5-5.0) g/dL Urine Color Yellow Urine Appearance Clear Urine pH 8.0 (5.0-9.0) Ur Specific [place] 1.020 (1.005-1.025) Urine Protein Trace (Neg-Trace) mg/dL Urine Glucose (UA) Negative (Negative) mg/dL Urine Ketones Negative (Negative) mg/dL Urine Blood Negative (Negative) Urine Nitrite Negative (Negative) Ur Leukocyte Esterase Negative (Negative) Salicylates < 5.0 L (15-30) mg/dL Urine Opiates Screen Not Detected (Not Detect) Ur Buprenorphine Scrn Not Detected (Not Detect) ng/mL Ur Oxycodone Screen Not Detected (Not Detect) ng/mL Urine Methadone Screen Positive H (Not Detect) ng/mL Urine Fentanyl Screen Not Detected (Not Detect) Acetaminophen < 3 (<30) mcg/mL Ur Barbiturates Screen Not Detected (Not Detect) Ur Phencyclidine Scrn Not Detected (Not Detect) Ur Amphetamines Screen Not Detected (Not Detect) U Benzodiazepines Scrn POSITIVE H (Not Detect) Urine Cocaine Screen POSITIVE H (Not Detect) U Marijuana (THC) Screen POSITIVE H (Not Detect) Ethyl Alcohol < 10 mg/dL Discharge Plan Discharge Clinical Impression: Depression, Opioid use disorder Patient Disposition: Still a Patient Prescriptions: No Action clonidine HCl 0.1 mg tablet 0.1 mg PO TID@0900,1300,1700 30 Days Qty: 90 1RF hydroxyzine HCl 50 mg tablet 50 mg PO QID PRN (Reason: Anxiety) 30 Days Qty: 90 1RF baclofen 20 mg tablet 20 mg PO BID 30 Days Qty: 60 1RF nicotine 21 mg/24 hr patch 24 hour 1 patch topical DAILY PRN (Reason: nicotine cravings) 30 Days Qty: 30 0RF nicotine (polacrilex) 2 mg lozenge 2 mg PO Q2H PRN (Reason: Nicotine Cravings) 30 Days Qty: 81 0RF Rx Instructions: DNE 20/DAY quetiapine 100 mg tablet 100 mg PO BEDTIME 30 Days Qty: 30 1RF pramipexole 0.125 mg tablet 0.125 mg PO DAILY 30 Days Qty: 30 1RF prazosin 2 mg capsule 4 mg PO BEDTIME 30 Days Qty: 60 1RF methadone [Methadone Intensol] 10 mg/mL Concentrate 175 mg PO DAILY gabapentin 600 mg tablet 600 mg PO TID sennosides [senna] 8.6 mg tablet 17.2 mg PO DAILY atorvastatin 10 mg tablet 10 mg PO DAILY chlorpromazine 100 mg tablet 100 mg PO BEDTIME melatonin 3 mg tablet 3 mg PO BEDTIME PRN (Reason: Insomnia) paroxetine HCl 30 mg tablet 30 mg PO DAILY docusate sodium 100 mg capsule 100 mg PO BID naproxen 500 mg tablet 500 mg PO BID Interventions: [place]-Suicide Risk Severity Scale Last Done: 12/31/23 12:08 Print Language: Telugu
--- NOTE | 2023-12-31 11:50 | HE.PHANOTE ---
Received verification letter from previous [facility] to confirm methadone dose.
[2023-12-31] MEDS: methADONE HCl 20 MG/2 ML ORAL.CONC 175 MG PO (12:03)
[2023-12-31 12:23] LABS: MANUAL DIFF FLAG NO
[2023-12-31 12:39] LABS: Amphetamine Screen Urine Not Detected (Not Detect); Barbiturates, Urine Not Detected (Not Detect); Benzodiazepines Screen Urine POSITIVE (Not Detect); Buprenorphine Scr Not Detected (Not Detect); Cannabinoid Screen Urine POSITIVE (Not Detect); Cocaine Screen Urine POSITIVE (Not Detect); Fentanyl, urine Not Detected (Not Detect); Methadone Screen, Urine Positive (Not Detect); Opiate Screen Urine Not Detected (Not Detect); Oxycodone Screen Urine Not Detected (Not Detect); Phencyclidine Screen Urine Not Detected (Not Detect)
[2023-12-31 12:44] LABS: Alanine Aminotransferase 18 U/L (0-40); Albumin Level 4.4 g/dL (3.5-5.0); Alkaline Phosphatase 66 U/L (39-117); Anion Gap 19 (12-20); Aspartate Amino Transferase 29 U/L (5-37); Bilirubin Direct 0.1 mg/dL (0.0-0.5); Bilirubin Total 0.4 mg/dL (0.0-1.0); Blood Urea Nitrogen 17 mg/dL (9-16); Calcium 9.9 mg/dL (8.4-10.2); Carbon Dioxide 23 mmol/L (22-29); Chloride 100 mmol/L (96-108); Creatinine Clr Calc Pharmacy 162.2; Estimated Glomerular Filt Rate > 60; Glucose Random 95 mg/dL (60-115); Sodium 138 mmol/L (135-145); Total Protein 7.7 g/dL (6.5-8.0)
[2023-12-31 12:46] LABS: Acetaminophen LAB < 3 mcg/mL (<30); Ethanol < 10 mg/dL; Salicylate < 5.0 mg/dL (15-30)
[2023-12-31 12:54] LABS: Basophils Percent Auto 0.6 % (0-2); Eosinophils Absolute Auto 0.2 X10*3/uL (0.0-0.4); Eosinophils Percent Auto 4.2 % (0-4); Hematocrit 36.2 % (42.0-52.0); Hemoglobin 11.9 g/dl (14.0-18.0); Imm Gran Abs Auto 0.02 X10*3/uL (0.00-0.03); Imm Gran Pct Auto 0.4 % (0.0-0.4); Lymphocytes Absolute Auto 1.2 X10*3/uL (1.2-4.9); Lymphocytes Percent Auto 23.8 % (20-40); Mean Corpuscular HGB Conc 32.9 g/dl (31.0-36.0); Mean Corpuscular Hemoglobin 27.7 pg (27.0-33.0); Mean Corpuscular Volume 84.2 fL (80.0-98.0); Mean Platelet Volume 10.8 fL (9.4-12.4); Monocytes Absolute Auto 0.6 X10*3/uL (0.1-1.2); Monocytes Percent Auto 11.1 % (2-11); Neutrophils Absolute Auto 3.1 x10*3/uL (2.0-8.3); Neutrophils Percent Auto 59.9 % (45-73); Platelet Count 238 X10*3/uL (160-400); Red Cell Distribution Width 14.5 % (11.0-16.0); White Blood Count 5.2 X10*3/uL (4.8-10.8)
[2023-12-31 12:58] LABS: Appearance Urine Clear; Color Urine Yellow; Glucose Urine UA Negative (Negative); Leukocyte Esterase Urine Negative (Negative); Nitrite Urine Negative (Negative); Urine Blood Negative (Negative); Urine Ketones Negative (Negative); Urine Protein Trace mg/dL (Neg-Trace)
[2023-12-31] MEDS: Nicotine Polacrilex 2 MG GUM BUCCAL ×3 (14:19→22:06)
--- NOTE | 2023-12-31 19:00 | PC.NURSE ---
patient appears to remain at rest at present respirations are even and unlabored patient appears in no distress, watching tv.
[2023-12-31 19:53] VITALS: TEMP 36.6
--- NOTE | 2023-12-31 21:01 | PHA.MEDREC ---
Pharmacy Consult ? Medication Reconciliation Pharmacy has completed the medication reconciliation. Pharmacy has reviewed the med rec done by nursing utilizing last discharge summary from this facility dated 12/20/23 and claims history.
[2023-12-31 21:16] VITALS: BP 118/67; PULSE 77; RESP 16; O2SAT 98
[2023-12-31] MEDS: Docusate Sodium 100 MG CAPSULE PO (21:19)
[2023-12-31] MEDS: NaPROXEN 500 MG TABLET PO (21:20)
[2023-12-31] MEDS: Prazosin HCL 1 MG CAPSULE 4 MG PO (21:20)
[2023-12-31] MEDS: chlorproMAZINE HCl 100 MG TABLET PO (21:20)
[2023-12-31] MEDS: Baclofen 20 MG TABLET PO (21:20)
[2023-12-31] MEDS: QUEtiapine Fumarate 100 MG TABLET PO (21:21)
[2024-01-01] MEDS: methADONE HCl 20 MG/2 ML ORAL.CONC 175 MG PO (08:34)
[2024-01-01] MEDS: Docusate Sodium 100 MG CAPSULE PO ×2 (08:35→20:34)
[2024-01-01] MEDS: Pramipexole Di-HCL 0.125 MG TABLET PO (08:35)
[2024-01-01] MEDS: PARoxetine HCL 30 MG TABLET PO (08:35)
[2024-01-01] MEDS: cloNIDine HCL 0.1 MG TABLET PO ×3 (08:35→17:37)
[2024-01-01] MEDS: Baclofen 20 MG TABLET PO ×2 (08:35→20:34)
[2024-01-01] MEDS: NaPROXEN 500 MG TABLET PO ×2 (08:35→20:33)
[2024-01-01] MEDS: Sennosides 8.6 MG TABLET 17.2 MG PO (08:35)
[2024-01-01] MEDS: Nicotine Polacrilex 2 MG GUM BUCCAL (12:26)
[2024-01-01] MEDS: hydrOXYzine HCL 50 MG TABLET PO (14:02)
[2024-01-01] MEDS: Nicotine 21 MG PATCH.TD24 TRANSDERMA (14:06)
[2024-01-01] MEDS: Nicotine Polacrilex Lozenge 2 MG LOZENGE BUCCAL ×4 (14:07→22:43)
[2024-01-01 14:10] VITALS: BP 107/70; PULSE 81; RESP 16; TEMP 36.6; O2SAT 95
[2024-01-01] MEDS: Gabapentin 600 MG TABLET PO ×2 (14:27→20:55)
--- NOTE | 2024-01-01 15:29 | P.EN_ITS ---
Documented by User: Carly Zamorano, CLERICAL COORDINATOR 01/01/24 16:33 Event Note Date of Service: 01/01/24 Event Note: 33 yo male, history of schizoaffective disorder, PTSD, DID, Polysubstance Use Disorder, question of developmental delay, presents post discharge from [facility] with passive SI. He reports a seven day stay, discharging 12/30/23. Pt reports, upon discharge, non compliance with Methadone and psychotropic medications. States he was not allowed to remain in pt long enough and needs a re-admission. Initially denied SI/HI/AH/VH. When options were presented to him regarding self presenting for treatment via Section 35, [facility], [facility], pt reported he was suicidal with plan to overdose on medications or precipitate an MVA by jumping in front of a car. Pt has a history of several hospitalizations with [facility], seven since 11/03/22 with chronic non compliance with care plan, med regime and relapse. He has had several medication trials. He reports being unsure if he is [facility] connected and they are closed today so we are unable to obtain this information. We are also unsure if he is legally connected at this time. In meeting with pt he reports the admission was not long enough, he was offered no resources upon discharge and was sent directly to the street without options. When group home admission is discussed he reports this is not acceptable as it is confined, dirty, has dangerous, bad people who use drugs . Also reports being hurt in this environment. Reports he will attend any program in the state we would want him to attend, but will kill himself if sent to a group home. Reports alienation from all family/social resources for support. Also talks of feelings of being irate . States his birthday is around father's day and he was unable to see his daughter. Reports that he has lost all of my pride and feelings of being adequate as a man because of what has happened on the streets so it is better to just end it. Review of record: 1. Detailed updated history by Namita Baron [facility] in consult 12/31/23 with specifics regarding characterological symptoms which precipitate an increase risk of self injury which tw concurs with. 2. History of seven in pt hospitalizations at [facility] since 11/03/22 for addiction/psych/SI. 3. Admission 5/24/23 with [facility], [facility] due to IV Drug Use-this occurring 48 hours after release from incarceration with significant diagnostic elevations. 4. Admission 07/21/23 s/p cocaine OD with [facility]do after injection $200 cocaine in a suicide attempt 5. Admission 10/31/23 with [facility], bronchitis post discharge from a 30 day program with CPK [id number]. 6. Diagnostic trends as noted in values. 7. Chronic noncompliance and inability to live in the community without structured programming 8. Childhood PTSD/DID/?developmental delays weakening pts ability to live independently, safely and with success. As a result, I believe pt would meet consideration for criteria for Section 35 with consideration of the 90 day program option due to the above noted risks. Suggest Section 35 be applied for by ER team or pt be admitted to psychiatry and team application for Section 35 as pt presents as a chronic risk with decreasing intervals of clean time and ability to live safely and productively in community. Time Spent With Patient Time: Total time managing care of this patient today ____ minutes. Documented by User: Tyree Aviles MD 01/22/24 20:14 Event Note Date of Service: 01/22/24
[2024-01-01 20:27] VITALS: BP 101/72; PULSE 82; RESP 16; TEMP 36.7; O2SAT 96
[2024-01-01 20:34] VITALS: BP 101/72
[2024-01-01] MEDS: Prazosin HCL 1 MG CAPSULE 4 MG PO (20:34)
[2024-01-01] MEDS: chlorproMAZINE HCl 100 MG TABLET PO (20:34)
[2024-01-01] MEDS: QUEtiapine Fumarate 100 MG TABLET PO (20:34)
[2024-01-01 23:14] VITALS: BP 113/61; PULSE 75; RESP 16; TEMP 36.6; O2SAT 98
--- NOTE | 2024-01-02 | ECG_ITS ---
Test Reason : CHECK QTC Blood Pressure : / mmHG Vent. Rate : 073 BPM Atrial Rate : 073 BPM P-R Int : 150 ms QRS Dur : 076 ms QT Int : 408 ms P-R-T Axes : 004 016 032 degrees QTc Int : 449 ms Normal sinus rhythm Normal ECG When compared with ECG of 19-DEC-2023 19:52, No significant change was found Referred By: Jaime Banda Electronically Signed By:NIRANJAN GORDON
--- NOTE | 2024-01-02 07:18 | PC.NURSE ---
Assumed care of patient at 0645, patient appears to be sleeping, respirations even and unlabored, no apparent distress this am. Continue plan of care for inpatient bedsearch
[2024-01-02] MEDS: Docusate Sodium 100 MG CAPSULE PO ×2 (08:10→20:32)
[2024-01-02] MEDS: Atorvastatin Calcium 10 MG TABLET PO (08:10)
[2024-01-02] MEDS: NaPROXEN 500 MG TABLET PO ×2 (08:10→20:31)
[2024-01-02] MEDS: Sennosides 8.6 MG TABLET 17.2 MG PO (08:10)
[2024-01-02] MEDS: Gabapentin 600 MG TABLET PO ×3 (08:10→20:31)
[2024-01-02] MEDS: Baclofen 20 MG TABLET PO ×2 (08:10→20:33)
[2024-01-02] MEDS: cloNIDine HCL 0.1 MG TABLET PO ×2 (08:10→13:53)
[2024-01-02] MEDS: methADONE HCl 20 MG/2 ML ORAL.CONC 175 MG PO (08:11)
[2024-01-02] MEDS: Pramipexole Di-HCL 0.125 MG TABLET PO (08:13)
[2024-01-02] MEDS: PARoxetine HCL 30 MG TABLET PO (08:13)
[2024-01-02] MEDS: Nicotine Polacrilex Lozenge 2 MG LOZENGE BUCCAL ×2 (08:15→12:44)
[2024-01-02 08:16] VITALS: BP 119/79; PULSE 103; RESP 16; TEMP 36.4; O2SAT 97
--- NOTE | 2024-01-02 08:39 | MHC.CARE ---
Pt was cleared by CARE team and referred to recovery team. Recovery did not come and speak with him but will send assessment to detox for placement.
[2024-01-02] MEDS: LORazepam 1 MG TABLET PO ×2 (16:16→20:33)
[2024-01-02] MEDS: LORazepam 1 MG TABLET 2 MG PO ×2 (16:40→20:41)
[2024-01-02] MEDS: Nicotine Polacrilex 2 MG GUM 4 MG BUCCAL ×2 (17:18→20:42)
[2024-01-02 17:21] VITALS: BMI 33.2
--- NOTE | 2024-01-02 17:25 | PC.ADMIT ---
Addendum entered and electronically signed by Milly Núñez RN 01/02/24 19:50: Pt reports nerve damage in hands and feet due to hx Cocaine induced seizures. Skin check done upon admission with 2 staff members present. Original Note: This is one of multiple admissions for this 33 y.o. male to a behavioral health unit at [facility] Arrived on unit at 1509 and placed on 15min safety checks. Referred by [facility] Care Team with Dx of Major depressive d/om recurrent, severe with psychotic symptoms, Unspecified mood d/o, Opioid dependence, uncomplicated, Cocaine dependence, uncomplicated, Polysubstance dependence, daily use, PTSD. [facility] positive for Methadone, Benzos, Cocaine, Marijuana. ETOH <10. Pt reports use of opioids, cocaine, marijuana. Receives Methadone maintenance from [facility]; dosage clarified and given while in ED Pod. Nurse to nurse report received prior to admission from ED Pod. Pt denies medical issues. Pt reported benzo withdrawal symptoms, stating he takes Valium. Dr Marsh ordered CIWA. Scheduled Ativan 1mg po given po at 1616. CIWA [address] Masrh notified to question administration of additional Ativan 2mg per CIWA scale. Pt administered Ativan 2mg per Dr Marsh at 1640. Rates depression and anxiety #8 on scale 1-10(10 worse). Denies SI/HI, denies AH/VH. Reports poor sleep, good appetite. Would like CSS after discharge, currently homeless. Precipitating events to admission: Self presented to [facility] ED on 12/31/23 with concerns of missing his scheduled Methadone dose at scheduled appointment after discharge from hospital prior day. Signed Conditional Voluntary after meeting with Dr Marsh upon admission to unit.
[2024-01-02 20:00] VITALS: BP 145/85; PULSE 91; TEMP 36.6
[2024-01-02] MEDS: QUEtiapine Fumarate 100 MG TABLET PO (20:31)
[2024-01-02] MEDS: chlorproMAZINE HCl 100 MG TABLET PO (20:32)
[2024-01-02 20:33] VITALS: BP 145/85
[2024-01-02] MEDS: Prazosin HCL 1 MG CAPSULE 4 MG PO (20:33)
[2024-01-03] VITALS (7 sets, daily range): BP systolic 126–137; BP diastolic 75–83; PULSE 92–105; RESP 16–20; TEMP 36.4–36.9; O2SAT 96–97
[2024-01-03] MEDS: Acetaminophen 325 MG TABLET 650 MG PO ×2 (06:49→16:13)
[2024-01-03] MEDS: LORazepam 1 MG TABLET 2 MG PO ×2 (06:51→12:20)
[2024-01-03] MEDS: Nicotine Polacrilex 2 MG GUM 4 MG BUCCAL ×3 (06:57→15:07)
[2024-01-03] MEDS: methADONE HCl 20 MG/2 ML ORAL.CONC 175 MG PO (07:52)
[2024-01-03] MEDS: Gabapentin 600 MG TABLET PO ×3 (08:23→20:00)
[2024-01-03] MEDS: LORazepam 1 MG TABLET PO ×6 (08:24→20:11)
[2024-01-03] MEDS: NaPROXEN 500 MG TABLET PO (08:24)
[2024-01-03] MEDS: Sennosides 8.6 MG TABLET 17.2 MG PO (08:25)
[2024-01-03] MEDS: Docusate Sodium 100 MG CAPSULE PO ×2 (08:26→20:00)
[2024-01-03] MEDS: PARoxetine HCL 30 MG TABLET PO (08:26)
[2024-01-03] MEDS: Pramipexole Di-HCL 0.125 MG TABLET PO (08:27)
[2024-01-03] MEDS: Baclofen 20 MG TABLET PO ×2 (08:27→20:01)
[2024-01-03] MEDS: cloNIDine HCL 0.1 MG TABLET PO ×3 (08:27→17:17)
[2024-01-03 08:39] LABS: Estimated Average Glucose 105 mg/dL; Hemoglobin A1c % 5.3 % (<6.0)
[2024-01-03 08:52] LABS: Cholesterol 437 mg/dL (<200); HDL Cholesterol 46 mg/dL (>40); Magnesium 2.2 mg/dL (1.6-2.6); Triglycerides 755 mg/dL (<150)
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
[2024-01-03 09:07] LABS: Free T4 (Free Thyroxine) 0.83 ng/dL (0.71-1.85); Thyroid Stimulating Hormone 2.69 uIU/mL (0.32-4.0)
[2024-01-03 09:20] LABS: Folate 11.4 ng/mL (> or = 4.0); Vitamin B12 467 pg/mL (200-900)
[2024-01-03] MEDS: Lidocaine 4 % Patch ADH..PATCH 1 PATCH TRANSDERMA (16:46)
[2024-01-03] MEDS: Nicotine Polacrilex Lozenge 4 MG LOZENGE BUCCAL ×2 (18:22→20:12)
[2024-01-03] MEDS: hydrOXYzine HCL 50 MG TABLET PO (18:22)
[2024-01-03] MEDS: Prazosin HCL 1 MG CAPSULE 4 MG PO (19:59)
[2024-01-03] MEDS: traZODone HCL 50 MG TABLET PO (20:00)
[2024-01-03] MEDS: chlorproMAZINE HCl 100 MG TABLET PO (20:01)
[2024-01-03] MEDS: QUEtiapine Fumarate 100 MG TABLET PO (20:01)
[2024-01-04 08:00] VITALS: BP 104/74; PULSE 94; RESP 16; TEMP 36.2; O2SAT 94
[2024-01-04] MEDS: methADONE HCl 20 MG/2 ML ORAL.CONC 175 MG PO (08:10)
[2024-01-04 08:46] VITALS: BP 104/74
[2024-01-04] MEDS: PARoxetine HCL 30 MG TABLET 60 MG PO (08:46)
[2024-01-04] MEDS: Docusate Sodium 100 MG CAPSULE PO ×2 (08:46→20:07)
[2024-01-04] MEDS: cloNIDine HCL 0.1 MG TABLET PO ×3 (08:46→16:32)
[2024-01-04] MEDS: Baclofen 20 MG TABLET PO ×2 (08:47→20:10)
[2024-01-04] MEDS: Sennosides 8.6 MG TABLET 17.2 MG PO (08:47)
[2024-01-04] MEDS: LORazepam 1 MG TABLET PO ×6 (08:47→20:07)
[2024-01-04] MEDS: Gabapentin 600 MG TABLET PO ×3 (08:47→20:10)
[2024-01-04] MEDS: Pramipexole Di-HCL 0.125 MG TABLET PO (08:47)
[2024-01-04] MEDS: Nicotine Polacrilex Lozenge 4 MG LOZENGE BUCCAL ×5 (09:06→22:08)
[2024-01-04] MEDS: Nicotine 21 MG PATCH.TD24 TRANSDERMA (09:07)
--- NOTE | 2024-01-04 10:51 | HO.PSYCHPN ---
Subjective Subjective Date of Service: 01/04/24 Reason For Visit: major depression, polysubstance use disorder Subjective Notes: Conditional Voluntary Interim History: my mood is good because of benzos. Pt on ciwa for benzo withdrawal. concern of pt exagerating symptoms such reporting high anxiety when clearly and objectively sedated. VS stable. pt reports he is worried that he is only receiving 4mg of ativan a day and no more based on ciwa score. Pt report suicidal ideation, passive, no plan or intent. Pt upset that he may not be discharged on ativan because he states helps his anxiety and needs them Diagnostics Vital Signs (24Hr): Vital Signs - 24 hr 01/03/24 13:16 01/03/24 13:18 01/03/24 17:17 Temperature 97.6 F Pulse Rate 92 99 Respiratory Rate 16 Blood Pressure 126/78 126/78 131/78 Pulse Oximetry 97 Oxygen Delivery Method Room Air 01/03/24 19:59 01/03/24 20:00 01/04/24 08:00 Temperature 98.4 F 97.1 F Pulse Rate 105 H 94 Respiratory Rate 18 16 Blood Pressure 131/75 131/75 104/74 Pulse Oximetry 97 94 Oxygen Delivery Method Room Air Room Air 01/04/24 08:46 Temperature Pulse Rate Respiratory Rate Blood Pressure 104/74 Pulse Oximetry Oxygen Delivery Method BMI result Body Mass Index 33.2 Labs 12/31/23 12:15 12/31/23 12:15 Labs: Laboratory Results - last 48 hr 01/03/24 08:20 Estimat Average Glucose 105 Hemoglobin A1c % 5.3 Magnesium 2.2 Triglycerides 755 H Cholesterol 437 H LDL Cholesterol, Calc TNP HDL Cholesterol 46 Vitamin B12 467 Folate 11.4 TSH 2.69 Free T4 0.83 Medications Medications Current Medications Acetaminophen (Acetaminophen 325 Mg Tablet) 650 mg PO Q6H PRN PRN Reason: Headache/Pain Mild Scale (1-3) Last Admin: 01/03/24 16:13 Dose: 650 mg Al Hydroxide/Mg Hydroxide (Magnesium Hydrox/Alum Hydrox 30 Ml Oral.Susp) 30 ml PO Q6H PRN PRN Reason: Heartburn/Nausea Baclofen (Baclofen 20 Mg Tablet) 20 mg PO BID COUNT INCLUDES THE [facility] Last Admin: 01/04/24 08:47 Dose: 20 mg Chlorpromazine HCl (Chlorpromazine Hcl 100 Mg Tablet) 100 mg PO BEDTIME COUNT INCLUDES THE [facility] Last Admin: 01/03/24 20:01 Dose: 100 mg Clonidine HCl (Clonidine Hcl 0.1 Mg Tablet) 0.1 mg PO TID@0900,1300,1700 COUNT INCLUDES THE [facility]; Protocol Last Admin: 01/04/24 08:46 Dose: 0.1 mg Docusate Sodium (Docusate Sodium 100 Mg Capsule) 100 mg PO BID COUNT INCLUDES THE [facility] Last Admin: 01/04/24 08:46 Dose: 100 mg Gabapentin (Gabapentin 600 Mg Tablet) 600 mg PO TID COUNT INCLUDES THE [facility] Last Admin: 01/04/24 08:47 Dose: 600 mg Hydroxyzine HCl (Hydroxyzine Hcl 50 Mg Tablet) 50 mg PO QID PRN PRN Reason: Anxiety Last Admin: 01/03/24 18:22 Dose: 50 mg Lidocaine (Lidocaine 4 % Patch Adh..Patch) 1 patch TRANSDERMA DAILY PRN; Protocol PRN Reason: lower back pain Lorazepam (Lorazepam 1 Mg Tablet) 1 mg PO QID COUNT INCLUDES THE [facility] Last Admin: 01/04/24 08:47 Dose: 1 mg Lorazepam (Lorazepam 1 Mg Tablet) 1 mg PO Q2H PRN PRN Reason: CIWA 11 and above Last Admin: 01/04/24 09:06 Dose: 1 mg Magnesium Hydroxide (Milk Of Magnesia 30 Ml Oral.Susp) 30 ml PO DAILY PRN PRN Reason: Constipation Melatonin (Melatonin 3 Mg Tablet) 3 mg PO BEDTIME PRN PRN Reason: Insomnia Methadone HCl (Methadone Hcl 20 Mg/2 Ml Oral.Conc) 175 mg PO DAILY COUNT INCLUDES THE [facility] Last Admin: 01/04/24 08:10 Dose: 175 mg Naproxen (Naproxen 500 Mg Tablet) 500 mg PO BID PRN PRN Reason: pain 4-6 Nicotine (Nicotine 21 Mg Patch.Td24) 21 mg TRANSDERMA DAILY PRN PRN Reason: nicotine cravings Last Admin: 01/04/24 09:07 Dose: 21 mg Nicotine Polacrilex (Nicotine Polacrilex Lozenge 4 Mg Lozenge) 4 mg BUCCAL Q2H PRN PRN Reason: Nicotine Cravings Last Admin: 01/04/24 09:06 Dose: 4 mg Paroxetine HCl (Paroxetine Hcl 30 Mg Tablet) 60 mg PO DAILY COUNT INCLUDES THE [facility] Last Admin: 01/04/24 08:46 Dose: 60 mg Pramipexole Dihydrochloride (Pramipexole Di-Hcl 0.125 Mg Tablet) 0.125 mg PO DAILY BESSIE Last Admin: 01/04/24 08:47 Dose: 0.125 mg Prazosin HCl (Prazosin Hcl 1 Mg Capsule) 4 mg PO BEDTIME COUNT INCLUDES THE [facility]; Protocol Last Admin: 01/03/24 19:59 Dose: 4 mg Quetiapine Fumarate (Quetiapine Fumarate 100 Mg Tablet) 100 mg PO BEDTIME BESSIE Last Admin: 01/03/24 20:01 Dose: 100 mg Senna (Sennosides 8.6 Mg Tablet) 17.2 mg PO DAILY BESSIE Last Admin: 01/04/24 08:47 Dose: 17.2 mg Trazodone HCl (Trazodone Hcl 50 Mg Tablet) 50 mg PO BEDTIME MRX1 PRN PRN Reason: Insomnia Last Admin: 01/03/24 20:00 Dose: 50 mg Allergies Allergies Allergy/AdvReac Type Severity Reaction Status Date / Time amoxicillin Allergy Hives Verified 12/31/23 11:02 Penicillins [PCN] Allergy Hives Verified 12/31/23 11:02 seafood Allergy Difficulty Verified 12/31/23 11:02 Breathing Assessment & Plan Assessment & Plan (1) MDD (major depressive disorder), recurrent, severe, with psychosis: Status: Acute Code(s): F33.3 - Major depressive disorder, recurrent, severe with psychotic symptoms (2) PTSD (post-traumatic stress disorder): Status: Acute Code(s): F43.10 - Post-traumatic stress disorder, unspecified (3) Opioid use disorder, moderate, dependence: Status: Acute Code(s): F11.20 - Opioid dependence, uncomplicated (4) Cocaine use disorder, moderate, dependence: Status: Acute Code(s): F14.20 - Cocaine dependence, uncomplicated (5) Benzodiazepine abuse: Status: Acute Code(s): F13.10 - Sedative, hypnotic or anxiolytic abuse, uncomplicated Plan Patient is a 33-year-old male with history of depression, PTSD, benzo, cocaine, opioid use disorder, who presents for SI in the face of homelessness, being off meds and embroiled in substance abuse. Patient says that when he left here last time he stated a friends. He reports that after that he went to a program for week but got kicked out; he said that there was a nurse there who said she felt threatened by him though he was just joking around. Patient said that he was homeless after that, using cocaine and benzos daily; patient says he was using about 20 mg of Valium daily. Depressed and homeless he started having suicidal thoughts and so self presented. Plan: 01/03 will dc ciwa. pt already on scheduled dose of ativan. also on gabapentin. Reason for continued inpatient stay Substantial Risk for: inability to function Time Spent With Patient Time: Total time managing care of this patient today ____ minutes.
[2024-01-04 12:51] VITALS: BP 134/85
--- NOTE | 2024-01-04 12:56 | PC.NURSE ---
Jovany approached TW (not his assigned nurse as his nurse was on lunch break) and requested his detox medication . He was laughing, joking, and smiling while standing at medication window. When asked the symptoms he was experiencing in regards to his withdrawal symptoms, the pt was able to list off every question on the CIWA scale, in order, and reported he was experiencing every single one. Pt was offered and did accept his 1pm scheduled Ativan and clonidine.
[2024-01-04 16:30] VITALS: BP 124/74; PULSE 92; RESP 16; O2SAT 97
[2024-01-04 20:00] VITALS: BP 143/89; PULSE 82; RESP 18; TEMP 36.4; O2SAT 100
[2024-01-04 20:07] VITALS: BP 143/89
[2024-01-04] MEDS: Prazosin HCL 1 MG CAPSULE 4 MG PO (20:07)
[2024-01-04] MEDS: traZODone HCL 50 MG TABLET PO (20:10)
[2024-01-04] MEDS: hydrOXYzine HCL 50 MG TABLET PO (20:10)
[2024-01-04] MEDS: chlorproMAZINE HCl 100 MG TABLET PO (20:10)
[2024-01-04] MEDS: QUEtiapine Fumarate 100 MG TABLET PO (20:10)
[2024-01-04] MEDS: Melatonin 3 MG TABLET PO (20:10)
[2024-01-04] MEDS: Lidocaine 4 % Patch ADH..PATCH 1 PATCH TRANSDERMA (22:08)
[2024-01-05] VITALS (7 sets, daily range): BP systolic 108–163; BP diastolic 65–87; PULSE 80–93; RESP 16–18; TEMP 36.1–36.9; O2SAT 95–99; BMI 32.9
[2024-01-05] MEDS: methADONE HCl 20 MG/2 ML ORAL.CONC 175 MG PO (08:09)
[2024-01-05] MEDS: cloNIDine HCL 0.1 MG TABLET PO ×3 (09:11→16:39)
[2024-01-05] MEDS: Sennosides 8.6 MG TABLET 17.2 MG PO (09:12)
[2024-01-05] MEDS: LORazepam 1 MG TABLET PO ×4 (09:12→20:02)
[2024-01-05] MEDS: Gabapentin 600 MG TABLET PO (09:12)
[2024-01-05] MEDS: Docusate Sodium 100 MG CAPSULE PO ×2 (09:12→20:02)
[2024-01-05] MEDS: PARoxetine HCL 30 MG TABLET 60 MG PO (09:13)
[2024-01-05] MEDS: Baclofen 20 MG TABLET PO ×2 (09:15→20:02)
[2024-01-05] MEDS: Nicotine Polacrilex Lozenge 4 MG LOZENGE BUCCAL ×4 (09:16→22:45)
--- NOTE | 2024-01-05 09:23 | P.PNPSI_ITS ---
Subjective Subjective Date of Service: 01/05/24 Reason For Visit: major depression, polysubstance use disorder Interim History: Met with patient; discussed with team; reviewed chart Patient reports struggles with anxiety, being triggered by PTSD which he says produces AH. Patient feels that medication trials he has have not help with this, other than Ativan. Discussed options and patient reports that Thorazine 25 mg makes him sleepy which of course takes away anxiety; he agrees to try lower dose of Thorazine, 10 mg to see if that can help lower anxiety but not make him overly tired. Discussed the origin of his AH which is trauma and the need for consistent sobriety and therapy to address; patient says he uses to cope. Patient proud of himself for not abusing alcohol this past month which screenplay writer agrees is progress. Further medication discussion, patient would like to get off Seroquel; he says it just makes him eat too much and gained weight. He rather have Thorazine at bedtime. Also wants to go down on methadone little by little. Discussed very elevated cholesterol and revisited idea of taking a statin; patient however did not want to retry, saying it caused too much of a side effect, made a like his head was being by a train but said if there was something else for elevated cholesterol he take that. Mental Status Exam Mental Status Exam Narrative: Pt is alert and oriented; behavior is cooperative; patient is not in distress; dressed in casual attire; adequate hygiene; poor dentition; mood is described as anxious and affect congruent; eye contact adequate; Speech is normal rate, volume and prosody; no psychomotor retardation present; thought process is organized and goal directed; Thought content is on struggles in life, intermittent AH, tx; otherwise pertinent to relevant topics and without any delusional content, paranoid ideations or grandiosity; denies any SI/HI; intermittent, chronic passive SI which is fleeting. Intermittent AH when anxiety triggered, which is chronic. Patients insight and judgment fair Diagnostics Vital Signs (24Hr): Vital Signs - 24 hr 01/04/24 12:51 01/04/24 16:30 01/04/24 20:00 Temperature 97.6 F Pulse Rate 92 82 Respiratory Rate 16 18 Blood Pressure 134/85 124/74 143/89 H Pulse Oximetry 97 100 Oxygen Delivery Method Room Air Room Air 01/04/24 20:07 01/05/24 09:11 Temperature Pulse Rate Respiratory Rate Blood Pressure 143/89 H 108/70 Pulse Oximetry Oxygen Delivery Method BMI result Body Mass Index 33.2 Labs 12/31/23 12:15 12/31/23 12:15 Medications Medications Current Medications Acetaminophen (Acetaminophen 325 Mg Tablet) 650 mg PO Q6H PRN PRN Reason: Headache/Pain Mild Scale (1-3) Last Admin: 01/03/24 16:13 Dose: 650 mg Al Hydroxide/Mg Hydroxide (Magnesium Hydrox/Alum Hydrox 30 Ml Oral.Susp) 30 ml PO Q6H PRN PRN Reason: Heartburn/Nausea Baclofen (Baclofen 20 Mg Tablet) 20 mg PO BID [facility] Last Admin: 01/05/24 09:15 Dose: 20 mg Chlorpromazine HCl (Chlorpromazine Hcl 100 Mg Tablet) 100 mg PO BEDTIME [facility] Last Admin: 01/04/24 20:10 Dose: 100 mg Clonidine HCl (Clonidine Hcl 0.1 Mg Tablet) 0.1 mg PO TID@0900,1300,1700 [facility]; Protocol Last Admin: 01/05/24 09:11 Dose: 0.1 mg Docusate Sodium (Docusate Sodium 100 Mg Capsule) 100 mg PO BID [facility] Last Admin: 01/05/24 09:12 Dose: 100 mg Gabapentin (Gabapentin 600 Mg Tablet) 600 mg PO TID [facility] Last Admin: 01/05/24 09:12 Dose: 600 mg Hydroxyzine HCl (Hydroxyzine Hcl 50 Mg Tablet) 50 mg PO QID PRN PRN Reason: Anxiety Last Admin: 01/04/24 20:10 Dose: 50 mg Lidocaine (Lidocaine 4 % Patch Adh..Patch) 1 patch TRANSDERMA DAILY PRN; Protocol PRN Reason: lower back pain Last Admin: 01/04/24 22:08 Dose: 1 patch Lorazepam (Lorazepam 1 Mg Tablet) 1 mg PO QID [facility] Last Admin: 01/05/24 09:12 Dose: 1 mg Magnesium Hydroxide (Milk Of Magnesia 30 Ml Oral.Susp) 30 ml PO DAILY PRN PRN Reason: Constipation Melatonin (Melatonin 3 Mg Tablet) 3 mg PO BEDTIME PRN PRN Reason: Insomnia Last Admin: 01/04/24 20:10 Dose: 3 mg Methadone HCl (Methadone Hcl 20 Mg/2 Ml Oral.Conc) 175 mg PO DAILY [facility] Last Admin: 01/05/24 08:09 Dose: 175 mg Naproxen (Naproxen 500 Mg Tablet) 500 mg PO BID PRN PRN Reason: pain 4-6 Nicotine (Nicotine 21 Mg Patch.Td24) 21 mg TRANSDERMA DAILY PRN PRN Reason: nicotine cravings Last Admin: 01/04/24 09:07 Dose: 21 mg Nicotine Polacrilex (Nicotine Polacrilex Lozenge 4 Mg Lozenge) 4 mg BUCCAL Q2H PRN PRN Reason: Nicotine Cravings Last Admin: 01/05/24 09:16 Dose: 4 mg Paroxetine HCl (Paroxetine Hcl 30 Mg Tablet) 60 mg PO DAILY [facility] Last Admin: 01/05/24 09:13 Dose: 60 mg Pramipexole Dihydrochloride (Pramipexole Di-Hcl 0.125 Mg Tablet) 0.125 mg PO DAILY [facility] Last Admin: 01/04/24 08:47 Dose: 0.125 mg Prazosin HCl (Prazosin Hcl 1 Mg Capsule) 4 mg PO BEDTIME [facility]; Protocol Last Admin: 01/04/24 20:07 Dose: 4 mg Quetiapine Fumarate (Quetiapine Fumarate 100 Mg Tablet) 100 mg PO BEDTIME BESSIE Last Admin: 01/04/24 20:10 Dose: 100 mg Senna (Sennosides 8.6 Mg Tablet) 17.2 mg PO DAILY [facility] Last Admin: 01/05/24 09:12 Dose: 17.2 mg Trazodone HCl (Trazodone Hcl 50 Mg Tablet) 50 mg PO BEDTIME MRX1 PRN PRN Reason: Insomnia Last Admin: 01/04/24 20:10 Dose: 50 mg Allergies Allergies Allergy/AdvReac Type Severity Reaction Status Date / Time amoxicillin Allergy Hives Verified 12/31/23 11:02 Penicillins [PCN] Allergy Hives Verified 12/31/23 11:02 seafood Allergy Difficulty Verified 12/31/23 11:02 Breathing Assessment & Plan Assessment & Plan (1) MDD (major depressive disorder), recurrent, severe, with psychosis: Status: Acute Code(s): F33.3 - Major depressive disorder, recurrent, severe with psychotic symptoms (2) PTSD (post-traumatic stress disorder): Status: Acute Code(s): F43.10 - Post-traumatic stress disorder, unspecified (3) Opioid use disorder, moderate, dependence: Status: Acute Code(s): F11.20 - Opioid dependence, uncomplicated (4) Cocaine use disorder, moderate, dependence: Status: Acute Code(s): F14.20 - Cocaine dependence, uncomplicated (5) Benzodiazepine abuse: Status: Acute Code(s): F13.10 - Sedative, hypnotic or anxiolytic abuse, uncomplicated Plan Patient is a 33-year-old male with history of depression, PTSD, benzo, cocaine, opioid use disorder, who presents for SI in the face of homelessness, being off meds and embroiled in substance abuse. Patient says that when he left here last time he stated a friends. He reports that after that he went to a program for week but got kicked out; he said that there was a nurse there who said she felt threatened by him though he was just joking around. Patient said that he was homeless after that, using cocaine and benzos daily; patient says he was using about 20 mg of Valium daily. Depressed and homeless he started having suicidal thoughts and so self presented. Patient did not attempt any self-harm; denies AVH. Hospital course: 01/02 restarted home medications; started patient on CIWA with scheduled Ativan as well. Also continued gabapentin which was restarted in the emergency room. Some concern the patient was exaggerating CIWA scores. Party Plan Salesperson again met with patient who confirmed who is taking about 20 mg of Valium a day for about 2+ weeks. Party Plan Salesperson increased patient's scheduled Ativan to 4 mg daily (Ativan 1 mg q.i.d.) which is roughly the equivalent of Valium 20 mg a day; also continued CIWA with p.r.n. Ativan available for breakthrough symptoms. 01/03 my mood is good because of benzos. Pt on ciwa for benzo withdrawal. concern of pt exagerating symptoms such reporting high anxiety when clearly and objectively sedated. VS stable. pt reports he is worried that he is only receiving 4mg of ativan a day and no more based on ciwa score. Pt report suicidal ideation, passive, no plan or intent. 01/04 patient's mood is better and patient is social in the milieu, attending groups. Patient reports; intermittent passive SI however this is chronic; currently denies. Reports intermittent AH from history of trauma, also chronic. Adjusting medications, increasing access to Thorazine p.r.n. for anxiety and discontinuing Seroquel. Regarding being discharged on Ativan, Patient does have a long history of anxiety however his ongoing struggles with substance abuse, at this time preclude patient from continuing this medication as an outpatient. Once patient is consistently engaged in sobriety and outpatient therapy, this topic can be revisited by outpatient provider. Patient remains wanting to go to a substance abuse program. -patient not open to taking a statin but agrees to other medication options to address HLD Plan: CV Q 15 minute checks Continue Ativan 1 mg q.i.d. for now but will soon start to taper increase gabapentin back to 800 mg t.i.d.; screenplay writer agrees to do so. While this does increase risk for substance abuse, patient has been on a higher dose for quite a long time he feels there is little else helping his anxiety DC Seroquel 100 mg q.h.s.; patient does not want, causes wt gain Increase Thorazine to 175 mg q.h.s. for insomnia Add Thorazine 25 mg t.i.d. p.r.n. for her mild to moderate agitation; 25 mg makes patient sleeping Add Thorazine 10 mg t.i.d. p.r.n. for mild or anxiety; hoping 10 mg will take the edge off anxiety SHAYLAWA MODESTA (on 01/03 by covering provider reasoning patient is already on scheduled dose of ativan. also on gabapentin) Patient educated on: diagnosis, medication risk/benefits, substance abuse and medical condition Informed Consent: understands Reason for continued inpatient stay Substantial Risk for: rapid decompensation Time Spent With Patient Time: Total time managing care of this patient today ____ minutes.
[2024-01-05] MEDS: Lidocaine 4 % Patch ADH..PATCH 1 PATCH TRANSDERMA (10:31)
[2024-01-05] MEDS: Nicotine 21 MG PATCH.TD24 TRANSDERMA (10:31)
[2024-01-05] MEDS: Pramipexole Di-HCL 0.125 MG TABLET PO (10:32)
[2024-01-05] MEDS: Nicotine Polacrilex 2 MG GUM 4 MG BUCCAL (11:20)
[2024-01-05] MEDS: hydrOXYzine HCL 50 MG TABLET PO ×2 (12:41→22:45)
[2024-01-05] MEDS: Acetaminophen 325 MG TABLET 650 MG PO ×2 (13:11→23:15)
[2024-01-05] MEDS: NaPROXEN 500 MG TABLET PO (13:14)
[2024-01-05] MEDS: Gabapentin 400 MG CAPSULE 800 MG PO ×2 (16:39→20:02)
[2024-01-05] MEDS: chlorproMAZINE HCl 25 MG TABLET 175 MG PO (20:01)
[2024-01-05] MEDS: Prazosin HCL 1 MG CAPSULE 4 MG PO (20:02)
[2024-01-05] MEDS: traZODone HCL 50 MG TABLET PO (20:02)
[2024-01-05] MEDS: chlorproMAZINE HCl 25 MG TABLET PO (22:45)
[2024-01-06 08:00] VITALS: BP 111/55; PULSE 78; RESP 18; TEMP 36.9; O2SAT 97
[2024-01-06] MEDS: methADONE HCl 20 MG/2 ML ORAL.CONC 170 MG PO (08:10)
[2024-01-06] MEDS: Sennosides 8.6 MG TABLET 17.2 MG PO (08:39)
[2024-01-06] MEDS: Nicotine 21 MG PATCH.TD24 TRANSDERMA (08:39)
[2024-01-06] MEDS: Gabapentin 400 MG CAPSULE 800 MG PO ×3 (08:40→20:37)
[2024-01-06] MEDS: Pramipexole Di-HCL 0.125 MG TABLET PO (08:40)
[2024-01-06] MEDS: Docusate Sodium 100 MG CAPSULE PO ×2 (08:40→20:36)
[2024-01-06] MEDS: cloNIDine HCL 0.1 MG TABLET PO ×3 (08:40→18:04)
[2024-01-06] MEDS: PARoxetine HCL 30 MG TABLET 60 MG PO (08:40)
[2024-01-06] MEDS: LORazepam 1 MG TABLET PO ×4 (08:41→20:37)
[2024-01-06] MEDS: Baclofen 20 MG TABLET PO ×2 (08:41→20:36)
[2024-01-06] MEDS: Nicotine Polacrilex Lozenge 4 MG LOZENGE BUCCAL ×4 (08:41→20:36)
[2024-01-06] MEDS: Lidocaine 4 % Patch ADH..PATCH 1 PATCH TRANSDERMA (10:34)
[2024-01-06] MEDS: chlorproMAZINE HCl 25 MG TABLET PO (12:06)
[2024-01-06 12:08] VITALS: BP 123/61
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
[2024-01-06 18:04] VITALS: BP 116/75
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
[2024-01-06 20:00] VITALS: BP 117/85; PULSE 80; RESP 20; TEMP 37; O2SAT 97
[2024-01-06] MEDS: NaPROXEN 500 MG TABLET PO (20:36)
[2024-01-06] MEDS: chlorproMAZINE HCl 25 MG TABLET 175 MG PO (20:36)
[2024-01-06] MEDS: Melatonin 3 MG TABLET PO (20:36)
[2024-01-06 20:37] VITALS: BP 117/84
[2024-01-06] MEDS: Prazosin HCL 1 MG CAPSULE 4 MG PO (20:37)
[2024-01-06] MEDS: Acetaminophen 325 MG TABLET 650 MG PO (21:53)
[2024-01-06] MEDS: Nicotine Polacrilex 2 MG GUM 4 MG BUCCAL (21:53)
[2024-01-07] MEDS: methADONE HCl 20 MG/2 ML ORAL.CONC 165 MG PO (07:49)
[2024-01-07 08:20] VITALS: BP 105/63
[2024-01-07] MEDS: cloNIDine HCL 0.1 MG TABLET PO ×2 (08:20→13:25)
[2024-01-07 08:21] VITALS: BP 105/63; PULSE 71; RESP 16; TEMP 36.4; O2SAT 98
[2024-01-07] MEDS: Sennosides 8.6 MG TABLET 17.2 MG PO (09:18)
[2024-01-07] MEDS: PARoxetine HCL 30 MG TABLET 60 MG PO (09:19)
[2024-01-07] MEDS: Baclofen 20 MG TABLET PO ×2 (09:20→20:26)
[2024-01-07] MEDS: Gabapentin 400 MG CAPSULE 800 MG PO ×3 (09:20→20:26)
[2024-01-07] MEDS: Docusate Sodium 100 MG CAPSULE PO ×2 (09:20→20:27)
[2024-01-07] MEDS: LORazepam 1 MG TABLET PO ×3 (09:21→20:26)
[2024-01-07] MEDS: Pramipexole Di-HCL 0.125 MG TABLET PO (09:21)
[2024-01-07] MEDS: Nicotine Polacrilex Lozenge 4 MG LOZENGE BUCCAL ×6 (09:38→23:13)
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
[2024-01-07] MEDS: Lidocaine 4 % Patch ADH..PATCH 1 PATCH TRANSDERMA (11:47)
[2024-01-07] MEDS: NaPROXEN 500 MG TABLET PO (13:24)
[2024-01-07] MEDS: chlorproMAZINE HCl 25 MG TABLET PO (13:24)
[2024-01-07] MEDS: chlorproMAZINE HCl 10 MG TABLET PO (13:24)
[2024-01-07] MEDS: Fenofibrate 54 MG TABLET PO (14:45)
[2024-01-07 20:00] VITALS: BP 107/57; PULSE 80; RESP 16; TEMP 36.8; O2SAT 97
[2024-01-07] MEDS: chlorproMAZINE HCl 25 MG TABLET 175 MG PO (20:26)
[2024-01-07 20:27] VITALS: BP 107/57
[2024-01-07] MEDS: Prazosin HCL 1 MG CAPSULE 4 MG PO (20:27)
[2024-01-07] MEDS: Acetaminophen 325 MG TABLET 650 MG PO (21:09)
[2024-01-08 07:30] VITALS: BP 151/89; PULSE 83; RESP 15; TEMP 36.5; O2SAT 95
[2024-01-08] MEDS: methADONE HCl 20 MG/2 ML ORAL.CONC 165 MG PO (08:01)
[2024-01-08] MEDS: Baclofen 20 MG TABLET PO ×2 (08:26→20:21)
[2024-01-08] MEDS: Pramipexole Di-HCL 0.125 MG TABLET PO (08:26)
[2024-01-08] MEDS: Docusate Sodium 100 MG CAPSULE PO ×2 (08:26→20:21)
[2024-01-08] MEDS: Sennosides 8.6 MG TABLET 17.2 MG PO (08:26)
[2024-01-08] MEDS: LORazepam 1 MG TABLET PO ×3 (08:26→20:22)
[2024-01-08] MEDS: Gabapentin 400 MG CAPSULE 800 MG PO ×3 (08:26→20:21)
[2024-01-08] MEDS: Fenofibrate 54 MG TABLET PO (08:26)
[2024-01-08 08:27] VITALS: BP 151/89
[2024-01-08] MEDS: cloNIDine HCL 0.1 MG TABLET PO ×3 (08:27→18:39)
[2024-01-08] MEDS: PARoxetine HCL 30 MG TABLET 60 MG PO (08:27)
[2024-01-08] MEDS: Nicotine 21 MG PATCH.TD24 TRANSDERMA (09:31)
[2024-01-08] MEDS: Nicotine Polacrilex 2 MG GUM 4 MG BUCCAL ×3 (09:32→19:12)
[2024-01-08] MEDS: Lidocaine 4 % Patch ADH..PATCH 1 PATCH TRANSDERMA (09:50)
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
[2024-01-08] MEDS: Milk of Magnesia 30 ML ORAL.SUSP PO (12:08)
[2024-01-08 14:04] VITALS: BP 140/88
[2024-01-08] MEDS: Atorvastatin Calcium 10 MG TABLET PO (14:04)
[2024-01-08] MEDS: hydrOXYzine HCL 50 MG TABLET PO (14:49)
[2024-01-08] MEDS: chlorproMAZINE HCl 25 MG TABLET PO (14:49)
[2024-01-08] MEDS: chlorproMAZINE HCl 10 MG TABLET PO (14:50)
[2024-01-08 18:39] VITALS: BP 111/73
[2024-01-08 20:00] VITALS: BP 128/72; PULSE 106; RESP 16; TEMP 36.9; O2SAT 97
[2024-01-08 20:18] VITALS: BP 128/72
[2024-01-08] MEDS: chlorproMAZINE HCl 25 MG TABLET 175 MG PO (20:18)
[2024-01-08] MEDS: Magnesium Hydrox/Alum Hydrox 30 ML ORAL.SUSP PO (20:18)
[2024-01-08] MEDS: Prazosin HCL 1 MG CAPSULE 4 MG PO (20:18)
[2024-01-08] MEDS: Acetaminophen 325 MG TABLET 650 MG PO (20:21)
[2024-01-09 08:00] VITALS: BP 102/63; PULSE 89; RESP 16; TEMP 36.3; O2SAT 100
[2024-01-09] MEDS: methADONE HCl 20 MG/2 ML ORAL.CONC 165 MG PO (08:00)
[2024-01-09] MEDS: Fenofibrate 54 MG TABLET PO (08:49)
[2024-01-09] MEDS: Nicotine Polacrilex Lozenge 4 MG LOZENGE BUCCAL (08:49)
[2024-01-09] MEDS: LORazepam 1 MG TABLET PO ×2 (08:49→20:23)
[2024-01-09] MEDS: Sennosides 8.6 MG TABLET 17.2 MG PO (08:49)
[2024-01-09] MEDS: PARoxetine HCL 30 MG TABLET 60 MG PO (08:49)
[2024-01-09] MEDS: Nicotine 21 MG PATCH.TD24 TRANSDERMA (08:49)
[2024-01-09] MEDS: Nicotine Polacrilex 2 MG GUM 4 MG BUCCAL ×4 (08:50→20:28)
[2024-01-09] MEDS: Baclofen 20 MG TABLET PO ×2 (08:50→20:23)
[2024-01-09] MEDS: Pramipexole Di-HCL 0.125 MG TABLET PO (08:50)
[2024-01-09] MEDS: cloNIDine HCL 0.1 MG TABLET PO ×3 (08:50→16:50)
[2024-01-09] MEDS: Atorvastatin Calcium 10 MG TABLET PO (08:50)
[2024-01-09] MEDS: Gabapentin 400 MG CAPSULE 800 MG PO ×3 (08:50→20:22)
[2024-01-09] MEDS: Docusate Sodium 100 MG CAPSULE PO ×2 (08:55→20:23)
[2024-01-09 13:10] VITALS: BP 126/72
[2024-01-09] MEDS: chlorproMAZINE HCl 25 MG TABLET PO (13:10)
[2024-01-09] MEDS: hydrOXYzine HCL 50 MG TABLET PO (13:10)
[2024-01-09] MEDS: chlorproMAZINE HCl 10 MG TABLET PO (13:10)
[2024-01-09] MEDS: Lidocaine 4 % Patch ADH..PATCH 1 PATCH TRANSDERMA (16:50)
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
[2024-01-09 20:00] VITALS: BP 131/76; PULSE 95; RESP 16; O2SAT 97
[2024-01-09 20:23] VITALS: BP 131/76
[2024-01-09] MEDS: Prazosin HCL 1 MG CAPSULE 4 MG PO (20:23)
[2024-01-09] MEDS: chlorproMAZINE HCl 25 MG TABLET 175 MG PO (20:23)
[2024-01-10] MEDS: Nicotine Polacrilex 2 MG GUM 4 MG BUCCAL ×2 (00:04→09:29)
[2024-01-10] MEDS: methADONE HCl 20 MG/2 ML ORAL.CONC 165 MG PO (08:00)
[2024-01-10 09:00] VITALS: BP 111/59; PULSE 72; TEMP 36.1; O2SAT 97
[2024-01-10] MEDS: Sennosides 8.6 MG TABLET 17.2 MG PO (09:07)
[2024-01-10 09:08] VITALS: BP 111/59
[2024-01-10] MEDS: Gabapentin 400 MG CAPSULE 800 MG PO (09:08)
[2024-01-10] MEDS: Pramipexole Di-HCL 0.125 MG TABLET PO (09:08)
[2024-01-10] MEDS: cloNIDine HCL 0.1 MG TABLET PO (09:08)
[2024-01-10] MEDS: PARoxetine HCL 30 MG TABLET 60 MG PO (09:08)
[2024-01-10] MEDS: Fenofibrate 54 MG TABLET PO (09:09)
[2024-01-10] MEDS: LORazepam 1 MG TABLET PO (09:09)
[2024-01-10] MEDS: Docusate Sodium 100 MG CAPSULE PO (09:10)
[2024-01-10] MEDS: Baclofen 20 MG TABLET PO (09:10)
[2024-01-10] MEDS: Atorvastatin Calcium 10 MG TABLET PO (09:10)
[2024-01-10] MEDS: Nicotine 21 MG PATCH.TD24 TRANSDERMA (09:26)
[2024-01-10] MEDS: Naloxone HCl Nasal TAKE HOME 4 MG SPRAY 8 MG NOSTRILALT (09:27)
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
== END 2024-01-10 11:30 | disposition home or self-care (01) | DRG 751 ==
LOC: HO.ED 12:09 → HO.PM5 01-02 14:44
PROVIDERS: Nurse Practitioner Family; Admitting Provider Clinical Nurse Specialist Psychiatric/Mental Health, Adult; Emergency Provider Emergency Medicine; Visit Provider Psychiatry & Neurology Psychiatry
DX: F33.3 Major depressive disorder, recurrent, severe with psychotic symptoms (principal); R45.851 Suicidal ideations; F11.20 Opioid dependence, uncomplicated; F43.10 Post-traumatic stress disorder, unspecified; F14.20 Cocaine dependence, uncomplicated; F13.10 Sedative, hypnotic or anxiolytic abuse, uncomplicated; Z59.02 Unsheltered homelessness; Z79.899 Other long term (current) drug therapy
CPT/HCPCS: 36415; 80048; 80061; 80076; 80143; 80179; 80307; 81003; 82607; 82746; 83036; 83735; 84439; 84443; 85025; 92950; 93005; 99285; S9485

== ENCOUNTER → 2024-01-02 12:30 | Outpatient (BNV) | payer OTHER, SELFPAY | PROVIDERS: Admitting Provider Clinical Nurse Specialist Psychiatric/Mental Health, Adult; Emergency Provider Emergency Medicine; Visit Provider Internal Medicine | DX: F33.3 Major depressive disorder, recurrent, severe with psychotic symptoms (principal); F11.90 Opioid use, unspecified, uncomplicated | CPT/HCPCS: 93010 ==

== ENCOUNTER → 2024-01-02 13:37 | Outpatient (BNV) | payer OTHER, SELFPAY | PROVIDERS: Admitting Provider Clinical Nurse Specialist Psychiatric/Mental Health, Adult; Emergency Provider Emergency Medicine; Visit Provider Psychiatry & Neurology Psychiatry | DX: F33.3 Major depressive disorder, recurrent, severe with psychotic symptoms (principal); F43.10 Post-traumatic stress disorder, unspecified; F11.20 Opioid dependence, uncomplicated; F14.20 Cocaine dependence, uncomplicated; F13.10 Sedative, hypnotic or anxiolytic abuse, uncomplicated; F60.2 Antisocial personality disorder | CPT/HCPCS: 90792; 99232; 99239; 99499 ==

== ENCOUNTER 2024-01-22 04:21 | Emergency (ER) | payer OTHER, SELFPAY ==
[2024-01-22 04:22] VITALS: BP 131/78; PULSE 82; RESP 16; TEMP 36.6; O2SAT 99; BMI 34.4
--- NOTE | 2024-01-22 04:32 | ED_ITS ---
HPI - Psych General Chief Complaint: Psychiatric Symptoms Stated Complaint: S/I Time Seen by Provider: 01/22/24 04:31 Source: patient Mode of arrival: ambulatory Limitations: no limitations History of Present Illness ED Provider: DR. Roberto HPI Narrative: 33-year-old male came in for evaluation of depression and feeling suicidal with no plan. Patient with history of depression and prior mental health hospitalization for depression and SI, attempt suicide in the past by overdosing. Admit to smoking cocaine last use was yesterday. No homicidal ideation, no visual or auditory hallucination. Patient declined any reason to trigger his depression and SI. Related Data Previous Rx's ?Medication ?Instructions ?Recorded atorvastatin 10 mg tablet 10 mg PO DAILY 30 days #30 tabs 01/10/24 baclofen 20 mg tablet 20 mg PO BID 30 days #60 tabs 01/10/24 chlorpromazine 200 mg tablet 200 mg PO BEDTIME 30 days #30 tabs 01/10/24 chlorpromazine 25 mg tablet 25 mg PO TID PRN mild agitation 30 01/10/24 days #90 tabs clonidine HCl 0.1 mg tablet 0.1 mg PO TID@0900,1300,1700 01/10/24 Anxiety 30 days #90 tabs docusate sodium 100 mg capsule 100 mg PO BID 30 days #60 caps 01/10/24 fenofibrate 54 mg tablet 54 mg PO DAILY 30 days #30 tabs 01/10/24 gabapentin 800 mg tablet 800 mg PO TID 30 days #90 tabs 01/10/24 hydroxyzine HCl 50 mg tablet 50 mg PO QID PRN Anxiety 30 days 01/10/24 #90 tabs lidocaine 4 % topical patch 1 patch topical DAILY PRN lower 01/10/24 back pain 30 days #30 ea lorazepam 1 mg tablet 1 mg PO DAILY 4 days #4 tabs 01/10/24 melatonin 3 mg tablet 3 mg PO BEDTIME PRN Insomnia 30 01/10/24 days #30 tabs methadone 10 mg/mL oral 165 mg (16.5 mL) PO DAILY #0 mL 01/10/24 concentrate (Methadose) naproxen 500 mg tablet 500 mg PO BID PRN pain #60 tabs 01/10/24 nicotine (polacrilex) 2 mg buccal 2 mg PO Q2H PRN Nicotine Cravings 01/10/24 lozenge 30 days #108 ea nicotine 21 mg/24 hr daily 1 patch topical DAILY PRN nicotine 01/10/24 transdermal patch cravings 28 days #28 ea paroxetine HCl 30 mg tablet 60 mg (2 x 30 mg) PO DAILY 30 days 01/10/24 #60 tabs pramipexole 0.125 mg tablet 0.125 mg PO DAILY 30 days #30 tabs 01/10/24 prazosin 2 mg capsule 4 mg (2 x 2 mg) PO BEDTIME 30 days 01/10/24 #60 caps sennosides 8.6 mg tablet (senna) 17.2 mg (2 x 8.6 mg) PO DAILY 30 01/10/24 days #60 tabs Allergies Allergy/AdvReac Type Severity Reaction Status Date / Time amoxicillin Allergy Hives Verified 01/22/24 04:24 Penicillins [PCN] Allergy Hives Verified 01/22/24 04:24 seafood Allergy Difficulty Verified 01/22/24 04:24 Breathing Review of Systems Review of Systems: All other systems are reviewed and are negative Constitutional: Reports as per HPI and Reports no additional constitutional complaints Eyes: Reports as per HPI and Reports no additional eye complaints Reports system reviewed and no additional complaints, except as documented Cardiovascular: Reports as per HPI and Reports no additional cardiovascular co mplaints Respiratory: Reports as per HPI and Reports no additional respiratory complaints Gastrointestinal: Reports as per HPI and Reports no additional gastrointestinal complaints Genitourinary: Reports no additional female genitourinary complaints Musculoskeletal: Reports no additional musculoskeletal complaints Skin/Breast: Reports system reviewed and no additional complaints, except as docu Psychiatric: Reports no additional psychiatric complaints Endocrine: Reports no additional endocrine complaints Hematologic/Lymphatic: Reports no additional hematologic/lymphatic complaints Allergic/Immunologic: Reports no additional allergic/immunologic complaints Reports system reviewed and no additional complaints, except as documented and Reports Abnormal speech present [facility] Past Medical History Medical History Opioid use disorder Depression Antisocial personality disorder Cocaine use disorder, moderate, dependence Benzodiazepine abuse MDD (major depressive disorder), recurrent, severe, with psychosis Alcohol use disorder Mood disorder PTSD (post-traumatic stress disorder) Polysubstance (including opioids) dependence, daily use Social History Social History Household Members: None Household Members Other:: homeless Housing: Homeless Do you presently have visiting nurse or other home services: No Unable to assess alcohol history related to: Unknown Alcohol intake: current Alcohol intake frequency: 3 or more drinks per day Alcohol type: hard liquor Comment: Pt ambulates independently Patient Tobacco Use Status: Current everyday Tobacco user Tobacco use type: Cigarette Cigarette Packs Per Day: 1 Cigarettes Per Day: 20.0 Years Smoked: 20 e-Cigarette/Vaping Use: Never Used Second Hand Smoke Exposure: Yes Substance Use Type: Crack/Cocaine and Marijuana Advance Directives: No Advance Directives Information Provided: No Do you have a plan to hurt others: No Plan service: No Current occupational status: unemployed Sexual orientation: Straight/Heterosexual Physical Exam Vital Signs: Vital Signs: Last Vital Signs Temp 97.9 F 01/22/24 04:22 Pulse 82 01/22/24 04:22 Resp 16 01/22/24 04:22 BP 131/78 01/22/24 04:22 Pulse Ox 99 01/22/24 04:22 O2 Del Method Room Air 01/22/24 04:22 BMI result Body Mass Index 34.4 Vital signs have been reviewed and appear to be correct. Blood pressure elevated. Heart rate normal. Respiratory rate normal. Temperature normal. Oxygen saturation normal. Appearance: Alert. Oriented X3. No acute distress. Head: Normal external exam. Normocephalic. Atraumatic. No Massey signs noted. No raccoon eyes noted Eyes: PERRLA. EOMI. Conjunctiva and sclera normal. Eyelids normal. ENT: TM's Normal. Pharynx normal. Uvula midline. Moist mucous membranes. No trismus noted. No drooling noted. No muffled voice noted. Neck: Normal inspection. Neck supple. FROM. No adenopathy. Thyroid Normal. No meningeal signs. No neck mass noted. CVS: Normal heart rate and rhythm. Heart sound normal. No murmurs noted. Pulses normal throughout. Respiratory: No respiratory distress. Painless inspiration. Breath sounds normal. No wheezes/rales/rhonchi noted. Chest nontender. No accessory muscle usage noted or decreased air movement noted. Abdomen: Soft and nontender. Bowel sounds normal in all 4 quadrants. No distention noted. No organomegaly noted. No visible injury noted. Back: No CVA tenderness. Full range of motion noted. Skin: Skin warm and dry. Normal skin color. Normal skin turgor. No rashes/lesions/lacerations noted. Extremities: No lower extremity edema. Extremities exhibit normal range of motion. Extremities nontender. Neuro: Oriented X 3. Cranial nerve exam: II-XII are grossly intact No motor deficit. No sensory deficit. Reflexes normal. Patient Orientation: Person, Place, Time and Situation, okay hygiene and grooming. Fair eye contact, attentive, no tics or tremors. Level of Consciousness: Awake, Appropriate and Alert Patient Behavior: Appropriate, Guarded, Cooperative and Anxious Mood Description: Constricted, Blunted and Apprehensive Affect Description: Constricted, Blunted and Apprehensive Patient Cognition Impaired: No Ability to Follow Directions: Excellent Speech Pattern: Clear, Appropriate and Spontaneous Speech, nonpressured, spontaneous with regular rate and rhythm, normal volume and prosody. No dysarthria. Memory Description: Intact, Immediate Intact and Short Term Intact Hallucinations: None Delusions: Not Present Thought Process: Intact Thought Content: positive Suicidal Ideation with no plan. and denies Homicidal Ideation. Depressive Symptoms: Not present. Judgement and Insight: Limited but adequate. Course Reevaluation(s) Reevaluation #1: Start on physician observation, await for care team evaluation, medically clear. Time: 05:00 Medical Decision Making Differential Diagnosis Differential Diagnoses: The differential diagnosis associated with the presentation includes (Depression, SI, acute psychosis, medical clearance, electrolyte derangement, severe anemia, substance abuse.) Admission/Observation Consideration of admission/observation: Escalation of care including admission/observation considered Discharge Plan Discharge Clinical Impression: Depression, Suicidal ideation, Substance abuse Patient Disposition: Still a Patient Prescriptions: No Action fenofibrate 54 mg Tablet 54 mg PO DAILY 30 Days Qty: 30 1RF chlorpromazine 25 mg Tablet 25 mg PO TID PRN (Reason: mild agitation) 30 Days Qty: 90 1RF lorazepam 1 mg Tablet 1 mg PO DAILY 4 Days Qty: 4 0RF methadone [Methadose] 10 mg/mL Concentrate 165 mg PO DAILY Qty: 0 0RF Rx Instructions: Partial Fill upon patient request. sennosides [senna] 8.6 mg tablet 17.2 mg PO DAILY 30 Days Qty: 60 1RF clonidine HCl 0.1 mg tablet 0.1 mg PO TID@0900,1300,1700 30 Days Qty: 90 1RF atorvastatin 10 mg tablet 10 mg PO DAILY 30 Days Qty: 30 1RF hydroxyzine HCl 50 mg tablet 50 mg PO QID PRN (Reason: Anxiety) 30 Days Qty: 90 1RF melatonin 3 mg tablet 3 mg PO BEDTIME PRN (Reason: Insomnia) 30 Days Qty: 30 1RF baclofen 20 mg tablet 20 mg PO BID 30 Days Qty: 60 1RF gabapentin 800 mg tablet 800 mg PO TID 30 Days Qty: 90 1RF paroxetine HCl 30 mg tablet 60 mg PO DAILY 30 Days Qty: 60 1RF nicotine 21 mg/24 hr patch 24 hour 1 patch topical DAILY PRN (Reason: nicotine cravings) 28 Days Qty: 28 0RF pramipexole 0.125 mg tablet 0.125 mg PO DAILY 30 Days Qty: 30 1RF docusate sodium 100 mg capsule 100 mg PO BID 30 Days Qty: 60 1RF Rx Instructions: hold for loose stool chlorpromazine 200 mg tablet 200 mg PO BEDTIME 30 Days Qty: 30 1RF prazosin 2 mg capsule 4 mg PO BEDTIME 30 Days Qty: 60 1RF naproxen 500 mg tablet 500 mg PO BID PRN (Reason: pain) Qty: 60 0RF nicotine (polacrilex) 2 mg lozenge 2 mg PO Q2H PRN (Reason: Nicotine Cravings) 30 Days Qty: 108 0RF Rx Instructions: DNE 20/DAY lidocaine 4 % adhesive patch,medicated 1 patch topical DAILY PRN (Reason: lower back pain) 30 Days Qty: 30 1RF Rx Instructions: apply to lower back daily as needed Print Language: Prydeinig
[2024-01-22 04:57] LABS: Basophils Absolute Auto 0.1 X10*3/uL (0.0-0.2); Basophils Percent Auto 0.7 % (0-2); Eosinophils Absolute Auto 0.4 X10*3/uL (0.0-0.4); Eosinophils Percent Auto 5.5 % (0-4); Hemoglobin 11.9 g/dl (14.0-18.0); Imm Gran Abs Auto 0.03 X10*3/uL (0.00-0.03); Imm Gran Pct Auto 0.4 % (0.0-0.4); Lymphocytes Absolute Auto 2.6 X10*3/uL (1.2-4.9); Lymphocytes Percent Auto 34.3 % (20-40); MANUAL DIFF FLAG NO; Mean Corpuscular Volume 82.4 fL (80.0-98.0); Mean Platelet Volume 9.7 fL (9.4-12.4); Monocytes Absolute Auto 0.9 X10*3/uL (0.1-1.2); Neutrophils Absolute Auto 3.5 x10*3/uL (2.0-8.3); Neutrophils Percent Auto 47.1 % (45-73); Platelet Count 221 X10*3/uL (160-400); Red Blood Count 4.25 X10*6/uL (4.60-5.80); Red Cell Distribution Width 14.6 % (11.0-16.0); White Blood Count 7.4 X10*3/uL (4.8-10.8)
[2024-01-22 05:11] LABS: Alanine Aminotransferase 29 U/L (0-40); Albumin Level 4.5 g/dL (3.5-5.0); Alkaline Phosphatase 77 U/L (39-117); Anion Gap 13 (12-20); Aspartate Amino Transferase 36 U/L (5-37); Bilirubin Total 0.4 mg/dL (0.0-1.0); Blood Urea Nitrogen 26 mg/dL (9-16); Calcium 9.8 mg/dL (8.4-10.2); Carbon Dioxide 25 mmol/L (22-29); Chloride 107 mmol/L (96-108); Creatinine Clr Calc Pharmacy 154.5; Estimated Glomerular Filt Rate > 60; Ethanol < 10 mg/dL; Glucose Random 99 mg/dL (60-115); Potassium 3.4 mmol/L (3.3-5.1); Sodium 142 mmol/L (135-145); Total Protein 7.7 g/dL (6.5-8.0)
[2024-01-22 05:40] LABS: Acetaminophen LAB < 3 mcg/mL (<30); Salicylate < 5.0 mg/dL (15-30)
[2024-01-22 06:36] VITALS: BP 113/55; PULSE 64; RESP 17; TEMP 36.6; O2SAT 99
--- NOTE | 2024-01-22 07:49 | PC.NURSE ---
Assumed care of patient at 0645, patient appears to be sleeping, respirations even and unlabored. Continue plan of care for CARE team billy
--- NOTE | 2024-01-22 08:12 | PC.NURSE ---
Per [facility], patient has not dosed with their clinic since 01/10. Patient remains asleep at this time, will attempt to clarify where patient last dosed when he wakes up
--- NOTE | 2024-01-22 10:06 | PC.NURSE ---
Patient reports that he was recently discharged from [facility] in [place], [place]. This RN called facility, facility states that they will call back when the appropriate person is back in their office to provide us with the methadone dose
[2024-01-22 10:07] LABS: Appearance Urine Clear; Color Urine Yellow; Glucose Urine UA Negative (Negative); Leukocyte Esterase Urine Negative (Negative); Nitrite Urine Negative (Negative); Specific Gravity - Urine >= 1.030 (1.005-1.025); UMIC TRIGGER UACC YES; Urine Blood Negative (Negative); Urine Ketones Negative (Negative); Urine Protein 30 (1+) mg/dL (Neg-Trace)
[2024-01-22 10:13] LABS: Bacteria Urine None Seen (None Seen); Hyaline Casts Urine 0-2 /LPF (0-2); RBC Urine 0-2 /HPF (0-2); Squamous Epithelial Cell Urine 0-2 /HPF (0-2); WBC Urine 0-5 /HPF (0-5)
[2024-01-22 10:16] LABS: Amphetamine Screen Urine Not Detected (Not Detect); Barbiturates, Urine Not Detected (Not Detect); Benzodiazepines Screen Urine POSITIVE (Not Detect); Buprenorphine Scr Not Detected (Not Detect); Cannabinoid Screen Urine POSITIVE (Not Detect); Cocaine Screen Urine POSITIVE (Not Detect); Fentanyl, urine POSITIVE (Not Detect); Methadone Screen, Urine Positive (Not Detect); Opiate Screen Urine Not Detected (Not Detect); Oxycodone Screen Urine Not Detected (Not Detect); Phencyclidine Screen Urine Not Detected (Not Detect)
--- NOTE | 2024-01-22 11:42 | PHA.MEDREC ---
Pharmacy Consult ? Medication Reconciliation Pharmacy has completed the medication reconciliation. MED REC DONE BY NURSING AND REVIEWED BY PHARMACY
--- NOTE | 2024-01-22 12:11 | HE.PHANOTE ---
Re: Methadone Last dose verified for methadone 165 mg daily, last taken 01/20/24@0900. This was verified from [facility].
[2024-01-22] MEDS: Sennosides 8.6 MG TABLET 17.2 MG PO (12:15)
[2024-01-22] MEDS: PARoxetine HCL 30 MG TABLET 60 MG PO (12:15)
[2024-01-22] MEDS: Gabapentin 400 MG CAPSULE 800 MG PO ×3 (12:15→20:28)
[2024-01-22] MEDS: Pramipexole Di-HCL 0.125 MG TABLET PO (12:15)
[2024-01-22] MEDS: Docusate Sodium 100 MG CAPSULE PO ×2 (12:16→20:27)
[2024-01-22] MEDS: cloNIDine HCL 0.1 MG TABLET PO ×2 (12:16→17:10)
[2024-01-22] MEDS: Atorvastatin Calcium 10 MG TABLET PO (12:16)
[2024-01-22] MEDS: Baclofen 20 MG TABLET PO ×2 (12:16→20:27)
--- NOTE | 2024-01-22 12:19 | PC.NURSE ---
Medication administration delayed due to delayed pharmacy verification
[2024-01-22] MEDS: methADONE HCl 20 MG/2 ML ORAL.CONC 165 MG PO (13:07)
[2024-01-22] MEDS: Fenofibrate 54 MG TABLET PO (13:07)
[2024-01-22 17:10] VITALS: BP 128/74
[2024-01-22 17:14] VITALS: BP 128/74; PULSE 61; RESP 16; TEMP 37.1; O2SAT 95
[2024-01-22] MEDS: Nicotine Polacrilex Lozenge 2 MG LOZENGE BUCCAL ×2 (19:06→23:00)
--- NOTE | 2024-01-22 19:39 | PC.NURSE ---
patient appears to remain at rest presently respirations are even and unlabored patient appears in no distress, requested and received nicotine replacement soon after t/ws arrival.
[2024-01-22] MEDS: Prazosin HCL 1 MG CAPSULE 4 MG PO (20:27)
[2024-01-22] MEDS: chlorproMAZINE HCl 100 MG TABLET 200 MG PO (20:27)
[2024-01-23 02:37] VITALS: BP 107/55; PULSE 53; RESP 20; TEMP 36.9; O2SAT 95
[2024-01-23 05:13] VITALS: BP 103/54; PULSE 59; RESP 16; TEMP 36.9; O2SAT 96
--- NOTE | 2024-01-23 07:47 | PC.NURSE ---
has been resting quietly. Skin PWD. Ate breakfast. sitter at bedside. Calm.
[2024-01-23] MEDS: Docusate Sodium 100 MG CAPSULE PO (09:24)
[2024-01-23 09:25] VITALS: BP 111/68
[2024-01-23] MEDS: Baclofen 20 MG TABLET PO (09:25)
[2024-01-23] MEDS: Sennosides 8.6 MG TABLET 17.2 MG PO (09:25)
[2024-01-23] MEDS: cloNIDine HCL 0.1 MG TABLET PO (09:25)
[2024-01-23] MEDS: Atorvastatin Calcium 10 MG TABLET PO (09:25)
[2024-01-23] MEDS: PARoxetine HCL 30 MG TABLET 60 MG PO (09:27)
[2024-01-23] MEDS: Pramipexole Di-HCL 0.125 MG TABLET PO (09:27)
[2024-01-23] MEDS: Gabapentin 400 MG CAPSULE 800 MG PO (09:27)
[2024-01-23] MEDS: methADONE HCl 20 MG/2 ML ORAL.CONC 165 MG PO (09:47)
[2024-01-23] MEDS: Nicotine Polacrilex Lozenge 2 MG LOZENGE BUCCAL (09:49)
--- NOTE | 2024-01-23 10:08 | PC.NURSE ---
Assumed care of patient at 0945, patient moved from ED 6 to 5, offers to complaints to this RN. Continue plan of care for recovery follow up
--- NOTE | 2024-01-23 10:28 | PC.NURSE ---
This RN called pharmacy for missing Fenofibrate
[2024-01-23] MEDS: Fenofibrate 54 MG TABLET PO (11:02)
--- NOTE | 2024-01-23 11:57 | MHC.CARE ---
Pt does not meet IPLOC and will be referred to the Recovery Team for resources and a possible D/C.
--- NOTE | 2024-01-23 12:05 | MHC.RECOVRN ---
Met with pt in [facility] after cleared by CARE Team. Pt laying in bed, asleep, wakes to voice but difficult to engage in conversation. T/w informed pt he does not meet criteria for ATS due to discharging from [facility] on 01/19 and presenting to [facility] 01/20. Informed pt CSS referrals could be made, however, pt would need to follow up from the community. Pt voices displeasure with this, requesting to speak with CARE supervisor parking lot. After speaking with bonding supervisor, pt agreeable to CSS referrals. Pt denies other questions or concerns for t/w. Plan to dc and follow up from the community. CSS referrals placed and information provided to patient.
[2024-01-23] MEDS: Naloxone HCl Nasal TAKE HOME 4 MG SPRAY 8 MG NOSTRILALT (12:12)
[2024-01-23 12:31] VITALS: BP 111/68; PULSE 63; RESP 16; TEMP 36.8
== END 2024-01-23 12:32 | disposition home or self-care (01) ==
PROVIDERS: Emergency Medicine; Emergency Provider Emergency Medicine Emergency Medical Services; PCP Nurse Practitioner Family
DX: F33.1 Major depressive disorder, recurrent, moderate (principal); R45.851 Suicidal ideations; F14.10 Cocaine abuse, uncomplicated; F17.210 Nicotine dependence, cigarettes, uncomplicated; F12.90 Cannabis use, unspecified, uncomplicated; Z71.51 Drug abuse counseling and surveillance of drug abuser; Z51.81 Encounter for therapeutic drug level monitoring
CPT/HCPCS: 36415; 80053; 80143; 80179; 80307; 81001; 85025; 99285; S9485

== ENCOUNTER 2024-08-14 08:22 | Emergency (ER) | payer OTHER, SELFPAY ==
[2024-08-14 08:56] VITALS: BP 112/73; PULSE 90; RESP 16; TEMP 36.3; O2SAT 97; BMI 32.9
--- NOTE | 2024-08-14 10:08 | ED_ITS ---
HPI - Psych General Chief Complaint: Psychiatric Symptoms Stated Complaint: SI, off meds Time Seen by Provider: 08/14/24 10:02 Source: patient Mode of arrival: ambulatory Limitations: no limitations History of Present Illness ED Provider: AIDEE KAUFMAN PA-C HPI Narrative: 33 year old male with pmhx significant for PTSD, MDD, mood disorder, polysubstance use disorder on methadone self presents to the ED today for evaluation of SI. He reports feeling like this for a few days. He has a plan to OD on his home medications or run out into traffic. He did not attempt to OD on his meds today. In fact he has been noncompliant with his home medications over the last 2-3 days. He admits to previous SI attempts. Denies HI. Denies AH/VH/TH. Denies illicit substance use. He was last dosed with methadone this morning prior to presentation. Admits to binging etoh recently. Endorses consuming 2-3 sleeves of liquor/ daily. He last drank yesterday. Admits to hx of etoh withdrawal. Denies history of withdrawal seizures, DT. He does not feel as though he is currently withdrawing. He is requesting to speak to our recovery team about detox. His only physical concern at present is left sided lower back pain x2 days. He can not recall if he was lifting anything heavy recently. He typically takes a muscle relaxer for this. Denies any trauma/ injury to back. Denies IVDU. Denies hx of spinal surgery. Denies bowel or bladder incontinence or retention, saddle anesthesia, numbness/tingling/weakness of the lower extremities. Related Data Home Medications ?Medication ?Instructions ?Recorded ?Confirmed methadone 10 mg/mL oral 185 mg PO DAILY 08/14/24 08/14/24 concentrate (Methadose) Previous Rx's ?Medication ?Instructions ?Recorded atorvastatin 10 mg tablet 10 mg PO DAILY 30 days #30 tabs 01/10/24 baclofen 20 mg tablet 20 mg PO BID 30 days #60 tabs 01/10/24 chlorpromazine 200 mg tablet 200 mg PO BEDTIME 30 days #30 tabs 01/10/24 chlorpromazine 25 mg tablet 25 mg PO TID PRN mild agitation 30 01/10/24 days #90 tabs clonidine HCl 0.1 mg tablet 0.1 mg PO TID@0900,1300,1700 01/10/24 Anxiety 30 days #90 tabs docusate sodium 100 mg capsule 100 mg PO BID 30 days #60 caps 01/10/24 gabapentin 800 mg tablet 800 mg PO TID 30 days #90 tabs 01/10/24 hydroxyzine HCl 50 mg tablet 50 mg PO QID PRN Anxiety 30 days 01/10/24 #90 tabs melatonin 3 mg tablet 3 mg PO BEDTIME PRN Insomnia 30 01/10/24 days #30 tabs naproxen 500 mg tablet 500 mg PO BID PRN pain #60 tabs 01/10/24 nicotine (polacrilex) 2 mg buccal 2 mg PO Q2H PRN Nicotine Cravings 01/10/24 lozenge 30 days #108 ea nicotine 21 mg/24 hr daily 1 patch topical DAILY PRN nicotine 01/10/24 transdermal patch cravings 28 days #28 ea paroxetine HCl 30 mg tablet 60 mg (2 x 30 mg) PO DAILY 30 days 01/10/24 #60 tabs pramipexole 0.125 mg tablet 0.125 mg PO DAILY 30 days #30 tabs 01/10/24 prazosin 2 mg capsule 4 mg (2 x 2 mg) PO BEDTIME 30 days 01/10/24 #60 caps sennosides 8.6 mg tablet (senna) 17.2 mg (2 x 8.6 mg) PO DAILY 30 01/10/24 days #60 tabs Allergies Allergy/AdvReac Type Severity Reaction Status Date / Time amoxicillin Allergy Hives Verified 08/14/24 08:57 Penicillins [PCN] Allergy Hives Verified 08/14/24 08:57 seafood Allergy Difficulty Verified 08/14/24 08:57 Breathing Review of Systems 2 Review of Systems: Constitutional: No fever, chills, fatigue, night sweats, weight changes ENT/Mouth: No ear pain, hearing loss, nasal congestion, sinus pain, rhinorrhea, sore throat Eyes: No eye pain, swelling, redness, vision changes, discharge Cardio: No chest pain, palpitations, CARRIZALES, orthopnea, peripheral edema Pulm: No SOB, cough, sputum, wheezing, dyspnea, hemoptysis GI: No nausea, vomiting, hematemesis, abdominal pain, diarrhea, constipation, hematochezia, melena : No irregular bleeding, dysuria, frequency, urgency, hesitancy, hematuria, flank pain, urinary flow changes, urinary incontinence or retention MSK: No back pain, neck pain, joint pain, myalgias Skin: No lesions, rashes Neuro: No weakness, numbness, paresthesias, LOC, dizziness, headache Psych: No anxiety/panic, depression, HI, AH/VH, +SI All other systems reviewed and are negative. [facility] Past Medical History Attestation statement: The following information was validated with the patient. Source: old records reviewed and nursing notes reviewed Medical History Opioid use disorder Depression Antisocial personality disorder Cocaine use disorder, moderate, dependence Benzodiazepine abuse MDD (major depressive disorder), recurrent, severe, with psychosis Alcohol use disorder Mood disorder PTSD (post-traumatic stress disorder) Polysubstance (including opioids) dependence, daily use Social History Social History Household Members: None Household Members Other:: homeless Housing: Homeless Do you presently have visiting nurse or other home services: No Unable to assess alcohol history related to: Unknown Alcohol intake: current Alcohol intake frequency: a few times a week Alcohol type: beer and hard liquor Comment: Pt ambulates independently Patient Tobacco Use Status: Current everyday Tobacco user Tobacco use type: Cigarette Cigarette Packs Per Day: 1 Cigarettes Per Day: 20.0 Years Smoked: 20 Smoked in Last 30 Days: Yes e-Cigarette/Vaping Use: Never Used Second Hand Smoke Exposure: Yes Use of substances other than those prescribed or required for medical reasons: Yes Substance Use Type: Crack/Cocaine and Marijuana Advance Directives: No Advance Directives Information Provided: Yes Do you have a plan to hurt others: No Plan service: No Current occupational status: unemployed Sexual orientation: Straight/Heterosexual Physical Exam 2 Vital Signs: Vital Signs: Last Vital Signs Temp 97.3 F 08/14/24 08:56 Pulse 90 08/14/24 08:56 Resp 16 08/14/24 08:56 BP 112/73 08/14/24 08:56 Pulse Ox 97 08/14/24 08:56 O2 Del Method Room Air 08/14/24 08:56 BMI result Body Mass Index 32.9 vital signs stable, not tachycardic, afebrile General: Well appearing, in no acute distress. Skin: Warm, dry, intact. No rashes or lesions. Head: Normocephalic, atraumatic. EENT: Hearing is intact b/l. Conjunctiva clear. PERRLA. EOM intact. Moist mucous membranes.? Neck: Supple without LAD Cardiac: Chest wall symmetric. RRR Lungs: Normal respiratory effort without accessory muscle use. CTA bilaterally Abdomen: Soft, non-tender, non-distended. No rebound tenderness or guarding. Positive BS x4. Back:+tender to palpation along left lower lumbar paraspinal musculature. There is no midline spinous tenderness or step-off deformity. No fluctuance, warmth. Ext: Upper and lower extremities atraumatic, without tenderness, deformity, swelling or erythema Neuro: AOx3. Normal speech. CN 2-12 grossly intact. Strength 5/5 intact throughout. No saddle anesthesia. Sensation intact to light touch. NV intact distally. Ambulating with steady gait. Psych: Appropriate mood and affect. Responds appropriately to questions. Course Course Course Narrative: 1217 -- CBC without leukocytosis or left shift. Normocytic anemia, chronic when compared to priors. H&H around baseline. Chemistry without acute electrolyte abnormality requiring intervention. Kidney function around baseline. Liver function around baseline. AST elevated at 281 likely secondary to recent binge drinking. he does not endorses abd pain, N/V. urine without infection. UDS positive for methadone, cocaine, marijuana. Ethanol, acetaminophen and salicylates undetectable. > at this time, patient is medically cleared for care team/recovery consultations. placed in physician observation. 1437 -- CIWA 2 - no concern for acute withdrawal. care team evaluated patient. no longer endorsing SI. I spoke w/ Magda - patient is detox bed search. will continue to monitor for discharge needs. Medications Administered Discontinued Medications Generic Name Dose Route Start Last Admin Trade Name Freq PRN Reason Stop Dose Admin Atorvastatin Calcium 10 mg 08/14/24 10:45 08/14/24 11:24 Atorvastatin Calcium 10 Mg Tablet PO 10 mg DAILY BESSIE Administration Docusate Sodium 100 mg 08/14/24 10:45 08/14/24 11:24 Docusate Sodium 100 Mg Capsule PO 100 mg BID BESSIE Administration Gabapentin 800 mg 08/14/24 10:45 08/14/24 11:25 Gabapentin 400 Mg Capsule PO 800 mg TID BESSIE Administration Ibuprofen 600 mg 08/14/24 10:14 08/14/24 10:24 Ibuprofen 600 Mg Tablet PO 08/14/24 10:15 600 mg ONCE ONE Administration Nicotine 21 mg 08/14/24 10:42 08/14/24 11:25 Nicotine 21 Mg Patch.Td24 TRANSDERMA 21 mg DAILY PRN Administration nicotine cravings Paroxetine HCl 60 mg 08/14/24 10:45 08/14/24 11:25 Paroxetine Hcl 30 Mg Tablet PO 60 mg DAILY BESSIE Administration Medical Decision Making Medical Decision Making [facility] Narrative: 33 year old male with pmhx significant for PTSD, MDD, mood disorder, polysubstance use disorder on methadone self presents to the ED today for evaluation of SI. Vital signs are stable. Afebrile. Not tachycardic. He was nontoxic appearing in no acute distress. Exam is quite benign. Nonfocal. On exam of back, there is tenderness to palpation over the left lumbar paraspinal musculature. There is no midline spinous tenderness or step-off deformity. No fluctuance or warmth. ambulating w/ steady gait. nv intact distally. Differential diagnosis includes anemia, electrolyte abnormality, dehydration, polysubstance abuse, ETOH intoxication versus withdrawal, depression, lumbar strain v spasm Unlikely cauda equina, Guillain-[place], epidural abscess, cord compression. Plan for medical clearance, CIWA, and care team/ addiction med consult. Differential Diagnosis Differential Diagnoses: The differential diagnosis associated with the presentation includes as above. Admission/Observation Consideration of admission/observation: Escalation of care including admission/observation considered Lab Data [facility] Lab Attestation statement: I reviewed the patient's lab results. as above. 08/14/24 10:16 08/14/24 10:16 Labs: Lab Results 08/14/24 08/14/24 Range/Units 10:04 10:16 WBC 9.2 (4.8-10.8) X10*3/uL RBC 4.40 L (4.60-5.80) X10*6/uL Hgb 11.8 L (14.0-18.0) g/dl Hct 35.6 L (42.0-52.0) % MCV 80.9 (80.0-98.0) fL MCH 26.8 L (27.0-33.0) pg MCHC 33.1 (31.0-36.0) g/dl RDW 14.8 (11.0-16.0) % Plt Count 248 (160-400) X10*3/uL MPV 10.1 (9.4-12.4) fL Immature Gran % (Auto) 0.4 (0.0-0.4) % Neut % (Auto) 68.9 (45-73) % Lymph % (Auto) 20.4 (20-40) % [place] % (Auto) 9.6 (2-11) % Eos % (Auto) 0.4 (0-4) % Baso % (Auto) 0.3 (0-2) % Lymph # (Auto) 1.9 (1.2-4.9) X10*3/uL [place] # (Auto) 0.9 (0.1-1.2) X10*3/uL Eos # (Auto) 0.0 (0.0-0.4) X10*3/uL Baso # (Auto) 0.0 (0.0-0.2) X10*3/uL Abs Immat Gran (auto) 0.04 H (0.00-0.03) X10*3/uL Absolute Neuts (auto) 6.3 (2.0-8.3) x10*3/uL Absolute Nucleated RBC 0.000 (0.0-0.012) X10*3/uL Nucleated RBC % (auto) 0.0 (0.0-0.2) /100WBC Sodium 139 (135-145) mmol/L Potassium 4.6 D (3.3-5.1) mmol/L Chloride 102 (96-108) mmol/L Carbon Dioxide 28 (22-29) mmol/L Anion Gap 14 (12-20) BUN 29 H (9-16) mg/dL Creatinine 0.87 (0.5-1.4) mg/dL Estim Creat Clear Calc 145.8 Estimated GFR > 60 Random Glucose 86 (60-115) mg/dL Calcium 9.3 (8.4-10.2) mg/dL Total Bilirubin 0.6 (0.0-1.0) mg/dL AST 281 H (5-37) U/L ALT 62 H (0-40) U/L Alkaline Phosphatase 65 (39-117) U/L Total Protein 8.4 H (6.5-8.0) g/dL Albumin 4.8 (3.5-5.0) g/dL Urine Color Yellow Urine Appearance Clear Urine pH 6.5 (5.0-9.0) Ur Specific [place] >= 1.030 H (1.005-1.025) Urine Protein 100 (2+) H (Neg-Trace) mg/dL Urine Glucose (UA) Negative (Negative) mg/dL Urine Ketones Trace (Negative) mg/dL Urine Blood Large (3+) H (Negative) Urine Nitrite Negative (Negative) Ur Leukocyte Esterase Negative (Negative) Urine RBC 0-2 (0-2) /HPF Urine WBC 0-5 (0-5) /HPF Ur Squamous Epith Cells 0-2 (0-2) /HPF Urine Bacteria None Seen (None Seen) Hyaline Casts 0-2 (0-2) /LPF Salicylates < 5.0 L (15-30) mg/dL Urine Opiates Screen Not Detected (Not Detect) Ur Buprenorphine Scrn Not Detected (Not Detect) ng/mL Ur Oxycodone Screen Not Detected (Not Detect) ng/mL Urine Methadone Screen Positive H (Not Detect) ng/mL Urine Fentanyl Screen Not Detected (Not Detect) Acetaminophen < 3 (<30) mcg/mL Ur Barbiturates Screen Not Detected (Not Detect) Ur Phencyclidine Scrn Not Detected (Not Detect) Ur Amphetamines Screen Not Detected (Not Detect) U Benzodiazepines Scrn Not Detected (Not Detect) Urine Cocaine Screen POSITIVE H (Not Detect) U Marijuana (THC) Screen POSITIVE H (Not Detect) Ethyl Alcohol < 10 mg/dL External Record Review External record reviewed: Inpatient record Prescription Management I considered prescription management with: Pain Medication Chronic Conditions Patient?s care impacted by: Other (MDD, PTSD, Mood disorder, polysubstance abuse) Social Determinants Patient?s care significantly limited by Social Determinants of Health including: Other Social Determinant of Health Critical Care Time Critical Care Time Critical Care Time: No Discharge Plan Discharge Clinical Impression: Suicidal ideation, ETOH abuse Patient Disposition: Still a Patient Prescriptions: No Action chlorpromazine 25 mg Tablet 25 mg PO TID PRN (Reason: mild agitation) 30 Days Qty: 90 1RF sennosides [senna] 8.6 mg tablet 17.2 mg PO DAILY 30 Days Qty: 60 1RF clonidine HCl 0.1 mg tablet 0.1 mg PO TID@0900,1300,1700 30 Days Qty: 90 1RF atorvastatin 10 mg tablet 10 mg PO DAILY 30 Days Qty: 30 1RF hydroxyzine HCl 50 mg tablet 50 mg PO QID PRN (Reason: Anxiety) 30 Days Qty: 90 1RF melatonin 3 mg tablet 3 mg PO BEDTIME PRN (Reason: Insomnia) 30 Days Qty: 30 1RF baclofen 20 mg tablet 20 mg PO BID 30 Days Qty: 60 1RF gabapentin 800 mg tablet 800 mg PO TID 30 Days Qty: 90 1RF paroxetine HCl 30 mg tablet 60 mg PO DAILY 30 Days Qty: 60 1RF nicotine 21 mg/24 hr patch 24 hour 1 patch topical DAILY PRN (Reason: nicotine cravings) 28 Days Qty: 28 0RF pramipexole 0.125 mg tablet 0.125 mg PO DAILY 30 Days Qty: 30 1RF docusate sodium 100 mg capsule 100 mg PO BID 30 Days Qty: 60 1RF Rx Instructions: hold for loose stool chlorpromazine 200 mg tablet 200 mg PO BEDTIME 30 Days Qty: 30 1RF prazosin 2 mg capsule 4 mg PO BEDTIME 30 Days Qty: 60 1RF naproxen 500 mg tablet 500 mg PO BID PRN (Reason: pain) Qty: 60 0RF nicotine (polacrilex) 2 mg lozenge 2 mg PO Q2H PRN (Reason: Nicotine Cravings) 30 Days Qty: 108 0RF Rx Instructions: DNE 20/DAY methadone [Methadose] 10 mg/mL concentrate 185 mg PO DAILY Rx Instructions: Partial Fill upon patient request. Interventions: [place]-Suicide Risk Severity Scale Last Done: 08/14/24 11:31 Admission Worksheet (ED) Last Done: 08/14/24 13:52 Discharge Date/Time: 08/14/24 13:54 Print Language: Korean
[2024-08-14] MEDS: Ibuprofen 600 MG TABLET PO (10:24)
[2024-08-14 10:28] LABS: MANUAL DIFF FLAG NO
[2024-08-14 10:33] LABS: Appearance Urine Clear; Color Urine Yellow; Glucose Urine UA Negative (Negative); Leukocyte Esterase Urine Negative (Negative); Nitrite Urine Negative (Negative); PH 6.5 (5.0-9.0); Specific Gravity - Urine >= 1.030 (1.005-1.025); UMIC TRIGGER UACC YES; Urine Blood Large (3+) (Negative); Urine Ketones Trace mg/dL (Negative); Urine Protein 100 (2+) mg/dL (Neg-Trace)
[2024-08-14 10:35] LABS: Basophils Percent Auto 0.3 % (0-2); Eosinophils Percent Auto 0.4 % (0-4); Hematocrit 35.6 % (42.0-52.0); Hemoglobin 11.8 g/dl (14.0-18.0); Imm Gran Abs Auto 0.04 X10*3/uL (0.00-0.03); Imm Gran Pct Auto 0.4 % (0.0-0.4); Lymphocytes Absolute Auto 1.9 X10*3/uL (1.2-4.9); Lymphocytes Percent Auto 20.4 % (20-40); Mean Corpuscular HGB Conc 33.1 g/dl (31.0-36.0); Mean Corpuscular Hemoglobin 26.8 pg (27.0-33.0); Mean Corpuscular Volume 80.9 fL (80.0-98.0); Mean Platelet Volume 10.1 fL (9.4-12.4); Monocytes Absolute Auto 0.9 X10*3/uL (0.1-1.2); Monocytes Percent Auto 9.6 % (2-11); Neutrophils Absolute Auto 6.3 x10*3/uL (2.0-8.3); Neutrophils Percent Auto 68.9 % (45-73); Platelet Count 248 X10*3/uL (160-400); Red Cell Distribution Width 14.8 % (11.0-16.0); White Blood Count 9.2 X10*3/uL (4.8-10.8)
--- NOTE | 2024-08-14 10:35 | PC.NURSE ---
med rec completed. provider notified/aware. methadone verification form filled out/faxed/placed in pt's chart.
[2024-08-14 10:42] LABS: Bacteria Urine None Seen (None Seen); Hyaline Casts Urine 0-2 /LPF (0-2); RBC Urine 0-2 /HPF (0-2); Squamous Epithelial Cell Urine 0-2 /HPF (0-2); WBC Urine 0-5 /HPF (0-5)
[2024-08-14 10:44] LABS: Amphetamine Screen Urine Not Detected (Not Detect); Barbiturates, Urine Not Detected (Not Detect); Benzodiazepines Screen Urine Not Detected (Not Detect); Buprenorphine Scr Not Detected (Not Detect); Cannabinoid Screen Urine POSITIVE (Not Detect); Cocaine Screen Urine POSITIVE (Not Detect); Fentanyl, urine Not Detected (Not Detect); Methadone Screen, Urine Positive (Not Detect); Opiate Screen Urine Not Detected (Not Detect); Oxycodone Screen Urine Not Detected (Not Detect); Phencyclidine Screen Urine Not Detected (Not Detect)
--- NOTE | 2024-08-14 10:48 | HE.PHANOTE ---
METHADONE Pt last received 185mg on 08/14/24 @ 0719, per RG Finch, at [facility], .
[2024-08-14 10:50] LABS: Acetaminophen LAB < 3 mcg/mL (<30); Salicylate < 5.0 mg/dL (15-30)
[2024-08-14 10:51] LABS: Alanine Aminotransferase 62 U/L (0-40); Albumin Level 4.8 g/dL (3.5-5.0); Alkaline Phosphatase 65 U/L (39-117); Anion Gap 14 (12-20); Aspartate Amino Transferase 281 U/L (5-37); Bilirubin Total 0.6 mg/dL (0.0-1.0); Blood Urea Nitrogen 29 mg/dL (9-16); Calcium 9.3 mg/dL (8.4-10.2); Carbon Dioxide 28 mmol/L (22-29); Chloride 102 mmol/L (96-108); Creatinine Clr Calc Pharmacy 145.8; Estimated Glomerular Filt Rate > 60; Ethanol < 10 mg/dL; Glucose Random 86 mg/dL (60-115); Potassium 4.6 mmol/L (3.3-5.1); Sodium 139 mmol/L (135-145); Total Protein 8.4 g/dL (6.5-8.0)
--- NOTE | 2024-08-14 11:20 | PC.NURSE ---
pt speaking w/ care team at this time.
[2024-08-14] MEDS: Atorvastatin Calcium 10 MG TABLET PO (11:24)
[2024-08-14] MEDS: Docusate Sodium 100 MG CAPSULE PO (11:24)
[2024-08-14] MEDS: PARoxetine HCL 30 MG TABLET 60 MG PO (11:25)
[2024-08-14] MEDS: Nicotine 21 MG PATCH.TD24 TRANSDERMA (11:25)
[2024-08-14] MEDS: Gabapentin 400 MG CAPSULE 800 MG PO ×2 (11:25→16:15)
--- NOTE | 2024-08-14 11:30 | PC.NURSE ---
pt medicated per provider order.
--- NOTE | 2024-08-14 15:13 | MHC.CARE ---
Patient evaluated by the CARE Team, he requested detox and was referred to the Recovery Team. Provider, MONICA Larson updated
--- NOTE | 2024-08-14 15:52 | MHC.RECOVRN ---
Addendum entered by Kaitlin Daley RN 08/14/24 16:39: Care team able to obtain photo ID face sheet and will fax over. Care Team changed his intake to 8PM and will arrange Lyft. Pt updated Original Note: Received referral for [facility] bed search for pt. in 05 Met with pt who reports ongoing ETOH intake of 2 pints/day x 3 months with last use yesterday Also reports cocaine use with last use yesterday of 1 gram via IV route. Pt is on methadone for OUD. Pt also reports marijuana use. Was able to get pt intake assessment with [facility] at [phone]. Pt was accepted to [facility] LOC pending receipt of photo ID sent to [phone]. Care team working on obtaining photo ID and will assist with lyft transport. Pt's intake appt is at 5PM. If he arrives late he can wait for the next intake slot in their waiting area.
[2024-08-14] MEDS: cloNIDine HCL 0.1 MG TABLET PO (16:15)
[2024-08-14 16:31] VITALS: BP 105/76; PULSE 82; RESP 16; TEMP 36.5; O2SAT 96
--- NOTE | 2024-08-14 18:01 | PC.NURSE ---
pt provided w/ personal belongings and d/c paperwork. pt being transported to detox facility in [place] via lyft. see care team notes for further details.
== END 2024-08-14 18:07 | disposition home or self-care (01) ==
PROVIDERS: Emergency Medicine; Emergency Provider Emergency Medicine Emergency Medical Services
DX: R45.851 Suicidal ideations (principal); M54.50 Low back pain, unspecified; F43.10 Post-traumatic stress disorder, unspecified; Z91.148 Patient's other noncompliance with medication regimen for other reason; Z51.81 Encounter for therapeutic drug level monitoring; Z79.899 Other long term (current) drug therapy; F17.210 Nicotine dependence, cigarettes, uncomplicated
CPT/HCPCS: 36415; 80053; 80143; 80179; 80307; 81001; 85025; 99285; S9485

== ENCOUNTER 2024-09-09 18:54 | Inpatient (IN) | payer OTHER, SELFPAY ==
[2024-09-09 19:11] VITALS: BP 118/71; PULSE 101; RESP 20; TEMP 36.7; O2SAT 97; BMI 31.7
--- NOTE | 2024-09-09 19:12 | ED_ITS ---
HPI - General Adult General Chief complaint: General Medical Stated complaint: missed metadone; suicidal Time Seen by Provider: 09/09/24 20:59 Source: patient Mode of arrival: ambulatory Limitations: no limitations History of Present Illness ED Provider: Dr. Kevin Jo HPI narrative: 33-year-old male with a history of opiate use disorder, depression, antisocial personality, cocaine use disorder, benzodiazepine abuse, major depression with recurrent, severe psychosis, alcohol use disorder, mood disorder, PTSD, polysubstance use disorder, PTSD, dissociative identity disorder who presents emergency department for evaluation of body pain which he believes may be secondary to rhabdomyolysis from walking around a lot, suicidal ideation with a plan to overdose on cocaine and requesting a methadone dose. The patient states that he was at the [facility] for psychiatric care and was released 2 weeks ago. He states he lives in his area. Patient states that he has been on methadone since 2016 and he has not used opiates since then. Patient states that he has an intake appointment with a methadone clinic on 09/13/2024 and was advised to get his methadone doses from local emergency departments until he can get re-evaluated at the clinic. Patient states that he went to [facility] Emergency Department yesterday and was given methadone 185 mg. Patient states that he has been feeling suicidal since yesterday. He states that he has a attempted to overdose in the past on cocaine and he feels like he does not get help people overdose again. He does admit to using injection cocaine but denies other drug use. Review of systems was negative for fever, chills, sore throat, cough, chest pain, shortness of breath, nausea, vomiting, diarrhea. Related Data Home Medications ?Medication ?Instructions ?Recorded ?Confirmed methadone 10 mg/mL oral 185 mg PO DAILY 08/14/24 09/09/24 concentrate (Methadose) prazosin 2 mg capsule 6 mg PO BEDTIME 09/09/24 09/09/24 Previous Rx's ?Medication ?Instructions ?Recorded atorvastatin 10 mg tablet 10 mg PO DAILY 30 days #30 tabs 01/10/24 baclofen 20 mg tablet 20 mg PO BID 30 days #60 tabs 01/10/24 chlorpromazine 200 mg tablet 200 mg PO BEDTIME 30 days #30 tabs 01/10/24 chlorpromazine 25 mg tablet 25 mg PO TID PRN mild agitation 30 01/10/24 days #90 tabs clonidine HCl 0.1 mg tablet 0.1 mg PO TID@0900,1300,1700 01/10/24 Anxiety 30 days #90 tabs docusate sodium 100 mg capsule 100 mg PO BID 30 days #60 caps 01/10/24 gabapentin 800 mg tablet 800 mg PO TID 30 days #90 tabs 01/10/24 hydroxyzine HCl 50 mg tablet 50 mg PO QID PRN Anxiety 30 days 01/10/24 #90 tabs naproxen 500 mg tablet 500 mg PO BID PRN pain #60 tabs 01/10/24 nicotine (polacrilex) 2 mg buccal 2 mg PO Q2H PRN Nicotine Cravings 01/10/24 lozenge 30 days #108 ea nicotine 21 mg/24 hr daily 1 patch topical DAILY PRN nicotine 01/10/24 transdermal patch cravings 28 days #28 ea paroxetine HCl 30 mg tablet 60 mg (2 x 30 mg) PO DAILY 30 days 01/10/24 #60 tabs pramipexole 0.125 mg tablet 0.125 mg PO DAILY 30 days #30 tabs 01/10/24 sennosides 8.6 mg tablet (senna) 17.2 mg (2 x 8.6 mg) PO DAILY 30 01/10/24 days #60 tabs Allergies Allergy/AdvReac Type Severity Reaction Status Date / Time amoxicillin Allergy Hives Verified 09/09/24 19:11 Penicillins [PCN] Allergy Hives Verified 09/09/24 19:11 seafood Allergy Difficulty Verified 09/09/24 19:11 Breathing Review of Systems 2 Review of Systems: Yes all other systems are reviewed and are negative [facility] Past Medical History [facility] Narrative: Social history: The patient states he smokes 2-3 cigarettes per day. He denies alcohol use. He does use injection cocaine he last injected 2 days prior. Medical History (Updated 09/12/24 @ 18:08 by Cheryl Saldana CNP) Polysubstance use disorder Opioid use disorder Depression Antisocial personality disorder Cocaine use disorder, moderate, dependence Benzodiazepine abuse MDD (major depressive disorder), recurrent, severe, with psychosis Alcohol use disorder Mood disorder PTSD (post-traumatic stress disorder) Polysubstance (including opioids) dependence, daily use Social History Social History Household Members: None Household Members Other:: homeless Housing: Homeless Do you presently have visiting nurse or other home services: No Unable to assess alcohol history related to: Unknown Alcohol intake: current Alcohol intake frequency: a few times a week Alcohol type: beer and hard liquor Comment: Pt ambulates independently Patient Tobacco Use Status: Current everyday Tobacco user Tobacco use type: Cigarette Cigarette Packs Per Day: 1 Cigarettes Per Day: 5 Years Smoked: 20 Smoked in Last 30 Days: Yes e-Cigarette/Vaping Use: Never Used Patient Interested in Nicotine Replacement: Yes Patient Given Instructions on How to Stop Smoking: Yes Date Education Initiated: 09/10/24 Second Hand Smoke Exposure: No Use of substances other than those prescribed or required for medical reasons: Yes Substance Use Type: Crack/Cocaine and Marijuana Substance Use Frequency: Chronic Longstanding Last Used Substance: Just Prior to Admission Currently Displaying Signs/Symptoms of Drug Intoxication Withdrawal: No Any prior treatment program specific to substance use: Yes Have you been hit, kicked, punched, or otherwise hurt by someone within the past year? If so, by whom?: No Do you feel safe in your current relationship?: No Current Relationship Is there a partner from a previous relationship who is making you feel unsafe now?: No Are you made to feel afraid or neglected: No Advance Directives: No Advance Directives Information Provided: No Do you have thoughts of harming others: None Do you have a plan to hurt others: No Plan Recently lost weight without trying: No Eating poorly because of decreased appetite: No Nutrition Risks: No Nutritional Risk Poor oral hygiene: No service: No Current occupational status: unemployed Sexual orientation: Straight/Heterosexual Physical Exam ED Vital Signs: Vital Signs - 24 hr 09/09/24 19:11 Temperature 98.1 F Pulse Rate 101 H Respiratory Rate 20 Blood Pressure 118/71 Pulse Oximetry 97 Oxygen Delivery Method Room Air BMI result Body Mass Index 31.7 Vital signs were normal Exam: General: Awake, alert in no distress Head: Normocephalic, atraumatic EENT: PERRL, Lids normal, sclera normal, conjunctiva normal, nose normal , ears normal, throat without erythema or exudates Neck: Supple, no adenopathy Lung: breath sounds symmetric, no wheezing, rales or rhonchi Chest: symmetric movement, nontender Heart: regular rate and rhythm, normal S1, S2 no murmurs or rubs Abdomen: soft, non-tender, nondistended, normal bowel sounds Back: no vertebral tenderness, no CVAT Extremities: no deformities, moves all extremities symmetrically Neuro: Awake, alert, oriented, normal speech, cranial nerves intact, moves all extremities symmetrically Psych: Pleasant, cooperative Course Course Course Narrative: This is an RME performed by Rosana Saldana CNP: Additional HPI, ROS, PE not included below will be deferred to primary provider. patient is a 33-year-old male who presents emergency department for evaluation, first I think I have rhabdo again, my whole body hurts so bad reports hx of similar in the past due to excessive walking. Complaining of blurred vision. Additionally states This shit is making me crazy like I just want to kill myself, I've got a lot of mental health issues, this is just the tip of the iceberg . Endorses plan to overdose on cocaine. Denies homicidal ideations. Released from a psych hospital in [facility] 2 weeks ago, [facility]. States came back to [facility] yesterday, was dosed with methadone 185mg at [facility], has an appointment with [facility] in [place] on 09/13/2024. Plan: serum labs, toxicology Medications Administered Discontinued Medications Generic Name Dose Route Start Last Admin Trade Name Cameronq PRN Reason Stop Dose Admin Atorvastatin Calcium 10 mg 09/10/24 09:00 09/13/24 08:27 Atorvastatin Calcium 10 Mg Tablet PO 10 mg DAILY BESSIE Administration Baclofen 20 mg 09/09/24 23:15 09/13/24 08:27 Baclofen 20 Mg Tablet PO 20 mg BID BESSIE Administration Chlorpromazine HCl 200 mg 09/09/24 23:15 09/12/24 20:42 Chlorpromazine Hcl 100 Mg Tablet PO 200 mg BEDTIME BESSIE Administration Clonidine HCl 0.1 mg 09/10/24 09:00 09/13/24 08:27 Clonidine Hcl 0.1 Mg Tablet PO 0.1 mg TID@0900,1300,1700 BESSIE Administration Protocol Docusate Sodium 100 mg 09/10/24 09:00 09/13/24 08:27 Docusate Sodium 100 Mg Capsule PO 100 mg BID BESSIE Administration Gabapentin 800 mg 09/10/24 09:00 09/10/24 15:47 Gabapentin 400 Mg Capsule PO 800 mg TID BESSIE Administration Gabapentin 800 mg 09/11/24 15:00 09/11/24 16:33 Gabapentin 600 Mg Tablet PO Not Given TID BESSIE Gabapentin 800 mg 09/11/24 16:30 09/13/24 08:27 Gabapentin 400 Mg Capsule PO 800 mg TID BESSIE Administration Hydroxyzine HCl 50 mg 09/09/24 23:10 09/12/24 20:42 Hydroxyzine Hcl 50 Mg Tablet PO 50 mg QID PRN Administration Anxiety Methadone HCl 185 mg 09/10/24 09:00 09/13/24 07:53 Methadone Hcl 20 Mg/2 Ml Oral.Conc PO 185 mg DAILY BESSIE Administration Nicotine 21 mg 09/12/24 10:02 09/13/24 09:01 Nicotine 21 Mg Patch.Td24 TRANSDERMA 21 mg DAILY PRN Administration Nicotine Cravings Nicotine Polacrilex 4 mg 09/10/24 15:06 09/13/24 09:26 Nicotine Polacrilex 2 Mg Gum BUCCAL 4 mg Q2H PRN Administration Nicotine Cravings Olanzapine 5 mg 09/10/24 15:06 09/12/24 20:42 Olanzapine 5 Mg Tablet PO 5 mg TID PRN Administration agitation Paroxetine HCl 60 mg 09/10/24 09:00 09/13/24 08:27 Paroxetine Hcl 30 Mg Tablet PO 60 mg DAILY BESSIE Administration Perphenazine 4 mg 09/11/24 11:30 09/13/24 08:27 Perphenazine 4 Mg Tablet PO 4 mg BID BESSIE Administration Pramipexole Dihydrochloride 0.125 mg 09/10/24 09:00 09/13/24 08:27 Pramipexole Di-Hcl 0.125 Mg Tablet PO 0.125 mg DAILY BESSIE Administration Prazosin HCl 1 mg/ Prazosin 6 mg 09/09/24 23:30 09/12/24 20:41 HCl 5 mg PO 6 mg BEDTIME BESSIE Administration Senna 17.2 mg 09/10/24 09:00 09/13/24 08:27 Sennosides 8.6 Mg Tablet PO 17.2 mg DAILY BESSIE Administration Medical Decision Making Medical Decision Making MDM Narrative: 33-year-old male with a history of opiate use disorder, depression, antisocial personality, cocaine use disorder, benzodiazepine abuse, major depression with recurrent, severe psychosis, alcohol use disorder, mood disorder, PTSD, polysubstance use disorder, PTSD, dissociative identity disorder who presents emergency department for evaluation of body pain which he believes may be secondary to rhabdomyolysis from walking around a lot, suicidal ideation with a plan to overdose on cocaine and requesting a methadone dose. Patient does admit to feeling suicidal thoughts, he denies homicidal thoughts. Vital signs were normal. Physical examination was unremarkable. Differential diagnosis: ?Includes but is not limited to suicidal ideation, homicidal ideation, rhabdomyolysis, anemia, electrolyte abnormalities, COVID-19, influenza, RSV, polysubstance use disorder Course: 21:23 My interpretation patient's laboratory evaluation is as follows: WBC was normal 7200. Normocytic anemia with an H&H of 12 and 36.7. Low bicarb 21. Elevated BUN 23. Elevated AST 44. CK was elevated 382 but not consistent with significant rhabdomyolysis to cause his symptoms. Alcohol was below detectable limits. Urine tox screen is pending collection. COVID-19, influenza and RSV tests were negative. The patient is medically cleared and he will be transferred to the emergency department Behavioral Health Unit and is cleared to be seen by care team. I did requested a ED discharge summary from [facility] to confirm that he was dosed with methadone yesterday and will base his methadone dose tonight on this information. 22:27 I did receive the patient's ED record from [facility] from 09/08/2024 and the patient did receive methadone 185 mg yesterday. The ED nurse he was going to reconciled the patient was medications and will order he was outpatient medication regimen including his methadone dose. If the patient was medically cleared by the care team he will need to see the recovery team in order to help bridge him with methadone until he can get into his methadone clinic on 09/13/2024 23:10 Start physician observation I did get a ED record from [facility] dated 09/08/2024 which did state that the patient was dosed yesterday with methadone 185 mg orally. Patient will be kept on this dose while he was here in the emergency department. Patient was medications were reconciled by the nursing staff and I did order his outpatient regimen. Patient will remain in the emergency department Behavioral Health Unit until disposition can be determined or until patient's symptoms improve over time. Admission/Observation Consideration of admission/observation: Escalation of care including admission/observation considered (Yes) Lab Data MDM Lab Attestation statement: I reviewed the patient's lab results. 09/09/24 19:50 09/10/24 18:46 Labs: Lab Results 09/09/24 09/09/24 Range/Units 19:50 23:48 WBC 7.2 (4.8-10.8) X10*3/uL RBC 4.42 L (4.60-5.80) X10*6/uL Hgb 12.3 L (14.0-18.0) g/dl Hct 36.7 L (42.0-52.0) % MCV 83.0 (80.0-98.0) fL MCH 27.8 (27.0-33.0) pg MCHC 33.5 (31.0-36.0) g/dl RDW 15.3 (11.0-16.0) % Plt Count 262 (160-400) X10*3/uL MPV 10.6 (9.4-12.4) fL Immature Gran % (Auto) 0.3 (0.0-0.4) % Neut % (Auto) 61.0 (45-73) % Lymph % (Auto) 28.7 (20-40) % Barron % (Auto) 8.4 (2-11) % Eos % (Auto) 0.8 (0-4) % Baso % (Auto) 0.8 (0-2) % Lymph # (Auto) 2.1 (1.2-4.9) X10*3/uL Barron # (Auto) 0.6 (0.1-1.2) X10*3/uL Eos # (Auto) 0.1 (0.0-0.4) X10*3/uL Baso # (Auto) 0.1 (0.0-0.2) X10*3/uL Abs Immat Gran (auto) 0.02 (0.00-0.03) X10*3/uL Absolute Neuts (auto) 4.4 (2.0-8.3) x10*3/uL Absolute Nucleated RBC 0.000 (0.0-0.012) X10*3/uL Nucleated RBC % (auto) 0.0 (0.0-0.2) /100WBC Sodium 141 (135-145) mmol/L Potassium 3.9 (3.3-5.1) mmol/L Chloride 107 (96-108) mmol/L Carbon Dioxide 21 L (22-29) mmol/L Anion Gap 17 (12-20) BUN 23 H (9-16) mg/dL Creatinine 0.80 (0.5-1.4) mg/dL Estim Creat Clear Calc 155.7 Estimated GFR > 60 Random Glucose 86 (60-115) mg/dL Calcium 9.5 (8.4-10.2) mg/dL Total Bilirubin 0.5 (0.0-1.0) mg/dL Direct Bilirubin 0.1 (0.0-0.5) mg/dL AST 44 H (5-37) U/L ALT 34 (0-40) U/L Alkaline Phosphatase 71 (39-117) U/L Total Creatine Kinase 382 H (38-174) U/L Total Protein 8.0 (6.5-8.0) g/dL Albumin 4.8 (3.5-5.0) g/dL Lipase 32 (8-78) U/L Urine Opiates Screen Not Detected (Not Detect) Ur Buprenorphine Scrn Not Detected (Not Detect) ng/mL Ur Oxycodone Screen Not Detected (Not Detect) ng/mL Urine Methadone Screen Positive H (Not Detect) ng/mL Urine Fentanyl Screen POSITIVE H (Not Detect) Ur Barbiturates Screen Not Detected (Not Detect) Ur Phencyclidine Scrn Not Detected (Not Detect) Ur Amphetamines Screen Not Detected (Not Detect) U Benzodiazepines Scrn POSITIVE H (Not Detect) Urine Cocaine Screen POSITIVE H (Not Detect) U Marijuana (THC) Screen POSITIVE H (Not Detect) Ethyl Alcohol < 10 mg/dL Influenza Type A (PCR) NEGATIVE (Negative) Influenza Type B (PCR) NEGATIVE (Negative) RSV RNA Qual (PCR) NEGATIVE (Negative) SARS-CoV-2 RNA (RT-PCR) NEGATIVE (Negative) External Record Review External record reviewed: Inpatient record (Psychiatric inpatient admission from 01/01 2024 until 01/10/2024) Chronic Conditions Patient?s care impacted by: Other (Polysubstance use disorder) Discharge Plan Discharge Clinical Impression: MDD (major depressive disorder), recurrent, severe, with psychosis Patient Disposition: Admitted As Inpatient Interventions: Admission Worksheet (ED) Last Done: 09/10/24 15:16 Discharge Date/Time: 09/10/24 16:42
--- NOTE | 2024-09-09 19:32 | PC.NURSE ---
pt a&ox4, respirations even and unlabored. pt reports he was recently d/c from a psych facility. pt reports he has been walking around a lot and believes he is in rhabo. pt reports hx of cocaine use, reports he last used yesterday. pt also reports he has been si for a while and states he is going to put a gun to his head. pt denies hi. pt changed over by security, belongings placed in [facility]. 1:1 sitter.
[2024-09-09 19:54] LABS: MANUAL DIFF FLAG NO
[2024-09-09 19:55] LABS: Basophils Absolute Auto 0.1 X10*3/uL (0.0-0.2); Basophils Percent Auto 0.8 % (0-2); Eosinophils Absolute Auto 0.1 X10*3/uL (0.0-0.4); Eosinophils Percent Auto 0.8 % (0-4); Hematocrit 36.7 % (42.0-52.0); Hemoglobin 12.3 g/dl (14.0-18.0); Imm Gran Abs Auto 0.02 X10*3/uL (0.00-0.03); Imm Gran Pct Auto 0.3 % (0.0-0.4); Lymphocytes Absolute Auto 2.1 X10*3/uL (1.2-4.9); Lymphocytes Percent Auto 28.7 % (20-40); Mean Corpuscular HGB Conc 33.5 g/dl (31.0-36.0); Mean Corpuscular Hemoglobin 27.8 pg (27.0-33.0); Mean Platelet Volume 10.6 fL (9.4-12.4); Monocytes Absolute Auto 0.6 X10*3/uL (0.1-1.2); Monocytes Percent Auto 8.4 % (2-11); Neutrophils Absolute Auto 4.4 x10*3/uL (2.0-8.3); Platelet Count 262 X10*3/uL (160-400); Red Blood Count 4.42 X10*6/uL (4.60-5.80); Red Cell Distribution Width 15.3 % (11.0-16.0); White Blood Count 7.2 X10*3/uL (4.8-10.8)
--- NOTE | 2024-09-09 20:04 | MHC.EDTECH ---
u/a pt changed over by security and belongings secured in [facility]
[2024-09-09 20:15] LABS: Alanine Aminotransferase 34 U/L (0-40); Albumin Level 4.8 g/dL (3.5-5.0); Alkaline Phosphatase 71 U/L (39-117); Anion Gap 17 (12-20); Aspartate Amino Transferase 44 U/L (5-37); Bilirubin Direct 0.1 mg/dL (0.0-0.5); Bilirubin Total 0.5 mg/dL (0.0-1.0); Blood Urea Nitrogen 23 mg/dL (9-16); Calcium 9.5 mg/dL (8.4-10.2); Carbon Dioxide 21 mmol/L (22-29); Chloride 107 mmol/L (96-108); Creatinine Clr Calc Pharmacy 155.7; Estimated Glomerular Filt Rate > 60; Ethanol < 10 mg/dL; Glucose Random 86 mg/dL (60-115); Lipase 32 U/L (8-78); Potassium 3.9 mmol/L (3.3-5.1); Sodium 141 mmol/L (135-145)
[2024-09-09 20:30] LABS: Influenza A PCR NEGATIVE (Negative); Influenza B PCR NEGATIVE (Negative); Resp Syncy Virus RNA Qual PCR NEGATIVE (Negative); SARS COV2 PCR INHOUSE NEGATIVE (Negative)
--- NOTE | 2024-09-09 22:56 | HE.PHANOTE ---
RE: METHADONE DOSING Last dose of methadone 185 mg was given on 09/08/24 @0847 per [facility] discharge note. aware . Per nurse, is Dr. Jo. Methadone clinic is [facility] on [address] in [place] [phone].
[2024-09-09 23:38] VITALS: BP 114/68
[2024-09-09] MEDS: chlorproMAZINE HCl 100 MG TABLET 200 MG PO (23:38)
[2024-09-09] MEDS: Baclofen 20 MG TABLET PO (23:38)
[2024-09-09] MEDS: Prazosin HCL 1 MG, Prazosin HCL 5 MG 6 MG PO (23:38)
[2024-09-09 23:44] VITALS: BP 114/68; PULSE 84; RESP 16; TEMP 36.7; O2SAT 97
--- NOTE | 2024-09-10 | ECG_ITS ---
Test Reason : check qtc Blood Pressure : */* mmHG Vent. Rate : 86 BPM Atrial Rate : 86 BPM P-R Int : 148 ms QRS Dur : 76 ms QT Int : 372 ms P-R-T Axes : 42 52 26 degrees QTcB Int : 445 ms Normal sinus rhythm with sinus arrhythmia Normal ECG When compared with ECG of 02-Jan-2024 12:30, No significant change was found Referred By: Kevin Jo Electronically Signed By: NIRANJAN GORDON
[2024-09-10 00:11] LABS: Amphetamine Screen Urine Not Detected (Not Detect); Barbiturates, Urine Not Detected (Not Detect); Benzodiazepines Screen Urine POSITIVE (Not Detect); Buprenorphine Scr Not Detected (Not Detect); Cannabinoid Screen Urine POSITIVE (Not Detect); Cocaine Screen Urine POSITIVE (Not Detect); Fentanyl, urine POSITIVE (Not Detect); Methadone Screen, Urine Positive (Not Detect); Opiate Screen Urine Not Detected (Not Detect); Oxycodone Screen Urine Not Detected (Not Detect); Phencyclidine Screen Urine Not Detected (Not Detect)
--- NOTE | 2024-09-10 06:35 | PC.NURSE ---
Patient slept through the night, no distress observed/reported, 15 minutes safety check, no behavior and safety concerns, care consult ordered/pending evaluation, will continue to monitor
--- NOTE | 2024-09-10 09:12 | MHC.CARE ---
Pt will be a Dual Dx bedsearch
[2024-09-10] MEDS: cloNIDine HCL 0.1 MG TABLET PO ×2 (09:35→15:47)
[2024-09-10] MEDS: Pramipexole Di-HCL 0.125 MG TABLET PO (09:35)
[2024-09-10] MEDS: Sennosides 8.6 MG TABLET 17.2 MG PO (09:36)
[2024-09-10] MEDS: Baclofen 20 MG TABLET PO ×2 (09:36→20:55)
[2024-09-10] MEDS: Atorvastatin Calcium 10 MG TABLET PO (09:36)
[2024-09-10] MEDS: Docusate Sodium 100 MG CAPSULE PO ×2 (09:36→20:55)
[2024-09-10] MEDS: PARoxetine HCL 30 MG TABLET 60 MG PO (09:37)
[2024-09-10] MEDS: Gabapentin 400 MG CAPSULE 800 MG PO ×2 (09:37→15:47)
[2024-09-10] MEDS: methADONE HCl 20 MG/2 ML ORAL.CONC 185 MG PO (09:43)
--- NOTE | 2024-09-10 10:41 | PC.NURSE ---
Assumed care of patient at 0645, patient appears to be in no apparent distress today, calm and cooperative, alert and oriented x4. Aware of plan of care for dual dx bedsearch
--- NOTE | 2024-09-10 11:02 | MHC.CARE ---
Pt was accepted to [facility] for today 09/10/24 by Thang. The accepting doc is Dr. Hitchcock and the ETA is 3pm. No nurse to nurse is required by the accepting facility. [place] [address]. Pod RN and CARE team have been notified of placement.
--- NOTE | 2024-09-10 17:48 | PC.NURSE ---
Jovany was admitted from the ED POD where he self presented after a recent discharge from [facility] in the context of feeling hopeless and expressing suicidal ideation. Jovany reports he has been using cocaine since his release but that he is not using opiates. He is currently on 185mg methadone which he gets at [facility]. Jovany told the ED and this video games storywriter upon admission he was not drinking alcohol but later reported he was drinking some between admissions. Skin check was WNL. Jovany has a good appetite and has been snacking since arriving. Observed sleeping in the kitchen and was asked to go to his room if he couldn't stay awake. Jovany is denying current SI/HI and denies AVH. He does endorse anxiety and depression. Jovany states he is currently homeless which is a large stress on him. Some irritability at baseline. CV is signed and in his chart.
[2024-09-10 19:23] LABS: Alanine Aminotransferase 29 U/L (0-40); Albumin Level 4.1 g/dL (3.5-5.0); Alkaline Phosphatase 75 U/L (39-117); Anion Gap 14 (12-20); Aspartate Amino Transferase 29 U/L (5-37); Bilirubin Total 0.2 mg/dL (0.0-1.0); Blood Urea Nitrogen 23 mg/dL (9-16); Calcium 9.2 mg/dL (8.4-10.2); Carbon Dioxide 25 mmol/L (22-29); Chloride 106 mmol/L (96-108); Creatinine Clr Calc Pharmacy 136.9; Estimated Glomerular Filt Rate > 60; Glucose Random 111 mg/dL (60-115); Potassium 4.2 mmol/L (3.3-5.1); Sodium 141 mmol/L (135-145)
[2024-09-10 20:00] VITALS: BP 122/57; PULSE 81; TEMP 36.4; O2SAT 95
[2024-09-10] MEDS: chlorproMAZINE HCl 100 MG TABLET 200 MG PO (20:55)
[2024-09-10] MEDS: Prazosin HCL 1 MG, Prazosin HCL 5 MG 6 MG PO (21:04)
[2024-09-10] MEDS: Nicotine Polacrilex 2 MG GUM 4 MG BUCCAL (21:16)
[2024-09-11] MEDS: methADONE HCl 20 MG/2 ML ORAL.CONC 185 MG PO (07:44)
[2024-09-11 07:56] VITALS: BP 86/53; PULSE 58; TEMP 37.1; O2SAT 96
[2024-09-11] MEDS: Baclofen 20 MG TABLET PO ×2 (08:18→20:33)
[2024-09-11] MEDS: Docusate Sodium 100 MG CAPSULE PO ×2 (08:18→20:32)
[2024-09-11] MEDS: PARoxetine HCL 30 MG TABLET 60 MG PO (08:18)
[2024-09-11] MEDS: Sennosides 8.6 MG TABLET 17.2 MG PO (08:18)
[2024-09-11] MEDS: Pramipexole Di-HCL 0.125 MG TABLET PO (08:18)
[2024-09-11] MEDS: Atorvastatin Calcium 10 MG TABLET PO (08:18)
[2024-09-11] MEDS: Nicotine Polacrilex 2 MG GUM 4 MG BUCCAL ×5 (10:31→23:04)
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
[2024-09-11 11:43] VITALS: BP 126/66; PULSE 91; O2SAT 98
[2024-09-11 12:59] VITALS: BP 122/66
[2024-09-11] MEDS: cloNIDine HCL 0.1 MG TABLET PO (12:59)
[2024-09-11] MEDS: Gabapentin 400 MG CAPSULE 800 MG PO ×2 (16:27→20:33)
[2024-09-11 20:00] VITALS: BP 134/72; PULSE 76; TEMP 36.7; O2SAT 100
[2024-09-11] MEDS: chlorproMAZINE HCl 100 MG TABLET 200 MG PO (20:32)
[2024-09-11] MEDS: Perphenazine 4 MG TABLET PO (20:33)
[2024-09-11 20:35] VITALS: BP 134/72
[2024-09-11] MEDS: Prazosin HCL 1 MG, Prazosin HCL 5 MG 6 MG PO (20:35)
[2024-09-11] MEDS: OLANZapine 5 MG TABLET PO (23:04)
[2024-09-11] MEDS: hydrOXYzine HCL 50 MG TABLET PO (23:05)
[2024-09-12] MEDS: methADONE HCl 20 MG/2 ML ORAL.CONC 185 MG PO (07:57)
[2024-09-12 08:19] VITALS: BP 121/67; PULSE 56; TEMP 36.4; O2SAT 96
[2024-09-12 09:25] VITALS: BP 130/66
[2024-09-12] MEDS: cloNIDine HCL 0.1 MG TABLET PO ×3 (09:25→17:30)
[2024-09-12] MEDS: Gabapentin 400 MG CAPSULE 800 MG PO ×3 (09:26→20:43)
[2024-09-12] MEDS: Baclofen 20 MG TABLET PO ×2 (09:26→20:42)
[2024-09-12] MEDS: PARoxetine HCL 30 MG TABLET 60 MG PO (09:26)
[2024-09-12] MEDS: Perphenazine 4 MG TABLET PO ×2 (09:26→20:42)
[2024-09-12] MEDS: Atorvastatin Calcium 10 MG TABLET PO (09:26)
[2024-09-12] MEDS: Pramipexole Di-HCL 0.125 MG TABLET PO (09:26)
[2024-09-12] MEDS: Nicotine Polacrilex 2 MG GUM 4 MG BUCCAL ×5 (09:30→23:50)
--- NOTE | 2024-09-12 12:28 | P.PNPSI_ITS ---
Subjective Subjective Date of Service: 09/12/24 Reason For Visit: depression Subjective Notes: 3 Day Interim History: Active on unit. Patient reports he regrets coming inpatient and should of just adjusted my meds with my outpatient doctor . pt stated, I'm depressed but it's tolerable ; denies SI/HI/VH/AH. denies any issues at this time. Requesting to be discharged either today or tomorrow; pt was informed to discuss this with his primary team. Medication Compliance: Yes Side effects from medications: No Mental Status Exam Mental Status Exam Patient Appearance: Appropriate Patient Orientation: Person, Place, Time and Situation Level of Consciousness: Awake and Alert Patient Behavior: Appropriate, Cooperative and Good Eye Contact Mood Description: Depressed Affect Description: Constricted Ability to Follow Directions: Good Speech Pattern: Clear and Appropriate Memory Description: Intact Hallucinations: None Delusions: Not Present Thought Process: Intact Thought Content: positive for Intact Diagnostics Vital Signs (24Hr): Vital Signs - 24 hr 09/11/24 12:59 09/11/24 20:00 09/11/24 20:35 Temperature 98.1 F Pulse Rate 76 Blood Pressure 122/66 134/72 134/72 Pulse Oximetry 100 Oxygen Delivery Method Room Air 09/12/24 08:19 09/12/24 09:25 Temperature 97.5 F Pulse Rate 56 Blood Pressure 121/67 130/66 Pulse Oximetry 96 Oxygen Delivery Method Room Air BMI result Body Mass Index 31.7 Labs 09/09/24 19:50 09/10/24 18:46 Labs: Laboratory Results - last 48 hr 09/10/24 18:46 Sodium 141 Potassium 4.2 Chloride 106 Carbon Dioxide 25 Anion Gap 14 BUN 23 H Creatinine 0.91 Estim Creat Clear Calc 136.9 Estimated GFR > 60 Random Glucose 111 Calcium 9.2 Total Bilirubin 0.2 AST 29 ALT 29 Alkaline Phosphatase 75 Total Protein 7.0 Albumin 4.1 Medications Medications Current Medications Acetaminophen (Acetaminophen 325 Mg Tablet) 650 mg PO Q6H PRN PRN Reason: Headache/Pain, Scale 1-10 Al Hydroxide/Mg Hydroxide (Magnesium Hydrox/Alum Hydrox 30 Ml Oral.Susp) 30 ml PO Q6H PRN PRN Reason: Heartburn/Nausea Atorvastatin Calcium (Atorvastatin Calcium 10 Mg Tablet) 10 mg PO DAILY [facility] Last Admin: 09/12/24 09:26 Dose: 10 mg Baclofen (Baclofen 20 Mg Tablet) 20 mg PO BID [facility] Last Admin: 09/12/24 09:26 Dose: 20 mg Chlorpromazine HCl (Chlorpromazine Hcl 100 Mg Tablet) 200 mg PO BEDTIME [facility] Last Admin: 09/11/24 20:32 Dose: 200 mg Clonidine HCl (Clonidine Hcl 0.1 Mg Tablet) 0.1 mg PO TID@0900,1300,1700 [facility]; Protocol Last Admin: 09/12/24 09:25 Dose: 0.1 mg Docusate Sodium (Docusate Sodium 100 Mg Capsule) 100 mg PO BID [facility] Last Admin: 09/12/24 09:31 Dose: Not Given Gabapentin (Gabapentin 400 Mg Capsule) 800 mg PO TID [facility] Last Admin: 09/12/24 09:26 Dose: 800 mg Hydroxyzine HCl (Hydroxyzine Hcl 50 Mg Tablet) 50 mg PO QID PRN PRN Reason: Anxiety Last Admin: 09/11/24 23:05 Dose: 50 mg Magnesium Hydroxide (Milk Of Magnesia 30 Ml Oral.Susp) 30 ml PO DAILY PRN PRN Reason: Constipation Methadone HCl (Methadone Hcl 20 Mg/2 Ml Oral.Conc) 185 mg PO DAILY [facility] Last Admin: 09/12/24 07:57 Dose: 185 mg Naproxen (Naproxen 500 Mg Tablet) 500 mg PO BID PRN PRN Reason: Pain, Moderate(Pain Scale 4-6) Nicotine (Nicotine 21 Mg Patch.Td24) 21 mg TRANSDERMA DAILY PRN PRN Reason: Nicotine Cravings Nicotine Polacrilex (Nicotine Polacrilex 2 Mg Gum) 4 mg BUCCAL Q2H PRN PRN Reason: Nicotine Cravings Last Admin: 09/12/24 11:57 Dose: 4 mg Olanzapine (Olanzapine 5 Mg Tablet) 5 mg PO TID PRN PRN Reason: agitation Last Admin: 09/11/24 23:04 Dose: 5 mg Paroxetine HCl (Paroxetine Hcl 30 Mg Tablet) 60 mg PO DAILY [facility] Last Admin: 09/12/24 09:26 Dose: 60 mg Perphenazine (Perphenazine 4 Mg Tablet) 4 mg PO BID [facility] Last Admin: 09/12/24 09:26 Dose: 4 mg Pramipexole Dihydrochloride (Pramipexole Di-Hcl 0.125 Mg Tablet) 0.125 mg PO DAILY [facility] Last Admin: 09/12/24 09:26 Dose: 0.125 mg Prazosin HCl 1 mg/ Prazosin (HCl 5 mg) 6 mg PO BEDTIME [facility] Last Admin: 09/11/24 20:35 Dose: 6 mg Senna (Sennosides 8.6 Mg Tablet) 17.2 mg PO DAILY [facility] Last Admin: 09/12/24 09:31 Dose: Not Given Trazodone HCl (Trazodone Hcl 50 Mg Tablet) 50 mg PO BEDTIME MRX1 PRN PRN Reason: Insomnia Allergies Allergies Allergy/AdvReac Type Severity Reaction Status Date / Time amoxicillin Allergy Hives Verified 09/09/24 19:11 Penicillins [PCN] Allergy Hives Verified 09/09/24 19:11 seafood Allergy Difficulty Verified 09/09/24 19:11 Breathing Assessment & Plan Assessment & Plan (1) Antisocial personality disorder: Status: Acute Code(s): F60.2 - Antisocial personality disorder (2) MDD (major depressive disorder), recurrent, severe, with psychosis: Status: Acute Code(s): F33.3 - Major depressive disorder, recurrent, severe with psychotic symptoms (3) PTSD (post-traumatic stress disorder): Status: Acute Code(s): F43.10 - Post-traumatic stress disorder, unspecified (4) Polysubstance use disorder: Status: Acute Code(s): F19.90 - Other psychoactive substance use, unspecified, uncomplicated Plan Admit, CV, 15 minute checks Collateral contacts Diagnostics as needed. Trial of Perphenazine 4 mg bid. Avoid addictive medications Encourage milieu involvement After a discussion with the team, discussion with pt today regarding his past admissions and difficulties on the unit with his behaviors and current expectations that he will respect peers and the milieu. 09/12: focused on discharge. on 3 day. continue current tx plan. Patient educated on: diagnosis and medication risk/benefits Reason for continued inpatient stay Substantial Risk for: med/psych decompensation Time Spent With Patient Time: Total time managing care of this patient today _20___ minutes.
[2024-09-12 13:31] VITALS: BP 115/68
[2024-09-12 17:30] VITALS: BP 118/77
[2024-09-12 19:45] VITALS: BP 118/71; PULSE 101; RESP 16; TEMP 36.2; O2SAT 99
[2024-09-12 20:41] VITALS: BP 118/71
[2024-09-12] MEDS: Prazosin HCL 1 MG, Prazosin HCL 5 MG 6 MG PO (20:41)
[2024-09-12] MEDS: chlorproMAZINE HCl 100 MG TABLET 200 MG PO (20:42)
[2024-09-12] MEDS: OLANZapine 5 MG TABLET PO (20:42)
[2024-09-12] MEDS: hydrOXYzine HCL 50 MG TABLET PO (20:42)
[2024-09-12] MEDS: Docusate Sodium 100 MG CAPSULE PO (20:42)
[2024-09-13] MEDS: methADONE HCl 20 MG/2 ML ORAL.CONC 185 MG PO (07:53)
[2024-09-13] MEDS: Atorvastatin Calcium 10 MG TABLET PO (08:27)
[2024-09-13] MEDS: Perphenazine 4 MG TABLET PO (08:27)
[2024-09-13] MEDS: Sennosides 8.6 MG TABLET 17.2 MG PO (08:27)
[2024-09-13] MEDS: Pramipexole Di-HCL 0.125 MG TABLET PO (08:27)
[2024-09-13] MEDS: Baclofen 20 MG TABLET PO (08:27)
[2024-09-13] MEDS: PARoxetine HCL 30 MG TABLET 60 MG PO (08:27)
[2024-09-13] MEDS: cloNIDine HCL 0.1 MG TABLET PO (08:27)
[2024-09-13] MEDS: Gabapentin 400 MG CAPSULE 800 MG PO (08:27)
[2024-09-13] MEDS: Docusate Sodium 100 MG CAPSULE PO (08:27)
[2024-09-13 08:30] VITALS: BP 111/58; PULSE 70; RESP 18; TEMP 36.8; O2SAT 97
[2024-09-13] MEDS: Nicotine 21 MG PATCH.TD24 TRANSDERMA (09:01)
[2024-09-13] MEDS: Nicotine Polacrilex 2 MG GUM 4 MG BUCCAL (09:26)
--- NOTE | 2024-09-13 11:52 | P.DS_ITS ---
DS: Providers Provider Date of admission: 09/10/24 15:06 Primary care physician: Unknown Physician DS: Diagnosis Discharge Diagnosis (1) Antisocial personality disorder: Status: Acute (2) MDD (major depressive disorder), recurrent, severe, with psychosis: Status: Acute (3) PTSD (post-traumatic stress disorder): Status: Acute (4) Polysubstance use disorder: Status: Acute DS: Medications Discharge Medications Home Medications: Home Medications ?Medication ?Instructions ?Recorded ?Confirmed methadone 10 mg/mL oral 185 mg PO DAILY 08/14/24 09/09/24 concentrate (Methadose) prazosin 2 mg capsule 6 mg PO BEDTIME 09/09/24 09/09/24 Previous Rx's ?Medication ?Instructions ?Recorded atorvastatin 10 mg tablet 10 mg PO DAILY 30 days #30 tabs 01/10/24 baclofen 20 mg tablet 20 mg PO BID 30 days #60 tabs 01/10/24 chlorpromazine 200 mg tablet 200 mg PO BEDTIME 30 days #30 tabs 01/10/24 chlorpromazine 25 mg tablet 25 mg PO TID PRN mild agitation 30 01/10/24 days #90 tabs clonidine HCl 0.1 mg tablet 0.1 mg PO TID@0900,1300,1700 01/10/24 Anxiety 30 days #90 tabs docusate sodium 100 mg capsule 100 mg PO BID 30 days #60 caps 01/10/24 gabapentin 800 mg tablet 800 mg PO TID 30 days #90 tabs 01/10/24 hydroxyzine HCl 50 mg tablet 50 mg PO QID PRN Anxiety 30 days 01/10/24 #90 tabs naproxen 500 mg tablet 500 mg PO BID PRN pain #60 tabs 01/10/24 nicotine (polacrilex) 2 mg buccal 2 mg PO Q2H PRN Nicotine Cravings 01/10/24 lozenge 30 days #108 ea nicotine 21 mg/24 hr daily 1 patch topical DAILY PRN nicotine 01/10/24 transdermal patch cravings 28 days #28 ea paroxetine HCl 30 mg tablet 60 mg (2 x 30 mg) PO DAILY 30 days 01/10/24 #60 tabs pramipexole 0.125 mg tablet 0.125 mg PO DAILY 30 days #30 tabs 01/10/24 sennosides 8.6 mg tablet (senna) 17.2 mg (2 x 8.6 mg) PO DAILY 30 01/10/24 days #60 tabs Data Data Completed and Pending Completed studies during hospitalization [Text1]: 09/09/24 09/09/24 09/10/24 19:50 23:48 18:46 WBC 7.2 RBC 4.42 L Hgb 12.3 L Hct 36.7 L MCV 83.0 MCH 27.8 MCHC 33.5 RDW 15.3 Plt Count 262 MPV 10.6 Immature Gran % (Auto) 0.3 Neut % (Auto) 61.0 Lymph % (Auto) 28.7 [place] % (Auto) 8.4 Eos % (Auto) 0.8 Baso % (Auto) 0.8 Lymph # (Auto) 2.1 [place] # (Auto) 0.6 Eos # (Auto) 0.1 Baso # (Auto) 0.1 Abs Immat Gran (auto) 0.02 Absolute Neuts (auto) 4.4 Absolute Nucleated RBC 0.000 Nucleated RBC % (auto) 0.0 Sodium 141 141 Potassium 3.9 4.2 Chloride 107 106 Carbon Dioxide 21 L 25 Anion Gap 17 14 BUN 23 H 23 H Creatinine 0.80 0.91 Estim Creat Clear Calc 155.7 136.9 Estimated GFR > 60 > 60 Random Glucose 86 111 Calcium 9.5 9.2 Total Bilirubin 0.5 0.2 Direct Bilirubin 0.1 AST 44 H 29 ALT 34 29 Alkaline Phosphatase 71 75 Total Creatine Kinase 382 H Total Protein 8.0 7.0 Albumin 4.8 4.1 Lipase 32 Urine Opiates Screen Not Detected Ur Buprenorphine Scrn Not Detected Ur Oxycodone Screen Not Detected Urine Methadone Screen Positive H Urine Fentanyl Screen POSITIVE H Ur Barbiturates Screen Not Detected Ur Phencyclidine Scrn Not Detected Ur Amphetamines Screen Not Detected U Benzodiazepines Scrn POSITIVE H Urine Cocaine Screen POSITIVE H U Marijuana (THC) Screen POSITIVE H Ethyl Alcohol < 10 Influenza Type A (PCR) NEGATIVE Influenza Type B (PCR) NEGATIVE RSV RNA Qual (PCR) NEGATIVE SARS-CoV-2 RNA (RT-PCR) NEGATIVE DS: Summary Time Spent with Patient Time attestation: Total time managing care of this patient today ____ minutes. Discharge Plan Discharge Anticipated Discharge Date/Time: 09/13/24 12:00 Patient Disposition: Home, Self-Care Discharge Diagnosis: PTSD Recurrent Major Depression Antisocial Personality Disorder Polysubstance Use Disorder Referrals: [facility] [Other] - 09/14/24 10:00 am (Hospital discharge appointment with [facility]. Patient appointment in person at [facility] ) Physician,Feng J [Primary Care Provider] - 1 Week Discharge Medications: Continued chlorpromazine 25 mg Tablet 25 mg PO TID PRN (Reason: mild agitation) 30 Days Qty: 90 1RF sennosides [senna] 8.6 mg tablet 17.2 mg PO DAILY 30 Days Qty: 60 1RF clonidine HCl 0.1 mg tablet 0.1 mg PO TID@0900,1300,1700 30 Days Qty: 90 1RF atorvastatin 10 mg tablet 10 mg PO DAILY 30 Days Qty: 30 1RF hydroxyzine HCl 50 mg tablet 50 mg PO QID PRN (Reason: Anxiety) 30 Days Qty: 90 1RF baclofen 20 mg tablet 20 mg PO BID 30 Days Qty: 60 1RF gabapentin 800 mg tablet 800 mg PO TID 30 Days Qty: 90 1RF paroxetine HCl 30 mg tablet 60 mg PO DAILY 30 Days Qty: 60 1RF nicotine 21 mg/24 hr patch 24 hour 1 patch topical DAILY PRN (Reason: nicotine cravings) 28 Days Qty: 28 0RF pramipexole 0.125 mg tablet 0.125 mg PO DAILY 30 Days Qty: 30 1RF docusate sodium 100 mg capsule 100 mg PO BID 30 Days Qty: 60 1RF Rx Instructions: hold for loose stool chlorpromazine 200 mg tablet 200 mg PO BEDTIME 30 Days Qty: 30 1RF naproxen 500 mg tablet 500 mg PO BID PRN (Reason: pain) Qty: 60 0RF nicotine (polacrilex) 2 mg lozenge 2 mg PO Q2H PRN (Reason: Nicotine Cravings) 30 Days Qty: 108 0RF Rx Instructions: DNE 20/DAY methadone [Methadose] 10 mg/mL concentrate 185 mg PO DAILY Rx Instructions: Partial Fill upon patient request. prazosin 2 mg capsule 6 mg PO BEDTIME Discharge Orders: Discharge Order (Routine); Ordered 09/13/24 Ordered By: Carly Zamorano Diet: Advance to usual diet Activity on Discharge: As tolerated Stand Alone Forms: Patient Portal Discharge page, Community Support Print Language: Dutch Care Plan Goals: Mood and Behavioral Stabilization Abstinence from Substances Health Concerns: Mood and Behavioral Stabilization Abstinence from Substances Plan of Treatment: Follow up with your out patient treatment providers You report you are not in need of prescriptions. Continue your out patient medication regime as prescribed Assessment: Pt leaves on a three day notice of intent He declines prescriptions, reports he has medications at home. Denies SI,HI,AH,VH. There are no sx of acute karla or psychosis Discharge Date/Time: 09/13/24 10:00
== END 2024-09-13 10:00 | disposition home or self-care (01) | DRG 752 ==
LOC: HO.ED 09-10 12:57 → HO.PM5 09-10 15:21
PROVIDERS: Nurse Practitioner Family; Admitting Provider Psychiatry & Neurology Psychiatry; Emergency Provider Emergency Medicine Emergency Medical Services; Visit Provider Clinical Nurse Specialist Psychiatric/Mental Health, Adult
DX: F60.2 Antisocial personality disorder (principal); F33.3 Major depressive disorder, recurrent, severe with psychotic symptoms; F11.20 Opioid dependence, uncomplicated; F19.90 Other psychoactive substance use, unspecified, uncomplicated; F43.10 Post-traumatic stress disorder, unspecified; F17.210 Nicotine dependence, cigarettes, uncomplicated; Z71.6 Tobacco abuse counseling; Z20.822 Contact with and (suspected) exposure to COVID-19; Z91.148 Patient's other noncompliance with medication regimen for other reason; Z79.899 Other long term (current) drug therapy
CPT/HCPCS: 0241U; 36415; 80048; 80053; 80076; 80307; 82550; 83690; 85025; 93005; 99285; S9485

== ENCOUNTER → 2024-09-10 09:58 | Outpatient (BNV) | payer OTHER, SELFPAY | PROVIDERS: Emergency Provider Emergency Medicine Emergency Medical Services; Visit Provider Internal Medicine | DX: I49.8 Other specified cardiac arrhythmias (principal); R45.851 Suicidal ideations | CPT/HCPCS: 93010 ==

== ENCOUNTER → 2024-09-10 15:06 | Outpatient (BNV) | payer OTHER, SELFPAY | PROVIDERS: Admitting Provider Psychiatry & Neurology Psychiatry; Emergency Provider Emergency Medicine Emergency Medical Services; Visit Provider Registered Nurse | DX: F60.2 Antisocial personality disorder (principal); F33.3 Major depressive disorder, recurrent, severe with psychotic symptoms; F43.11 Post-traumatic stress disorder, acute; F19.90 Other psychoactive substance use, unspecified, uncomplicated | CPT/HCPCS: 90792; 99231 ==

== ENCOUNTER 2024-09-16 00:58 | Emergency (ER) | payer OTHER, SELFPAY ==
[2024-09-16 00:59] VITALS: BP 132/81; PULSE 101; RESP 18; TEMP 36.8; O2SAT 97; BMI 33.0
--- NOTE | 2024-09-16 02:33 | ED.GENADULT ---
HPI - General Adult General Chief complaint: General Medical Stated complaint: needs medication Time Seen by Provider: 09/16/24 02:34 Source: patient Limitations: no limitations History of Present Illness ED Provider: Bernadine Kuo PA-C HPI narrative: 33-year-old male with a history of opiate use disorder on methadone 185 mg qd, depression, antisocial personality, cocaine use disorder, benzodiazepine abuse, major depression with recurrent, severe psychosis, alcohol use disorder, mood disorder, PTSD, polysubstance use disorder, PTSD, dissociative identity disorder presents requesting his methadone dose. Patient was just discharged from our facility on September 13 after inpatient psychiatric admission. At that time he had a scheduled appointment for 10:00 a.m. on September 14 at [facility]. The patient missed the appointment. Patient states he attends [facility], given he has missed doses, he can not reestablish treatment there until Tuesday. Related Data Home Medications ?Medication ?Instructions ?Recorded ?Confirmed methadone 10 mg/mL oral 185 mg PO DAILY 08/14/24 09/09/24 concentrate (Methadose) prazosin 2 mg capsule 6 mg PO BEDTIME 09/09/24 09/09/24 Previous Rx's ?Medication ?Instructions ?Recorded atorvastatin 10 mg tablet 10 mg PO DAILY 30 days #30 tabs 01/10/24 baclofen 20 mg tablet 20 mg PO BID 30 days #60 tabs 01/10/24 chlorpromazine 200 mg tablet 200 mg PO BEDTIME 30 days #30 tabs 01/10/24 chlorpromazine 25 mg tablet 25 mg PO TID PRN mild agitation 30 01/10/24 days #90 tabs clonidine HCl 0.1 mg tablet 0.1 mg PO TID@0900,1300,1700 01/10/24 Anxiety 30 days #90 tabs docusate sodium 100 mg capsule 100 mg PO BID 30 days #60 caps 01/10/24 gabapentin 800 mg tablet 800 mg PO TID 30 days #90 tabs 01/10/24 hydroxyzine HCl 50 mg tablet 50 mg PO QID PRN Anxiety 30 days 01/10/24 #90 tabs naproxen 500 mg tablet 500 mg PO BID PRN pain #60 tabs 01/10/24 nicotine (polacrilex) 2 mg buccal 2 mg PO Q2H PRN Nicotine Cravings 01/10/24 lozenge 30 days #108 ea nicotine 21 mg/24 hr daily 1 patch topical DAILY PRN nicotine 01/10/24 transdermal patch cravings 28 days #28 ea paroxetine HCl 30 mg tablet 60 mg (2 x 30 mg) PO DAILY 30 days 01/10/24 #60 tabs pramipexole 0.125 mg tablet 0.125 mg PO DAILY 30 days #30 tabs 01/10/24 sennosides 8.6 mg tablet (senna) 17.2 mg (2 x 8.6 mg) PO DAILY 30 01/10/24 days #60 tabs Allergies Allergy/AdvReac Type Severity Reaction Status Date / Time amoxicillin Allergy Hives Verified 09/16/24 01:02 Penicillins [PCN] Allergy Hives Verified 09/16/24 01:02 seafood Allergy Difficulty Verified 09/16/24 01:02 Breathing Review of Systems Review of Systems: Yes all other systems are reviewed and are negative Constitutional: Constitutional: Denies fatigue and Denies fever(s) Cardiovascular: Cardiovascular: Denies chest pain and Denies dyspnea Respiratory: Respiratory: Denies cough and Denies dyspnea Gastrointestinal: Gastrointestinal: Denies abdominal pain, Denies diarrhea, Denies nausea and Denies vomiting Endocrine: Endocrine: Denies fatigue PMFSH Past Medical History Attestation statement: The following information was validated with the patient. Medical History (Updated 09/16/24 @ 04:09 by MONICA Hastings) Polysubstance use disorder Opioid use disorder Depression Antisocial personality disorder Cocaine use disorder, moderate, dependence Benzodiazepine abuse MDD (major depressive disorder), recurrent, severe, with psychosis Alcohol use disorder Mood disorder PTSD (post-traumatic stress disorder) Polysubstance (including opioids) dependence, daily use Social History Social History Household Members: None Household Members Other:: homeless Housing: Homeless Do you presently have visiting nurse or other home services: No Unable to assess alcohol history related to: Unknown Alcohol intake: current Alcohol intake frequency: a few times a week Alcohol type: beer and hard liquor Comment: Pt ambulates independently Patient Tobacco Use Status: Current everyday Tobacco user Tobacco use type: Cigarette Cigarette Packs Per Day: 1 Cigarettes Per Day: 5 Years Smoked: 20 e-Cigarette/Vaping Use: Never Used Second Hand Smoke Exposure: No Substance Use Type: Crack/Cocaine and Marijuana Advance Directives: No Do you have a plan to hurt others: No Plan service: No Current occupational status: unemployed Sexual orientation: Straight/Heterosexual Physical Exam ED Vital Signs: Vital Signs - 24 hr 09/16/24 00:59 Temperature 98.3 F Pulse Rate 101 H Respiratory Rate 18 Blood Pressure 132/81 Pulse Oximetry 97 Oxygen Delivery Method Room Air BMI result Body Mass Index 33.0 Const Other: Alert, appears older than stated age Orientation/consciousness: patient oriented x3 Resp Effort & Inspection: normal respiratory effort Cardio Other: Normal peripheral perfusion Skin Other: Warm dry no rash Neuro General: patient oriented x3, gait normal, no focal motor deficits and CN's II-XI intact bilaterally Psych Other: Cooperative, somewhat belligerent Medical Decision Making Medical Decision Making MDM Narrative: 33-year-old male with a history of opiate use disorder on methadone 185 mg qd, depression, antisocial personality, cocaine use disorder, benzodiazepine abuse, major depression with recurrent, severe psychosis, alcohol use disorder, mood disorder, PTSD, polysubstance use disorder, PTSD, dissociative identity disorder presents requesting his methadone dose. Patient was just discharged from our facility on September 13 after inpatient psychiatric admission. At that time he had a scheduled appointment for 10:00 a.m. on September 14 at [facility] and [facility]. The patient missed the appointment. Patient states he attends [facility], given he has missed doses, he can not reestablish treatment there until Tuesday. Patient here seeking his methadone dose. I do not believe his story, I do not understand why he is here in the ER overnight after missing several doses. I told him there was nothing that we can do until we can verify his dose. He does not have a reasonable explanation as to why he missed his scheduled appointment at [facility]. I am going to order the dose, that was confirmed here at [facility] during his inpatient psych admission, it will need to be verified again with the pharmacy and with the [facility], nursing staff we will call the clinic with the open at 5:30 a.m.. Discharge Plan Discharge Clinical Impression: Opioid use disorder, moderate, dependence Patient Disposition: Home, Self-Care Instructions: Opioid Use Disorder (ED) Additional Instructions: [facility] was contacted. You need to follow their protocol, you need to find a way to get to the clinic in time to receive your scheduled doses. We can not verify methadone dosing overnight. Prescriptions: No Action chlorpromazine 25 mg Tablet 25 mg PO TID PRN (Reason: mild agitation) 30 Days Qty: 90 1RF sennosides [senna] 8.6 mg tablet 17.2 mg PO DAILY 30 Days Qty: 60 1RF clonidine HCl 0.1 mg tablet 0.1 mg PO TID@0900,1300,1700 30 Days Qty: 90 1RF atorvastatin 10 mg tablet 10 mg PO DAILY 30 Days Qty: 30 1RF hydroxyzine HCl 50 mg tablet 50 mg PO QID PRN (Reason: Anxiety) 30 Days Qty: 90 1RF baclofen 20 mg tablet 20 mg PO BID 30 Days Qty: 60 1RF gabapentin 800 mg tablet 800 mg PO TID 30 Days Qty: 90 1RF paroxetine HCl 30 mg tablet 60 mg PO DAILY 30 Days Qty: 60 1RF nicotine 21 mg/24 hr patch 24 hour 1 patch topical DAILY PRN (Reason: nicotine cravings) 28 Days Qty: 28 0RF pramipexole 0.125 mg tablet 0.125 mg PO DAILY 30 Days Qty: 30 1RF docusate sodium 100 mg capsule 100 mg PO BID 30 Days Qty: 60 1RF Rx Instructions: hold for loose stool chlorpromazine 200 mg tablet 200 mg PO BEDTIME 30 Days Qty: 30 1RF naproxen 500 mg tablet 500 mg PO BID PRN (Reason: pain) Qty: 60 0RF nicotine (polacrilex) 2 mg lozenge 2 mg PO Q2H PRN (Reason: Nicotine Cravings) 30 Days Qty: 108 0RF Rx Instructions: DNE 20/DAY methadone [Methadose] 10 mg/mL concentrate 185 mg PO DAILY Rx Instructions: Partial Fill upon patient request. prazosin 2 mg capsule 6 mg PO BEDTIME Print Language: [place]
--- OUTSIDE RECORDS SUMMARY | 2024-09-16 02:41 | XMS_ITS | Clinical Summary ---
Author Organization [facility] Address [address] [place] [address] Phone Care Team Providers Care Dub Room Engineer Name Role Phone Physician, Pcp Unknown Primary Care Provider Rekha vailable Allergies Active Allergy Reactions Criticality Noted Date Comments Amoxicillin Hives 08/28/2024 Fish Derived Hives 08/28/2024 Penicillins Hives 08/28/2024 Medications baclofen (LIORESAL) 20 mg tablet Take 1 tablet (20 mg total) by mouth 3 (three) times a day. 08/28/19 25 Active chlorproMAZINE (THORAZINE) 25 mg tablet Take 1 tablet (25 mg total) by mouth 2 (two) times a day. 08/28/19 25 Active gabapentin (NEURONTIN) 800 mg tablet Take 1 tablet (800 mg total) by mouth 3 (three) times a day. 03/02/20 24 Active hydrOXYzine HCL (ATARAX) 50 mg tablet Take 1 tablet (50 mg total) by mouth every 8 (eight) hours if needed for anxiety. 03/02/20 24 Active naproxen (NAPROSYN) 500 mg tablet Take 1 tablet (500 mg total) by mouth 2 (two) times a day with meals. Active methadone (DOLOPHINE) 10 mg tabletIndicati ons:Opioid abuse Take 18.5 tablets (185 mg total) by mouth 1 (one) time each day. Max Daily Amount: 185 mg 08/31/19 25 Active nicotine (NICODERM CQ) 21 mg/[address] 1 patch on the skin 1 (one) time each day. 30 each 09/01/19 25 025 Active nicotine polacrilex (NICORETTE) [address] 1 each (4 mg total) into mouth between cheek and gum every 2 (two) hours if needed for smoking cessation. 100 each 08/31/19 25 Active prazosin (MINIPRESS) 2 mg capsule Take 1 capsule (2 mg total) by mouth at bedtime. 30 each 08/31/19 25 Active PARoxetine (PAXIL) 30 mg tablet Take 1 tablet (30 mg total) by mouth at bedtime. 30 each 08/31/19 25 Active cloNIDine (CATAPRES) 0.1 mg tablet Take 1 tablet (0.1 mg total) by mouth 2 (two) times a day. 60 each 08/31/19 25 Active pramipexole (MIRAPEX) 0.125 mg tabletIndicati ons:restless leg syndrome Take 1 tablet (0.125 mg total) by mouth 3 (three) times a day. 90 each 08/31/19 25 Active naloxone (NARCAN) 4 mg/0.1 mL nasal sprayIndicatio ns:opioid overdose,opioi d-induced respiratory depression Administer 1 each (4 mg total) into affected nostril(s) if needed for opioid reversal or respiratory depression. Give 4 mg (1 spray) into one nostril. May repeat every 2-3 minutes if needed, alternating nostrils, until medical assistance becomes available. 2 each 08/31/19 Active cloNIDine (CATAPRES) 0.1 mg tablet Take 1 tablet (0.1 mg total) by mouth 3 (three) times a day if needed (anxiety). 03/02/20 025 Discontinued PARoxetine (PAXIL) 30 mg tablet Take 2 tablets (60 mg total) by mouth at bedtime. 12/06/19 Discontinued pramipexole (MIRAPEX) 0.125 mg tabletIndicati ons:restless leg syndrome Take 1 tablet (0.125 mg total) by mouth 2 (two) times a day. 03/02/20 025 Discontinued prazosin (MINIPRESS) 2 mg capsule Take 3 capsules (6 mg total) by mouth at bedtime. 08/28/19 025 Discontinued QUEtiapine (SEROquel) 100 mg tablet Take 1 tablet (100 mg total) by mouth at bedtime. 03/02/20 24 025 Discontinued(S top Taking at Discharge) acetaminophen (TYLENOL) 500 mg tablet Take 2 tablets (1,000 mg total) by mouth 3 (three) times a day for 10 days. 30 tablet 08/31/19 25 025 Active Problems Problem Noted Date Diagnosed Date Non-traumatic rhabdomyolysis 08/29/2024 Resolved Problems Problem Noted Date Diagnosed Date Resolved Date Rhabdomyolysis 08/29/2024 08/30/2024 Encounters Date Type Department Care Team Description 08/28/2024 11:18 PM EDT - 08/30/2024 3:01 PM EDT Hospital Encounter [facility]rology [address] [place] [address] Kolby Leon MD Seralathan, Manikandan, MD Non-traumatic rhabdomyolysis (Primary Dx); Suicidal ideation; Cocaine abuse ([facility]); Opioid abuse ([facility]) Discharge Disposition: Psychiatric Hospital from Last 3 Months Medical History Medical History Date Comments Substance abuse Social History Tobacco Use Types Packs/Day Years Used Date Smoking Tobacco: Every Day Cigarettes 0.5 0.3 Started: 2024 Smokeless Tobacco: Never Tobacco Cessation:Ready to Q uit: No; Counseling Given: Yes Alcohol Use Standard Drinks/Week Comments Not Currently 0 (1 standard drink = 0.6 oz pur e alcohol) Housing Instability Answer Date Recorde d Are you worried that in the next 2 months you may not have stable housing? Patient declined 08/29/2024 Food Access & Nutrition Answer Date Rec orded Do you have access to a vari ety of food including fruits and vegetables? Patient declined 08/29/2024 Health Literacy Answer Date Recorded How often do you need to hav e someone help you when you read instructions, pamphlets, or other written material from your doctor or pharmacy? Patient declined 08/29/2024 Caregiver: How often do you need to have someone help you when you read instructions, pamphlets, or other written material from your doctor or pharmacy? Not on file 025 Financial Risk Answer Date Recorded How hard is it for you to pa y for the very basics like food, housing, medical care, and air conditioning / heating? Patient declined 08/29/2024 Transportation Answer Date Recorded Has the lack of transportati on kept you from meetings, work, or from getting things needed for daily living? Patient declined 08/29/2024 Has the lack of transportati on kept you from medical appointments or from getting medications? Patient declined 08/29/2024 Social Isolation Answer Date Recorded How often do you feel lonely or isolated from those around you? Patient declined 08/29/2024 Food Risk Answer Date Recorded Within the past 12 months we worried whether our food would run out before we got money to buy more. Patient declined 025 Within the past 12 months th e food we bought just didn't last and we didn't have money to get more. Patient declined 08/11 Dependent Care Answer Date Recorded Do you need help finding or paying for care for your loved ones. For example, child neurologist or elderly care for an older adult? Patient declined 08/29/2024 Education Answer Date Recorded Do you think completing more education or training, like finishing a GED, going to college, or learning a trade, would be helpful for you? Patient declined 08/29/2024 Employment and Income Answer Date Recor ded During the last four weeks, have you been actively looking for work? Patient declined 08/29/2024 Living Situation Answer Date Recorded What is your living situation? 0 08/29/2024 Interpersonal Safety Answer Date Record ed Physical Abuse 08/29/2024 Verbal Abuse 08/29/2024 Sex and Gender Information Value Date Recorded Sex Assigned at Male 08/29/2024 2:27 AM EDT Legal Sex Male 12:20 PM EST Gender Identity Male 08/29/2024 2:27 AM EDT Sexual Orientation Choose not to disclose 2024 2:27 AM EDT Obstetrics History Last Filed Vital Signs Vital Sign Reading Time Taken Comments Blood Pressure 111/76 08/30/2024 8:06 AM EDT Pulse 69 08/30/2024 8:06 AM EDT Temperature 36.3 ??C (97.3 ??F) 08/30/2024 8:06 AM ED T Respiratory Rate 17 08/30/2024 8:06 AM EDT Oxygen Saturation 99% 08/30/2024 8:06 AM EDT Inhaled Oxygen Concentration - - Weight 108 kg (237 lb 12.8 oz) 08/29/2024 8:10 A M EDT Height 177.8 cm (5' 10 ) 08/29/2024 8:10 AM EDT Body Mass Index 34.12 08/29/2024 8:10 AM EDT Plan of Treatment Health Maintenance Due Date Last Done Comments DTaP,Tdap,and Td Vaccines (1 - Tdap) 2009 Hepatitis B Vaccines (1 of 3 - 19+ 3-dose series) 2009 Pneumococcal Vaccine: Pediat rics (0 to 5 Years) and At-Risk Patients (6 to 64 Years) (1 of 2 - PCV) 2009 Cholesterol Screening (Lipid Panel) 05/11/2022 Depression Screening 05/11/2022 HIV Screening 05/11/2022 Hepatitis C Screening 05/11/2022 COVID-19 Vaccine (2 - 2023-2 5 season) 2024 01/11/2022 Influenza Vaccine (#1) 2024 Social Influencers of Health Screening 08/29/2025 08/29/2024 HIB Vaccines Aged Out No longer eligi ble based on patient's age to complete this topic HPV Vaccines Aged Out No longer eligi ble based on patient's age to complete this topic Hepatitis A Vaccines Aged Out No long er eligible based on patient's age to complete this topic IPV Vaccines Aged Out No longer eligi ble based on patient's age to complete this topic MMR Vaccines Aged Out No longer eligi ble based on patient's age to complete this topic Meningococcal ACWY Vaccine Aged Out N o longer eligible based on patient's age to complete this topic Meningococcal B Vacine Aged Out No lo nger eligible based on patient's age to complete this topic RSV Immunization Patients Un douglas 20 months Aged Out No longer eligible b ased on patient's age to complete this topic Varicella Vaccines Aged Out No longer eligible based on patient's age to complete this topic Procedures Procedure Name Priority Date/Time Associated Diagnosis Comments CBC WITH AUTO DIFFERENTIAL Routine 08/30/2024 7:19 AM EDT CREATINE KINASE Timed 08/30/2024 7:19 AM EDT MAGNESIUM Timed 08/30/2024 7:19 AM EDT CBC AND DIFFERENTIAL Routine 08/30/2024 7:19 AM EDT BASIC METABOLIC PANEL Routine 08/30/2024 7:19 AM EDT ECG ANNOTATED 08/30/2024 PATHAK URINE CULTURE TUBE STAT 08/29/2024 8:30 AM EDT URINALYSIS WITH REFLEX MICROSCOPIC AND CULTURE STAT 08/29/2024 8:30 AM EDT URINALYSIS WITH REFLEX MICROSCOPIC AND CULTURE STAT 08/29/2024 8:30 AM EDT METHADONE SCREEN, URINE STAT 08/29/2024 8:30 AM EDT PHENCYCLIDINE, URINE STAT 08/29/2024 8:30 AM EDT BUPRENORPHINE SCREEN, URINE STAT 08/29/2024 8:30 AM EDT DRUG ABUSE SCREEN 8A PANEL, URINE STAT 08/29/2024 8:30 AM EDT CREATINE KINASE Routine 08/29/2024 5:38 AM EDT CBC WITH AUTO DIFFERENTIAL Routine 08/29/2024 5:38 AM EDT CBC AND DIFFERENTIAL Routine 08/29/2024 5:38 AM EDT COMPREHENSIVE METABOLIC PANEL Routine 08/29/2024 5:38 AM EDT TROPONIN I HIGH SENSITIVITY STAT 08/29/2024 3:26 AM EDT TROPONIN I HIGH SENSITIVITY STAT 08/29/2024 2:04 AM EDT CREATINE KINASE Add-On 08/28/2024 11:11 PM EDT CBC WITH AUTO DIFFERENTIAL STAT 08/28/2024 11:11 PM EDT SALICYLATE LEVEL STAT 08/28/2024 11:1 1 PM EDT ACETAMINOPHEN LEVEL STAT 08/28/2024 1 1:11 PM EDT ETHANOL STAT 08/28/2024 11:11 PM EDT COMPREHENSIVE METABOLIC PANEL STAT 08/28/2024 11:11 PM EDT CBC AND DIFFERENTIAL STAT 08/28/2024 11:11 PM EDT from Last 3 Months Results * (ABNORMAL) CBC auto differential (08/30/2024 7:19 AM EDT) Only the most recent of3 resultswithin the time period is included. WBC 4.1(L) 4.8 - 10.8 K/mcL LAB HEMETOLOGY METHOD 08/30/2024 7:[address] [facility] RBC 3.30(L) 4.50 - 5.50 M/mcL LAB HEMETOLOGY METHOD 08/30/2024 7:[address] [facility] Hemoglobin 9.1(L) 13.5 - 17.5 g/dL LAB HEMETOLOGY METHOD 08/30/2024 7:[address] [facility] Hematocrit 29.8(L) 42.0 - 54.0 % LAB HEMETOLOGY METHOD 08/30[facility]24 [facility] MCV 89.2 79.0 - 98.0 FL LAB HEMETOLOGY METHOD 08/30/2024 7:[address] [facility] MCH 27.2 27.0 - 32.0 pcg LAB HEMETOLOGY METHOD 08/30/2024 7:[address] [facility] MCHC 30.5(L) 32.0 - 37.0 g/dL LAB HEMETOLOGY METHOD 08/30/2024 7:[address] [facility] RDW 16.1(H) 11.0 - 15.0 % LAB HEMETOLOGY METHOD 08/30/2024 7:[address] [facility] Platelets 170 130 - 400 K/mcL LAB HEMETOLOGY METHOD 08/30/2024 7:[address] [facility] MPV 11.1(H) 7.0 - 11.0 FL LAB HEMETOLOGY METHOD 08/30/2024 7:[address] [facility] NRBC 0.0 <1.0 % LAB HEMETOLOGY METHOD 08/30/2024 7:[address] [facility] NRBC Absolute 0.00 <0.10 K/mcL LAB HEMETOLOGY METHOD 08/30/2024 7:[address] [facility] Neutrophils Relative 26.2 % LAB HEMETOLOGY METHOD 08/30/2024 7:[address] [facility] Lymphocytes Relative 52.3 % LAB HEMETOLOGY METHOD 08/30/2024 7:[address] [facility] Monocytes Relative 10.9 % LAB HEMETOLOGY METHOD 08/30/2024 7:[address] [facility] Eosinophils Relative 9.2 % LAB HEMETOLOGY METHOD 08/30/2024 7:[address] [facility] Basophils Relative 1.2 % LAB HEMETOLOGY METHOD 08/30/2024 7:[address] [facility] Immature Granulocytes Relative 0.2 % LAB HEMETOLOGY METHOD 08/30/2024 7:[address] [facility] Neutrophils Absolute 1.08(L) 1.50 - 7.00 K/mcL LAB HEMETOLOGY METHOD 08/30/2024 7:[address] [facility] Lymphocytes Absolute 2.16 1.00 - 5.00 K/mcL LAB HEMETOLOGY METHOD 08/30/2024 7:47 AM EDT [facility] Monocytes Absolute 0.45 0.20 - 1.00 K/mcL LAB HEMETOLOGY METHOD 08/30/2024 7:47 AM EDT [facility] Eosinophils Absolute 0.38 0.00 - 0.50 K/[facility] LAB HEMETOLOGY METHOD 08/30/2024 7:47 AM EDT [facility] Basophils Absolute 0.05 0.00 - 0.20 K/[facility] LAB HEMETOLOGY METHOD 08/30/2024 7:47 AM EDT [facility] Immature Granulocytes Absolute 0.01 0.00 - 0.03 K/[facility] LAB HEMETOLOGY METHOD 08/30/2024 7:47 AM EDT [facility] Blood Venous blood specimen / Unknown Venipuncture / Unknown 08/30/2024 7:19 AM EDT 08/30/2024 7:39 AM EDT [place]rey [place] LAB BLOOD ORDERABLES Final Result Performing Organization Address City/[facility]/ZIP Co de Phone Number [facility] [address] [place] [address], [place] [phone] * Magnesium (08/30/2024 7:19 AM EDT) Magnesium 2.0 1.9 - 2.6 mg/dL LAB CHEMISTRY METHOD 08/30/2024 8:35 AM EDT [facility] Blood Venous blood specimen / Unknown Venipuncture / Unknown 08/30/2024 7:19 AM EDT 08/30/2024 7:38 AM EDT Audrey [place] LAB BLOOD ORDERABLES Final Result [facility] [address] [place] [address], [place] [phone] * (ABNORMAL) Creatine kinase (08/30/2024 7:19 AM EDT) Only the most recent of3 resultswithin the time period is included. [facility] Total CK 1,758(H) 22 - 269 unit/L LAB CHEMISTRY METHOD 08/30/2024 8:[address] [facility] Blood Venous blood specimen / Unknown Venipuncture / Unknown 08/30/2024 7:19 AM EDT 08/30/2024 7:38 AM EDT Audrey ANDERSON LAB BLOOD ORDERABLES Final Result [facility] [address] [place] [address], [place] [phone] * (ABNORMAL) Basic metabolic panel (08/30/2024 7:19 AM EDT) [facility] Sodium 139 133 - 145 mmol/L LAB CHEMISTRY METHOD 08/30/2024 8:[address] [facility] Potassium 4.3 3.5 - 5.5 mmol/L LAB CHEMISTRY METHOD 08/30/2024 8:[address] [facility] Comment:Hemolysis present Chloride 110 96 - 110 mmol/L LAB CHEMISTRY METHOD 08/30/2024 8:[address] [facility] CO2 25 21 - 32 mmol/L LAB CHEMISTRY METHOD 08/30/2024 8:[address] [facility] Anion Gap 4 3 - 11 LAB CHEMISTRY METHOD 08/30/2024 8:[address] [facility] Glucose 106(H) 70 - 100 mg/dL LAB CHEMISTRY METHOD 08/30/2024 8:[address] [facility] BUN 16 5 - 25 mg/dL LAB CHEMISTRY METHOD 08/30/2024 8:[address] [facility] Creatinine 0.66(L) 0.70 - 1.30 mg/dL LAB CHEMISTRY METHOD 08/30/2024 8:35 AM EDT [facility] eGFR 127 >=60 mL/min/1. 73m2 LAB CHEMISTRY METHOD 08/30/2024 8:35 AM EDT [facility] Comment:Calculation based on the??Chronic Kidney Disease Epidemiology Collaboration (CKD-EPI) equation refit??without adjustment for race. BUN/Creatinine Ratio 24.2 LAB CHEMISTRY METHOD 08/30/2024 8:35 AM EDT [facility] Calcium 8.0(L) 8.5 - 10.5 mg/dL LAB CHEMISTRY METHOD 08/30/2024 8:35 AM T [facility] Blood Venous blood specimen / Unknown Venipuncture / Unknown 08/30/2024 7:19 AM EDT 08/30/2024 7:38 AM EDT Audrey ANDERSON LAB BLOOD ORDERABLES Final Result [facility] [address] [place] [address], * ECG-Annotated (08/30/2024) us Provider Onbase ECG ORDERABLES Final Result * (ABNORMAL) Urinalysis with reflex microscopic and culture (08/29/2024 8:30 AM EDT) Specific [place] Urine 1.032(H) 1.003 - 1.030 LAB URINALYSIS - AUTOMATED METHOD 08/29/2024 8:43 AM EDT [facility] pH, Urine 6.0 5.0 - 8.0 pH LAB URINALYSIS - AUTOMATED METHOD 08/29/2024 8:[address] [facility] Leukocytes, Urine Negative Negative LAB URINALYSIS - AUTOMATED METHOD 08/29/2024 8:43 AM T [facility] Nitrite, Urine Negative Negative LAB URINALYSIS - AUTOMATED METHOD 08/29/2024 8:43 AM EDT [facility] Protein, Urine Trace <=Trace mg/dL LAB URINALYSIS - AUTOMATED METHOD 08/29/2024 8:43 AM EDT [facility] Glucose, Urine Negative Negative mg/dL LAB URINALYSIS - AUTOMATED METHOD 08/29/2024 8:43 AM T [facility] Ketones, Urine 15(A) Negative mg/dL LAB URINALYSIS - AUTOMATED METHOD 08/29/2024 8:43 AM EDT [facility] Urobilinogen, Urine 1.0 0.2 - 1.0 mg/dL LAB URINALYSIS - AUTOMATED METHOD 08/29/2024 8:[address] [facility] Bilirubin, Urine Negative Negative LAB URINALYSIS - AUTOMATED METHOD 08/29/2024 8:[address] [facility] Blood, Urine Negative Negative LAB URINALYSIS - AUTOMATED METHOD 08/29/2024 8:[address] [facility] Urine Urine specimen obtained by clean catch procedure / Unknown Non-blood Collection / Unknown 08/29/2024 8:30 AM EDT 08/29/2024 8:38 AM EDT Tran ANDERSON LAB URINE ORDERABLES Final Resul t [facility] [address] [place] [address], * Pathak urine culture tube (08/29/2024 8:30 AM EDT) Extra Tube Hold for add-ons. 08/29/2024 10:02 AM EDT [facility] Comment:Auto resulted. Urine Urine specimen obtained by clean catch procedure / Unknown Non-blood Collection / Unknown 08/29/2024 8:30 AM EDT 08/29/2024 8:38 AM EDT us Tran ANDERSON LAB URINE ORDERABLES Final Resul t [facility] [address] [place] [address], * (ABNORMAL) Drug abuse screen 8a panel, urine (08/29/2024 8:30 AM EDT) Amphetamine Screen, Ur Negative Negative LAB CHEMISTRY METHOD 5 9:18 AM EDT [facility] Comment:Certain OTC medicati ons containing ephedrine, phenylephrine, pseudoephedrine and phenylpropanolamine can cause false positive results. Barbiturate Screen, Ur Negative Negative LAB CHEMISTRY METHOD 5 9:18 AM EDT [facility] Benzodiazepine Screen, Ur Positive(A ) Negative LAB CHEMISTRY METHOD 5 9:18 AM EDT [facility] Cocaine Screen, Ur Positive(A ) Negative LAB CHEMISTRY METHOD 5 9:[address] [facility] Opiate Screen, Ur Negative Negative LAB CHEMISTRY METHOD 5 9:[address] [facility] Cannabinoid (THC) Screen, Ur Positive(A ) Negative LAB CHEMISTRY METHOD 5 9:[address] [facility] Comment:Specimens from patie nts taking pantoprazole sodium (Protonix) have been shown to produce false positive results. Oxycodone Screen, Ur Negative Negative LAB CHEMISTRY METHOD 5 9:18 AM EDT [facility] Fentanyl, Ur Positive(A ) Negative LAB CHEMISTRY METHOD 5 9:[address] [facility] Urine Urine specimen obtained by clean catch procedure / Unknown Non-blood Collection / Unknown 08/29/2024 8:30 AM EDT 08/29/2024 8:38 AM EDT Narrative [facility] - 08/29/2024 9:18 AM EDT Assay cutoffs: Amphetamines ? 1000 ng/mL Barbiturates ?200 ng/mL Benzodiazepines ?? 200 ng/mL Cocaine ? 300 ng/mL Fentanyl ?1 ng/mL Opiates ? 300 ng/mL Oxycodone ? 100 ng/mL THC ?50 ng/mL Semi-quantitative assay for screening purposes only. Unconfirmed screening result should not be used for non-medical purposes. *ALTERNATE METHOD CONFIRMATION DONE UPON REQUEST ONLY* Kolby Leon MD LAB URINE ORDERABLES Final Res ult Performing Organization Address [facility] de Phone Number [facility] [address] [place] [address], * Buprenorphine screen, urine (08/29/2024 8:30 AM EDT) [facility] Buprenorphine Screen Urine Negative Negative LAB CHEMISTRY METHOD 08/29/2024 9:02 AM EDT [facility] Urine Urine specimen obtained by clean catch procedure / Unknown Non-blood Collection / Unknown 08/29/2024 8:30 AM EDT 08/29/2024 8:38 AM EDT [facility] - 08/29/2024 9:02 AM EDT Assay cutoff 5 ng/mL Semi-quantitative assay for screening purposes only. Unconfirmed screening result should not be used for non-medical purposes. *ALTERNATE METHOD CONFIRMATION DONE UPON REQUEST ONLY* Kolby Leon MD LAB URINE ORDERABLES Final Res ult Performing Organization Address [facility] de Phone Number [facility] [address] [place] [address], * (ABNORMAL) Methadone, urine (08/29/2024 8:30 AM EDT) Pathologist [facility] Methadone Screen, Urine Positive (A) Negative LAB CHEMISTRY METHOD 08/29/2024 9:02 AM EDT [facility] Comment: Assay cutoff 300 ng/mL Semi-quantitative assay for screening purposes only. Unconfirmed screening result should not be used for non-medical purposes. *ALTERNATE METHOD CONFIRMATION DONE UPON REQUEST ONLY* Urine Urine specimen obtained by clean catch procedure / Unknown Non-blood Collection / Unknown 08/29/2024 8:30 AM EDT 08/29/2024 8:38 AM EDT Kolby Leon MD LAB URINE ORDERABLES Final Res ult Performing Organization Address [facility] Co de Phone Number [facility] [address] [place] [address], [place] [phone] * Phencyclidine, urine (08/29/2024 8:30 AM EDT) [facility] PCP Scrn, Ur Negative Negative LAB CHEMISTRY METHOD 08/29/2024 9:02 AM EDT [facility] Comment: Assay cutoff 25 ng/mL Semi-quantitative assay for screening purposes only. Unconfirmed screening result should not be used for non-medical purposes. *ALTERNATE METHOD CONFIRMATION DONE UPON REQUEST ONLY* Urine Urine specimen obtained by clean catch procedure / Unknown Non-blood Collection / Unknown 08/29/2024 8:30 AM EDT 08/29/2024 8:38 AM EDT Kolby Leon MD LAB URINE ORDERABLES Final Res ult Performing Organization Address [facility]/ZIP Co de Phone Number [facility] [address] [place] [address], [place] [phone] * (ABNORMAL) Comprehensive metabolic panel (08/29/2024 5:38 AM EDT) Only the most recent of2 resultswithin the time period is included. [facility] Sodium 140 133 - 145 mmol/L LAB CHEMISTRY METHOD 08/29/2024 6:[address] [facility] Potassium 3.7 3.5 - 5.5 mmol/L LAB CHEMISTRY METHOD 08/29/2024 6:[address] [facility] Chloride 110 96 - 110 mmol/L LAB CHEMISTRY METHOD 08/29/2024 6:[address] [facility] CO2 25 21 - 32 mmol/L LAB CHEMISTRY METHOD 08/29/2024 6:[address] [facility] Anion Gap 5 3 - 11 LAB CHEMISTRY METHOD 08/29/2024 6:[address] [facility] Glucose 101(H) 70 - 100 mg/dL LAB CHEMISTRY METHOD 08/29/2024 6:[address] [facility] BUN 30(H) 5 - 25 mg/dL LAB CHEMISTRY METHOD 08/29/2024 6:[address] [facility] Creatinine 0.75 0.70 - 1.30 mg/dL LAB CHEMISTRY METHOD 08/29/2024 6:[address] [facility] eGFR 122 >=60 mL/min/1. 73m2 LAB CHEMISTRY METHOD 08/29/2024 6:[address] [facility] Comment:Calculation based on the??Chronic Kidney Disease Epidemiology Collaboration (CKD-EPI) equation refit??without adjustment for race. BUN/Creatinine Ratio 40.0 LAB CHEMISTRY METHOD 08/29/2024 6:[address] [facility] Calcium 8.3(L) 8.5 - 10.5 mg/dL LAB CHEMISTRY METHOD 08/29/2024 6:[address] [facility] AST (SGOT) 95(H) 10 - 42 unit/L LAB CHEMISTRY METHOD 08/29/2024 6:[address] [facility] ALT (SGPT) 44 10 - 60 unit/L LAB CHEMISTRY METHOD 08/29/2024 6:20 AM EDT [facility] Alkaline Phosphatase 59 42 - 121 unit/L LAB CHEMISTRY METHOD 08/29/2024 6:20 AM EDT [facility] Total Protein 6.1 6.0 - 8.0 g/dL LAB CHEMISTRY METHOD 08/29/2024 6:20 AM EDT [facility] Albumin 3.2 3.2 - 5.0 g/dL LAB CHEMISTRY METHOD 08/29/2024 6:20 AM EDT [facility] Total Bilirubin 0.3 0.0 - 1.4 mg/dL LAB CHEMISTRY METHOD 08/29/2024 6:20 AM EDT [facility] Blood Venous blood specimen / Unknown Venipuncture / Unknown 08/29/2024 5:38 AM EDT 08/29/2024 5:50 AM EDT Zulema ANDERSON LAB BLOOD ORDERABLES nal Result [facility] [address] [place] [address], * Troponin I high sensitivity (08/29/2024 3:26 AM EDT) Only the most recent of2 resultswithin the time period is included. High Sensitivity Troponin I 49 <=79 ng/L LAB CHEMISTRY METHOD 08/29/2024 4:01 AM EDT [facility] Blood Venous blood specimen / Unknown Venipuncture / Unknown 08/29/2024 3:26 AM EDT 08/29/2024 3:32 AM EDT Narrative [facility] - 08/29/2024 4:01 AM EDT High levels of biotin in samples may falsely decrease hsTroponin values. ??Use caution when interpreting hsTroponin results in patients taking biotin who exhibit renal impairment (eGFR <60) or in patients taking more than 20 mg/day of biotin. Jai Emery MD LAB BLOOD ORDERABLES Final Result [facility] [address] [place] [address], [place] [phone] * Ethanol (08/28/2024 11:11 PM EDT) Ethanol Level 5 0 - 10 mg/dL LAB CHEMISTRY METHOD 08/28/2024 11:49 PM EDT [facility] Blood Venous blood specimen / Unknown Venipuncture / Unknown 08/28/2024 11:11 PM EDT 08/28/2024 11:19 PM EDT Kolby Leon MD LAB BLOOD ORDERABLES Final Res ult Performing Organization Address [facility] Co de Phone Number [facility] [address] [place] [address], [place] [phone] * (ABNORMAL) Acetaminophen level (08/28/2024 11:11 PM EDT) Acetaminophen Level <2.0(L) 10.0 - 30.0 mcg/mL LAB CHEMISTRY METHOD 08/28/2024 11:53 PM EDT [facility] Blood Venous blood specimen / Unknown Venipuncture / Unknown 08/28/2024 11:11 PM EDT 08/28/2024 11:19 PM EDT Kolby Leon MD LAB BLOOD ORDERABLES Final Res ult Performing Organization Address City/[facility]/ZIP Co de Phone Number [facility] [address] [place] [address], [place] [phone] * (ABNORMAL) Salicylate level (08/28/2024 11:11 PM EDT) Salicylate Level <1.7(L) 2.0 - 29.0 mg/dL LAB CHEMISTRY METHOD 08/28/2024 11:49 PM EDT [facility] Blood Venous blood specimen / Unknown Venipuncture / Unknown 08/28/2024 11:11 PM EDT 08/28/2024 11:19 PM EDT us Kolby Leon MD LAB BLOOD ORDERABLES Final Res ult [facility] [address] [place] [address], [place] [phone] from Last 3 Months Insurance [facility] [employer] Advance Directives * Full Code - Default (Latest Code Status on File) Date Activated Date Inactivated Comments 08/29/2024 1:53 AM 08/30/2024 5:01 PM This is orde r is used when code status has not been discussed with the patient, or code status is otherwise unknown/unconfirmed To update the patient's code status, place a code status order. Do not modify or discontinue any currently active code status orders. Care Teams Dub Room Engineer Relationship Specialty Start Date End Date Physician, Pcp Unknown PCP - General 08/29/24
[2024-09-16 06:28] VITALS: BP 137/84; PULSE 60; RESP 14; TEMP 36.1; O2SAT 94
[2024-09-16] MEDS: methADONE HCl 20 MG/2 ML ORAL.CONC 185 MG PO (07:01)
[2024-09-16 07:06] VITALS: BP 137/84; PULSE 60; RESP 14; TEMP 36.1; O2SAT 94
--- NOTE | 2024-09-16 07:07 | PC.NURSE ---
/ brett rizo'd giving pt methadone dose based on last dose here at [facility], pt has not been seen in [facility] clinic in one month now inactivate status according to [facility] overnight nurse. They were unable to provide verification left
== END 2024-09-16 07:09 | disposition home or self-care (01) ==
PROVIDERS: Emergency Provider Emergency Medicine
DX: F11.20 Opioid dependence, uncomplicated (principal); F43.10 Post-traumatic stress disorder, unspecified; F33.3 Major depressive disorder, recurrent, severe with psychotic symptoms; F60.2 Antisocial personality disorder; F13.10 Sedative, hypnotic or anxiolytic abuse, uncomplicated; F14.20 Cocaine dependence, uncomplicated
CPT/HCPCS: 99282; 99283

== ENCOUNTER 2024-09-16 08:38 | Emergency (ER) | payer OTHER, SELFPAY ==
[2024-09-16 08:46] VITALS: BP 122/72; PULSE 71; RESP 16; TEMP 36.1; O2SAT 94; BMI 33.0
--- OUTSIDE RECORDS SUMMARY | 2024-09-16 09:00 | XMS_ITS | Clinical Summary ---
Author Organization [facility] Address [address] [place] [address] Phone Care Team Providers Care Quality Control Microbiology Supervisor Name Role Phone Physician, Pcp Unknown Primary [...] - 08/30/2024 3:01 PM EDT Hospital Encounter [facility] Urology Unit [address] [place] [address] Kolby Leon MD Seralathan, Manikandan, MD Non-traumatic rhabdomyolysis (Primary Dx); Suicidal ideation; Cocaine abuse ([facility]); Opioid abuse ([facility]) Discharge Disposition: Psychiatric Hospital from Last [...] for your loved ones. For example, child care supervisor or elderly care for an older adult? [...] K/mcL LAB HEMETOLOGY METHOD 08/30/2024 7:47 AM [facility] RBC 3.30(L) 4.50 - 5.50 M/mcL LAB HEMETOLOGY METHOD 08/30/2024 7:47 AM [facility] Hemoglobin 9.1(L) 13.5 - 17.5 g/dL LAB HEMETOLOGY METHOD 08/30/2024 7:47 AM [facility] Hematocrit 29.8(L) 42.0 - 54.0 % LAB [facility] MCV 89.2 79.0 - 98.0 FL LAB HEMETOLOGY METHOD 08/30/2024 7:47 AM [facility] MCH 27.2 27.0 - 32.0 pcg LAB HEMETOLOGY METHOD 08/30/2024 7:47 AM [facility] MCHC 30.5(L) 32.0 - 37.0 g/dL LAB HEMETOLOGY METHOD 08/30/2024 7:47 AM [facility] RDW 16.1(H) 11.0 - 15.0 % LAB HEMETOLOGY METHOD 08/30/2024 7:47 AM [facility] Platelets 170 130 - 400 K/mcL LAB HEMETOLOGY METHOD 08/30/2024 7:47 AM [facility] MPV 11.1(H) 7.0 - 11.0 FL LAB HEMETOLOGY METHOD 08/30/2024 7:47 AM [facility] NRBC 0.0 <1.0 % LAB HEMETOLOGY METHOD 08/30/2024 7:47 AM [facility] NRBC Absolute 0.00 <0.10 K/mcL LAB HEMETOLOGY METHOD 08/30/2024 7:47 AM [facility] Neutrophils Relative 26.2 % LAB HEMETOLOGY METHOD 08/30/2024 7:47 AM [facility] Lymphocytes Relative 52.3 % LAB HEMETOLOGY METHOD 08/30/2024 7:47 AM [facility] Monocytes Relative 10.9 % LAB HEMETOLOGY METHOD 08/30/2024 7:47 AM [facility] Eosinophils Relative 9.2 % LAB HEMETOLOGY METHOD 08/30/2024 7:47 AM [facility] Basophils Relative 1.2 % LAB HEMETOLOGY METHOD 08/30/2024 7:47 AM [facility] Immature Granulocytes Relative 0.2 % LAB HEMETOLOGY METHOD 08/30/2024 7:47 AM [facility] Neutrophils Absolute 1.08(L) 1.50 - 7.00 K/mcL LAB HEMETOLOGY METHOD 08/30/2024 7:47 AM [facility] Lymphocytes Absolute 2.16 1.00 - 5.00 K/mcL LAB HEMETOLOGY METHOD 08/30/2024 7:47 AM EDT [facility] Monocytes Absolute 0.45 0.20 - 1.00 K/mcL LAB HEMETOLOGY METHOD 08/30/2024 7:47 AM EDT [facility] Eosinophils Absolute 0.38 0.00 - 0.50 K/[facility] LAB HEMETOLOGY METHOD 08/30/2024 7:47 AM EDT [facility] Basophils Absolute 0.05 0.00 - 0.20 K/[facility] LAB HEMETOLOGY METHOD 08/30/2024 7:47 AM EDT [facility] Immature Granulocytes Absolute 0.01 0.00 - 0.03 K/[facility] LAB HEMETOLOGY METHOD 08/30/2024 7:47 AM EDT [facility] Blood Venous blood specimen / Unknown Venipuncture / Unknown 08/30/2024 7:19 AM EDT 08/30/2024 7:39 AM EDT [place] LAB BLOOD ORDERABLES Final Result Performing Organization Address City/[facility]/ZIP Co de Phone Number [facility] [address] [place] [address], [place] [phone] * Magnesium (08/30/2024 7:19 AM EDT) Magnesium 2.0 1.9 - 2.6 mg/dL LAB CHEMISTRY METHOD 08/30/2024 8:35 AM EDT [facility] Blood Venous blood specimen / Unknown Venipuncture / Unknown 08/30/2024 7:19 AM EDT 08/30/2024 7:38 AM EDT [place] LAB BLOOD ORDERABLES Final Result [facility] [address] [place] [address], [place] [phone] * (ABNORMAL) Creatine kinase (08/30/2024 7:19 AM EDT) Only the most recent of3 resultswithin the time period is included. [facility] Total CK 1,758(H) 22 - 269 unit/L LAB CHEMISTRY METHOD 08/30/2024 8:35 AM [facility] Blood Venous blood specimen / Unknown Venipuncture / Unknown 08/30/2024 7:19 AM EDT 08/30/2024 7:38 AM EDT Audrey ANDERSON LAB BLOOD ORDERABLES Final Result [facility] [address] [place] [address], [place] [phone] * (ABNORMAL) Basic metabolic panel (08/30/2024 7:19 AM EDT) [facility] Sodium 139 133 - 145 mmol/L LAB CHEMISTRY METHOD 08/30/2024 8:35 AM [facility] Potassium 4.3 3.5 - 5.5 mmol/L LAB CHEMISTRY METHOD 08/30/2024 8:35 AM [facility] Comment:Hemolysis present Chloride 110 96 - 110 mmol/L LAB CHEMISTRY METHOD 08/30/2024 8:35 AM [facility] CO2 25 21 - 32 mmol/L LAB CHEMISTRY METHOD 08/30/2024 8:35 AM [facility] Anion Gap 4 3 - 11 LAB CHEMISTRY METHOD 08/30/2024 8:35 AM [facility] Glucose 106(H) 70 - 100 mg/dL LAB CHEMISTRY METHOD 08/30/2024 8:35 AM [facility] BUN 16 5 - 25 mg/dL LAB CHEMISTRY METHOD 08/30/2024 8:35 AM [facility] Creatinine 0.66(L) 0.70 - 1.30 mg/dL LAB CHEMISTRY METHOD 08/30/2024 8:35 AM EDT [facility] eGFR 127 >=60 mL/min/1. 73m2 LAB CHEMISTRY METHOD 08/30/2024 8:35 AM EDT [facility] Comment:Calculation based on the??Chronic Kidney Disease Epidemiology Collaboration (CKD-EPI) equation refit??without adjustment for race. BUN/Creatinine Ratio 24.2 LAB CHEMISTRY METHOD 08/30/2024 8:35 AM EDT [facility] Calcium 8.0(L) 8.5 - 10.5 mg/dL LAB CHEMISTRY METHOD 08/30/2024 8:35 AM T [facility] Blood Venous blood specimen / Unknown Venipuncture / Unknown 08/30/2024 7:19 AM EDT 08/30/2024 7:38 AM EDT Audrey ANDERSON LAB BLOOD ORDERABLES Final Result [facility] [address] [place] [address], * ECG-Annotated (08/30/2024) us Provider Onbase ECG ORDERABLES Final Result * (ABNORMAL) Urinalysis with reflex microscopic and culture (08/29/2024 8:30 AM EDT) Specific [place] Urine 1.032(H) 1.003 - 1.030 LAB URINALYSIS - AUTOMATED METHOD 08/29/2024 8:43 AM EDT [facility] pH, Urine 6.0 5.0 - 8.0 pH LAB URINALYSIS - AUTOMATED METHOD 08/29/2024 8:43 AM [facility] Leukocytes, Urine Negative Negative LAB URINALYSIS - AUTOMATED METHOD 08/29/2024 8:43 AM T [facility] Nitrite, Urine Negative Negative LAB URINALYSIS - AUTOMATED METHOD 08/29/2024 8:43 AM EDT [facility] Protein, Urine Trace <=Trace mg/dL LAB URINALYSIS - AUTOMATED METHOD 08/29/2024 8:43 AM EDT [facility] Glucose, Urine Negative Negative mg/dL LAB URINALYSIS - AUTOMATED METHOD 08/29/2024 8:43 AM T [facility] Ketones, Urine 15(A) Negative mg/dL LAB URINALYSIS - AUTOMATED METHOD 08/29/2024 8:43 AM EDT [facility] Urobilinogen, Urine 1.0 0.2 - 1.0 mg/dL LAB URINALYSIS - AUTOMATED METHOD 08/29/2024 8:43 AM [facility] Bilirubin, Urine Negative Negative LAB URINALYSIS - AUTOMATED METHOD 08/29/2024 8:43 AM [facility] Blood, Urine Negative Negative LAB URINALYSIS - AUTOMATED METHOD 08/29/2024 8:43 AM [facility] Urine Urine specimen obtained by clean catch procedure / Unknown Non-blood Collection / Unknown 08/29/2024 8:30 AM EDT 08/29/2024 8:38 AM EDT Tran ANDERSON LAB URINE ORDERABLES Final Resul t [facility] [address] [place] [address], * Pathak urine culture tube (08/29/2024 8:30 AM EDT) Extra Tube Hold for add-ons. 08/29/2024 10:02 AM EDT [facility] Comment:Auto resulted. Urine Urine specimen obtained by clean catch procedure / Unknown Non-blood Collection / Unknown 08/29/2024 8:30 AM EDT 08/29/2024 8:38 AM EDT us Tran ANDERSON LAB URINE ORDERABLES Final Resul t [facility] [address] [place] [address], * (ABNORMAL) Drug abuse screen 8a panel, urine (08/29/2024 8:30 AM EDT) Amphetamine Screen, Ur Negative Negative LAB CHEMISTRY METHOD 5 9:18 AM EDT [facility] Comment:Certain OTC medicati ons containing ephedrine, phenylephrine, pseudoephedrine and phenylpropanolamine can cause false positive results. Barbiturate Screen, Ur Negative Negative LAB CHEMISTRY METHOD 5 9:18 AM EDT [facility] Benzodiazepine Screen, Ur Positive(A ) Negative LAB CHEMISTRY METHOD 5 9:18 AM EDT [facility] Cocaine Screen, Ur Positive(A ) Negative LAB CHEMISTRY METHOD 5 9:18 AM [facility] Opiate Screen, Ur Negative Negative LAB CHEMISTRY METHOD 5 9:18 AM [facility] Cannabinoid (THC) Screen, Ur Positive(A ) Negative LAB CHEMISTRY METHOD 5 9:18 AM [facility] Comment:Specimens from patie nts taking pantoprazole sodium (Protonix) have been shown to produce false positive results. Oxycodone Screen, Ur Negative Negative LAB CHEMISTRY METHOD 5 9:18 AM EDT [facility] Fentanyl, Ur Positive(A ) Negative LAB CHEMISTRY METHOD 5 9:18 AM [facility] Urine Urine specimen obtained by clean catch procedure / Unknown Non-blood Collection / Unknown 08/29/2024 8:30 AM EDT 08/29/2024 8:38 AM EDT Narrative [facility] - 08/29/2024 9:18 AM EDT Assay [...] ORDERABLES Final Res ult Performing Organization Address [facility] de Phone Number [facility] [address] [place] [address], * Buprenorphine screen, urine (08/29/2024 8:30 AM EDT) [facility] Buprenorphine Screen Urine Negative Negative LAB CHEMISTRY METHOD 08/29/2024 9:02 AM EDT [facility] Urine Urine specimen obtained by clean catch procedure / Unknown Non-blood Collection / Unknown 08/29/2024 8:30 AM EDT 08/29/2024 8:38 AM EDT [facility] - 08/29/2024 9:02 AM EDT Assay cutoff 5 ng/mL Semi-quantitative assay for screening purposes only. Unconfirmed screening result should not be used for non-medical purposes. *ALTERNATE METHOD CONFIRMATION DONE UPON REQUEST ONLY* Kolby Leon MD LAB URINE ORDERABLES Final Res ult Performing Organization Address [facility] de Phone Number [facility] [address] [place] [address], * (ABNORMAL) Methadone, urine (08/29/2024 8:30 AM EDT) Pathologist [facility] Methadone Screen, Urine Positive (A) Negative LAB CHEMISTRY METHOD 08/29/2024 9:02 AM EDT [facility] Comment: Assay cutoff 300 ng/mL Semi-quantitative assay for screening purposes only. Unconfirmed screening result should not be used for non-medical purposes. *ALTERNATE METHOD CONFIRMATION DONE UPON REQUEST ONLY* Urine Urine specimen obtained by clean catch procedure / Unknown Non-blood Collection / Unknown 08/29/2024 8:30 AM EDT 08/29/2024 8:38 AM EDT Kolby Leon MD LAB URINE ORDERABLES Final Res ult Performing Organization Address [facility] Co de Phone Number [facility] [address] [place] [address], [place] [phone] * Phencyclidine, urine (08/29/2024 8:30 AM EDT) [facility] PCP Scrn, Ur Negative Negative LAB CHEMISTRY METHOD 08/29/2024 9:02 AM EDT [facility] Comment: Assay cutoff 25 ng/mL Semi-quantitative assay for screening purposes only. Unconfirmed screening result should not be used for non-medical purposes. *ALTERNATE METHOD CONFIRMATION DONE UPON REQUEST ONLY* Urine Urine specimen obtained by clean catch procedure / Unknown Non-blood Collection / Unknown 08/29/2024 8:30 AM EDT 08/29/2024 8:38 AM EDT Kolby Leon MD LAB URINE ORDERABLES Final Res ult Performing Organization Address [facility]/ZIP Co de Phone Number [facility] [address] [place] [address], [place] [phone] * (ABNORMAL) Comprehensive metabolic panel (08/29/2024 5:38 AM EDT) Only the most recent of2 resultswithin the time period is included. [facility] Sodium 140 133 - 145 mmol/L LAB CHEMISTRY METHOD 08/29/2024 6:20 AM [facility] Potassium 3.7 3.5 - 5.5 mmol/L LAB CHEMISTRY METHOD 08/29/2024 6:20 AM [facility] Chloride 110 96 - 110 mmol/L LAB CHEMISTRY METHOD 08/29/2024 6:20 AM [facility] CO2 25 21 - 32 mmol/L LAB CHEMISTRY METHOD 08/29/2024 6:20 AM [facility] Anion Gap 5 3 - 11 LAB CHEMISTRY METHOD 08/29/2024 6:20 AM [facility] Glucose 101(H) 70 - 100 mg/dL LAB CHEMISTRY METHOD 08/29/2024 6:20 AM [facility] BUN 30(H) 5 - 25 mg/dL LAB CHEMISTRY METHOD 08/29/2024 6:20 AM [facility] Creatinine 0.75 0.70 - 1.30 mg/dL LAB CHEMISTRY METHOD 08/29/2024 6:20 AM [facility] eGFR 122 >=60 mL/min/1. 73m2 LAB CHEMISTRY METHOD 08/29/2024 6:20 AM [facility] Comment:Calculation based on the??Chronic Kidney Disease Epidemiology Collaboration (CKD-EPI) equation refit??without adjustment for race. BUN/Creatinine Ratio 40.0 LAB CHEMISTRY METHOD 08/29/2024 6:20 AM [facility] Calcium 8.3(L) 8.5 - 10.5 mg/dL LAB CHEMISTRY METHOD 08/29/2024 6:20 AM [facility] AST (SGOT) 95(H) 10 - 42 unit/L LAB CHEMISTRY METHOD 08/29/2024 6:20 AM [facility] ALT (SGPT) 44 10 - 60 unit/L LAB CHEMISTRY METHOD 08/29/2024 6:20 AM EDT [facility] Alkaline Phosphatase 59 42 - 121 unit/L LAB CHEMISTRY METHOD 08/29/2024 6:20 AM EDT [facility] Total Protein 6.1 6.0 - 8.0 g/dL LAB CHEMISTRY METHOD 08/29/2024 6:20 AM EDT [facility] Albumin 3.2 3.2 - 5.0 g/dL LAB CHEMISTRY METHOD 08/29/2024 6:20 AM EDT [facility] Total Bilirubin 0.3 0.0 - 1.4 mg/dL LAB CHEMISTRY METHOD 08/29/2024 6:20 AM EDT [facility] Blood Venous blood specimen / Unknown Venipuncture / Unknown 08/29/2024 5:38 AM EDT 08/29/2024 5:50 AM EDT Zulema ANDERSON LAB BLOOD ORDERABLES nal Result [facility] [address] [place] [address], * Troponin I high sensitivity (08/29/2024 3:26 AM EDT) Only the most recent of2 resultswithin the time period is included. High Sensitivity Troponin I 49 <=79 ng/L LAB CHEMISTRY METHOD 08/29/2024 4:01 AM EDT [facility] Blood Venous blood specimen / Unknown Venipuncture / Unknown 08/29/2024 3:26 AM EDT 08/29/2024 3:32 AM EDT Narrative [facility] - 08/29/2024 4:01 AM EDT High levels of biotin in samples may falsely decrease hsTroponin values. ??Use caution when interpreting hsTroponin results in patients taking biotin who exhibit renal impairment (eGFR <60) or in patients taking more than 20 mg/day of biotin. Jai Emery MD LAB BLOOD ORDERABLES Final Result [facility] [address] [place] [address], [place] [phone] * Ethanol (08/28/2024 11:11 PM EDT) Ethanol Level 5 0 - 10 mg/dL LAB CHEMISTRY METHOD 08/28/2024 11:49 PM EDT [facility] Blood Venous blood specimen / Unknown Venipuncture / Unknown 08/28/2024 11:11 PM EDT 08/28/2024 11:19 PM EDT Kolby Leon MD LAB BLOOD ORDERABLES Final Res ult Performing Organization Address [facility] Co de Phone Number [facility] [address] [place] [address], [place] [phone] * (ABNORMAL) Acetaminophen level (08/28/2024 11:11 PM EDT) Acetaminophen Level <2.0(L) 10.0 - 30.0 mcg/mL LAB CHEMISTRY METHOD 08/28/2024 11:53 PM EDT [facility] Blood Venous blood specimen / Unknown Venipuncture / Unknown 08/28/2024 11:11 PM EDT 08/28/2024 11:19 PM EDT Kolby Leon MD LAB BLOOD ORDERABLES Final Res ult Performing Organization Address City/[facility]/ZIP Co de Phone Number [facility] [address] [place] [address], [place] [phone] * (ABNORMAL) Salicylate level (08/28/2024 11:11 PM EDT) Salicylate Level <1.7(L) 2.0 - 29.0 mg/dL LAB CHEMISTRY METHOD 08/28/2024 11:49 PM EDT [facility] Blood Venous blood specimen / Unknown Venipuncture / Unknown 08/28/2024 11:11 PM EDT 08/28/2024 11:19 PM EDT us Kolby Leon MD LAB BLOOD ORDERABLES Final Res ult [facility] [address] [place] [address], [place] [phone] from Last 3 Months Insurance [facility] [employer] Advance Directives * Full [...] currently active code status orders. Care Teams Quality Control Microbiology Supervisor Relationship Specialty Start Date End Date Physician, Pcp Unknown PCP - General 08/29/24
--- NOTE | 2024-09-16 09:25 | ED_ITS ---
HPI - Psych General Chief Complaint: Psychiatric Symptoms Stated Complaint: SI Time Seen by Provider: 09/16/24 09:18 Source: patient Mode of arrival: ambulatory Limitations: no limitations History of Present Illness ED Provider: Yasmin Gaona APRN HPI Narrative: 33-year-old male with a history of opiate use disorder on methadone 185 mg qd, depression, antisocial personality, cocaine use disorder, benzodiazepine abuse, major depression with recurrent, severe psychosis, alcohol use disorder, mood disorder, PTSD, polysubstance use disorder, PTSD, dissociative identity disorder who presents to the ER with complaints of suicidal thoughts with plan to overdose on drugs. Of note, the patient was discharged from our facility a few hours ago after being here for a methadone dose. He did receive his dosage at 07:00 this morning. He reports he has had suicidal thoughts for the last 2 days. He denies any HI or hallucinations. He uses cocaine daily. He denies current opiate use per patient. He occasionally drinks alcohol and smokes cigarettes. Patient is seen and med managed by a psychiatrist at [facility]. Related Data Home Medications ?Medication ?Instructions ?Recorded ?Confirmed methadone 10 mg/mL oral 185 mg PO DAILY 08/14/24 09/17/24 concentrate (Methadose) prazosin 2 mg capsule 6 mg PO BEDTIME 09/09/24 09/16/24 Previous Rx's ?Medication ?Instructions ?Recorded atorvastatin 10 mg tablet 10 mg PO DAILY 30 days #30 tabs 01/10/24 baclofen 20 mg tablet 20 mg PO BID 30 days #60 tabs 01/10/24 chlorpromazine 200 mg tablet 200 mg PO BEDTIME 30 days #30 tabs 01/10/24 chlorpromazine 25 mg tablet 25 mg PO TID PRN mild agitation 30 01/10/24 days #90 tabs clonidine HCl 0.1 mg tablet 0.1 mg PO TID@0900,1300,1700 01/10/24 Anxiety 30 days #90 tabs docusate sodium 100 mg capsule 100 mg PO BID 30 days #60 caps 01/10/24 hydroxyzine HCl 50 mg tablet 50 mg PO QID PRN Anxiety 30 days 01/10/24 #90 tabs naproxen 500 mg tablet 500 mg PO BID PRN pain #60 tabs 01/10/24 nicotine (polacrilex) 2 mg buccal 2 mg PO Q2H PRN Nicotine Cravings 01/10/24 lozenge 30 days #108 ea nicotine 21 mg/24 hr daily 1 patch topical DAILY PRN nicotine 01/10/24 transdermal patch cravings 28 days #28 ea paroxetine HCl 30 mg tablet 60 mg (2 x 30 mg) PO DAILY 30 days 01/10/24 #60 tabs pramipexole 0.125 mg tablet 0.125 mg PO DAILY 30 days #30 tabs 01/10/24 sennosides 8.6 mg tablet (senna) 17.2 mg (2 x 8.6 mg) PO DAILY 30 01/10/24 days #60 tabs Allergies Allergy/AdvReac Type Severity Reaction Status Date / Time amoxicillin Allergy Hives Verified 09/16/24 08:49 Penicillins [PCN] Allergy Hives Verified 09/16/24 08:49 seafood Allergy Difficulty Verified 09/16/24 08:49 Breathing PMFSH Past Medical History Medical History (Updated 09/16/24 @ 16:10 by Yasmin Gaona NP) Polysubstance use disorder Opioid use disorder Depression Antisocial personality disorder Cocaine use disorder, moderate, dependence Benzodiazepine abuse MDD (major depressive disorder), recurrent, severe, with psychosis Alcohol use disorder Mood disorder PTSD (post-traumatic stress disorder) Polysubstance (including opioids) dependence, daily use Social History Social History Household Members: None Household Members Other:: homeless Housing: Homeless Do you presently have visiting nurse or other home services: No Unable to assess alcohol history related to: Unknown Alcohol intake: current Alcohol intake frequency: 3 or more drinks per day Alcohol type: hard liquor Comment: Pt ambulates independently Patient Tobacco Use Status: Current everyday Tobacco user Tobacco use type: Cigarette Cigarette Packs Per Day: 1 Cigarettes Per Day: 5 Years Smoked: 20 Smoked in Last 30 Days: Yes e-Cigarette/Vaping Use: Never Used Second Hand Smoke Exposure: No Use of substances other than those prescribed or required for medical reasons: Yes Substance Use Type: Crack/Cocaine and Marijuana Substance Use Frequency: Daily Advance Directives: No Advance Directives Information Provided: Yes Do you have a plan to hurt others: No Plan service: No Current occupational status: unemployed Sexual orientation: Straight/Heterosexual Physical Exam 2 Vital Signs: Vital Signs: Last Vital Signs Temp 97.6 F 09/17/24 04:53 Pulse 75 09/17/24 04:53 Resp 14 09/17/24 04:53 BP 119/76 09/17/24 08:30 Pulse Ox 94 09/17/24 04:53 O2 Del Method Room Air 09/17/24 04:53 BMI result Body Mass Index 33.0 Course Course Course Narrative: 1215- reviewed labs. at this time patient is medically cleared to be seen by care team. An order was placed for CARE team. Placed in physician obs pending disposition. Reevaluation(s) Reevaluation #1: 1600-Section 12, BS for dual diagnosis bed Reevaluation #2: Starting to develop alcohol withdrawal symptoms, we will be initiating the phenobarb protocol Time: 01:17 Reevaluation #3: Time: 07:38 Date: 09/17/24 Provider: Hannah Santos DO Patient in physician observation for psychiatric evaluation.? No acute events reported overnight. on pheno protocol. No current complaints. VS stable.? Patient is in bed search status. Will continue to monitor. Additional Reevaluation(s): Time: 13:10 Date: 09/17/24 Provider: Hannah Santos DO Physician observation ended at 110pm Patient to be admitted as inpatient to psychiatry at [facility] Medications Administered Generic Name Dose Route Start Last Admin Trade Name Archie PRN Reason Stop Dose Admin Atorvastatin Calcium 10 mg 09/17/24 09:00 09/17/24 08:31 Atorvastatin Calcium 10 Mg Tablet PO 10 mg DAILY BESSIE Administration Baclofen 20 mg 09/16/24 23:45 09/17/24 11:07 Baclofen 20 Mg Tablet PO 20 mg BID BESSIE Administration Chlorpromazine HCl 200 mg 09/16/24 23:45 09/17/24 00:28 Chlorpromazine Hcl 100 Mg Tablet PO 200 mg BEDTIME BESSIE Administration Clonidine HCl 0.1 mg 09/17/24 09:00 09/17/24 08:30 Clonidine Hcl 0.1 Mg Tablet PO 0.1 mg TID@0900,1300,1700 BESSIE Administration Protocol Docusate Sodium 100 mg 09/16/24 23:45 09/17/24 11:07 Docusate Sodium 100 Mg Capsule PO 100 mg BID BESSIE Administration Hydroxyzine HCl 50 mg 09/16/24 23:48 09/17/24 00:36 Hydroxyzine Hcl 50 Mg Tablet PO 50 mg QID PRN Administration Anxiety Paroxetine HCl 60 mg 09/17/24 09:00 09/17/24 08:30 Paroxetine Hcl 30 Mg Tablet PO 60 mg DAILY BESSIE Administration Pramipexole Dihydrochloride 0.125 mg 09/17/24 09:00 09/17/24 11:07 Pramipexole Di-Hcl 0.125 Mg Tablet PO 0.125 mg DAILY BESSIE Administration Prazosin HCl 6 mg 09/16/24 23:45 09/17/24 00:28 Prazosin Hcl 1 Mg Capsule PO 6 mg BEDTIME BESSIE Administration Protocol Senna 17.2 mg 09/17/24 09:00 09/17/24 08:31 Sennosides 8.6 Mg Tablet PO 17.2 mg DAILY BESSIE Administration Discontinued Medications Generic Name Dose Route Start Last Admin Trade Name Freq PRN Reason Stop Dose Admin Acetaminophen 975 mg 09/17/24 01:52 09/17/24 01:59 Acetaminophen 325 Mg Tablet PO 09/17/24 01:53 975 mg ONCE ONE Administration Methadone HCl 185 mg 09/17/24 10:04 09/17/24 11:02 Methadone Hcl 20 Mg/2 Ml Oral.Conc PO 09/17/24 10:05 185 mg ONCE ONE Administration Nicotine 21 mg 09/16/24 09:29 09/16/24 09:41 Nicotine 21 Mg Patch.Td24 TRANSDERMA 09/16/24 09:30 21 mg ONCE ONE Administration Phenobarbital Sodium 400 mg 09/17/24 01:18 09/17/24 01:43 Phenobarbital Sodium 130 Mg/Ml Vial IM 09/17/24 01:19 400 mg ONCE ONE Administration Phenobarbital Sodium 165 mg 09/17/24 05:00 09/17/24 05:00 Phenobarbital Sodium 130 Mg/Ml Vial Im Q3hx2 IM 09/17/24 08:01 Not Given Q3H BESSIE Phenobarbital Sodium 165 mg 09/17/24 08:00 09/17/24 11:26 Phenobarbital Sodium 130 Mg/Ml Vial Im Q3hx2 IM 09/17/24 11:01 Not Given Q3H BESSIE Medical Decision Making Medical Decision Making MDM Narrative: 33-year-old male with a history of opiate use disorder on methadone 185 mg qd, depression, antisocial personality, cocaine use disorder, benzodiazepine abuse, major depression with recurrent, severe psychosis, alcohol use disorder, mood disorder, PTSD, polysubstance use disorder, PTSD, dissociative identity disorder who presents to the ER with complaints of suicidal thoughts with plan to overdose on drugs. Of note, the patient was discharged from our facility a few hours ago after being here for a methadone dose. He did receive his dosage at 07:00 this morning. He reports he has had suicidal thoughts for the last 2 days. He denies any HI or hallucinations. He uses cocaine daily. He denies current opiate use per patient. He occasionally drinks alcohol and smokes cigarettes. Patient is seen and med managed by a psychiatrist at [facility]. no concern for acute ingestion or trauma. Vitals are stable Will obtain labs, drug screen and order a care team evaluation Differential Diagnosis Differential Diagnoses: The differential diagnosis associated with the presentation includes polysubstance use, depression Admission/Observation Consideration of admission/observation: Escalation of care including admission/observation considered Consult Healthcare Provider Management of the patient was discussed with: Behavioral Health Provider Seen by Care team. plan for section 12, bed search Lab Data MDM Lab Attestation statement: I reviewed the patient's lab results. 09/16/24 09:37 09/16/24 09:37 Labs: Lab Results 09/16/24 09/16/24 Range/Units 09:37 19:11 WBC 5.4 (4.8-10.8) X10*3/uL RBC 4.36 L (4.60-5.80) X10*6/uL Hgb 11.9 L (14.0-18.0) g/dl Hct 37.1 L (42.0-52.0) % MCV 85.1 (80.0-98.0) fL MCH 27.3 (27.0-33.0) pg MCHC 32.1 (31.0-36.0) g/dl RDW 15.2 (11.0-16.0) % Plt Count 257 (160-400) X10*3/uL MPV 11.1 (9.4-12.4) fL Immature Gran % (Auto) 0.4 (0.0-0.4) % Neut % (Auto) 43.3 L (45-73) % Lymph % (Auto) 34.3 (20-40) % Cochran % (Auto) 12.3 H (2-11) % Eos % (Auto) 9.0 H (0-4) % Baso % (Auto) 0.7 (0-2) % Lymph # (Auto) 1.9 (1.2-4.9) X10*3/uL Cochran # (Auto) 0.7 (0.1-1.2) X10*3/uL Eos # (Auto) 0.5 H (0.0-0.4) X10*3/uL Baso # (Auto) 0.0 (0.0-0.2) X10*3/uL Abs Immat Gran (auto) 0.02 (0.00-0.03) X10*3/uL Absolute Neuts (auto) 2.4 (2.0-8.3) x10*3/uL Absolute Nucleated RBC 0.000 (0.0-0.012) X10*3/uL Nucleated RBC % (auto) 0.0 (0.0-0.2) /100WBC Sodium 142 (135-145) mmol/L Potassium 3.7 (3.3-5.1) mmol/L Chloride 108 (96-108) mmol/L Carbon Dioxide 24 (22-29) mmol/L Anion Gap 14 (12-20) BUN 21 H (9-16) mg/dL Creatinine 0.81 (0.5-1.4) mg/dL Estim Creat Clear Calc 156.9 Estimated GFR > 60 Random Glucose 110 (60-115) mg/dL Calcium 9.1 (8.4-10.2) mg/dL Total Bilirubin 0.4 (0.0-1.0) mg/dL Direct Bilirubin 0.1 (0.0-0.5) mg/dL AST 34 (5-37) U/L ALT 24 (0-40) U/L Alkaline Phosphatase 67 (39-117) U/L Total Protein 7.2 (6.5-8.0) g/dL Albumin 4.4 (3.5-5.0) g/dL Urine Opiates Screen Not Detected (Not Detect) Ur Buprenorphine Scrn Not Detected (Not Detect) ng/mL Ur Oxycodone Screen Not Detected (Not Detect) ng/mL Urine Methadone Screen Positive H (Not Detect) ng/mL Urine Fentanyl Screen POSITIVE H (Not Detect) Ur Barbiturates Screen Not Detected (Not Detect) Ur Phencyclidine Scrn Not Detected (Not Detect) Ur Amphetamines Screen Not Detected (Not Detect) U Benzodiazepines Scrn POSITIVE H (Not Detect) Urine Cocaine Screen POSITIVE H (Not Detect) U Marijuana (THC) Screen POSITIVE H (Not Detect) Ethyl Alcohol < 10 mg/dL Discharge Plan Discharge Clinical Impression: PTSD (post-traumatic stress disorder), Depression Patient Disposition: Xfer Psychiatric Hosp Transfer Details: TO: [facility], [address] [place], [place],[address] Prescriptions: No Action chlorpromazine 25 mg Tablet 25 mg PO TID PRN (Reason: mild agitation) 30 Days Qty: 90 1RF sennosides [senna] 8.6 mg tablet 17.2 mg PO DAILY 30 Days Qty: 60 1RF clonidine HCl 0.1 mg tablet 0.1 mg PO TID@0900,1300,1700 30 Days Qty: 90 1RF atorvastatin 10 mg tablet 10 mg PO DAILY 30 Days Qty: 30 1RF hydroxyzine HCl 50 mg tablet 50 mg PO QID PRN (Reason: Anxiety) 30 Days Qty: 90 1RF baclofen 20 mg tablet 20 mg PO BID 30 Days Qty: 60 1RF paroxetine HCl 30 mg tablet 60 mg PO DAILY 30 Days Qty: 60 1RF nicotine 21 mg/24 hr patch 24 hour 1 patch topical DAILY PRN (Reason: nicotine cravings) 28 Days Qty: 28 0RF pramipexole 0.125 mg tablet 0.125 mg PO DAILY 30 Days Qty: 30 1RF docusate sodium 100 mg capsule 100 mg PO BID 30 Days Qty: 60 1RF Rx Instructions: hold for loose stool chlorpromazine 200 mg tablet 200 mg PO BEDTIME 30 Days Qty: 30 1RF naproxen 500 mg tablet 500 mg PO BID PRN (Reason: pain) Qty: 60 0RF nicotine (polacrilex) 2 mg lozenge 2 mg PO Q2H PRN (Reason: Nicotine Cravings) 30 Days Qty: 108 0RF Rx Instructions: DNE 20/DAY methadone [Methadose] 10 mg/mL concentrate 185 mg PO DAILY Rx Instructions: Partial Fill upon patient request. prazosin 2 mg capsule 6 mg PO BEDTIME Interventions: [place]-Suicide Risk Severity Scale Last Done: 09/16/24 09:34 Print Language: [place]
[2024-09-16] MEDS: Nicotine 21 MG PATCH.TD24 TRANSDERMA (09:41)
[2024-09-16 09:50] LABS: MANUAL DIFF FLAG NO
[2024-09-16 10:03] LABS: Basophils Percent Auto 0.7 % (0-2); Eosinophils Absolute Auto 0.5 X10*3/uL (0.0-0.4); Hematocrit 37.1 % (42.0-52.0); Hemoglobin 11.9 g/dl (14.0-18.0); Imm Gran Abs Auto 0.02 X10*3/uL (0.00-0.03); Imm Gran Pct Auto 0.4 % (0.0-0.4); Lymphocytes Absolute Auto 1.9 X10*3/uL (1.2-4.9); Lymphocytes Percent Auto 34.3 % (20-40); Mean Corpuscular HGB Conc 32.1 g/dl (31.0-36.0); Mean Corpuscular Hemoglobin 27.3 pg (27.0-33.0); Mean Corpuscular Volume 85.1 fL (80.0-98.0); Mean Platelet Volume 11.1 fL (9.4-12.4); Monocytes Absolute Auto 0.7 X10*3/uL (0.1-1.2); Monocytes Percent Auto 12.3 % (2-11); Neutrophils Absolute Auto 2.4 x10*3/uL (2.0-8.3); Neutrophils Percent Auto 43.3 % (45-73); Platelet Count 257 X10*3/uL (160-400); Red Blood Count 4.36 X10*6/uL (4.60-5.80); Red Cell Distribution Width 15.2 % (11.0-16.0); White Blood Count 5.4 X10*3/uL (4.8-10.8)
[2024-09-16 10:06] LABS: Alanine Aminotransferase 24 U/L (0-40); Albumin Level 4.4 g/dL (3.5-5.0); Alkaline Phosphatase 67 U/L (39-117); Anion Gap 14 (12-20); Aspartate Amino Transferase 34 U/L (5-37); Bilirubin Direct 0.1 mg/dL (0.0-0.5); Bilirubin Total 0.4 mg/dL (0.0-1.0); Blood Urea Nitrogen 21 mg/dL (9-16); Calcium 9.1 mg/dL (8.4-10.2); Carbon Dioxide 24 mmol/L (22-29); Chloride 108 mmol/L (96-108); Creatinine Clr Calc Pharmacy 156.9; Estimated Glomerular Filt Rate > 60; Ethanol < 10 mg/dL; Glucose Random 110 mg/dL (60-115); Potassium 3.7 mmol/L (3.3-5.1); Sodium 142 mmol/L (135-145); Total Protein 7.2 g/dL (6.5-8.0)
[2024-09-16 13:07] VITALS: BP 100/55; PULSE 54; RESP 16; TEMP 36.3; O2SAT 94
--- NOTE | 2024-09-16 14:11 | MHC.EDTECH ---
pt aware we need urine sample
[2024-09-16 16:18] VITALS: BP 105/52; PULSE 52; RESP 16; O2SAT 98
[2024-09-16 19:13] VITALS: BP 102/59; PULSE 60; RESP 16; TEMP 36.6; O2SAT 98
[2024-09-16 19:29] LABS: Amphetamine Screen Urine Not Detected (Not Detect); Barbiturates, Urine Not Detected (Not Detect); Benzodiazepines Screen Urine POSITIVE (Not Detect); Buprenorphine Scr Not Detected (Not Detect); Cannabinoid Screen Urine POSITIVE (Not Detect); Cocaine Screen Urine POSITIVE (Not Detect); Fentanyl, urine POSITIVE (Not Detect); Methadone Screen, Urine Positive (Not Detect); Opiate Screen Urine Not Detected (Not Detect); Oxycodone Screen Urine Not Detected (Not Detect); Phencyclidine Screen Urine Not Detected (Not Detect)
[2024-09-16 20:20] VITALS: BP 103/70; PULSE 67; RESP 16; O2SAT 98
[2024-09-16 22:19] VITALS: BP 115/64; PULSE 56; RESP 18; O2SAT 97
[2024-09-17 00:20] VITALS: BP 122/79; PULSE 68; RESP 16; TEMP 36.4; O2SAT 100
[2024-09-17] MEDS: Baclofen 20 MG TABLET PO ×2 (00:28→11:07)
[2024-09-17] MEDS: Docusate Sodium 100 MG CAPSULE PO ×2 (00:28→11:07)
[2024-09-17] MEDS: Prazosin HCL 1 MG CAPSULE 6 MG PO (00:28)
[2024-09-17] MEDS: chlorproMAZINE HCl 100 MG TABLET 200 MG PO (00:28)
[2024-09-17] MEDS: hydrOXYzine HCL 50 MG TABLET PO (00:36)
--- NOTE | 2024-09-17 01:17 | PC.NURSE ---
pt very tremulous and anxious, asking for medication for alcohol withdrawal, last drink 1.5 days ago. hx alcohol withdrawal seizures. provider aware, report given to YOHAN Grace, pt moved out of hallway into a room, sitter remains at bedside
[2024-09-17] MEDS: PHENobarbitaL sodium 130 MG/ML VIAL 400 MG IM (01:43)
[2024-09-17] MEDS: Acetaminophen 325 MG TABLET 975 MG PO (01:59)
[2024-09-17 04:53] VITALS: BP 100/56; PULSE 75; RESP 14; TEMP 36.4; O2SAT 94
--- NOTE | 2024-09-17 05:45 | PC.NURSE ---
phenobarb dosing and schedule corrected by pharmacy. pt vitals charted. pt arousable to name from sleep, answering questions clearly, lethargic. see CIWA score. MD Fernandes aware. per , reassess and commence next IM dose at 0800. sitter remains in place
--- NOTE | 2024-09-17 06:15 | PC.NURSE ---
spoke with pharmacy. will reschedule remaining two IM doses to 0800, 1100
[2024-09-17 08:30] VITALS: BP 119/76
[2024-09-17] MEDS: PARoxetine HCL 30 MG TABLET 60 MG PO (08:30)
[2024-09-17] MEDS: cloNIDine HCL 0.1 MG TABLET PO ×2 (08:30→13:24)
[2024-09-17] MEDS: Atorvastatin Calcium 10 MG TABLET PO (08:31)
[2024-09-17] MEDS: PHENobarbitaL sodium 130 MG/ML VIAL IM Q3Hx2 165 MG IM (08:31)
[2024-09-17] MEDS: Sennosides 8.6 MG TABLET 17.2 MG PO (08:31)
--- NOTE | 2024-09-17 10:25 | HE.PHANOTE ---
RE METHADONE VERIFICATION. LAST DOSE 185 MG GIVEN AT [facility] [place] [facility]. PT HAS HAD NUMEROUS DISCHARGES FROM THIS FACILITY AND [facility] SINCE 09/09/24 WITH DOCUMENTATION OF THE 185 MG DOSE BEING CONSISTENT.
[2024-09-17] MEDS: methADONE HCl 20 MG/2 ML ORAL.CONC 185 MG PO (11:02)
[2024-09-17] MEDS: Pramipexole Di-HCL 0.125 MG TABLET PO (11:07)
--- NOTE | 2024-09-17 11:26 | PC.NURSE ---
MATEUS 10, Dr. Santos aware. Instructed by Dr. Santos to hold Phenobarbital dose.
--- NOTE | 2024-09-17 12:01 | PC.NURSE ---
Notified by Admissions team that the patient has been accepted to [facility] in [place], [place]. Transportation being arranged, with an estimated departure time of 2pm.
--- NOTE | 2024-09-17 12:01 | MHC.CARE ---
Pt was accepted to [facility] for today 09/17/24 by Reji. The accepting doctor is Dr. Somers and the ETA is 2pm. The address is [address] [place] [address]. No nurse to nurse is required by the accepting facility. Pod RN and CARE team have been notified of placement.
--- NOTE | 2024-09-17 12:26 | PC.NURSE ---
ETA updated to 3:30pm today for estimated pickup time, per EMS transport services.
[2024-09-17 13:24] VITALS: BP 119/76
[2024-09-17 16:13] VITALS: BP 116/72; PULSE 74; RESP 16; TEMP 36.3; O2SAT 95
== END 2024-09-17 16:13 ==
PROVIDERS: Nurse Practitioner Family; Emergency Provider Emergency Medicine
DX: F33.3 Major depressive disorder, recurrent, severe with psychotic symptoms (principal); F43.10 Post-traumatic stress disorder, unspecified; R45.851 Suicidal ideations; F60.2 Antisocial personality disorder; F19.20 Other psychoactive substance dependence, uncomplicated; F14.20 Cocaine dependence, uncomplicated; F13.10 Sedative, hypnotic or anxiolytic abuse, uncomplicated; F11.20 Opioid dependence, uncomplicated; F17.210 Nicotine dependence, cigarettes, uncomplicated; Z79.899 Other long term (current) drug therapy
CPT/HCPCS: 36415; 80048; 80076; 80307; 85025; 96372; 99285; J2560; S9485

== ENCOUNTER 2024-09-30 09:14 | Emergency (ER) | payer OTHER, SELFPAY ==
[2024-09-30 09:19] VITALS: BP 106/64; PULSE 81; RESP 20; TEMP 35.9; O2SAT 96; BMI 32.2
[2024-09-30 09:38] VITALS: RESP 14
--- NOTE | 2024-09-30 09:41 | PC.NURSE ---
Pt comes to the ED today reporting SI with a plan but is unwilling to disclose the plan to staff. Patient is calm and cooperative, offering no complaints at this time, resting in bed, respirations even and unlabored, no apparent distress noted. patient aware of plan of care for medical clearance and CARE team billy
--- NOTE | 2024-09-30 09:44 | ED_ITS ---
HPI - Psych General Chief Complaint: Psychiatric Symptoms Stated Complaint: SI Time Seen by Provider: 09/30/24 09:43 Source: patient Mode of arrival: ambulatory Limitations: no limitations History of Present Illness ED Provider: AIDEE KAUFMAN PA-C HPI Narrative: 33 year old male with pmhx significant for PTSD, MDD, polysubstance use disorder, antisocial personality disorder presents to the ED today for evaluation of SI with plan. He does not wish to disclose this plan. Admits to cocaine use. Last use about two days ago. Denies any other illicit substance use. Denies ETOH abuse. Denies AH/VH/TH. His only complaint at present is diffuse body pain. Denies any known sick contacts. Related Data Home Medications ?Medication ?Instructions ?Recorded ?Confirmed methadone 10 mg/mL oral 160 mg PO DAILY 08/14/24 10/02/24 concentrate (Methadose) prazosin 2 mg capsule 6 mg PO BEDTIME 09/09/24 09/30/24 gabapentin 800 mg tablet 800 mg PO TID 09/30/24 09/30/24 quetiapine 100 mg tablet 100 mg PO BEDTIME 09/30/24 09/30/24 Previous Rx's ?Medication ?Instructions ?Recorded atorvastatin 10 mg tablet 10 mg PO DAILY 30 days #30 tabs 01/10/24 baclofen 20 mg tablet 20 mg PO BID 30 days #60 tabs 01/10/24 chlorpromazine 25 mg tablet 25 mg PO TID PRN mild agitation 30 01/10/24 days #90 tabs clonidine HCl 0.1 mg tablet 0.1 mg PO TID@0900,1300,1700 01/10/24 Anxiety 30 days #90 tabs nicotine (polacrilex) 2 mg buccal 2 mg PO Q2H PRN Nicotine Cravings 01/10/24 lozenge 30 days #108 ea nicotine 21 mg/24 hr daily 1 patch topical DAILY PRN nicotine 01/10/24 transdermal patch cravings 28 days #28 ea paroxetine HCl 30 mg tablet 60 mg (2 x 30 mg) PO DAILY 30 days 01/10/24 #60 tabs pramipexole 0.125 mg tablet 0.125 mg PO DAILY 30 days #30 tabs 01/10/24 Allergies Allergy/AdvReac Type Severity Reaction Status Date / Time amoxicillin Allergy Hives Verified 10/03/24 08:47 Penicillins [PCN] Allergy Hives Verified 10/03/24 08:47 seafood Allergy Difficulty Verified 10/03/24 08:47 Breathing Review of Systems 2 Review of Systems: Yes all other systems are reviewed and are negative [facility] Past Medical History Attestation statement: The following information was validated with the patient. Source: old records reviewed and nursing notes reviewed Medical History Polysubstance use disorder Opioid use disorder Depression Antisocial personality disorder Cocaine use disorder, moderate, dependence Benzodiazepine abuse MDD (major depressive disorder), recurrent, severe, with psychosis Alcohol use disorder Mood disorder PTSD (post-traumatic stress disorder) Polysubstance (including opioids) dependence, daily use Social History Social History Household Members: None Household Members Other:: homeless Housing: Homeless Do you presently have visiting nurse or other home services: No Unable to assess alcohol history related to: Unknown Alcohol intake: current Alcohol intake frequency: a few times a month Alcohol type: hard liquor Comment: Pt ambulates independently Patient Tobacco Use Status: Current everyday Tobacco user Tobacco use type: Cigarette Cigarette Packs Per Day: 1 Cigarettes Per Day: 5 Years Smoked: 20 e-Cigarette/Vaping Use: Never Used Second Hand Smoke Exposure: No Substance Use Type: Crack/Cocaine Advance Directives: No Advance Directives Information Provided: Yes service: No Current occupational status: unemployed Sexual orientation: Straight/Heterosexual Physical Exam 2 Vital Signs: Vital Signs: Last Vital Signs Temp 98.6 F 10/01/24 08:42 Pulse 84 10/01/24 08:42 Resp 16 10/01/24 08:42 BP 142/74 H 10/01/24 08:42 Pulse Ox 97 10/01/24 08:42 O2 Del Method Room Air 10/01/24 08:42 BMI result Body Mass Index 32.2 vital signs stable General: unkempt Skin: Warm, dry, intact. No rashes or lesions. Head: Normocephalic, atraumatic. EENT: Hearing is intact b/l. Conjunctiva clear. Pupils constricted b/l. EOM intact. Moist mucous membranes.?Abrasion to nasal bridge. Neck: Supple without LAD Cardiac: Chest wall symmetric. RRR. Lungs: Normal respiratory effort without accessory muscle use. CTA bilaterally. Back: No midline spinous or paraspinal tenderness. No step off deformity. Ext: Upper and lower extremities atraumatic, without tenderness, deformity, swelling or erythema Neuro: AOx3. Normal speech. CN 2-12 grossly intact. No saddle anesthesia. Sensation intact to light touch. NV intact distally. Ambulating with steady gait. Psych: Appropriate mood and affect. Responds appropriately to questions. Course Course Course Narrative: 1123 -- CBC without leukocytosis or left shift. Chronic normocytic anemia, stable when compared to priors. Chemistry without acute electrolyte abnormality requiring intervention. BUN slightly elevated to 21, with normal creatinine. Random glucose 123. AST slightly elevated to 64. Liver enzymes otherwise WNL. Total CK 1104. Upward trending from CK of 382 on 09/09/2024. patient has hx of rhabdo with ck levels >9000. > storage battery charger informed of results. Patient has been pulled from the [facility] pod for further evaluation and treatment including IV fluids. 2L IVF ordered w/ plan to repeat ck levels. still awaiting UA/UDS. > troponin level and ekg ordered > patient overall well appearing, hemodynamically stable at this time 1417 -- repeat CPK improved to 779. Still waiting on UA. I discussed with my attending dr. lange. Will order 2 L LR with repeat CPK. > patient now reporting to staff internist office based only that he missed his methadone. He was last dosed on 09/28/2024. He is typically dosed with 160 mg of methadone. RN will be contacting [facility] to confirm. > troponin undetectable. EKG showing normal sinus rhythm with a rate of 65 beats per minute, no acute ischemic changes or ST elevations. Will continue to monitor. > anticipate transfer back to [facility] pod if CK continues to improve. 1451 -- RN spoke with [facility] [place]. Confirmed last dose of 160 mg on 09/28/2024. Methadone dose has been ordered. 1759 -- repeat cpk improved to 653. elevation likely secondary to cocaine use. rhabdo unlikely. he does not meet criteria for medical admission. will enouraged oral hydration. he is medically cleared at this time. patient transfered back to pod. awaiting CARE team eval. physician observation initiated. Reevaluation(s) Reevaluation #1: 10/01/2024 Patient was seen by crisis again this morning he wants to go home he does not want any help. Per crisis team can be discharged Time: : Reevaluation #2: Time: : Date: 10/03/24 Provider: Kevin Lange MD Physician observation ended at 0:921. Patient has been cleared for discharge by the CARE team. Will follow up as an outpatient. Medications Administered Discontinued Medications Generic Name Dose Route Start Last Admin Trade Name Archie PRN Reason Stop Dose Admin Atorvastatin Calcium 10 mg 10/01/24 09:00 10/01/24 08:34 Atorvastatin Calcium 10 Mg Tablet PO 10 mg DAILY BESSIE Administration Baclofen 20 mg 10/01/24 09:00 10/01/24 08:34 Baclofen 20 Mg Tablet PO 20 mg BID BESSIE Administration Clonidine HCl 0.1 mg 10/01/24 09:00 10/01/24 08:33 Clonidine Hcl 0.1 Mg Tablet PO 0.1 mg TID@0900,1300,1700 BESSIE Administration Protocol Clonidine HCl 0.1 mg 10/01/24 00:56 10/01/24 01:12 Clonidine Hcl 0.1 Mg Tablet PO 10/01/24 00:57 0.1 mg ONCE ONE Administration Protocol Gabapentin 800 mg 10/01/24 09:00 10/01/24 08:33 Gabapentin 400 Mg Capsule PO 800 mg TID BESSIE Administration Sodium Chloride 1,000 mls @ 999 mls/hr 09/30/24 11:30 09/30/24 14:24 Ns IV 09/30/24 12:30 Infused .Q1H1M BESSIE Infusion Sodium Chloride 1,000 mls @ 999 mls/hr 09/30/24 11:30 09/30/24 14:24 Ns IV 09/30/24 12:30 Infused .Q1H1M BESSIE Infusion Lactated Ringer's 1,000 mls @ 999 mls/hr 09/30/24 14:30 09/30/24 15:41 Lr IV 09/30/24 15:30 Infused .Q1H1M BESSIE Infusion Lactated Ringer's 1,000 mls @ 999 mls/hr 09/30/24 14:30 09/30/24 15:41 Lr IV 09/30/24 15:30 Infused .Q1H1M BESSIE Infusion Methadone HCl 160 mg 09/30/24 14:51 09/30/24 15:30 Methadone Hcl 20 Mg/2 Ml Oral.Conc PO 09/30/24 14:52 160 mg ONCE ONE Administration Methadone HCl 160 mg 10/01/24 09:00 10/01/24 08:33 Methadone Hcl 20 Mg/2 Ml Oral.Conc PO 160 mg DAILY BESSIE Administration Nicotine Polacrilex 2 mg 10/01/24 00:00 10/01/24 01:14 Nicotine Polacrilex Lozenge 2 Mg Lozenge BUCCAL 2 mg Q2H PRN Administration Nicotine Cravings Paroxetine HCl 60 mg 10/01/24 09:00 10/01/24 08:33 Paroxetine Hcl 30 Mg Tablet PO 60 mg DAILY BESSIE Administration Pramipexole Dihydrochloride 0.125 mg 10/01/24 09:00 10/01/24 08:38 Pramipexole Di-Hcl 0.125 Mg Tablet PO 0.125 mg DAILY BESSIE Administration Quetiapine Fumarate 100 mg 10/01/24 00:56 10/01/24 01:12 Quetiapine Fumarate 100 Mg Tablet PO 10/01/24 00:57 100 mg ONCE ONE Administration Medical Decision Making Medical Decision Making [facility] Narrative: 33 year old male with pmhx signifiant for PTSD, MDD, polysubstance use disorder, antisocial personality disorder presents to the ED today for evaluation of SI with plan. Vital signs stable. Differential diagnosis includes anemia, electrolyte abnormality, mood disorder, anxiety, depression, SI, polysubstance abuse, viral syndrome, rhabdomyolysis Presentation not consistent with acute organic causes to include delirium, dementia or drug induced disorders (acute ingestions or withdrawal; no evidence of toxidrome).? Given the H&P, I suspect this patient is suicidal and will require observation. Will consult care team to evaluate the patient. Will also obtain labs for medical clearance. Plan: labs, cpk, EKG, ASA/APAP levels, ETOH level, UDS, care team consultation, reassessment Differential Diagnosis Differential Diagnoses: The differential diagnosis associated with the presentation includes As above Admission/Observation Not indicated Lab Data [facility] Lab Attestation statement: I reviewed the patient's lab results. As above 09/30/24 10:01 09/30/24 10:01 Labs: Lab Results 09/30/24 09/30/24 09/30/24 Range/Units 10:01 11:28 11:38 WBC 6.2 (4.8-10.8) X10*3/uL RBC 4.61 (4.60-5.80) X10*6/uL Hgb 12.6 L (14.0-18.0) g/dl Hct 39.7 L (42.0-52.0) % MCV 86.1 (80.0-98.0) fL MCH 27.3 (27.0-33.0) pg MCHC 31.7 (31.0-36.0) g/dl RDW 14.8 (11.0-16.0) % Plt Count 251 (160-400) X10*3/uL MPV 10.7 (9.4-12.4) fL Immature Gran % (Auto) 0.3 (0.0-0.4) % Neut % (Auto) 45.4 (45-73) % Lymph % (Auto) 33.8 (20-40) % [place] % (Auto) 13.4 H (2-11) % Eos % (Auto) 6.0 H (0-4) % Baso % (Auto) 1.1 (0-2) % Lymph # (Auto) 2.1 (1.2-4.9) X10*3/uL [place] # (Auto) 0.8 (0.1-1.2) X10*3/uL Eos # (Auto) 0.4 (0.0-0.4) X10*3/uL Baso # (Auto) 0.1 (0.0-0.2) X10*3/uL Abs Immat Gran (auto) 0.02 (0.00-0.03) X10*3/uL Absolute Neuts (auto) 2.8 (2.0-8.3) x10*3/uL Absolute Nucleated RBC 0.000 (0.0-0.012) X10*3/uL Nucleated RBC % (auto) 0.0 (0.0-0.2) /100WBC Sodium 141 (135-145) mmol/L Potassium 3.6 (3.3-5.1) mmol/L Chloride 104 (96-108) mmol/L Carbon Dioxide 26 (22-29) mmol/L Anion Gap 15 (12-20) BUN 21 H (9-16) mg/dL Creatinine 0.72 (0.5-1.4) mg/dL Estim Creat Clear Calc 174.4 Estimated GFR > 60 Random Glucose 123 H (60-115) mg/dL Calcium 9.2 (8.4-10.2) mg/dL Total Bilirubin 0.3 (0.0-1.0) mg/dL AST 64 H (5-37) U/L ALT 36 (0-40) U/L Alkaline Phosphatase 71 (39-117) U/L Total Creatine Kinase 1104 H (38-174) U/L Troponin I High Sens < 2.7 < 2.7 (<3.5-35.0) ng/L Total Protein 7.6 (6.5-8.0) g/dL Albumin 4.5 (3.5-5.0) g/dL Urine Color Urine Appearance Urine pH (5.0-9.0) Ur Specific [place] (1.005-1.025) Urine Protein (Neg-Trace) mg/dL Urine Glucose (UA) (Negative) mg/dL Urine Ketones (Negative) mg/dL Urine Blood (Negative) Urine Nitrite (Negative) Ur Leukocyte Esterase (Negative) Urine Opiates Screen (Not Detect) Ur Buprenorphine Scrn (Not Detect) ng/mL Ur Oxycodone Screen (Not Detect) ng/mL Urine Methadone Screen (Not Detect) ng/mL Urine Fentanyl Screen (Not Detect) Ur Barbiturates Screen (Not Detect) Ur Phencyclidine Scrn (Not Detect) Ur Amphetamines Screen (Not Detect) U Benzodiazepines Scrn (Not Detect) Urine Cocaine Screen (Not Detect) U Marijuana (THC) Screen (Not Detect) Ethyl Alcohol < 10 mg/dL Influenza Type A (PCR) NEGATIVE (Negative) Influenza Type B (PCR) NEGATIVE (Negative) RSV RNA Qual (PCR) NEGATIVE (Negative) SARS-CoV-2 RNA (RT-PCR) NEGATIVE (Negative) 09/30/24 09/30/24 10/01/24 Range/Units 13:40 17:59 00:15 WBC (4.8-10.8) X10*3/uL RBC (4.60-5.80) X10*6/uL Hgb (14.0-18.0) g/dl Hct (42.0-52.0) % MCV (80.0-98.0) fL MCH (27.0-33.0) pg MCHC (31.0-36.0) g/dl RDW (11.0-16.0) % Plt Count (160-400) X10*3/uL MPV (9.4-12.4) fL Immature Gran % (Auto) (0.0-0.4) % Neut % (Auto) (45-73) % Lymph % (Auto) (20-40) % [place] % (Auto) (2-11) % Eos % (Auto) (0-4) % Baso % (Auto) (0-2) % Lymph # (Auto) (1.2-4.9) X10*3/uL [place] # (Auto) (0.1-1.2) X10*3/uL Eos # (Auto) (0.0-0.4) X10*3/uL Baso # (Auto) (0.0-0.2) X10*3/uL Abs Immat Gran (auto) (0.00-0.03) X10*3/uL Absolute Neuts (auto) (2.0-8.3) x10*3/uL Absolute Nucleated RBC (0.0-0.012) X10*3/uL Nucleated RBC % (auto) (0.0-0.2) /100WBC Sodium (135-145) mmol/L Potassium (3.3-5.1) mmol/L Chloride (96-108) mmol/L Carbon Dioxide (22-29) mmol/L Anion Gap (12-20) BUN (9-16) mg/dL Creatinine (0.5-1.4) mg/dL Estim Creat Clear Calc Estimated GFR Random Glucose (60-115) mg/dL Calcium (8.4-10.2) mg/dL Total Bilirubin (0.0-1.0) mg/dL AST (5-37) U/L ALT (0-40) U/L Alkaline Phosphatase (39-117) U/L Total Creatine Kinase 779 H 653 H (38-174) U/L Troponin I High Sens (<3.5-35.0) ng/L Total Protein (6.5-8.0) g/dL Albumin (3.5-5.0) g/dL Urine Color Yellow Urine Appearance Clear Urine pH 6.5 (5.0-9.0) Ur Specific [place] >= 1.030 H (1.005-1.025) Urine Protein Trace (Neg-Trace) mg/dL Urine Glucose (UA) Negative (Negative) mg/dL Urine Ketones Negative (Negative) mg/dL Urine Blood Negative (Negative) Urine Nitrite Negative (Negative) Ur Leukocyte Esterase Negative (Negative) Urine Opiates Screen POSITIVE H (Not Detect) Ur Buprenorphine Scrn Not Detected (Not Detect) ng/mL Ur Oxycodone Screen Not Detected (Not Detect) ng/mL Urine Methadone Screen Positive H (Not Detect) ng/mL Urine Fentanyl Screen POSITIVE H (Not Detect) Ur Barbiturates Screen POSITIVE H (Not Detect) Ur Phencyclidine Scrn Not Detected (Not Detect) Ur Amphetamines Screen Not Detected (Not Detect) U Benzodiazepines Scrn POSITIVE H (Not Detect) Urine Cocaine Screen POSITIVE H (Not Detect) U Marijuana (THC) Screen POSITIVE H (Not Detect) Ethyl Alcohol mg/dL Influenza Type A (PCR) (Negative) Influenza Type B (PCR) (Negative) RSV RNA Qual (PCR) (Negative) SARS-CoV-2 RNA (RT-PCR) (Negative) 10/01/24 Range/Units 08:15 WBC (4.8-10.8) X10*3/uL RBC (4.60-5.80) X10*6/uL Hgb (14.0-18.0) g/dl Hct (42.0-52.0) % MCV (80.0-98.0) fL MCH (27.0-33.0) pg MCHC (31.0-36.0) g/dl RDW (11.0-16.0) % Plt Count (160-400) X10*3/uL MPV (9.4-12.4) fL Immature Gran % (Auto) (0.0-0.4) % Neut % (Auto) (45-73) % Lymph % (Auto) (20-40) % [place] % (Auto) (2-11) % Eos % (Auto) (0-4) % Baso % (Auto) (0-2) % Lymph # (Auto) (1.2-4.9) X10*3/uL [place] # (Auto) (0.1-1.2) X10*3/uL Eos # (Auto) (0.0-0.4) X10*3/uL Baso # (Auto) (0.0-0.2) X10*3/uL Abs Immat Gran (auto) (0.00-0.03) X10*3/uL Absolute Neuts (auto) (2.0-8.3) x10*3/uL Absolute Nucleated RBC (0.0-0.012) X10*3/uL Nucleated RBC % (auto) (0.0-0.2) /100WBC Sodium (135-145) mmol/L Potassium (3.3-5.1) mmol/L Chloride (96-108) mmol/L Carbon Dioxide (22-29) mmol/L Anion Gap (12-20) BUN (9-16) mg/dL Creatinine (0.5-1.4) mg/dL Estim Creat Clear Calc Estimated GFR Random Glucose (60-115) mg/dL Calcium (8.4-10.2) mg/dL Total Bilirubin (0.0-1.0) mg/dL AST (5-37) U/L ALT (0-40) U/L Alkaline Phosphatase (39-117) U/L Total Creatine Kinase 386 H (38-174) U/L Troponin I High Sens (<3.5-35.0) ng/L Total Protein (6.5-8.0) g/dL Albumin (3.5-5.0) g/dL Urine Color Urine Appearance Urine pH (5.0-9.0) Ur Specific [place] (1.005-1.025) Urine Protein (Neg-Trace) mg/dL Urine Glucose (UA) (Negative) mg/dL Urine Ketones (Negative) mg/dL Urine Blood (Negative) Urine Nitrite (Negative) Ur Leukocyte Esterase (Negative) Urine Opiates Screen (Not Detect) Ur Buprenorphine Scrn (Not Detect) ng/mL Ur Oxycodone Screen (Not Detect) ng/mL Urine Methadone Screen (Not Detect) ng/mL Urine Fentanyl Screen (Not Detect) Ur Barbiturates Screen (Not Detect) Ur Phencyclidine Scrn (Not Detect) Ur Amphetamines Screen (Not Detect) U Benzodiazepines Scrn (Not Detect) Urine Cocaine Screen (Not Detect) U Marijuana (THC) Screen (Not Detect) Ethyl Alcohol mg/dL Influenza Type A (PCR) (Negative) Influenza Type B (PCR) (Negative) RSV RNA Qual (PCR) (Negative) SARS-CoV-2 RNA (RT-PCR) (Negative) External Record Review External record reviewed: Inpatient record Chronic Conditions Patient?s care impacted by: Other (Polysubstance abuse) Social Determinants Patient?s care significantly limited by Social Determinants of Health including: Other Social Determinant of Health Critical Care Time Critical Care Time Critical Care Time: No Discharge Plan Discharge Clinical Impression: Suicidal ideation, Cocaine abuse, Depression Patient Disposition: Home, Self-Care Instructions: Depression (DC) Prescriptions: No Action chlorpromazine 25 mg Tablet 25 mg PO TID PRN (Reason: mild agitation) 30 Days Qty: 90 1RF clonidine HCl 0.1 mg tablet 0.1 mg PO TID@0900,1300,1700 30 Days Qty: 90 1RF atorvastatin 10 mg tablet 10 mg PO DAILY 30 Days Qty: 30 1RF baclofen 20 mg tablet 20 mg PO BID 30 Days Qty: 60 1RF paroxetine HCl 30 mg tablet 60 mg PO DAILY 30 Days Qty: 60 1RF nicotine 21 mg/24 hr patch 24 hour 1 patch topical DAILY PRN (Reason: nicotine cravings) 28 Days Qty: 28 0RF pramipexole 0.125 mg tablet 0.125 mg PO DAILY 30 Days Qty: 30 1RF nicotine (polacrilex) 2 mg lozenge 2 mg PO Q2H PRN (Reason: Nicotine Cravings) 30 Days Qty: 108 0RF Rx Instructions: DNE 20/DAY methadone [Methadose] 10 mg/mL concentrate 160 mg PO DAILY Rx Instructions: Partial Fill upon patient request. prazosin 2 mg capsule 6 mg PO BEDTIME quetiapine 100 mg tablet 100 mg PO BEDTIME gabapentin 800 mg Tablet 800 mg PO TID Interventions: [place]-Suicide Risk Severity Scale Last Done: 10/01/24 07:42 ED Discharge Assessment Last Done: 10/01/24 08:42 Discharge Date/Time: 10/01/24 09:03 Print Language: Bel[place]ian
[2024-09-30 10:07] LABS: MANUAL DIFF FLAG NO
[2024-09-30 10:08] LABS: Basophils Absolute Auto 0.1 X10*3/uL (0.0-0.2); Basophils Percent Auto 1.1 % (0-2); Eosinophils Absolute Auto 0.4 X10*3/uL (0.0-0.4); Hematocrit 39.7 % (42.0-52.0); Hemoglobin 12.6 g/dl (14.0-18.0); Imm Gran Abs Auto 0.02 X10*3/uL (0.00-0.03); Imm Gran Pct Auto 0.3 % (0.0-0.4); Lymphocytes Absolute Auto 2.1 X10*3/uL (1.2-4.9); Lymphocytes Percent Auto 33.8 % (20-40); Mean Corpuscular HGB Conc 31.7 g/dl (31.0-36.0); Mean Corpuscular Hemoglobin 27.3 pg (27.0-33.0); Mean Corpuscular Volume 86.1 fL (80.0-98.0); Mean Platelet Volume 10.7 fL (9.4-12.4); Monocytes Absolute Auto 0.8 X10*3/uL (0.1-1.2); Monocytes Percent Auto 13.4 % (2-11); Neutrophils Absolute Auto 2.8 x10*3/uL (2.0-8.3); Neutrophils Percent Auto 45.4 % (45-73); Platelet Count 251 X10*3/uL (160-400); Red Blood Count 4.61 X10*6/uL (4.60-5.80); Red Cell Distribution Width 14.8 % (11.0-16.0); White Blood Count 6.2 X10*3/uL (4.8-10.8)
[2024-09-30 10:23] LABS: Alanine Aminotransferase 36 U/L (0-40); Albumin Level 4.5 g/dL (3.5-5.0); Alkaline Phosphatase 71 U/L (39-117); Anion Gap 15 (12-20); Aspartate Amino Transferase 64 U/L (5-37); Bilirubin Total 0.3 mg/dL (0.0-1.0); Blood Urea Nitrogen 21 mg/dL (9-16); Calcium 9.2 mg/dL (8.4-10.2); Carbon Dioxide 26 mmol/L (22-29); Chloride 104 mmol/L (96-108); Creatinine Clr Calc Pharmacy 174.4; Estimated Glomerular Filt Rate > 60; Ethanol < 10 mg/dL; Glucose Random 123 mg/dL (60-115); Potassium 3.6 mmol/L (3.3-5.1); Sodium 141 mmol/L (135-145); Total Protein 7.6 g/dL (6.5-8.0)
--- OUTSIDE RECORDS SUMMARY | 2024-09-30 10:44 | XMS_ITS | Clinical Summary ---
Author Organization [facility] Address [address] [place] [address] Phone Care Team Providers Care Marine Engineer Cpvec Name Role Phone Physician, Pcp Unknown Primary Care Provider Rekha vailable Allergies Active Allergy Reactions Criticality Noted Date Comments Amoxicillin Hives 08/28/2024 Fish Derived Hives 08/28/2024 Penicillins Hives 08/28/2024 Medications baclofen (LIORESAL) 20 mg tablet Take 1 tablet (20 mg total) by mouth 3 (three) times a day. 5 Active chlorproMAZINE (THORAZINE) 25 mg tablet Take 1 tablet (25 mg total) by mouth 2 (two) times a day. 5 Active gabapentin (NEURONTIN) 800 mg tablet Take 1 tablet (800 mg total) by mouth 3 (three) times a day. 4 Active hydrOXYzine HCL (ATARAX) 50 mg tablet Take 1 tablet (50 mg total) by mouth every 8 (eight) hours if needed for anxiety. 4 Active naproxen (NAPROSYN) 500 mg tablet Take 1 tablet (500 mg total) by mouth 2 (two) times a day with meals. Active methadone (DOLOPHINE) 10 mg tabletIndicatio ns:Opioid abuse (CMS/HCC V24, CMS/HCC V28) Take 18.5 tablets (185 mg total) by mouth 1 (one) time each day. Max Daily Amount: 185 mg 5 Active nicotine (NICODERM CQ) 21 mg/[address] 1 patch on the skin 1 (one) time each day. 30 each 5 Active nicotine polacrilex (NICORETTE) [address] 1 each (4 mg total) into mouth between cheek and gum every 2 (two) hours if needed for smoking cessation. 100 each 5 Active prazosin (MINIPRESS) 2 mg capsule Take 1 capsule (2 mg total) by mouth at bedtime. 30 each 5 Active PARoxetine (PAXIL) 30 mg tablet Take 1 tablet (30 mg total) by mouth at bedtime. 30 each 5 Active cloNIDine (CATAPRES) 0.1 mg tablet Take 1 tablet (0.1 mg total) by mouth 2 (two) times a day. 60 each 5 Active pramipexole (MIRAPEX) 0.125 mg tabletIndicatio ns:restless leg syndrome Take 1 tablet (0.125 mg total) by mouth 3 (three) times a day. 90 each 5 Active naloxone (NARCAN) 4 mg/0.1 mL nasal sprayIndication s:opioid overdose,opioid -induced respiratory depression Administer 1 each (4 mg total) into affected nostril(s) if needed for opioid reversal or respiratory depression. Give 4 mg (1 spray) into one nostril. May repeat every 2-3 minutes if needed, alternating nostrils, until medical assistance becomes available. 2 each 5 08/31/19 26 Active acetaminophen (TYLENOL) 500 mg tablet Take 2 tablets (1,000 mg total) by mouth 3 (three) times a day for 10 days. 30 tablet 5 09/10/19 25 Active Problems Problem Noted Date Diagnosed Date Non-traumatic rhabdomyolysis 08/29/2024 Resolved Problems Problem Noted Date Diagnosed Date Resolved Date Rhabdomyolysis 08/29/2024 08/30/2024 Encounters Date Type Department Care Team Description 08/28/2024 11:18 PM EDT - 08/30/2024 3:01 PM EDT Hospital Encounter [facility] [address] [place] [id number] Kolby Leon MD Seralathan, Manikandan, MD Non-traumatic rhabdomyolysis (Primary Dx); Suicidal ideation; Cocaine abuse ([facility] V24, [facility] V28); Opioid abuse ([facility] V24, [facility] V28) [facility]charge [facility]: [facility] from Last 3 Months Medical History Medical History Date Comments Substance abuse ([facility] V24, [facility] V28) Social History Tobacco Use Types Packs/Day Years [...] 2023-2 5 season) 2024 01/11/2022 Influenza Vaccine (Season Ended) 2025 Social Influencers of Health Screening 08/29/2025 08/29/2024 [...] age to complete this topic Meningococcal B Vaccine Aged Out No l onger eligible based on patient's age to complete [...] is included. WBC 4.1(L) 4.8 - 10.8 K/[facility] LAB HEMETOLOGY METHOD 08/30/2024 7:47 AM [facility] RBC 3.30(L) 4.50 - 5.50 M/mcL LAB HEMETOLOGY METHOD 08/30/2024 7:47 AM [facility] Hemoglobin 9.1(L) 13.5 - 17.5 g/dL LAB HEMETOLOGY METHOD 08/30/2024 7:47 AM [facility] Hematocrit 29.8(L) 42.0 - 54.0 % LAB HEMETOLOGY METHOD 08/30/2024 7:47 AM [facility] MCV 89.2 79.0 - 98.0 FL LAB HEMETOLOGY METHOD 08/30/2024 7:47 AM [facility] MCH 27.2 27.0 - 32.0 pcg LAB HEMETOLOGY METHOD 08/30/2024 7:47 AM [facility] MCHC 30.5(L) 32.0 - 37.0 g/dL LAB HEMETOLOGY METHOD 08/30/2024 7:47 AM [facility] RDW 16.1(H) 11.0 - 15.0 % LAB HEMETOLOGY METHOD 08/30/2024 7:47 AM [facility] Platelets 170 130 - 400 K/mcL LAB HEMETOLOGY METHOD 08/30/2024 7:47 AM [facility] MPV 11.1(H) 7.0 - 11.0 FL LAB HEMETOLOGY METHOD 08/30/2024 7:47 AM [facility] NRBC 0.0 <1.0 % LAB HEMETOLOGY METHOD 08/30/2024 7:47 AM [facility] NRBC Absolute 0.00 <0.10 K/mcL LAB HEMETOLOGY METHOD 08/30/2024 7:47 AM [facility] Neutrophils Relative 26.2 % LAB HEMETOLOGY METHOD 08/30/2024 7:47 AM [facility] Lymphocytes Relative 52.3 % LAB HEMETOLOGY METHOD 08/30/2024 7:47 AM [facility] Monocytes Relative 10.9 % LAB HEMETOLOGY METHOD 08/30/2024 7:47 AM [facility] Eosinophils Relative 9.2 % LAB HEMETOLOGY METHOD 08/30/2024 7:47 AM [facility] Basophils Relative 1.2 % LAB HEMETOLOGY METHOD 08/30/2024 7:47 AM [facility] Immature Granulocytes Relative 0.2 % LAB HEMETOLOGY METHOD 08/30/2024 7:47 AM [facility] Neutrophils Absolute 1.08(L) 1.50 - 7.00 K/mcL LAB HEMETOLOGY METHOD 08/30/2024 7:47 AM [facility] Lymphocytes Absolute 2.16 1.00 - 5.00 K/mcL LAB HEMETOLOGY METHOD 08/30/2024 7:47 AM [facility] Monocytes Absolute 0.45 0.20 - 1.00 K/mcL LAB HEMETOLOGY METHOD 08/30/2024 7:47 AM [facility] Eosinophils Absolute 0.38 0.00 - 0.50 K/mcL LAB HEMETOLOGY METHOD 08/30/2024 7:47 AM [facility] Basophils Absolute 0.05 0.00 - 0.20 K/mcL LAB HEMETOLOGY METHOD 08/30/2024 7:47 AM [facility] Immature Granulocytes Absolute 0.01 0.00 - 0.03 K/mcL LAB HEMETOLOGY METHOD 08/30/2024 7:47 AM [facility] Blood Venous blood specimen / Unknown Venipuncture / Unknown 08/30/2024 7:19 AM EDT 08/30/2024 7:39 AM EDT us Audrey ANDERSON LAB BLOOD ORDERABLES Final Result Performing Organization Address [facility] Co de Phone Number [facility] [address] [place] [address], [place] [phone] * Magnesium (08/30/2024 7:19 AM EDT) [facility] Magnesium 2.0 1.9 - 2.6 mg/dL LAB CHEMISTRY METHOD 08/30/2024 8:35 AM EDT [facility] Blood Venous blood specimen / Unknown Venipuncture / Unknown 08/30/2024 7:19 AM EDT 08/30/2024 7:38 AM EDT us Audrey ANDERSON LAB BLOOD ORDERABLES Final Result Performing Organization Address [facility] de Phone Number [facility] [address] [place] [address], [place] [phone] * (ABNORMAL) Creatine kinase (08/30/2024 7:19 AM EDT) Only the most recent of3 resultswithin the time period is included. [facility] Total CK 1,758(H) 22 - 269 unit/L LAB CHEMISTRY METHOD 08/30/2024 8:35 AM EDT [facility] Blood Venous blood specimen / Unknown Venipuncture / Unknown 08/30/2024 7:19 AM EDT 08/30/2024 7:38 AM EDT us Audrey ANDERSON LAB BLOOD ORDERABLES Final Result Performing Organization Address [facility] Co de Phone Number [facility] [address] [place] [address], [place] [phone] * (ABNORMAL) Basic metabolic panel (08/30/2024 7:19 AM EDT) Sodium 139 133 - 145 mmol/L LAB CHEMISTRY METHOD 08/30/2024 8:35 AM [facility] Potassium 4.3 3.5 - 5.5 mmol/L LAB CHEMISTRY METHOD 08/30/2024 8:35 AM [facility] Comment:Hemolysis present Chloride 110 96 - 110 mmol/L LAB CHEMISTRY METHOD 08/30/2024 8:35 AM [facility] CO2 25 21 - 32 mmol/L LAB CHEMISTRY METHOD 08/30/2024 8:35 AM [facility] Anion Gap 4 3 - 11 LAB CHEMISTRY METHOD 08/30/2024 8:35 AM [facility] Glucose 106(H) 70 - 100 mg/dL LAB CHEMISTRY METHOD 08/30/2024 8:35 AM [facility] BUN 16 5 - 25 mg/dL LAB CHEMISTRY METHOD 08/30/2024 8:35 AM [facility] Creatinine 0.66(L) 0.70 - 1.30 mg/dL LAB CHEMISTRY METHOD 08/30/2024 8:35 AM [facility] eGFR 127 >=60 mL/min/1. 73m2 LAB CHEMISTRY METHOD 08/30/2024 8:35 AM [facility] Comment:Calculation based on the??Chronic Kidney Disease Epidemiology Collaboration (CKD-EPI) equation refit??without adjustment for race. BUN/Creatinine Ratio 24.2 LAB CHEMISTRY METHOD 08/30/2024 8:35 AM [facility] Calcium 8.0(L) 8.5 - 10.5 mg/dL LAB CHEMISTRY METHOD 08/30/2024 8:35 AM [facility] Blood Venous blood specimen / Unknown Venipuncture / Unknown 08/30/2024 7:19 AM EDT 08/30/2024 7:38 AM EDT Audrey ANDERSON LAB BLOOD ORDERABLES Final Result [facility] [address] [place] [address], * ECG-Annotated (08/30/2024) Provider Onbase ECG ORDERABLES Final Result * (ABNORMAL) Urinalysis with reflex microscopic and culture (08/29/2024 8:30 AM EDT) Specific Cook Urine 1.032(H) 1.003 - 1.030 LAB URINALYSIS - AUTOMATED METHOD 08/29/2024 8:43 AM [facility] pH, Urine 6.0 5.0 - 8.0 pH LAB URINALYSIS - AUTOMATED METHOD 08/29/2024 8:43 AM [facility] Leukocytes, Urine Negative Negative LAB URINALYSIS - AUTOMATED METHOD 08/29/2024 8:43 AM [facility] Nitrite, Urine Negative Negative LAB URINALYSIS - AUTOMATED METHOD 08/29/2024 8:43 AM [facility] Protein, Urine Trace <=Trace mg/dL LAB URINALYSIS - AUTOMATED METHOD 08/29/2024 8:43 AM [facility] Glucose, Urine Negative Negative mg/dL LAB URINALYSIS - AUTOMATED METHOD 08/29/2024 8:43 AM [facility] Ketones, Urine 15(A) Negative mg/dL LAB URINALYSIS - AUTOMATED METHOD 08/29/2024 8:43 AM [facility] Urobilinogen, Urine 1.0 0.2 - 1.0 mg/dL LAB URINALYSIS - AUTOMATED METHOD 08/29/2024 8:43 AM [facility] Bilirubin, Urine Negative Negative LAB URINALYSIS - AUTOMATED METHOD 08/29/2024 8:43 AM EDT [facility] Blood, Urine Negative Negative LAB URINALYSIS - AUTOMATED METHOD 08/29/2024 8:43 AM EDT [facility] Urine Urine specimen obtained by clean catch procedure / Unknown Non-blood Collection / Unknown 08/29/2024 8:30 AM EDT 08/29/2024 8:38 AM EDT [facility] LAB URINE ORDERABLES Final Resul t Performing Organization Address [facility] Co de Phone Number [facility] [address] [place] [address], [place] [phone] * Pathak urine culture tube (08/29/2024 8:30 AM EDT) Extra Tube Hold for add-ons. 08/29/2024 10:02 AM EDT [facility] Comment:Auto resulted. Urine Urine specimen obtained by clean catch procedure / Unknown Non-blood Collection / Unknown 08/29/2024 8:30 AM EDT 08/29/2024 8:38 AM EDT [facility] LAB URINE ORDERABLES Final Resul t Performing Organization Address [facility] de Phone Number [facility] [address] [place] [address], [place] [phone] * (ABNORMAL) Drug abuse screen 8a panel, urine (08/29/2024 8:30 AM EDT) Amphetamine Screen, Ur Negative Negative LAB CHEMISTRY METHOD 5 9:18 AM EDT [facility] Comment:Certain OTC medicati ons containing ephedrine, phenylephrine, pseudoephedrine and phenylpropanolamine can cause false positive results. Barbiturate Screen, Ur Negative Negative LAB CHEMISTRY METHOD 5 9:18 AM EDT [facility] Benzodiazepine Screen, Ur Positive(A ) Negative LAB CHEMISTRY METHOD 5 9:18 AM EDT [facility] Cocaine Screen, Ur Positive(A ) Negative LAB CHEMISTRY METHOD 5 9:18 AM EDT [facility] Opiate Screen, Ur Negative Negative LAB CHEMISTRY METHOD 5 9:18 AM T [facility] Cannabinoid (THC) Screen, Ur Positive(A ) Negative LAB CHEMISTRY METHOD 5 9:18 AM EDT [facility] Comment:Specimens from patie nts taking pantoprazole sodium (Protonix) have been shown to produce false positive results. Oxycodone Screen, Ur Negative Negative LAB CHEMISTRY METHOD 5 9:18 AM T [facility] Fentanyl, Ur Positive(A ) Negative LAB CHEMISTRY METHOD 5 9:18 AM [facility] Urine Urine specimen obtained by clean catch procedure / Unknown Non-blood Collection / Unknown 08/29/2024 8:30 AM EDT 08/29/2024 8:38 AM EDT Narrative [facility] - 08/29/2024 9:18 AM EDT Assay cutoffs: Amphetamines ? 1000 ng/mL Barbiturates ?200 ng/mL Benzodiazepines ?? 200 ng/mL Cocaine ? 300 ng/mL Fentanyl ?1 ng/mL Opiates ? 300 ng/mL Oxycodone ? 100 ng/mL THC ?50 ng/mL Semi-quantitative assay for screening purposes only. Unconfirmed screening result should not be used for non-medical purposes. *ALTERNATE METHOD CONFIRMATION DONE UPON REQUEST ONLY* us Kolby Leon MD LAB URINE ORDERABLES Final Res ult [facility] [address] [place] [address], [place] [phone] * Buprenorphine screen, urine (08/29/2024 8:30 AM EDT) [facility] Buprenorphine Screen Urine Negative Negative LAB CHEMISTRY METHOD 08/29/2024 9:02 AM EDT [facility] Urine Urine specimen obtained by clean catch procedure / Unknown Non-blood Collection / Unknown 08/29/2024 8:30 AM EDT 08/29/2024 8:38 AM EDT Narrative [facility] - 08/29/2024 9:02 AM EDT Assay cutoff 5 ng/mL Semi-quantitative assay for screening purposes only. Unconfirmed screening result should not be used for non-medical purposes. *ALTERNATE METHOD CONFIRMATION DONE UPON REQUEST ONLY* us Kolby Leon MD LAB URINE ORDERABLES Final Res ult Performing Organization Address City/[facility]/ZIP Co de Phone Number [facility] [address] [place] [address], [place] [phone] * (ABNORMAL) Methadone, urine (08/29/2024 8:30 AM EDT) [facility] Methadone Screen, Urine Positive (A) Negative LAB CHEMISTRY METHOD 08/29/2024 9:02 AM EDT [facility] Comment: Assay cutoff 300 ng/mL Semi-quantitative assay for screening purposes only. Unconfirmed screening result should not be used for non-medical purposes. *ALTERNATE METHOD CONFIRMATION DONE UPON REQUEST ONLY* Urine Urine specimen obtained by clean catch procedure / Unknown Non-blood Collection / Unknown 08/29/2024 8:30 AM EDT 08/29/2024 8:38 AM EDT us Kolby Leon MD LAB URINE ORDERABLES Final Res ult [facility] [address] [place] [address], [place] [phone] * Phencyclidine, urine (08/29/2024 8:30 AM EDT) PCP Scrn, Ur Negative Negative LAB CHEMISTRY METHOD 08/29/2024 9:02 AM EDT [facility] Comment: Assay cutoff 25 ng/mL Semi-quantitative assay for screening purposes only. Unconfirmed screening result should not be used for non-medical purposes. *ALTERNATE METHOD CONFIRMATION DONE UPON REQUEST ONLY* Urine Urine specimen obtained by clean catch procedure / Unknown Non-blood Collection / Unknown 08/29/2024 8:30 AM EDT 08/29/2024 8:38 AM EDT us Kolby Leon MD LAB URINE ORDERABLES Final Res ult [facility] [address] [place] [address], * (ABNORMAL) Comprehensive metabolic panel (08/29/2024 5:38 AM EDT) Only the most recent of2 resultswithin the time period is included. Sodium 140 133 - 145 mmol/L LAB CHEMISTRY METHOD 08/29/2024 6:20 AM [facility] Potassium 3.7 3.5 - 5.5 mmol/L LAB CHEMISTRY METHOD 08/29/2024 6:20 AM [facility] Chloride 110 96 - 110 mmol/L LAB CHEMISTRY METHOD 08/29/2024 6:20 AM [facility] CO2 25 21 - 32 mmol/L LAB CHEMISTRY METHOD 08/29/2024 6:20 AM [facility] Anion Gap 5 3 - 11 LAB CHEMISTRY METHOD 08/29/2024 6:20 AM [facility] Glucose 101(H) 70 - 100 mg/dL LAB CHEMISTRY METHOD 08/29/2024 6:20 AM [facility] BUN 30(H) 5 - 25 mg/dL LAB CHEMISTRY METHOD 08/29/2024 6:20 AM [facility] Creatinine 0.75 0.70 - 1.30 mg/dL LAB CHEMISTRY METHOD 08/29/2024 6:20 AM [facility] eGFR 122 >=60 mL/min/1. 73m2 LAB CHEMISTRY METHOD 08/29/2024 6:20 AM [facility] Comment:Calculation based on the??Chronic Kidney Disease Epidemiology Collaboration (CKD-EPI) equation refit??without adjustment for race. BUN/Creatinine Ratio 40.0 LAB CHEMISTRY METHOD 08/29/2024 6:20 AM [facility] Calcium 8.3(L) 8.5 - 10.5 mg/dL LAB CHEMISTRY METHOD 08/29/2024 6:20 AM [facility] AST (SGOT) 95(H) 10 - 42 unit/L LAB CHEMISTRY METHOD 08/29/2024 6:20 AM [facility] ALT (SGPT) 44 10 - 60 unit/L LAB CHEMISTRY METHOD 08/29/2024 6:20 AM [facility] Alkaline Phosphatase 59 42 - 121 unit/L LAB CHEMISTRY METHOD 08/29/2024 6:20 AM [facility] Total Protein 6.1 6.0 - 8.0 g/dL LAB CHEMISTRY METHOD 08/29/2024 6:20 AM [facility] Albumin 3.2 3.2 - 5.0 g/dL LAB CHEMISTRY METHOD 08/29/2024 6:20 AM [facility] Total Bilirubin 0.3 0.0 - 1.4 mg/dL LAB CHEMISTRY METHOD 08/29/2024 6:20 AM [facility] Blood Venous blood specimen / Unknown Venipuncture / Unknown 08/29/2024 5:38 AM EDT 08/29/2024 5:50 AM EDT Zulema ANDERSON LAB BLOOD ORDERABLES Fi nal Result Performing Organization Address [facility] Co de Phone Number [facility] [address] [place] [address], [place] [phone] * Troponin I high sensitivity (08/29/2024 3:26 AM EDT) Only the most recent of2 resultswithin the time period is included. [facility] High Sensitivity Troponin I 49 <=79 ng/L LAB CHEMISTRY METHOD 08/29/2024 4:01 AM EDT [facility] Blood Venous blood specimen / Unknown Venipuncture / Unknown 08/29/2024 3:26 AM EDT 08/29/2024 3:32 AM EDT Narrative [facility] - 08/29/2024 4:01 AM EDT High levels of biotin in samples may falsely decrease hsTroponin values. ??Use caution when interpreting hsTroponin results in patients taking biotin who exhibit renal impairment (eGFR <60) or in patients taking more than 20 mg/day of biotin. Jai Emery MD LAB BLOOD ORDERABLES Final Result Performing Organization Address [facility] de Phone Number [facility] [address] [place] [address], [place] [phone] * Ethanol (08/28/2024 11:11 PM EDT) [facility] Ethanol Level 5 0 - 10 mg/dL LAB CHEMISTRY METHOD 08/28/2024 11:49 PM EDT [facility] Blood Venous blood specimen / Unknown Venipuncture / Unknown 08/28/2024 11:11 PM EDT 08/28/2024 11:19 PM EDT Kolby Leon MD LAB BLOOD ORDERABLES Final Res ult Performing Organization Address [facility]/ZIP Co de Phone Number [facility] [address] [place] [address], [place] [phone] * (ABNORMAL) Acetaminophen level (08/28/2024 11:11 PM EDT) Acetaminophen Level <2.0(L) 10.0 - 30.0 mcg/mL LAB CHEMISTRY METHOD 08/28/2024 11:53 PM EDT [facility] Blood Venous blood specimen / Unknown Venipuncture / Unknown 08/28/2024 11:11 PM EDT 08/28/2024 11:19 PM EDT Kolby Leon MD LAB BLOOD ORDERABLES Final Res ult Performing Organization Address [facility]/State/ZIP Co de Phone Number [facility] [address] [place] [address], [place] [phone] * (ABNORMAL) Salicylate level (08/28/2024 11:11 PM EDT) Salicylate Level <1.7(L) 2.0 - 29.0 mg/dL LAB CHEMISTRY METHOD 08/28/2024 11:49 PM EDT [facility] Blood Venous blood specimen / Unknown Venipuncture / Unknown 08/28/2024 11:11 PM EDT 08/28/2024 11:19 PM EDT Kolby Leon MD LAB BLOOD ORDERABLES Final Res ult [facility] [address] [place] [address], [place] [phone] from Last 3 Months Insurance [employer] Advance Directives * Full Code [...] currently active code status orders. Care Teams Marine Engineer Cpvec Relationship Specialty Start Date End Date Physician, Pcp Unknown PCP - General 08/29/24
--- NOTE | 2024-09-30 11:19 | ECG_ITS ---
Test Reason : COCAINE USE Blood Pressure : */* mmHG Vent. Rate : 65 BPM Atrial Rate : 65 BPM P-R Int : 168 ms QRS Dur : 74 ms QT Int : 432 ms P-R-T Axes : 32 18 13 degrees QTcB Int : 449 ms Normal sinus rhythm Normal ECG When compared with ECG of 10-Sep-2024 09:58, No significant change was found Referred By: Linda Salinas Electronically Signed By: NIRANJAN GORDON
[2024-09-30] MEDS: 0.9 % Sodium Chloride 1,000 ML 999 ML IV ×2 (11:40→11:41)
[2024-09-30 11:54] LABS: Troponin-I High Sensitivity < 2.7 ng/L (<3.5-35.0)
[2024-09-30 12:11] LABS: Troponin-I High Sensitivity < 2.7 ng/L (<3.5-35.0)
[2024-09-30 12:12] LABS: Influenza A PCR NEGATIVE (Negative); Influenza B PCR NEGATIVE (Negative); Resp Syncy Virus RNA Qual PCR NEGATIVE (Negative); SARS COV2 PCR INHOUSE NEGATIVE (Negative)
--- NOTE | 2024-09-30 13:07 | HE.PHANOTE ---
RE: methadone Last dose confirmed by Pat, [facility]
[2024-09-30] MEDS: Lactated Ringers 1,000 ML 999 ML IV ×2 (14:24→14:25)
--- NOTE | 2024-09-30 14:43 | PC.NURSE ---
Methadone dose verified with Pili at [facility] patient last dosed 09/28/24 at 160mg
[2024-09-30] MEDS: methADONE HCl 20 MG/2 ML ORAL.CONC 160 MG PO (15:30)
[2024-09-30 15:49] VITALS: BP 112/63; PULSE 77; RESP 12; TEMP 36.4; O2SAT 96
--- NOTE | 2024-09-30 21:20 | PC.NURSE ---
IV fluids infused, VSS, calm and cooperative, transferred to Pod per plan of care. Report given to YOHAN Byrd.
--- NOTE | 2024-09-30 21:38 | PC.NURSE ---
pt arrived back in POD. very mad that he is in the back and not in the bed that he was in earlier. stated she will not be able to get up from the bed because of rhabdo and will pee on himself and security can come clean him up. pt verbally aggressive towards staff. explained to pt that we do not control bed assignment. pt calmer after 20 minutes
[2024-10-01 00:05] VITALS: BP 117/77; PULSE 58; RESP 16; TEMP 36.4; O2SAT 100
[2024-10-01 00:23] LABS: Appearance Urine Clear; Color Urine Yellow; Glucose Urine UA Negative (Negative); Leukocyte Esterase Urine Negative (Negative); Nitrite Urine Negative (Negative); PH 6.5 (5.0-9.0); Specific Gravity - Urine >= 1.030 (1.005-1.025); Urine Blood Negative (Negative); Urine Ketones Negative (Negative); Urine Protein Trace mg/dL (Neg-Trace)
[2024-10-01 00:33] LABS: Amphetamine Screen Urine Not Detected (Not Detect); Barbiturates, Urine POSITIVE (Not Detect); Benzodiazepines Screen Urine POSITIVE (Not Detect); Buprenorphine Scr Not Detected (Not Detect); Cannabinoid Screen Urine POSITIVE (Not Detect); Cocaine Screen Urine POSITIVE (Not Detect); Fentanyl, urine POSITIVE (Not Detect); Methadone Screen, Urine Positive (Not Detect); Opiate Screen Urine POSITIVE (Not Detect); Oxycodone Screen Urine Not Detected (Not Detect); Phencyclidine Screen Urine Not Detected (Not Detect)
[2024-10-01] MEDS: QUEtiapine Fumarate 100 MG TABLET PO (01:12)
[2024-10-01] MEDS: cloNIDine HCL 0.1 MG TABLET PO ×2 (01:12→08:33)
[2024-10-01] MEDS: Nicotine Polacrilex Lozenge 2 MG LOZENGE BUCCAL (01:14)
--- NOTE | 2024-10-01 06:30 | PC.NURSE ---
pt was calm and cooperative for the remainder of the night, resting with eyes closed, breathing even and unlabored, no apparent distress noted at this time
--- NOTE | 2024-10-01 07:39 | PC.NURSE ---
Assumed care of patient at 0645, patient appears to be in no apparent distress this am, sleeping, respirations even and unlabored. Continue plan of care for dual dx bedsearch
[2024-10-01 07:40] VITALS: RESP 16
--- NOTE | 2024-10-01 07:52 | MHC.CARE ---
Accepted to [facility] 10/02/24 10am [address] [place] [address] Dr. Grigsby
[2024-10-01] MEDS: Gabapentin 400 MG CAPSULE 800 MG PO (08:33)
[2024-10-01] MEDS: PARoxetine HCL 30 MG TABLET 60 MG PO (08:33)
[2024-10-01] MEDS: methADONE HCl 20 MG/2 ML ORAL.CONC 160 MG PO (08:33)
[2024-10-01] MEDS: Atorvastatin Calcium 10 MG TABLET PO (08:34)
[2024-10-01] MEDS: Baclofen 20 MG TABLET PO (08:34)
[2024-10-01] MEDS: Pramipexole Di-HCL 0.125 MG TABLET PO (08:38)
[2024-10-01 08:42] VITALS: BP 142/74; PULSE 84; RESP 16; TEMP 37; O2SAT 97
--- NOTE | 2024-10-01 08:44 | MHC.CARE ---
Pt is declining placement at for tomorrow and will now be discharged. He does not present as an imminent risk. Provider in agreement.
--- NOTE | 2024-10-01 08:56 | PC.NURSE ---
Pt made aware that he has a bed available at [facility] for tomorrow, pt became upset, stating I am not going there, it is run by a bunch of blacks and they say I am racist . Pt educated by CARE team that if he does not accept placement he will most likely be discharged. Pt agitated but agreeable. CARE team spoke with MD who is on board with plan. Pt then got on phone, speaking to another individual stating I guess I am just gonna fucking shoot myself in the head . CARE team aware. Continue plan of care for discharge Patient changed over and discharged with CARE steam oven operator Dione
== END 2024-10-01 09:03 | disposition home or self-care (01) ==
PROVIDERS: Physician Assistant Medical; Emergency Provider Emergency Medicine Emergency Medical Services
DX: R45.851 Suicidal ideations (principal); F32.A Depression, unspecified; F14.10 Cocaine abuse, uncomplicated; Z03.818 Encounter for observation for suspected exposure to other biological agents ruled out
CPT/HCPCS: 0241U; 36415; 80053; 80307; 81003; 82550; 84484; 85025; 93005; 96360; 96361; 99285; J7120; S9485

== ENCOUNTER → 2024-09-30 11:19 | Outpatient (BNV) | payer OTHER, SELFPAY | PROVIDERS: Emergency Provider Emergency Medicine Emergency Medical Services; Visit Provider Internal Medicine | DX: F14.90 Cocaine use, unspecified, uncomplicated (principal) | CPT/HCPCS: 93010 ==

== ENCOUNTER 2024-10-02 09:42 | Emergency (ER) | payer OTHER, SELFPAY ==
[2024-10-02 11:52] VITALS: BP 113/61; PULSE 65; RESP 16; TEMP 36.6; O2SAT 97; BMI 33.0
--- NOTE | 2024-10-02 11:57 | ED_ITS ---
HPI - General Adult General Chief complaint: General Medical Stated complaint: Methadone dose Time Seen by Provider: 10/02/24 12:02 Source: patient Mode of arrival: ambulatory Limitations: no limitations History of Present Illness ED Provider: Michael Mack HPI narrative: 33 yold male with pmh of substance abuse presents to the ED for methadone. Patient had methadone 160mg fulfilled at [facility]. Patient will start at his new methadone clinic tomorrow. Patient states no physical complaints. Related Data Home Medications ?Medication ?Instructions ?Recorded ?Confirmed methadone 10 mg/mL oral 160 mg PO DAILY 08/14/24 10/02/24 concentrate (Methadose) prazosin 2 mg capsule 6 mg PO BEDTIME 09/09/24 09/30/24 gabapentin 800 mg tablet 800 mg PO TID 09/30/24 09/30/24 quetiapine 100 mg tablet 100 mg PO BEDTIME 09/30/24 09/30/24 Previous Rx's ?Medication ?Instructions ?Recorded atorvastatin 10 mg tablet 10 mg PO DAILY 30 days #30 tabs 01/10/24 baclofen 20 mg tablet 20 mg PO BID 30 days #60 tabs 01/10/24 chlorpromazine 25 mg tablet 25 mg PO TID PRN mild agitation 30 01/10/24 days #90 tabs clonidine HCl 0.1 mg tablet 0.1 mg PO TID@0900,1300,1700 01/10/24 Anxiety 30 days #90 tabs nicotine (polacrilex) 2 mg buccal 2 mg PO Q2H PRN Nicotine Cravings 01/10/24 lozenge 30 days #108 ea nicotine 21 mg/24 hr daily 1 patch topical DAILY PRN nicotine 01/10/24 transdermal patch cravings 28 days #28 ea paroxetine HCl 30 mg tablet 60 mg (2 x 30 mg) PO DAILY 30 days 01/10/24 #60 tabs pramipexole 0.125 mg tablet 0.125 mg PO DAILY 30 days #30 tabs 01/10/24 Allergies Allergy/AdvReac Type Severity Reaction Status Date / Time amoxicillin Allergy Hives Verified 10/03/24 08:47 Penicillins [PCN] Allergy Hives Verified 10/03/24 08:47 seafood Allergy Difficulty Verified 10/03/24 08:47 Breathing Review of Systems Review of Systems: methaonde Yes all other systems are reviewed and are negative PMFSH Past Medical History Medical History Polysubstance use disorder Opioid use disorder Depression Antisocial personality disorder Cocaine use disorder, moderate, dependence Benzodiazepine abuse MDD (major depressive disorder), recurrent, severe, with psychosis Alcohol use disorder Mood disorder PTSD (post-traumatic stress disorder) Polysubstance (including opioids) dependence, daily use Social History Social History Household Members: None Household Members Other:: homeless Housing: Homeless Do you presently have visiting nurse or other home services: No Unable to assess alcohol history related to: Unknown Alcohol intake: current Alcohol intake frequency: a few times a month Alcohol type: hard liquor Comment: Pt ambulates independently Patient Tobacco Use Status: Current everyday Tobacco user Tobacco use type: Cigarette Cigarette Packs Per Day: 1 Cigarettes Per Day: 5 Years Smoked: 20 e-Cigarette/Vaping Use: Never Used Second Hand Smoke Exposure: No Substance Use Type: Crack/Cocaine Advance Directives: No Advance Directives Information Provided: Yes service: No Current occupational status: unemployed Sexual orientation: Straight/Heterosexual Physical Exam ED Vital Signs: Vital Signs - 24 hr 10/02/24 11:52 Temperature 97.8 F Pulse Rate 65 Respiratory Rate 16 Blood Pressure 113/61 Pulse Oximetry 97 Oxygen Delivery Method Room Air BMI result Body Mass Index 33.0 Const General: cooperative, healthy appearing, comfortable, no acute distress, well developed, alert, awake and Physically active Orientation/consciousness: patient oriented x3 HENMT Head: Yes normal to inspection, Yes No palpable skull fracture present, Yes normocephalic and Yes atraumatic Ears: hearing grossly normal bilaterally, external ears normal, TM's normal bilaterally, TM normal on the right, TM normal on the left, EAC's normal, mastoids normal and no periauricular adenopathy Throat: Yes posterior oropharynx normal, Yes tonsils normal and Yes uvula midline Eyes General: appearance normal, both eyes and all related structures Neck Neck: Yes normal visual inspection, Yes full ROM, Yes no lymphadenopathy, Yes no meningeal signs, Yes trachea midline, Yes supple and Yes anterior neck swelling Chest Chest palpation & inspection: normal inspection of the chest and normal palpation of entire chest wall Resp Effort & Inspection: normal respiratory effort and able to speak in complete sentences Auscultation: clear to auscultation bilaterally Cardio Jugular venous distension: no JVD Heart sounds: S1 normal heart sound present and S2 normal heart sound present GI Inspection: Yes normal to inspection Palpation (GI): Soft to palpation, not firm, nontender, no guarding and not rigid General: Yes no CVA tenderness Back/Spine/Pelvis Back: no CVA tenderness and No back tenderness Skin General skin exam: no rashes or lesions noted, elasticity normal and turgor normal Neuro General: patient oriented x3, gait normal, tone normal, moves all extremities, Normal light touch and pain sensation, no meningeal signs, no focal motor d eficits and CN's II-XI intact bilaterally Gait exam (Neuro): Normal gait present Extrem General: Yes normal to inspection, Yes full ROM and Yes capillary refill normal Psych Appearance: grossly normal, well kempt and not disheveled Course Course Course Narrative: RME: Medications Administered Discontinued Medications Generic Name Dose Route Start Last Admin Trade Name Freq PRN Reason Stop Dose Admin Methadone HCl 160 mg 10/02/24 12:05 10/02/24 12:36 Methadone Hcl 20 Mg/2 Ml Oral.Conc PO 10/02/24 12:06 160 mg ONCE ONE Administration Medical Decision Making Medical Decision Making MDM Narrative: 32-year-old male presents to ED for methadone. Patient was dose yesterday at [facility]. Patient has follow-up with Methadone Clinic appointment tomorrow. Patient states no physical complaints. [facility] pharmacist was called and informed fill out the methadone verification informed with [facility] information since patient received methadone yesterday and patient will receive medication. Patient explained worrisome signs and informed to return to the ED immediately. Not concerned for any life threatened etiology. Differential Diagnosis Differential Diagnoses: The differential diagnosis associated with the presentation includes (Methadone) Admission/Observation Consideration of admission/observation: Escalation of care including admission/observation considered Independent Historian Clinical information obtained from an independent historian. History obtained from or confirmed by: Other (Patient) Discharge Plan Discharge Clinical Impression: Medicine refill Patient Disposition: Home, Self-Care Instructions: Medicine Refill (ED) Additional Instructions: Recommend keeping your appointment with methadone clinic that is scheduled for tomorow. Return to the ED any physical complaints, suicidal/homicidal ideation, auditory/visual hallucinations, or any other concerning symptoms. Prescriptions: No Action chlorpromazine 25 mg Tablet 25 mg PO TID PRN (Reason: mild agitation) 30 Days Qty: 90 1RF clonidine HCl 0.1 mg tablet 0.1 mg PO TID@0900,1300,1700 30 Days Qty: 90 1RF atorvastatin 10 mg tablet 10 mg PO DAILY 30 Days Qty: 30 1RF baclofen 20 mg tablet 20 mg PO BID 30 Days Qty: 60 1RF paroxetine HCl 30 mg tablet 60 mg PO DAILY 30 Days Qty: 60 1RF nicotine 21 mg/24 hr patch 24 hour 1 patch topical DAILY PRN (Reason: nicotine cravings) 28 Days Qty: 28 0RF pramipexole 0.125 mg tablet 0.125 mg PO DAILY 30 Days Qty: 30 1RF nicotine (polacrilex) 2 mg lozenge 2 mg PO Q2H PRN (Reason: Nicotine Cravings) 30 Days Qty: 108 0RF Rx Instructions: DNE 20/DAY methadone [Methadose] 10 mg/mL concentrate 160 mg PO DAILY Rx Instructions: Partial Fill upon patient request. prazosin 2 mg capsule 6 mg PO BEDTIME quetiapine 100 mg tablet 100 mg PO BEDTIME gabapentin 800 mg Tablet 800 mg PO TID Stand Alone Forms: Work/School Release Interventions: ED Discharge Assessment Last Done: 10/02/24 12:49 Discharge Date/Time: 10/02/24 12:50 Print Language: Thai
--- NOTE | 2024-10-02 12:23 | HE.PHANOTE ---
RE: METHADONE DOSING Last dose of methadone 160 mg was given at [facility] on 09/28/24 per [facility] at [facility]. Patient last received methadone 160 mg at [facility] on 10/01/24 @0833.
[2024-10-02] MEDS: methADONE HCl 20 MG/2 ML ORAL.CONC 160 MG PO (12:36)
--- NOTE | 2024-10-02 12:42 | PC.NURSE ---
This Nurse medicated PT per AUG. Last dose letter given to PT and instructions given on not to open it and provide it to staff at clinic.
[2024-10-02 12:49] VITALS: BP 113/61; PULSE 65; RESP 16; TEMP 36.6; O2SAT 97
--- OUTSIDE RECORDS SUMMARY | 2024-10-02 13:49 | XMS_ITS | Clinical Summary ---
Author Organization [facility] Address [address] [place] [address] Phone Care Team Providers Care Marble Setter Name Role Phone Physician, Pcp Unknown Primary [...] - 08/30/2024 3:01 PM EDT Hospital Encounter [facility] [address] [place] [id number] Kolby Leon MD Seralathan, Manikandan, MD Non-traumatic rhabdomyolysis (Primary Dx); Suicidal ideation; Cocaine abuse ([facility] V24, [facility] V28); Opioid abuse ([facility] V24, [facility] V28) Discharge Disposition: Psychiatric Hospital from Last 3 Months Medical History Medical History Date Comments Substance abuse ([facility] V24, [facility] V28) Social History Tobacco Use Types Packs/Day [...] your loved ones. For example, child care specialist or elderly care for an older adult? [...] is included. WBC 4.1(L) 4.8 - 10.8 K/[facility] LAB HEMETOLOGY METHOD 08/30/2024 7:47 AM [facility] RBC 3.30(L) 4.50 - 5.50 M/mcL LAB HEMETOLOGY METHOD 08/30/2024 7:47 AM [facility] Hemoglobin 9.1(L) 13.5 - 17.5 g/dL LAB HEMETOLOGY METHOD 08/30/2024 7:47 AM [facility] Hematocrit 29.8(L) 42.0 - 54.0 % LAB HEMETOLOGY METHOD 08/30/2024 7:47 AM [facility] MCV 89.2 79.0 - 98.0 FL LAB HEMETOLOGY METHOD 08/30/2024 7:47 AM [facility] MCH 27.2 27.0 - 32.0 pcg LAB HEMETOLOGY METHOD 08/30/2024 7:47 AM [facility] MCHC 30.5(L) 32.0 - 37.0 g/dL LAB HEMETOLOGY METHOD 08/30/2024 7:47 AM [facility] RDW 16.1(H) 11.0 - 15.0 % LAB HEMETOLOGY METHOD 08/30/2024 7:47 AM [facility] Platelets 170 130 - 400 K/mcL LAB HEMETOLOGY METHOD 08/30/2024 7:47 AM [facility] MPV 11.1(H) 7.0 - 11.0 FL LAB HEMETOLOGY METHOD 08/30/2024 7:47 AM [facility] NRBC 0.0 <1.0 % LAB HEMETOLOGY METHOD 08/30/2024 7:47 AM [facility] NRBC Absolute 0.00 <0.10 K/mcL LAB HEMETOLOGY METHOD 08/30/2024 7:47 AM [facility] Neutrophils Relative 26.2 % LAB HEMETOLOGY METHOD 08/30/2024 7:47 AM [facility] Lymphocytes Relative 52.3 % LAB HEMETOLOGY METHOD 08/30/2024 7:47 AM [facility] Monocytes Relative 10.9 % LAB HEMETOLOGY METHOD 08/30/2024 7:47 AM [facility] Eosinophils Relative 9.2 % LAB HEMETOLOGY METHOD 08/30/2024 7:47 AM [facility] Basophils Relative 1.2 % LAB HEMETOLOGY METHOD 08/30/2024 7:47 AM [facility] Immature Granulocytes Relative 0.2 % LAB HEMETOLOGY METHOD 08/30/2024 7:47 AM [facility] Neutrophils Absolute 1.08(L) 1.50 - 7.00 K/mcL LAB HEMETOLOGY METHOD 08/30/2024 7:47 AM [facility] Lymphocytes Absolute 2.16 1.00 - 5.00 K/mcL LAB HEMETOLOGY METHOD 08/30/2024 7:47 AM [facility] Monocytes Absolute 0.45 0.20 - 1.00 K/mcL LAB HEMETOLOGY METHOD 08/30/2024 7:47 AM [facility] Eosinophils Absolute 0.38 0.00 - 0.50 K/mcL LAB HEMETOLOGY METHOD 08/30/2024 7:47 AM [facility] Basophils Absolute 0.05 0.00 - 0.20 K/mcL LAB HEMETOLOGY METHOD 08/30/2024 7:47 AM [facility] Immature Granulocytes Absolute 0.01 0.00 - 0.03 K/mcL LAB HEMETOLOGY METHOD 08/30/2024 7:47 AM [facility] Blood Venous blood specimen / Unknown Venipuncture / Unknown 08/30/2024 7:19 AM EDT 08/30/2024 7:39 AM EDT us Audrey ANDERSON LAB BLOOD ORDERABLES Final Result Performing Organization Address [facility] Co de Phone Number [facility] [address] [place] [address], [place] [phone] * Magnesium (08/30/2024 7:19 AM EDT) [facility] Magnesium 2.0 1.9 - 2.6 mg/dL LAB CHEMISTRY METHOD 08/30/2024 8:35 AM EDT [facility] Blood Venous blood specimen / Unknown Venipuncture / Unknown 08/30/2024 7:19 AM EDT 08/30/2024 7:38 AM EDT us Audrey ANDERSON LAB BLOOD ORDERABLES Final Result Performing Organization Address [facility] de Phone Number [facility] [address] [place] [address], [place] [phone] * (ABNORMAL) Creatine kinase (08/30/2024 7:19 AM EDT) Only the most recent of3 resultswithin the time period is included. [facility] Total CK 1,758(H) 22 - 269 unit/L LAB CHEMISTRY METHOD 08/30/2024 8:35 AM EDT [facility] Blood Venous blood specimen / Unknown Venipuncture / Unknown 08/30/2024 7:19 AM EDT 08/30/2024 7:38 AM EDT us Audrey ANDERSON LAB BLOOD ORDERABLES Final Result Performing Organization Address [facility] Co de Phone Number [facility] [address] [place] [address], [place] [phone] * (ABNORMAL) Basic metabolic panel (08/30/2024 7:19 AM EDT) Sodium 139 133 - 145 mmol/L LAB CHEMISTRY METHOD 08/30/2024 8:35 AM [facility] Potassium 4.3 3.5 - 5.5 mmol/L LAB CHEMISTRY METHOD 08/30/2024 8:35 AM [facility] Comment:Hemolysis present Chloride 110 96 - 110 mmol/L LAB CHEMISTRY METHOD 08/30/2024 8:35 AM [facility] CO2 25 21 - 32 mmol/L LAB CHEMISTRY METHOD 08/30/2024 8:35 AM [facility] Anion Gap 4 3 - 11 LAB CHEMISTRY METHOD 08/30/2024 8:35 AM [facility] Glucose 106(H) 70 - 100 mg/dL LAB CHEMISTRY METHOD 08/30/2024 8:35 AM [facility] BUN 16 5 - 25 mg/dL LAB CHEMISTRY METHOD 08/30/2024 8:35 AM [facility] Creatinine 0.66(L) 0.70 - 1.30 mg/dL LAB CHEMISTRY METHOD 08/30/2024 8:35 AM [facility] eGFR 127 >=60 mL/min/1. 73m2 LAB CHEMISTRY METHOD 08/30/2024 8:35 AM [facility] Comment:Calculation based on the??Chronic Kidney Disease Epidemiology Collaboration (CKD-EPI) equation refit??without adjustment for race. BUN/Creatinine Ratio 24.2 LAB CHEMISTRY METHOD 08/30/2024 8:35 AM [facility] Calcium 8.0(L) 8.5 - 10.5 mg/dL LAB CHEMISTRY METHOD 08/30/2024 8:35 AM [facility] Blood Venous blood specimen / Unknown Venipuncture / Unknown 08/30/2024 7:19 AM EDT 08/30/2024 7:38 AM EDT Audrey ANDERSON LAB BLOOD ORDERABLES Final Result [facility] [address] [place] [address], * ECG-Annotated (08/30/2024) Provider Onbase ECG ORDERABLES Final Result * (ABNORMAL) Urinalysis with reflex microscopic and culture (08/29/2024 8:30 AM EDT) Specific [place] Urine 1.032(H) 1.003 - 1.030 LAB URINALYSIS - AUTOMATED METHOD 08/29/2024 8:43 AM [facility] pH, Urine 6.0 5.0 - 8.0 pH LAB URINALYSIS - AUTOMATED METHOD 08/29/2024 8:43 AM [facility] Leukocytes, Urine Negative Negative LAB URINALYSIS - AUTOMATED METHOD 08/29/2024 8:43 AM [facility] Nitrite, Urine Negative Negative LAB URINALYSIS - AUTOMATED METHOD 08/29/2024 8:43 AM [facility] Protein, Urine Trace <=Trace mg/dL LAB URINALYSIS - AUTOMATED METHOD 08/29/2024 8:43 AM [facility] Glucose, Urine Negative Negative mg/dL LAB URINALYSIS - AUTOMATED METHOD 08/29/2024 8:43 AM [facility] Ketones, Urine 15(A) Negative mg/dL LAB URINALYSIS - AUTOMATED METHOD 08/29/2024 8:43 AM [facility] Urobilinogen, Urine 1.0 0.2 - 1.0 mg/dL LAB URINALYSIS - AUTOMATED METHOD 08/29/2024 8:43 AM [facility] Bilirubin, Urine Negative Negative LAB URINALYSIS - AUTOMATED METHOD 08/29/2024 8:43 AM EDT [facility] Blood, Urine Negative Negative LAB URINALYSIS - AUTOMATED METHOD 08/29/2024 8:43 AM EDT [facility] Urine Urine specimen obtained by clean catch procedure / Unknown Non-blood Collection / Unknown 08/29/2024 8:30 AM EDT 08/29/2024 8:38 AM EDT [facility] LAB URINE ORDERABLES Final Resul t Performing Organization Address [facility] Co de Phone Number [facility] [address] [place] [address], [place] [phone] * [place] urine culture tube (08/29/2024 8:30 AM EDT) Extra Tube Hold for add-ons. 08/29/2024 10:02 AM EDT [facility] Comment:Auto resulted. Urine Urine specimen obtained by clean catch procedure / Unknown Non-blood Collection / Unknown 08/29/2024 8:30 AM EDT 08/29/2024 8:38 AM EDT [facility] LAB URINE ORDERABLES Final Resul t Performing Organization Address [facility] de Phone Number [facility] [address] [place] [address], [place] [phone] * (ABNORMAL) Drug abuse screen 8a panel, urine (08/29/2024 8:30 AM EDT) Amphetamine Screen, Ur Negative Negative LAB CHEMISTRY METHOD 5 9:18 AM EDT [facility] Comment:Certain OTC medicati ons containing ephedrine, phenylephrine, pseudoephedrine and phenylpropanolamine can cause false positive results. Barbiturate Screen, Ur Negative Negative LAB CHEMISTRY METHOD 5 9:18 AM EDT [facility] Benzodiazepine Screen, Ur Positive(A ) Negative LAB CHEMISTRY METHOD 5 9:18 AM EDT [facility] Cocaine Screen, Ur Positive(A ) Negative LAB CHEMISTRY METHOD 5 9:18 AM EDT [facility] Opiate Screen, Ur Negative Negative LAB CHEMISTRY METHOD 5 9:18 AM T [facility] Cannabinoid (THC) Screen, Ur Positive(A ) Negative LAB CHEMISTRY METHOD 5 9:18 AM EDT [facility] Comment:Specimens from patie nts taking pantoprazole sodium (Protonix) have been shown to produce false positive results. Oxycodone Screen, Ur Negative Negative LAB CHEMISTRY METHOD 5 9:18 AM T [facility] Fentanyl, Ur Positive(A ) Negative LAB CHEMISTRY METHOD 5 9:18 AM [facility] Urine Urine specimen obtained by clean catch procedure / Unknown Non-blood Collection / Unknown 08/29/2024 8:30 AM EDT 08/29/2024 8:38 AM EDT Narrative [facility] - 08/29/2024 9:18 AM EDT [...] MD LAB URINE ORDERABLES Final Res ult [facility]) [facility] [address] [place] [address], [place] [phone] * Buprenorphine screen, urine (08/29/2024 8:30 AM EDT) [facility] Buprenorphine Screen Urine Negative Negative LAB CHEMISTRY METHOD 08/29/2024 9:02 AM EDT [facility] Urine Urine specimen obtained by clean catch procedure / Unknown Non-blood Collection / Unknown 08/29/2024 8:30 AM EDT 08/29/2024 8:38 AM EDT Narrative [facility] - 08/29/2024 9:02 AM EDT Assay cutoff 5 ng/mL Semi-quantitative assay for screening purposes only. Unconfirmed screening result should not be used for non-medical purposes. *ALTERNATE METHOD CONFIRMATION DONE UPON REQUEST ONLY* us Kolby Leon MD LAB URINE ORDERABLES Final Res ult Performing Organization Address [facility]/ZIP Co de Phone Number [facility] [address] [place] [address], [place] [phone] * (ABNORMAL) Methadone, urine (08/29/2024 8:30 AM EDT) [facility] Methadone Screen, Urine Positive (A) Negative LAB CHEMISTRY METHOD 08/29/2024 9:02 AM EDT [facility] Comment: Assay cutoff 300 ng/mL Semi-quantitative assay for screening purposes only. Unconfirmed screening result should not be used for non-medical purposes. *ALTERNATE METHOD CONFIRMATION DONE UPON REQUEST ONLY* Urine Urine specimen obtained by clean catch procedure / Unknown Non-blood Collection / Unknown 08/29/2024 8:30 AM EDT 08/29/2024 8:38 AM EDT us Kolby Leon MD LAB URINE ORDERABLES Final Res ult [facility] [address] [place] [address], [place] [phone] * Phencyclidine, urine (08/29/2024 8:30 AM EDT) PCP Scrn, Ur Negative Negative LAB CHEMISTRY METHOD 08/29/2024 9:02 AM EDT [facility] Comment: Assay cutoff 25 ng/mL Semi-quantitative assay for screening purposes only. Unconfirmed screening result should not be used for non-medical purposes. *ALTERNATE METHOD CONFIRMATION DONE UPON REQUEST ONLY* Urine Urine specimen obtained by clean catch procedure / Unknown Non-blood Collection / Unknown 08/29/2024 8:30 AM EDT 08/29/2024 8:38 AM EDT us Kolby Leon MD LAB URINE ORDERABLES Final Res ult [facility] [address] [place] [address], * (ABNORMAL) Comprehensive metabolic panel (08/29/2024 5:38 AM EDT) Only the most recent of2 resultswithin the time period is included. Sodium 140 133 - 145 mmol/L LAB CHEMISTRY METHOD 08/29/2024 6:20 AM [facility] Potassium 3.7 3.5 - 5.5 mmol/L LAB CHEMISTRY METHOD 08/29/2024 6:20 AM [facility] Chloride 110 96 - 110 mmol/L LAB CHEMISTRY METHOD 08/29/2024 6:20 AM [facility] CO2 25 21 - 32 mmol/L LAB CHEMISTRY METHOD 08/29/2024 6:20 AM [facility] Anion Gap 5 3 - 11 LAB CHEMISTRY METHOD 08/29/2024 6:20 AM [facility] Glucose 101(H) 70 - 100 mg/dL LAB CHEMISTRY METHOD 08/29/2024 6:20 AM [facility] BUN 30(H) 5 - 25 mg/dL LAB CHEMISTRY METHOD 08/29/2024 6:20 AM [facility] Creatinine 0.75 0.70 - 1.30 mg/dL LAB CHEMISTRY METHOD 08/29/2024 6:20 AM [facility] eGFR 122 >=60 mL/min/1. 73m2 LAB CHEMISTRY METHOD 08/29/2024 6:20 AM [facility] Comment:Calculation based on the??Chronic Kidney Disease Epidemiology Collaboration (CKD-EPI) equation refit??without adjustment for race. BUN/Creatinine Ratio 40.0 LAB CHEMISTRY METHOD 08/29/2024 6:20 AM [facility] Calcium 8.3(L) 8.5 - 10.5 mg/dL LAB CHEMISTRY METHOD 08/29/2024 6:20 AM [facility] AST (SGOT) 95(H) 10 - 42 unit/L LAB CHEMISTRY METHOD 08/29/2024 6:20 AM [facility] ALT (SGPT) 44 10 - 60 unit/L LAB CHEMISTRY METHOD 08/29/2024 6:20 AM [facility] Alkaline Phosphatase 59 42 - 121 unit/L LAB CHEMISTRY METHOD 08/29/2024 6:20 AM [facility] Total Protein 6.1 6.0 - 8.0 g/dL LAB CHEMISTRY METHOD 08/29/2024 6:20 AM [facility] Albumin 3.2 3.2 - 5.0 g/dL LAB CHEMISTRY METHOD 08/29/2024 6:20 AM [facility] Total Bilirubin 0.3 0.0 - 1.4 mg/dL LAB CHEMISTRY METHOD 08/29/2024 6:20 AM [facility] Blood Venous blood specimen / Unknown Venipuncture / Unknown 08/29/2024 5:38 AM EDT 08/29/2024 5:50 AM EDT Zulema ANDERSON LAB BLOOD ORDERABLES Fi nal Result Performing Organization Address [facility] Co de Phone Number [facility] [address] [place] [address], [place] [phone] * Troponin I high sensitivity (08/29/2024 3:26 AM EDT) Only the most recent of2 resultswithin the time period is included. [facility] High Sensitivity Troponin I 49 <=79 ng/L LAB CHEMISTRY METHOD 08/29/2024 4:01 AM EDT [facility] Blood Venous blood specimen / Unknown Venipuncture / Unknown 08/29/2024 3:26 AM EDT 08/29/2024 3:32 AM EDT Narrative [facility] - 08/29/2024 4:01 AM EDT High levels of biotin in samples may falsely decrease hsTroponin values. ??Use caution when interpreting hsTroponin results in patients taking biotin who exhibit renal impairment (eGFR <60) or in patients taking more than 20 mg/day of biotin. Jai Emery MD LAB BLOOD ORDERABLES Final Result Performing Organization Address [facility] de Phone Number [facility] [address] [place] [address], [place] [phone] * Ethanol (08/28/2024 11:11 PM EDT) [facility] Ethanol Level 5 0 - 10 mg/dL LAB CHEMISTRY METHOD 08/28/2024 11:49 PM EDT [facility] Blood Venous blood specimen / Unknown Venipuncture / Unknown 08/28/2024 11:11 PM EDT 08/28/2024 11:19 PM EDT Kolby Leon MD LAB BLOOD ORDERABLES Final Res ult Performing Organization Address [facility]/ZIP Co de Phone Number [facility] [address] [place] [address], [place] [phone] * (ABNORMAL) Acetaminophen level (08/28/2024 11:11 PM EDT) Acetaminophen Level <2.0(L) 10.0 - 30.0 mcg/mL LAB CHEMISTRY METHOD 08/28/2024 11:53 PM EDT [facility] Blood Venous blood specimen / Unknown Venipuncture / Unknown 08/28/2024 11:11 PM EDT 08/28/2024 11:19 PM EDT Kolby Leon MD LAB BLOOD ORDERABLES Final Res ult Performing Organization Address [facility]/State/ZIP Co de Phone Number [facility] [address] [place] [address], [place] [phone] * (ABNORMAL) Salicylate level (08/28/2024 11:11 PM EDT) Salicylate Level <1.7(L) 2.0 - 29.0 mg/dL LAB CHEMISTRY METHOD 08/28/2024 11:49 PM EDT [facility] Blood Venous blood specimen / Unknown Venipuncture / Unknown 08/28/2024 11:11 PM EDT 08/28/2024 11:19 PM EDT Kolby Leon MD LAB BLOOD ORDERABLES Final Res ult [facility] [address] [place] [address], [place] [phone] from Last 3 Months Insurance [facility] PUBLIC PLANS Advance Directives * Full Code [...] currently active code status orders. Care Teams Marble Setter Relationship Specialty Start Date End Date Physician, Pcp Unknown PCP - General 08/29/24
== END 2024-10-02 12:50 | disposition home or self-care (01) ==
PROVIDERS: Emergency Provider Emergency Medicine
DX: F11.10 Opioid abuse, uncomplicated (principal); F17.210 Nicotine dependence, cigarettes, uncomplicated; Z79.899 Other long term (current) drug therapy; Z76.0 Encounter for issue of repeat prescription
CPT/HCPCS: 99282; 99283

== ENCOUNTER 2024-10-03 08:43 | Emergency (ER) | payer OTHER, SELFPAY ==
[2024-10-03 08:46] VITALS: BP 121/67; PULSE 72; RESP 16; TEMP 36.1; O2SAT 97; BMI 32.9
--- NOTE | 2024-10-03 09:15 | ED.GENADULT ---
HPI - General Adult General Chief complaint: General Medical Stated complaint: methadone dose Time Seen by Provider: 10/03/24 09:02 Source: patient Mode of arrival: ambulatory Limitations: no limitations History of Present Illness ED Provider: AIDEE KAUFMAN PA-C HPI narrative: 33-year-old male with past medical history significant for polysubstance abuse on methadone, mood disorder presents to the ED today requesting methadone dose. He was last dosed with 160mg at our facility yesterday. Reports missing his dose this morning. Denies any symptoms of withdrawal. Denies any physical complaints at present. Denies any other illicit substance use. Denies EtOH consumption. Denies //TH. Related Data Home Medications ?Medication ?Instructions ?Recorded ?Confirmed methadone 10 mg/mL oral 160 mg PO DAILY 08/14/24 10/02/24 concentrate (Methadose) prazosin 2 mg capsule 6 mg PO BEDTIME 09/09/24 09/30/24 gabapentin 800 mg tablet 800 mg PO TID 09/30/24 09/30/24 quetiapine 100 mg tablet 100 mg PO BEDTIME 09/30/24 09/30/24 Previous Rx's ?Medication ?Instructions ?Recorded atorvastatin 10 mg tablet 10 mg PO DAILY 30 days #30 tabs 01/10/24 baclofen 20 mg tablet 20 mg PO BID 30 days #60 tabs 01/10/24 chlorpromazine 25 mg tablet 25 mg PO TID PRN mild agitation 30 01/10/24 days #90 tabs clonidine HCl 0.1 mg tablet 0.1 mg PO TID@0900,1300,1700 01/10/24 Anxiety 30 days #90 tabs nicotine (polacrilex) 2 mg buccal 2 mg PO Q2H PRN Nicotine Cravings 01/10/24 lozenge 30 days #108 ea nicotine 21 mg/24 hr daily 1 patch topical DAILY PRN nicotine 01/10/24 transdermal patch cravings 28 days #28 ea paroxetine HCl 30 mg tablet 60 mg (2 x 30 mg) PO DAILY 30 days 01/10/24 #60 tabs pramipexole 0.125 mg tablet 0.125 mg PO DAILY 30 days #30 tabs 01/10/24 Allergies Allergy/AdvReac Type Severity Reaction Status Date / Time amoxicillin Allergy Hives Verified 10/03/24 08:47 Penicillins [PCN] Allergy Hives Verified 10/03/24 08:47 seafood Allergy Difficulty Verified 10/03/24 08:47 Breathing Review of Systems Review of Systems: Yes all other systems are reviewed and are negative FOR[facility]LY [facility] Past Medical History Attestation statement: The following information was validated with the patient. Source: old records reviewed and nursing notes reviewed Medical History Polysubstance use disorder Opioid use disorder Depression Antisocial personality disorder Cocaine use disorder, moderate, dependence Benzodiazepine abuse MDD (major depressive disorder), recurrent, severe, with psychosis Alcohol use disorder Mood disorder PTSD (post-traumatic stress disorder) Polysubstance (including opioids) dependence, daily use Social History Social History Household Members: None Household Members Other:: homeless Housing: Homeless Do you presently have visiting nurse or other home services: No Unable to assess alcohol history related to: Unknown Alcohol intake: current Alcohol intake frequency: a few times a month Alcohol type: hard liquor Comment: Pt ambulates independently Patient Tobacco Use Status: Current everyday Tobacco user Tobacco use type: Cigarette Cigarette Packs Per Day: 1 Cigarettes Per Day: 5 Years Smoked: 20 e-Cigarette/Vaping Use: Never Used Second Hand Smoke Exposure: No Substance Use Type: Crack/Cocaine Advance Directives: No Advance Directives Information Provided: Yes service: No Current occupational status: unemployed Sexual orientation: Straight/Heterosexual Physical Exam ED Vital Signs: Vital Signs - 24 hr 10/03/24 08:46 Temperature 96.9 F Pulse Rate 72 Respiratory Rate 16 Blood Pressure 121/67 Pulse Oximetry 97 Oxygen Delivery Method Room Air BMI result Body Mass Index 32.9 Vital signs stable General: well appearing, in no acute distress. Skin: Warm, dry, intact. No rashes or lesions. Head: Normocephalic, atraumatic. EENT: Hearing is intact b/l. Conjunctiva clear.PERRLA. EOM intact. Moist mucous membranes.? Cardiac: Chest wall symmetric. RRR Lungs: Normal respiratory effort without accessory muscle use. CTA bilaterally Back: No midline spinous or paraspinal tenderness. No step off deformity. Ext: Upper and lower extremities atraumatic, without tenderness, deformity, swelling or erythema Neuro: AOx3. Normal speech. CN 2-12 grossly intact. Ambulating with steady gait. Course Course Course Narrative: Confirmed last dose of 160 mg methadone yesterday at our facility. 160 mg ordered and administered here. Patient tolerated well. Patient has remained stable throughout ED visit today. Advised to follow up with his methadone clinic tomorrow for further dosing. Discussed worrisome signs and symptoms and when to return to the ED. All questions answered at this time. Patient is agreeable with disposition and stable for discharge. Medical Decision Making Medical Decision Making MDM Narrative: 33-year-old male with past medical history significant for polysubstance abuse on methadone, mood disorder presents to the ED today requesting methadone dose. Vital signs stable. He is nontoxic appearing in no acute distress. Physical exam quite benign. I do not have concern for any withdrawals at this time. Plan for methadone nose and disposition Differential Diagnosis Differential Diagnoses: The differential diagnosis associated with the presentation includes As above Admission/Observation not indicated. External Record Review External record reviewed: Inpatient record Chronic Conditions Patient?s care impacted by: Other (Polysubstance abuse, methadone dependence) Social Determinants Patient?s care significantly limited by Social Determinants of Health including: Other Social Determinant of Health Critical Care Time Critical Care Time Critical Care Time: No Discharge Plan Discharge Clinical Impression: Methadone dependence Patient Disposition: Home, Self-Care Instructions: Methadone (By mouth) Additional Instructions: You were seen in the emergency department for methadone dosing. We called and verified your last dose, which is methadone 160mg, which was last given 10/02/24. We have given you methadone 160 mg in the department today. Please follow-up with your methadone clinic tomorrow for additional dosing. If any new or worsening symptoms occur, including but not limited to chest pain or shortness a breath, please return for re-evaluation. Prescriptions: No Action chlorpromazine 25 mg Tablet 25 mg PO TID PRN (Reason: mild agitation) 30 Days Qty: 90 1RF clonidine HCl 0.1 mg tablet 0.1 mg PO TID@0900,1300,1700 30 Days Qty: 90 1RF atorvastatin 10 mg tablet 10 mg PO DAILY 30 Days Qty: 30 1RF baclofen 20 mg tablet 20 mg PO BID 30 Days Qty: 60 1RF paroxetine HCl 30 mg tablet 60 mg PO DAILY 30 Days Qty: 60 1RF nicotine 21 mg/24 hr patch 24 hour 1 patch topical DAILY PRN (Reason: nicotine cravings) 28 Days Qty: 28 0RF pramipexole 0.125 mg tablet 0.125 mg PO DAILY 30 Days Qty: 30 1RF nicotine (polacrilex) 2 mg lozenge 2 mg PO Q2H PRN (Reason: Nicotine Cravings) 30 Days Qty: 108 0RF Rx Instructions: DNE 20/DAY methadone [Methadose] 10 mg/mL concentrate 160 mg PO DAILY Rx Instructions: Partial Fill upon patient request. prazosin 2 mg capsule 6 mg PO BEDTIME quetiapine 100 mg tablet 100 mg PO BEDTIME gabapentin 800 mg Tablet 800 mg PO TID Print Language: Swedish
[2024-10-03] MEDS: methADONE HCl 20 MG/2 ML ORAL.CONC 160 MG PO (09:16)
[2024-10-03 09:21] VITALS: BP 121/67; PULSE 72; RESP 16; TEMP 36.1; O2SAT 97
--- OUTSIDE RECORDS SUMMARY | 2024-10-03 09:46 | XMS_ITS | Clinical Summary ---
Author Organization [facility] Address [address] [place] [address] Phone Care Team Providers Care Quartz Mounter Name Role Phone Physician, Pcp Unknown Primary [...] - 08/30/2024 3:01 PM EDT Hospital Encounter [facility]rology Unit [address] [place] [phone] Kolby Leon MD Seralathan, Manikandan, MD Non-traumatic rhabdomyolysis (Primary Dx); Suicidal ideation; Cocaine abuse ([facility] V24, [facility] V28); Opioid abuse ([facility] V24, [facility] V28) Discharge Disposition: Psychiatric Hospital from Last 3 Months Medical History Medical History Date Comments Substance abuse ([facility] V24, [facility] V28) Social History Tobacco Use Types [...] for your loved ones. For example, child support investigator or elderly care for an older adult? [...] is included. WBC 4.1(L) 4.8 - 10.8 K/[facility] LAB HEMETOLOGY METHOD 08/30/2024 7:47 AM [facility] RBC 3.30(L) 4.50 - 5.50 M/mcL LAB HEMETOLOGY METHOD 08/30/2024 7:47 AM [facility] Hemoglobin 9.1(L) 13.5 - 17.5 g/dL LAB HEMETOLOGY METHOD 08/30/2024 7:47 AM [facility] Hematocrit 29.8(L) 42.0 - 54.0 % LAB HEMETOLOGY METHOD 08/30/2024 7:47 AM [facility] MCV 89.2 79.0 - 98.0 FL LAB HEMETOLOGY METHOD 08/30/2024 7:47 AM [facility] MCH 27.2 27.0 - 32.0 pcg LAB HEMETOLOGY METHOD 08/30/2024 7:47 AM [facility] MCHC 30.5(L) 32.0 - 37.0 g/dL LAB HEMETOLOGY METHOD 08/30/2024 7:47 AM [facility] RDW 16.1(H) 11.0 - 15.0 % LAB HEMETOLOGY METHOD 08/30/2024 7:47 AM [facility] Platelets 170 130 - 400 K/mcL LAB HEMETOLOGY METHOD 08/30/2024 7:47 AM [facility] MPV 11.1(H) 7.0 - 11.0 FL LAB HEMETOLOGY METHOD 08/30/2024 7:47 AM [facility] NRBC 0.0 <1.0 % LAB HEMETOLOGY METHOD 08/30/2024 7:47 AM [facility] NRBC Absolute 0.00 <0.10 K/mcL LAB HEMETOLOGY METHOD 08/30/2024 7:47 AM [facility] Neutrophils Relative 26.2 % LAB HEMETOLOGY METHOD 08/30/2024 7:47 AM [facility] Lymphocytes Relative 52.3 % LAB HEMETOLOGY METHOD 08/30/2024 7:47 AM [facility] Monocytes Relative 10.9 % LAB HEMETOLOGY METHOD 08/30/2024 7:47 AM [facility] Eosinophils Relative 9.2 % LAB HEMETOLOGY METHOD 08/30/2024 7:47 AM [facility] Basophils Relative 1.2 % LAB HEMETOLOGY METHOD 08/30/2024 7:47 AM [facility] Immature Granulocytes Relative 0.2 % LAB HEMETOLOGY METHOD 08/30/2024 7:47 AM [facility] Neutrophils Absolute 1.08(L) 1.50 - 7.00 K/mcL LAB HEMETOLOGY METHOD 08/30/2024 7:47 AM [facility] Lymphocytes Absolute 2.16 1.00 - 5.00 K/mcL LAB HEMETOLOGY METHOD 08/30/2024 7:47 AM [facility] Monocytes Absolute 0.45 0.20 - 1.00 K/mcL LAB HEMETOLOGY METHOD 08/30/2024 7:47 AM [facility] Eosinophils Absolute 0.38 0.00 - 0.50 K/mcL LAB HEMETOLOGY METHOD 08/30/2024 7:47 AM [facility] Basophils Absolute 0.05 0.00 - 0.20 K/mcL LAB HEMETOLOGY METHOD 08/30/2024 7:47 AM [facility] Immature Granulocytes Absolute 0.01 0.00 - 0.03 K/mcL LAB HEMETOLOGY METHOD 08/30/2024 7:47 AM [facility] Blood Venous blood specimen / Unknown Venipuncture / Unknown 08/30/2024 7:19 AM EDT 08/30/2024 7:39 AM EDT us Audrey ANDERSON LAB BLOOD ORDERABLES Final Result Performing Organization Address [facility] Co de Phone Number [facility] [address] [place] [address], [place] [phone] * Magnesium (08/30/2024 7:19 AM EDT) [facility] Magnesium 2.0 1.9 - 2.6 mg/dL LAB CHEMISTRY METHOD 08/30/2024 8:35 AM EDT [facility] Blood Venous blood specimen / Unknown Venipuncture / Unknown 08/30/2024 7:19 AM EDT 08/30/2024 7:38 AM EDT us Audrey ANDERSON LAB BLOOD ORDERABLES Final Result Performing Organization Address [facility] de Phone Number [facility] [address] [place] [address], [place] [phone] * (ABNORMAL) Creatine kinase (08/30/2024 7:19 AM EDT) Only the most recent of3 resultswithin the time period is included. [facility] Total CK 1,758(H) 22 - 269 unit/L LAB CHEMISTRY METHOD 08/30/2024 8:35 AM EDT [facility] Blood Venous blood specimen / Unknown Venipuncture / Unknown 08/30/2024 7:19 AM EDT 08/30/2024 7:38 AM EDT us Audrey ANDERSON LAB BLOOD ORDERABLES Final Result Performing Organization Address [facility] Co de Phone Number [facility] [address] [place] [address], [place] [phone] * (ABNORMAL) Basic metabolic panel (08/30/2024 7:19 AM EDT) Sodium 139 133 - 145 mmol/L LAB CHEMISTRY METHOD 08/30/2024 8:35 AM [facility] Potassium 4.3 3.5 - 5.5 mmol/L LAB CHEMISTRY METHOD 08/30/2024 8:35 AM [facility] Comment:Hemolysis present Chloride 110 96 - 110 mmol/L LAB CHEMISTRY METHOD 08/30/2024 8:35 AM [facility] CO2 25 21 - 32 mmol/L LAB CHEMISTRY METHOD 08/30/2024 8:35 AM [facility] Anion Gap 4 3 - 11 LAB CHEMISTRY METHOD 08/30/2024 8:35 AM [facility] Glucose 106(H) 70 - 100 mg/dL LAB CHEMISTRY METHOD 08/30/2024 8:35 AM [facility] BUN 16 5 - 25 mg/dL LAB CHEMISTRY METHOD 08/30/2024 8:35 AM [facility] Creatinine 0.66(L) 0.70 - 1.30 mg/dL LAB CHEMISTRY METHOD 08/30/2024 8:35 AM [facility] eGFR 127 >=60 mL/min/1. 73m2 LAB CHEMISTRY METHOD 08/30/2024 8:35 AM [facility] Comment:Calculation based on the??Chronic Kidney Disease Epidemiology Collaboration (CKD-EPI) equation refit??without adjustment for race. BUN/Creatinine Ratio 24.2 LAB CHEMISTRY METHOD 08/30/2024 8:35 AM [facility] Calcium 8.0(L) 8.5 - 10.5 mg/dL LAB CHEMISTRY METHOD 08/30/2024 8:35 AM [facility] Blood Venous blood specimen / Unknown Venipuncture / Unknown 08/30/2024 7:19 AM EDT 08/30/2024 7:38 AM EDT Audrey ANDERSON LAB BLOOD ORDERABLES Final Result [facility] [address] [place] [address], * ECG-Annotated (08/30/2024) Provider Onbase ECG ORDERABLES Final Result * (ABNORMAL) Urinalysis with reflex microscopic and culture (08/29/2024 8:30 AM EDT) Specific [place] Urine 1.032(H) 1.003 - 1.030 LAB URINALYSIS - AUTOMATED METHOD 08/29/2024 8:43 AM [facility] pH, Urine 6.0 5.0 - 8.0 pH LAB URINALYSIS - AUTOMATED METHOD 08/29/2024 8:43 AM [facility] Leukocytes, Urine Negative Negative LAB URINALYSIS - AUTOMATED METHOD 08/29/2024 8:43 AM [facility] Nitrite, Urine Negative Negative LAB URINALYSIS - AUTOMATED METHOD 08/29/2024 8:43 AM [facility] Protein, Urine Trace <=Trace mg/dL LAB URINALYSIS - AUTOMATED METHOD 08/29/2024 8:43 AM [facility] Glucose, Urine Negative Negative mg/dL LAB URINALYSIS - AUTOMATED METHOD 08/29/2024 8:43 AM [facility] Ketones, Urine 15(A) Negative mg/dL LAB URINALYSIS - AUTOMATED METHOD 08/29/2024 8:43 AM [facility] Urobilinogen, Urine 1.0 0.2 - 1.0 mg/dL LAB URINALYSIS - AUTOMATED METHOD 08/29/2024 8:43 AM [facility] Bilirubin, Urine Negative Negative LAB URINALYSIS - AUTOMATED METHOD 08/29/2024 8:43 AM EDT [facility] Blood, Urine Negative Negative LAB URINALYSIS - AUTOMATED METHOD 08/29/2024 8:43 AM EDT [facility] Urine Urine specimen obtained by clean catch procedure / Unknown Non-blood Collection / Unknown 08/29/2024 8:30 AM EDT 08/29/2024 8:38 AM EDT [facility] LAB URINE ORDERABLES Final Resul t Performing Organization Address [facility] Co de Phone Number [facility] [address] [place] [address], [place] [phone] * [place] urine culture tube (08/29/2024 8:30 AM EDT) Extra Tube Hold for add-ons. 08/29/2024 10:02 AM EDT [facility] Comment:Auto resulted. Urine Urine specimen obtained by clean catch procedure / Unknown Non-blood Collection / Unknown 08/29/2024 8:30 AM EDT 08/29/2024 8:38 AM EDT [facility] LAB URINE ORDERABLES Final Resul t Performing Organization Address [facility] de Phone Number [facility] [address] [place] [address], [place] [phone] * (ABNORMAL) Drug abuse screen 8a panel, urine (08/29/2024 8:30 AM EDT) Amphetamine Screen, Ur Negative Negative LAB CHEMISTRY METHOD 5 9:18 AM EDT [facility] Comment:Certain OTC medicati ons containing ephedrine, phenylephrine, pseudoephedrine and phenylpropanolamine can cause false positive results. Barbiturate Screen, Ur Negative Negative LAB CHEMISTRY METHOD 5 9:18 AM EDT [facility] Benzodiazepine Screen, Ur Positive(A ) Negative LAB CHEMISTRY METHOD 5 9:18 AM EDT [facility] Cocaine Screen, Ur Positive(A ) Negative LAB CHEMISTRY METHOD 5 9:18 AM EDT [facility] Opiate Screen, Ur Negative Negative LAB CHEMISTRY METHOD 5 9:18 AM T [facility] Cannabinoid (THC) Screen, Ur Positive(A ) Negative LAB CHEMISTRY METHOD 5 9:18 AM EDT [facility] Comment:Specimens from patie nts taking pantoprazole sodium (Protonix) have been shown to produce false positive results. Oxycodone Screen, Ur Negative Negative LAB CHEMISTRY METHOD 5 9:18 AM T [facility] Fentanyl, Ur Positive(A ) Negative LAB CHEMISTRY METHOD 5 9:18 AM [facility] Urine Urine specimen obtained by clean catch procedure / Unknown Non-blood Collection / Unknown 08/29/2024 8:30 AM EDT 08/29/2024 8:38 AM EDT Narrative [facility] - 08/29/2024 9:18 AM EDT [...] MD LAB URINE ORDERABLES Final Res ult [facility] [address] [place] [address], [place] [phone] * Buprenorphine screen, urine (08/29/2024 8:30 AM EDT) [facility] Buprenorphine Screen Urine Negative Negative LAB CHEMISTRY METHOD 08/29/2024 9:02 AM EDT [facility] Urine Urine specimen obtained by clean catch procedure / Unknown Non-blood Collection / Unknown 08/29/2024 8:30 AM EDT 08/29/2024 8:38 AM EDT Narrative [facility] - 08/29/2024 9:02 AM EDT Assay cutoff 5 ng/mL Semi-quantitative assay for screening purposes only. Unconfirmed screening result should not be used for non-medical purposes. *ALTERNATE METHOD CONFIRMATION DONE UPON REQUEST ONLY* us Kolby Leon MD LAB URINE ORDERABLES Final Res ult Performing Organization Address City/[facility]/ZIP Co de Phone Number [facility] [address] [place] [address], [place] [phone] * (ABNORMAL) Methadone, urine (08/29/2024 8:30 AM EDT) [facility] Methadone Screen, Urine Positive (A) Negative LAB CHEMISTRY METHOD 08/29/2024 9:02 AM EDT [facility] Comment: Assay cutoff 300 ng/mL Semi-quantitative assay for screening purposes only. Unconfirmed screening result should not be used for non-medical purposes. *ALTERNATE METHOD CONFIRMATION DONE UPON REQUEST ONLY* Urine Urine specimen obtained by clean catch procedure / Unknown Non-blood Collection / Unknown 08/29/2024 8:30 AM EDT 08/29/2024 8:38 AM EDT us Kolby Leon MD LAB URINE ORDERABLES Final Res ult [facility] [address] [place] [address], [place] [phone] * Phencyclidine, urine (08/29/2024 8:30 AM EDT) PCP Scrn, Ur Negative Negative LAB CHEMISTRY METHOD 08/29/2024 9:02 AM EDT [facility] Comment: Assay cutoff 25 ng/mL Semi-quantitative assay for screening purposes only. Unconfirmed screening result should not be used for non-medical purposes. *ALTERNATE METHOD CONFIRMATION DONE UPON REQUEST ONLY* Urine Urine specimen obtained by clean catch procedure / Unknown Non-blood Collection / Unknown 08/29/2024 8:30 AM EDT 08/29/2024 8:38 AM EDT us Kolby Leon MD LAB URINE ORDERABLES Final Res ult [facility] [address] [place] [address], * (ABNORMAL) Comprehensive metabolic panel (08/29/2024 5:38 AM EDT) Only the most recent of2 resultswithin the time period is included. Sodium 140 133 - 145 mmol/L LAB CHEMISTRY METHOD 08/29/2024 6:20 AM [facility] Potassium 3.7 3.5 - 5.5 mmol/L LAB CHEMISTRY METHOD 08/29/2024 6:20 AM [facility] Chloride 110 96 - 110 mmol/L LAB CHEMISTRY METHOD 08/29/2024 6:20 AM [facility] CO2 25 21 - 32 mmol/L LAB CHEMISTRY METHOD 08/29/2024 6:20 AM [facility] Anion Gap 5 3 - 11 LAB CHEMISTRY METHOD 08/29/2024 6:20 AM [facility] Glucose 101(H) 70 - 100 mg/dL LAB CHEMISTRY METHOD 08/29/2024 6:20 AM [facility] BUN 30(H) 5 - 25 mg/dL LAB CHEMISTRY METHOD 08/29/2024 6:20 AM [facility] Creatinine 0.75 0.70 - 1.30 mg/dL LAB CHEMISTRY METHOD 08/29/2024 6:20 AM [facility] eGFR 122 >=60 mL/min/1. 73m2 LAB CHEMISTRY METHOD 08/29/2024 6:20 AM [facility] Comment:Calculation based on the??Chronic Kidney Disease Epidemiology Collaboration (CKD-EPI) equation refit??without adjustment for race. BUN/Creatinine Ratio 40.0 LAB CHEMISTRY METHOD 08/29/2024 6:20 AM [facility] Calcium 8.3(L) 8.5 - 10.5 mg/dL LAB CHEMISTRY METHOD 08/29/2024 6:20 AM [facility] AST (SGOT) 95(H) 10 - 42 unit/L LAB CHEMISTRY METHOD 08/29/2024 6:20 AM [facility] ALT (SGPT) 44 10 - 60 unit/L LAB CHEMISTRY METHOD 08/29/2024 6:20 AM [facility] Alkaline Phosphatase 59 42 - 121 unit/L LAB CHEMISTRY METHOD 08/29/2024 6:20 AM [facility] Total Protein 6.1 6.0 - 8.0 g/dL LAB CHEMISTRY METHOD 08/29/2024 6:20 AM [facility] Albumin 3.2 3.2 - 5.0 g/dL LAB CHEMISTRY METHOD 08/29/2024 6:20 AM [facility] Total Bilirubin 0.3 0.0 - 1.4 mg/dL LAB CHEMISTRY METHOD 08/29/2024 6:20 AM [facility] Blood Venous blood specimen / Unknown Venipuncture / Unknown 08/29/2024 5:38 AM EDT 08/29/2024 5:50 AM EDT Zulema ANDERSON LAB BLOOD ORDERABLES Fi nal Result Performing Organization Address [facility] Co de Phone Number [facility] [address] [place] [address], [place] [phone] * Troponin I high sensitivity (08/29/2024 3:26 AM EDT) Only the most recent of2 resultswithin the time period is included. [facility] High Sensitivity Troponin I 49 <=79 ng/L LAB CHEMISTRY METHOD 08/29/2024 4:01 AM EDT [facility] Blood Venous blood specimen / Unknown Venipuncture / Unknown 08/29/2024 3:26 AM EDT 08/29/2024 3:32 AM EDT Narrative [facility] - 08/29/2024 4:01 AM EDT High levels of biotin in samples may falsely decrease hsTroponin values. ??Use caution when interpreting hsTroponin results in patients taking biotin who exhibit renal impairment (eGFR <60) or in patients taking more than 20 mg/day of biotin. Jai Emery MD LAB BLOOD ORDERABLES Final Result Performing Organization Address [facility] de Phone Number [facility] [address] [place] [address], [place] [phone] * Ethanol (08/28/2024 11:11 PM EDT) [facility] Ethanol Level 5 0 - 10 mg/dL LAB CHEMISTRY METHOD 08/28/2024 11:49 PM EDT [facility] Blood Venous blood specimen / Unknown Venipuncture / Unknown 08/28/2024 11:11 PM EDT 08/28/2024 11:19 PM EDT Kolby Leon MD LAB BLOOD ORDERABLES Final Res ult Performing Organization Address [facility]/ZIP Co de Phone Number [facility] [address] [place] [address], [place] [phone] * (ABNORMAL) Acetaminophen level (08/28/2024 11:11 PM EDT) Acetaminophen Level <2.0(L) 10.0 - 30.0 mcg/mL LAB CHEMISTRY METHOD 08/28/2024 11:53 PM EDT [facility] Blood Venous blood specimen / Unknown Venipuncture / Unknown 08/28/2024 11:11 PM EDT 08/28/2024 11:19 PM EDT Kolby Leon MD LAB BLOOD ORDERABLES Final Res ult Performing Organization Address [facility]/State/ZIP Co de Phone Number [facility] [address] [place] [address], [place] [phone] * (ABNORMAL) Salicylate level (08/28/2024 11:11 PM EDT) Salicylate Level <1.7(L) 2.0 - 29.0 mg/dL LAB CHEMISTRY METHOD 08/28/2024 11:49 PM EDT [facility] Blood Venous blood specimen / Unknown Venipuncture / Unknown 08/28/2024 11:11 PM EDT 08/28/2024 11:19 PM EDT Kolby Leon MD LAB BLOOD ORDERABLES Final Res ult [facility] [address] [place] [address], [place] [phone] from Last 3 Months Insurance [facility] [employer] Advance Directives * Full Code [...] currently active code status orders. Care Teams Quartz Mounter Relationship Specialty Start Date End Date Physician, Pcp Unknown PCP - General 08/29/24
== END 2024-10-03 09:22 | disposition home or self-care (01) ==
PROVIDERS: Emergency Provider Emergency Medicine
DX: F11.20 Opioid dependence, uncomplicated (principal)
CPT/HCPCS: 99282; 99283

== ENCOUNTER 2024-10-14 11:20 | Emergency (ER) | payer OTHER, SELFPAY ==
[2024-10-14 11:22] VITALS: BP 132/85; PULSE 70; RESP 20; TEMP 36.6; O2SAT 98; BMI 30.7
--- NOTE | 2024-10-14 11:25 | ED.PSYCH ---
HPI - Psych General Chief Complaint: Psychiatric Symptoms Stated Complaint: suicidal thoughts Time Seen by Provider: 10/14/24 11:44 Source: patient Limitations: no limitations History of Present Illness HPI Narrative: 33-year-old male who has a history of PTSD, depression, polysubstance use, presents for evaluation of suicidal ideation. Patient states that he is increasingly depressed and is having thoughts of self-harm for approximately 1 week. He has thoughts to shoot himself and confirms that he has access to firearms. He denies any physical complaints at this time. He denies any homicidal ideation. No auditory or visual hallucinations. He denies any illicit drug use. Patient is currently on methadone 160 mg where he receives at [facility], with his last dose 2 days ago. He smokes tobacco. He denies any alcohol use. Related Data Home Medications ?Medication ?Instructions ?Recorded ?Confirmed methadone 10 mg/mL oral 160 mg PO DAILY 08/14/24 10/14/24 concentrate (Methadose) prazosin 2 mg capsule 6 mg PO BEDTIME 09/09/24 10/14/24 baclofen 20 mg tablet 20 mg PO BID 10/14/24 10/14/24 gabapentin 300 mg capsule 600 mg PO TID 10/14/24 10/14/24 hydroxyzine HCl 50 mg tablet 50 mg PO Q6H PRN Anxiety 10/14/24 10/14/24 nicotine 21 mg/24 hr daily 1 patch topical DAILY nicotine 10/14/24 10/14/24 transdermal patch cravings Previous Rx's ?Medication ?Instructions ?Recorded atorvastatin 10 mg tablet 10 mg PO DAILY 30 days #30 tabs 01/10/24 chlorpromazine 25 mg tablet 25 mg PO TID PRN mild agitation 30 01/10/24 days #90 tabs clonidine HCl 0.1 mg tablet 0.1 mg PO TID@0900,1300,1700 01/10/24 Anxiety 30 days #90 tabs nicotine (polacrilex) 2 mg buccal 2 mg PO Q2H PRN Nicotine Cravings 01/10/24 lozenge 30 days #108 ea paroxetine HCl 30 mg tablet 60 mg (2 x 30 mg) PO DAILY 30 days 01/10/24 #60 tabs pramipexole 0.125 mg tablet 0.125 mg PO DAILY 30 days #30 tabs 07/30/24 Allergies Allergy/AdvReac Type Severity Reaction Status Date / Time amoxicillin Allergy Hives Verified 10/14/24 11:26 Penicillins [PCN] Allergy Hives Verified 10/14/24 11:26 seafood Allergy Difficulty Verified 10/14/24 11:26 Breathing Review of Systems Constitutional: Constitutional: Denies chills and Denies fever(s) Cardiovascular: Cardiovascular: Denies chest pain, Denies palpitations, Denies dyspnea, Denies dyspnea on exertion and Denies orthopnea Respiratory: Respiratory: Denies cough, Denies dyspnea and Denies dyspnea on exertion Gastrointestinal: Gastrointestinal: Denies abdominal pain, Denies melena, Denies hematochezia, Denies diarrhea, Denies nausea and Denies vomiting Genitourinary: Genitourinary: Denies difficulty urinating, Denies dysuria and Denies urinary urgency Musculoskeletal: Musculoskeletal: Denies back pain, Denies muscle weakness and Denies numbness Integumentary/Breasts: Skin/Breast: Denies rash Neurologic: Denies focal weakness and Denies numbness Psychiatric: Psychiatric: Reports depression Endocrine: Endocrine: Denies palpitations PMFSH Past Medical History Medical History Polysubstance use disorder Opioid use disorder Depression Antisocial personality disorder Cocaine use disorder, moderate, dependence Benzodiazepine abuse MDD (major depressive disorder), recurrent, severe, with psychosis Alcohol use disorder Mood disorder PTSD (post-traumatic stress disorder) Polysubstance (including opioids) dependence, daily use Social History Social History Household Members: None Household Members Other:: homeless Housing: Homeless Do you presently have visiting nurse or other home services: No Unable to assess alcohol history related to: Unknown Alcohol intake: current Alcohol intake frequency: a few times a month Alcohol type: hard liquor Comment: Pt ambulates independently Patient Tobacco Use Status: Current everyday Tobacco user Tobacco use type: Cigarette Cigarette Packs Per Day: 1 Cigarettes Per Day: 5 Years Smoked: 20 Smoked in Last 30 Days: No e-Cigarette/Vaping Use: Never Used Second Hand Smoke Exposure: No Substance Use Type: Crack/Cocaine Advance Directives: No Advance Directives Information Provided: Yes service: No Current occupational status: unemployed Sexual orientation: Straight/Heterosexual Physical Exam Vital Signs: Vital Signs: Last Vital Signs Temp 98.2 F 10/15/24 17:33 Pulse 86 10/15/24 17:33 Resp 16 10/15/24 17:33 BP 131/72 10/15/24 17:33 Pulse Ox 99 10/15/24 17:33 O2 Del Method Room Air 10/15/24 17:33 BMI result Body Mass Index 30.7 Const: General: cooperative, alert and awake Resp: Auscultation: clear to auscultation bilaterally Cardio: Rate: regular rate Rhythm: regular rhythm Psych: Attitude: cooperative Thought content: Suicidality present and no homicidality Course Course Course Narrative: This is an RME: Additional HPI, ROS, PE not included below will be deferred to primary provider. RME assessment and note performed by: Beth Diaz PA-C This is a [id number], with past medical history of polysubstance use disorder on methadone, MDD, PTSD, DID, who presents to the ER with complaints of suicidal ideation. Reports that over the last week he has had worsening suicidal thoughts, plan to kill himself with a gun. He does have access to weapons at his home. Denies any recent increased stressors at home. He currently lives with his uncle who is aware of his worsening suicidal thoughts. He is established with [facility], has been taking all his medications. No recent alcohol or drug use. No HI. Recent inpatient stay which did help him a little bit. Currently on methadone, did not take his dose today. Goes to [place] - on methadone 160 mg last dose was 2 days ago. Plan: Labs, UA, care team, further ER eval needed Reevaluation(s) Reevaluation #1: October 14, 2024, 10:30 p.m. patient signed out in stable condition with placement pending. Time: 08:56 Date: 10/15/24 Provider: MONICA Izquierdo Patient in physician observation for psychiatric evaluation.? No acute events reported overnight. No current complaints. VS stable.? Patient was seen by the care team, recommending dual diagnosis admission for mental health and substance abuse. . Will continue to monitor pending placement. Medications Administered Discontinued Medications Generic Name Dose Route Start Last Admin Trade Name Freq PRN Reason Stop Dose Admin Atorvastatin Calcium 10 mg 10/15/24 09:00 10/15/24 09:34 Atorvastatin Calcium 10 Mg Tablet PO 10 mg DAILY BESSIE Administration Baclofen 20 mg 10/15/24 09:00 10/15/24 12:34 Baclofen 20 Mg Tablet PO Not Given BID BESSIE Clonidine HCl 0.1 mg 10/15/24 09:00 10/15/24 14:04 Clonidine Hcl 0.1 Mg Tablet PO 0.1 mg TID@0900,1300,1700 BESSIE Administration Protocol Gabapentin 600 mg 10/15/24 09:00 10/15/24 14:04 Gabapentin 300 Mg Capsule PO 600 mg TID BESSIE Administration Methadone HCl 160 mg 10/14/24 12:24 10/14/24 13:51 Methadone Hcl 20 Mg/2 Ml Oral.Conc PO 10/14/24 12:25 160 mg ONCE ONE Administration Methadone HCl 160 mg 10/15/24 09:00 10/15/24 09:35 Methadone Hcl 20 Mg/2 Ml Oral.Conc PO 160 mg DAILY BESSIE Administration Nicotine 21 mg 10/15/24 09:00 10/15/24 09:40 Nicotine 21 Mg Patch.Td24 TRANSDERMA 21 mg DAILY BESSIE Administration Paroxetine HCl 60 mg 10/15/24 09:00 10/15/24 09:34 Paroxetine Hcl 30 Mg Tablet PO 60 mg DAILY BESSIE Administration Pramipexole Dihydrochloride 0.125 mg 10/15/24 09:00 10/15/24 09:34 Pramipexole Di-Hcl 0.125 Mg Tablet PO 0.125 mg DAILY BESSIE Administration Medical Decision Making Medical Decision Making [facility] Narrative: 33-year-old male who has a history of polysubstance use, presents with suicide ideation. He has an established relationship with [facility]. Patient methadone dose confirmed by nursing, we will order dose now. Patient will be seen by team. Differential Diagnosis Differential Diagnoses: The differential diagnosis associated with the presentation includes Depression Bipolar PTSD Psychosis Anxiety Polysubstance use Lab Data [facility] Lab Attestation statement: I reviewed the patient's lab results. 10/14/24 12:28 10/14/24 12:28 Labs: Lab Results 10/14/24 10/14/24 Range/Units 12:28 22:19 WBC 8.4 (4.8-10.8) X10*3/uL RBC 5.22 (4.60-5.80) X10*6/uL Hgb 14.5 (14.0-18.0) g/dl Hct 43.1 (42.0-52.0) % MCV 82.6 (80.0-98.0) fL MCH 27.8 (27.0-33.0) pg MCHC 33.6 (31.0-36.0) g/dl RDW 13.8 (11.0-16.0) % Plt Count 237 (160-400) X10*3/uL MPV 11.0 (9.4-12.4) fL Immature Gran % (Auto) 0.7 H (0.0-0.4) % Neut % (Auto) 74.1 H (45-73) % Lymph % (Auto) 17.3 L (20-40) % Swift % (Auto) 6.1 (2-11) % Eos % (Auto) 1.2 (0-4) % Baso % (Auto) 0.6 (0-2) % Lymph # (Auto) 1.5 (1.2-4.9) X10*3/uL [place] # (Auto) 0.5 (0.1-1.2) X10*3/uL Eos # (Auto) 0.1 (0.0-0.4) X10*3/uL Baso # (Auto) 0.1 (0.0-0.2) X10*3/uL Abs Immat Gran (auto) 0.06 H (0.00-0.03) X10*3/uL Absolute Neuts (auto) 6.2 (2.0-8.3) x10*3/uL Absolute Nucleated RBC 0.000 (0.0-0.012) X10*3/uL Nucleated RBC % (auto) 0.0 (0.0-0.2) /100WBC Smear Tech's Comments VERIFIED Sodium 141 (135-145) mmol/L Potassium 3.8 (3.3-5.1) mmol/L Chloride 103 (96-108) mmol/L Carbon Dioxide 24 (22-29) mmol/L Anion Gap 18 (12-20) BUN 30 H (9-16) mg/dL Creatinine 0.81 (0.5-1.4) mg/dL Estim Creat Clear Calc 151.6 Estimated GFR > 60 Random Glucose 129 H (60-115) mg/dL Calcium 10.1 D (8.4-10.2) mg/dL Total Bilirubin 0.8 (0.0-1.0) mg/dL AST 65 H (5-37) U/L ALT 36 (0-40) U/L Alkaline Phosphatase 79 (39-117) U/L Total Protein 8.9 H (6.5-8.0) g/dL Albumin 5.4 H (3.5-5.0) g/dL Urine Color Yellow Urine Appearance Clear Urine pH 6.5 (5.0-9.0) Ur Specific [place] >= 1.030 H (1.005-1.025) Urine Protein 30 (1+) H (Neg-Trace) mg/dL Urine Glucose (UA) Negative (Negative) mg/dL Urine Ketones Trace (Negative) mg/dL Urine Blood Negative (Negative) Urine Nitrite Negative (Negative) Ur Leukocyte Esterase Negative (Negative) Urine RBC 0-2 (0-2) /HPF Urine WBC 0-5 (0-5) /HPF Ur Squamous Epith Cells 0-2 (0-2) /HPF Urine Bacteria None Seen (None Seen) Hyaline Casts 0-2 (0-2) /LPF Salicylates < 5.0 L (15-30) mg/dL Urine Opiates Screen Not Detected (Not Detect) Ur Buprenorphine Scrn Not Detected (Not Detect) ng/mL Ur Oxycodone Screen Not Detected (Not Detect) ng/mL Urine Methadone Screen Positive H (Not Detect) ng/mL Urine Fentanyl Screen POSITIVE H (Not Detect) Acetaminophen < 3 (<30) mcg/mL Ur Barbiturates Screen POSITIVE H (Not Detect) Ur Phencyclidine Scrn Not Detected (Not Detect) Ur Amphetamines Screen Not Detected (Not Detect) U Benzodiazepines Scrn POSITIVE H (Not Detect) Urine Cocaine Screen POSITIVE H (Not Detect) U Marijuana (THC) Screen POSITIVE H (Not Detect) Ethyl Alcohol < 10 mg/dL COVID-19 (JAMIE) Negative (Negative) COVID-19 Clin Com See Note Discharge Plan Discharge Clinical Impression: Suicidal ideation Patient Disposition: Xfer Psychiatric Hosp Transfer Details: TO [facility] Prescriptions: No Action chlorpromazine 25 mg Tablet 25 mg PO TID PRN (Reason: mild agitation) 30 Days Qty: 90 1RF clonidine HCl 0.1 mg tablet 0.1 mg PO TID@0900,1300,1700 30 Days Qty: 90 1RF atorvastatin 10 mg tablet 10 mg PO DAILY 30 Days Qty: 30 1RF paroxetine HCl 30 mg tablet 60 mg PO DAILY 30 Days Qty: 60 1RF pramipexole 0.125 mg tablet 0.125 mg PO DAILY 30 Days Qty: 30 1RF nicotine (polacrilex) 2 mg lozenge 2 mg PO Q2H PRN (Reason: Nicotine Cravings) 30 Days Qty: 108 0RF Rx Instructions: DNE 20/DAY methadone [Methadose] 10 mg/mL concentrate 160 mg PO DAILY Rx Instructions: Partial Fill upon patient request. prazosin 2 mg capsule 6 mg PO BEDTIME hydroxyzine HCl 50 mg tablet 50 mg PO Q6H PRN (Reason: Anxiety) gabapentin 300 mg capsule 600 mg PO TID baclofen 20 mg tablet 20 mg PO BID nicotine 21 mg/24 hr patch 24 hour 1 patch topical DAILY Interventions: [place]-Suicide Risk Severity Scale Last Done: 10/15/24 17:29 Acute Care Transfer Worksheet (ED) Last Done: 10/15/24 17:33 Discharge Date/Time: 10/15/24 17:35 Print Language: [place]
[2024-10-14 12:50] LABS: Basophils Absolute Auto 0.1 X10*3/uL (0.0-0.2); Basophils Percent Auto 0.6 % (0-2); Imm Gran Abs Auto 0.06 X10*3/uL (0.00-0.03); Imm Gran Pct Auto 0.7 % (0.0-0.4); MANUAL DIFF FLAG SCAN; PLT CLUMP 1; SCAN SMEAR FLAG 1
[2024-10-14 12:52] LABS: Eosinophils Absolute Auto 0.1 X10*3/uL (0.0-0.4); Eosinophils Percent Auto 1.2 % (0-4); Hematocrit 43.1 % (42.0-52.0); Hemoglobin 14.5 g/dl (14.0-18.0); Lymphocytes Absolute Auto 1.5 X10*3/uL (1.2-4.9); Lymphocytes Percent Auto 17.3 % (20-40); Mean Corpuscular HGB Conc 33.6 g/dl (31.0-36.0); Mean Corpuscular Hemoglobin 27.8 pg (27.0-33.0); Mean Corpuscular Volume 82.6 fL (80.0-98.0); Monocytes Absolute Auto 0.5 X10*3/uL (0.1-1.2); Monocytes Percent Auto 6.1 % (2-11); Neutrophils Absolute Auto 6.2 x10*3/uL (2.0-8.3); Neutrophils Percent Auto 74.1 % (45-73); Red Blood Count 5.22 X10*6/uL (4.60-5.80); Red Cell Distribution Width 13.8 % (11.0-16.0)
[2024-10-14 12:54] LABS: COVID-19 Test Negative (Negative); IDNOW Serial# 58CA691E
[2024-10-14 13:08] LABS: Acetaminophen LAB < 3 mcg/mL (<30); Alanine Aminotransferase 36 U/L (0-40); Albumin Level 5.4 g/dL (3.5-5.0); Alkaline Phosphatase 79 U/L (39-117); Anion Gap 18 (12-20); Aspartate Amino Transferase 65 U/L (5-37); Bilirubin Total 0.8 mg/dL (0.0-1.0); Blood Urea Nitrogen 30 mg/dL (9-16); Calcium 10.1 mg/dL (8.4-10.2); Carbon Dioxide 24 mmol/L (22-29); Chloride 103 mmol/L (96-108); Creatinine Clr Calc Pharmacy 151.6; Estimated Glomerular Filt Rate > 60; Ethanol < 10 mg/dL; Glucose Random 129 mg/dL (60-115); Platelet Count 237 X10*3/uL (160-400); Potassium 3.8 mmol/L (3.3-5.1); Salicylate < 5.0 mg/dL (15-30); Sodium 141 mmol/L (135-145); Total Protein 8.9 g/dL (6.5-8.0); White Blood Count 8.4 X10*3/uL (4.8-10.8)
[2024-10-14 13:09] LABS: SLIDE REVIEW VERIFIED
--- NOTE | 2024-10-14 13:29 | HE.PHANOTE ---
RE: METHADONE DOSING Last dose of methadone 160 mg was given at [facility] [phone] on 10/12/24 @0823 per last dose letter from [place] signed by medical staff Alonso Kauffman.
[2024-10-14] MEDS: methADONE HCl 20 MG/2 ML ORAL.CONC 160 MG PO (13:51)
--- NOTE | 2024-10-14 14:49 | PHA.MEDREC ---
Addendum entered by Pratibha Torres RPh 10/14/24 15:21: [facility] reviewed Original Note: Pharmacy Consult ? Medication Reconciliation Pharmacy has completed the medication reconciliation. Spoke to pt to confirm meds. Per pt, no longer taking lurasidone and quetiapine (pt reports none of these working). Pt also reports taking baclofen 20 mg BID.
[2024-10-14 20:09] VITALS: BP 118/76; PULSE 62; RESP 16; TEMP 36.5; O2SAT 100
[2024-10-14 22:29] LABS: Appearance Urine Clear; Color Urine Yellow; Glucose Urine UA Negative (Negative); Leukocyte Esterase Urine Negative (Negative); Nitrite Urine Negative (Negative); PH 6.5 (5.0-9.0); Specific Gravity - Urine >= 1.030 (1.005-1.025); UMIC TRIGGER UA YES; Urine Blood Negative (Negative); Urine Ketones Trace mg/dL (Negative); Urine Protein 30 (1+) mg/dL (Neg-Trace)
[2024-10-14 22:34] LABS: Bacteria Urine None Seen (None Seen); Hyaline Casts Urine 0-2 /LPF (0-2); RBC Urine 0-2 /HPF (0-2); Squamous Epithelial Cell Urine 0-2 /HPF (0-2); WBC Urine 0-5 /HPF (0-5)
[2024-10-14 22:36] LABS: Amphetamine Screen Urine Not Detected (Not Detect); Barbiturates, Urine POSITIVE (Not Detect); Benzodiazepines Screen Urine POSITIVE (Not Detect); Buprenorphine Scr Not Detected (Not Detect); Cannabinoid Screen Urine POSITIVE (Not Detect); Cocaine Screen Urine POSITIVE (Not Detect); Fentanyl, urine POSITIVE (Not Detect); Methadone Screen, Urine Positive (Not Detect); Opiate Screen Urine Not Detected (Not Detect); Oxycodone Screen Urine Not Detected (Not Detect); Phencyclidine Screen Urine Not Detected (Not Detect)
--- NOTE | 2024-10-15 | ECG_ITS ---
Test Reason : pysch Blood Pressure : */* mmHG Vent. Rate : 64 BPM Atrial Rate : 64 BPM P-R Int : 164 ms QRS Dur : 80 ms QT Int : 418 ms P-R-T Axes : 44 54 42 degrees QTcB Int : 431 ms Normal sinus rhythm Normal ECG When compared with ECG of 30-Sep-2024 11:31, No significant change was found Referred By: Haroon Thornton Electronically Signed By: NIRANJAN GORDON
[2024-10-15 05:59] VITALS: RESP 16
--- NOTE | 2024-10-15 06:38 | PC.NURSE ---
Patient slept through the night, no distress observed/reported, 15 minutes safety check, no behavior and safety concerns, meds and meals compliant, disposition per care team is section-12 dual diagnosis bed search, will continue to monitor
--- NOTE | 2024-10-15 08:17 | MHC.EDTECH ---
this pct attempted to do EKG , patient refused because he wants to sleep and does not want to wake up . RN aware .
[2024-10-15 09:34] VITALS: BP 118/76
[2024-10-15] MEDS: cloNIDine HCL 0.1 MG TABLET PO ×2 (09:34→14:04)
[2024-10-15] MEDS: Pramipexole Di-HCL 0.125 MG TABLET PO (09:34)
[2024-10-15] MEDS: PARoxetine HCL 30 MG TABLET 60 MG PO (09:34)
[2024-10-15] MEDS: Atorvastatin Calcium 10 MG TABLET PO (09:34)
[2024-10-15] MEDS: Gabapentin 300 MG CAPSULE 600 MG PO ×2 (09:34→14:04)
[2024-10-15] MEDS: methADONE HCl 20 MG/2 ML ORAL.CONC 160 MG PO (09:35)
[2024-10-15] MEDS: Nicotine 21 MG PATCH.TD24 TRANSDERMA (09:40)
[2024-10-15 09:48] VITALS: BP 128/71; PULSE 69; RESP 18; TEMP 37.1; O2SAT 97
--- NOTE | 2024-10-15 11:24 | PC.NURSE ---
Pt calm/cooperative with care at this time; pt aware of planned transfer to [facility] at 1730 today; report via telephone to YOHAN Germain at [facility]
[2024-10-15 14:04] VITALS: BP 128/71
[2024-10-15 17:29] VITALS: BP 131/72; PULSE 86; RESP 16; TEMP 36.8; O2SAT 99
--- NOTE | 2024-10-15 17:30 | PC.NURSE ---
Pt remains calm/cooperative; vss; pt aware of planned transfer to [facility]
[2024-10-15 17:33] VITALS: BP 131/72; PULSE 86; RESP 16; TEMP 36.8; O2SAT 99
== END 2024-10-15 17:35 ==
PROVIDERS: Physician Assistant Medical; Emergency Provider Emergency Medicine
DX: F33.1 Major depressive disorder, recurrent, moderate (principal); R45.851 Suicidal ideations; Z79.899 Other long term (current) drug therapy; F17.210 Nicotine dependence, cigarettes, uncomplicated; Z11.52 Encounter for screening for COVID-19
CPT/HCPCS: 80053; 80143; 80179; 80307; 81001; 85025; 87635; 93005; 99285; S9485

== ENCOUNTER → 2024-10-15 08:36 | Outpatient (BNV) | payer OTHER, SELFPAY | PROVIDERS: Emergency Provider Emergency Medicine; Visit Provider Internal Medicine | DX: R45.851 Suicidal ideations (principal) | CPT/HCPCS: 93010 ==

== ENCOUNTER 2024-11-04 10:27 | Emergency (ER) | payer OTHER, SELFPAY ==
[2024-11-04 11:15] VITALS: BP 109/61; PULSE 56; RESP 16; TEMP 36.3; O2SAT 100; BMI 30.4
--- NOTE | 2024-11-04 11:17 | ED_ITS ---
HPI - General Adult General Chief complaint: Psychiatric Symptoms Stated complaint: methadone Time Seen by Provider: 11/04/24 11:21 Source: patient Mode of arrival: ambulatory Limitations: no limitations History of Present Illness ED Provider: abhijeet camacho NP HPI narrative: Patient is a 33-year-old male who presents emergency department for evaluation. He is requesting assistance with his methadone dosing, reports he was last dosed on 11/02/2024 with methadone 150 mg through [facility], when asked he does endorses recreational cocaine usage no additional recreational drug or alcohol usage. He also endorses having suicidal ideations he does not provide any specific plan but he does admit to having access to weapons in his home. He states that last week his medications were changed from his prescriber [facility] because they just weren't working right , and has not felt well since then. Currently he offers no physical complaints, denies homicidal ideations. Related Data Home Medications ?Medication ?Instructions ?Recorded ?Confirmed methadone 10 mg/mL oral 150 mg PO DAILY 08/14/24 11/04/24 concentrate (Methadose) prazosin 2 mg capsule 6 mg PO BEDTIME 09/09/24 11/04/24 baclofen 20 mg tablet 20 mg PO BID 10/14/24 11/04/24 gabapentin 300 mg capsule 600 mg PO TID 10/14/24 11/04/24 hydroxyzine HCl 50 mg tablet 50 mg PO Q6H PRN Anxiety 10/14/24 11/04/24 nicotine 21 mg/24 hr daily 1 patch topical DAILY nicotine 10/14/24 11/04/24 transdermal patch cravings lurasidone 40 mg tablet 40 mg PO DAILY 11/04/24 11/04/24 trazodone 50 mg tablet 50 mg PO BEDTIME 11/04/24 11/04/24 Previous Rx's ?Medication ?Instructions ?Recorded atorvastatin 10 mg tablet 10 mg PO DAILY 30 days #30 tabs 01/10/24 chlorpromazine 25 mg tablet 25 mg PO TID PRN mild agitation 30 01/10/24 days #90 tabs clonidine HCl 0.1 mg tablet 0.1 mg PO TID@0900,1300,1700 01/10/24 Anxiety 30 days #90 tabs nicotine (polacrilex) 2 mg buccal 2 mg PO Q2H PRN Nicotine Cravings 01/10/24 lozenge 30 days #108 ea paroxetine HCl 30 mg tablet 60 mg (2 x 30 mg) PO DAILY 30 days 01/10/24 #60 tabs pramipexole 0.125 mg tablet 0.125 mg PO DAILY 30 days #30 tabs 01/10/24 Allergies Allergy/AdvReac Type Severity Reaction Status Date / Time amoxicillin Allergy Hives Verified 11/04/24 11:16 Penicillins [PCN] Allergy Hives Verified 11/04/24 11:16 seafood Allergy Difficulty Verified 11/04/24 11:16 Breathing Review of Systems 2 Review of Systems: Yes all other systems are reviewed and are negative PMFSH Past Medical History Attestation statement: The following information was validated with the patient. Source: old records reviewed Medical History Polysubstance use disorder Opioid use disorder Depression Antisocial personality disorder Cocaine use disorder, moderate, dependence Benzodiazepine abuse MDD (major depressive disorder), recurrent, severe, with psychosis Alcohol use disorder Mood disorder PTSD (post-traumatic stress disorder) Polysubstance (including opioids) dependence, daily use Social History Social History Household Members: None Household Members Other:: homeless Housing: Homeless Do you presently have visiting nurse or other home services: No Unable to assess alcohol history related to: Unknown Alcohol intake: current Alcohol intake frequency: a few times a month Alcohol type: hard liquor Comment: Pt ambulates independently Patient Tobacco Use Status: Current everyday Tobacco user Tobacco use type: Cigarette Cigarette Packs Per Day: 1 Cigarettes Per Day: 5 Years Smoked: 20 Smoked in Last 30 Days: No e-Cigarette/Vaping Use: Never Used Second Hand Smoke Exposure: No Use of substances other than those prescribed or required for medical reasons: Yes Substance Use Type: Heroin and IV Drugs Substance Use Frequency: Chronic Longstanding Advance Directives: No Advance Directives Information Provided: No service: No Current occupational status: unemployed Sexual orientation: Straight/Heterosexual Physical Exam ED Vital Signs: Vital Signs - 24 hr 11/05/24 18:09 11/05/24 20:33 11/06/24 06:00 Temperature 98.1 F Pulse Rate 92 52 Respiratory Rate 16 16 Blood Pressure 103/53 L 96/52 L Pulse Oximetry 99 97 Oxygen Delivery Method Room Air Room Air 11/06/24 08:15 Temperature Pulse Rate Respiratory Rate Blood Pressure 117/71 Pulse Oximetry Oxygen Delivery Method BMI result Body Mass Index 30.4 Appearance: Alert.?Oriented to person, place and time. No acute distress.?Normal affect. Eyes: Pupils equal, round and reactive to light.? ENT: Pharynx normal.?? Neck: Normal inspection.? Neck supple.?? CVS: Heart sounds normal. Normal heart rate and rhythm.? Pulses normal.?? Respiratory: No respiratory distress.? Lung sounds clear to auscultation bilaterally?? Abdomen: Soft and non-tender. Normoactive bowel sounds. ?? Skin: Skin warm and dry.? Normal skin color.? Extremities: No lower extremity edema.? Neuro: Moves all extremities spontaneously. Sensation intact bilaterally. CN II- XII intact. No focal neuro deficits. Ambulates with normal steady gait. Course Reevaluation(s) Reevaluation #1: 11/05/2024DR. Roberto's progress note: VSS, no issue reported by nursing overnight, care team input is appreciated, bed search is underway. Continue with physician observation. Time: 08:40 Reevaluation #2: 11/06/2024 DR. Roberto's progress note: VSS, no events reported by nursing overnight, care team input is appreciated, dual diagnosis bed search is underway, continue with physician observation. Time: 08:54 Reevaluation #3: 11/06/2024 DR. Roberto's progress note: Patient is AAO x3, was re-evaluated by care team, patient now feels safe to be discharged home, no SI, no HI, no hallucination. Time: 10:46 Medications Administered Discontinued Medications Generic Name Dose Route Start Last Admin Trade Name Freq PRN Reason Stop Dose Admin Atorvastatin Calcium 10 mg 11/04/24 09:00 11/06/24 08:15 Atorvastatin Calcium 10 Mg Tablet PO 10 mg DAILY BESSIE Administration Baclofen 20 mg 11/04/24 21:00 11/06/24 08:55 Baclofen 20 Mg Tablet PO 20 mg BID BESSIE Administration Clonidine HCl 0.1 mg 11/04/24 13:00 11/06/24 08:15 Clonidine Hcl 0.1 Mg Tablet PO 0.1 mg TID@0900,1300,1700 BESSIE Administration Protocol Gabapentin 600 mg 11/04/24 15:00 11/06/24 08:14 Gabapentin 300 Mg Capsule PO 600 mg TID BESSIE Administration Lurasidone HCl 40 mg 11/04/24 09:00 11/06/24 08:15 Lurasidone Hcl 40 Mg Tablet PO 40 mg DAILY BESSIE Administration Methadone HCl 150 mg 11/04/24 12:15 11/06/24 08:54 Methadone Hcl 20 Mg/2 Ml Oral.Conc PO 150 mg DAILY BESSIE Administration Nicotine 21 mg 11/04/24 12:40 11/06/24 08:14 Nicotine 21 Mg Patch.Td24 TRANSDERMA 21 mg DAILY BESSIE Administration Nicotine Polacrilex 2 mg 11/04/24 20:22 11/06/24 08:14 Nicotine Polacrilex 2 Mg Gum BUCCAL 2 mg Q2H PRN Administration Nicotine Cravings Paroxetine HCl 60 mg 11/04/24 12:40 11/06/24 08:15 Paroxetine Hcl 30 Mg Tablet PO 60 mg DAILY BESSIE Administration Pramipexole Dihydrochloride 0.125 mg 11/04/24 12:40 11/06/24 08:15 Pramipexole Di-Hcl 0.125 Mg Tablet PO 0.125 mg DAILY BESSIE Administration Prazosin HCl 6 mg 11/04/24 21:00 11/05/24 20:33 Prazosin Hcl 1 Mg Capsule PO 6 mg BEDTIME BESSIE Administration Protocol Trazodone HCl 50 mg 11/04/24 21:00 11/05/24 20:33 Trazodone Hcl 50 Mg Tablet PO 50 mg BEDTIME BESSIE Administration Medical Decision Making Medical Decision Making [facility] Narrative: Patient is a 33-year-old male with past medical history PTSD, depression, polysubstance use who presents emergency department for evaluation of suicidal ideations as per HPI as well as methadone dosing. He does not provide a specific plan but does report access to. He is calm and cooperative. He offers no physical complaints in his physical examination is benign. Will obtain serum labs for medical clearance and refer to care team for safe disposition planning, nursing staff to verify methadone dosing prior to dosage here today. Nursing staff was able to verify methadone dosing, in fact he was discharged from [facility] 11/02/2024 when he received his last dosing. Differential Diagnosis Differential Diagnoses: The differential diagnosis associated with the presentation includes (See narrative above and below for further detail) Admission/Observation Consideration of admission/observation: Escalation of care including admission/observation considered Patient is being observed in the Emergency Department for depression and suicidal ideas Observation time was started at 11:23 on 11/04/2024.?The patient is currently stable and non-toxic appearing. Observation is being initiated in the Emergency Department to allow time to help differentiate if the patient's depression and anxiety is due to Substance Induced Mood Disorder and Anxiety versus Major Depressive Disorder, Bipolar Melodie, Bipolar Depression, and Schizophrenia. The patient will receive frequent psychiatric assessments from the provider as well as from nursing staff. The patient will also be monitored for the need of PRN agitation medications such as Haldol, Ativan, and Benadryl. Consult Healthcare Provider Management of the patient was discussed with: Behavioral Health Provider (CARE team) Lab Data MDM Lab Attestation statement: I reviewed the patient's lab results. CBC is without leukocytosis, has a mild normocytic anemia that does not meet transfusion criteria, no thrombocytopenia. No electrolyte derangement. No RONA. LFTs unremarkable. Urinalysis is concentrated but no evidence of infection. Toxicology is positive for methadone, barbiturates, cocaine, and marijuana. Ethyl alcohol level nondetectable. 11/04/24 12:21 11/04/24 12:21 Labs: Lab Results 11/04/24 11/04/24 Range/Units 12:21 13:56 WBC 7.0 (4.8-10.8) X10*3/uL RBC 4.51 L (4.60-5.80) X10*6/uL Hgb 12.6 L (14.0-18.0) g/dl Hct 37.5 L (42.0-52.0) % MCV 83.1 (80.0-98.0) fL MCH 27.9 (27.0-33.0) pg MCHC 33.6 (31.0-36.0) g/dl RDW 13.7 (11.0-16.0) % Plt Count 232 (160-400) X10*3/uL MPV 10.3 (9.4-12.4) fL Immature Gran % (Auto) 0.1 (0.0-0.4) % Neut % (Auto) 73.6 H (45-73) % Lymph % (Auto) 18.8 L (20-40) % [place]atte % (Auto) 6.0 (2-11) % Eos % (Auto) 1.1 (0-4) % Baso % (Auto) 0.4 (0-2) % Lymph # (Auto) 1.3 (1.2-4.9) X10*3/uL [place] # (Auto) 0.4 (0.1-1.2) X10*3/uL Eos # (Auto) 0.1 (0.0-0.4) X10*3/uL Baso # (Auto) 0.0 (0.0-0.2) X10*3/uL Abs Immat Gran (auto) 0.01 (0.00-0.03) X10*3/uL Absolute Neuts (auto) 5.2 (2.0-8.3) x10*3/uL Absolute Nucleated RBC 0.000 (0.0-0.012) X10*3/uL Nucleated RBC % (auto) 0.0 (0.0-0.2) /100WBC Sodium 140 (135-145) mmol/L Potassium 4.1 (3.3-5.1) mmol/L Chloride 106 (96-108) mmol/L Carbon Dioxide 24 (22-29) mmol/L Anion Gap 14 (12-20) BUN 21 H (9-16) mg/dL Creatinine 0.79 (0.5-1.4) mg/dL Estim Creat Clear Calc 154.7 Estimated GFR > 60 Random Glucose 122 H (60-115) mg/dL Calcium 9.3 D (8.4-10.2) mg/dL Total Bilirubin 0.6 (0.0-1.0) mg/dL AST 28 (5-37) U/L ALT 20 (0-40) U/L Alkaline Phosphatase 63 (39-117) U/L Total Protein 7.2 (6.5-8.0) g/dL Albumin 4.4 (3.5-5.0) g/dL Urine Color Dark Yellow Urine Appearance Clear Urine pH 6.5 (5.0-9.0) Ur Specific Sharples >= 1.030 H (1.005-1.025) Urine Protein Trace (Neg-Trace) mg/dL Urine Glucose (UA) Negative (Negative) mg/dL Urine Ketones 40 (Negative) mg/dL Urine Blood Negative (Negative) Urine Nitrite Negative (Negative) Ur Leukocyte Esterase Negative (Negative) Salicylates < 5.0 L (15-30) mg/dL Urine Opiates Screen Not Detected (Not Detect) Ur Buprenorphine Scrn Not Detected (Not Detect) ng/mL Ur Oxycodone Screen Not Detected (Not Detect) ng/mL Urine Methadone Screen Positive H (Not Detect) ng/mL Urine Fentanyl Screen Not Detected (Not Detect) Acetaminophen < 3 (<30) mcg/mL Ur Barbiturates Screen POSITIVE H (Not Detect) Ur Phencyclidine Scrn Not Detected (Not Detect) Ur Amphetamines Screen Not Detected (Not Detect) U Benzodiazepines Scrn Not Detected (Not Detect) Urine Cocaine Screen POSITIVE H (Not Detect) U Marijuana (THC) Screen POSITIVE H (Not Detect) Ethyl Alcohol < 10 mg/dL External Record Review External record reviewed: Outpatient record Discharge Plan Discharge Clinical Impression: Anxiety, Substance abuse Patient Disposition: Home, Self-Care Instructions: Anxiety (ED) Prescriptions: No Action chlorpromazine 25 mg Tablet 25 mg PO TID PRN (Reason: mild agitation) 30 Days Qty: 90 1RF clonidine HCl 0.1 mg tablet 0.1 mg PO TID@0900,1300,1700 30 Days Qty: 90 1RF atorvastatin 10 mg tablet 10 mg PO DAILY 30 Days Qty: 30 1RF paroxetine HCl 30 mg tablet 60 mg PO DAILY 30 Days Qty: 60 1RF pramipexole 0.125 mg tablet 0.125 mg PO DAILY 30 Days Qty: 30 1RF nicotine (polacrilex) 2 mg lozenge 2 mg PO Q2H PRN (Reason: Nicotine Cravings) 30 Days Qty: 108 0RF Rx Instructions: DNE 20/DAY methadone [Methadose] 10 mg/mL concentrate 150 mg PO DAILY Rx Instructions: Partial Fill upon patient request. prazosin 2 mg capsule 6 mg PO BEDTIME trazodone 50 mg tablet 50 mg PO BEDTIME lurasidone 40 mg tablet 40 mg PO DAILY hydroxyzine HCl 50 mg tablet 50 mg PO Q6H PRN (Reason: Anxiety) gabapentin 300 mg capsule 600 mg PO TID baclofen 20 mg tablet 20 mg PO BID nicotine 21 mg/24 hr patch 24 hour 1 patch topical DAILY Interventions: Garden-Suicide Risk Severity Scale Last Done: 11/05/24 15:40 ED Discharge Assessment Last Done: 11/06/24 11:05 Discharge Date/Time: 11/06/24 11:06 Print Language: Estonian
[2024-11-04 11:44] VITALS: RESP 16
--- NOTE | 2024-11-04 11:59 | PC.NURSE ---
methadone verified by this RN, called [facility] unit. Pt was discharged two days [employer] and was dosed that day prior to d/c
--- NOTE | 2024-11-04 12:06 | HE.PHANOTE ---
METHADONE VERIFICATION FORM RECEIVED CLINIC IS [place], DOSE 150 MG, LAST DOSE 11/02/24 0983
[2024-11-04] MEDS: methADONE HCl 20 MG/2 ML ORAL.CONC 150 MG PO (12:13)
[2024-11-04 12:26] LABS: MANUAL DIFF FLAG NO
[2024-11-04 12:29] LABS: Basophils Percent Auto 0.4 % (0-2); Eosinophils Absolute Auto 0.1 X10*3/uL (0.0-0.4); Eosinophils Percent Auto 1.1 % (0-4); Hematocrit 37.5 % (42.0-52.0); Hemoglobin 12.6 g/dl (14.0-18.0); Imm Gran Abs Auto 0.01 X10*3/uL (0.00-0.03); Imm Gran Pct Auto 0.1 % (0.0-0.4); Lymphocytes Absolute Auto 1.3 X10*3/uL (1.2-4.9); Lymphocytes Percent Auto 18.8 % (20-40); Mean Corpuscular HGB Conc 33.6 g/dl (31.0-36.0); Mean Corpuscular Hemoglobin 27.9 pg (27.0-33.0); Mean Corpuscular Volume 83.1 fL (80.0-98.0); Mean Platelet Volume 10.3 fL (9.4-12.4); Monocytes Absolute Auto 0.4 X10*3/uL (0.1-1.2); Neutrophils Absolute Auto 5.2 x10*3/uL (2.0-8.3); Neutrophils Percent Auto 73.6 % (45-73); Platelet Count 232 X10*3/uL (160-400); Red Blood Count 4.51 X10*6/uL (4.60-5.80); Red Cell Distribution Width 13.7 % (11.0-16.0)
--- NOTE | 2024-11-04 12:34 | PC.NURSE ---
This RN completed med rec with previous medical record hx, patient verbal verification as well as confirmation from [place] [facility]
[2024-11-04 13:02] LABS: Acetaminophen LAB < 3 mcg/mL (<30); Alanine Aminotransferase 20 U/L (0-40); Albumin Level 4.4 g/dL (3.5-5.0); Alkaline Phosphatase 63 U/L (39-117); Anion Gap 14 (12-20); Aspartate Amino Transferase 28 U/L (5-37); Bilirubin Total 0.6 mg/dL (0.0-1.0); Blood Urea Nitrogen 21 mg/dL (9-16); Calcium 9.3 mg/dL (8.4-10.2); Carbon Dioxide 24 mmol/L (22-29); Chloride 106 mmol/L (96-108); Creatinine Clr Calc Pharmacy 154.7; Estimated Glomerular Filt Rate > 60; Ethanol < 10 mg/dL; Glucose Random 122 mg/dL (60-115); Potassium 4.1 mmol/L (3.3-5.1); Salicylate < 5.0 mg/dL (15-30); Sodium 140 mmol/L (135-145); Total Protein 7.2 g/dL (6.5-8.0)
[2024-11-04] MEDS: PARoxetine HCL 30 MG TABLET 60 MG PO (13:46)
[2024-11-04] MEDS: Nicotine 21 MG PATCH.TD24 TRANSDERMA (13:47)
[2024-11-04 14:04] LABS: Appearance Urine Clear; Color Urine Dark Yellow; Glucose Urine UA Negative (Negative); Leukocyte Esterase Urine Negative (Negative); Nitrite Urine Negative (Negative); PH 6.5 (5.0-9.0); Specific Gravity - Urine >= 1.030 (1.005-1.025); Urine Blood Negative (Negative); Urine Ketones 40 mg/dL (Negative); Urine Protein Trace mg/dL (Neg-Trace)
[2024-11-04 14:18] LABS: Amphetamine Screen Urine Not Detected (Not Detect); Barbiturates, Urine POSITIVE (Not Detect); Benzodiazepines Screen Urine Not Detected (Not Detect); Buprenorphine Scr Not Detected (Not Detect); Cannabinoid Screen Urine POSITIVE (Not Detect); Cocaine Screen Urine POSITIVE (Not Detect); Fentanyl, urine Not Detected (Not Detect); Methadone Screen, Urine Positive (Not Detect); Opiate Screen Urine Not Detected (Not Detect); Oxycodone Screen Urine Not Detected (Not Detect); Phencyclidine Screen Urine Not Detected (Not Detect)
[2024-11-04] MEDS: Pramipexole Di-HCL 0.125 MG TABLET PO (14:59)
[2024-11-04] MEDS: Gabapentin 300 MG CAPSULE 600 MG PO ×2 (14:59→20:36)
[2024-11-04] MEDS: cloNIDine HCL 0.1 MG TABLET PO (17:48)
--- NOTE | 2024-11-04 18:35 | MHC.EDTECH ---
Patient given dinner tray
--- NOTE | 2024-11-04 18:58 | PC.NURSE ---
patient appears to remain at rest at present respirations are even and unlabored patient appears in no distress
[2024-11-04 20:05] VITALS: BP 98/62; PULSE 62; RESP 20; TEMP 36.8; O2SAT 99
[2024-11-04 20:36] VITALS: BP 98/62
[2024-11-04] MEDS: Prazosin HCL 1 MG CAPSULE 6 MG PO (20:36)
[2024-11-04] MEDS: traZODone HCL 50 MG TABLET PO (20:36)
[2024-11-04] MEDS: Nicotine Polacrilex 2 MG GUM BUCCAL (20:36)
[2024-11-04] MEDS: Baclofen 20 MG TABLET PO (20:38)
--- NOTE | 2024-11-05 05:13 | PC.NURSE ---
patient seemingly has had few interruptions in sleep tonight]
[2024-11-05] MEDS: methADONE HCl 20 MG/2 ML ORAL.CONC 150 MG PO (07:59)
[2024-11-05] MEDS: Baclofen 20 MG TABLET PO ×2 (08:02→20:46)
[2024-11-05] MEDS: Atorvastatin Calcium 10 MG TABLET PO (08:02)
[2024-11-05] MEDS: cloNIDine HCL 0.1 MG TABLET PO ×2 (08:02→13:10)
[2024-11-05] MEDS: Gabapentin 300 MG CAPSULE 600 MG PO ×3 (08:02→20:33)
[2024-11-05] MEDS: PARoxetine HCL 30 MG TABLET 60 MG PO (08:02)
[2024-11-05] MEDS: Nicotine 21 MG PATCH.TD24 TRANSDERMA (08:03)
--- NOTE | 2024-11-05 08:23 | PC.NURSE ---
Assumed care of patient at 0645, patient appears to be in no apparent distress this am, calm and cooperative, offering no complaints to this RN, ate breakfast, took morning meds. Continue plan of care for dual dx bedsearch
[2024-11-05] MEDS: Pramipexole Di-HCL 0.125 MG TABLET PO (09:32)
[2024-11-05] MEDS: Lurasidone HCl 40 MG TABLET PO (09:32)
[2024-11-05 09:36] VITALS: BP 99/52; PULSE 82; RESP 15; TEMP 36.6; O2SAT 95
[2024-11-05] MEDS: Nicotine Polacrilex 2 MG GUM BUCCAL ×4 (10:52→21:26)
[2024-11-05 18:09] VITALS: PULSE 92; RESP 16; O2SAT 99
--- NOTE | 2024-11-05 18:21 | PC.NURSE ---
Pt had uneventful day, no apparent distress noted. Calm and cooperative. Patient aware of ongoing plan for dual dx bedsearch
[2024-11-05 20:33] VITALS: BP 103/53
[2024-11-05] MEDS: traZODone HCL 50 MG TABLET PO (20:33)
[2024-11-05] MEDS: Prazosin HCL 1 MG CAPSULE 6 MG PO (20:33)
--- NOTE | 2024-11-05 20:41 | PC.NURSE ---
vitals taken, pt medicated per mar, milk with ice given.
--- NOTE | 2024-11-05 21:27 | PC.NURSE ---
medicated per mar, sandwich given and milk.
[2024-11-06 06:00] VITALS: BP 96/52; PULSE 52; RESP 16; TEMP 36.7; O2SAT 97
[2024-11-06] MEDS: Gabapentin 300 MG CAPSULE 600 MG PO (08:14)
[2024-11-06] MEDS: Nicotine 21 MG PATCH.TD24 TRANSDERMA (08:14)
[2024-11-06] MEDS: Nicotine Polacrilex 2 MG GUM BUCCAL (08:14)
[2024-11-06 08:15] VITALS: BP 117/71
[2024-11-06] MEDS: PARoxetine HCL 30 MG TABLET 60 MG PO (08:15)
[2024-11-06] MEDS: Pramipexole Di-HCL 0.125 MG TABLET PO (08:15)
[2024-11-06] MEDS: Atorvastatin Calcium 10 MG TABLET PO (08:15)
[2024-11-06] MEDS: Lurasidone HCl 40 MG TABLET PO (08:15)
[2024-11-06] MEDS: cloNIDine HCL 0.1 MG TABLET PO (08:15)
[2024-11-06] MEDS: methADONE HCl 20 MG/2 ML ORAL.CONC 150 MG PO (08:54)
[2024-11-06] MEDS: Baclofen 20 MG TABLET PO (08:55)
[2024-11-06 11:05] VITALS: BP 117/71; PULSE 52; RESP 16; TEMP 36.7; O2SAT 97
== END 2024-11-06 11:06 | disposition home or self-care (01) ==
PROVIDERS: Nurse Practitioner Family; Emergency Provider Emergency Medicine
DX: F41.9 Anxiety disorder, unspecified (principal); F19.10 Other psychoactive substance abuse, uncomplicated; R45.851 Suicidal ideations; F11.20 Opioid dependence, uncomplicated; F14.20 Cocaine dependence, uncomplicated; F43.10 Post-traumatic stress disorder, unspecified; F33.3 Major depressive disorder, recurrent, severe with psychotic symptoms; F60.2 Antisocial personality disorder; F13.10 Sedative, hypnotic or anxiolytic abuse, uncomplicated; F17.210 Nicotine dependence, cigarettes, uncomplicated; Z79.899 Other long term (current) drug therapy
CPT/HCPCS: 36415; 80053; 80143; 80179; 80307; 81003; 85025; 99285; S9485

== ENCOUNTER 2024-11-24 13:23 | Emergency (ER) | payer OTHER, SELFPAY ==
[2024-11-24 13:28] VITALS: BP 104/61; PULSE 73; RESP 18; TEMP 36.1; O2SAT 96; BMI 28.3
--- NOTE | 2024-11-24 13:29 | ED.PSYCH ---
HPI - Psych General Chief Complaint: Psychiatric Symptoms Stated Complaint: SI Time Seen by Provider: 11/24/24 13:36 Source: patient and old records reviewed Mode of arrival: ambulatory Limitations: no limitations History of Present Illness ED Provider: PAM PARKER Narrative: 33 yo male with PMH of PTSD, polysubstance abuse disorder, MDD, mood disorder who reports he is compliant with his medications. He reports worsening SI and he has access to his uncles guns. He would use them to kill himself. He denies any medical concerns. He has not harmed himself. He tells me he has no drug use right now. MD complaint: suicidal ideation and feels depressed Onset (ago): week(s) Duration: getting worse History of same: Yes Relieving factors: none Exacerbating factors: other Context: significant life stressor Associated psychiatric symptoms: depression and suicidal ideation Associated symptoms: denies other symptoms Treatments prior to arrival: placed on mental health hold If self harm: admits thoughts of self harm and has plan Related Data Home Medications ?Medication ?Instructions ?Recorded ?Confirmed methadone 10 mg/mL oral 150 mg PO DAILY 08/14/24 11/24/24 concentrate (Methadose) prazosin 2 mg capsule 6 mg PO BEDTIME 09/09/24 11/24/24 baclofen 20 mg tablet 20 mg PO BID 10/14/24 11/24/24 gabapentin 300 mg capsule 600 mg PO TID 10/14/24 11/24/24 hydroxyzine HCl 50 mg tablet 50 mg PO Q6H PRN Anxiety 10/14/24 11/24/24 nicotine 21 mg/24 hr daily 1 patch topical DAILY nicotine 10/14/24 11/24/24 transdermal patch cravings lurasidone 40 mg tablet 40 mg PO DAILY 11/04/24 11/24/24 trazodone 50 mg tablet 50 mg PO BEDTIME 11/04/24 11/24/24 Previous Rx's ?Medication ?Instructions ?Recorded chlorpromazine 25 mg tablet 25 mg PO TID PRN mild agitation 30 01/10/24 days #90 tabs nicotine (polacrilex) 2 mg buccal 2 mg PO Q2H PRN Nicotine Cravings 01/10/24 lozenge 30 days #108 ea paroxetine HCl 30 mg tablet 60 mg (2 x 30 mg) PO DAILY 30 days 01/10/24 #60 tabs Allergies Allergy/AdvReac Type Severity Reaction Status Date / Time amoxicillin Allergy Hives Verified 11/24/24 13:30 Penicillins [PCN] Allergy Hives Verified 11/24/24 13:30 seafood Allergy Difficulty Verified 11/24/24 13:30 Breathing Review of Systems Review of Systems: Constitutional : No Fever, No Chills ENT/Mouth : No Ear Pain, No Nasal Congestion, No sore throat Eyes: No Eye Pain, No Swelling, No Redness Cardiovascular : No Chest Pain, No SOB Respiratory : No Cough, No Sputum, No Dyspnea Gastrointestinal : No Nausea, No Vomiting, No Diarrhea, No Hematochezia, No Melena Genitourinary : No Dysuria, No Urinary Frequency, No Hematuria Musculoskeletal : No Myalgias Skin : No Skin Lesions, No rash Neuro : No Weakness, No Numbness, No Paresthesias, No Dizziness, No Headache Psych : positive Anxiety, positive Depression, positive SI no HI All other systems reviewed and are negative PMFSH Past Medical History Attestation statement: The following information was validated with the patient. Source: old records reviewed Medical History Polysubstance use disorder Opioid use disorder Depression Antisocial personality disorder Cocaine use disorder, moderate, dependence Benzodiazepine abuse MDD (major depressive disorder), recurrent, severe, with psychosis Alcohol use disorder Mood disorder PTSD (post-traumatic stress disorder) Polysubstance (including opioids) dependence, daily use Social History Social History Household Members: None Household Members Other:: homeless Housing: Homeless Do you presently have visiting nurse or other home services: No Unable to assess alcohol history related to: Unknown Alcohol intake: current Alcohol intake frequency: a few times a month Alcohol type: hard liquor Comment: Pt ambulates independently Patient Tobacco Use Status: Current everyday Tobacco user Tobacco use type: Cigarette Cigarette Packs Per Day: 1 Cigarettes Per Day: 5 Years Smoked: 20 e-Cigarette/Vaping Use: Never Used Second Hand Smoke Exposure: No Use of substances other than those prescribed or required for medical reasons: Yes Substance Use Type: Heroin and IV Drugs Advance Directives: No Advance Directives Information Provided: No service: No Current occupational status: unemployed Sexual orientation: Straight/Heterosexual Physical Exam Vital Signs: Vital Signs: Last Vital Signs Temp 97.8 F 11/25/24 20:44 Pulse 66 11/25/24 20:44 Resp 16 11/25/24 20:44 BP 107/62 11/25/24 20:44 Pulse Ox 95 11/25/24 20:44 O2 Del Method Room Air 11/25/24 20:44 BMI result Body Mass Index 28.3 Appearance: Alert. Oriented X3. No acute distress. Eyes: Pupils equal, round and reactive to light. ENT: Pharynx normal. Neck: Normal inspection. Neck supple. CVS: Normal heart rate and rhythm. Pulses normal. Respiratory: No respiratory distress. Breath sounds normal. Abdomen: Soft and nontender. Skin: Skin warm and dry. Normal skin color. Normal skin turgor. Extremities: No lower extremity edema. No calf ttp Neuro: Oriented X 3. No motor deficit. No sensory deficit. CN2-12 intact Course Course Course Narrative: This is a rapid medical exam performed by Yasir Da Silva NP: Additional HPI, ROS, PE not included below will be deferred to primary provider. Patient is a 33-year-old male with history of MDD, PTSD, antisocial personality disorder, polysubstance use disorder presenting with complaint of suicidal ideation for the past 3 days. Has access to his uncle's firearms where he is living. Denies HI. Denies physical complaints. Plan: med clearance, then CARE team eval Reevaluation(s) Reevaluation #1: 11/25/24: DR. Roberto's progress note: Patient in physician observation for psychiatric evaluation.? No acute events reported overnight. No current complaints. VS stable.? Patient To be re-evaluated tomorrow by care team for persistent SI. Will continue to monitor. Time: 08:20 Reevaluation #2: Time: 06:09 Date: 11/26/24 Provider: Kevin Jo MD Patient in physician observation for psychiatric evaluation and has been in the emergency department for around 40 hours. The patient was evaluated by the care team and I did review their assessment. The clinician who evaluated the patient felt that the patient did not meet inpatient level of care and the patient has had similar presentations in the past complaining of SI possibly for secondary gain (patient is homeless and needed senior living and food). Plan was to keep the patient in the emergency department overnight and to re-evaluate him in the morning to determine a disposition. No reported incidents on the patient by over night nursing staff. VS stable. Will continue to monitor. Reevaluation #3: Time: 07:30 Date: 11/26/24 Provider: Kevin Jo MD Physician observation ended at 07:30 hours. Patient was re-evaluated this morning by care team who felt that the patient was safe to be discharged instructions and discharged. Medications Administered Generic Name Dose Route Start Last Admin Trade Name Freq PRN Reason Stop Dose Admin Baclofen 20 mg 11/24/24 21:00 11/25/24 20:46 Baclofen 20 Mg Tablet PO 20 mg BID BESSIE Administration Gabapentin 600 mg 11/24/24 15:45 11/25/24 20:46 Gabapentin 300 Mg Capsule PO 600 mg TID BESSIE Administration Lurasidone HCl 40 mg 11/24/24 15:45 11/25/24 08:16 Lurasidone Hcl 40 Mg Tablet PO 40 mg DAILY BESSIE Administration Methadone HCl 150 mg 11/24/24 15:45 11/25/24 08:16 Methadone Hcl 20 Mg/2 Ml Oral.Conc PO 150 mg DAILY BESSIE Administration Nicotine 21 mg 11/24/24 15:45 11/25/24 08:16 Nicotine 21 Mg Patch.Td24 TRANSDERMA 21 mg DAILY BESSIE Administration Nicotine Polacrilex 2 mg 11/24/24 15:40 11/25/24 23:55 Nicotine Polacrilex Lozenge 2 Mg Lozenge BUCCAL 2 mg Q2H PRN Administration Nicotine Cravings Paroxetine HCl 60 mg 11/24/24 15:45 11/25/24 08:16 Paroxetine Hcl 30 Mg Tablet PO 60 mg DAILY BESSIE Administration Prazosin HCl 6 mg 11/24/24 21:00 11/25/24 20:46 Prazosin Hcl 1 Mg Capsule PO 6 mg BEDTIME BESSIE Administration Protocol Trazodone HCl 50 mg 11/24/24 21:00 11/25/24 20:46 Trazodone Hcl 50 Mg Tablet PO 50 mg BEDTIME BESSIE Administration Medical Decision Making Medical Decision Making MDM Narrative: 33 yo male with PMH of PTSD, polysubstance abuse disorder, MDD, mood disorder no here with SI and plan to use firearms. At this time will obtain labs and refer to CARE team. Given his SI and plan I did sign a section 12. Differential Diagnosis Differential Diagnoses: The differential diagnosis associated with the presentation includes SI, depression Admission/Observation Consideration of admission/observation: Escalation of care including admission/observation considered physician observation started at 2pm pending CARE team Consult Healthcare Provider Management of the patient was discussed with: Behavioral Health Provider Lab Data [facility] Lab Attestation statement: I reviewed the patient's lab results. 11/24/24 13:50 11/24/24 13:50 Labs: Lab Results 11/24/24 Range/Units 13:50 WBC 5.3 (4.8-10.8) X10*3/uL RBC 4.64 (4.60-5.80) X10*6/uL Hgb 13.0 L (14.0-18.0) g/dl Hct 37.9 L (42.0-52.0) % MCV 81.7 (80.0-98.0) fL MCH 28.0 (27.0-33.0) pg MCHC 34.3 (31.0-36.0) g/dl RDW 14.3 (11.0-16.0) % Plt Count 242 (160-400) X10*3/uL MPV 11.2 (9.4-12.4) fL Immature Gran % (Auto) 0.4 (0.0-0.4) % Neut % (Auto) 54.4 (45-73) % Lymph % (Auto) 28.2 (20-40) % [place] % (Auto) 10.3 (2-11) % Eos % (Auto) 6.3 H (0-4) % Baso % (Auto) 0.4 (0-2) % Lymph # (Auto) 1.5 (1.2-4.9) X10*3/uL [place] # (Auto) 0.5 (0.1-1.2) X10*3/uL Eos # (Auto) 0.3 (0.0-0.4) X10*3/uL Baso # (Auto) 0.0 (0.0-0.2) X10*3/uL Abs Immat Gran (auto) 0.02 (0.00-0.03) X10*3/uL Absolute Neuts (auto) 2.9 (2.0-8.3) x10*3/uL Absolute Nucleated RBC 0.000 (0.0-0.012) X10*3/uL Nucleated RBC % (auto) 0.0 (0.0-0.2) /100WBC Sodium 142 (135-145) mmol/L Potassium 3.8 (3.3-5.1) mmol/L Chloride 109 H (96-108) mmol/L Carbon Dioxide 26 (22-29) mmol/L Anion Gap 11 L (12-20) BUN 14 (9-16) mg/dL Creatinine 0.74 (0.5-1.4) mg/dL Estim Creat Clear Calc 159.7 Estimated GFR > 60 Random Glucose 105 (60-115) mg/dL Calcium 9.7 (8.4-10.2) mg/dL Total Bilirubin 0.5 (0.0-1.0) mg/dL AST 29 (5-37) U/L ALT 24 (0-40) U/L Alkaline Phosphatase 73 (39-117) U/L Total Protein 7.0 (6.5-8.0) g/dL Albumin 4.6 (3.5-5.0) g/dL Urine Color Dark Yellow Urine Appearance Cloudy Urine pH 6.0 (5.0-9.0) Ur Specific Novelty >= 1.030 H (1.005-1.025) Urine Protein 30 (1+) H (Neg-Trace) mg/dL Urine Glucose (UA) Negative (Negative) mg/dL Urine Ketones Trace (Negative) mg/dL Urine Blood Negative (Negative) Urine Nitrite Negative (Negative) Ur Leukocyte Esterase Negative (Negative) Urine RBC 0-2 (0-2) /HPF Urine WBC 0-5 (0-5) /HPF Ur Squamous Epith Cells 0-2 (0-2) /HPF Urine Bacteria None Seen (None Seen) Hyaline Casts 3-5 (0-2) /LPF Urine Opiates Screen Not Detected (Not Detect) Ur Buprenorphine Scrn Not Detected (Not Detect) ng/mL Ur Oxycodone Screen Not Detected (Not Detect) ng/mL Urine Methadone Screen Positive H (Not Detect) ng/mL Urine Fentanyl Screen POSITIVE H (Not Detect) Ur Barbiturates Screen POSITIVE H (Not Detect) Ur Phencyclidine Scrn Not Detected (Not Detect) Ur Amphetamines Screen Not Detected (Not Detect) U Benzodiazepines Scrn Not Detected (Not Detect) Urine Cocaine Screen POSITIVE H (Not Detect) U Marijuana (THC) Screen POSITIVE H (Not Detect) Ethyl Alcohol < 10 mg/dL Influenza Type A (PCR) NEGATIVE (Negative) Influenza Type B (PCR) NEGATIVE (Negative) RSV RNA Qual (PCR) NEGATIVE (Negative) SARS-CoV-2 RNA (RT-PCR) NEGATIVE (Negative) Independent Interpretation I performed an independent interpretation of an: EKG Interpretation: Rate: 48 Rhythm: sinus bradycardia [place]: normal Normal P waves. Normal CAR. Normal QRS complex. ST T wave : normal no MAIRA qTC: 419 prior studies: no acute ischemia The study has been interpreted contemporaneously by me. . External Record Review External record reviewed: Inpatient record Social Determinants Patient?s care significantly limited by Social Determinants of Health including: Problems related to primary support group Discharge Plan Discharge Clinical Impression: Suicidal ideation Patient Disposition: Home, Self-Care Additional Instructions: You were seen in our Emergency Department today for treatment of a behavioral health issue. It is important after your visit that you follow up with either your behavioral health provider or a primary care doctor within 7 days.? Please follow the care team instructions Continue taking your medications as prescribed by your outpatient providers If you have trouble finding a therapist you can reach out to [address] [phone] The National Suicide and Crisis Lifeline can be reached 7 days a week 24 hours a day.? Call 988 to speak with someone.? Return for any worsening symptoms or concerns such as thoughts of self harm or harm to others. Please call 911 if you feel your mental health is worsening.? Prescriptions: No Action chlorpromazine 25 mg Tablet 25 mg PO TID PRN (Reason: mild agitation) 30 Days Qty: 90 1RF paroxetine HCl 30 mg tablet 60 mg PO DAILY 30 Days Qty: 60 1RF nicotine (polacrilex) 2 mg lozenge 2 mg PO Q2H PRN (Reason: Nicotine Cravings) 30 Days Qty: 108 0RF Rx Instructions: DNE 20/DAY methadone [Methadose] 10 mg/mL concentrate 150 mg PO DAILY Rx Instructions: Partial Fill upon patient request. prazosin 2 mg capsule 6 mg PO BEDTIME trazodone 50 mg tablet 50 mg PO BEDTIME lurasidone 40 mg tablet 40 mg PO DAILY hydroxyzine HCl 50 mg tablet 50 mg PO Q6H PRN (Reason: Anxiety) gabapentin 300 mg capsule 600 mg PO TID baclofen 20 mg tablet 20 mg PO BID nicotine 21 mg/24 hr patch 24 hour 1 patch topical DAILY Interventions: [place]-Suicide Risk Severity Scale Last Done: 11/25/24 15:04 Print Language: Romanian
--- NOTE | 2024-11-24 13:46 | ECG_ITS ---
Test Reason : check for prolonged qtc Blood Pressure : */* mmHG Vent. Rate : 48 BPM Atrial Rate : 48 BPM P-R Int : 134 ms QRS Dur : 78 ms QT Int : 470 ms P-R-T Axes : 2 61 48 degrees QTcB Int : 419 ms Sinus bradycardia Otherwise normal ECG When compared with ECG of 15-Oct-2024 08:36, No significant change was found Referred By: Hannah Santos Electronically Signed By: RICARDO DEL CASTILLO MD
[2024-11-24 13:55] LABS: MANUAL DIFF FLAG NO
[2024-11-24 13:57] LABS: Appearance Urine Cloudy; Color Urine Dark Yellow; Glucose Urine UA Negative (Negative); Leukocyte Esterase Urine Negative (Negative); Nitrite Urine Negative (Negative); Specific Gravity - Urine >= 1.030 (1.005-1.025); UMIC TRIGGER UACC YES; Urine Blood Negative (Negative); Urine Ketones Trace mg/dL (Negative); Urine Protein 30 (1+) mg/dL (Neg-Trace)
[2024-11-24 13:58] LABS: Basophils Percent Auto 0.4 % (0-2); Eosinophils Absolute Auto 0.3 X10*3/uL (0.0-0.4); Eosinophils Percent Auto 6.3 % (0-4); Hematocrit 37.9 % (42.0-52.0); Imm Gran Abs Auto 0.02 X10*3/uL (0.00-0.03); Imm Gran Pct Auto 0.4 % (0.0-0.4); Lymphocytes Absolute Auto 1.5 X10*3/uL (1.2-4.9); Lymphocytes Percent Auto 28.2 % (20-40); Mean Corpuscular HGB Conc 34.3 g/dl (31.0-36.0); Mean Corpuscular Volume 81.7 fL (80.0-98.0); Mean Platelet Volume 11.2 fL (9.4-12.4); Monocytes Absolute Auto 0.5 X10*3/uL (0.1-1.2); Monocytes Percent Auto 10.3 % (2-11); Neutrophils Absolute Auto 2.9 x10*3/uL (2.0-8.3); Neutrophils Percent Auto 54.4 % (45-73); Platelet Count 242 X10*3/uL (160-400); Red Blood Count 4.64 X10*6/uL (4.60-5.80); Red Cell Distribution Width 14.3 % (11.0-16.0); White Blood Count 5.3 X10*3/uL (4.8-10.8)
[2024-11-24 13:59] LABS: Bacteria Urine None Seen (None Seen); RBC Urine 0-2 /HPF (0-2); Squamous Epithelial Cell Urine 0-2 /HPF (0-2); WBC Urine 0-5 /HPF (0-5)
[2024-11-24 14:09] LABS: Amphetamine Screen Urine Not Detected (Not Detect); Barbiturates, Urine POSITIVE (Not Detect); Benzodiazepines Screen Urine Not Detected (Not Detect); Buprenorphine Scr Not Detected (Not Detect); Cannabinoid Screen Urine POSITIVE (Not Detect); Cocaine Screen Urine POSITIVE (Not Detect); Fentanyl, urine POSITIVE (Not Detect); Methadone Screen, Urine Positive (Not Detect); Opiate Screen Urine Not Detected (Not Detect); Oxycodone Screen Urine Not Detected (Not Detect); Phencyclidine Screen Urine Not Detected (Not Detect)
[2024-11-24 14:21] LABS: Alanine Aminotransferase 24 U/L (0-40); Albumin Level 4.6 g/dL (3.5-5.0); Alkaline Phosphatase 73 U/L (39-117); Anion Gap 11 (12-20); Aspartate Amino Transferase 29 U/L (5-37); Bilirubin Total 0.5 mg/dL (0.0-1.0); Blood Urea Nitrogen 14 mg/dL (9-16); Calcium 9.7 mg/dL (8.4-10.2); Carbon Dioxide 26 mmol/L (22-29); Chloride 109 mmol/L (96-108); Creatinine Clr Calc Pharmacy 159.7; Estimated Glomerular Filt Rate > 60; Ethanol < 10 mg/dL; Glucose Random 105 mg/dL (60-115); Potassium 3.8 mmol/L (3.3-5.1); Sodium 142 mmol/L (135-145)
[2024-11-24 14:32] LABS: Influenza A PCR NEGATIVE (Negative); Influenza B PCR NEGATIVE (Negative); Resp Syncy Virus RNA Qual PCR NEGATIVE (Negative); SARS COV2 PCR INHOUSE NEGATIVE (Negative)
--- NOTE | 2024-11-24 14:39 | PC.NURSE ---
methadone dose verified with [facility]. 150mg daily. form faxed to pharmacy
--- NOTE | 2024-11-24 15:06 | PC.NURSE ---
med rec completed with pharmacy claims and information provided from patient. he states that he no longer takes atorvastatin 10mg, clonadine 0.1mg, and pramipexole 0.125mg. Pt states that he is still taking chlorpromazine 25mg as needed.
[2024-11-24] MEDS: methADONE HCl 20 MG/2 ML ORAL.CONC 150 MG PO (16:19)
[2024-11-24] MEDS: PARoxetine HCL 30 MG TABLET 60 MG PO (16:22)
[2024-11-24] MEDS: Nicotine 21 MG PATCH.TD24 TRANSDERMA (16:22)
[2024-11-24] MEDS: Gabapentin 300 MG CAPSULE 600 MG PO ×2 (16:22→20:21)
[2024-11-24] MEDS: Lurasidone HCl 40 MG TABLET PO (16:22)
[2024-11-24] MEDS: Nicotine Polacrilex Lozenge 2 MG LOZENGE BUCCAL (18:27)
[2024-11-24 20:21] VITALS: BP 106/53; PULSE 60; RESP 16; TEMP 36.3; O2SAT 97
[2024-11-24] MEDS: traZODone HCL 50 MG TABLET PO (20:21)
[2024-11-24] MEDS: Baclofen 20 MG TABLET PO (20:21)
[2024-11-24] MEDS: Prazosin HCL 1 MG CAPSULE 6 MG PO (20:21)
[2024-11-25 06:18] VITALS: RESP 16
--- NOTE | 2024-11-25 07:53 | PC.NURSE ---
Assumed care of patient at 0645, patient appears to be in no apparent distress this am, calm and cooperative, offering no complaints to this RN. Continue plan of care for CARE team follow up tomorrow
[2024-11-25] MEDS: Gabapentin 300 MG CAPSULE 600 MG PO ×2 (08:16→20:46)
[2024-11-25] MEDS: PARoxetine HCL 30 MG TABLET 60 MG PO (08:16)
[2024-11-25] MEDS: Lurasidone HCl 40 MG TABLET PO (08:16)
[2024-11-25] MEDS: Nicotine 21 MG PATCH.TD24 TRANSDERMA (08:16)
[2024-11-25] MEDS: methADONE HCl 20 MG/2 ML ORAL.CONC 150 MG PO (08:16)
[2024-11-25] MEDS: Baclofen 20 MG TABLET PO ×2 (08:17→20:46)
--- NOTE | 2024-11-25 08:46 | MHC.CARE ---
T/W does not believe that Pt meets the criteria for a higher level of care or presents as an imminent risk. Pt is well known to the CARE team from many prior assessments and inpatient psychiatric admissions. Pt is well known to every [facility] and presents endorsing SI in the context of chronic homelessness and polysubstance use. Pt has been administratively discharged from [facility] inpatient units for verbal aggression and other behavioral issues. Historically Pt does not follow up with medications and TX recommendations. ED provider is not comfortable discharging Pt at this time and T/W and provider decided Pt will be left as a follow up to be re-evaluated tomorrow for level of care or discharge. Pt was informed he is not IPLOC or DUAL DX level of care at this time and will remain in the ED as a follow up.
--- NOTE | 2024-11-25 12:57 | PHA.MEDREC ---
Addendum entered by Manju Moreno RPh 11/25/24 13:07: MED REC REVIEWED BY [facility] Original Note: Pharmacy Consult ? Medication Reconciliation Reviewed med rec done by nursing. Nurse Stewart confirmed with patient they are no longer taking quetiapine.
[2024-11-25] MEDS: Nicotine Polacrilex Lozenge 2 MG LOZENGE BUCCAL ×4 (13:30→23:55)
--- NOTE | 2024-11-25 17:16 | PC.NURSE ---
Pt has had uneventful day, offering no complaints to this RN
[2024-11-25 20:44] VITALS: BP 107/62; PULSE 66; RESP 16; TEMP 36.6; O2SAT 95
[2024-11-25] MEDS: traZODone HCL 50 MG TABLET PO (20:46)
[2024-11-25] MEDS: Prazosin HCL 1 MG CAPSULE 6 MG PO (20:46)
--- NOTE | 2024-11-26 06:26 | PC.NURSE ---
pt resting comfortably throughout the night, calm and cooperative with care, no apparent distress noted
--- NOTE | 2024-11-26 07:01 | PC.NURSE ---
This RN assumed care of patient @ 0700. Patient resting in room at this time. Continue plan of care to f/u and re-evaluate for an appropriate disposition.
[2024-11-26] MEDS: Baclofen 20 MG TABLET PO (08:07)
[2024-11-26] MEDS: Gabapentin 300 MG CAPSULE 600 MG PO (08:07)
[2024-11-26] MEDS: PARoxetine HCL 30 MG TABLET 60 MG PO (08:07)
[2024-11-26] MEDS: Lurasidone HCl 40 MG TABLET PO (08:07)
[2024-11-26] MEDS: methADONE HCl 20 MG/2 ML ORAL.CONC 150 MG PO (08:08)
[2024-11-26] MEDS: Nicotine 21 MG PATCH.TD24 TRANSDERMA (08:14)
[2024-11-26 08:39] VITALS: BP 107/62; PULSE 66; RESP 16; TEMP 36.6; O2SAT 95
--- NOTE | 2024-11-26 08:59 | MHC.CARE ---
CARE Team faxed a referral for a 3 day follow up and 7 day alert to [facility]. [facility] has received the request and it is activated. Pt's housing is unclear at this time, he may be at an uncle's home (Unsure if this is the [place] address listed) or [place] and homeless.
== END 2024-11-26 08:39 | disposition home or self-care (01) ==
PROVIDERS: Registered Nurse Emergency; Emergency Provider Emergency Medicine Emergency Medical Services
DX: F33.3 Major depressive disorder, recurrent, severe with psychotic symptoms (principal); R45.851 Suicidal ideations; F41.9 Anxiety disorder, unspecified; F19.10 Other psychoactive substance abuse, uncomplicated; F43.10 Post-traumatic stress disorder, unspecified; F60.2 Antisocial personality disorder; F13.10 Sedative, hypnotic or anxiolytic abuse, uncomplicated; F14.20 Cocaine dependence, uncomplicated; F39 Unspecified mood [affective] disorder; F11.20 Opioid dependence, uncomplicated; F17.210 Nicotine dependence, cigarettes, uncomplicated; Z79.899 Other long term (current) drug therapy; Z03.818 Encounter for observation for suspected exposure to other biological agents ruled out
CPT/HCPCS: 0241U; 80053; 80307; 81001; 85025; 93005; 99285; S9485

== ENCOUNTER → 2024-11-24 13:46 | Outpatient (BNV) | payer OTHER, SELFPAY | PROVIDERS: Emergency Provider Emergency Medicine; Visit Provider Internal Medicine Cardiovascular Disease | DX: R00.1 Bradycardia, unspecified (principal) | CPT/HCPCS: 93010 ==

== ENCOUNTER 2024-12-14 11:07 | Emergency (ER) | payer OTHER, SELFPAY ==
[2024-12-14 11:13] VITALS: BP 115/61; PULSE 74; RESP 20; TEMP 37; O2SAT 96; BMI 28.5
--- NOTE | 2024-12-14 11:18 | ED.PSYCH ---
HPI - Psych General Chief Complaint: Psychiatric Symptoms Stated Complaint: SI Time Seen by Provider: 12/14/24 11:22 Source: patient Mode of arrival: ambulatory Limitations: no limitations History of Present Illness ED Provider: Melissa Tom PA-C HPI Narrative: Patient is a 33 year old assigned male at with a history of PTSD, MDD, and polysubstance abuse presenting to the emergency department today with suicidal ideation. Patient states that over the last 3 days he has been having suicidal ideation and believes it is his medications. Patient denies any dizziness, lightheadedness, abdominal pain, nausea, vomiting, fever, chills, blurry vision, double vision, loss of vision, chest pain, difficulty breathing, shortness of breath, back pain, night sweats, pain with urination, increased urinary frequency, increased urinary urgency, blood in his urine or stool, syncope or a near syncopal episode, recent trauma or falls, bowel incontinence, bladder incontinence, or any other complaints at this time. Onset (ago): day(s) (3) Related Data Home Medications ?Medication ?Instructions ?Recorded ?Confirmed methadone 10 mg/mL oral 150 mg PO DAILY 08/14/24 12/14/24 concentrate (Methadose) prazosin 2 mg capsule 6 mg PO BEDTIME 09/09/24 12/14/24 baclofen 20 mg tablet 20 mg PO BID 10/14/24 12/14/24 gabapentin 300 mg capsule 600 mg PO TID 10/14/24 12/14/24 hydroxyzine HCl 50 mg tablet 50 mg PO Q6H PRN Anxiety 10/14/24 12/14/24 nicotine 21 mg/24 hr daily 1 patch topical DAILY nicotine 10/14/24 12/14/24 transdermal patch cravings lurasidone 40 mg tablet 40 mg PO DAILY 11/04/24 12/14/24 quetiapine 100 mg tablet 100 mg PO BEDTIME 12/14/24 12/14/24 Previous Rx's ?Medication ?Instructions ?Recorded chlorpromazine 25 mg tablet 25 mg PO TID PRN mild agitation 30 01/10/24 days #90 tabs nicotine (polacrilex) 2 mg buccal 2 mg PO Q2H PRN Nicotine Cravings 01/10/24 lozenge 30 days #108 ea paroxetine HCl 30 mg tablet 60 mg (2 x 30 mg) PO DAILY 30 days 01/10/24 #60 tabs Allergies Allergy/AdvReac Type Severity Reaction Status Date / Time amoxicillin Allergy Hives Verified 12/14/24 11:16 Penicillins (PCN) Allergy Hives Verified 12/14/24 11:16 seafood Allergy Difficulty Verified 12/14/24 11:16 Breathing Review of Systems Constitutional: Constitutional: Reports no additional constitutional complaints, Denies chills, Denies fever(s) and Denies night sweats Eyes: Eyes: Reports no additional eye complaints, Denies blurry vision, Denies change in vision, Denies diplopia, Denies eye discharge, Denies loss of vision and Denies eye pain ENT: Denies dizziness Cardiovascular: Cardiovascular: Reports no additional cardiovascular complaints, Denies chest pain, Denies lightheadedness, Denies Loss of Consciousness and Denies dyspnea Respiratory: Respiratory: Reports no additional respiratory complaints and Denies dyspnea Gastrointestinal: Gastrointestinal: Reports no additional gastrointestinal complaints, Denies abdominal pain, Denies melena, Denies hematochezia, Denies change in bowel habits and Denies change in stool character Genitourinary: Genitourinary: Reports no additional male genitourinary complaints, Denies hematuria, Denies oliguria, Denies difficulty urinating, Denies dysuria, Denies urinary frequency, Denies urinary hesitancy, Denies urinary incontinence and Denies urinary urgency Musculoskeletal: Musculoskeletal: Reports no additional musculoskeletal complaints, Denies numbness and Denies tingling Neurologic: Denies dizziness, Denies loss of vision, Denies numbness and Denies tingling Psychiatric: Psychiatric: Denies homicidal ideation and Reports suicidal ideation Endocrine: Endocrine: Reports no additional endocrine complaints Hematologic/Lymphatic: Hematologic/Lymphatic: Reports no additional hematologic/lymphatic complaints Allergic/Immunologic: Allergic/Immunologic: Reports no additional allergic/immunologic complaints PMFSH Past Medical History Attestation statement: The following information was validated with the patient. Source: old records reviewed and nursing notes reviewed Medical History Polysubstance use disorder Opioid use disorder Depression Antisocial personality disorder Cocaine use disorder, moderate, dependence Benzodiazepine abuse MDD (major depressive disorder), recurrent, severe, with psychosis Alcohol use disorder Mood disorder PTSD (post-traumatic stress disorder) Polysubstance (including opioids) dependence, daily use Social History Social History Household Members: None Household Members Other:: homeless Housing: Homeless Do you presently have visiting nurse or other home services: No Unable to assess alcohol history related to: Unknown Alcohol intake: current Alcohol intake frequency: a few times a month Alcohol type: hard liquor Comment: Pt ambulates independently Patient Tobacco Use Status: Current everyday Tobacco user Tobacco use type: Cigarette Cigarette Packs Per Day: 1 Cigarettes Per Day: 5 Years Smoked: 20 Smoked in Last 30 Days: Yes e-Cigarette/Vaping Use: Never Used Second Hand Smoke Exposure: No Substance Use Type: Crack/Cocaine Advance Directives: No Advance Directives Information Provided: Yes service: No Current occupational status: unemployed Sexual orientation: Straight/Heterosexual Physical Exam Vital Signs: Vital Signs: Last Vital Signs Temp 97.7 F 12/17/24 07:32 Pulse 89 12/17/24 07:32 Resp 16 12/17/24 07:32 BP 109/58 L 12/17/24 07:32 Pulse Ox 97 12/17/24 07:32 O2 Del Method Room Air 12/17/24 07:32 BMI result Body Mass Index 28.5 Const: General: cooperative, no acute distress, alert and awake Nutritional Appearance: well nourished Orientation/consciousness: patient oriented x3 HEENT: Head: Yes normal to inspection and Yes atraumatic Ears: hearing grossly normal bilaterally and external ears normal General nose exam: Normal external nose present, no nasal discharge noted and no epistaxis Face and sinus: Yes normal facial exam, No abrasion and No laceration Mouth: Normal oral and palatal mucosa present, no drooling and no muffled voice Eyes: General: appearance normal, both eyes and all related structures Periorbital: periorbital findings normal Eyelids: Yes eyelids normal Conjunctivae: conjunctivae normal Pupils: Equal, round and reactive pupils present EOM: EOMs intact bilaterally Neck: Neck: Yes normal visual inspection, Yes full ROM and Yes no lymphadenopathy Resp: Effort & Inspection: normal respiratory effort and able to speak in complete sentences Neuro: General: patient oriented x3, moves all extremities and CN's II-XI intact bilaterally Cranial nerves: Yes Equal, round and reactive pupils present Cognition (Neuro): normal cognition Extrem: General: Yes normal to inspection, Yes full ROM and Yes capillary refill normal Psych: Appearance: grossly normal Mental Status: mental status grossly normal Affect: normal affect Attitude: Guarded attititude/behavior present Thought content: Suicidality present Course Course Course Narrative: This is an RME: Additional HPI, ROS, PE not included below will be deferred to primary provider. RME assessment and note performed by: Beth Diaz PA-C This is a 89-fowp-nur-male who presents to the ER with complaints of SI. Reports that he has had these thoughts for 3 days, blieve that it is due to his medications, no missed dosages or changes. Reports that he has firearms within the household for SI. +cocaine use. Plan: Labs, EKG, UA, pt to be brought back [facility] for crisis. Reevaluation(s) Reevaluation #1: 12/15/2024, 10:30 DR. Roberto' progress note: VSS, no events reported by nurses overnight, care team input is appreciated, patient remains dual diagnosis bed search, continue with physician observation. Time: 10:34 Reevaluation #2: 12/16/2024, 10:30 DR. Roberto' progress note: VSS, no events reported by nurses overnight, care team input is appreciated, patient remains bed search, continue with physician observation. Time: 10:30 Reevaluation #3: Time: 09:17 Date: 12/17/24 Provider: Jaime Banda MD Patient in physician observation for psychiatric evaluation.? No acute events reported overnight. No current complaints. VS stable.? Patient is in bed search status/pending CARE team evaluation. Will continue to monitor. 10:54 12/17/2024 the patient was accepted to [facility] this end the observation status of the patient 12 PM 12/17/2024 pt valderrama sot want to go dual dx ,seen again by crisis OK to D/C Medications Administered Generic Name Dose Route Start Last Admin Trade Name Freq PRN Reason Stop Dose Admin Baclofen 20 mg 12/14/24 21:00 12/17/24 08:21 Baclofen 20 Mg Tablet PO 20 mg BID BESSIE Administration Gabapentin 600 mg 12/14/24 15:00 12/17/24 08:21 Gabapentin 300 Mg Capsule PO 600 mg TID BESSIE Administration Lurasidone HCl 40 mg 12/15/24 09:00 12/17/24 08:24 Lurasidone Hcl 40 Mg Tablet PO Not Given DAILY BESSIE Methadone HCl 150 mg 12/14/24 13:45 12/17/24 08:08 Methadone Hcl 20 Mg/2 Ml Oral.Conc PO 150 mg DAILY BESSIE Administration Nicotine 21 mg 12/14/24 13:45 12/17/24 08:21 Nicotine 21 Mg Patch.Td24 TRANSDERMA 21 mg DAILY BESSIE Administration Nicotine Polacrilex 2 mg 12/14/24 12:13 12/17/24 11:51 Nicotine Polacrilex Lozenge 2 Mg Lozenge BUCCAL 2 mg Q2H PRN Administration Nicotine Cravings Paroxetine HCl 60 mg 12/14/24 13:45 12/17/24 08:21 Paroxetine Hcl 30 Mg Tablet PO 60 mg DAILY BESSIE Administration Prazosin HCl 6 mg 12/14/24 21:00 12/16/24 22:27 Prazosin Hcl 1 Mg Capsule PO 6 mg BEDTIME BESSIE Administration Protocol Quetiapine Fumarate 100 mg 12/14/24 21:00 12/16/24 22:27 Quetiapine Fumarate 100 Mg Tablet PO 100 mg BEDTIME BESSIE Administration Medical Decision Making Medical Decision Making MDM Narrative: Patient is a 33 year old assigned male at with a history of PTSD, MDD, and polysubstance abuse presenting to the emergency department today with suicidal ideation. Patient's physical exam was as noted in the physical exam portion of this note. Patient's blood work was unremarkable. Patient's EKG was unremarkable. Patient met with the CARE team who recommended the patient be a dual diagnosis bed search. I explained my physical exam findings as well as all test results to the patient. I answered all questions asked by the patient. Patient verbalized agreement and understanding with this treatment plan and remaining here in observation pending placement at a dual diagnosis facility. Differential Diagnosis Differential Diagnoses: The differential diagnosis associated with the presentation includes Polysubstance use / abuse Suicidal ideation Admission/Observation Consideration of admission/observation: Escalation of care including admission/observation considered Patient will remain in observation until he is placed a dual diagnosis facility. Consult Healthcare Provider Management of the patient was discussed with: Behavioral Health Provider (Spoke with the CARE team as noted in the MDM Rationale portion of this note. ) Lab Data MDM Lab Attestation statement: I reviewed the patient's lab results. My interpretation of these results are in the MDM Rationale portion of this note. 12/14/24 12:02 12/14/24 12:02 Labs: Lab Results 12/14/24 12/14/24 Range/Units 12:02 21:37 WBC 6.8 (4.8-10.8) X10*3/uL RBC 4.79 (4.60-5.80) X10*6/uL Hgb 13.4 L (14.0-18.0) g/dl Hct 39.5 L (42.0-52.0) % MCV 82.5 (80.0-98.0) fL MCH 28.0 (27.0-33.0) pg MCHC 33.9 (31.0-36.0) g/dl RDW 14.5 (11.0-16.0) % Plt Count 272 (160-400) X10*3/uL MPV 10.4 (9.4-12.4) fL Immature Gran % (Auto) 0.3 (0.0-0.4) % Neut % (Auto) 63.0 (45-73) % Lymph % (Auto) 22.5 (20-40) % [place] % (Auto) 7.5 (2-11) % Eos % (Auto) 6.1 H (0-4) % Baso % (Auto) 0.6 (0-2) % Lymph # (Auto) 1.5 (1.2-4.9) X10*3/uL [place] # (Auto) 0.5 (0.1-1.2) X10*3/uL Eos # (Auto) 0.4 (0.0-0.4) X10*3/uL Baso # (Auto) 0.0 (0.0-0.2) X10*3/uL Abs Immat Gran (auto) 0.02 (0.00-0.03) X10*3/uL Absolute Neuts (auto) 4.3 (2.0-8.3) x10*3/uL Absolute Nucleated RBC 0.000 (0.0-0.012) X10*3/uL Nucleated RBC % (auto) 0.0 (0.0-0.2) /100WBC Sodium 143 (135-145) mmol/L Potassium 3.7 (3.3-5.1) mmol/L Chloride 106 (96-108) mmol/L Carbon Dioxide 25 (22-29) mmol/L Anion Gap 16 (12-20) BUN 20 H (9-16) mg/dL Creatinine 0.74 (0.5-1.4) mg/dL Estim Creat Clear Calc 170.0 Estimated GFR > 60 Random Glucose 103 (60-115) mg/dL Calcium 9.8 (8.4-10.2) mg/dL Total Bilirubin 0.8 (0.0-1.0) mg/dL AST 36 (5-37) U/L ALT 26 (0-40) U/L Alkaline Phosphatase 71 (39-117) U/L Total Creatine Kinase 201 H (38-174) U/L Troponin I High Sens < 2.7 (<3.5-35.0) ng/L Total Protein 8.1 H (6.5-8.0) g/dL Albumin 4.9 (3.5-5.0) g/dL Urine Color Yellow Urine Appearance Cloudy Urine pH 6.0 (5.0-9.0) Ur Specific [place] >= 1.030 H (1.005-1.025) Urine Protein 30 (1+) H (Neg-Trace) mg/dL Urine Glucose (UA) Negative (Negative) mg/dL Urine Ketones 15 (Negative) mg/dL Urine Blood Negative (Negative) Urine Nitrite Negative (Negative) Ur Leukocyte Esterase Negative (Negative) Urine RBC 0-2 (0-2) /HPF Urine WBC 0-5 (0-5) /HPF Ur Squamous Epith Cells 3-5 (0-2) /HPF Urine Bacteria None Seen (None Seen) Hyaline Casts 3-5 (0-2) /LPF Salicylates < 5.0 L (15-30) mg/dL Urine Opiates Screen Not Detected (Not Detect) Ur Buprenorphine Scrn Not Detected (Not Detect) ng/mL Ur Oxycodone Screen Not Detected (Not Detect) ng/mL Urine Methadone Screen Positive H (Not Detect) ng/mL Urine Fentanyl Screen POSITIVE H (Not Detect) Acetaminophen < 3 (<30) mcg/mL Ur Barbiturates Screen Not Detected (Not Detect) Ur Phencyclidine Scrn Not Detected (Not Detect) Ur Amphetamines Screen Not Detected (Not Detect) U Benzodiazepines Scrn POSITIVE H (Not Detect) Urine Cocaine Screen POSITIVE H (Not Detect) U Marijuana (THC) Screen POSITIVE H (Not Detect) Ethyl Alcohol < 10 mg/dL COVID-19 (JAMIE) Negative (Negative) COVID-19 Clin Com See Note Independent Interpretation I performed an independent interpretation of an: EKG Interpretation: I independently interpreted this EKG and am in agreement with the below findings: Vent. Rate: 64 BPM Atrial Rate: 64 BPM P-R Int: 130 ms QRS Dur: 80 ms QT Int: 448 ms P-R-T Axes: -15 46 43 degrees QTcB Int: 462 ms Normal sinus rhythm with sinus arrhythmia Normal ECG When compared with ECG of 24-Nov-2024 13:51, No significant change was found DD/ 1140 Critical Care Time Critical Care Time Critical Care Time: Yes Total Critical Care Time: 32 Attestation: I spent 31 minutes of Critical Care Time with this patient. This does not include time spent on separately reported billable procedures. Discharge Plan Discharge Clinical Impression: Posttraumatic stress disorder, Cocaine use disorder Depression Qualifiers: Depression Type: major depressive disorder Major depression recurrence: recurrent Active/Remission status: currently active Major depression episode severity: moderate Qualified Code(s): F33.1 - Major depressive disorder, recurrent, moderate Patient Disposition: Home, Self-Care Instructions: Polysubstance Use Disorder (ED) Prescriptions: No Action chlorpromazine 25 mg Tablet 25 mg PO TID PRN (Reason: mild agitation) 30 Days Qty: 90 1RF paroxetine HCl 30 mg tablet 60 mg PO DAILY 30 Days Qty: 60 1RF nicotine (polacrilex) 2 mg lozenge 2 mg PO Q2H PRN (Reason: Nicotine Cravings) 30 Days Qty: 108 0RF Rx Instructions: DNE 20/DAY methadone [Methadose] 10 mg/mL concentrate 150 mg PO DAILY Rx Instructions: Partial Fill upon patient request. prazosin 2 mg capsule 6 mg PO BEDTIME lurasidone 40 mg tablet 40 mg PO DAILY hydroxyzine HCl 50 mg tablet 50 mg PO Q6H PRN (Reason: Anxiety) gabapentin 300 mg capsule 600 mg PO TID baclofen 20 mg tablet 20 mg PO BID nicotine 21 mg/24 hr patch 24 hour 1 patch topical DAILY quetiapine 100 mg tablet 100 mg PO BEDTIME Referrals: ARMANDO LOFTON [Primary Care Provider, Internal Medicine] Interventions: Dolores-Suicide Risk Severity Scale Last Done: 12/17/24 10:34 Print Language: Montserratian
--- NOTE | 2024-12-14 11:19 | ECG_ITS ---
Test Reason : cocaine use Blood Pressure : */* mmHG Vent. Rate : 64 BPM Atrial Rate : 64 BPM P-R Int : 130 ms QRS Dur : 80 ms QT Int : 448 ms P-R-T Axes : -15 46 43 degrees QTcB Int : 462 ms Normal sinus rhythm with sinus arrhythmia Normal ECG When compared with ECG of 24-Nov-2024 13:51, No significant change was found Referred By: Beth Diaz Electronically Signed By: RICARDO DEL CASTILLO MD
--- NOTE | 2024-12-14 11:48 | PC.NURSE ---
Pt is calm, entering POD and aware of plan of care. States he's been here before. Continues to endorse SI. pt is cooperative with lab work and ekg Has no complaints at this time. Given snacks/drinks. Awaits Provider and CARE Team eval.
--- NOTE | 2024-12-14 11:54 | HE.PHANOTE ---
METHADONE Pt last received 150mg on 12/12/24 @ 0741 per Sheeba from [facility], .
[2024-12-14 12:00] VITALS: BP 120/60; PULSE 88; RESP 19; TEMP 37.1; O2SAT 100
[2024-12-14 12:10] LABS: MANUAL DIFF FLAG NO
[2024-12-14 12:13] LABS: Hematocrit 39.5 % (42.0-52.0); Hemoglobin 13.4 g/dl (14.0-18.0); Imm Gran Abs Auto 0.02 X10*3/uL (0.00-0.03); Imm Gran Pct Auto 0.3 % (0.0-0.4); Lymphocytes Absolute Auto 1.5 X10*3/uL (1.2-4.9); Mean Corpuscular HGB Conc 33.9 g/dl (31.0-36.0); Mean Corpuscular Hemoglobin 28.0 pg (27.0-33.0); Mean Corpuscular Volume 82.5 fL (80.0-98.0); NRBC Abs Auto 0.000 X10*3/uL (0.0-0.012); NRBC Pct Auto 0.0 /100WBC (0.0-0.2); Platelet Count 272 X10*3/uL (160-400); Red Blood Count 4.79 X10*6/uL (4.60-5.80); White Blood Count 6.8 X10*3/uL (4.8-10.8)
[2024-12-14 12:25] LABS: COVID-19 Test Negative (Negative); IDNOW Serial# 55D5AD1C
[2024-12-14 12:47] LABS: Alanine Aminotransferase 26 U/L (0-40); Albumin Level 4.9 g/dL (3.5-5.0); Alkaline Phosphatase 71 U/L (39-117); Anion Gap 16 (12-20); Aspartate Amino Transferase 36 U/L (5-37); Blood Urea Nitrogen 20 mg/dL (9-16); Calcium 9.8 mg/dL (8.4-10.2); Carbon Dioxide 25 mmol/L (22-29); Chloride 106 mmol/L (96-108); Creatinine Clr Calc Pharmacy 170.0; Estimated Glomerular Filt Rate > 60; Potassium 3.7 mmol/L (3.3-5.1); Sodium 143 mmol/L (135-145); Total Protein 8.1 g/dL (6.5-8.0); Troponin-I High Sensitivity < 2.7 ng/L (<3.5-35.0)
[2024-12-14 12:48] LABS: Acetaminophen LAB < 3 mcg/mL (<30); Salicylate < 5.0 mg/dL (15-30)
[2024-12-14] MEDS: Nicotine 21 MG PATCH.TD24 TRANSDERMA (14:07)
[2024-12-14] MEDS: methADONE HCl 20 MG/2 ML ORAL.CONC 150 MG PO (14:08)
[2024-12-14] MEDS: Nicotine Polacrilex Lozenge 2 MG LOZENGE BUCCAL (15:30)
--- NOTE | 2024-12-14 17:06 | MHC.CARE ---
Patient will be a dual dx bedsearch. Section 12a in chart for safety
[2024-12-14 21:29] VITALS: BP 99/53
[2024-12-14 21:30] VITALS: BP 99/53; PULSE 87; RESP 16; TEMP 37.1; O2SAT 97
[2024-12-14 21:47] LABS: Appearance Urine Cloudy; Glucose Urine UA Negative (Negative); PH 6.0 (5.0-9.0); Specific Gravity - Urine >= 1.030 (1.005-1.025); UMIC TRIGGER UA YES
[2024-12-14 21:56] LABS: Cannabinoid Screen Urine POSITIVE (Not Detect)
[2024-12-15 06:12] VITALS: RESP 16
[2024-12-15] MEDS: methADONE HCl 20 MG/2 ML ORAL.CONC 150 MG PO (08:13)
[2024-12-15] MEDS: Nicotine 21 MG PATCH.TD24 TRANSDERMA (08:14)
[2024-12-15 08:17] VITALS: BP 100/66; PULSE 66; RESP 18; TEMP 36.3; O2SAT 95
--- NOTE | 2024-12-15 10:03 | PC.NURSE ---
pt has been sleeping all morning, nad, skin wpd, resp even and unlabored, woken for am meds and quickly back to sleep, pt was calm and pleasant
[2024-12-15] MEDS: Nicotine Polacrilex Lozenge 2 MG LOZENGE BUCCAL ×4 (11:49→20:48)
[2024-12-15 16:16] VITALS: BP 114/67; PULSE 80; RESP 16; TEMP 36.6; O2SAT 96
[2024-12-15 20:45] VITALS: BP 114/67
[2024-12-16 00:05] VITALS: BP 132/87; PULSE 74; RESP 16; TEMP 37.1; O2SAT 96
[2024-12-16] MEDS: Nicotine Polacrilex Lozenge 2 MG LOZENGE BUCCAL ×5 (07:15→22:09)
[2024-12-16 07:19] VITALS: BP 104/56; PULSE 67; RESP 14; O2SAT 96
[2024-12-16] MEDS: methADONE HCl 20 MG/2 ML ORAL.CONC 150 MG PO (08:05)
[2024-12-16] MEDS: Nicotine 21 MG PATCH.TD24 TRANSDERMA (08:06)
--- NOTE | 2024-12-16 14:24 | PC.NURSE ---
Pt calm/cooperative; able to make needs known; resting quietly in room
[2024-12-16 15:33] VITALS: RESP 14
[2024-12-16 17:03] VITALS: BP 116/61; PULSE 61; RESP 16; TEMP 36.6; O2SAT 96
[2024-12-16 22:27] VITALS: BP 127/70
--- NOTE | 2024-12-17 00:23 | PC.NURSE ---
Took over care from YOHAN Tapia at 23:00 pt sleeping at this time.
--- NOTE | 2024-12-17 04:10 | PC.NURSE ---
pt oob to bathroom
[2024-12-17] MEDS: Nicotine Polacrilex Lozenge 2 MG LOZENGE BUCCAL ×3 (04:14→11:51)
[2024-12-17 04:17] VITALS: BP 118/76; PULSE 60; RESP 16; TEMP 36.4; O2SAT 97
[2024-12-17 07:32] VITALS: BP 109/58; PULSE 89; RESP 16; TEMP 36.5; O2SAT 97
[2024-12-17] MEDS: methADONE HCl 20 MG/2 ML ORAL.CONC 150 MG PO (08:08)
[2024-12-17] MEDS: Nicotine 21 MG PATCH.TD24 TRANSDERMA (08:21)
--- NOTE | 2024-12-17 10:42 | MHC.CARE ---
Patient has been accepted to [facility] for today- located @ [address] [place] [id number], ETA 4pm, Accepting provider is Dr. Somers F43.10 PTSD F32.9 Unspecified depressive d/o F14.20 Cocaine use d/o. Ambulance pick-up time here at [facility] for 1400.
--- NOTE | 2024-12-17 11:01 | MHC.CARE ---
12 for transport has been completed.
--- NOTE | 2024-12-17 12:12 | MHC.CARE ---
Pt is denying SI and requesting D/C. At this time he is declining his placement at [facility]. Pt will be discharged.
[2024-12-17 12:48] VITALS: BP 135/74; PULSE 66; RESP 14; TEMP 36.9; O2SAT 98
[2024-12-17 12:49] VITALS: BP 135/74; PULSE 66; RESP 14; TEMP 36.9; O2SAT 98
== END 2024-12-17 12:56 | disposition home or self-care (01) ==
PROVIDERS: Physician Assistant Medical; Emergency Provider Emergency Medicine Emergency Medical Services; PCP Nurse Practitioner Family
DX: F33.1 Major depressive disorder, recurrent, moderate (principal); F43.10 Post-traumatic stress disorder, unspecified; F14.20 Cocaine dependence, uncomplicated; F19.10 Other psychoactive substance abuse, uncomplicated; F11.20 Opioid dependence, uncomplicated; F17.210 Nicotine dependence, cigarettes, uncomplicated; Z11.52 Encounter for screening for COVID-19; Z79.899 Other long term (current) drug therapy
CPT/HCPCS: 80053; 80143; 80179; 80307; 81001; 82550; 84484; 85025; 87635; 93005; 99285; S9485

== ENCOUNTER → 2024-12-14 11:19 | Outpatient (BNV) | payer OTHER, SELFPAY | PROVIDERS: Emergency Provider Emergency Medicine Emergency Medical Services; Visit Provider Internal Medicine Cardiovascular Disease | DX: F14.90 Cocaine use, unspecified, uncomplicated (principal) | CPT/HCPCS: 93010 ==

== ENCOUNTER 2025-04-04 08:59 | Emergency (ER) | payer OTHER, SELFPAY ==
--- NOTE | ~2025-04-04 | XR_ITS ---
EXAMINATION: XR HAND 3 OR MORE VIEWS RIGHT HISTORY: pain, injury COMPARISON: There are no prior studies available for comparison. FINDINGS: Three views of the right hand are submitted. Osseous mineralization is normal. There is a comminuted intra-articular fracture of the middle phalanx of the index finger. There is a comminuted fracture of the neck of the 4th metacarpal. There is a probable old healed fracture deformity of the 5th metacarpal. There is no dislocation. The joint spaces are preserved. There is soft tissue swelling of the index finger. XR/XR hand RT min 3V IMPRESSION: 1. Comminuted intra-articular fracture of the middle phalanx of the index finger. 2. Comminuted fracture of the neck of the 4th metacarpal. Electronically signed by: Benito Driscoll MD 04/04/2025 09:35 AM EDT
[2025-04-04 09:01] VITALS: BP 111/61; PULSE 102; RESP 18; TEMP 36.5; O2SAT 96; BMI 26.8
--- NOTE | 2025-04-04 09:41 | ED_ITS ---
HPI - Psych General Chief Complaint: Psychiatric Symptoms Stated Complaint: SI, R hand injury Time Seen by Provider: 04/04/25 09:15 Source: patient Mode of arrival: ambulatory Limitations: no limitations History of Present Illness ED Provider: PAM PARKER Narrative: 34 yo male with PMH of PTSD, MDD, substance abuse disorder on methadone took his dose this AM, alcohol use disorder currently not drinking who reports R hand injury 2 weeks ago states he had a seizure but [facility] and his his R hand dominant hand on a car. He was told presenting weeks later that this R index finger was broken. He has been in a volar splint since. He has not followed up. He denies prior injury to that area. His splint is falling off on arrival. He also has SI and has access to guns per his report. MD complaint: suicidal ideation and feels depressed Onset (ago): week(s) Duration: constant History of same: Yes Relieving factors: none Exacerbating factors: drug use Context: recent drug abuse and significant life stressor Associated psychiatric symptoms: depression and suicidal ideation Associated symptoms: denies other symptoms Treatments prior to arrival: none If self harm: admits thoughts of self harm and has plan Related Data Home Medications ?Medication ?Instructions ?Recorded ?Confirmed methadone 10 mg/mL oral 150 mg PO DAILY 08/14/24 concentrate (Methadose) prazosin 2 mg capsule 6 mg PO BEDTIME 09/09/24 baclofen 20 mg tablet 20 mg PO BID 10/14/24 gabapentin 300 mg capsule 600 mg PO TID 10/14/2404/04 hydroxyzine HCl 50 mg tablet 50 mg PO Q6H PRN Anxiety 10/14/24 04/04/25 nicotine 21 mg/24 hr daily 1 patch topical DAILY nicot ine 10/14/24 04/04/25 transdermal patch cravings lurasidone 40 mg tablet 40 mg PO DAILY 11/04/2403/14 quetiapine 100 mg tablet 100 mg PO BEDTIME 12/14/24 1 baclofen 10 mg tablet 10 mg PO TID 04/05/25 clonidine HCl 0.1 mg tablet 0.1 mg PO TID 04/05/25 folic acid 1 mg tablet 1 mg PO DAILY 04/05/25 hydroxyzine pamoate 25 mg capsule 25 mg PO TID 5 aiabrscrluvp-[id number]-[id number] 1 tab PO DAILY 04/05/25 fumarate 7.5 mg-folic acid 400 mcg tablet paroxetine HCl 30 mg tablet 30 mg PO DAILY 04/05/25 pyridoxine (vitamin B6) 50 mg 50 mg PO DAILY 04/05/25 tablet ropinirole 1 mg tablet 1 mg PO BID 04/05/25 thiamine HCl (vitamin B1) 100 mg 100 mg PO DAILY 04/05 tablet trazodone 50 mg tablet 50 mg PO BEDTIME 04/05/25 Previous Rx's ?Medication ?Instructions ?Recorded chlorpromazine 25 mg tablet 25 mg PO TID PRN mild agit ation 30 01/10/24 days #90 tabs nicotine (polacrilex) 2 mg buccal 2 mg PO Q2H PRN Jeremiah coleen Cravings 01/10/24 lozenge 30 days #108 ea paroxetine HCl 30 mg tablet 60 mg (2 x 30 mg) PO DAILY 30 days 01/10/24 #60 tabs Allergies Allergy/AdvReac Type Severity Reaction Status Date / Time amoxicillin Allergy Hives Verified 04/04/25 09:03 Penicillins (PCN) Allergy Hives Verified 04/04/25 09:03 seafood Allergy Difficulty Verified 04/04/25 09:03 Breathing Review of Systems 2 Review of Systems: Constitutional : No Fever, No Chills ENT/Mouth : No Ear Pain, No Nasal Congestion, No sore throat Eyes: No Eye Pain, No Swelling, No Redness Cardiovascular : No Chest Pain, No SOB Respiratory : No Cough, No Sputum, No Dyspnea Gastrointestinal : No Nausea, No Vomiting, No Diarrhea, No Hematochezia, No Melena Genitourinary : No Dysuria, No Urinary Frequency, No Hematuria Musculoskeletal : No Myalgias, pos joint pain Skin : No Skin Lesions, No rash Neuro : No Weakness, No Numbness, No Paresthesias, No Dizziness, No Headache Psych : positive Anxiety, positive Depression, positive SI no HI All other systems reviewed and are negative [facility] Past Medical History Attestation statement: The following information was validated with the patient. Source: old records reviewed Medical History Polysubstance use disorder Opioid use disorder Depression Antisocial personality disorder Cocaine use disorder, moderate, dependence Benzodiazepine abuse MDD (major depressive disorder), recurrent, severe, with psychosis Alcohol use disorder Mood disorder PTSD (post-traumatic stress disorder) Polysubstance (including opioids) dependence, daily use Social History Social History Household Members: None Household Members Other:: homeless Housing: Homeless Do you presently have visiting nurse or other home services: No Alcohol intake: former Comment: Pt ambulates independently Patient Tobacco Use Status: Current everyday Tobacco user Tobacco use type: Cigarette Cigarette Packs Per Day: 1 Cigarettes Per Day: 5 Years Smoked: 20 e-Cigarette/Vaping Use: Never Used Second Hand Smoke Exposure: No Substance Use Type: Crack/Cocaine service: No Current occupational status: unemployed Sexual orientation: Straight/Heterosexual Physical Exam 2 Vital Signs: Vital Signs: Last Vital Signs Temp 97.8 F 04/05/25 12:46 Pulse 51 04/05/25 12:46 Resp 12 04/05/25 12:46 BP 113/64 04/05/25 12:46 Pulse Ox 95 04/05/25 12:46 O2 Del Method Room Air 04/05/25 12:46 BMI result Body Mass Index 26.8 Appearance: Alert. Oriented X3. No acute distress. Eyes: Pupils equal, round and reactive to light. ENT: Pharynx normal. Neck: Normal inspection. Neck supple. CVS: Normal heart rate and rhythm. Pulses normal. Respiratory: No respiratory distress. Breath sounds normal. Abdomen: Soft and nontender. Skin: Skin warm and dry. Normal skin color. Normal skin turgor. Extremities: No lower extremity edema. R hand swelling on dorsum but no celluitis he is NV intact, distally this is 2 weeks old, he has swelling to index as well, splint dirty and falling off Neuro: Oriented X 3. No motor deficit. No sensory deficit. CN2-12 intact Course Course Course Narrative: Time: 06:02 Date: 04/05/25 Provider: Hannah Santos DO Patient in physician observation for psychiatric evaluation.? No acute events reported overnight. No current complaints. VS stable.? Pending CARE team evaluation. Will continue to monitor. Reevaluation(s) Reevaluation #1: Hannah Santos DO 04/05/25 1246 physician observation ended, patient cleared to go home, seen by CARE/recovery Medications Administered Discontinued Medications Generic Name Dose Route Start Last Admin Trade Name Archie PRBj Reason Stop Dose Admin Baclofen 20 mg 04/04/25 21:00 04/05/25 10:15 Baclofen 20 Mg Tablet PO Not Given BID BESSIE Gabapentin 600 mg 04/04/25 15:45 04/05/25 10:15 Gabapentin 300 Mg Capsule PO Not Given TID BESSIE Lurasidone HCl 40 mg 04/05/25 09:00 04/05/25 10:16 Lurasidone Hcl 40 Mg Tablet PO Not Given DAILY BESSIE Methadone HCl 150 mg 04/05/25 10:45 04/05/25 10:56 Methadone Hcl 20 Mg/2 Ml Oral.Conc PO 150 mg DAILY BESSIE Administration Nicotine 21 mg 04/04/25 16:00 04/05/25 08:36 Nicotine 21 Mg Patch.Td24 TRANSDERMA 21 mg DAILY BESSIE Administration Paroxetine HCl 60 mg 04/05/25 09:00 04/05/25 10:16 Paroxetine Hcl 30 Mg Tablet PO Not Given DAILY BESSIE Prazosin HCl 6 mg 04/04/25 21:00 04/04/25 22:09 Prazosin Hcl 1 Mg Capsule PO Not Given BEDTIME BESSIE Protocol Quetiapine Fumarate 100 mg 04/04/25 21:00 04/04/25 22:09 Quetiapine Fumarate 100 Mg Tablet PO 100 mg BEDTIME BESSIE Administration Medical Decision Making Medical Decision Making [facility] Narrative: 34 yo male with PMH of PTSD, MDD, substance abuse disorder on methadone here with SI but also inadequately managed hand fracture at this time will need xray of hand and new splint no signs of infection on exam he is NV intact, as well as CARE team consult for SI. Differential Diagnosis Differential Diagnoses: The differential diagnosis associated with the presentation includes fracture, substance abuse, depression, SI Admission/Observation Consideration of admission/observation: Escalation of care including admission/observation considered phys observation started at 10am pending CARE team Consult Healthcare Provider Management of the patient was discussed with: Behavioral Health Provider Lab Data [facility] Lab Attestation statement: I reviewed the patient's lab results. 04/04/25 09:58 04/04/25 09:58 Labs: Lab Results 04/04/25 04/04/25 Range/Units 09:58 13:20 WBC 6.7 (4.8-10.8) X10*3/uL RBC 4.14 L (4.60-5.80) X10*6/uL Hgb 11.6 L (14.0-18.0) g/dl Hct 35.3 L (42.0-52.0) % MCV 85.3 (80.0-98.0) fL MCH 28.0 (27.0-33.0) pg MCHC 32.9 (31.0-36.0) g/dl RDW 14.3 (11.0-16.0) % Plt Count 254 (160-400) X10*3/uL MPV 10.7 (9.4-12.4) fL Immature Gran % (Auto) 0.2 (0.0-0.4) % Neut % (Auto) 57.2 (45-73) % Lymph % (Auto) 25.4 (20-40) % [place] % (Auto) 10.7 (2-11) % Eos % (Auto) 5.6 H (0-4) % Baso % (Auto) 0.9 (0-2) % Lymph # (Auto) 1.7 (1.2-4.9) X10*3/uL [place] # (Auto) 0.7 (0.1-1.2) X10*3/uL Eos # (Auto) 0.4 (0.0-0.4) X10*3/uL Baso # (Auto) 0.1 (0.0-0.2) X10*3/uL Abs Immat Gran (auto) 0.01 (0.00-0.03) X10*3/uL Absolute Neuts (auto) 3.8 (2.0-8.3) x10*3/uL Absolute Nucleated RBC 0.000 (0.0-0.012) X10*3/uL Nucleated RBC % (auto) 0.0 (0.0-0.2) /100WBC Sodium 142 (135-145) mmol/L Potassium 3.6 (3.3-5.1) mmol/L Chloride 107 (96-108) mmol/L Carbon Dioxide 26 (22-29) mmol/L Anion Gap 13 (12-20) BUN 21 H (9-16) mg/dL Creatinine 0.71 (0.5-1.4) mg/dL Estim Creat Clear Calc 151.3 Estimated GFR > 60 Random Glucose 126 H (60-115) mg/dL Calcium 9.0 D (8.4-10.2) mg/dL Magnesium 2.3 (1.6-2.6) mg/dL Total Bilirubin 0.8 (0.0-1.0) mg/dL Direct Bilirubin 0.3 (0.0-0.5) mg/dL AST 153 H (5-37) U/L ALT 117 H (0-40) U/L Alkaline Phosphatase 76 (39-117) U/L Total Protein 7.1 (6.5-8.0) g/dL Albumin 4.5 (3.5-5.0) g/dL Urine Color Dark Yellow Urine Appearance Cloudy Urine pH 6.0 (5.0-9.0) Ur Specific [place] >= 1.030 H (1.005-1.025) Urine Protein 30 (1+) H (Neg-Trace) mg/dL Urine Glucose (UA) Negative (Negative) mg/dL Urine Ketones Trace (Negative) mg/dL Urine Blood Negative (Negative) Urine Nitrite Negative (Negative) Ur Leukocyte Esterase Negative (Negative) Urine RBC 0-2 (0-2) /HPF Urine WBC 0-5 (0-5) /HPF Ur Squamous Epith Cells 0-2 (0-2) /HPF Urine Bacteria None Seen (None Seen) Hyaline Casts 11-20 (0-2) /LPF Urine Opiates Screen POSITIVE H (Not Detect) Ur Buprenorphine Scrn Not Detected (Not Detect) ng/mL Ur Oxycodone Screen Not Detected (Not Detect) ng/mL Urine Methadone Screen Positive H (Not Detect) ng/mL Urine Fentanyl Screen POSITIVE H (Not Detect) Ur Barbiturates Screen Not Detected (Not Detect) Ur Phencyclidine Scrn Not Detected (Not Detect) Ur Amphetamines Screen Not Detected (Not Detect) U Benzodiazepines Scrn POSITIVE H (Not Detect) Urine Cocaine Screen POSITIVE H (Not Detect) U Marijuana (THC) Screen POSITIVE H (Not Detect) Ethyl Alcohol < 10 mg/dL Independent Interpretation I performed an independent interpretation of an: Plain X-Ray (4th metacarpal fx, index fracture) Radiology Impression Discussion of test interpretation with radiology: I have reviewed the radiologist's reading. External Record Review External record reviewed: Outpatient record Social Determinants Patient?s care significantly limited by Social Determinants of Health including: Problems related to primary support group Procedures Orthopedic Splinting/Casting Injury #1: Side: right Upper Extremity Injury Location: hand and finger Upper Extremity Immobilizer: volar splint (finger) Additional Comments: NV intact Discharge Plan Discharge Clinical Impression: PTSD (post-traumatic stress disorder), Polysubstance use disorder Fracture of hand Qualifiers: Encounter type: initial encounter Fracture type: closed Laterality: right Q ualified Code(s): S62.91XA - Unspecified fracture of right wrist and hand, initial encounter for closed fracture Patient Disposition: Home, Self-Care Additional Instructions: You have been accepted to [facility] for further treatment of your psychiatric illness/suicidal thoughts. On your x-ray you had a fracture of the middle phalanx of the index finger and a fracture of the neck of the 4th metacarpal-these fractures are 2-week-old . You were initially seen at [facility] and we reapplied the splint. Keep the splint on until your re-evaluated by the orthopedic group at [facility] or here at [facility]. I did refer you to our orthopedic group Behavioral health instructions: You were seen in our Emergency Department today for treatment of a behavioral health issue. It is important after your visit that you follow up with either your behavioral health provider or a primary care doctor within 7 days.? If you have trouble finding a therapist you can reach out to [address] [phone] The National Suicide and Crisis Lifeline can be reached 7 days a week 24 hours a day.? Call 988 to speak with someone.? Return for any worsening symptoms or concerns such as thoughts of self harm or harm to others. Please call 911 if you feel your mental health is worsening.? XR hand RT min 3V IMPRESSION: 1. Comminuted intra-articular fracture of the middle phalanx of the index finger. 2. Comminuted fracture of the neck of the 4th metacarpal. Electronically signed by: Benito Driscoll MD 04/04/2025 09:35 AM EDT Prescriptions: No Action chlorpromazine 25 mg Tablet 25 mg PO TID PRN (Reason: mild agitation) 30 Days Qty: 90 1RF paroxetine HCl 30 mg tablet 60 mg PO DAILY 30 Days Qty: 60 1RF nicotine (polacrilex) 2 mg lozenge 2 mg PO Q2H PRN (Reason: Nicotine Cravings) 30 Days Qty: 108 0RF Rx Instructions: DNE 20/DAY methadone [Methadose] 10 mg/mL concentrate 150 mg PO DAILY Rx Instructions: Partial Fill upon patient request. prazosin 2 mg capsule 6 mg PO BEDTIME lurasidone 40 mg tablet 40 mg PO DAILY hydroxyzine HCl 50 mg tablet 50 mg PO Q6H PRN (Reason: Anxiety) gabapentin 300 mg capsule 600 mg PO TID baclofen 20 mg tablet 20 mg PO BID nicotine 21 mg/24 hr patch 24 hour 1 patch topical DAILY quetiapine 100 mg tablet 100 mg PO BEDTIME clonidine HCl 0.1 mg tablet 0.1 mg PO TID ropinirole 1 mg tablet 1 mg PO BID trazodone 50 mg tablet 50 mg PO BEDTIME thiamine HCl (vitamin B1) 100 mg tablet 100 mg PO DAILY paroxetine HCl 30 mg tablet 30 mg PO DAILY pyridoxine (vitamin B6) 50 mg tablet 50 mg PO DAILY folic acid 1 mg tablet 1 mg PO DAILY hydroxyzine pamoate 25 mg capsule 25 mg PO TID evzrpjim-hps-tvyp fum-folic ac 7.5 mg iron-400 mcg tablet 1 tab PO DAILY baclofen 10 mg tablet 10 mg PO TID Referrals: Nanette Dorado MD [Physician, Hand Surgery] Referral Note: Fracture right hand 2 weeks prior.1. Comminuted intra- articular fracture of the middle phalanx of the index finger.2. Comminuted fracture of the neck of the 4th metacarpal. Initially seen at [facility]. Patient presented with SI and is being transferred to [facility] but advised to seek follow up when he is released Clinical Impression: Fracture of hand Interventions: Sebastian-Suicide Risk Severity Scale Last Done: 04/04/25 09:07 ED Discharge Assessment Last Done: 04/05/25 12:46 Discharge Date/Time: 04/05/25 12:47 Print Language: Portuguese
[2025-04-04 10:03] LABS: MANUAL DIFF FLAG NO
--- OUTSIDE RECORDS SUMMARY | 2025-04-04 10:04 | XMS_ITS | Clinical Summary ---
Author Organization [facility] Address [address] [place] [address] Phone Care Team Providers Care Wedger Machine Name Role Phone Physician, Pcp Unknown Primary [...] with meals. Active methadone (DOLOPHINE) 10 mg tabletIndication s:Opioid abuse (CMS/HCC V24, CMS/HCC V28) Take 18.5 [...] each 5 Active pramipexole (MIRAPEX) 0.125 mg tabletIndication s:restless leg syndrome Take 1 tablet (0.125 mg total) by mouth 3 (three) times a day. 90 each 5 Active naloxone (NARCAN) 4 mg/0.1 mL nasal sprayIndications :opioid overdose,opioid- induced respiratory depression Administer 1 each (4 mg total) into affected nostril(s) if needed for opioid reversal or respiratory depression. Give 4 mg (1 spray) into one nostril. May repeat every 2-3 minutes if needed, alternating nostrils, until medical assistance becomes available. 2 each 5 08/31/19 26 Active Active Problems Problem Noted Date Diagnosed Date Non-traumatic rhabdomyolysis 08/29/2024 Resolved Problems Problem Noted Date Diagnosed Date Resolved Date Rhabdomyolysis 08/29/2024 08/30/2024 Medical History Medical History Date Comments Substance abuse ([facility] V24, [facility] V28) Social History Tobacco Use Types Packs/Day Years Used Date Smoking Tobacco: Every Day Cigarettes 0.5 0.8 Started: 2024 Smokeless Tobacco: Never Tobacco Cessation:Ready [...] care for your loved ones. For example, children's entertainer or elderly care for an older adult? [...] Date Recorded What is your living situation? Unrecognized valu e 08/29/2024 Interpersonal Safety Answer Date Record ed Physical Abuse Unrecognized value 08/29/2024 Verbal Abuse Unrecognized value 08/29/2024 Sex and Gender Information Value Date [...] 69 08/30/2024 8:06 AM EDT Temperature 36.3 C (97.3 F) 08/30/2024 8:06 AM EDT Respiratory Rate 17 08/30/2024 8:06 AM EDT [...] Td Vaccines (1 - Tdap) 2009 Hepatitis A Vaccines (1 of 2 - Risk 2-dose series) 2009 Hepatitis B Vaccines (1 of 3 - 19+ 3-dose series) 2009 Pneumococcal Vaccine: Pediat rics (0 to 5 Years) and At-Risk Patients (6 to 49 Years) (1 of 2 - PCV) 2009 HPV Vaccines (1 - 3-dose SCD M series) 2017 Cholesterol Screening (Lipid Panel) 05/11/2022 HIV Screening 05/11/2022 Hepatitis C Screening 05/11/2022 Depression Screening 06/13/2024 COVID-19 Vaccine (2 - 2024-2 6 season) 2025 01/11/2022 Influenza Vaccine (#1) 2025 Social Influencers of Health Screening 08/29/2025 08/29/2024 RSV Immunization Adult Patie nts (1 - 1-dose 75+ series) 2065 HIB Vaccines Aged Out No longer eligi [...] on patient's age to complete this topic Insurance [facility] Advance Directives * Full Code - [...] currently active code status orders. Care Teams Wedger Machine Relationship Specialty Start Date End Date Physician, Pcp Unknown PCP - General 08/29/24
[2025-04-04 10:05] LABS: Hematocrit 35.3 % (42.0-52.0); Hemoglobin 11.6 g/dl (14.0-18.0); Imm Gran Abs Auto 0.01 X10*3/uL (0.00-0.03); Imm Gran Pct Auto 0.2 % (0.0-0.4); Lymphocytes Absolute Auto 1.7 X10*3/uL (1.2-4.9); Mean Corpuscular HGB Conc 32.9 g/dl (31.0-36.0); Mean Corpuscular Hemoglobin 28.0 pg (27.0-33.0); Mean Corpuscular Volume 85.3 fL (80.0-98.0); NRBC Abs Auto 0.000 X10*3/uL (0.0-0.012); NRBC Pct Auto 0.0 /100WBC (0.0-0.2); Platelet Count 254 X10*3/uL (160-400); Red Blood Count 4.14 X10*6/uL (4.60-5.80); White Blood Count 6.7 X10*3/uL (4.8-10.8)
[2025-04-04 10:26] LABS: Alanine Aminotransferase 117 U/L (0-40); Albumin Level 4.5 g/dL (3.5-5.0); Alkaline Phosphatase 76 U/L (39-117); Anion Gap 13 (12-20); Aspartate Amino Transferase 153 U/L (5-37); Blood Urea Nitrogen 21 mg/dL (9-16); Calcium 9.0 mg/dL (8.4-10.2); Carbon Dioxide 26 mmol/L (22-29); Chloride 107 mmol/L (96-108); Creatinine Clr Calc Pharmacy 151.3; Estimated Glomerular Filt Rate > 60; Magnesium 2.3 mg/dL (1.6-2.6); Potassium 3.6 mmol/L (3.3-5.1); Sodium 142 mmol/L (135-145); Total Protein 7.1 g/dL (6.5-8.0)
--- NOTE | 2025-04-04 13:17 | ECG_ITS ---
Test Reason : CHECK PROLONG QT Blood Pressure : */* mmHG Vent. Rate : 55 BPM Atrial Rate : 55 BPM P-R Int : 154 ms QRS Dur : 80 ms QT Int : 450 ms P-R-T Axes : 10 56 48 degrees QTcB Int : 430 ms Sinus bradycardia with sinus arrhythmia Cannot rule out Anterior infarct , age undetermined Abnormal ECG When compared with ECG of 14-Dec-2024 11:40, Nonspecific T wave abnormality now evident in Anterior leads Referred By: Hannah Santos Electronically Signed By: RICARDO DEL CASTILLO MD
[2025-04-04 13:28] LABS: Appearance Urine Cloudy; Glucose Urine UA Negative (Negative); PH 6.0 (5.0-9.0); Specific Gravity - Urine >= 1.030 (1.005-1.025); UMIC TRIGGER UACC YES
--- NOTE | 2025-04-04 13:39 | PC.NURSE ---
Verified methadone with [facility]- Pt last dosed there on 03/21 at 150mg. Pt reports that he has been dosing with [facility] up until four days ago. Attempted to reach call [facility] twice, placed on hold for 10 minute intervals, unable to get in contact with staff at [facility] at this time
[2025-04-04 13:42] LABS: Cannabinoid Screen Urine POSITIVE (Not Detect)
[2025-04-04 17:30] VITALS: BP 98/57; PULSE 69; RESP 17; TEMP 36.9; O2SAT 97
[2025-04-04 21:53] VITALS: BP 94/54; PULSE 73; RESP 16; TEMP 36.3; O2SAT 95
[2025-04-04 22:09] VITALS: BP 94/54
[2025-04-05 06:32] VITALS: BP 105/66; PULSE 68; RESP 16; TEMP 36.9; O2SAT 97
[2025-04-05] MEDS: Nicotine 21 MG PATCH.TD24 TRANSDERMA (08:36)
--- NOTE | 2025-04-05 08:43 | PC.NURSE ---
Pt refusing all meds until he gets his methadone. RN attempted twice yesterday to get dose confirmation. will attempt again. Pt continues to be agitated and demanding to be placed in a room
--- NOTE | 2025-04-05 09:54 | HE.PHANOTE ---
Methadone Methadone verification form received. Patient gets Methadone [address] [facility] ). Last dose was 04/04/25 @0700 per Ayala . YOHAN verified - Carola Jamil
[2025-04-05] MEDS: methADONE HCl 20 MG/2 ML ORAL.CONC 150 MG PO (10:56)
--- NOTE | 2025-04-05 10:58 | MHC.CARE ---
Has been accepted to [facility] for today. ETA is 2pm and the accepting provider is Dr. Hitchcock. The address is [address] [place] [address]. The CARE Team has been notified and will work on 12. No n2n required by the facility.
[2025-04-05 11:20] VITALS: BP 113/64; PULSE 51; RESP 12; TEMP 36.6; O2SAT 95
[2025-04-05 12:45] VITALS: BP 113/64; PULSE 51; RESP 12; TEMP 36.6; O2SAT 95
[2025-04-05 12:46] VITALS: BP 113/64; PULSE 51; RESP 12; TEMP 36.6; O2SAT 95
== END 2025-04-05 12:47 | disposition home or self-care (01) ==
PROVIDERS: Emergency Provider Emergency Medicine; PCP Nurse Practitioner Family
DX: R45.851 Suicidal ideations (principal); F33.3 Major depressive disorder, recurrent, severe with psychotic symptoms; F11.20 Opioid dependence, uncomplicated; F10.90 Alcohol use, unspecified, uncomplicated; F43.10 Post-traumatic stress disorder, unspecified; F17.210 Nicotine dependence, cigarettes, uncomplicated; S62.91XA Unspecified fracture of right hand, initial encounter for closed fracture; X58.XXXA Exposure to other specified factors, initial encounter; Y93.9 Activity, unspecified; Y92.9 Unspecified place or not applicable; Y99.9 Unspecified external cause status; Z59.00 Homelessness unspecified
CPT/HCPCS: 36415; 73130; 80048; 80076; 80307; 81001; 83735; 85025; 93005; 99285; S9485

== ENCOUNTER → 2025-04-04 09:20 | Outpatient (BNV) | payer OTHER, SELFPAY | PROVIDERS: Emergency Provider Emergency Medicine; PCP Nurse Practitioner Family; Visit Provider Radiology Diagnostic Radiology | DX: S62.620A Displaced fracture of middle phalanx of right index finger, initial encounter for closed fracture (principal); S62.334A Displaced fracture of neck of fourth metacarpal bone, right hand, initial encounter for closed fracture | CPT/HCPCS: 73130 ==

== ENCOUNTER → 2025-04-04 13:17 | Outpatient (BNV) | payer OTHER, SELFPAY | PROVIDERS: Emergency Provider Emergency Medicine; PCP Nurse Practitioner Family; Visit Provider Internal Medicine Cardiovascular Disease | DX: R00.1 Bradycardia, unspecified (principal); I49.9 Cardiac arrhythmia, unspecified | CPT/HCPCS: 93010 ==

== ENCOUNTER 2025-05-22 10:46 | Emergency (ER) | payer OTHER, SELFPAY ==
[2025-05-22 10:54] VITALS: BP 123/81; PULSE 74; O2SAT 97
[2025-05-22 10:55] VITALS: RESP 14; BMI 33.0
--- NOTE | 2025-05-22 11:14 | PC.NURSE ---
Jovany presents to the ED today reporting suicidal ideation with a plan to overdose on street drugs. He endorses large amounts of cocaine use over the past few days, reporting that he used $200 worth of cocaine today . Pt denies CP, SOB. Pt has hisotry of chronic SI related to homelessness. Pt most recently admitted to [facility] from this facility. he reports he would like to go inpatient here and would not like to return to [facility]. Pt aware of plan of care for medical clearance and CARE team evaluation after
[2025-05-22 11:16] VITALS: BP 142/89; PULSE 75; RESP 14; TEMP 37.2; O2SAT 98
[2025-05-22 11:43] LABS: Hematocrit 37.8 % (42.0-52.0); Hemoglobin 12.8 g/dl (14.0-18.0); Imm Gran Abs Auto 0.02 X10*3/uL (0.00-0.03); Imm Gran Pct Auto 0.3 % (0.0-0.4); Lymphocytes Absolute Auto 1.1 X10*3/uL (1.2-4.9); Mean Corpuscular HGB Conc 33.9 g/dl (31.0-36.0); Mean Corpuscular Hemoglobin 28.1 pg (27.0-33.0); Mean Corpuscular Volume 82.9 fL (80.0-98.0); NRBC Abs Auto 0.000 X10*3/uL (0.0-0.012); NRBC Pct Auto 0.0 /100WBC (0.0-0.2); Platelet Count 247 X10*3/uL (160-400); Red Blood Count 4.56 X10*6/uL (4.60-5.80); White Blood Count 7.5 X10*3/uL (4.8-10.8)
--- NOTE | 2025-05-22 11:44 | ED.PSYCH ---
HPI - Psych General Chief Complaint: Psychiatric Symptoms Stated Complaint: SI W/PLAN PER EMS Time Seen by Provider: 05/22/25 10:48 Source: patient and EMS Mode of arrival: EMS Limitations: no limitations History of Present Illness ED Provider: MONICA Keith HPI Narrative: Chief Complaint: ?I feel shaky and I don?t want to be alive anymore.? History of Present Illness: 34-year-old male with a history of opioid use disorder on methadone maintenance (missed dose today) presents reporting shakiness and suicidal ideation with a plan to overdose on street drugs due to increasing life stressors. Over the past few days he has used approximately $200 worth of cocaine. He drinks alcohol daily but has not consumed alcohol today; he has a history of alcohol-withdrawal seizures. He describes feeling shaky and anxious but ?overall feeling okay? and is actively seeking help. The differential for his shakiness includes cocaine intoxication and early alcohol withdrawal. He agrees to receive medications and further evaluation. Related Data Home Medications ?Medication ?Instructions ?Recorded ?Confirmed methadone 10 mg/mL oral 150 mg PO DAILY 08/14/24 05/22/25 concentrate (Methadose) baclofen 10 mg tablet 10 mg PO TID 05/22/25 05/22/25 chlorpromazine 25 mg tablet 25 mg PO TID 05/22/25 05/22/25 clonidine HCl 0.2 mg tablet 0.2 mg PO TID 05/22/25 05/22/25 diphenhydramine HCl 50 mg capsule 50 mg PO BEDTIME 05/22/25 05/22/25 gabapentin 600 mg tablet 600 mg PO TID 05/22/25 05/22/25 hydroxyzine pamoate 50 mg capsule 50 mg PO TID 05/22/25 05/22/25 nicotine (polacrilex) 4 mg buccal 4 mg PO Q2H PRN Nicotine Cravings 05/22/25 05/22/25 lozenge nicotine 21 mg/24 hr daily 1 patch topical DAILY 05/22/25 05/22/25 transdermal patch paroxetine HCl 30 mg tablet 30 mg PO DAILY 05/22/25 05/22/25 prazosin 5 mg capsule 5 mg PO BEDTIME 05/22/25 05/22/25 Allergies Allergy/AdvReac Type Severity Reaction Status Date / Time amoxicillin Allergy Hives Verified 05/22/25 10:57 Penicillins (PCN) Allergy Hives Verified 05/22/25 10:57 seafood Allergy Difficulty Verified 05/22/25 10:57 Breathing Review of Systems Review of Systems: Yes all other systems are reviewed and are negative [facility] Past Medical History Attestation statement: The following information was validated with the patient. Source: old records reviewed and nursing notes reviewed Medical History Polysubstance use disorder Opioid use disorder Depression Antisocial personality disorder Cocaine use disorder, moderate, dependence Benzodiazepine abuse MDD (major depressive disorder), recurrent, severe, with psychosis Alcohol use disorder Mood disorder PTSD (post-traumatic stress disorder) Polysubstance (including opioids) dependence, daily use Social History Social History Household Members: None Household Members Other:: homeless Housing: Homeless Do you presently have visiting nurse or other home services: No Alcohol intake: current Alcohol intake frequency: a few times a month Alcohol type: hard liquor Comment: Pt ambulates independently Patient Tobacco Use Status: Current everyday Tobacco user Tobacco use type: Cigarette Cigarette Packs Per Day: 1 Cigarettes Per Day: 5 Years Smoked: 20 Smoked in Last 30 Days: No e-Cigarette/Vaping Use: Never Used Second Hand Smoke Exposure: No Use of substances other than those prescribed or required for medical reasons: Yes Substance Use Type: Crack/Cocaine Substance Use Frequency: Chronic Longstanding Last Used Substance: Just Prior to Admission Any prior treatment program specific to substance use: Yes Advance Directives: No Advance Directives Information Provided: No service: No Current occupational status: unemployed Sexual orientation: Straight/Heterosexual Physical Exam Exam: Exam: Appearance: Alert.? Oriented X3.? No acute distress.? Head: Normocephalic, atraumatic, no step-offs or deformities Eyes: Pupils equal, round and reactive to light.? Neck: Normal inspection.? Neck supple.? CVS: Normal heart rate and rhythm.? Pulses normal.? Respiratory: No respiratory distress.? Breath sounds normal.? Abdomen: Soft and nontender.? Skin: Skin warm and dry.? Normal skin color.? Normal skin turgor.? Extremities: No lower extremity edema.? No calf ttp. 5/5 strength to bilateral upper and lower extremities Back: No midline tenderness, no C-spine tenderness, full range of motion, no CVA tenderness bilaterally Neuro: Oriented X 3.? No motor deficit.? No sensory deficit. CN 2-12 intact Vital Signs: Vital Signs: Last Vital Signs Temp 98.3 F 05/23/25 07:56 Pulse 101 H 05/23/25 07:56 Resp 20 05/23/25 07:56 BP 126/70 05/23/25 07:56 Pulse Ox 98 05/23/25 07:56 O2 Del Method Room Air 05/23/25 07:56 BMI result Body Mass Index 33.0 vss Course Reevaluation(s) Reevaluation #1: CBC unremarkable. Chemistry with no acute findings needing intervention. Urine still pending. Urine toxicology still pending however ethanol is negative. At this time patient will be placed into observation to allow more time to be evaluated by care team. Med rec in urine or still pending. Will put him those meds as soon as they are reconciled Time: 12:53 Reevaluation #2: Patient will be a dual diagnosis bed search. Her [facility] care team. 1:04 PM 05/23/2025 (Dr. Mario Harris): BH7 Jovany Graves 34M, accepted to [facility] located @ [address] [place] [address], ETA is 5PM, n2n is not needed. Accepting Dr. Pathak . Time: 13:52 Medications Administered Generic Name Dose Route Start Last Admin Trade Name Freq PRN Reason Stop Dose Admin Baclofen 10 mg 05/22/25 21:00 05/23/25 09:42 Baclofen 10 Mg Tablet PO 10 mg TID BESSIE Administration Chlorpromazine HCl 25 mg 05/22/25 21:00 05/23/25 08:05 Chlorpromazine Hcl 25 Mg Tablet PO 25 mg TID BESSIE Administration Clonidine HCl 0.2 mg 05/22/25 21:00 05/23/25 08:05 Clonidine Hcl 0.2 Mg Tablet PO 0.2 mg TID BESSIE Administration Protocol Diphenhydramine HCl 50 mg 05/22/25 21:00 05/22/25 21:48 Diphenhydramine Hcl 25 Mg Capsule PO 50 mg BEDTIME BESSIE Administration Gabapentin 600 mg 05/22/25 21:00 05/23/25 08:05 Gabapentin 600 Mg Tablet PO 600 mg TID BESSIE Administration Hydroxyzine HCl 50 mg 05/22/25 21:00 05/23/25 08:05 Hydroxyzine Hcl 50 Mg Tablet PO 50 mg TID BESSIE Administration Methadone HCl 150 mg 05/23/25 08:00 05/23/25 08:06 Methadone Hcl 20 Mg/2 Ml Oral.Conc PO 150 mg DAILY@0800 BESSIE Administration Nicotine 21 mg 05/23/25 09:00 05/23/25 08:06 Nicotine 21 Mg Patch.Td24 TRANSDERMA 21 mg DAILY BESSIE Administration Nicotine Polacrilex 4 mg 05/22/25 18:46 05/23/25 09:42 Nicotine Polacrilex Lozenge 4 Mg Lozenge BUCCAL 4 mg Q2H PRN Administration Nicotine Cravings Paroxetine HCl 30 mg 05/23/25 09:00 05/23/25 09:42 Paroxetine Hcl 30 Mg Tablet PO 30 mg DAILY BESSIE Administration Prazosin HCl 5 mg 05/22/25 21:00 05/22/25 21:48 Prazosin Hcl 5 Mg Capsule PO 5 mg BEDTIME BESSIE Administration Protocol Discontinued Medications Generic Name Dose Route Start Last Admin Trade Name Freq PRN Reason Stop Dose Admin Lorazepam 2 mg 05/22/25 12:27 05/22/25 12:51 Lorazepam 1 Mg Tablet PO 05/22/25 12:28 2 mg ONCE ONE Administration Methadone HCl 150 mg 05/22/25 18:55 05/22/25 19:18 Methadone Hcl 20 Mg/2 Ml Oral.Conc PO 05/22/25 18:56 150 mg ONCE ONE Administration Medical Decision Making Medical Decision Making MDM Narrative: 34-year-old male with polysubstance use presenting with shakiness likely related to recent heavy cocaine use and/or impending alcohol withdrawal, along with active suicidal ideation. Will administer symptomatic treatment, address missed methadone dose, and pursue psychiatric evaluation for safety. Problem #1: Suicidal ideation Assessment: Patient endorses not wanting to live and has a plan to overdose on street drugs. High risk given active plan and polysubstance use. Plan: Consult behavioral health / crisis team for full psychiatric evaluation and determination of need for inpatient admission. Problem #2: Substance-induced shakiness (cocaine use vs. alcohol withdrawal) Assessment: Shakiness after using ~$200 worth of cocaine over several days; daily alcohol use with risk of withdrawal. Plan: Administer 2 mg PO lorazepam now; monitor for alcohol withdrawal symptoms. Patient reports daily alcohol use but has not consumed alcohol today, increasing risk for withdrawal. Problem #3: Opioid use disorder ? missed methadone dose Assessment: On methadone maintenance; has not received today?s dose. Plan: Verify methadone dose with treatment program. Administer verified methadone dose when confirmed. Differential Diagnosis Differential Diagnoses: The differential diagnosis associated with the presentation includes Cocaine intoxication/withdrawal: Recent heavy cocaine use may cause acute anxiety, agitation, and tremulousness. Withdrawal can also present with mood changes and somatic symptoms. Alcohol withdrawal: Daily alcohol use with abrupt cessation today and history of withdrawal seizures places patient at high risk for withdrawal symptoms, including tremor, anxiety, and possible seizures. Opioid withdrawal (missed methadone): Missing a scheduled methadone dose may contribute to anxiety, dysphoria, and physical symptoms, though classic opioid withdrawal features are not prominent in the transcript. Primary psychiatric disorder (e.g., major depressive disorder, anxiety disorder): Suicidal ideation and anxiety may be manifestations of an underlying mood or anxiety disorder, especially in the context of psychosocial stressors. Other medical causes (e.g., metabolic derangements, infection): Less likely but should be considered, as metabolic abnormalities or infection can present with altered mental status or tremulousness. Admission/Observation Consideration of admission/observation: Escalation of care including admission/observation considered Consult Healthcare Provider Management of the patient was discussed with: Behavioral Health Provider Lab Data MDM Lab Attestation statement: I reviewed the patient's lab results. 05/22/25 11:24 05/22/25 11:24 Labs: Lab Results 05/22/25 05/22/25 Range/Units 11:24 14:08 WBC 7.5 (4.8-10.8) X10*3/uL RBC 4.56 L (4.60-5.80) X10*6/uL Hgb 12.8 L (14.0-18.0) g/dl Hct 37.8 L (42.0-52.0) % MCV 82.9 (80.0-98.0) fL MCH 28.1 (27.0-33.0) pg MCHC 33.9 (31.0-36.0) g/dl RDW 13.9 (11.0-16.0) % Plt Count 247 (160-400) X10*3/uL MPV 10.1 (9.4-12.4) fL Immature Gran % (Auto) 0.3 (0.0-0.4) % Neut % (Auto) 78.4 H (45-73) % Lymph % (Auto) 14.6 L (20-40) % [place] % (Auto) 5.5 (2-11) % Eos % (Auto) 0.9 (0-4) % Baso % (Auto) 0.3 (0-2) % Lymph # (Auto) 1.1 L (1.2-4.9) X10*3/uL [place] # (Auto) 0.4 (0.1-1.2) X10*3/uL Eos # (Auto) 0.1 (0.0-0.4) X10*3/uL Baso # (Auto) 0.0 (0.0-0.2) X10*3/uL Abs Immat Gran (auto) 0.02 (0.00-0.03) X10*3/uL Absolute Neuts (auto) 5.8 (2.0-8.3) x10*3/uL Absolute Nucleated RBC 0.000 (0.0-0.012) X10*3/uL Nucleated RBC % (auto) 0.0 (0.0-0.2) /100WBC Sodium 137 (135-145) mmol/L Potassium 3.5 (3.3-5.1) mmol/L Chloride 105 (96-108) mmol/L Carbon Dioxide 25 (22-29) mmol/L Anion Gap 11 L (12-20) BUN 23 H (9-16) mg/dL Creatinine 0.69 (0.5-1.4) mg/dL Estim Creat Clear Calc 182.4 Estimated GFR > 60 Random Glucose 151 H (60-115) mg/dL Calcium 9.2 (8.4-10.2) mg/dL Magnesium 2.3 (1.6-2.6) mg/dL Total Bilirubin 0.5 (0.0-1.0) mg/dL AST 49 H (5-37) U/L ALT 24 (0-40) U/L Alkaline Phosphatase 65 (39-117) U/L Total Protein 7.8 (6.5-8.0) g/dL Albumin 4.8 (3.5-5.0) g/dL Urine Color Yellow Urine Appearance Clear Urine pH 6.5 (5.0-9.0) Ur Specific Gray >= 1.030 H (1.005-1.025) Urine Protein Trace (Neg-Trace) mg/dL Urine Glucose (UA) Negative (Negative) mg/dL Urine Ketones Negative (Negative) mg/dL Urine Blood Negative (Negative) Urine Nitrite Negative (Negative) Ur Leukocyte Esterase Negative (Negative) Urine Opiates Screen POSITIVE H (Not Detect) Ur Buprenorphine Scrn Not Detected (Not Detect) ng/mL Ur Oxycodone Screen Not Detected (Not Detect) ng/mL Urine Methadone Screen Positive H (Not Detect) ng/mL Urine Fentanyl Screen POSITIVE H (Not Detect) Ur Barbiturates Screen Not Detected (Not Detect) Ur Phencyclidine Scrn Not Detected (Not Detect) Ur Amphetamines Screen Not Detected (Not Detect) U Benzodiazepines Scrn Not Detected (Not Detect) Urine Cocaine Screen POSITIVE H (Not Detect) U Marijuana (THC) Screen Not Detected (Not Detect) Ethyl Alcohol < 10 mg/dL Critical Care Time Critical Care Time Critical Care Time: No Discharge Plan Discharge Clinical Impression: Depression, Cocaine use disorder, moderate, dependence Prescriptions: No Action methadone [Methadose] 10 mg/mL concentrate 150 mg PO DAILY Rx Instructions: Partial Fill upon patient request. gabapentin 600 mg tablet 600 mg PO TID prazosin 5 mg capsule 5 mg PO BEDTIME diphenhydramine HCl 50 mg capsule 50 mg PO BEDTIME hydroxyzine pamoate 50 mg capsule 50 mg PO TID clonidine HCl 0.2 mg tablet 0.2 mg PO TID baclofen 10 mg tablet 10 mg PO TID paroxetine HCl 30 mg tablet 30 mg PO DAILY chlorpromazine 25 mg tablet 25 mg PO TID nicotine 21 mg/24 hr patch 24 hour 1 patch topical DAILY nicotine (polacrilex) 4 mg lozenge 4 mg PO Q2H PRN (Reason: Nicotine Cravings) Referrals: ARMANDO LOFTON [Primary Care Provider, Internal Medicine] Interventions: [place]-Suicide Risk Severity Scale Last Done: 05/22/25 19:56 Print Language: Czech
[2025-05-22 11:51] LABS: Alanine Aminotransferase 24 U/L (0-40); Albumin Level 4.8 g/dL (3.5-5.0); Alkaline Phosphatase 65 U/L (39-117); Anion Gap 11 (12-20); Aspartate Amino Transferase 49 U/L (5-37); Blood Urea Nitrogen 23 mg/dL (9-16); Calcium 9.2 mg/dL (8.4-10.2); Carbon Dioxide 25 mmol/L (22-29); Chloride 105 mmol/L (96-108); Creatinine Clr Calc Pharmacy 182.4; Estimated Glomerular Filt Rate > 60; Magnesium 2.3 mg/dL (1.6-2.6); Potassium 3.5 mmol/L (3.3-5.1); Sodium 137 mmol/L (135-145); Total Protein 7.8 g/dL (6.5-8.0)
--- NOTE | 2025-05-22 13:26 | MHC.CARE ---
Pt will be dual dx bed search. Section 12a in chart for safety
[2025-05-22 14:23] LABS: Appearance Urine Clear; Glucose Urine UA Negative (Negative); PH 6.5 (5.0-9.0); Specific Gravity - Urine >= 1.030 (1.005-1.025)
[2025-05-22 14:32] LABS: Cannabinoid Screen Urine Not Detected (Not Detect)
--- NOTE | 2025-05-22 18:30 | PC.NURSE ---
RE: med rec This RN completed patient's med rec with verbal confirmation from patient as well as matching to medical records
--- NOTE | 2025-05-22 18:38 | HE.PHANOTE ---
Methadone verified 150 mg, last dose given 05/21/25 at [place] [facility]
--- NOTE | 2025-05-22 18:58 | PHA.MEDREC ---
Pharmacy Consult ? Medication Reconciliation Pharmacy has reviewed the medication reconciliation done by nursing.
[2025-05-22] MEDS: methADONE HCl 20 MG/2 ML ORAL.CONC 150 MG PO (19:18)
[2025-05-22] MEDS: Nicotine Polacrilex Lozenge 4 MG LOZENGE BUCCAL ×2 (19:55→22:11)
[2025-05-22 22:09] VITALS: BP 108/52; PULSE 94; RESP 18; O2SAT 96
[2025-05-23] MEDS: Nicotine Polacrilex Lozenge 4 MG LOZENGE BUCCAL ×4 (00:48→13:20)
--- NOTE | 2025-05-23 06:00 | PC.NURSE ---
Care team staff member Leyla requested that this RN contact [facility] this morning to obtain a good standing letter for this pt, as this document is needed for potential admission to [facility]. This RN spoke with Genie at [facility], who reported she was unsure what a good standing letter is but stated she would have one of her coworkers return to the call around [phone].
--- NOTE | 2025-05-23 07:17 | PC.NURSE ---
Assumed care, report received. Pt is currently sleeping, safety is maintained.
[2025-05-23 07:56] VITALS: BP 126/70; PULSE 101; RESP 20; TEMP 36.8; O2SAT 98
[2025-05-23] MEDS: Nicotine 21 MG PATCH.TD24 TRANSDERMA (08:06)
[2025-05-23] MEDS: methADONE HCl 20 MG/2 ML ORAL.CONC 150 MG PO (08:06)
--- NOTE | 2025-05-23 13:33 | MHC.CARE ---
Patient has been accepted to [facility] located @ [address] [place] [id number], ETA is 5PM, n2n is not needed. Accepting Dr. Pathak . 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
== END 2025-05-23 14:36 ==
PROVIDERS: Physician Assistant; Emergency Provider Emergency Medicine; PCP Nurse Practitioner Family
DX: F32.A Depression, unspecified (principal); F14.24 Cocaine dependence with cocaine-induced mood disorder; R45.851 Suicidal ideations; F11.20 Opioid dependence, uncomplicated; F17.210 Nicotine dependence, cigarettes, uncomplicated; F43.10 Post-traumatic stress disorder, unspecified; Z79.899 Other long term (current) drug therapy
CPT/HCPCS: 36415; 80053; 80307; 81003; 83735; 85025; 99284; S9485

== ENCOUNTER 2025-06-05 20:40 | Emergency (ER) | payer OTHER, SELFPAY ==
--- OUTSIDE RECORDS SUMMARY | 2025-05-31 14:48 | XMS_ITS | Continuity of Care Document ---
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 Role Phone Not on Staff, PCP Primary Care Physician Unavail able Encounter [facility] Date(s): 05/30/25 - 05/31/[address] [address]- Encounter Diagnosis Suicidal ideation(Final) - 05/31/25 Has access to firearm(Final) - 05/31/25 Cocaine use(Final) - 05/31/25 Marijuana use(Final) - 05/31/25 Discharge Disposition: Transfer to [facility] Attending Physician: Marisa Young MD Admitting Physician: Marisa Young MD Referring Physician: Not on Staff, Referring MD Encounter Type: Disch ES Allergies, Adverse Reactions, Alerts Substance Criticality Severity Reaction Reaction Severity Status amoxicillin Active penicillins Active Seafood Active Immunizations Given and Recorded Vaccine Date Status Refusal Reason tetanus/diphtheria/pertussis, acel(Tdap) 03/16/25 Given tetanus/diphtheria/pertussis, acel(Tdap) 05/17/19 Given tetanus/diphtheria/pertussis, acel(Tdap) 01/10/19 Given SARS-CoV-2 mRNA ([id number]) vax 01/11/22 Recorded tetanus-diphtheria toxoids (Td) 02/08/03 Given Varicella Virus Vaccine 03/06/97 Given Measles/Mumps/Rubella Virus Vaccine 02/24/96 Given Measles/Mumps/Rubella Virus Vaccine 06/09/92 Given Miscellaneous Vaccine 1 02/14/96 Given Miscellaneous Vaccine 2 08/07/92 Given Miscellaneous Vaccine 3 05/28/91 Given Miscellaneous Vaccine 4 02/19/91 Given Diphth/Pertussis, Whl Cell/Tet(oldterm) 02/14/96 G iven Diphth/Pertussis, Whl Cell/Tet(oldterm) 08/07/92 G iven Diphth/Pertussis, Whl Cell/Tet(oldterm) 07/11/91 G iven Diphth/Pertussis, Whl Cell/Tet(oldterm) 05/28/91 G iven Diphth/Pertussis, Whl Cell/Tet(oldterm) 02/19/91 G iven Hepatitis B Vaccine (old term) 08/28/95 Given Hepatitis B Vaccine (old term) 12/27/94 Given Hepatitis B Vaccine (old term) 11/24/94 Given Haemophilus B Conj Vaccine (oldterm) 06/09/92 Give n Haemophilus B Conj Vaccine (oldterm) 07/11/91 Give n Haemophilus B Conj Vaccine (oldterm) 05/28/91 Give n Haemophilus B Conj Vaccine (oldterm) 02/19/91 Give n 1Admin Note: OPV 2Admin Note: OPV 3Admin Note: OPV 4Admin Note: OPV Medications acamprosate 333 mg oral delayed release tablet = 666 mg, By Mouth, 3 times a day with meals, please call PCP for refill, # 90 each, 0 Refills, Maintenance, 03/19/25 12:29:00 PM EDT, Tablet, [facility], Partial fill upon patient request if the prescription is for a schedule II opioid drug., 177, cm, 03/15/25 19:29:00 EDT, Height, 86, kg, 03/15/25 19:29:00 EDT, Dry Weight Start Date: 03/19/25 Status: Ordered Medication Dispense Status: Completed Quantity: 90.0 Unit: each Total Allowed Fills: 1 Fills Dispensed: 0 acetaminophen 325 mg oral tablet 650 mg, By Mouth, Every 6 hours, PRN, /Headache, # 90 tablet, Refills 0, Tot. Refills 0, Maintenance, Pain , Mild, 06/28/24 10:20:00 AM EST, Print Requisition, Partial fill upon patient request if theprescription is for a schedule II opioid drug. Start Date: 06/28/24 Status: Ordered Medication Dispense Status: Completed Quantity: 90.0 Unit: tablet Total Allowed Fills: 1 Fills Dispensed: 0 albuterol CFC free 90 mcg/inh inhalation aerosol 180 mcg, 2, puffs, Inhalation, Every 4 hours, PRN, # 6.7 Gm, Refills 0, Tot. Refills 0, Maintenance, 06/28/24 10:20:00 AM EST, Inhaler, Print Requisition Start Date: 06/28/24 Status: Ordered Medication Dispense Status: Completed Quantity: 6.7 Unit: g Total Allowed Fills: 1 Fills Dispensed: 0 baclofen 10 mg oral tablet 20 mg, By Mouth, 3 times a day, Refills 0, Maintenance, 11/12/24 9:22:00 AM EDT, Partial fill upon patient request if the prescription is for a schedule II opioid drug. Start Date: 11/12/24 Status: Ordered Medication Dispense Status: Completed Total Allowed Fills: 1 Fills Dispensed: 0 baclofen 10 mg oral tablet 10 mg, Tablet, By Mouth, 05/31/25 9:00:00 AM EST Start Date: 05/31/25 Stop Date: 05/31/25 Status: Completed Medication Dispense Status: Completed Total Allowed Fills: 1 Fills Dispensed: 0 chlorproMAZINE 25 mg oral tablet 1 tablet = 25 mg, By Mouth, 2 times a day, as needed, # 180 tablet, 0 Refills, Maintenance, 03/16/2510:07:00 AM EDT, Tablet, Partial fill upon patient request if the prescription is for a schedule IIopioid drug. Start Date: 03/16/25 Status: Ordered Medication Dispense Status: Completed Quantity: 180.0 Unit: tablet Total Allowed Fills: 1 Fills Dispensed: 0 cloNIDine 0.1 mg oral tablet 0.1 mg, By Mouth, 3 times a day, as needed, # 30 tablet, Refills 0, Maintenance, 01/26/25 3:37:00 PMEDT, Partial fill upon patient request if the prescription is for a schedule II opioid drug. Start Date: 01/26/25 Status: Ordered Medication Dispense Status: Completed Quantity: 30.0 Unit: tablet Total Allowed Fills: 1 Fills Dispensed: 0 folic acid 1 mg oral tablet 1 mg, By Mouth, Daily, # 60 each, Refills 0, Tot. Refills 0, Maintenance, 03/19/25 12:30:00 PM EDT, Route to Pharmacy Electronically, [facility], Partial fill upon patient request if theprescription is for a schedule II opioid drug., 177, cm, 03/15/25 19:29:00 EDT, Height, 86, kg, 03/15/25 19:29:00 EDT, Dry Weight Start Date: 03/19/25 Status: Ordered Medication Dispense Status: Completed Quantity: 60.0 Unit: each Total Allowed Fills: 1 Fills Dispensed: 0 gabapentin 300 mg oral capsule 600 mg, By Mouth, 3 times a day, Refills 0, Maintenance, 11/12/24 9:21:00 AM EDT, Partial fill upon patient request if the prescription is for a schedule II opioid drug. Start Date: 11/12/24 Status: Ordered Medication Dispense Status: Completed Total Allowed Fills: 1 Fills Dispensed: 0 gabapentin 300 mg oral capsule 600 mg, Capsule, By Mouth, 05/31/25 9:00:00 AM EST Start Date: 05/31/25 Stop Date: 05/31/25 Status: Completed Medication Dispense Status: Completed Total Allowed Fills: 1 Fills Dispensed: 0 LORazepam 1 mg oral tablet 1 tablet = 1 mg, By Mouth, 3 times a day, PRN for anxiety, for 3 days then 03/16/2025 dose decreaseto twice daily and then after 03/20/2025 take as needed, 0 Refills, Maintenance, 03/16/25 10:08:00 AM EDT, Tablet, Partial fill upon patient request if the prescription is for a schedule II opioid drug. Start Date: 03/16/25 Status: Ordered Medication Dispense Status: Completed Total Allowed Fills: 1 Fills Dispensed: 0 lurasidone 40 mg oral tablet = 40 mg, By Mouth, Daily at supper, 0 Refills, Maintenance, 11/12/24 9:22:00 AM EDT, Tablet, Partial fill upon patient request if the prescription is for a schedule II opioid drug. Start Date: 11/12/24 Status: Ordered Medication Dispense Status: Completed Total Allowed Fills: 1 Fills Dispensed: 0 Methadone = 150 mg, By Mouth, Daily, [facility] [place] [phone], 0 Refills, Maintenance, 01/27/2510:17:00 AM EDT, Partial fill upon patient request if the prescription is for a schedule II opioid drug. Start Date: 01/27/25 Status: Ordered Medication Dispense Status: Completed Total Allowed Fills: 1 Fills Dispensed: 0 Multiple Vitamins with Minerals and Essential Fatty Acids oral capsule 1 each, By Mouth, Daily, # 60 each, 0 Refills, Maintenance, 03/19/25 12:30:00 PM EDT, Capsule, [facility] 3, Partial fill upon patient request if the prescription is for a schedule II opioid drug., 1 each By Mouth Daily, 177, cm, 03/15/25 19:29:00 EDT, Height, 86, kg, 03/15/25 19:29:00 EDT, Dry Weight Start Date: 03/19/25 Status: Ordered Medication Dispense Status: Completed Quantity: 60.0 Unit: each Total Allowed Fills: 1 Fills Dispensed: 0 Nicoderm C-Q Clear 21 mg/24 hr transdermal film, extended release 1 patch, Topically, Daily in AM, # 30 pack/packet, 0 Refills, Maintenance, 06/28/24 10:19:00 AM EST,Partial fill upon patient request if the prescription is for a schedule II opioid drug. Start Date: 06/28/24 Status: Ordered Medication Dispense Status: Completed Quantity: 30.0 Unit: pack/packet Total Allowed Fills: 1 Fills Dispensed: 0 nicotine 4 mg oral transmucosal gum = 4 mg, Chew, Every hour, PRN Other, Nicotine Withdrawal Symptoms (NOT to exceed 24 pieces per day), # 160 each, 0 Refills, Maintenance, 06/28/24 10:21:00 AM EST, Gum, Partial fill upon patient request if the prescription is for a schedule II opioid drug. Start Date: 06/28/24 Status: Ordered Medication Dispense Status: Completed Quantity: 160.0 Unit: each Total Allowed Fills: 1 Fills Dispensed: 0 PARoxetine 30 mg oral tablet 1 tablet = 30 mg, By Mouth, Daily, # 30 tablet, 0 Refills, Maintenance, 03/16/25 10:10:00 AM EDT, Tablet, Partial fill upon patient request if the prescription is for a schedule II opioid drug. Start Date: 03/16/25 Status: Ordered Medication Dispense Status: Completed Quantity: 30.0 Unit: tablet Total Allowed Fills: 1 Fills Dispensed: 0 prazosin 2 mg oral capsule 3 capsule = 6 mg, By Mouth, Daily at bedtime, # 90 capsule, 0 Refills, Maintenance, 06/28/24 10:14:00 AM EST, Capsule, Partial fill upon patient request if the prescription is for a schedule II opioiddrug. Start Date: 06/28/24 Stop Date: 07/28/24 Status: Ordered Medication Dispense Status: Completed Quantity: 90.0 Unit: capsule Total Allowed Fills: 1 Fills Dispensed: 0 prazosin 5 mg oral capsule 5 mg, Capsule, By Mouth, 05/31/25 9:00:00 AM EST Start Date: 05/31/25 Stop Date: 05/31/25 Status: Completed Medication Dispense Status: Completed Total Allowed Fills: 1 Fills Dispensed: 0 pyridoxine 50 mg oral tablet 50 mg, By Mouth, Daily, # 60 tablet, Refills 0, Tot. Refills 0, Maintenance, 03/19/25 12:30:00 PM EDT, Route to Pharmacy Electronically, [facility] 3, Partial fill upon patient request if the prescription is for a schedule II opioid drug., 177, cm, 03/15/25 19:29:00 EDT, Height, 86, kg, 03/15/25 19:29:00 EDT, Dry Weight Start Date: 03/19/25 Status: Ordered Medication Dispense Status: Completed Quantity: 60.0 Unit: tablet Total Allowed Fills: 1 Fills Dispensed: 0 thiamine 100 mg oral tablet 100 mg, By Mouth, 2 times a day, # 60 tablet, Refills 0, Tot. Refills 0, Maintenance, 03/19/25 12:30:00 PM EDT, Route to Pharmacy Electronically, [facility], Partial fill upon patient request if the prescription is for a schedule II opioid drug., 177, cm, 03/15/25 19:29:00 EDT, Height,86, kg, 03/15/25 19:29:00 EDT, Dry Weight Start Date: 03/19/25 Status: Ordered Medication Dispense Status: Completed Quantity: 60.0 Unit: tablet Total Allowed Fills: 1 Fills Dispensed: 0 traZODone 50 mg oral tablet 50 mg, By Mouth, Daily at bedtime, PRN, # 30 each, Refills 0, Tot. Refills 0, Maintenance, Insomnia, 06/28/24 10:26:00 AM EST, Print Requisition, Partial fill upon patient request if the prescription is for a schedule II opioid drug. 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 COVID-19 1 Confirmed 06/28/24 Active Nondependent alcohol abuse, continuous Confirmed Active Obese class I Confirmed Active Opiate dependence Confirmed Active Posttraumatic stress disorder Confirmed Active Recurrent major depressive episodes Confirmed Active Rhabdomyolysis Confirmed Active 1Problem added by Discern Expert Vital Signs Most recent to oldest [Reference Range]: 1 2 3 Height 178 cm (05/31/25 7:26 AM) 178 cm (05/31/25 12:08 AM) 178 cm (05/30/25 8:05 PM) Weight 95.5 kg (05/31/25 7:26 AM) 95.5 kg (05/31/25 12:08 AM) 95.5 kg (05/30/25 8:05 PM) Oxygen Saturation [94-100 %] 98 % (05/31/25 7:26 AM) 100 % (05/31/25 12:08 AM) 100 % (05/30/25 8:05 PM) Pulse Rate [55-90 bpm] 69 bpm (05/31/25 7:26 AM) 86 bpm (05/31/25 12:08 AM) 93 bpm *H* (05/30/25 8:05 PM) Body Mass Index [18.5-24.99 kg/m2] 30.14 kg/m2 *H* (05/31/25 7:26 AM) 30.14 kg/m2 *H* (05/30/25 8:05 PM) Blood Pressure [90-138/55-84 mm Hg] 104/70mm Hg (05/31/25 8:16 AM) 104/70mm Hg (05/31/25 7:26 AM) 132/77mm Hg (05/31/25 12:08 AM) Respiratory Rate [16-30 br/min] 18 br/min (05/31/25 8:16 AM) 18 br/min (05/31/25 8:16 AM) 18 br/min (05/31/25: AM) Temperature [96.8-100.4 DegF] 98.1 DegF (05/31/25: AM) 98.1 DegF (05/31/25 12:08 AM) 98 DegF (05/30/25 8:05 PM) Mode of Delivery (Oxygen) Room air (05/31/25:26 AM) Room air (05/31/25 12:08 AM) Room air (05/30/25 8:05 PM) Blood pressure sites Arm, left (05/31/25:26 AM) Arm, right (05/31/25 12:08 AM) Arm, left (05/30/25 8:05 PM) Temperature Route Oral (05/31/25:26 AM) Oral (05/31/25 12:08 AM) Oral (05/30/25 8:05 PM) Dry Weight 95.5 kg (05/31/25:26 AM) 95.5 kg (05/31/25 12:08 AM) 95.5 kg (05/30/25 8:05 PM) Weight Obtained Via Standing scale (05/31/25 12:08 AM) Standing scale (05/30/25 8:05 PM) Dry Weight Obtained Via Standing scale (05/31/25 12:08 AM) Standing scale (05/30/25 8:05 PM) Social History Social History Type Response Smoking Status Current every day alex shah; Type: Cigarettes; Total pack years: 0.5; entered on: 06/20/17 Sex Male Sex Representation Male (finding) Status N/A Patient Care team information Care Team Personnel Name: Marco Swan RN Position: [facility] RN Member Role: Primary Care Nurse Name: Flor Caruso RN Position: [facility] RN Member Role: Primary Care Nurse Name: Lalitha Bello RN Position: [facility] RN Supv Member Role: Primary Care Nurse Name: Izaiah Macedo RN Position: [facility] RN Member Role: Primary Care Nurse Name: Fely Velasco MA Position: [facility] Office Staff Member Role: Primary Care Nurse Name: Not on Staff, PCP Position: [facility] Physician (General Medicine) Member Role: PCP Name: Verito Santos RN Position: [facility] RN Member Role: Primary Care Nurse Name: Corwin Chun RN Position: [facility] RN Member Role: Primary Care Nurse Name: Fili Winkler RN Position: [facility] RN Member Role: Primary Care Nurse Care Team Related Persons Name: RICCARDO RIVERA Name: CONTACT, NEIGHBOR Name: RAD CHAD Name: PRATIMA PEMBERTON Name: NO ONE, NO ONE Insurance Providers Guarantor name: Health Plan Information #: 1 Payer: [facility] Payer Identifier: DILIP Member Number: [id number] Group Number: [id number] Subscriber Identifier: [id number] Relationship to Subscriber: self Coverage Type: Medicaid (Managed Care) Coverage Verification Date: Telecom: Address:
[2025-06-05 20:41] VITALS: BP 137/71; PULSE 99; RESP 15; TEMP 36.7; O2SAT 99; BMI 29.4
--- OUTSIDE RECORDS SUMMARY | 2025-06-05 20:54 | XMS_ITS | Clinical Summary ---
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 For example, early childhood director or elderly care for an older adult? [...] not to disclose 2024 2:27 AM EDT Last Filed Vital Signs Vital Sign Reading [...] patient's age to complete this topic Insurance [facility] PL[facility] Advance Directives * Full Code - [...] currently active code status orders. 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
--- NOTE | 2025-06-05 20:58 | ED.PSYCH ---
HPI - Psych General Chief Complaint: Psychiatric Symptoms Stated Complaint: SI Time Seen by Provider: 06/05/25 20:57 History of Present Illness ED Provider: nenita HPI Narrative: 34 M with SI has firearms and reports he would kill himself. Related Data Home Medications ?Medication ?Instructions ?Recorded ?Confirmed methadone 10 mg/mL oral 150 mg PO DAILY 08/14/24 06/06/25 concentrate (Methadose) baclofen 10 mg tablet 10 mg PO TID 05/22/25 06/06/25 chlorpromazine 25 mg tablet 25 mg PO TID 05/22/25 06/06/25 clonidine HCl 0.2 mg tablet 0.2 mg PO TID 05/22/25 06/06/25 diphenhydramine HCl 50 mg capsule 50 mg PO BEDTIME 05/22/25 06/06/25 gabapentin 600 mg tablet 600 mg PO TID 05/22/25 06/06/25 hydroxyzine pamoate 50 mg capsule 50 mg PO TID 05/22/25 06/06/25 nicotine (polacrilex) 4 mg buccal 4 mg PO Q2H PRN Nicotine Cravings 05/22/25 06/06/25 lozenge nicotine 21 mg/24 hr daily 1 patch topical DAILY 05/22/25 06/06/25 transdermal patch paroxetine HCl 30 mg tablet 30 mg PO DAILY 05/22/25 06/06/25 prazosin 5 mg capsule 5 mg PO BEDTIME 05/22/25 06/06/25 trazodone 50 mg tablet 50 mg PO BEDTIME 06/06/25 06/06/25 Allergies Allergy/AdvReac Type Severity Reaction Status Date / Time amoxicillin Allergy Hives Verified 06/05/25 20:43 Penicillins (PCN) Allergy Hives Verified 06/05/25 20:43 seafood Allergy Difficulty Verified 06/05/25 20:43 Breathing PMFSH Past Medical History Medical History Polysubstance use disorder Opioid use disorder Depression Antisocial personality disorder Cocaine use disorder, moderate, dependence Benzodiazepine abuse MDD (major depressive disorder), recurrent, severe, with psychosis Alcohol use disorder Mood disorder PTSD (post-traumatic stress disorder) Polysubstance (including opioids) dependence, daily use Social History Social History Household Members: None Household Members Other:: homeless Housing: Homeless Do you presently have visiting nurse or other home services: No Alcohol intake: current Alcohol intake frequency: a few times a month Alcohol type: hard liquor Comment: Pt ambulates independently Patient Tobacco Use Status: Current everyday Tobacco user Tobacco use type: Cigarette Cigarette Packs Per Day: 1 Cigarettes Per Day: 5 Years Smoked: 20 e-Cigarette/Vaping Use: Never Used Second Hand Smoke Exposure: No Substance Use Type: Crack/Cocaine service: No Current occupational status: unemployed Sexual orientation: Straight/Heterosexual Physical Exam Exam: Exam: EXAM: Gen: Alert, awake, well appearing, well hydrated. Head: Atraumatic Eyes: Anicteric, Normal conjunctiva. ENT: Moist mucosa, no pallor. ? Neck: Supple. Skin: ?No observable rash or bruising on exposed or examined skin Respiratory: Breathing comfortably, No distress.Clear to auscultation bilaterally, symmetric chest expansion, No wheeze, rales, ronchi. Cardiovascular: Regular rate and rhythm. No murmurs or rub. Well perfused periphery, warm extremities. No edema. ? Abdominal: No focal tenderness. Soft, no objective distension. No palpable masses or obvious organomegaly. ?No guarding, no rebound tenderness or other peritoneal findings. : No flank tenderness. Neuro: Alert. Gross movement of all extremities intact. ?CN 2-12 intact Psych: Calm. Cooperative. MSK: No grossly visible deformity. Vital signs: See flowsheet Vital Signs: Vital Signs: Last Vital Signs Temp 98.0 F 06/06/25 19:30 Pulse 67 06/06/25 21:44 Resp 18 06/06/25 21:44 BP 101/59 L 06/07/25 09:07 Pulse Ox 98 06/06/25 19:30 O2 Del Method Room Air 06/06/25 19:30 BMI result Body Mass Index 29.4 Course Reevaluation(s) Reevaluation #1: Kai will need a psych consult per CARE team Time: 10:56 Reevaluation #2: DR. Roberto's progress note: 06/06/2025: 14;00; VSS, care team/psych input is appreciated psych consult recommending discharge the patient when patient was re-evaluated by me he said that he has access to weapons at home and he is still feeling suicidal I requested care team re-evaluation. Time: 14:00 Reevaluation #3: 06/07/2025 1107 Melissa Tom PA-C ---> CARE team re-evaluated the patient and spoke with the patient's uncle. Patient's uncle states that he does NOT own ANY guns and is NOT a gun operator bearer systems at all. Patient's uncle states that him and the patient text / speak frequently but do NOT regularly see each other and the patient has not lived with the uncle or been over to his residence in years. Suspect patient is currently using the psychiatric pod / Emergency Department as temporary housing. Patient cleared for discharge. Observation ends at 1107 on 06/07/2025. Medications Administered Discontinued Medications Generic Name Dose Route Start Last Admin Trade Name Archie PRN Reason Stop Dose Admin Baclofen 10 mg 06/06/25 09:00 06/07/25 09:07 Baclofen 10 Mg Tablet PO 10 mg TID BESSIE Administration Chlorpromazine HCl 25 mg 06/06/25 09:00 06/07/25 09:07 Chlorpromazine Hcl 25 Mg Tablet PO 25 mg TID BESSIE Administration Clonidine HCl 0.2 mg 06/06/25 09:00 06/07/25 09:07 Clonidine Hcl 0.2 Mg Tablet PO 0.2 mg TID BESSIE Administration Protocol Diphenhydramine HCl 50 mg 06/06/25 08:30 06/06/25 22:02 Diphenhydramine Hcl 25 Mg Capsule PO 50 mg BEDTIME BESSIE Administration Gabapentin 600 mg 06/06/25 09:00 06/07/25 09:07 Gabapentin 600 Mg Tablet PO 600 mg TID BESSIE Administration Hydroxyzine HCl 50 mg 06/06/25 09:00 06/07/25 09:07 Hydroxyzine Hcl 50 Mg Tablet PO 50 mg TID BESSIE Administration Methadone HCl 150 mg 06/06/25 09:30 06/07/25 09:04 Methadone Hcl 20 Mg/2 Ml Oral.Conc PO 150 mg DAILY BESSIE Administration Nicotine 21 mg 06/06/25 09:00 06/07/25 09:07 Nicotine 21 Mg Patch.Td24 TRANSDERMA 21 mg DAILY BESSIE Administration Paroxetine HCl 30 mg 06/06/25 09:00 06/07/25 10:40 Paroxetine Hcl 30 Mg Tablet PO 30 mg DAILY BESSIE Administration Prazosin HCl 5 mg 06/06/25:00 06/06/25 22:02 Prazosin Hcl 5 Mg Capsule PO 5 mg BEDTIME BESSIE Administration Protocol Trazodone HCl 50 mg 06/06/25 21:00 06/06/25 22:02 Trazodone Hcl 50 Mg Tablet PO 50 mg BEDTIME BESSIE Administration Medical Decision Making Medical Decision Making MDM Narrative: Medical Decision Making: [age] male brought in with SI Patient is on methadone. Not sure last dose. No acute medical complaints Preliminary Favored Differential Diagnosis: Depression, suicidal ideation, high-risk among additional considered etiologies Testing Interpreted Independently: ?See below for details Radiology or Lab testing Results Reviewed: ?See below for details Consults: ?See below for details Independent Historians/External Chart Reviews: ?See below for details Social Determinants of Health Impacting MDM/Planning: ?See below for details Lab Data 06/05/25 21:03 06/05/25 21:03 Labs: Lab Results 06/05/25 06/05/25 Range/Units 21:03 21:31 WBC 8.2 (4.8-10.8) X10*3/uL RBC 4.58 L (4.60-5.80) X10*6/uL Hgb 12.8 L (14.0-18.0) g/dl Hct 37.9 L (42.0-52.0) % MCV 82.8 (80.0-98.0) fL MCH 27.9 (27.0-33.0) pg MCHC 33.8 (31.0-36.0) g/dl RDW 13.2 (11.0-16.0) % Plt Count 285 (160-400) X10*3/uL MPV 10.0 (9.4-12.4) fL Immature Gran % (Auto) 0.2 (0.0-0.4) % Neut % (Auto) 68.1 (45-73) % Lymph % (Auto) 22.9 (20-40) % Fisher % (Auto) 7.9 (2-11) % Eos % (Auto) 0.5 (0-4) % Baso % (Auto) 0.4 (0-2) % Lymph # (Auto) 1.9 (1.2-4.9) X10*3/uL Fisher # (Auto) 0.7 (0.1-1.2) X10*3/uL Eos # (Auto) 0.0 (0.0-0.4) X10*3/uL Baso # (Auto) 0.0 (0.0-0.2) X10*3/uL Abs Immat Gran (auto) 0.02 (0.00-0.03) X10*3/uL Absolute Neuts (auto) 5.6 (2.0-8.3) x10*3/uL Absolute Nucleated RBC 0.000 (0.0-0.012) X10*3/uL Nucleated RBC % (auto) 0.0 (0.0-0.2) /100WBC Sodium 142 (135-145) mmol/L Potassium 3.7 (3.3-5.1) mmol/L Chloride 107 (96-108) mmol/L Carbon Dioxide 20 L (22-29) mmol/L Anion Gap 19 (12-20) BUN 25 H (9-16) mg/dL Creatinine 0.99 (0.5-1.4) mg/dL Estim Creat Clear Calc 120.3 Estimated GFR > 60 Random Glucose 79 (60-115) mg/dL Calcium 10.0 D (8.4-10.2) mg/dL Total Bilirubin 0.6 (0.0-1.0) mg/dL AST 42 H (5-37) U/L ALT 29 (0-40) U/L Alkaline Phosphatase 72 (39-117) U/L Total Protein 8.4 H (6.5-8.0) g/dL Albumin 5.5 H (3.5-5.0) g/dL Urine Opiates Screen Not Detected (Not Detect) Ur Buprenorphine Scrn Not Detected (Not Detect) ng/mL Ur Oxycodone Screen Not Detected (Not Detect) ng/mL Urine Methadone Screen Positive H (Not Detect) ng/mL Urine Fentanyl Screen POSITIVE H (Not Detect) Ur Barbiturates Screen Not Detected (Not Detect) Ur Phencyclidine Scrn Not Detected (Not Detect) Ur Amphetamines Screen Not Detected (Not Detect) U Benzodiazepines Scrn Not Detected (Not Detect) Urine Cocaine Screen POSITIVE H (Not Detect) U Marijuana (THC) Screen POSITIVE H (Not Detect) Ethyl Alcohol < 10 mg/dL Discharge Plan Discharge Clinical Impression: Depression Patient Disposition: Home, Self-Care Instructions: Depression (ED) Additional Instructions: You were seen for a concern regarding your mental / behavioral behavioral health. It is important after this visit today that you follow up with either your mental / behavioral health or primary care provider within 7 days (from today).? Return for any worsening symptoms or concerns such as thoughts of harming yourself or others. Please call 911 immediately if you feel your mental health is worsening.? [place] [facility] Lifeline: Available 24 hours a day, 7 days a week, 365 days a year Dial 988 with any telephone to speak to someone immediately [facility] (Mental / Behavioral health therapist: [address], [place] [phone] [facility]: [address], [place] [phone] Open from 10am - 12pm (walk ins welcome) [facility] Crisis Services: [address], [place] [id number] Walk in hours from 10am - 12pm Behavioral health Network: [address] [place] [id number] [place] [id number] Tuesday through Tuesday 8am - 8pm Tuesday and Tuesday 9am - 5pm IF you are prescribed medications and/or you are taking over the counter medications - it is very important you continue to do so as prescribed / directed unless told otherwise. Follow up with your primary care provider. Return to the emergency department immediately if your symptoms worsen or if you develop any numbness, tingling, dizziness, shortness of breath, difficulty breathing, chest pain, blurry vision, loss of vision, nausea, vomiting, abdominal pain, fever, chills, back pain, or any other complaints. Prescriptions: No Action methadone [Methadose] 10 mg/mL concentrate 150 mg PO DAILY Rx Instructions: Partial Fill upon patient request. gabapentin 600 mg tablet 600 mg PO TID prazosin 5 mg capsule 5 mg PO BEDTIME diphenhydramine HCl 50 mg capsule 50 mg PO BEDTIME hydroxyzine pamoate 50 mg capsule 50 mg PO TID clonidine HCl 0.2 mg tablet 0.2 mg PO TID baclofen 10 mg tablet 10 mg PO TID paroxetine HCl 30 mg tablet 30 mg PO DAILY chlorpromazine 25 mg tablet 25 mg PO TID nicotine 21 mg/24 hr patch 24 hour 1 patch topical DAILY nicotine (polacrilex) 4 mg lozenge 4 mg PO Q2H PRN (Reason: Nicotine Cravings) trazodone 50 mg tablet 50 mg PO BEDTIME Referrals: ARMANDO LOFTON [Primary Care Provider, Internal Medicine] Interventions: [place]-Suicide Risk Severity Scale Last Done: 06/07/25 06:38 Discharge Date/Time: 06/07/25 11:42 Print Language: Bolivian
[2025-06-05 21:11] LABS: Hematocrit 37.9 % (42.0-52.0); Hemoglobin 12.8 g/dl (14.0-18.0); Imm Gran Abs Auto 0.02 X10*3/uL (0.00-0.03); Imm Gran Pct Auto 0.2 % (0.0-0.4); Lymphocytes Absolute Auto 1.9 X10*3/uL (1.2-4.9); MANUAL DIFF FLAG NO; Mean Corpuscular HGB Conc 33.8 g/dl (31.0-36.0); Mean Corpuscular Hemoglobin 27.9 pg (27.0-33.0); Mean Corpuscular Volume 82.8 fL (80.0-98.0); NRBC Abs Auto 0.000 X10*3/uL (0.0-0.012); NRBC Pct Auto 0.0 /100WBC (0.0-0.2); Platelet Count 285 X10*3/uL (160-400); Red Blood Count 4.58 X10*6/uL (4.60-5.80); White Blood Count 8.2 X10*3/uL (4.8-10.8)
[2025-06-05 21:29] LABS: Alanine Aminotransferase 29 U/L (0-40); Albumin Level 5.5 g/dL (3.5-5.0); Alkaline Phosphatase 72 U/L (39-117); Anion Gap 19 (12-20); Aspartate Amino Transferase 42 U/L (5-37); Blood Urea Nitrogen 25 mg/dL (9-16); Calcium 10.0 mg/dL (8.4-10.2); Carbon Dioxide 20 mmol/L (22-29); Chloride 107 mmol/L (96-108); Creatinine Clr Calc Pharmacy 120.3; Estimated Glomerular Filt Rate > 60; Potassium 3.7 mmol/L (3.3-5.1); Sodium 142 mmol/L (135-145); Total Protein 8.4 g/dL (6.5-8.0)
[2025-06-05 21:54] LABS: Cannabinoid Screen Urine POSITIVE (Not Detect)
--- NOTE | 2025-06-06 00:34 | PC.NURSE ---
Received patient. Endorses +SI with plan to shoot self with a gun. Reports he has access to this firearm and will use it if discharged. Denies HI/AVH. Agreeable to alert staff if feeling unsafe. Med Req completed per patient report. Reports he takes 150mg of Methadone, missed his AM dose on 06/05. 15 minute safety checks in place. Meal tray ordered. Continue plan for f/u with Care Team in the AM.
--- NOTE | 2025-06-06 07:01 | PC.NURSE ---
Assumed care of patient appears to be in no apparent distress this am, resting in bed, respirations even and unlabored. Continue plan of care for CARE team billy
[2025-06-06 08:04] VITALS: BP 128/69; PULSE 70; RESP 16; TEMP 36.4; O2SAT 99
--- NOTE | 2025-06-06 08:29 | PHA.MEDREC ---
Pharmacy Consult ? Medication Reconciliation Pharmacy has reviewed the medication reconciliation done by nursing.
--- NOTE | 2025-06-06 08:44 | PC.NURSE ---
Last dose letter obtained from patient belongings, faxed to pharmacy with methadone dose verification form
--- NOTE | 2025-06-06 09:15 | HE.PHANOTE ---
Re Methadone Recieved verification from nursing that pt gets 150mg daily from [facility]. Last given on 06/04/25
[2025-06-06 09:27] VITALS: BP 128/69
[2025-06-06] MEDS: methADONE HCl 20 MG/2 ML ORAL.CONC 150 MG PO (09:27)
[2025-06-06] MEDS: Nicotine 21 MG PATCH.TD24 TRANSDERMA (09:31)
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
[2025-06-06 19:30] VITALS: BP 99/63; PULSE 81; RESP 18; TEMP 36.7; O2SAT 98
[2025-06-06 21:44] VITALS: BP 101/59; PULSE 67; RESP 18
[2025-06-07] MEDS: methADONE HCl 20 MG/2 ML ORAL.CONC 150 MG PO (09:04)
[2025-06-07 09:07] VITALS: BP 101/59
[2025-06-07] MEDS: Nicotine 21 MG PATCH.TD24 TRANSDERMA (09:07)
--- NOTE | 2025-06-07 09:15 | PC.NURSE ---
This Rn assumed care of patient @ 0700 Patient calm and cooperative Vague SI w/o plan VSS and up to date Plan of care on going
== END 2025-06-07 11:42 | disposition home or self-care (01) ==
PROVIDERS: Emergency Provider Emergency Medicine; PCP Nurse Practitioner Family
DX: F32.A Depression, unspecified (principal); R45.851 Suicidal ideations; F11.20 Opioid dependence, uncomplicated; F14.20 Cocaine dependence, uncomplicated; F43.10 Post-traumatic stress disorder, unspecified; F17.210 Nicotine dependence, cigarettes, uncomplicated; Z59.00 Homelessness unspecified; Z79.899 Other long term (current) drug therapy
CPT/HCPCS: 36415; 80053; 80307; 85025; 99285; S9485

== ENCOUNTER → 2025-06-05 20:49 | Outpatient (BNV) | payer OTHER, SELFPAY | PROVIDERS: Emergency Provider Emergency Medicine; PCP Nurse Practitioner Family; Visit Provider Psychiatry & Neurology Psychiatry | DX: F43.10 Post-traumatic stress disorder, unspecified (principal); F14.20 Cocaine dependence, uncomplicated; F11.20 Opioid dependence, uncomplicated | CPT/HCPCS: 99282 ==